=== PATIENT | male | born 1955 | race Caucasian/White ===

== ENCOUNTER 2017-04-21 23:55 | Inpatient (IN) ==
[2017-04-22] MEDS ORDERED: Furosemide 40 MG/4 ML VIAL IVP ONE (00:29)
--- NOTE | 2017-04-22 00:42 | Emergency Department Note ---
Disposition Clinical Impression: Anemia Qualifiers: Anemia type: unspecified type Qualified Code(s): D64.9 - Anemia, unspecified Disposition: Admitted As Inpatient Referrals: Unassigned,Provider [Non-Partnered Physician] - Forms: Work/School Release, ED Satisfaction Letter Time of Disposition: 01:37 SOB HPI - General Chief Complaint: ED General Medical Stated Complaint: "Low BP" Time Seen by Provider: 04/22/17 00:27 Source: patient Mode of arrival: ambulatory Limitations: no limitations Nursing Notes Reviewed: Yes Vital Signs Reviewed: Yes - History of Present Illness Patient reports increased weakness with dyspnea. States he had pneumonia about 2 months ago, and has been feeling "poorly" since that time. He typically has atrial fib and takes Xarelto for that. He is also on [place], Cardiazem. States his blood pressure has been low at home. Tonight his heart rate is in the 40's and in Sinus Bradycardia. Blood pressure is stable. He denies any dark tarry stools, but does have external hemorrhoids and reports he has had some bright red blood with stooling but felt this was from the hemorrhoids. No emesis of blood or coffee ground material. Pt Subjective Complaint: shortness of breath Onset (ago): week(s) (2) Context: recent illness Severity: moderate Consistency/Duration: gradually worsening Improves with: nothing Worsens with: exertion Known history of: recurrent pneumonia Associated symptoms: Reports: wheezing, other (bilateral lower extremity edema ) Treatment prior to arrival: none Cough present: No Sputum production: No - Related Data Home oxygen amount: none Home Medications Medication Instructions Recorded Confirmed Aspirin [Adult Low Dose Aspirin EC] 81 mg PO DAILY 02/02/16 07/30/16 Atorvastatin Calcium [Lipitor] 80 mg PO DAILY 02/02/16 07/30/16 Lisinopril [Zestril] 10 mg PO DAILY 02/02/16 07/30/16 Metoprolol [Lopressor] 50 mg PO BID 02/02/16 07/30/16 HYDROcodone/Acet 10/325 mg [[place] 1 tab PO Q6HR PRN 07/30/16 07/30/16 10-325 mg] Nitroglycerin [Nitrostat] 0.4 mg SL AD 07/30/16 07/30/16 Previous Rx's Medication Instructions Recorded Budesonide/Formoterol 80/4.5 1 puff IH BID #1 hfa.aer.ad 07/28/16 [Symbicort 80/4.5] Ipratropium/Albuterol Neb [Duoneb] 3 ml IH [id number] PRN #30 inhsol 07/28/16 Tiotropium [Spiriva] 18 mcg IH DAILY #30 capsule 07/28/16 predniSONE [PredniSONE] 10 mg PO DAILY 12 Days 07/28/16 Diltiazem CD (24hr) [Cardizem CD] 240 mg PO DAILY #30 cap.er.24h 08/02/16 GuaiFENesin ER [Mucinex] 600 mg PO BID tbbp.12hr 08/02/16 Rivaroxaban [Xarelto] 20 mg PO 1700 #30 tablet 08/02/16 levoFLOXacin [Levofloxacin] 750 mg PO DAILY #12 tablet 08/02/16 Levofloxacin [Levaquin] 750 mg PO DAILY #9 tablet 03/11/17 Allergies Allergy/AdvReac Type Severity Reaction Status Date / Time No Known Allergies Allergy Verified 04/22/17 00:07 Constitutional: Denies: fever, chills, weakness, weight change Eyes: Denies: eye pain, eye discharge, vision change ENT ED: Denies: ear pain, throat pain, dental pain, hearing loss, epistaxis, congestion, dysphagia Cardiovascular: Reports: dyspnea on exertion Respiratory: Reports: dyspnea Gastrointestinal: Denies: abdominal pain, nausea, vomiting, diarrhea, constipation, hematemesis, melena, hematochezia Genitourinary: Denies: urgency, dysuria, frequency, hematuria Musculoskeletal: Denies: back pain, neck pain, arthralgia, myalgia Integumentary: Denies: rash, abrasion, lesions Past Medical History - Past Medical History Attestation: Yes The following information was validated with the patient. Source: patient, nursing notes reviewed Medical history: Reports: asthma, atrial fibrillation, cardiomyopathy, CHF, COPD , coronary artery disease, hyperlipidemia, hypertension Surgical history: Reports: coronary bypass (CABG), herniorrhaphy, other Psychiatric history: Reports: anxiety - Social History Smoking Status: Former smoker Smokeless Tobacco Status: No Alcohol use: Reports: none Drug use: Reports: marijuana Physical Exam - General Limitations: no limitations General appearance: alert - Head Head exam: atraumatic, normocephalic, normal inspection - Eye Eye exam: Present: normal appearance, PERRL, EOMI - ENT ENT exam: normal exam, normal oropharynx, mucous membranes moist - Neck Neck exam: Present: normal inspection, full ROM, trachea midline - Chest Chest inspection: Present: normal inspection, symmetric chest wall rise - Respiratory Respiratory exam: Present: normal lung sounds bilaterally - Cardiovascular Cardiovascular exam: Present: normal rhythm, bradycardia - Abdominal Exam Abdominal exam: Present: soft, Non-Tender. Absent: tenderness, distention, guarding, rebound, rigidity - Extremities Exam Extremities exam: Present: normal inspection, full ROM. Absent: tenderness, pedal edema - Back Exam Back exam: Present: normal inspection, full ROM. Absent: tenderness - Neurological Exam Neurological exam: Present: alert, oriented X3, CN II-XII intact, normal gait, reflexes normal - Psychiatric Psychiatric exam: Present: normal affect, normal mood - Skin Skin exam: Present: warm, dry, intact, normal color Course Vital Signs Temperature 98.1 F 04/22/17 00:07 Pulse Rate 43 04/22/17 00:07 Respiratory Rate 24 04/22/17 00:07 Blood Pressure 112/62 04/22/17 00:07 O2 Sat by Pulse Oximetry 93 04/22/17 00:07 Temperature 98.1 F 04/22/17 00:07 Pulse Rate 44 04/22/17 01:23 Respiratory Rate 18 04/22/17 01:23 Blood Pressure 122/77 04/22/17 01:23 O2 Sat by Pulse Oximetry 100 04/22/17 01:23 Oxygen Delivery Oxygen Delivery Nasal Cannula Shortness of Breath/Dyspnea - [facility] Narrative Medical decision making narrative: anemia - Lab Data Lab results reviewed: Yes I reviewed the patient's lab results. Result diagrams: 04/22/17 00:51 04/22/17 00:51 Lab Results 04/22/17 04/22/17 04/22/17 Range/Units 00:51 00:51 00:51 WBC 10.4 (4.3-11.1) K/mcL RBC 2.82 L (4.19-5.50) M/mcL Hgb 6.7 L (12.9-16.9) g/dL Hct 22.9 L (37.5-50.1) % MCV 81.2 L (83.0-100.0) fL MCH 23.8 L (28.0-33.3) pg MCHC 29.3 L (31.6-35.5) g/dL RDW 16.0 H (11.5-14.5) % Plt Count 268 (140-400) K/mcL MPV 9.6 (9.4-12.4) fL Immature Gran % 0.5 (0-4) % Seg Neutrophils % 70.4 % Lymphocytes % 16.4 % Monocytes % 11.2 % Eosinophils % 1.4 % Basophils % 0.1 % Neutrophils # 7.3 (1.6-8.9) K/mcL Lymphocytes # 1.7 (0.6-4.6) K/mcL Monocytes # 1.2 (0.0-1.3) K/mcL Eosinophils # 0.2 (0.0-0.6) K/mcL Basophils # 0.0 (0.0-0.2) K/mcL Sodium 139 (136-145) mEq/L Potassium 4.7 H (3.5-4.5) mEq/L Chloride 106 (98-109) mEq/L Carbon Dioxide 24 (19-29) mEq/L BUN 27 H (8-26) mg/dL Creatinine 0.96 (0.72-1.25) mg/dL Est GFR ( Amer) > 60 (> 60) Est GFR (Non-Af Amer) > 60 (> 60) BUN/Creatinine Ratio 28 H (6-26) Glucose 102 H (70-99) mg/dL Calculated Osmolality 293 (280-300) Lactic Acid 0.8 (0.5-2.2) mmol/L Calcium 8.6 (8.6-10.8) mg/dL Troponin I (0-0.03) ng/mL B-Natriuretic Peptide (0-100) pg/mL 04/22/17 04/22/17 Range/Units 00:51 00:51 WBC (4.3-11.1) K/mcL RBC (4.19-5.50) M/mcL Hgb (12.9-16.9) g/dL Hct (37.5-50.1) % MCV (83.0-100.0) fL MCH (28.0-33.3) pg MCHC (31.6-35.5) g/dL RDW (11.5-14.5) % Plt Count (140-400) K/mcL MPV (9.4-12.4) fL Immature Gran % (0-4) % Seg Neutrophils % % Lymphocytes % % Monocytes % % Eosinophils % % Basophils % % Neutrophils # (1.6-8.9) K/mcL Lymphocytes # (0.6-4.6) K/mcL Monocytes # (0.0-1.3) K/mcL Eosinophils # (0.0-0.6) K/mcL Basophils # (0.0-0.2) K/mcL Sodium (136-145) mEq/L Potassium (3.5-4.5) mEq/L Chloride (98-109) mEq/L Carbon Dioxide (19-29) mEq/L BUN (8-26) mg/dL Creatinine (0.72-1.25) mg/dL Est GFR ( Amer) (> 60) Est GFR (Non-Af Amer) (> 60) BUN/Creatinine Ratio (6-26) Glucose (70-99) mg/dL Calculated Osmolality (280-300) Lactic Acid (0.5-2.2) mmol/L Calcium (8.6-10.8) mg/dL Troponin I 0.03 (0-0.03) ng/mL B-Natriuretic Peptide 583 H (0-100) pg/mL - Radiology Data Radiology results reviewed: Yes I reviewed the patient's radiology results.
[2017-04-22 00:57] LABS: Hematocrit 22.9 % (37.5-50.1); Immature Granulocytes % 0.5 % (0-4); Lymphocytes % 16.4 %; Mean Corpuscular HGB Conc 29.3 g/dL (31.6-35.5); Mean Corpuscular Hemoglobin 23.8 pg (28.0-33.3); Mean Corpuscular Volume 81.2 fL (83.0-100.0); Mean Platelet Volume 9.6 fL (9.4-12.4); Monocytes % 11.2 %; Platelet Count 268 K/mcL (140-400); Red Blood Count 2.82 M/mcL (4.19-5.50); Segmented Neutrophils % 70.4 %
[2017-04-22 00:58] LABS: Basophils % 0.1 %; Eosinophils # 0.2 K/mcL (0.0-0.6); Eosinophils % 1.4 %; Hemoglobin 6.7 g/dL (12.9-16.9); Lymphocytes # 1.7 K/mcL (0.6-4.6); Monocytes # 1.2 K/mcL (0.0-1.3); Neutrophils # 7.3 K/mcL (1.6-8.9)
[2017-04-22 01:10] LABS: BUN/Creatinine Ratio 28 (6-26); Blood Urea Nitrogen 27 mg/dL (8-26); Calcium 8.6 mg/dL (8.6-10.8); Carbon Dioxide 24 mEq/L (19-29); Chloride 106 mEq/L (98-109); Glucose 102 mg/dL (70-99); Osmolality,Calculated 293 (280-300); Potassium 4.7 mEq/L (3.5-4.5); Sodium 139 mEq/L (136-145); eGFR For African Americans > 60 (> 60); eGFR For Non-African Americans > 60 (> 60)
[2017-04-22] MEDS ORDERED: Ondansetron 4 MG/2 ML VIAL IVP PRN (01:46)
[2017-04-22] MEDS ORDERED: Naloxone 0.4 MG/ML INJ IVP PRN (01:46)
[2017-04-22] MEDS ORDERED: Acetaminophen 325 MG TABLET PO PRN (01:46)
--- NOTE | 2017-04-22 01:52 | Internal Med History&Physical ---
Date of Encounter: 04/22/17 Time of Encounter: 02:00 Assessment and Plan (1) Anemia Current visit: Yes Status: Acute Patient presents with hemoglobin of 6.7 which is down from 12 over 3 months ago. He presents with shortness of breath, lightheadedness and swelling in his legs. Patient has been on anticoagulation for the past year. He has never had a colonoscopy. He will be admitted to the hospital to inpatient status. Expected to be in the hospital for at least 2 midnights. High risk due to need for blood transfusion and close monitoring as the patient is at risk of hemorrhagic shock from further blood loss. Expected discharge disposition is to home. Hold anticoagulation. Transfuse 3 units. Qualifiers: Anemia type: iron deficiency Iron deficiency anemia type: chronic blood loss Qualified Code(s): D50.0 - Iron deficiency anemia secondary to blood loss (chronic) (2) Atrial fibrillation Current visit: Yes Status: Chronic Status post transesophageal echocardiogram and cardioversion. Patient has bradycardia on his EKG. Continue Cardizem. Hold beta rickie. Hold anticoagulation as the patient has anemia which is likely due to GI blood loss. Qualifiers: Atrial fibrillation type: paroxysmal Qualified Code(s): I48.0 - Paroxysmal atrial fibrillation (3) CAD (coronary artery disease) Current visit: Yes Status: Chronic Status post CABG in 2013. Hold aspirin as the patient presents with anemia that is likely due to GI blood loss. Resume statin. Hold beta rickie as the patient has bradycardia. Resume Cardizem. Qualifiers: Coronary Disease-Associated Artery/Lesion type: [place] artery [place] vs. transplanted heart: [place] heart Associated angina: without angina Qualified Code(s): I25.10 - Atherosclerotic heart disease of [place] coronary artery without angina pectoris (4) Hypertension Current visit: Yes Status: Chronic Patient has borderline low blood pressure. Hold antihypertensive medications for now. Qualifiers: Hypertension type: essential hypertension Qualified Code(s): I10 - Essential (primary) hypertension (5) GI bleed Current visit: Yes Status: Suspected Suspected GI bleed as the cause of his anemia. Hold anticoagulation. Patient never had colonoscopy. If the patient has any GI bleed during the hospital, will consider GI consult for colonoscopy inpatient. Otherwise, the patient's hemoglobin remained stable after transfusion, he can be deferred to GI as an outpatient for colonoscopy. Qualifiers: GI bleed type/associated pathology: unspecified gastrointestinal hemorrhage type Qualified Code(s): K92.2 - Gastrointestinal hemorrhage, unspecified (6) Screening for colon cancer Current visit: Yes Status: Acute Needs inpatient versus outpatient referral to GI for colonoscopy depending on his progress. Patient is agreeable to colonoscopy by GI. Internal Medicine - H&P: HPI Chief complaint: Shortness of breath Admitted From: Emergency Dept Plans for Post Hospital Care: Home History of present illness: Mr. Johnson is a 62 year old male with a history of coronary artery disease status post CABG and atrial fibrillation status post cardioversion currently on anticoagulation presents to the emergency department due to shortness of breath over the past 1 month. Patient states that his shortness of breath has been going on for one month and has been gradually getting worse to the point now where he short of breath even at rest. One month ago, he called his primary care physician and has been seen by his physician multiple times. He was given antibiotics for presumed COPD exacerbation and he states that he had minimal improvement in his shortness of breath. Shortness of breath is associated with cough productive of green colored sputum and wheezing. He also reports lightheadedness that gets worse with activity and relieves with rest. He denies any chest pain, palpitations, nausea, vomiting, abdominal pain, diarrhea acculturation. He denies any history of blood in the stools or lack colored stools. He reports swelling in his legs over the past week which is worse today. All these symptoms prompted him to present to the emergency department today. In the emergency room, his hemoglobin was found to be 6.7 down from 12 about 3 months ago. He states that he has been on anticoagulation for over one year for a clot in his arm. He states that his CABG surgery was in 2013. He also reports that he has been having low blood pressure of 90 systolic all day today. He called his gas compressor operator who recommended that he hold his lisinopril and go to the emergency department if it does not make him feel better. He denies any recent weight changes. He denies any recent changes in his appetite. He states that he has never had a colonoscopy done. Past Med Surg Social Fam HX - Past Medical History Attestation: Yes The following information was validated with the patient. Source: patient Medical history: asthma, atrial fibrillation, cardiomyopathy, CHF, COPD, coronary artery disease, hyperlipidemia, hypertension Psychiatric history: anxiety - Past Surgical History Surgical History: coronary bypass (CABG), herniorrhaphy, other - Social History Smoking Status: Former smoker Smokeless Tobacco Status: No Alcohol use: none Drug use: marijuana Current living situation: Home, With Family Activity Level: Independent ambulation Recent Out of Country Travel Within the Last 8 Weeks: No Exposure or Possible Exposure to Illness During Travel: No - Family History Mother Living Status: Hx Family Neurologic Disorders: Yes (Alzheimer's) Father Living Status: Hx Family GI Disorders: Yes (Liver disease, alcoholism) Internal Medicine - H&P: Meds Aspirin [Adult Low Dose Aspirin EC] 81 mg PO DAILY 02/02/16 [History] Atorvastatin Calcium [Lipitor] 80 mg PO DAILY 02/02/16 [History] Lisinopril [Zestril] 10 mg PO DAILY 02/02/16 [History] Metoprolol [Lopressor] 50 mg PO BID 02/02/16 [History] Budesonide/Formoterol 80/4.5 [Symbicort 80/4.5] 1 puff IH BID #1 hfa.aer.ad [Rx] Ipratropium/Albuterol Neb [Duoneb] 3 ml IH [id number] PRN #30 inhsol 07/28/16 [Rx] Tiotropium [Spiriva] 18 mcg IH DAILY #30 capsule 07/28/16 [Rx] predniSONE [PredniSONE] 10 mg PO DAILY 12 Days 07/28/16 [Rx] HYDROcodone/Acet 10/325 mg [[place] 10-325 mg] 1 tab PO Q6HR PRN 07/30/16 [History ] Nitroglycerin [Nitrostat] 0.4 mg SL AD 07/30/16 [History] Diltiazem CD (24hr) [Cardizem CD] 240 mg PO DAILY #30 cap.er.24h 08/02/16 [Rx] GuaiFENesin ER [Mucinex] 600 mg PO BID tbbp.12hr 08/02/16 [Rx] Rivaroxaban [Xarelto] 20 mg PO 1700 #30 tablet 08/02/16 [Rx] levoFLOXacin [Levofloxacin] 750 mg PO DAILY #12 tablet 08/02/16 [Rx] Levofloxacin [Levaquin] 750 mg PO DAILY #9 tablet 03/11/17 [Rx] Allergies No Known Allergies Allergy (Verified 04/22/17 00:07) All Systems PM: A 10-system review of systems was performed and is negative for pertinent findings except as documented above in the HPI. Review of systems: 10 systems reviewed and negative except as mentioned in the HPI - Constitutional Vitals: Temp Pulse Resp BP Pulse Ox 98.1 F 44 18 122/77 100 04/22/17 00:07 04/22/17 01:23 04/22/17 01:23 04/22/17 01:23 04/22/17 01:23 Exam: Gen.: Lying in bed. Mild distress. Eyes: Pupils equal, round and reactive to light. Extraocular muscles intact. ENT: Moist mucous membranes. No oropharyngeal erythema or discharge. Chest: Clear to auscultation bilaterally. No adventitious sounds present. CVS: First and second heart sounds present. No murmurs, rubs or gallops. Bradycardia present. Abdomen: Soft, nontender, nondistended. Bowel sounds present. No hepatosplenomegaly. Skin: No decubitus ulcers appreciated. MATHEMATICS TEACHER: No focal neuro deficits present. Psychiatric: Alert, awake and oriented to time, place and person. Lymphatic system: No lymphadenopathy appreciated Internal Med - H&P Results - Labs CBC & Chem 7: 04/22/17 02:05 04/22/17 00:51 Labs: Short CBC 04/22/17 Range/Units 00:51 WBC 10.4 (4.3-11.1) K/mcL Hgb 6.7 L (12.9-16.9) g/dL Hct 22.9 L (37.5-50.1) % Plt Count 268 (140-400) K/mcL Neutrophils # 7.3 (1.6-8.9) K/mcL BMP 04/22/17 00:51 Sodium 139 Potassium 4.7 H Chloride 106 Carbon Dioxide 24 BUN 27 H Creatinine 0.96 Glucose 102 H Calcium 8.6 Cardiac Enzymes 04/22/17 Range/Units 00:51 Troponin I 0.03 (0-0.03) ng/mL - EKG Data -: EKG Interpreted by Myself EKG shows normal: sinus rhythm Rate: bradycardia - EKG Data Prior EKG available for review: yes When compared to previous EKG: there are significant changes (Prior showed A.Fib ) - Diagnostic Studies Chest x-ray Status: image reviewed by me (s/p CABG; Hyperinflation)
[2017-04-22 02:06] LABS: Immature Reticulocyte % 14.4 % (11.0-38.0); Retculocyte # 0.05 M/mcL (0.05-0.10); Reticulocyte % 1.6 % (1.6-2.8)
[2017-04-22 02:15] LABS: % Iron Saturation 7 % (20-55); Iron 22 mcg/dL (65-175); Lactate Dehydrogenase 214 Units/L (159-327); Transferrin 212 mg/dL (174-364)
[2017-04-22 02:17] LABS: Basophils % 0.1 %; Eosinophils # 0.2 K/mcL (0.0-0.6); Eosinophils % 1.5 %; Immature Granulocytes % 0.4 % (0-4); Lymphocytes # 1.7 K/mcL (0.6-4.6); Mean Corpuscular HGB Conc 29.2 g/dL (31.6-35.5); Mean Corpuscular Hemoglobin 23.6 pg (28.0-33.3); Mean Corpuscular Volume 80.8 fL (83.0-100.0); Mean Platelet Volume 9.8 fL (9.4-12.4); Monocytes # 1.1 K/mcL (0.0-1.3); Monocytes % 10.5 %; Neutrophils # 7.5 K/mcL (1.6-8.9); Platelet Count 296 K/mcL (140-400); Red Blood Count 2.97 M/mcL (4.19-5.50); Red Cell Distribution Width 16.1 % (11.5-14.5); Segmented Neutrophils % 71.5 %
[2017-04-22 02:29] LABS: Alanine Aminotransferase 19 Units/L (0-55); Albumin 3.1 g/dL (3.5-5.0); Albumin/Globulin Ratio 0.9 (1.1-2.2); Alkaline Phosphatase 79 Units/L (38-126); Aspartate Amino Transferase 26 Units/L (5-34); BUN/Creatinine Ratio 25 (6-26); Bilirubin,Total 0.3 mg/dL (0.2-1.2); Blood Urea Nitrogen 27 mg/dL (8-26); Calcium 8.9 mg/dL (8.6-10.8); Carbon Dioxide 27 mEq/L (19-29); Chloride 104 mEq/L (98-109); Globulin 3.4 g/dL (2.4-3.5); Glucose 109 mg/dL (70-99); Osmolality,Calculated 292 (280-300); Potassium 4.3 mEq/L (3.5-4.5); Sodium 138 mEq/L (136-145); Total Protein 6.5 g/dL (6.0-8.3); eGFR For African Americans > 60 (> 60); eGFR For Non-African Americans > 60 (> 60)
[2017-04-22 02:35] LABS: Ferritin 25 ng/ml (22-275)
[2017-04-22] MEDS ORDERED: 0.9 % Sodium Chloride 250 ML ONE ×3 (03:48→13:30)
[2017-04-22] MEDS: Diltiazem CD (24hr) 240 MG CAPSULE PO SCH (09:01)
[2017-04-22] MEDS ORDERED: Sennosides/Docusate Sodium TABLET PO PRN (09:14)
[2017-04-22] MEDS: Budesonide/Formoterol 80/4.5 MDI IH SCH ×2 (11:01→21:50)
[2017-04-22] MEDS ORDERED: Furosemide 20 MG/2 ML VIAL IVP ONE (15:38)
[2017-04-22] MEDS: *HR* HYDROcodone/Acet 10/325 mg TABLET PO PRN ×2 (15:52→21:59)
[2017-04-22 17:13] LABS: Hematocrit 30.6 % (37.5-50.1)
[2017-04-22 17:15] LABS: Hemoglobin 9.5 g/dL (12.9-16.9)
[2017-04-23] MEDS: *HR* HYDROcodone/Acet 10/325 mg TABLET PO PRN ×2 (04:14→10:06)
[2017-04-23] MEDS: Budesonide/Formoterol 80/4.5 MDI IH SCH (07:45)
[2017-04-23] MEDS: Diltiazem CD (24hr) 240 MG CAPSULE PO SCH (07:52)
[2017-04-23 08:39] LABS: Basophils % 0.3 %; Eosinophils # 0.2 K/mcL (0.0-0.6); Hematocrit 35.2 % (37.5-50.1); Hemoglobin 10.9 g/dL (12.9-16.9); Immature Granulocytes % 0.6 % (0-4); Lymphocytes # 1.8 K/mcL (0.6-4.6); Lymphocytes % 15.8 %; Mean Corpuscular Hemoglobin 25.2 pg (28.0-33.3); Mean Corpuscular Volume 81.3 fL (83.0-100.0); Mean Platelet Volume 9.9 fL (9.4-12.4); Monocytes # 0.9 K/mcL (0.0-1.3); Monocytes % 7.7 %; Neutrophils # 8.3 K/mcL (1.6-8.9); Platelet Count 287 K/mcL (140-400); Red Blood Count 4.33 M/mcL (4.19-5.50); Segmented Neutrophils % 73.6 %
[2017-04-23 08:49] LABS: BUN/Creatinine Ratio 16 (6-26); Calcium 9.1 mg/dL (8.6-10.8); Carbon Dioxide 26 mEq/L (19-29); Chloride 105 mEq/L (98-109); Glucose 97 mg/dL (70-99); Osmolality,Calculated 290 (280-300); Potassium 4.2 mEq/L (3.5-4.5); Sodium 140 mEq/L (136-145); eGFR For African Americans > 60 (> 60); eGFR For Non-African Americans > 60 (> 60)
[2017-04-23 08:50] LABS: Blood Urea Nitrogen 13 mg/dL (8-26)
[2017-04-23] MEDS ORDERED: Tiotropium 18 MCG inhalation IH SCH (09:00)
--- NOTE | 2017-04-23 09:53 | Electrocardiograph Report ---
[address] [place] [address] Test Date: 2017-04-22 Pat Name: Jaylen Johnson Department: 104 Room: 3A43 Gender: M Public Health Informatician: [facility] : 1955 Requested By: Mansoor Lara Order Number: [id number] Reading MD: Juve Hassan MD Measurements Intervals [place] Rate: 42 P: 83 VT: 190 QRS: 82 QRSD: 92 T: 73 QT: 474 QTc: 417 Interpretive Statements SINUS BRADYCARDIA Electronically Signed On 04-23-2017 9:51:38 EDT by Juve Hassan MD
[2017-04-23 10:55] VITALS: BP 140/81
--- NOTE | 2017-04-23 11:30 | Discharge Summary ---
Date of Encounter: 04/23/17 Time of Encounter: 11:28 - Discharge Diagnosis (1) Hypertension Priority: Secondary Status: Chronic Qualifiers: Hypertension type: essential hypertension Qualified Code(s): I10 - Essential (primary) hypertension (2) Dyslipidemia Priority: Secondary Status: Chronic (3) CAD (coronary artery disease) Priority: Secondary Status: Chronic Qualifiers: Coronary Disease-Associated Artery/Lesion type: [place] artery [place] vs. transplanted heart: [place] heart Associated angina: without angina Qualified Code(s): I25.10 - Atherosclerotic heart disease of [place] coronary artery without angina pectoris (4) History of coronary artery bypass graft Priority: Secondary Status: Chronic (5) Atrial fibrillation Priority: Secondary Status: Chronic Qualifiers: Atrial fibrillation type: paroxysmal Qualified Code(s): I48.0 - Paroxysmal atrial fibrillation (6) Anemia Priority: Primary Status: Acute Qualifiers: Anemia type: iron deficiency Iron deficiency anemia type: chronic blood loss Qualified Code(s): D50.0 - Iron deficiency anemia secondary to blood loss (chronic) (7) GI bleed Priority: Primary Status: Suspected Qualifiers: GI bleed type/associated pathology: unspecified gastrointestinal hemorrhage type Qualified Code(s): K92.2 - Gastrointestinal hemorrhage, unspecified - Discharge Medications Prescriptions: Hydrocortisone [Anusol-Hc] 30 gm RC DAILY #2 cream..g. Home Medications: Aspirin [Adult Low Dose Aspirin EC] 81 mg PO DAILY 02/02/16 [History] Atorvastatin Calcium [Lipitor] 80 mg PO DAILY 02/02/16 [History] Lisinopril [Zestril] 10 mg PO DAILY 02/02/16 [History] Budesonide/Formoterol 80/4.5 [Symbicort 80/4.5] 1 puff IH BID #1 hfa.aer.ad [Rx] Tiotropium [Spiriva] 18 mcg IH DAILY #30 capsule 07/28/16 [Rx] HYDROcodone/Acet 10/325 mg [[place] 10-325 mg] 1 tab PO Q6HR PRN 07/30/16 [History ] Nitroglycerin [Nitrostat] 0.4 mg SL AD PRN 07/30/16 [History] Diltiazem CD (24hr) [Cardizem CD] 240 mg PO DAILY #30 cap.er.24h 08/02/16 [Rx] Amiodarone [Cordarone] 200 mg PO DAILY 04/22/17 [History] Clotrimazole [Mycelex Davin] 10 mg MM TID 04/22/17 [History] Levalbuterol Neb [Xopenex Neb] 0.63 mg IH TID 04/22/17 [History] diazePAM [Valium] 5 mg PO TID PRN 04/22/17 [History] Hydrocortisone [Anusol-Hc] 30 gm RC DAILY #2 cream..g. 04/23/17 [Rx] Allergies/Adverse Reactions: Allergies No Known Allergies Allergy (Verified 04/22/17 00:07) Date of admission: 04/22/17 02:10 Primary care physician: Eleazar Kee CNP Discharging clinician: Darcy Darnell date of discharge: 04/23/17 - Patient Status Disposition: Home, Self-Care Condition: Fair Functional capacity at discharge: independent ambulation Overall status at discharge: patient is back to baseline - Discharge Instructions Instructions: Atrial Fibrillation (DC), Anemia (GEN) Follow Up With: Josep Alcala DO [Partnered Physician] - 04/24/17 4:30 pm Eleazar Kee CNP [Primary Care Provider] - 04/30/17 11:00 am - Diet and Activity Activity: resume usual activities as tolerated Diet: advance to your usual diet Interval History: Mr. Johnson is a 62 year old male with a history of coronary artery disease status post CABG and atrial fibrillation status post cardioversion currently on anticoagulation presents to the emergency department due to shortness of breath over the past 1 month. In the emergency room, his hemoglobin was found to be 6.7 down from 12 about 3 months ago. He states that he has been on anticoagulation for over one year for a clot in his arm. He states that his CABG surgery was in 2013. He also reports that he has been having low blood pressure of 90 systolic all day today. He called his pictures editor who recommended that he hold his lisinopril and go to the emergency department if it does not make him feel better. he reports BRB SC and says that he suffers from chronic hemorrhoids and has been having bleeding SC for a few months now. He states that he has never had a colonoscopy done. HE denies any abdominal pain , n/v his xarelto was held adn he was trasfused with 3 units of PRBC his repeat h/h is 10.5 today and he is asymptomatic, he was noted to have sinus bradycardia at high 40s -50s on presentation. his metoprolol has been held and his cardizem was only restarted for the concern of bradycardia. he will be given an appt. to see surgery as OP for colonoscopy and was also advised to follow up with his pictures editor at [facility] to restart his xarelto and metoprolol patient agrees with the plan and is being dc in stable condition. Hospital course: Mr. Johnson is a 62 year old male Time spent discussing smoking cessation with patient: more than 10 minutes - Time Spent with Patient Total time spent providing and/or coordinating discharge services: Greater than 30 minutes - Constitutional Vitals: Temp Pulse Resp BP Pulse Ox 98.3 F 61 16 140/81 92 04/23/17 10:54 04/23/17 10:54 04/23/17 10:54 04/23/17 10:54 04/23/17 10:54 General appearance: Present: A&O X 3 Exam: Gen.: Lying in bed. Mild distress. Eyes: Pupils equal, round and reactive to light. Extraocular muscles intact. ENT: Moist mucous membranes. No oropharyngeal erythema or discharge. Chest: Clear to auscultation bilaterally. No adventitious sounds present. CVS: First and second heart sounds present. No murmurs, rubs or gallops. Bradycardia present. Abdomen: Soft, nontender, nondistended. Bowel sounds present. No hepatosplenomegaly. Skin: No decubitus ulcers appreciated. CERTIFIED NURSE PRACTITIONER: No focal neuro deficits present. Psychiatric: Alert, awake and oriented to time, place and person. Lymphatic system: No lymphadenopathy appreciated
== END 2017-04-23 13:15 | disposition home or self-care (01) | DRG 812 ==
LOC: EMEROO 23:55 → 3ANU 04-22 02:10
PROVIDERS: ADMIT Internal Medicine Sleep Medicine; ATTEND Internal Medicine Endocrinology, Diabetes & Metabolism

== ENCOUNTER 2017-10-04 18:10 | Inpatient (IN) ==
[2017-10-04] MEDS ORDERED: Aspirin 81 MG TAB.CHEW PO ONE (18:22)
[2017-10-04] MEDS ORDERED: methylPREDNISolone 125 MG/2 ML VIAL IVP ONE (18:23)
[2017-10-04] MEDS ORDERED: Ipratropium/Albuterol Neb 3 ML IH ONE (18:23)
--- NOTE | 2017-10-04 18:25 | Emergency Department Note ---
START Narrative - START START: START NOTE: Patient was seen and evaluated upon his arrival to the medical treatment area. He complains of dyspnea and chest heaviness. History of intermittently oxygen dependent COPD. Also has a history of previous CABG. Patient overall chest and on exam with slight increased work of breathing. Family at bedside. Labs, portable chest x-ray, EKG were ordered. He will be given neb therapy and Solu-Medrol. Further care to be undertaken by the oncoming physician Dr. Lara
[2017-10-04 18:42] LABS: Basophils # 0.1 K/mcL (0.0-0.2); Basophils % 0.5 %; Eosinophils # 0.1 K/mcL (0.0-0.6); Eosinophils % 1.2 %; Hematocrit 29.7 % (37.5-50.1); Hemoglobin 9.4 g/dL (12.9-16.9); Immature Granulocytes % 0.3 % (0-4); Lymphocytes # 1.4 K/mcL (0.6-4.6); Lymphocytes % 14.1 %; Mean Corpuscular HGB Conc 31.6 g/dL (31.6-35.5); Mean Corpuscular Hemoglobin 27.9 pg (28.0-33.3); Mean Corpuscular Volume 88.1 fL (83.0-100.0); Mean Platelet Volume 9.9 fL (9.4-12.4); Monocytes # 0.8 K/mcL (0.0-1.3); Monocytes % 8.2 %; Neutrophils # 7.6 K/mcL (1.6-8.9); Platelet Count 268 K/mcL (140-400); Red Blood Count 3.37 M/mcL (4.19-5.50); Red Cell Distribution Width 14.7 % (11.5-14.5); Segmented Neutrophils % 75.7 %
[2017-10-04 18:46] LABS: INR 1.4; Prothrombin Time 15.3 Seconds (9.4-12.1)
[2017-10-04 18:56] LABS: Alanine Aminotransferase 18 Units/L (0-55); Albumin 3.2 g/dL (3.5-5.0); Albumin/Globulin Ratio 0.8 (1.1-2.2); Alkaline Phosphatase 100 Units/L (38-126); Aspartate Amino Transferase 19 Units/L (5-34); BUN/Creatinine Ratio 15 (6-26); Bilirubin,Direct 0.2 mg/dL (0.0-0.5); Bilirubin,Indirect 0.2 mg/dL (0.0-1.2); Bilirubin,Total 0.4 mg/dL (0.2-1.2); Blood Urea Nitrogen 18 mg/dL (8-26); Calcium 9.2 mg/dL (8.6-10.8); Carbon Dioxide 25 mEq/L (19-29); Chloride 106 mEq/L (98-109); Globulin 4.2 g/dL (2.4-3.5); Glucose 153 mg/dL (70-99); Osmolality,Calculated 295 (280-300); Potassium 4.4 mEq/L (3.5-4.5); Sodium 140 mEq/L (136-145); Total Protein 7.4 g/dL (6.0-8.3); eGFR For African Americans > 60 (> 60); eGFR For Non-African Americans > 60 (> 60)
[2017-10-04] MEDS ORDERED: *HR* FentaNYL (PF) 100 MCG/2 ML VIAL IVP ONE (19:26)
[2017-10-04] MEDS ORDERED: *HR* Midazolam HCl 2 MG/2 ML VIAL IVP ONE (19:27)
[2017-10-04] MEDS ORDERED: 0.9 % Sodium Chloride 1,000 ML ONE (19:36)
--- NOTE | 2017-10-04 20:20 | Emergency Department Note ---
Disposition Clinical Impression: Spontaneous pneumothorax Chest pain Qualifiers: Chest pain type: unspecified Qualified Code(s): R07.9 - Chest pain, unspecified Dyspnea Qualifiers: Dyspnea type: unspecified Qualified Code(s): R06.00 - Dyspnea, unspecified Disposition: Admitted As Inpatient Condition: Good Time of Disposition: 20:36 General Adult HPI - General Chief complaint: ED Chest Pain Stated complaint: ZONIA/CP Time Seen by Provider: 10/04/17 18:19 Source: patient, family Limitations: no limitations Nursing Notes Reviewed: Yes Vital Signs Reviewed: Yes - History of Present Illness HPI Narrative: 62-year-old male history of CAD s/p CABG, COPD, hypertension, atrial fibrillation presents to the ED for sudden shortness of breath and chest pain. Reports worsening shortness of breath over the past few days but this morning 3 AM he had sudden shortness of breath with chest pain especially with deep inspiration. Denies any recent trauma or injury. This was when he woke up from sleep. He was recently admitted for pneumonia. He has been noncompliant with his inhalers area denies any diaphoresis, nausea or vomiting. He takes Eliquis for prior DVT and his atrial fibrillation Pain Scale: 4 - Related Data Home Medications Medication Instructions Recorded Confirmed Aspirin [Adult Low Dose Aspirin EC] 81 mg PO DAILY 02/02/16 10/04/17 Atorvastatin Calcium [Lipitor] 80 mg PO DAILY 02/02/16 10/04/17 Lisinopril [Zestril] 10 mg PO BID 02/02/16 04/22/17 HYDROcodone/Acet 10/325 mg [[place] 1 tab PO Q6HR PRN 07/30/16 10/04/17 10-325 mg] Nitroglycerin [Nitrostat] 0.4 mg SL AD PRN 07/30/16 10/04/17 Amiodarone [Cordarone] 200 mg PO DAILY 04/22/17 10/04/17 Levalbuterol Neb [Xopenex Neb] 0.63 mg IH TID 04/22/17 10/04/17 Previous Rx's Medication Instructions Recorded Budesonide/Formoterol 80/4.5 1 puff IH BID #1 hfa.aer.ad 07/28/16 [Symbicort 80/4.5] Tiotropium [Spiriva] 18 mcg IH DAILY #30 capsule 07/28/16 Allergies Allergy/AdvReac Type Severity Reaction Status Date / Time No Known Allergies Allergy Verified 10/04/17 18:15 All systems ED: reviewed and negative except as stated. Review of Systems: As Per HPI Constitutional: Denies: fever, chills ENT ED: Denies: congestion Cardiovascular: Reports: chest pain, dyspnea on exertion Respiratory: Reports: cough, dyspnea Gastrointestinal: Denies: abdominal pain, nausea, vomiting Genitourinary: Denies: urgency, dysuria Musculoskeletal: Denies: back pain, neck pain Integumentary: Denies: rash, abrasion Neurological: Denies: headache, weakness, numbness Psychiatric: Reports: anxiety. Denies: depression Endocrine: Denies: fatigue Hematological/Lymphatic: Reports: easy bleeding. Denies: easy bruising Past Medical History - Past Medical History Attestation: Yes The following information was validated with the patient. Source: patient Medical history: Reports: asthma, atrial fibrillation, cardiomyopathy, CHF, COPD , coronary artery disease, hyperlipidemia, hypertension Surgical history: Reports: coronary bypass (CABG), herniorrhaphy, other Psychiatric history: Reports: anxiety - Social History Smoking Status: Former smoker Smokeless Tobacco Status: No Alcohol use: Reports: none Drug use: Reports: marijuana Physical Exam - General Limitations: no limitations General appearance: alert, in no apparent distress - Head Head exam: atraumatic, normocephalic, normal inspection - Eye Eye exam: Present: normal appearance, PERRL, EOMI - ENT ENT exam: normal exam, normal oropharynx, mucous membranes moist - Neck Neck exam: Present: normal inspection, full ROM, trachea midline - Chest Chest inspection: Present: normal inspection. Absent: tenderness - Expanded Chest Exam Trauma: Absent: crepitus, ecchymosis, wound - Respiratory Respiratory exam: Present: respiratory distress, wheezes (left), other ( diminished breath sounds RIGHT) - Expanded Respiratory Exam Location: decreased breath sounds: Right - Cardiovascular Cardiovascular exam: Present: regular rate, normal rhythm, normal heart sounds - Abdominal Exam Abdominal exam: Present: soft, Non-Tender, normal bowel sounds. Absent: tenderness, distention, guarding, rebound, rigidity - Extremities Exam Extremities exam: Present: normal inspection, full ROM, normal capillary refill , pedal edema (+1). Absent: tenderness, calf tenderness - Back Exam Back exam: Present: normal inspection, full ROM. Absent: tenderness - Neurological Exam Neurological exam: Present: alert, oriented X3 - Skin Skin exam: Present: warm, dry, intact, normal color Course Course Narrative: 62-year-old male history of COPD and CAD presents with difficulty breathing and chest heaviness. Started at 3 AM this morning. Recently admitted for pneumonia. He had some diminished breath sounds and treated with Solu-Medrol and DuoNeb treatments. Some mild improvement. EKG was reviewed and did not show any acute ischemic findings. Patient received full dose aspirin. Mild elevation and troponin. Reviewed his chest x-ray and showed a right side pneumothorax of moderate size which can explain the troponin elevation. He has some mild chronic anemia. Explained the risks and benefits of the pneumothorax and chest to placement. Informed consent was obtained. Under supervision by Dr. Lara and myself, Dr. Carias placed a right chest tube 28 [place] with immediate release of air and improvement of oxygen saturation. No complications , he was under cardiac monitoring the entire time and received 100 mg fentanyl and 2 mg versed while on 4 L nasal cannula. A timeout was performed. Post procedural chest x-ray reveals chest tube an adequate position. Patient will require admission for chest tube management. Impression is pneumothorax and dyspnea. - Reevaluation(s) Reevaluation #1: Please see separate procedure note by Dr. Carias for chest tube thoracostomy placement. - Consultations Consultation #1: Spoke with on-call hospitalist al Renee to admit for dyspnea, pneumothorax, chest pain. No further orders at this time Time: 21:01 Vital Signs Temperature 98.4 F 10/04/17 18:15 Pulse Rate 70 10/04/17 18:15 Respiratory Rate 17 10/04/17 18:15 Blood Pressure 131/77 10/04/17 18:15 O2 Sat by Pulse Oximetry 94 10/04/17 18:15 Temperature 97.8 F 10/05/17 03:53 Pulse Rate 66 10/05/17 03:53 Respiratory Rate 16 10/05/17 04:18 Blood Pressure 125/72 10/05/17 03:53 O2 Sat by Pulse Oximetry 92 10/05/17 04:18 Oxygen Delivery Oxygen Delivery Nasal Cannula Medical Decision Making - Medical Records Medical records reviewed: Yes I reviewed the patient's medical records. - Lab Data Lab results reviewed: Yes I reviewed the patient's lab results. Result diagrams: 10/05/17 04:22 10/05/17 04:22 Lab Results 10/04/17 10/04/17 10/04/17 Range/Units 18:32 18:32 18:32 WBC 10.1 (4.3-11.1) K/mcL RBC 3.37 L (4.19-5.50) M/mcL Hgb 9.4 L (12.9-16.9) g/dL Hct 29.7 L (37.5-50.1) % MCV 88.1 (83.0-100.0) fL MCH 27.9 L (28.0-33.3) pg MCHC 31.6 (31.6-35.5) g/dL RDW 14.7 H (11.5-14.5) % Plt Count 268 (140-400) K/mcL MPV 9.9 (9.4-12.4) fL Immature Gran % 0.3 (0-4) % Seg Neutrophils % 75.7 % Lymphocytes % 14.1 % Monocytes % 8.2 % Eosinophils % 1.2 % Basophils % 0.5 % Neutrophils # 7.6 (1.6-8.9) K/mcL Lymphocytes # 1.4 (0.6-4.6) K/mcL Monocytes # 0.8 (0.0-1.3) K/mcL Eosinophils # 0.1 (0.0-0.6) K/mcL Basophils # 0.1 (0.0-0.2) K/mcL PT 15.3 H (9.4-12.1) Seconds INR 1.4 Sodium (136-145) mEq/L Potassium (3.5-4.5) mEq/L Chloride (98-109) mEq/L Carbon Dioxide (19-29) mEq/L BUN (8-26) mg/dL Creatinine (0.72-1.25) mg/dL Est GFR ( Amer) (> 60) Est GFR (Non-Af Amer) (> 60) BUN/Creatinine Ratio (6-26) Glucose (70-99) mg/dL Calculated Osmolality (280-300) Calcium (8.6-10.8) mg/dL Total Bilirubin (0.2-1.2) mg/dL Direct Bilirubin (0.0-0.5) mg/dL Indirect Bilirubin (0.0-1.2) mg/dL AST (5-34) Units/L ALT (0-55) Units/L Alkaline Phosphatase (38-126) Units/L Troponin I (0-0.03) ng/mL B-Natriuretic Peptide 154 H (0-100) pg/mL Serum Total Protein (6.0-8.3) g/dL Albumin (3.5-5.0) g/dL Globulin (2.4-3.5) g/dL Albumin/Globulin Ratio (1.1-2.2) 10/04/17 10/04/17 Range/Units 18:32 18:32 WBC (4.3-11.1) K/mcL RBC (4.19-5.50) M/mcL Hgb (12.9-16.9) g/dL Hct (37.5-50.1) % MCV (83.0-100.0) fL MCH (28.0-33.3) pg MCHC (31.6-35.5) g/dL RDW (11.5-14.5) % Plt Count (140-400) K/mcL MPV (9.4-12.4) fL Immature Gran % (0-4) % Seg Neutrophils % % Lymphocytes % % Monocytes % % Eosinophils % % Basophils % % Neutrophils # (1.6-8.9) K/mcL Lymphocytes # (0.6-4.6) K/mcL Monocytes # (0.0-1.3) K/mcL Eosinophils # (0.0-0.6) K/mcL Basophils # (0.0-0.2) K/mcL PT (9.4-12.1) Seconds INR Sodium 140 (136-145) mEq/L Potassium 4.4 (3.5-4.5) mEq/L Chloride 106 (98-109) mEq/L Carbon Dioxide 25 (19-29) mEq/L BUN 18 (8-26) mg/dL Creatinine 1.19 (0.72-1.25) mg/dL Est GFR ( Amer) > 60 (> 60) Est GFR (Non-Af Amer) > 60 (> 60) BUN/Creatinine Ratio 15 (6-26) Glucose 153 H (70-99) mg/dL Calculated Osmolality 295 (280-300) Calcium 9.2 (8.6-10.8) mg/dL Total Bilirubin 0.4 (0.2-1.2) mg/dL Direct Bilirubin 0.2 (0.0-0.5) mg/dL Indirect Bilirubin 0.2 (0.0-1.2) mg/dL AST 19 (5-34) Units/L ALT 18 (0-55) Units/L Alkaline Phosphatase 100 (38-126) Units/L Troponin I 0.04 H* (0-0.03) ng/mL B-Natriuretic Peptide (0-100) pg/mL Serum Total Protein 7.4 (6.0-8.3) g/dL Albumin 3.2 L (3.5-5.0) g/dL Globulin 4.2 H (2.4-3.5) g/dL Albumin/Globulin Ratio 0.8 L (1.1-2.2) - Radiology Data Radiology results reviewed: Yes I reviewed the patient's radiology results. Chest X-Ray 10/04/17 20:13 IMPRESSION: Right-sided chest tube placement, with interval near complete evacuation of the right-sided pneumothorax. D/ / Pradip Bejarano MD / Pradip Bejarano MD Interpreting Provider: Pradip Bejarano MD - EKG Data EKG #1 EKG attestation: Yes I reviewed and interpreted this EKG. EKG results narrative: EKG performed 1822 sinus rhythm 67 bpm, normal axis, no ST elevation or depression, no T wave inversion, good R wave progression, intervals are within normal limits. Compared to old EKG performed 04/22/2017 showed sinus bradycardia 42 bpm, otherwise similar findings. No acute ischemic changes. Critical Care Time Critical Care Time: Yes Total Critical Care Time: 35 Attestation: Critical care performed: Time is exclusive of separately billable procedures. Time includes: direct patient care, patient reassessment, coordination of patient care, interpretation of data (laboratory data, radiology data, and respiratory data), review of patient's medical records, medical consultation and documentation of patient care. Procedures included in critical care time: Procedures excluded from critical care time: Right tube thoracostomy. Attestation Statement - Attestation Attestation: I, Mansoor Lara MD, personally evaluated this patient and discussed their management with the resident physician. I reviewed the resident's note and agree with the documented findings, medical decision making, and plan of care. 62-year-old male with history of COPD who is on home oxygen presents to the emergency department complaining of some increased shortness of breath over about the past week however about 3 AM today he awoke with significantly increased shortness of breath associated with some pleuritic chest pain. Some cough and some sputum production. No fever. Patient received DuoNeb treatments and Solu-Medrol on arrival. He continued to have the pleuritic chest pain and shortness of breath after treatments. Oxygen saturations in the low 90s. On examination patient is a well-developed well-nourished male in no acute distress. He is alert and oriented 3. There is no cyanosis or diaphoresis. Breath sounds are decreased on the right. There are some scattered expiratory wheezes bilaterally, worse on the left. Heart regular rate and rhythm. Abdomen soft and nontender with normal bowel sounds. Labs reviewed. Stable anemia. Troponin 0.04. EKG showed a normal sinus rhythm with no acute ischemic changes. Chest x-ray revealed a moderate sized right pneumothorax. Written consent was obtained and a chest tube was placed on the right without difficulty. Chest tube was placed by the resident, Dr. Carias, assisted by Dr. López under my direct supervision throughout the procedure. Patient tolerated the procedure well and post procedure x-ray shows reinflation of the collapsed lung. The hospitalist, Dr. Ansari, was consulted and accepted admission of the patient.
--- NOTE | 2017-10-04 20:58 | Emergency Department Note ---
Disposition Clinical Impression: Spontaneous pneumothorax Chest pain Qualifiers: Chest pain type: unspecified Qualified Code(s): R07.9 - Chest pain, unspecified Dyspnea Qualifiers: Dyspnea type: unspecified Qualified Code(s): R06.00 - Dyspnea, unspecified Disposition: Admitted As Inpatient Condition: Good Referrals: Eleazar Kee CNP [Primary Care Provider] - General Adult HPI - General Chief complaint: ED Chest Pain Stated complaint: ZONIA/CP Time Seen by Provider: 10/04/17 18:19 Source: patient, family Limitations: no limitations - History of Present Illness Pain Scale: 4 - Related Data Home Medications Medication Instructions Recorded Confirmed Aspirin [Adult Low Dose Aspirin EC] 81 mg PO DAILY 02/02/16 10/04/17 Atorvastatin Calcium [Lipitor] 80 mg PO DAILY 02/02/16 10/04/17 Lisinopril [Zestril] 10 mg PO BID 02/02/16 04/22/17 HYDROcodone/Acet 10/325 mg [[place] 1 tab PO Q6HR PRN 07/30/16 10/04/17 10-325 mg] Nitroglycerin [Nitrostat] 0.4 mg SL AD PRN 07/30/16 10/04/17 Amiodarone [Cordarone] 200 mg PO DAILY 04/22/17 10/04/17 Levalbuterol Neb [Xopenex Neb] 0.63 mg IH TID 04/22/17 10/04/17 Previous Rx's Medication Instructions Recorded Budesonide/Formoterol 80/4.5 1 puff IH BID #1 hfa.aer.ad 07/28/16 [Symbicort 80/4.5] Tiotropium [Spiriva] 18 mcg IH DAILY #30 capsule 07/28/16 Allergies Allergy/AdvReac Type Severity Reaction Status Date / Time No Known Allergies Allergy Verified 10/04/17 18:15 Constitutional: Denies: fever, chills ENT ED: Denies: congestion Cardiovascular: Reports: chest pain, dyspnea on exertion Respiratory: Reports: cough, dyspnea Gastrointestinal: Denies: abdominal pain, nausea, vomiting Genitourinary: Denies: urgency, dysuria Musculoskeletal: Denies: back pain, neck pain Integumentary: Denies: rash, abrasion Neurological: Denies: headache, weakness, numbness Psychiatric: Reports: anxiety. Denies: depression Endocrine: Denies: fatigue Hematological/Lymphatic: Reports: easy bleeding. Denies: easy bruising Past Medical History - Past Medical History Medical history: Reports: asthma, atrial fibrillation, cardiomyopathy, CHF, COPD , coronary artery disease, hyperlipidemia, hypertension Surgical history: Reports: coronary bypass (CABG), herniorrhaphy, other Psychiatric history: Reports: anxiety - Social History Smoking Status: Former smoker Smokeless Tobacco Status: No Alcohol use: Reports: none Drug use: Reports: marijuana Physical Exam - General Limitations: no limitations General appearance: alert, in no apparent distress Course Vital Signs Temperature 98.4 F 10/04/17 18:15 Pulse Rate 70 10/04/17 18:15 Respiratory Rate 17 10/04/17 18:15 Blood Pressure 131/77 10/04/17 18:15 O2 Sat by Pulse Oximetry 94 10/04/17 18:15 Temperature 98.4 F 10/04/17 18:15 Pulse Rate 66 10/04/17 20:05 Respiratory Rate 18 10/04/17 20:05 Blood Pressure 118/84 10/04/17 20:05 O2 Sat by Pulse Oximetry 96 10/04/17 20:05 Oxygen Delivery Oxygen Delivery Nasal Cannula Procedures - Chest Tube Chest Tube 1 Chest Tube Location: right Size of Tube (cm): 28 Chest Tube Prep: betadine prep Local Anesthetic: lidocaine 2%, with epi Incision Made With: #10 blade Post Procedure: sutured to skin, sterile dressing applied Tube Drainage: none Post Procedure CXR?: Yes Patient Tolerated Procedure: Yes Medical Decision Making - [facility] Narrative Medical decision making narrative: Chest X-Ray 10/04/17 20:13 IMPRESSION: Right-sided chest tube placement, with interval near complete evacuation of the right-sided pneumothorax. D/ / Pradip Bejarano MD / Pradip Bejarano MD Interpreting Provider: Pradip Bejarano MD - Lab Data Result diagrams: 10/04/17 18:32 10/04/17 18:32 Lab Results 10/04/17 10/04/17 10/04/17 Range/Units 18:32 18:32 18:32 WBC 10.1 (4.3-11.1) K/mcL RBC 3.37 L (4.19-5.50) M/mcL Hgb 9.4 L (12.9-16.9) g/dL Hct 29.7 L (37.5-50.1) % MCV 88.1 (83.0-100.0) fL MCH 27.9 L (28.0-33.3) pg MCHC 31.6 (31.6-35.5) g/dL RDW 14.7 H (11.5-14.5) % Plt Count 268 (140-400) K/mcL MPV 9.9 (9.4-12.4) fL Immature Gran % 0.3 (0-4) % Seg Neutrophils % 75.7 % Lymphocytes % 14.1 % Monocytes % 8.2 % Eosinophils % 1.2 % Basophils % 0.5 % Neutrophils # 7.6 (1.6-8.9) K/mcL Lymphocytes # 1.4 (0.6-4.6) K/mcL Monocytes # 0.8 (0.0-1.3) K/mcL Eosinophils # 0.1 (0.0-0.6) K/mcL Basophils # 0.1 (0.0-0.2) K/mcL PT 15.3 H (9.4-12.1) Seconds INR 1.4 Sodium (136-145) mEq/L Potassium (3.5-4.5) mEq/L Chloride (98-109) mEq/L Carbon Dioxide (19-29) mEq/L BUN (8-26) mg/dL Creatinine (0.72-1.25) mg/dL Est GFR ( Amer) (> 60) Est GFR (Non-Af Amer) (> 60) BUN/Creatinine Ratio (6-26) Glucose (70-99) mg/dL Calculated Osmolality (280-300) Calcium (8.6-10.8) mg/dL Total Bilirubin (0.2-1.2) mg/dL Direct Bilirubin (0.0-0.5) mg/dL Indirect Bilirubin (0.0-1.2) mg/dL AST (5-34) Units/L ALT (0-55) Units/L Alkaline Phosphatase (38-126) Units/L Troponin I (0-0.03) ng/mL B-Natriuretic Peptide 154 H (0-100) pg/mL Serum Total Protein (6.0-8.3) g/dL Albumin (3.5-5.0) g/dL Globulin (2.4-3.5) g/dL Albumin/Globulin Ratio (1.1-2.2) 10/04/17 10/04/17 Range/Units 18:32 18:32 WBC (4.3-11.1) K/mcL RBC (4.19-5.50) M/mcL Hgb (12.9-16.9) g/dL Hct (37.5-50.1) % MCV (83.0-100.0) fL MCH (28.0-33.3) pg MCHC (31.6-35.5) g/dL RDW (11.5-14.5) % Plt Count (140-400) K/mcL MPV (9.4-12.4) fL Immature Gran % (0-4) % Seg Neutrophils % % Lymphocytes % % Monocytes % % Eosinophils % % Basophils % % Neutrophils # (1.6-8.9) K/mcL Lymphocytes # (0.6-4.6) K/mcL Monocytes # (0.0-1.3) K/mcL Eosinophils # (0.0-0.6) K/mcL Basophils # (0.0-0.2) K/mcL PT (9.4-12.1) Seconds INR Sodium 140 (136-145) mEq/L Potassium 4.4 (3.5-4.5) mEq/L Chloride 106 (98-109) mEq/L Carbon Dioxide 25 (19-29) mEq/L BUN 18 (8-26) mg/dL Creatinine 1.19 (0.72-1.25) mg/dL Est GFR ( Amer) > 60 (> 60) Est GFR (Non-Af Amer) > 60 (> 60) BUN/Creatinine Ratio 15 (6-26) Glucose 153 H (70-99) mg/dL Calculated Osmolality 295 (280-300) Calcium 9.2 (8.6-10.8) mg/dL Total Bilirubin 0.4 (0.2-1.2) mg/dL Direct Bilirubin 0.2 (0.0-0.5) mg/dL Indirect Bilirubin 0.2 (0.0-1.2) mg/dL AST 19 (5-34) Units/L ALT 18 (0-55) Units/L Alkaline Phosphatase 100 (38-126) Units/L Troponin I 0.04 H* (0-0.03) ng/mL B-Natriuretic Peptide (0-100) pg/mL Serum Total Protein 7.4 (6.0-8.3) g/dL Albumin 3.2 L (3.5-5.0) g/dL Globulin 4.2 H (2.4-3.5) g/dL Albumin/Globulin Ratio 0.8 L (1.1-2.2)
[2017-10-04] MEDS ORDERED: *HR* HYDROmorphone (PF) 1 MG/ML SYRINGE IVP ONE (20:59)
[2017-10-04] MEDS ORDERED: Nitroglycerin 0.4 MG TAB.SUBL SL PRN (22:17)
[2017-10-04] MEDS ORDERED: Acetaminophen 325 MG TABLET PO PRN (22:19)
[2017-10-04] MEDS ORDERED: Naloxone 0.4 MG/ML INJ IVP PRN (22:19)
[2017-10-04] MEDS ORDERED: Ondansetron 4 MG/2 ML VIAL IVP PRN (22:19)
[2017-10-04] MEDS ORDERED: 0.9 % Sodium Chloride 1,000 ML IVC SCH ×2 (22:30→23:24)
--- NOTE | 2017-10-04 22:39 | Internal Med History&Physical ---
Date of Encounter: 10/04/17 Time of Encounter: 22:25 Assessment and Plan (1) Spontaneous pneumothorax Current visit: Yes Status: Acute Spontaneous right-sided pneumothorax - s/p right-sided chest tube placement in ED Chest x-ray - initial moderate to large right-sided pneumothorax, repeat x-ray shows near complete evacuation of right-sided pneumothorax EKG - sinus rhythm with no acute ST-T changes Troponin - 0.02, cycle troponin BNP - 154 Continue chest tube, O2 via NC, DuoNeb breathing treatment, empiric IV Rocephin Pulmonology consult for pneumothorax and chest tube Cardiac telemetry, pulse ox, labs in a.m., monitor closely (2) Atrial fibrillation Current visit: Yes Status: Chronic Chronic atrial fibrillation, rate controlled - patient had DCCV on 07/31/2016 Continue home dose of Amiodarone - patient is unsure if Amiodarone has been discontinued Patient states he is on Eliquis for anticoagulation - restart when chest tube is removed Qualifiers: Atrial fibrillation type: chronic Qualified Code(s): I48.2 - Chronic atrial fibrillation (3) COPD (chronic obstructive pulmonary disease) Current visit: Yes Status: Chronic COPD, stable - not in exacerbation Continue DuoNeb breathing treatment, Symbicort, O2 via NC, Spiriva Cardiac telemetry, pulse ox Qualifiers: COPD type: unspecified COPD Qualified Code(s): J44.9 - Chronic obstructive pulmonary disease, unspecified (4) Hypertension Current visit: No Status: Chronic Essential hypertension, controlled, monitor Continue home dose of Lisinopril Qualifiers: Hypertension type: essential hypertension Qualified Code(s): I10 - Essential (primary) hypertension (5) CAD (coronary artery disease) Current visit: No Status: Chronic Coronary artery disease status post CABG, stable Continue Aspirin, Lipitor Troponin - 0.02, cycle troponin EKG - sinus rhythm with no acute ST-T changes Echocardiogram (07/30/2016) - LVEF 50-55%, normal size and function, mild LVH, indeterminant diastolic function, normal RV size and function, severely dilated LA Qualifiers: Coronary Disease-Associated Artery/Lesion type: [place] artery [place] vs. transplanted heart: [place] heart Associated angina: without angina Qualified Code(s): I25.10 - Atherosclerotic heart disease of [place] coronary artery without angina pectoris (6) DVT prophylaxis Current visit: Yes Status: Acute Heparin subcutaneous Restart home dose of Eliquis after chest tube has been removed Internal Medicine - H&P: HPI Chief complaint: Shortness of breath, chest pain Admitted From: Emergency Dept Plans for Post Hospital Care: Home History of present illness: Mr. Johnson is a 62 year old male with PMH of CAD s/p CABG, hypertension, CHF, COPD oxygen dependent, HLD, Atrial fibrillation, ?DVT and anxiety. Patient presents to the ED with complaints of shortness of breath and chest pain. Examined in the room. Patient is awake and alert. Not in any distress. Able to provide all history. No family members at bedside. Patient states he developed shortness of breath and chest pain about 2-3 days ago. Symptoms have been gradually worsening. He states that it around 3 AM this morning, he developed sudden onset right-sided chest pain, which was worse with deep inspiration. Denies any recent injury. Patient also complains of productive cough with green colored sputum. Patient states he has not used his because her breathing treatment for shortness of breath. Pain and shortness of breath worse with exertion. No alleviating factors. Rates the pain 5/10. Describes it as dull. Not radiating. No other associated symptoms. No complaints. Denies palpitations, headache with dizziness. Denies abdominal pain or vomiting or diarrhea or fever. Initial workup in the ED revealed moderate to large right-sided pneumothorax. Patient states he has never had this problem in the past. Right-sided chest tube was placed in the ED. Repeat chest x-ray shows near complete evacuation of right-sided pneumothorax. Patient now states he feels better. He has been explained about his condition and plan of care in detail. He understood and agreed. No unanswered questions. CODE STATUS full code. Past Med Surg Social Fam HX - Past Medical History Medical history: asthma, atrial fibrillation, cardiomyopathy, CHF, COPD, coronary artery disease, hyperlipidemia, hypertension Psychiatric history: anxiety - Past Surgical History Surgical History: coronary bypass (CABG), herniorrhaphy, other - Social History Smoking Status: Former smoker Smokeless Tobacco Status: No Alcohol use: none Drug use: marijuana - Family History Mother Living Status: Hx Family Neurologic Disorders: Yes (Alzheimer's) Father Living Status: Hx Family GI Disorders: Yes (Liver disease, alcoholism) Internal Medicine - H&P: Meds Aspirin [Adult Low Dose Aspirin EC] 81 mg PO DAILY 03/23/16 [History] Atorvastatin Calcium [Lipitor] 80 mg PO DAILY 02/02/16 [History] Lisinopril [Zestril] 10 mg PO BID 02/02/16 [History] Budesonide/Formoterol 80/4.5 [Symbicort 80/4.5] 1 puff IH BID #1 [id number] [Rx] Tiotropium [Spiriva] 18 mcg IH DAILY #30 capsule 07/28/16 [Rx] HYDROcodone/Acet 10/325 mg [[place] 10-325 mg] 1 tab PO Q6HR PRN 07/30/16 [History ] Nitroglycerin [Nitrostat] 0.4 mg SL AD PRN 07/30/16 [History] Amiodarone [Cordarone] 200 mg PO DAILY 04/22/17 [History] Levalbuterol Neb [Xopenex Neb] 0.63 mg IH TID 04/22/17 [History] 3 Allergy/AdvReac Type Severity Reaction Status Date / Time No Known Allergies Allergy Verified 10/04/17 18:15 All Systems PM: A 10-system review of systems was performed and is negative for pertinent findings except as documented above in the HPI. - Constitutional Constitutional: fatigue, no fever(s), no weakness - EENT Eyes: no blurry vision - Cardiovascular Cardiovascular ROS IM: chest pain, dyspnea, dyspnea on exertion, no diaphoresis , no edema, no lightheadedness, no orthopnea, no palpitations, no syncope - Respiratory Respiratory: cough, dyspnea, dyspnea on exertion, wheezing, chest congestion, no hemoptysis - Gastrointestinal Gastrointestinal: no abdominal pain, no bloating, no diarrhea, no hematochezia, no nausea, no vomiting - Genitourinary Genitourinary ROS male: no dysuria - Musculoskeletal Musculoskeletal ROS IM: no back pain - Neurological Neurological ROS: no abnormal gait, no confusion, no dizziness, no numbness, no tingling - Constitutional Vitals: Temp Pulse Resp BP Pulse Ox 98.4 F 81 18 138/74 96 10/04/17 21:57 10/04/17 21:57 10/04/17 21:57 10/04/17 21:57 10/04/17 20:05 General appearance: Present: cooperative, A&O X 3, pleasant, no acute distress, answers questions appropriately - Head Head exam: Present: atraumatic - Eye Eye exam: Present: EOMI - ENT ENT exam: Present: mucous membranes dry - Respiratory Respiratory exam: Present: rhonchi (Mild bilateral). Absent: chest wall tenderness, rales, respiratory distress, tachypnea Additional comments: Good air entry bilaterally. Right-sided chest tube in place. - Cardiovascular Cardiovascular exam: Present: irregular rhythm, +S1, +S2 - GI/Abdominal GI/Abdominal exam: Present: soft. Absent: distended, firm, guarding, tenderness - Extremities Exam Extremities exam: Present: pedal edema (Bilateral lower leg 1+ edema), radial pulses palpable and symmetrical. Absent: calf tenderness, cyanotic - Neurological Exam Neurological exam: Present: alert, oriented X3, no focal deficits. Absent: facial droop, speech deficit Internal Med - H&P Results - Labs CBC & Chem 7: 10/04/17 18:32 10/04/17 18:32
[2017-10-04] MEDS: *HR* Morphine 2 MG/ML SYRINGE IVP PRN (22:56)
[2017-10-04] MEDS: Ipratropium/Albuterol Neb 3 ML IH SCH (22:57)
[2017-10-05] MEDS: cefTRIAXone 1,000 MG in Water for inj. (sterile) 10 ML IVP SCH (01:06)
[2017-10-05 02:01] LABS: Bilirubin,Urine Negative (Negative); Blood,Urine Trace (Negative); Clarity,Urine Clear (Clear); Color,Urine Yellow (Yellow); Glucose,Urine (UA) Normal (Normal); Ketones,Urine Negative (Negative); Leukocyte Esterase,Urine Negative (Negative); Nitrite,Urine Negative (Negative); Protein,Urine Negative (Neg-Trace); Specific Gravity,Urine 1.024 (1.010-1.025); Urobilinogen,Urine Normal (Normal)
[2017-10-05 02:03] LABS: Bacteria,Urine None Seen per hpf (None-Few); Hyaline Casts,Urine None Seen per lpf (None-Few); RBC,Urine 0-3 per hpf (0-3); Squamous Epithelial Cell,Urine Few per lpf (None-Few); WBC,Urine 0-3 per hpf (0-3)
[2017-10-05] MEDS: *HR* Morphine 2 MG/ML SYRINGE IVP PRN ×5 (03:18→21:25)
[2017-10-05] MEDS: Ipratropium/Albuterol Neb 3 ML IH SCH ×4 (04:18→21:43)
[2017-10-05 04:45] LABS: Basophils % 0.1 %; Hematocrit 29.5 % (37.5-50.1); Hemoglobin 9.2 g/dL (12.9-16.9); Immature Granulocytes % 0.5 % (0-4); Lymphocytes # 0.5 K/mcL (0.6-4.6); Lymphocytes % 3.6 %; Mean Corpuscular HGB Conc 31.2 g/dL (31.6-35.5); Mean Corpuscular Hemoglobin 27.8 pg (28.0-33.3); Mean Corpuscular Volume 89.1 fL (83.0-100.0); Mean Platelet Volume 10.7 fL (9.4-12.4); Monocytes # 0.1 K/mcL (0.0-1.3); Monocytes % 0.5 %; Neutrophils # 12.1 K/mcL (1.6-8.9); Platelet Count 277 K/mcL (140-400); Red Blood Count 3.31 M/mcL (4.19-5.50); Red Cell Distribution Width 14.8 % (11.5-14.5); Segmented Neutrophils % 95.3 %
[2017-10-05 04:55] LABS: BUN/Creatinine Ratio 20 (6-26); Blood Urea Nitrogen 18 mg/dL (8-26); Calcium 9.2 mg/dL (8.6-10.8); Carbon Dioxide 23 mEq/L (19-29); Chloride 107 mEq/L (98-109); Glucose 205 mg/dL (70-99); Magnesium 2.2 mg/dL (1.6-2.6); Osmolality,Calculated 294 (280-300); Potassium 4.4 mEq/L (3.5-4.5); Sodium 138 mEq/L (136-145); eGFR For African Americans > 60 (> 60); eGFR For Non-African Americans > 60 (> 60)
[2017-10-05] MEDS: *HR* Heparin 5,000 UNIT/ML VIAL SQ SCH ×2 (05:56→17:47)
[2017-10-05] MEDS ORDERED: *HR* HYDROcodone/Acet 5/325 mg TABLET PO ONE (06:58)
[2017-10-05] MEDS ORDERED: Tiotropium 18 MCG inhalation IH SCH (09:00)
--- NOTE | 2017-10-05 10:11 | Internal Med Progress Note ---
<RachealJustin rivera - Last Filed: 10/05/17 10:09> Date of Encounter: 10/05/17 Time of Encounter: 10:09 - Assessment and plan (1) Spontaneous pneumothorax Current Visit: Yes Status: Acute Assessment and plan: Spontaneous large-moderate sized right-sided pneumothorax - s/p chest tube placement in ED with near complete resolution of pneumothorax Continue chest tube, O2 via NC, DuoNeb breathing treatment, empiric IV Rocephin Pulmonology consult for pneumothorax and chest tube (2) Atrial fibrillation Current Visit: Yes Status: Chronic Assessment and plan: Chronic atrial fibrillation, rate controlled - patient had direct current cardioversion (DCCV) on 07/31/2016 Rate has been well controlled during this hospitalization. Continue home dose of Amiodarone Hold Eliquis - restart when chest tube is removed Qualifiers: Atrial fibrillation type: chronic Qualified Code(s): I48.2 - Chronic atrial fibrillation (3) COPD (chronic obstructive pulmonary disease) Current Visit: Yes Status: Chronic Assessment and plan: COPD, stable - not in exacerbation Continue DuoNeb breathing treatment, Symbicort, O2 via NC, Spiriva Qualifiers: COPD type: unspecified COPD Qualified Code(s): J44.9 - Chronic obstructive pulmonary disease, unspecified (4) Hypertension Current Visit: No Status: Chronic Assessment and plan: Controlled. Continue home dose of lisinopril Qualifiers: Hypertension type: essential hypertension Qualified Code(s): I10 - Essential (primary) hypertension (5) CAD (coronary artery disease) Current Visit: No Status: Chronic Assessment and plan: Coronary artery disease status post CABG, stable Continue Aspirin, Lipitor Initial Troponin 0.04. Repeat = 0.02 2. BNP = 154 EKG - sinus rhythm with no acute ST-T changes Echocardiogram (07/30/2016) - LVEF 50-55%, normal size and function, mild LVH, indeterminant diastolic function, normal RV size and function, severely dilated LA Qualifiers: Coronary Disease-Associated Artery/Lesion type: [place] artery [place] vs. transplanted heart: [place] heart Associated angina: without angina Qualified Code(s): I25.10 - Atherosclerotic heart disease of [place] coronary artery without angina pectoris (6) DVT prophylaxis Current Visit: Yes Status: Acute Assessment and plan: Heparin subcutaneous Restart home dose of Eliquis after chest tube has been removed - Subjective Interval history: Mr. Johnson presented to emergency department 10/04/17 complaining of chest pain and shortness of breath. CXR revealed moderate-large right-sided pneumothorax, chest tube was placed and repeat CXR showed near resolution of pneumothorax - Constitutional Vitals: Temp Pulse Resp BP Pulse Ox 98.2 F 76 17 127/82 93 10/05/17 08:38 10/05/17 08:38 10/05/17 08:38 10/05/17 08:38 10/05/17 08:38 General appearance: Present: cooperative, A&O X 3, pleasant, no acute distress, answers questions appropriately Internal Medicine: Result - Labs CBC & Chem 7: 10/05/17 04:22 10/05/17 04:22 Labs: Short CBC 10/05/17 Range/Units 04:22 WBC 12.7 H (4.3-11.1) K/mcL Hgb 9.2 L (12.9-16.9) g/dL Hct 29.5 L (37.5-50.1) % Plt Count 277 (140-400) K/mcL Neutrophils # 12.1 H (1.6-8.9) K/mcL BMP 10/05/17 04:22 Sodium 138 Potassium 4.4 Chloride 107 Carbon Dioxide 23 BUN 18 Creatinine 0.91 Glucose 205 H Calcium 9.2 Cardiac Enzymes 10/04/17 10/05/17 Range/Units 22:53 04:22 Troponin I 0.02 0.02 (0-0.03) ng/mL Urine 10/05/17 Range/Units 01:52 Urine Color Yellow (Yellow) Urine Clarity Clear (Clear) Urine pH 6.0 (5.0-8.0) pH Units Ur Specific [place] 1.024 (1.010-1.025) Urine Protein Negative (Neg-Trace) mg/dL Urine Glucose (UA) Normal (Normal) mg/dL - ABG Interpretation ABG results: PT/INR, D-dimer PT 15.3 Seconds (9.4-12.1) H 10/04/17 18:32 Consult Discharge Plan - Plan Referrals: Eleazar Kee, TEST HOLE DRILLER [Primary Care Provider] - <Lui Robles - Last Filed: 10/05/17 12:58> Date of Encounter: 10/05/17 - Constitutional Vitals: Temp Pulse Resp BP Pulse Ox 97.5 F L 81 15 120/66 94 10/05/17 12:45 10/05/17 12:45 10/05/17 12:45 10/05/17 12:45 10/05/17 12:45 - Head Head exam: Present: atraumatic, normocephalic - Eye Eye exam: Present: PERRL, conjuntiva pink, sclera anicteric Pupils: Present: PERRL - Neck Neck exam general surgery: Present: supple, trachea midline. Absent: lymphadenopathy - Respiratory Additional comments: Chest tube and right chest wall. Diminished breath sounds on the right. - Cardiovascular Cardiovascular exam: Present: RRR, +S1, +S2. Absent: diastolic murmur, gallop, rubs, systolic murmur Additional comments: Trace edema bilateral lower extremities - GI/Abdominal GI/Abdominal exam: Present: normal bowel sounds, soft, no peritoneal signs. Absent: distended, tenderness - Extremities Exam Extremities exam: Present: warm, radial pulses palpable and symmetrical. Absent : calf tenderness, cyanotic, pedal edema - Neurological Exam Neurological exam: Present: CN II-XII intact, oriented X3, no focal deficits. Absent: pronater drift, facial droop, speech deficit - Skin Skin exam: Present: dry, intact Internal Medicine: Result - Labs CBC & Chem 7: 10/05/17 04:22 10/05/17 04:22 Labs: Short CBC 10/05/17 Range/Units 04:22 WBC 12.7 H (4.3-11.1) K/mcL Hgb 9.2 L (12.9-16.9) g/dL Hct 29.5 L (37.5-50.1) % Plt Count 277 (140-400) K/mcL Neutrophils # 12.1 H (1.6-8.9) K/mcL BMP 10/05/17 04:22 Sodium 138 Potassium 4.4 Chloride 107 Carbon Dioxide 23 BUN 18 Creatinine 0.91 Glucose 205 H Calcium 9.2 Cardiac Enzymes 10/04/17 10/05/17 10/05/17 Range/Units 22:53 04:22 10:31 Troponin I 0.02 0.02 0.01 (0-0.03) ng/mL Urine 10/05/17 Range/Units 01:52 Urine Color Yellow (Yellow) Urine Clarity Clear (Clear) Urine pH 6.0 (5.0-8.0) pH Units Ur Specific [place] 1.024 (1.010-1.025) Urine Protein Negative (Neg-Trace) mg/dL Urine Glucose (UA) Normal (Normal) mg/dL - ABG Interpretation ABG results: PT/INR, D-dimer PT 15.3 Seconds (9.4-12.1) H 10/04/17 18:32 - Attending Attestation I apparently interviewed and examined this patient. I agree with the findings, assessment, and plan of Dr. Springer, leadership intern physician. Patient is improving. Chest x-ray looks favorable with resolving pneumothorax. Eliquis remains on hold. Patient has significant amount of pain and I did increase his [place], as well as added a scheduled bowel regimen twice daily. Physical therapy is consulted to assist with ambulation. IV fluids are hep-locked.
[2017-10-05] MEDS: *HR* HYDROcodone/Acet 5/325 mg TABLET PO PRN ×3 (10:24→18:57)
[2017-10-05] MEDS: Aspirin Enteric Coated 81 MG Tablet PO SCH (10:25)
[2017-10-05] MEDS: Budesonide/Formoterol 80/4.5 MDI IH SCH ×2 (10:47→21:43)
[2017-10-05] MEDS: *HR* Amiodarone 200 MG TABLET PO SCH (12:06)
[2017-10-05] MEDS: Sennosides/Docusate Sodium TABLET PO SCH ×2 (12:06→21:17)
--- NOTE | 2017-10-05 14:13 | Electrocardiograph Report ---
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
--- NOTE | 2017-10-05 16:19 | Pulmonology Consult Note ---
Date of Encounter: 10/05/17 Time of Encounter: 16:00 Assessment and Plan (1) Spontaneous pneumothorax Current Visit: Yes Status: Acute Patient presented with spontaneous pneumothorax and most likely secondary to his underlying COPD/emphysema. I will order CT chest without contrast for better visualization of his lung parenchyma and extent of his emphysema/COPD. I doubt if he has COPD exacerbation and his chest tube still shows evidence of air leak and not radiating to have him on water seal. I will consider cardiothoracic consultation based on the progress of his airleak as well as CT chest finding. Encourage incentive spirometry. Thank you for consultation. (2) COPD (chronic obstructive pulmonary disease) Current Visit: Yes Status: Chronic Patient is on appropriate inhalers Patient will need outpatient follow-up. Qualifiers: COPD type: unspecified COPD Qualified Code(s): J44.9 - Chronic obstructive pulmonary disease, unspecified (3) Former smoker, stopped smoking many years ago Current Visit: Yes Status: Resolved History of Present Illness Consult date: 10/05/17 Requesting physician: Jack Boykin Reason for consult: COPD, pneumothorax Chief complaint: Shortness of breath and chest pain History of present illness: This is a pleasant 62-year-old male with multiple medical problems mainly coronary artery disease status post CABG and also COPD oxygen dependent. Patient is a former smoker. Patient is not sure whether this is the first time he has pneumothorax. Patient stated this is first time he has chest tube. Patient presented to emergency room and was found to have pneumothorax and chest tube was placed. Pulmonary was consulted for management. Patient think he might be coughing more than his baseline and his symptoms was worsening shortness of breath and chest pain. He has a chest tube which is still leaking. He denies any fever or chills. He denies any palpitation. Patient denies any hemoptysis. He denies any other symptoms at this time. Past Med Surg Social Fam HX - Past Medical History Medical history: asthma, atrial fibrillation, cardiomyopathy, CHF, COPD, coronary artery disease, hyperlipidemia, hypertension Psychiatric history: anxiety - Past Surgical History Surgical History: coronary bypass (CABG), herniorrhaphy, other - Social History Smoking Status: Former smoker Smokeless Tobacco Status: No Alcohol use: none Drug use: marijuana - Family History Mother Living Status: Hx Family Neurologic Disorders: Yes (Alzheimer's) Father Living Status: Hx Family GI Disorders: Yes (Liver disease, alcoholism) Medications and Allergies Aspirin [Adult Low Dose Aspirin EC] 81 mg PO DAILY 02/02/16 [History] Atorvastatin Calcium [Lipitor] 80 mg PO DAILY 02/02/16 [History] HYDROcodone/Acet 10/325 mg [[place] 10-325 mg] 1 tab PO Q6HR PRN 07/30/16 [History ] Nitroglycerin [Nitrostat] 0.4 mg SL AD PRN 07/30/16 [History] Amiodarone [Cordarone] 200 mg PO DAILY 04/22/17 [History] Amlodipine Besylate [Amlodipine Besylate] 10 mg PO DAILY 10/05/17 [History] Apixaban [Eliquis] 5 mg PO BID 10/05/17 [History] Budesonide/Formoterol 80/4.5 [Symbicort 80/4.5] 2 puff IH BID 10/05/17 [History ] Calcium Polycarbophil [Fibercon] 625 mg PO BID PRN 10/05/17 [History] Ipratropium/Albuterol Neb [Duoneb] 3 ml IH QID 10/05/17 [History] Levalbuterol HCl [Xopenex] 0.63 mg IH Q8H 10/05/17 [History] Lisinopril [Zestril] 10 mg PO BID 10/05/17 [History] Metoprolol [Lopressor] 12.5 mg PO BID 10/05/17 [History] Tiotropium [Spiriva] 18 mcg IH DAILY 10/05/17 [History] 3 Allergy/AdvReac Type Severity Reaction Status Date / Time No Known Allergies Allergy Verified 10/05/17 09:26 All Systems: A 10-system review of systems was performed and is negative for pertinent findings except as documented above in the HPI. Physical Examination Vital Signs: Vital Signs, Last 4 Hours Temp Pulse Resp BP Pulse Ox 10/05/17 15:37 98.5 F 75 20 126/64 94 10/05/17 15:21 15 94 10/05/17 12:45 97.5 F L 81 15 120/66 94 General appearance: no acute distress, appears uncomfortable (When he moves he has discomfort in the right side) Eyes: nonicteric ENT: oropharynx moist Mallampati (class): 2 Neck: supple, no lymphadenopathy Effort: normal Inspection: hyperextended Auscultation: right: diminished breath sounds (Chest tube in place), bilateral: rhonchi Percussion: bilateral: not dull Cardiovascular: regular rate and rhythm Gastrointestinal: normoactive bowel sounds, non-distended Extremities: no cyanosis, no edema normal mental status, non-focal exam mood appropriate Results - Laboratory Findings CBC and BMP: 10/05/17 04:22 10/05/17 04:22 PT/INR, D-dimer PT 15.3 Seconds (9.4-12.1) H 10/04/17 18:32 Abnormal lab findings: Abnormal lab results WBC 12.7 K/mcL (4.3-11.1) H 10/05/17 04:22 RBC 3.31 M/mcL (4.19-5.50) L 10/05/17 04:22 Hgb 9.2 g/dL (12.9-16.9) L 10/05/17 04:22 Hct 29.5 % (37.5-50.1) L 10/05/17 04:22 MCH 27.8 pg (28.0-33.3) L 10/05/17 04:22 MCHC 31.2 g/dL (31.6-35.5) L 10/05/17 04:22 RDW 14.8 % (11.5-14.5) H 10/05/17 04:22 Neutrophils # 12.1 K/mcL (1.6-8.9) H 10/05/17 04:22 Lymphocytes # 0.5 K/mcL (0.6-4.6) L 10/05/17 04:22 PT 15.3 Seconds (9.4-12.1) H 10/04/17 18:32 Glucose 205 mg/dL (70-99) H 10/05/17 04:22 B-Natriuretic Peptide 154 pg/mL (0-100) H 10/04/17 18:32 Albumin 3.2 g/dL (3.5-5.0) L 10/04/17 18:32 Globulin 4.2 g/dL (2.4-3.5) H 10/04/17 18:32 Albumin/Globulin Ratio 0.8 (1.1-2.2) L 10/04/17 18:32 Urine Blood Trace (Negative) H 10/05/17 01:52 - Diagnostic Findings Chest x-ray: report reviewed, image reviewed - Clinical Findings Intake & Output: Intake & Output 10/05/17 10/05/17 10/05/17 07:59 15:59 23:59 Intake Total 720 / 720 Output Total 885 / 885 360 / 360 Balance -875 / -875 360 / 360 Weight 79.6 kg Consult Discharge Plan - Plan Referrals: Eleazar Kee, CHEESE TESTER [Primary Care Provider] -
[2017-10-06] MEDS: *HR* HYDROcodone/Acet 5/325 mg TABLET PO PRN ×3 (00:41→08:41)
[2017-10-06] MEDS: cefTRIAXone 1,000 MG in Water for inj. (sterile) 10 ML IVP SCH ×2 (00:41→23:15)
[2017-10-06] MEDS: *HR* Morphine 2 MG/ML SYRINGE IVP PRN ×8 (01:37→22:12)
[2017-10-06 04:16] LABS: Basophils % 0.1 %; Hematocrit 27.9 % (37.5-50.1); Hemoglobin 8.8 g/dL (12.9-16.9); Immature Granulocytes % 0.5 % (0-4); Lymphocytes # 1.3 K/mcL (0.6-4.6); Lymphocytes % 6.8 %; Mean Corpuscular HGB Conc 31.5 g/dL (31.6-35.5); Mean Corpuscular Hemoglobin 27.3 pg (28.0-33.3); Mean Corpuscular Volume 86.6 fL (83.0-100.0); Mean Platelet Volume 10.5 fL (9.4-12.4); Monocytes # 1.5 K/mcL (0.0-1.3); Neutrophils # 16.3 K/mcL (1.6-8.9); Platelet Count 286 K/mcL (140-400); Red Blood Count 3.22 M/mcL (4.19-5.50); Red Cell Distribution Width 14.6 % (11.5-14.5); Segmented Neutrophils % 84.6 %
[2017-10-06] MEDS: Ipratropium/Albuterol Neb 3 ML IH SCH ×4 (04:21→22:31)
[2017-10-06 04:34] LABS: BUN/Creatinine Ratio 26 (6-26); Blood Urea Nitrogen 22 mg/dL (8-26); Calcium 8.8 mg/dL (8.6-10.8); Carbon Dioxide 26 mEq/L (19-29); Chloride 107 mEq/L (98-109); Glucose 137 mg/dL (70-99); Osmolality,Calculated 293 (280-300); Potassium 4.4 mEq/L (3.5-4.5); Sodium 139 mEq/L (136-145); eGFR For African Americans > 60 (> 60); eGFR For Non-African Americans > 60 (> 60)
[2017-10-06] MEDS: *HR* Heparin 5,000 UNIT/ML VIAL SQ SCH ×2 (06:28→18:05)
[2017-10-06] MEDS: Sennosides/Docusate Sodium TABLET PO SCH ×2 (08:16→19:52)
[2017-10-06] MEDS: *HR* Amiodarone 200 MG TABLET PO SCH (08:16)
[2017-10-06] MEDS: Aspirin Enteric Coated 81 MG Tablet PO SCH (08:17)
[2017-10-06] MEDS: Ketorolac 30 MG/ML VIAL IVP SCH ×3 (09:19→23:16)
--- NOTE | 2017-10-06 09:59 | Pulmonology Progress Note ---
Date of Encounter: 10/06/17 Time of Encounter: 08:50 Assessment and Plan (1) Spontaneous pneumothorax Current Visit: Yes Status: Acute I have reviewed CT chest results with the patient and also I shared actual images pictures were clear with the permission from the patient and their significance of this emphysema and I feel patient would be at risk of recurrent pneumothorax for that reason consulted cardiothoracic surgery Dr. Cobos. Continue chest tube since there is still airleak. Continue incentive spirometry. Empiric antibiotic is reasonable We will continue follow-up. (2) COPD (chronic obstructive pulmonary disease) Current Visit: Yes Status: Chronic Qualifiers: COPD type: unspecified COPD Qualified Code(s): J44.9 - Chronic obstructive pulmonary disease, unspecified (3) Former smoker, stopped smoking many years ago Current Visit: Yes Status: Resolved Subjective Principal diagnosis: Spontaneous pneumothorax Interval history: Patient denies any significant changes and he had CT chest done and his last chest x-ray still shows evidence of pneumothorax Objective PUL Vital signs: Last Vital Signs Temp 98.3 F 10/06/17 07:23 Pulse 60 10/06/17 09:20 Resp 17 10/06/17 07:23 BP 125/77 10/06/17 07:23 Pulse Ox 95 10/06/17 09:20 General appearance: appears uncomfortable Eyes: nonicteric ENT: oropharynx moist Neck: supple Effort: mildly labored Auscultation: right: other (Pleural rub. Chest tube with subcutaneous emphysema right side), bilateral: rhonchi Percussion: bilateral: not dull Cardiovascular: regular rate and rhythm Gastrointestinal: normoactive bowel sounds, non-distended Extremities: no cyanosis normal mental status, non-focal exam depressed Results - Laboratory Findings CBC and BMP: 10/06/17 03:45 10/06/17 03:45 PT/INR, D-dimer PT 15.3 Seconds (9.4-12.1) H 10/04/17 18:32 Abnormal lab findings: Abnormal lab results WBC 19.3 K/mcL (4.3-11.1) H D 10/06/17 03:45 RBC 3.22 M/mcL (4.19-5.50) L 10/06/17 03:45 Hgb 8.8 g/dL (12.9-16.9) L 10/06/17 03:45 Hct 27.9 % (37.5-50.1) L 10/06/17 03:45 MCH 27.3 pg (28.0-33.3) L 10/06/17 03:45 MCHC 31.5 g/dL (31.6-35.5) L 10/06/17 03:45 RDW 14.6 % (11.5-14.5) H 10/06/17 03:45 Neutrophils # 16.3 K/mcL (1.6-8.9) H 10/06/17 03:45 Monocytes # 1.5 K/mcL (0.0-1.3) H 10/06/17 03:45 PT 15.3 Seconds (9.4-12.1) H 10/04/17 18:32 Glucose 137 mg/dL (70-99) H 10/06/17 03:45 B-Natriuretic Peptide 154 pg/mL (0-100) H 10/04/17 18:32 Albumin 3.2 g/dL (3.5-5.0) L 10/04/17 18:32 Globulin 4.2 g/dL (2.4-3.5) H 10/04/17 18:32 Albumin/Globulin Ratio 0.8 (1.1-2.2) L 10/04/17 18:32 Urine Blood Trace (Negative) H 10/05/17 01:52 - Diagnostic Findings Chest x-ray: report reviewed, image reviewed CT scan - chest: report reviewed, image reviewed - Clinical Findings Intake & Output: Intake & Output 10/05/17 10/06/17 10/06/17 23:59 07:59 15:59 Intake Total 240 / 240 220 / 220 Output Total 200 / 200 616 / 616 0 / 0 Balance 40 / 40 -606 / -606 220 / 220 Weight 80.2 kg Consult Discharge Plan - Plan Referrals: Eleazar Kee, BILLING SUPERVISOR [Primary Care Provider] -
[2017-10-06] MEDS: Budesonide/Formoterol 80/4.5 MDI IH SCH ×2 (10:13→22:31)
--- NOTE | 2017-10-06 11:00 | Internal Med Progress Note ---
<RachealJustin rivera - Last Filed: 10/06/17 10:57> Date of Encounter: 10/06/17 Time of Encounter: 08:00 - Assessment and plan (1) Spontaneous pneumothorax Current Visit: Yes Status: Acute Assessment and plan: Spontaneous large-moderate sized right-sided pneumothorax - s/p chest tube placement in ED with near complete resolution of pneumothorax. Appreciate input from pulmonology. Recommend evaluation by cardiothoracic surgery due to emphysema and increased risk of recurrent pneumothorax. Also incentive spirometry Continue chest tube, O2 via NC, DuoNeb breathing treatment, empiric IV Rocephin (2) Atrial fibrillation Current Visit: Yes Status: Chronic Assessment and plan: Chronic atrial fibrillation, rate controlled - patient had direct current cardioversion (DCCV) on 07/31/2016 Rate has been well controlled during this hospitalization. Continue home dose of Amiodarone Hold Eliquis - restart when chest tube is removed Qualifiers: Atrial fibrillation type: chronic Qualified Code(s): I48.2 - Chronic atrial fibrillation (3) COPD (chronic obstructive pulmonary disease) Current Visit: Yes Status: Chronic Assessment and plan: COPD, stable - not in exacerbation Continue DuoNeb breathing treatment, Symbicort, O2 via NC, Spiriva Qualifiers: COPD type: unspecified COPD Qualified Code(s): J44.9 - Chronic obstructive pulmonary disease, unspecified (4) Hypertension Current Visit: No Status: Chronic Assessment and plan: Controlled. Continue home dose of lisinopril Qualifiers: Hypertension type: essential hypertension Qualified Code(s): I10 - Essential (primary) hypertension (5) CAD (coronary artery disease) Current Visit: No Status: Chronic Assessment and plan: Coronary artery disease status post CABG, stable Continue Aspirin, Lipitor Initial Troponin 0.04. Repeat = 0.02 2. BNP = 154 EKG - sinus rhythm with no acute ST-T changes Echocardiogram (07/30/2016) - LVEF 50-55%, normal size and function, mild LVH, indeterminant diastolic function, normal RV size and function, severely dilated LA Qualifiers: Coronary Disease-Associated Artery/Lesion type: [place] artery [place] vs. transplanted heart: [place] heart Associated angina: without angina Qualified Code(s): I25.10 - Atherosclerotic heart disease of [place] coronary artery without angina pectoris (6) DVT prophylaxis Current Visit: Yes Status: Acute Assessment and plan: Heparin subcutaneous Restart home dose of Eliquis after chest tube has been removed - Subjective Interval history: Mr. Johnson presented to emergency department 10/04/17 complaining of chest pain and shortness of breath. CXR revealed moderate-large right-sided pneumothorax, chest tube was placed and repeat CXR showed near resolution of pneumothorax Patient seen and examined at bedside this morning. His breathing continues to be stable. He is complaining of back pain which is chronic in nature - Constitutional Vitals: Temp Pulse Resp BP Pulse Ox 98.3 F 60 17 125/77 95 10/06/17 07:23 10/06/17 09:20 10/06/17 07:23 10/06/17 07:23 10/06/17 09:20 General appearance: Present: cooperative, A&O X 3, pleasant, no acute distress, answers questions appropriately - Respiratory Respiratory exam: Present: rhonchi (Bilateral). Absent: accessory muscle use, respiratory distress - Cardiovascular Cardiovascular exam: Present: RRR. Absent: diastolic murmur, gallop, rubs, systolic murmur - GI/Abdominal GI/Abdominal exam: Present: normal bowel sounds, soft. Absent: distended, tenderness - Extremities Exam Extremities exam: Present: warm, radial pulses palpable and symmetrical. Absent : pedal edema - Neurological Exam Neurological exam: Present: alert, oriented X3 Internal Medicine: Result - Labs CBC & Chem 7: 10/06/17 03:45 10/06/17 03:45 Labs: Short CBC 10/06/17 Range/Units 03:45 WBC 19.3 H D (4.3-11.1) K/mcL Hgb 8.8 L (12.9-16.9) g/dL Hct 27.9 L (37.5-50.1) % Plt Count 286 (140-400) K/mcL Neutrophils # 16.3 H (1.6-8.9) K/mcL BMP 10/06/17 03:45 Sodium 139 Potassium 4.4 Chloride 107 Carbon Dioxide 26 BUN 22 Creatinine 0.85 Glucose 137 H Calcium 8.8 Cardiac Enzymes 10/05/17 Range/Units 10:31 Troponin I 0.01 (0-0.03) ng/mL - ABG Interpretation ABG results: PT/INR, D-dimer PT 15.3 Seconds (9.4-12.1) H 10/04/17 18:32 - Impressions Impressions Chest CT 10/05/17 16:06 IMPRESSION: 1. Small right anterior pneumothorax in spite of the presence of a right chest tube. 2. Extensive subcutaneous emphysema on the right. 3. Severe emphysema. 4. Consolidative changes in the right base and mild atelectatic changes in the left base. D/ / 10/05/2017 16:43:46 Silvia Almanza MD / nate Interpreting Provider: Silvia Almanza MD Chest X-Ray 10/06/17 04:00 IMPRESSION: Small right apical pneumothorax. Small right-sided effusion. COPD. D/ / 10/06/2017 07:53:25 Stanley Gomez MD / Elisha Watts Interpreting Provider: Stanley Gomez MD Consult Discharge Plan - Plan Referrals: Eleazar Kee, CORPORATE TUTOR [Primary Care Provider] - <Lui Robles - Last Filed: 10/06/17 16:21> Date of Encounter: 10/06/17 - Constitutional Vitals: Temp Pulse Resp BP Pulse Ox 98.4 F 56 17 123/73 94 10/06/17 15:27 10/06/17 15:31 10/06/17 15:27 10/06/17 15:27 10/06/17 15:27 Internal Medicine: Result - Labs CBC & Chem 7: 10/06/17 03:45 10/06/17 03:45 Labs: Short CBC 10/06/17 Range/Units 03:45 WBC 19.3 H D (4.3-11.1) K/mcL Hgb 8.8 L (12.9-16.9) g/dL Hct 27.9 L (37.5-50.1) % Plt Count 286 (140-400) K/mcL Neutrophils # 16.3 H (1.6-8.9) K/mcL BMP 10/06/17 03:45 Sodium 139 Potassium 4.4 Chloride 107 Carbon Dioxide 26 BUN 22 Creatinine 0.85 Glucose 137 H Calcium 8.8 - ABG Interpretation ABG results: PT/INR, D-dimer PT 15.3 Seconds (9.4-12.1) H 10/04/17 18:32 - Impressions Impressions Chest CT 10/05/17 16:06 IMPRESSION: 1. Small right anterior pneumothorax in spite of the presence of a right chest tube. 2. Extensive subcutaneous emphysema on the right. 3. Severe emphysema. 4. Consolidative changes in the right base and mild atelectatic changes in the left base. D/ / 10/05/2017 16:43:46 Silvia Almanza MD / [facility] Interpreting Provider: Silvia Almanza MD Chest X-Ray 10/06/17 04:00 IMPRESSION: Small right apical pneumothorax. Small right-sided effusion. COPD. D/ / 10/06/2017 07:53:25 Stanley Gomez MD / Elisha Watts Interpreting Provider: Stanley Gomez MD - Attending Attestation Performed an independent interview and examination of this patient. I discussed the case with Dr. Springer, medicine resident and agree with his findings, assessment and plan. My input is reflected in his note. Urinary Medicine input is also appreciated, with cardiothoracic surgery consultation. We did intensify his pain control measures, which seem to be improving. Also added incentive spirometry. Concern for developing pulmonary infection. Monitor closely.
[2017-10-06] MEDS: *HR* HYDROcodone/Acet 10/325 mg TABLET PO PRN (15:26)
[2017-10-07] MEDS: *HR* Morphine 2 MG/ML SYRINGE IVP PRN ×7 (04:39→21:59)
[2017-10-07] MEDS: Ipratropium/Albuterol Neb 3 ML IH SCH ×4 (04:52→22:38)
[2017-10-07] MEDS: Ketorolac 30 MG/ML VIAL IVP SCH ×4 (06:04→23:56)
[2017-10-07] MEDS: *HR* Heparin 5,000 UNIT/ML VIAL SQ SCH ×2 (06:04→17:46)
[2017-10-07 06:24] LABS: BUN/Creatinine Ratio 22 (6-26); Blood Urea Nitrogen 19 mg/dL (8-26); Calcium 8.8 mg/dL (8.6-10.8); Carbon Dioxide 27 mEq/L (19-29); Chloride 105 mEq/L (98-109); Glucose 92 mg/dL (70-99); Osmolality,Calculated 288 (280-300); Potassium 4.3 mEq/L (3.5-4.5); Sodium 138 mEq/L (136-145); eGFR For African Americans > 60 (> 60); eGFR For Non-African Americans > 60 (> 60)
[2017-10-07 06:25] LABS: Basophils # 0.1 K/mcL (0.0-0.2); Basophils % 0.5 %; Eosinophils # 0.4 K/mcL (0.0-0.6); Eosinophils % 2.7 %; Hematocrit 29.7 % (37.5-50.1); Hemoglobin 9.2 g/dL (12.9-16.9); Immature Granulocytes % 0.3 % (0-4); Lymphocytes # 2.1 K/mcL (0.6-4.6); Lymphocytes % 13.7 %; Mean Corpuscular Hemoglobin 27.3 pg (28.0-33.3); Mean Corpuscular Volume 88.1 fL (83.0-100.0); Mean Platelet Volume 10.5 fL (9.4-12.4); Monocytes # 1.4 K/mcL (0.0-1.3); Monocytes % 9.1 %; Neutrophils # 11.1 K/mcL (1.6-8.9); Platelet Count 312 K/mcL (140-400); Red Blood Count 3.37 M/mcL (4.19-5.50); Red Cell Distribution Width 14.9 % (11.5-14.5); Segmented Neutrophils % 73.7 %
--- NOTE | 2017-10-07 06:27 | Internal Med Progress Note ---
<RachealJustin Denton - Last Filed: 10/07/17 08:26> Date of Encounter: 10/07/17 Time of Encounter: 06:24 - Assessment and plan (1) Spontaneous pneumothorax Current Visit: Yes Status: Acute Assessment and plan: Spontaneous large-moderate sized right-sided pneumothorax - s/p chest tube placement in ED with near complete resolution of pneumothorax, repeat CXR 10/06 showed small right apical pneumothorax and small right-sided effusion. Appreciate input from pulmonology. Recommend evaluation by cardiothoracic surgery due to emphysema and increased risk of recurrent pneumothorax. Also incentive spirometry Continue chest tube, O2 via NC, DuoNeb breathing treatment, empiric IV Rocephin (2) Atrial fibrillation Current Visit: Yes Status: Chronic Assessment and plan: Chronic atrial fibrillation, rate controlled - patient had direct current cardioversion (DCCV) on 07/31/2016 Rate has been well controlled during this hospitalization. Continue home dose of Amiodarone Hold Eliquis - restart when chest tube is removed Qualifiers: Atrial fibrillation type: chronic Qualified Code(s): I48.2 - Chronic atrial fibrillation (3) COPD (chronic obstructive pulmonary disease) Current Visit: Yes Status: Chronic Assessment and plan: COPD, stable - not in exacerbation Continue DuoNeb breathing treatment, Symbicort, O2 via NC, Spiriva Qualifiers: COPD type: unspecified COPD Qualified Code(s): J44.9 - Chronic obstructive pulmonary disease, unspecified (4) Hypertension Current Visit: No Status: Chronic Assessment and plan: Controlled. Continue home dose of lisinopril Qualifiers: Hypertension type: essential hypertension Qualified Code(s): I10 - Essential (primary) hypertension (5) CAD (coronary artery disease) Current Visit: No Status: Chronic Assessment and plan: Coronary artery disease status post CABG, stable Continue Aspirin, Lipitor Initial Troponin 0.04. Repeat = 0.02 2. BNP = 154 EKG - sinus rhythm with no acute ST-T changes Echocardiogram (07/30/2016) - LVEF 50-55%, normal size and function, mild LVH, indeterminant diastolic function, normal RV size and function, severely dilated LA Qualifiers: Coronary Disease-Associated Artery/Lesion type: [place] artery [place] vs. transplanted heart: [place] heart Associated angina: without angina Qualified Code(s): I25.10 - Atherosclerotic heart disease of [place] coronary artery without angina pectoris (6) DVT prophylaxis Current Visit: Yes Status: Acute Assessment and plan: Heparin subcutaneous Restart home dose of Eliquis after chest tube has been removed - Subjective Interval history: Mr. Johnson presented to emergency department 10/04/17 complaining of chest pain and shortness of breath. CXR revealed moderate-large right-sided pneumothorax, chest tube was placed and repeat CXR showed near resolution of pneumothorax Patient seen and examined at bedside this morning. His breathing continues to be stable. He is complaining of back pain which is chronic in nature - Constitutional Vitals: Temp Pulse Resp BP Pulse Ox 97.8 F 59 18 124/78 93 10/07/17 03:14 10/07/17 03:27 10/07/17 04:53 10/07/17 03:14 10/07/17 04:53 General appearance: Present: cooperative, A&O X 3, pleasant, no acute distress, answers questions appropriately Internal Medicine: Result - Labs CBC & Chem 7: 10/07/17 05:48 10/07/17 05:48 - ABG Interpretation ABG results: PT/INR, D-dimer PT 15.3 Seconds (9.4-12.1) H 10/04/17 18:32 - Impressions Impressions Chest X-Ray 10/06/17 04:00 IMPRESSION: Small right apical pneumothorax. Small right-sided effusion. COPD. D/ / 10/06/2017 07:53:25 Stanley Gomez MD / Elisha Watts Interpreting Provider: Stanley Gomez MD Consult Discharge Plan - Plan Referrals: Eleazar Kee, STENCIL SPRAYER [Primary Care Provider] - <Lui Robles - Last Filed: 10/07/17 12:12> Date of Encounter: 10/07/17 - Constitutional Vitals: Temp Pulse Resp BP Pulse Ox 98.0 F 71 18 120/82 95 10/07/17 11:00 10/07/17 11:00 10/07/17 11:24 10/07/17 11:00 10/07/17 11:24 - Head Head exam: Present: atraumatic, normocephalic - Eye Eye exam: Present: PERRL, conjuntiva pink, sclera anicteric Pupils: Present: PERRL - Neck Neck exam general surgery: Present: supple, trachea midline. Absent: lymphadenopathy - Respiratory Additional comments: Tetanus breath sounds on the right - Cardiovascular Cardiovascular exam: Present: RRR, +S1, +S2. Absent: diastolic murmur, gallop, rubs, systolic murmur - GI/Abdominal GI/Abdominal exam: Present: normal bowel sounds, soft, no peritoneal signs. Absent: distended, tenderness - Extremities Exam Extremities exam: Present: warm, radial pulses palpable and symmetrical. Absent : calf tenderness, cyanotic, pedal edema - Neurological Exam Neurological exam: Present: CN II-XII intact, oriented X3, no focal deficits. Absent: pronater drift, facial droop, speech deficit Internal Medicine: Result - Labs CBC & Chem 7: 10/07/17 05:48 10/07/17 05:48 Labs: Short CBC 10/07/17 Range/Units 05:48 WBC 15.0 H (4.3-11.1) K/mcL Hgb 9.2 L (12.9-16.9) g/dL Hct 29.7 L (37.5-50.1) % Plt Count 312 (140-400) K/mcL Neutrophils # 11.1 H (1.6-8.9) K/mcL BMP 10/07/17 05:48 Sodium 138 Potassium 4.3 Chloride 105 Carbon Dioxide 27 BUN 19 Creatinine 0.87 Glucose 92 Calcium 8.8 - ABG Interpretation ABG results: PT/INR, D-dimer PT 15.3 Seconds (9.4-12.1) H 10/04/17 18:32 - Impressions Impressions Chest X-Ray 10/06/17 04:00 IMPRESSION: Small right apical pneumothorax. Small right-sided effusion. COPD. D/ / 10/06/2017 07:53:25 Stanley Gomez MD / Elisha Watts Interpreting Provider: Stanley Gomez MD Chest X-Ray 10/07/17 08:03 IMPRESSION: No definite residual pneumothorax. D/ / Vasyl Lara MD / Vasyl Lara MD Interpreting Provider: Vasyl Lara MD - Attending Attestation I performed an independent physical examination and interview of this patient. I discussed the case with Dr. Springer, as well as Dr. Duff in pulmonary medicine. Patient continues to improve. Hopefully chest tube to be removed soon. We are encouraging ambulation. Incentive spirometry. Monitor closely for signs of infection. Ultimately he will need consideration for lung reduction surgery per discussion with pulmonary medicine. Control has improved. Continue aggressive bowel management program as well.
[2017-10-07] MEDS: *HR* Amiodarone 200 MG TABLET PO SCH (08:48)
[2017-10-07] MEDS: Sennosides/Docusate Sodium TABLET PO SCH ×2 (08:48→21:53)
[2017-10-07] MEDS: *HR* HYDROcodone/Acet 10/325 mg TABLET PO PRN ×4 (08:48→21:59)
[2017-10-07] MEDS: Aspirin Enteric Coated 81 MG Tablet PO SCH (08:48)
--- NOTE | 2017-10-07 08:51 | Cardiothoracic Consult Note ---
Date of Encounter: 10/07/17 Time of Encounter: 08:47 Assessment and Plan (1) Acute and chronic respiratory failure with hypoxia Current Visit: No Status: Chronic The assessment and plan as outlined above was discussed with the patient and/or family members who expressed understanding and agreement. All questions were answered. This is the patient's first episode of right spontaneous pneumothorax. He had a questionable episode when seen in [place] in May, but this was never treated. It is possible that the caregiver was seeing a large bleb. CT scan on this admission reveals severe emphysema with large bullae and blebs. At this point, I do not see an air leak. This appears to be the patient's first episode. It is possible that we can remove the chest tube or place a Heimlich valve. The patient himself is not in favor of surgery and feels quite run down. However, it may become necessary if he has repeated episodes. He would need outpatient palmar a function test prior to any planned surgery. His blebs are mainly in the right upper lobe and bleb resection May 8 his breathing as it would be similar to lung volume reduction. However, he is palmar a function appears to be poor and his risk would not be insignificant. At this point, the patient does not favor surgery. - History of Present Illness Consult date: 10/07/17 History of present illness: Mr. Johnson is a 62 year old male History of present illness. The patient is a 62-year-old gentleman who underwent open heart surgery in August 2014. He used to smoke 2 packs of cigarettes per day for 40 years but quit in 2013. He presented with a right spontaneous pneumothorax that was treated with a chest tube in the emergency room on October 04. He does have severe emphysema and uses 3-1/2 L of oxygen at night and when necessary during the day. 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 Past medical history is positive for atrial fibrillation, COPD, coronary artery disease and hypertension. He has been treated for recurrent pneumonia. He has no known allergies. Social history. He lives with his . Quit smoking in 2013. Family history is positive for Alzheimer's. 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 Review of systems is notable for no angina and no recent chest pain or myocardial infarction. He does have what sounded like claudication in both legs, this is improved since he quit smoking. Past Med Surg Social Fam HX - Past Medical History Medical history: asthma, atrial fibrillation, cardiomyopathy, CHF, COPD, coronary artery disease, hyperlipidemia, hypertension Psychiatric history: anxiety - Past Surgical History Surgical History: coronary bypass (CABG), herniorrhaphy, other - Social History Smoking Status: Former smoker Smokeless Tobacco Status: No Alcohol use: none Drug use: marijuana - Family History Mother Living Status: Hx Family Neurologic Disorders: Yes (Alzheimer's) Father Living Status: Hx Family GI Disorders: Yes (Liver disease, alcoholism) Medications and Allergies Aspirin [Adult Low Dose Aspirin EC] 81 mg PO DAILY 02/02/16 [History] Atorvastatin Calcium [Lipitor] 80 mg PO DAILY 02/02/16 [History] HYDROcodone/Acet 10/325 mg [[place] 10-325 mg] 1 tab PO Q6HR PRN 07/30/16 [History ] Nitroglycerin [Nitrostat] 0.4 mg SL AD PRN 07/30/16 [History] Amiodarone [Cordarone] 200 mg PO DAILY 04/22/17 [History] Amlodipine Besylate [Amlodipine Besylate] 10 mg PO DAILY 10/05/17 [History] Apixaban [Eliquis] 5 mg PO BID 10/05/17 [History] Budesonide/Formoterol 80/4.5 [Symbicort 80/4.5] 2 puff IH BID 10/05/17 [History ] Calcium Polycarbophil [Fibercon] 625 mg PO BID PRN 10/05/17 [History] Ipratropium/Albuterol Neb [Duoneb] 3 ml IH QID 10/05/17 [History] Levalbuterol HCl [Xopenex] 0.63 mg IH Q8H 10/05/17 [History] Lisinopril [Zestril] 10 mg PO BID 10/05/17 [History] Metoprolol [Lopressor] 12.5 mg PO BID 10/05/17 [History] Tiotropium [Spiriva] 18 mcg IH DAILY 10/05/17 [History] 3 Allergy/AdvReac Type Severity Reaction Status Date / Time No Known Allergies Allergy Verified 10/05/17 09:26 All Systems Review: A 10-system review of systems was performed and is negative for pertinent findings except as documented above in the HPI. Physical Examination Vital Signs, Last 4 Hours Temp Pulse Resp BP Pulse Ox 10/07/17 08:17 98.0 F 66 18 138/97 96 10/07/17 04:53 18 93 Pupils are equal, round and reactive to light and accommodation. No oral lesions. Neck is supple. Trachea in the midline. No thyromegaly or carotid bruits. Lungs are clear to percussion and auscultation. There is subcutaneous emphysema over the right chest wall. Heart is in an irregular rate and rhythm. No murmurs, gallops or rubs. Abdomen is benign. No tenderness, rebound or guarding. The patient has a well-healed sternotomy scar and the sternum is stable. Extremities without edema. Cranial nerves, motor and sensory intact. Chest x-ray done yesterday reveals a small right apical pneumothorax. The chest tube has minimal drainage and I do not see an air leak this morning. Results 10/07/17 05:48 10/07/17 05:48 Lab Results, Last 24 hours 10/07/17 10/07/17 05:48 05:48 WBC 15.0 H Hgb 9.2 L Hct 29.7 L Plt Count 312 Sodium 138 Potassium 4.3 Chloride 105 Carbon Dioxide 27 BUN 19 Creatinine 0.87 Glucose 92 Calcium 8.8 Consult Discharge Plan - Plan Referrals: Eleazar Kee CNP [Primary Care Provider] -
--- NOTE | 2017-10-07 09:18 | Pulmonology Progress Note ---
Date of Encounter: 10/07/17 Time of Encounter: 08:45 Assessment and Plan (1) Spontaneous pneumothorax Current Visit: Yes Status: Acute I have reviewed CT chest results with the patient and also I shared actual images pictures were clear with the permission from the patient and their significance of this emphysema and I feel patient would be at risk of recurrent pneumothorax for that reason consulted cardiothoracic surgery Dr. Cobos. Continue chest tube since there is still airleak. Continue incentive spirometry. Empiric antibiotic is reasonable We will continue follow-up. 10/07 patient was seen with Dr. Cobos and please refer to his note for the recommendations. I have suggested if chest tube is removed. He will need pulmonary function tests as outpatient and he could be a good candidate for lung volume reduction surgery since his emphysema predominantly upper lobe and that way he will be at lower risk of recurrent spontaneous pneumothorax in the future which could be serious and that happen. I answered all patient's questions. (2) COPD (chronic obstructive pulmonary disease) Current Visit: Yes Status: Chronic Continue bronchodilators. And empiric antibiotics. Qualifiers: COPD type: unspecified COPD Qualified Code(s): J44.9 - Chronic obstructive pulmonary disease, unspecified (3) Former smoker, stopped smoking many years ago Current Visit: Yes Status: Resolved Subjective Principal diagnosis: Spontaneous pneumothorax Interval history: Clinically there is no significant changes and there is no air leak. Objective PUL Vital signs: Last Vital Signs Temp 98.0 F 10/07/17 08:17 Pulse 66 10/07/17 08:17 Resp 18 10/07/17 08:17 BP 138/97 10/07/17 08:17 Pulse Ox 96 10/07/17 08:17 General appearance: no acute distress Eyes: nonicteric ENT: oropharynx moist Neck: supple Effort: normal Auscultation: right: rhonchi, other (Chest tube in the right side with subcutaneous emphysema), bilateral: diminished breath sounds Percussion: bilateral: not dull Cardiovascular: regular rate and rhythm Gastrointestinal: normoactive bowel sounds, non-distended Extremities: no cyanosis normal mental status, non-focal exam mood appropriate Results - Laboratory Findings CBC and BMP: 10/07/17 05:48 10/07/17 05:48 PT/INR, D-dimer PT 15.3 Seconds (9.4-12.1) H 10/04/17 18:32 Abnormal lab findings: Abnormal lab results WBC 15.0 K/mcL (4.3-11.1) H 10/07/17 05:48 RBC 3.37 M/mcL (4.19-5.50) L 10/07/17 05:48 Hgb 9.2 g/dL (12.9-16.9) L 10/07/17 05:48 Hct 29.7 % (37.5-50.1) L 10/07/17 05:48 MCH 27.3 pg (28.0-33.3) L 10/07/17 05:48 MCHC 31.0 g/dL (31.6-35.5) L 10/07/17 05:48 RDW 14.9 % (11.5-14.5) H 10/07/17 05:48 Neutrophils # 11.1 K/mcL (1.6-8.9) H 10/07/17 05:48 Monocytes # 1.4 K/mcL (0.0-1.3) H 10/07/17 05:48 PT 15.3 Seconds (9.4-12.1) H 10/04/17 18:32 B-Natriuretic Peptide 154 pg/mL (0-100) H 10/04/17 18:32 Albumin 3.2 g/dL (3.5-5.0) L 10/04/17 18:32 Globulin 4.2 g/dL (2.4-3.5) H 10/04/17 18:32 Albumin/Globulin Ratio 0.8 (1.1-2.2) L 10/04/17 18:32 Urine Blood Trace (Negative) H 10/05/17 01:52 - Clinical Findings Intake & Output: Intake & Output 10/06/17 10/07/17 10/07/17 23:59 07:59 15:59 Intake Total 490 / 490 Output Total 650 / 650 Balance 475 / 475 -650 / -650 Weight 78.2 kg Consult Discharge Plan - Plan Referrals: Eleazar Kee, WHITEWASHER [Primary Care Provider] -
[2017-10-07] MEDS: MOM Conc 10 ML UD.LIQ PO PRN (10:09)
[2017-10-07] MEDS: Budesonide/Formoterol 80/4.5 MDI IH SCH ×2 (11:24→22:38)
[2017-10-07] MEDS: Bisacodyl 10 MG RECTAL SUPPOSITORY RC SCH (16:10)
[2017-10-07] MEDS: cefTRIAXone 1,000 MG in Water for inj. (sterile) 10 ML IVP SCH (23:57)
[2017-10-08] MEDS: *HR* Morphine 2 MG/ML SYRINGE IVP PRN ×5 (00:50→20:28)
[2017-10-08 04:12] LABS: Basophils # 0.1 K/mcL (0.0-0.2); Basophils % 0.6 %; Eosinophils # 0.7 K/mcL (0.0-0.6); Eosinophils % 6.6 %; Hematocrit 28.5 % (37.5-50.1); Hemoglobin 8.8 g/dL (12.9-16.9); Immature Granulocytes % 0.2 % (0-4); Lymphocytes # 2.2 K/mcL (0.6-4.6); Lymphocytes % 22.3 %; Mean Corpuscular HGB Conc 30.9 g/dL (31.6-35.5); Mean Corpuscular Hemoglobin 27.3 pg (28.0-33.3); Mean Corpuscular Volume 88.5 fL (83.0-100.0); Mean Platelet Volume 10.5 fL (9.4-12.4); Monocytes # 1.1 K/mcL (0.0-1.3); Monocytes % 10.9 %; Platelet Count 271 K/mcL (140-400); Red Blood Count 3.22 M/mcL (4.19-5.50); Red Cell Distribution Width 14.7 % (11.5-14.5); Segmented Neutrophils % 59.4 %
[2017-10-08] MEDS: Ipratropium/Albuterol Neb 3 ML IH SCH ×4 (04:13→22:12)
[2017-10-08 04:22] LABS: BUN/Creatinine Ratio 25 (6-26); Calcium 8.6 mg/dL (8.6-10.8); Carbon Dioxide 26 mEq/L (19-29); Chloride 105 mEq/L (98-109); Glucose 83 mg/dL (70-99); Osmolality,Calculated 291 (280-300); Potassium 4.4 mEq/L (3.5-4.5); Sodium 138 mEq/L (136-145); eGFR For African Americans > 60 (> 60); eGFR For Non-African Americans > 60 (> 60)
[2017-10-08 04:32] LABS: Blood Urea Nitrogen 30 mg/dL (8-26)
[2017-10-08] MEDS: Ketorolac 30 MG/ML VIAL IVP SCH ×2 (06:25→11:21)
[2017-10-08] MEDS: *HR* Heparin 5,000 UNIT/ML VIAL SQ SCH ×2 (06:26→17:26)
[2017-10-08] MEDS: *HR* HYDROcodone/Acet 10/325 mg TABLET PO PRN ×3 (07:58→17:26)
[2017-10-08] MEDS: Sennosides/Docusate Sodium TABLET PO SCH ×2 (07:58→20:38)
[2017-10-08] MEDS: Aspirin Enteric Coated 81 MG Tablet PO SCH (07:58)
[2017-10-08] MEDS: *HR* Amiodarone 200 MG TABLET PO SCH (07:58)
[2017-10-08] MEDS: Bisacodyl 10 MG RECTAL SUPPOSITORY RC SCH (07:58)
--- NOTE | 2017-10-08 08:04 | Cardiothoracic Progress Note ---
Date of Encounter: 10/08/17 Time of Encounter: 07:45 - Assessment and plan (1) Spontaneous pneumothorax Current Visit: Yes Status: Acute The right spontaneous pneumothorax is resolving. Currently, the chest tubes on suction and there is no air leak. The chest tube were placed to waterseal. If the chest x-ray shows the same or improved right pneumothorax tomorrow, the chest tube will be removed. The will have outpatient PFTs and then will meet with Dr. Cobos in the office to discuss possible right thoracotomy and lung volume reduction surgery. The assessment and plan as outlined above was discussed with the patient and/or family members who expressed understanding and agreement. All questions were answered. - Subjective Interval history: The patient remained hemodynamically stable overnight. He has no respiratory complaints. Vital Signs, Last 4 Hours Resp Pulse Ox 10/08/17 04:15 16 93 Oxgyen Flow Rate Oxygen Flow Rate (LPM) 4 Weight 10/06/17 10/07/17 10/08/17 23:59 23:59 23:59 Weight 80.2 kg 78.2 kg - Physical Examination General: Conversant, No Apparent Distress Neck: No JVD, Normal carotid pulses Cardiac: Reg Rate and Rhythm, Normal S1 and S2, No Murmur Incision: No signs of infection, Dry/intact dressing Chest tubes: Minimal drainage, Other (No air leak.) Lungs: Normal Breath Sounds, No Wheeze, Rales, Rhonchi Neuro: Alert and responsive, No focal deficits noted Vascular: Normal capillary refill Skin: Other (Small amount of right chest wall crepitus) Musculoskeletal: No Chest Wall Tenderness Extremities: No Clubbing, No Cyanosis, No Edema - Labs 10/08/17 03:33 10/08/17 03:33 Lab Results, Last 24 hours 10/08/17 10/08/17 03:33 03:33 WBC 10.0 Hgb 8.8 L Hct 28.5 L Plt Count 271 Sodium 138 Potassium 4.4 Chloride 105 Carbon Dioxide 26 BUN 30 H D Creatinine 1.22 Glucose 83 Calcium 8.6 - Imaging Chest Xray: image reviewed (Small right apical pneumothorax, unchanged.) Consult Discharge Plan - Plan Referrals: Eleazar Kee, FIELD TECHNICAL SUPPORT CONSULTANT [Primary Care Provider] -
--- NOTE | 2017-10-08 08:52 | Internal Med Progress Note ---
<RachealJustin rivera Denton - Last Filed: 10/08/17 08:49> Date of Encounter: 10/08/17 Time of Encounter: 08:50 - Assessment and plan (1) Spontaneous pneumothorax Current Visit: Yes Status: Acute Assessment and plan: Spontaneous large-moderate sized right-sided pneumothorax - s/p chest tube placement in ED with near complete resolution of pneumothorax, repeat CXRs show stable chest tube and persistent small right apical pneumothorax Appreciate input from pulmonology. Recommend incentive spirometryevaluation and evaluation by cardiothoracic surgery due to emphysema and increased risk of recurrent pneumothorax CT surgery following, plan is if CXR tomorrow stable, will remove chest tube and follow up as outpatient Continue chest tube, O2 via NC, DuoNeb, Symbicort, empiric IV Rocephin (2) Atrial fibrillation Current Visit: Yes Status: Chronic Assessment and plan: Chronic atrial fibrillation, rate controlled - patient had direct current cardioversion (DCCV) on 07/31/2016 Rate has been well controlled during this hospitalization. Continue home dose of Amiodarone Hold Eliquis - restart when chest tube is removed Qualifiers: Atrial fibrillation type: chronic Qualified Code(s): I48.2 - Chronic atrial fibrillation (3) COPD (chronic obstructive pulmonary disease) Current Visit: Yes Status: Chronic Assessment and plan: Stable - not in exacerbation Continue DuoNeb breathing treatment, Symbicort, O2 via NC Qualifiers: COPD type: unspecified COPD Qualified Code(s): J44.9 - Chronic obstructive pulmonary disease, unspecified (4) Hypertension Current Visit: No Status: Chronic Assessment and plan: Controlled. Continue home dose of lisinopril Qualifiers: Hypertension type: essential hypertension Qualified Code(s): I10 - Essential (primary) hypertension (5) CAD (coronary artery disease) Current Visit: No Status: Chronic Assessment and plan: Coronary artery disease status post CABG, stable Continue Aspirin, Lipitor Initial Troponin 0.04. Repeat = 0.02 2. BNP = 154 EKG - sinus rhythm with no acute ST-T changes Echocardiogram (07/30/2016) - LVEF 50-55%, normal size and function, mild LVH, indeterminant diastolic function, normal RV size and function, severely dilated LA Qualifiers: Coronary Disease-Associated Artery/Lesion type: [place] artery [place] vs. transplanted heart: [place] heart Associated angina: without angina Qualified Code(s): I25.10 - Atherosclerotic heart disease of [place] coronary artery without angina pectoris (6) DVT prophylaxis Current Visit: Yes Status: Acute Assessment and plan: Heparin subcutaneous - Subjective Interval history: Mr. Johnson presented to emergency department 10/04/17 complaining of chest pain and shortness of breath. CXR revealed moderate-large right-sided pneumothorax Patient seen and examined at bedside this morning. His breathing continues to be stable. He is complaining of back pain which is chronic in nature - Constitutional Vitals: Temp Pulse Resp BP Pulse Ox 98.3 F 63 17 124/80 94 10/08/17 07:56 10/08/17 08:14 10/08/17 07:56 10/08/17 07:56 10/08/17 08:14 General appearance: Present: cooperative, A&O X 3, pleasant, no acute distress, answers questions appropriately - Respiratory Respiratory exam: Present: CTAB. Absent: accessory muscle use, rales, rhonchi, wheezes - Cardiovascular Cardiovascular exam: Present: RRR, +S1, +S2. Absent: diastolic murmur, gallop, rubs, systolic murmur - GI/Abdominal GI/Abdominal exam: Present: normal bowel sounds, soft, no peritoneal signs. Absent: distended, tenderness - Extremities Exam Extremities exam: Present: warm. Absent: cyanotic, pedal edema - Neurological Exam Neurological exam: Present: alert, oriented X3, no focal deficits - Skin Skin exam: Present: dry, intact Internal Medicine: Result - Labs CBC & Chem 7: 10/08/17 03:33 10/08/17 03:33 Labs: Short CBC 10/08/17 Range/Units 03:33 WBC 10.0 (4.3-11.1) K/mcL Hgb 8.8 L (12.9-16.9) g/dL Hct 28.5 L (37.5-50.1) % Plt Count 271 (140-400) K/mcL Neutrophils # 6.0 (1.6-8.9) K/mcL BMP 10/08/17 03:33 Sodium 138 Potassium 4.4 Chloride 105 Carbon Dioxide 26 BUN 30 H D Creatinine 1.22 Glucose 83 Calcium 8.6 - ABG Interpretation ABG results: PT/INR, D-dimer PT 15.3 Seconds (9.4-12.1) H 10/04/17 18:32 - Impressions Impressions Chest X-Ray 10/07/17 08:03 IMPRESSION: No definite residual pneumothorax. D/ / Vasyl Lara MD / Vasyl Lara MD Interpreting Provider: Vasyl Lara MD Chest X-Ray 10/08/17 00:01 IMPRESSION: 1. Stable right chest tube. Small right apical pneumothorax. D/ / Alban Lucero MD / Alban Lucero MD Interpreting Provider: Alban Lucero MD Consult Discharge Plan - Plan Referrals: Eleazar Kee CLIENT PORTFOLIO MANAGER [Primary Care Provider] - (SENT WEB REQUEST ON 10-08-17 @ [id number]) <Thomas Echevarria H - Last Filed: 10/08/17 11:58> Date of Encounter: 10/08/17 - Constitutional Vitals: Temp Pulse Resp BP Pulse Ox 98.0 F 60 18 130/73 91 10/08/17 11:31 10/08/17 11:31 10/08/17 11:31 10/08/17 11:31 10/08/17 11:31 Internal Medicine: Result - Labs CBC & Chem 7: 10/08/17 03:33 10/08/17 03:33 Labs: Short CBC 10/08/17 Range/Units 03:33 WBC 10.0 (4.3-11.1) K/mcL Hgb 8.8 L (12.9-16.9) g/dL Hct 28.5 L (37.5-50.1) % Plt Count 271 (140-400) K/mcL Neutrophils # 6.0 (1.6-8.9) K/mcL BMP 10/08/17 03:33 Sodium 138 Potassium 4.4 Chloride 105 Carbon Dioxide 26 BUN 30 H D Creatinine 1.22 Glucose 83 Calcium 8.6 - ABG Interpretation ABG results: PT/INR, D-dimer PT 15.3 Seconds (9.4-12.1) H 10/04/17 18:32 - Impressions Impressions Chest X-Ray 10/08/17 00:01 IMPRESSION: 1. Stable right chest tube. Small right apical pneumothorax. D/ / Alban Lucero MD / Alban Lucero MD Interpreting Provider: Alban Lucero MD - Attending Attestation Discontinue ceftriaxone, no signs of infection Cardiothoracic surgery to consider removing chest tube in the morning if stable May follow up as an outpatient. Chronic back pain secondary to a disc protrusion, patient has refused surgery in the past, rejected the possibility to be started on either Lyrica or gabapentin for chronic pain. Constipation likely related to narcotics/opioids, start lactulose I examined this patient and my medical decision-making was reviewed with the Resident Physician. I agree with the documented findings, disposition and treatment plan as described except to the extent set forth below.
--- NOTE | 2017-10-08 09:36 | Electrocardiograph Report ---
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
[2017-10-08] MEDS: Budesonide/Formoterol 80/4.5 MDI IH SCH ×2 (11:04→22:12)
--- NOTE | 2017-10-08 11:55 | Pulmonology Progress Note ---
Date of Encounter: 10/08/17 Time of Encounter: 11:30 Assessment and Plan (1) Spontaneous pneumothorax Current Visit: Yes Status: Acute Patient has severe emphysematous bullous disease , this is his first pneumothorax evaluated by cardiothoracic surgeon wanted to evaluate his Pulmonary function test at baseline as an outpatient and then proceed with thoracotomy patient has not made up his mind yet counseled he would benefit from bullectomy which reduces the future risk of spontaneous pneumothorax before surgery his baseline pulmonary function has to be evaluated . Patient doesnt have air leak according Dr. Blackwell recommendation , if the small apical PTX is the same or better , the chest tube will be removed tomorrow . (2) COPD (chronic obstructive pulmonary disease) Current Visit: Yes Status: Chronic To continue with current regimen of bronchodilators to continue antibiotics for now , will need to followed up as an outpatient . To continue the current bronchodilator regimen when he goes home will optimize when we see him outpatient . Qualifiers: COPD type: emphysema Qualified Code(s): J43.2 - Centrilobular emphysema Subjective Principal diagnosis: Spontaneous pneumothorax Interval history: Patient says he is feeling lot better , there is not air leak in the chest tube drainage no other acute issues overnight Objective PUL Vital signs: Last Vital Signs Temp 98.0 F 10/08/17 11:31 Pulse 60 10/08/17 11:31 Resp 18 10/08/17 11:31 BP 130/73 10/08/17 11:31 Pulse Ox 91 10/08/17 11:31 Auscultation: right: diminished breath sounds, bilateral: clear Results - Laboratory Findings CBC and BMP: 10/08/17 03:33 10/08/17 03:33 PT/INR, D-dimer PT 15.3 Seconds (9.4-12.1) H 10/04/17 18:32 Abnormal lab findings: Abnormal lab results RBC 3.22 M/mcL (4.19-5.50) L 10/08/17 03:33 Hgb 8.8 g/dL (12.9-16.9) L 10/08/17 03:33 Hct 28.5 % (37.5-50.1) L 10/08/17 03:33 MCH 27.3 pg (28.0-33.3) L 10/08/17 03:33 MCHC 30.9 g/dL (31.6-35.5) L 10/08/17 03:33 RDW 14.7 % (11.5-14.5) H 10/08/17 03:33 Eosinophils # 0.7 K/mcL (0.0-0.6) H 10/08/17 03:33 PT 15.3 Seconds (9.4-12.1) H 10/04/17 18:32 BUN 30 mg/dL (8-26) H D 10/08/17 03:33 B-Natriuretic Peptide 154 pg/mL (0-100) H 10/04/17 18:32 Albumin 3.2 g/dL (3.5-5.0) L 10/04/17 18:32 Globulin 4.2 g/dL (2.4-3.5) H 10/04/17 18:32 Albumin/Globulin Ratio 0.8 (1.1-2.2) L 10/04/17 18:32 Urine Blood Trace (Negative) H 10/05/17 01:52 - Clinical Findings Intake & Output: Intake & Output 10/07/17 10/08/17 10/08/17 23:59 07:59 15:59 Intake Total 240 / 240 120 / 120 Output Total 210 / 210 Balance 230 / 230 - / Consult Discharge Plan - Plan Referrals: Eleazar Kee, [facility] [Primary Care Provider] - 10/15/17 11:00 am ()
[2017-10-08] MEDS: Lactulose Oral Soln 20 GM/30 ML UDC PO SCH (12:46)
[2017-10-08] MEDS: Ketorolac 30 MG/ML VIAL IVP PRN (18:55)
[2017-10-08] MEDS ORDERED: Lactulose Oral Soln 20 GM/30 ML UDC PO ONE (19:32)
[2017-10-09] MEDS: *HR* HYDROcodone/Acet 10/325 mg TABLET PO PRN ×4 (01:52→19:14)
[2017-10-09] MEDS: Ipratropium/Albuterol Neb 3 ML IH SCH ×4 (03:56→22:00)
[2017-10-09] MEDS: Ketorolac 30 MG/ML VIAL IVP PRN (03:56)
[2017-10-09] MEDS: *HR* Heparin 5,000 UNIT/ML VIAL SQ SCH ×2 (06:18→18:16)
[2017-10-09] MEDS: Lactulose Oral Soln 20 GM/30 ML UDC PO SCH (07:44)
[2017-10-09] MEDS: Aspirin Enteric Coated 81 MG Tablet PO SCH (07:44)
[2017-10-09] MEDS: Sennosides/Docusate Sodium TABLET PO SCH ×2 (07:44→21:57)
[2017-10-09] MEDS: *HR* Amiodarone 200 MG TABLET PO SCH (07:44)
[2017-10-09 08:32] LABS: Basophils % 0.4 %; Eosinophils # 0.6 K/mcL (0.0-0.6); Eosinophils % 4.9 %; Hematocrit 31.9 % (37.5-50.1); Hemoglobin 9.9 g/dL (12.9-16.9); Immature Granulocytes % 0.3 % (0-4); Lymphocytes # 1.7 K/mcL (0.6-4.6); Lymphocytes % 15.2 %; Mean Corpuscular Volume 87.2 fL (83.0-100.0); Mean Platelet Volume 10.4 fL (9.4-12.4); Neutrophils # 7.8 K/mcL (1.6-8.9); Platelet Count 303 K/mcL (140-400); Red Blood Count 3.66 M/mcL (4.19-5.50); Red Cell Distribution Width 14.7 % (11.5-14.5); Segmented Neutrophils % 70.2 %
[2017-10-09 08:50] LABS: BUN/Creatinine Ratio 24 (6-26); Blood Urea Nitrogen 23 mg/dL (8-26); Calcium 9.1 mg/dL (8.6-10.8); Carbon Dioxide 27 mEq/L (19-29); Chloride 105 mEq/L (98-109); Glucose 89 mg/dL (70-99); Osmolality,Calculated 293 (280-300); Potassium 4.6 mEq/L (3.5-4.5); Sodium 140 mEq/L (136-145); eGFR For African Americans > 60 (> 60); eGFR For Non-African Americans > 60 (> 60)
--- NOTE | 2017-10-09 10:11 | Cardiothoracic Progress Note ---
Date of Encounter: 10/09/17 Time of Encounter: 10:09 - Assessment and plan (1) Spontaneous pneumothorax Current Visit: Yes Status: Acute The right spontaneous pneumothorax is resolving. Currently, the chest has no air leak on water seal. The chest tube is removed the patient should be monitored in the hospital today and a chest x-ray repeated in the morning. The patient has no respiratory complaints and the chest x-ray is stable, he may be discharged home. He will have outpatient PFTs and then will meet with Dr. Cobos in the office to discuss possible right thoracotomy and lung volume reduction surgery. The assessment and plan as outlined above was discussed with the patient and/or family members who expressed understanding and agreement. All questions were answered. - Subjective Interval history: The patient remained hemodynamically stable overnight. He has no respiratory complaints. Vital Signs, Last 4 Hours Temp Pulse Resp BP Pulse Ox 10/09/17 09:50 93 10/09/17 07:44 97.6 F 67 16 135/82 97 10/09/17 07:40 76 [place] Flow Rate Oxygen Flow Rate (LPM) 2 Clinical Data, last 8 Hours Output, Chest Tube Drainage 0 Amount [Right Lateral Chest #1 ] Output, Chest Tube Drainage 0 Amount [Right Lateral Chest #1 ] Output, Urine Amount 0 Output, Urine Amount 500 Weight 10/07/17 10/08/17 10/09/17 23:59 23:59 23:59 Weight 78.2 kg 90.1 kg - Physical Examination General: Conversant, No Apparent Distress Neck: No JVD, Normal carotid pulses Cardiac: Reg Rate and Rhythm, Normal S1 and S2, No Murmur Incision: No signs of infection, Dry/intact dressing Chest tubes: Minimal drainage, Other (No air leak.) Lungs: Normal Breath Sounds, No Wheeze, Rales, Rhonchi Neuro: Alert and responsive, No focal deficits noted Vascular: Normal capillary refill Extremities: No Clubbing, No Cyanosis, No Edema - Labs 10/09/17 07:57 10/09/17 07:57 Lab Results, Last 24 hours 10/09/17 10/09/17 07:57 07:57 WBC 11.1 Hgb 9.9 L Hct 31.9 L Plt Count 303 Sodium 140 Potassium 4.6 H Chloride 105 Carbon Dioxide 27 BUN 23 Creatinine 0.94 Glucose 89 Calcium 9.1 - Imaging Chest Xray: image reviewed (No pneumothorax. Increased right chest wall subcutaneous emphysema.) Consult Discharge Plan - Plan Referrals: Eleazar Kee CNP [Primary Care Provider] - 10/15/17 11:00 am ()
[2017-10-09] MEDS: Budesonide/Formoterol 80/4.5 MDI IH SCH ×2 (10:23→22:00)
--- NOTE | 2017-10-09 11:29 | Internal Med Progress Note ---
<Patrice Monte - Last Filed: 10/09/17 11:40> Date of Encounter: 10/09/17 Time of Encounter: 11:24 - Assessment and plan (1) Spontaneous pneumothorax Current Visit: Yes Status: Acute Assessment and plan: Mr. Johnson 62-year-old male admitted on 10/04/2017 after presenting with acute onset shortness of breath found to have a pneumothorax receiving chest tube in the right chest in the emergency department. Since then he has been evaluated by cardiothoracic surgery and pulmonology. Patient has severe emphysematous bullous disease resulting his first pneumothorax. He has been evaluated by cardiothoracic surgeon Dr. Cobos has been recommended for pulmonary function testing to have a baseline in the outpatient setting post discharge and prior to any thoracotomy/bullectomy procedure. Patient's chest tube was removed 10/09/2017, no air leak or water seal problems prior to removal. Per cardiothoracic surgery recommended monitoring overnight with chest x-ray in the morning, PFTs in the outpatient setting prior to follow-up with cardiothoracic surgery for possible right thoracotomy and lung volume reduction surgery. Plan: - Monitor symptoms overnight status post chest tube removal - Repeat chest x-ray in the morning - Schedule outpatient PFT - Schedule follow-up with pulmonology in 2 weeks - Follow up with cardiothoracic surgery post PFT (2) COPD (chronic obstructive pulmonary disease) Current Visit: Yes Status: Chronic Assessment and plan: Stable - not in exacerbation Continue DuoNeb breathing treatment, Symbicort, O2 via NC Qualifiers: COPD type: emphysema Qualified Code(s): J43.9 - Emphysema, unspecified (3) Hypertension Current Visit: No Status: Chronic Assessment and plan: Controlled. Continue home dose of lisinopril Qualifiers: Hypertension type: essential hypertension Qualified Code(s): I10 - Essential (primary) hypertension (4) CAD (coronary artery disease) Current Visit: No Status: Chronic Assessment and plan: Coronary artery disease status post CABG, stable Continue Aspirin, Lipitor Initial Troponin 0.04. Repeat = 0.02 2. BNP = 154 EKG - sinus rhythm with no acute ST-T changes Echocardiogram (07/30/2016) - LVEF 50-55%, normal size and function, mild LVH, indeterminant diastolic function, normal RV size and function, severely dilated LA Qualifiers: Coronary Disease-Associated Artery/Lesion type: [place] artery [place] vs. transplanted heart: [place] heart Associated angina: without angina Qualified Code(s): I25.10 - Atherosclerotic heart disease of [place] coronary artery without angina pectoris (5) Atrial fibrillation Current Visit: Yes Status: Chronic Assessment and plan: Chronic atrial fibrillation, rate controlled Rate has been well controlled during this hospitalization. Continue home dose of Amiodarone Hold Eliquis - restart tomorrow if patient remains stable. Qualifiers: Atrial fibrillation type: chronic Qualified Code(s): I48.2 - Chronic atrial fibrillation (6) DVT prophylaxis Current Visit: Yes Status: Acute Assessment and plan: Heparin subcutaneous - Subjective Interval history: 62-year-old male seen and evaluated the patient bedside this morning. He is sitting up in the chair in no acute distress, denies any pain discomforts shortness of breath chest pain or chest pressure. He states overall he is feeling quite well he has no concerns at this time. He has been slightly constipated and is tried some oral medications for his constipation without success. He is having flatulence and tolerating oral intake. I discussed the plan for PFT outpatient follow-up with pulmonology and cardiothoracic's for which she demonstrates understanding and agreement. - Constitutional Vitals: Temp Pulse Resp BP Pulse Ox 97.7 F 68 16 128/75 92 10/09/17 11:00 10/09/17 11:00 10/09/17 11:00 10/09/17 11:00 10/09/17 11:00 General appearance: Present: cooperative, A&O X 3, pleasant, no acute distress, answers questions appropriately Exam: General: Patient alert, awake, oriented 3, interactive, in no acute distress HEENT: Normocephalic, atraumatic, pupils equal reactive to light, nasal cavity patent and open septum median position, oral mucosa moist, uvula midline, neck supple trachea midline no palpable lymphadenopathy, no thyromegaly. Chest: Symmetric bilateral correlating with respiratory effort, effort nonlabored. Cardiac: Irregularly irregular heart rate and rhythm, Radial pulses 2+ bilateral , posterior tibial and dorsal pedal pulses 2+ bilateral. Respiratory: Diffusely diminished breath sounds on inspiratory and expiratory with end expiratory crackles Abdomen: Slightly distended, nontender, positive bowel sounds, no palpable masses appreciated on examination Extremities: Symmetric bilateral, bilateral lower extremities without erythema or edema patient moving all 4 extremities spontaneously. Neurologic: No focal deficits appreciated on examination. Face symmetric, muscle strength symmetric bilateral upper and lower extremities. Internal Medicine: Result - Labs CBC & Chem 7: 10/09/17 07:57 10/09/17 07:57 Labs: Short CBC 10/09/17 Range/Units 07:57 WBC 11.1 (4.3-11.1) K/mcL Hgb 9.9 L (12.9-16.9) g/dL Hct 31.9 L (37.5-50.1) % Plt Count 303 (140-400) K/mcL Neutrophils # 7.8 (1.6-8.9) K/mcL BMP 10/09/17 07:57 Sodium 140 Potassium 4.6 H Chloride 105 Carbon Dioxide 27 BUN 23 Creatinine 0.94 Glucose 89 Calcium 9.1 - ABG Interpretation ABG results: PT/INR, D-dimer PT 15.3 Seconds (9.4-12.1) H 10/04/17 18:32 - Impressions Impressions Chest X-Ray 10/09/17 06:00 IMPRESSION: 1. The right hemithorax chest tube has been slightly pulled back with the side port partially at the level of the chest wall with increased subcutaneous emphysema. 2. Redemonstration of COPD and stable right lung base consolidation. No definite pneumothorax though on review of the prior CT thorax 10/05/2017 the pleural air was located anteriorly. D/ / 10/09/2017 08:35:53 Goran Campbell MD / [facility] Interpreting Provider: Goran Campbell MD Consult Discharge Plan - Plan Referrals: Eleazar eKe CNP [Primary Care Provider] - 10/15/17 11:00 am () Mansoor oCbos MD [Partnered Physician] - 11/01/17 1:15 pm Gabo Li MD [Partnered Physician] - 10/25/17 9:00 am <Thomas Echevarria H - Last Filed: 10/09/17 15:20> Date of Encounter: 10/09/17 - Constitutional Vitals: Temp Pulse Resp BP Pulse Ox 97.7 F 68 16 128/75 93 10/09/17 11:00 10/09/17 11:36 10/09/17 11:00 10/09/17 11:00 10/09/17 13:00 Internal Medicine: Result - Labs CBC & Chem 7: 10/09/17 07:57 10/09/17 07:57 Labs: Short CBC 10/09/17 Range/Units 07:57 WBC 11.1 (4.3-11.1) K/mcL Hgb 9.9 L (12.9-16.9) g/dL Hct 31.9 L (37.5-50.1) % Plt Count 303 (140-400) K/mcL Neutrophils # 7.8 (1.6-8.9) K/mcL BMP 10/09/17 07:57 Sodium 140 Potassium 4.6 H Chloride 105 Carbon Dioxide 27 BUN 23 Creatinine 0.94 Glucose 89 Calcium 9.1 - ABG Interpretation ABG results: PT/INR, D-dimer PT 15.3 Seconds (9.4-12.1) H 10/04/17 18:32 - Impressions Impressions Chest X-Ray 10/09/17 06:00 IMPRESSION: 1. The right hemithorax chest tube has been slightly pulled back with the side port partially at the level of the chest wall with increased subcutaneous emphysema. 2. Redemonstration of COPD and stable right lung base consolidation. No definite pneumothorax though on review of the prior CT thorax 10/05/2017 the pleural air was located anteriorly. D/ / 10/09/2017 08:35:53 Goran Campbell MD / [facility] Interpreting Provider: Goran Campbell MD - Attending Attestation CXR in am, may discharge in the morning if stable I examined this patient and my medical decision-making was reviewed with the Resident Physician. I agree with the documented findings, disposition and treatment plan as described except to the extent set forth below.
[2017-10-09] MEDS: *HR* Morphine 2 MG/ML SYRINGE IVP PRN (11:34)
[2017-10-09] MEDS ORDERED: Lactulose Oral Soln 20 GM/30 ML UDC PO ONE (14:18)
--- NOTE | 2017-10-09 15:23 | Pulmonology Progress Note ---
Date of Encounter: 10/09/17 Time of Encounter: 09:00 Assessment and Plan (1) COPD (chronic obstructive pulmonary disease) Current Visit: Yes Status: Chronic To continue with current regimen of bronchodilators to continue antibiotics for now , will need to followed up as an outpatient . To continue the current bronchodilator regimen when he goes home will optimize when we see him outpatient . Will see him in outpatient pulmonology in 4-6 weeks . Qualifiers: COPD type: emphysema Qualified Code(s): J43.2 - Centrilobular emphysema (2) Spontaneous pneumothorax Current Visit: Yes Status: Acute Patient has severe emphysematous bullous disease , this is his first pneumothorax evaluated by cardiothoracic surgeon wanted to evaluate his Pulmonary function test at baseline as an outpatient and then proceed with thoracotomy patient has not made up his mind yet counseled he would benefit from bullectomy which reduces the future risk of spontaneous pneumothorax before surgery his baseline pulmonary function has to be evaluated . Patient doesnt have air leak chest tube was removed today morning patient has some airleak around the tract Will repeat imaging tomorrow stable will be likely discharged did order outpatient PFT will see him as an outpatient in 4-6 weeks Subjective Principal diagnosis: Spontaneous pneumothorax Interval history: Patient says he is feeling lot better , there is not much air leak, Chest tube is removed feeling lot better. Objective PUL Vital signs: Last Vital Signs Temp 97.7 F 10/09/17 11:00 Pulse 68 10/09/17 11:36 Resp 16 10/09/17 11:00 BP 128/75 10/09/17 11:00 Pulse Ox 93 10/09/17 13:00 Auscultation: bilateral: clear, diminished breath sounds Results - Laboratory Findings CBC and BMP: 10/09/17 07:57 10/09/17 07:57 PT/INR, D-dimer PT 15.3 Seconds (9.4-12.1) H 10/04/17 18:32 Abnormal lab findings: Abnormal lab results RBC 3.66 M/mcL (4.19-5.50) L 10/09/17 07:57 Hgb 9.9 g/dL (12.9-16.9) L 10/09/17 07:57 Hct 31.9 % (37.5-50.1) L 10/09/17 07:57 MCH 27.0 pg (28.0-33.3) L 10/09/17 07:57 MCHC 31.0 g/dL (31.6-35.5) L 10/09/17 07:57 RDW 14.7 % (11.5-14.5) H 10/09/17 07:57 PT 15.3 Seconds (9.4-12.1) H 10/04/17 18:32 Potassium 4.6 mEq/L (3.5-4.5) H 10/09/17 07:57 B-Natriuretic Peptide 154 pg/mL (0-100) H 10/04/17 18:32 Albumin 3.2 g/dL (3.5-5.0) L 10/04/17 18:32 Globulin 4.2 g/dL (2.4-3.5) H 10/04/17 18:32 Albumin/Globulin Ratio 0.8 (1.1-2.2) L 10/04/17 18:32 Urine Blood Trace (Negative) H 10/05/17 01:52 - Clinical Findings Intake & Output: Intake & Output 10/08/17 10/09/17 10/09/17 23:59 07:59 15:59 Intake Total 100 / 100 320 / 320 Output Total 450 / 450 500 / 500 250 / 250 Balance -450 / -450 -400 / -400 70 / 70 Weight 90.1 kg 90.1 kg Consult Discharge Plan - Plan Referrals: Eleazar Kee CNP [Primary Care Provider] - 10/15/17 11:00 am () Mansoor Cobos MD [Partnered Physician] - 11/01/17 1:15 pm Gabo Li MD [Partnered Physician] - 10/25/17 9:00 am
[2017-10-10] MEDS: *HR* HYDROcodone/Acet 10/325 mg TABLET PO PRN ×3 (00:24→21:52)
[2017-10-10] MEDS: Ipratropium/Albuterol Neb 3 ML IH SCH ×4 (03:34→21:23)
[2017-10-10] MEDS: *HR* Heparin 5,000 UNIT/ML VIAL SQ SCH ×2 (05:21→18:05)
[2017-10-10] MEDS: Ketorolac 30 MG/ML VIAL IVP PRN ×2 (05:21→12:00)
[2017-10-10 05:32] LABS: Basophils # 0.1 K/mcL (0.0-0.2); Basophils % 0.4 %; Eosinophils # 0.5 K/mcL (0.0-0.6); Eosinophils % 4.4 %; Hematocrit 30.2 % (37.5-50.1); Hemoglobin 9.4 g/dL (12.9-16.9); Immature Granulocytes % 0.3 % (0-4); Lymphocytes # 1.9 K/mcL (0.6-4.6); Lymphocytes % 15.5 %; Mean Corpuscular HGB Conc 31.1 g/dL (31.6-35.5); Mean Corpuscular Hemoglobin 27.5 pg (28.0-33.3); Mean Corpuscular Volume 88.3 fL (83.0-100.0); Mean Platelet Volume 9.9 fL (9.4-12.4); Monocytes # 1.1 K/mcL (0.0-1.3); Monocytes % 8.8 %; Neutrophils # 8.5 K/mcL (1.6-8.9); Platelet Count 272 K/mcL (140-400); Red Blood Count 3.42 M/mcL (4.19-5.50); Red Cell Distribution Width 14.8 % (11.5-14.5); Segmented Neutrophils % 70.6 %
[2017-10-10 05:50] LABS: Alanine Aminotransferase 28 Units/L (0-55); Albumin 2.9 g/dL (3.5-5.0); Albumin/Globulin Ratio 0.7 (1.1-2.2); Alkaline Phosphatase 97 Units/L (38-126); Aspartate Amino Transferase 26 Units/L (5-34); BUN/Creatinine Ratio 20 (6-26); Blood Urea Nitrogen 17 mg/dL (8-26); Carbon Dioxide 26 mEq/L (19-29); Chloride 107 mEq/L (98-109); Globulin 3.9 g/dL (2.4-3.5); Glucose 89 mg/dL (70-99); Osmolality,Calculated 287 (280-300); Potassium 4.6 mEq/L (3.5-4.5); Sodium 138 mEq/L (136-145); Total Protein 6.8 g/dL (6.0-8.3); eGFR For African Americans > 60 (> 60); eGFR For Non-African Americans > 60 (> 60)
[2017-10-10 05:54] LABS: Bilirubin,Total < 0.2 mg/dL (0.2-1.2)
[2017-10-10] MEDS: Lactulose Oral Soln 20 GM/30 ML UDC PO SCH (07:30)
[2017-10-10] MEDS: Aspirin Enteric Coated 81 MG Tablet PO SCH (07:30)
[2017-10-10] MEDS: *HR* Amiodarone 200 MG TABLET PO SCH (07:31)
[2017-10-10] MEDS: Sennosides/Docusate Sodium TABLET PO SCH ×2 (07:31→21:51)
--- NOTE | 2017-10-10 09:22 | Internal Med Progress Note ---
<Patrice Monte - Last Filed: 10/10/17 09:19> Date of Encounter: 10/10/17 Time of Encounter: 09:20 - Assessment and plan (1) Spontaneous pneumothorax Current Visit: Yes Status: Acute Assessment and plan: Mr. Johnson 62-year-old male admitted on 10/04/2017 after presenting with acute onset shortness of breath found to have a pneumothorax receiving chest tube in the right chest in the emergency department. Since then he has been evaluated by cardiothoracic surgery and pulmonology. Patient has severe emphysematous bullous disease resulting his first pneumothorax. He has been evaluated by cardiothoracic surgeon Dr. Cobos has been recommended for pulmonary function testing to have a baseline in the outpatient setting post discharge and prior to any thoracotomy/bullectomy procedure. Patient's chest tube was removed 10/09/2017, no air leak or water seal problems prior to removal. Chest x-ray from [id number] 2016 demonstrates recurrence of right sided pneumothorax, evaluate by cardiothoracic surgery recommended for IR to perform pigtail catheter. PFTs in the outpatient setting prior to follow-up with cardiothoracic surgery for possible right thoracotomy and lung volume reduction surgery. Plan: - Interventional radiology consult and for pigtail catheter and right chest - Schedule outpatient PFT - Schedule follow-up with pulmonology in 2 weeks - Follow up with cardiothoracic surgery post PFT (2) COPD (chronic obstructive pulmonary disease) Current Visit: Yes Status: Chronic Assessment and plan: Stable - not in exacerbation Continue DuoNeb breathing treatment, Symbicort, O2 via NC Qualifiers: COPD type: emphysema Qualified Code(s): J43.2 - Centrilobular emphysema (3) Hypertension Current Visit: No Status: Chronic Assessment and plan: Controlled. Continue home dose of lisinopril Qualifiers: Hypertension type: essential hypertension Qualified Code(s): I10 - Essential (primary) hypertension (4) CAD (coronary artery disease) Current Visit: No Status: Chronic Assessment and plan: Coronary artery disease status post CABG, stable Continue Aspirin, Lipitor Initial Troponin 0.04. Repeat = 0.02 2. BNP = 154 EKG - sinus rhythm with no acute ST-T changes Echocardiogram (07/30/2016) - LVEF 50-55%, normal size and function, mild LVH, indeterminant diastolic function, normal RV size and function, severely dilated LA Qualifiers: Coronary Disease-Associated Artery/Lesion type: [place] artery [place] vs. transplanted heart: [place] heart Associated angina: without angina Qualified Code(s): I25.10 - Atherosclerotic heart disease of [place] coronary artery without angina pectoris (5) Atrial fibrillation Current Visit: Yes Status: Chronic Assessment and plan: Chronic atrial fibrillation, rate controlled Rate has been well controlled during this hospitalization. Continue home dose of Amiodarone Hold Eliquis, patient receiving chest tube today. Qualifiers: Atrial fibrillation type: chronic Qualified Code(s): I48.2 - Chronic atrial fibrillation (6) DVT prophylaxis Current Visit: Yes Status: Acute Assessment and plan: Heparin subcutaneous - Subjective Interval history: 62-year-old male seen and evaluated the patient bedside this morning. He is laying in bed comfortably, denies any chest pain, chest pressure discomforts. He denies any acute events or concerns overnight. After discussion regarding the recurrence of right-sided pneumothorax he visibly is unhappy but understands that he requires a chest tube again for resolution. He has no further questions or concerns. - Constitutional Vitals: Temp Pulse Resp BP Pulse Ox 98.4 F 79 17 134/86 96 10/10/17 04:13 10/10/17 04:13 10/10/17 04:13 10/10/17 04:13 10/10/17 04:13 General appearance: Present: cooperative, A&O X 3, pleasant, no acute distress, answers questions appropriately Exam: General: Patient alert, awake, oriented 3, interactive, in no acute distress HEENT: Normocephalic, atraumatic, pupils equal reactive to light, nasal cavity patent and open septum median position, oral mucosa moist, uvula midline, neck supple trachea midline no palpable lymphadenopathy, no thyromegaly. Chest: Symmetric bilateral correlating with respiratory effort, effort nonlabored. Chest tube site bandaged with three-way cover. Cardiac: Irregularly irregular heart rate and rhythm. no bruits appreciated bilateral carotids, Radial pulses 2+ bilateral, posterior tibial and dorsal pedal pulses 2+ bilateral. Respiratory: Diminished breath sounds in right apical and inferior lobe. Lung clear to auscultation on the left side. Abdomen: Soft, nontender, positive bowel sounds, no palpable masses appreciated on examination Extremities: Symmetric bilateral, bilateral lower extremities without erythema or edema Neurologic: No focal deficits appreciated on examination. Face symmetric, muscle strength symmetric bilateral upper and lower extremities. Internal Medicine: Result - Labs CBC & Chem 7: 10/10/17 05:09 10/10/17 05:09 Labs: Short CBC 10/10/17 Range/Units 05:09 WBC 12.0 H (4.3-11.1) K/mcL Hgb 9.4 L (12.9-16.9) g/dL Hct 30.2 L (37.5-50.1) % Plt Count 272 (140-400) K/mcL Neutrophils # 8.5 (1.6-8.9) K/mcL BMP 10/10/17 05:09 Sodium 138 Potassium 4.6 H Chloride 107 Carbon Dioxide 26 BUN 17 Creatinine 0.84 Glucose 89 Calcium 9.0 Liver Function 10/10/17 Range/Units 05:09 Total Bilirubin < 0.2 L (0.2-1.2) mg/dL AST 26 (5-34) Units/L ALT 28 (0-55) Units/L Alkaline Phosphatase 97 (38-126) Units/L Albumin 2.9 L (3.5-5.0) g/dL - ABG Interpretation ABG results: PT/INR, D-dimer PT 15.3 Seconds (9.4-12.1) H 10/04/17 18:32 - Impressions Impressions Chest X-Ray 10/09/17 06:00 IMPRESSION: 1. The right hemithorax chest tube has been slightly pulled back with the side port partially at the level of the chest wall with increased subcutaneous emphysema. 2. Redemonstration of COPD and stable right lung base consolidation. No definite pneumothorax though on review of the prior CT thorax 10/05/2017 the pleural air was located anteriorly. D/ / 10/09/2017 08:35:53 Goran Campbell MD / tkyer Interpreting Provider: Goran Campbell MD Chest X-Ray 10/10/17 06:00 IMPRESSION: Enlarging right-sided pneumothorax. D/ / Cordell Jeffrey MD / Cordell Jeffrey MD Interpreting Provider: Cordell Jeffrey MD Consult Discharge Plan - Plan Referrals: Eleazar Kee CNP [Primary Care Provider] - 10/15/17 11:00 am () Mansoor Cobos MD [Partnered Physician] - 11/01/17 1:15 pm Gabo Li MD [Partnered Physician] - 10/25/17 9:00 am <Thomas Echevarria H - Last Filed: 10/10/17 14:00> Date of Encounter: 10/10/17 - Constitutional Vitals: Temp Pulse Resp BP Pulse Ox 98.2 F 77 18 134/77 95 10/10/17 10:56 10/10/17 13:40 10/10/17 11:37 10/10/17 13:40 10/10/17 13:40 Internal Medicine: Result - Labs CBC & Chem 7: 10/10/17 05:09 10/10/17 05:09 Labs: Short CBC 10/10/17 Range/Units 05:09 WBC 12.0 H (4.3-11.1) K/mcL Hgb 9.4 L (12.9-16.9) g/dL Hct 30.2 L (37.5-50.1) % Plt Count 272 (140-400) K/mcL Neutrophils # 8.5 (1.6-8.9) K/mcL BMP 10/10/17 05:09 Sodium 138 Potassium 4.6 H Chloride 107 Carbon Dioxide 26 BUN 17 Creatinine 0.84 Glucose 89 Calcium 9.0 Liver Function 10/10/17 Range/Units 05:09 Total Bilirubin < 0.2 L (0.2-1.2) mg/dL AST 26 (5-34) Units/L ALT 28 (0-55) Units/L Alkaline Phosphatase 97 (38-126) Units/L Albumin 2.9 L (3.5-5.0) g/dL - ABG Interpretation ABG results: PT/INR, D-dimer PT 15.3 Seconds (9.4-12.1) H 10/04/17 18:32 - Impressions Impressions Chest X-Ray 10/09/17 06:00 IMPRESSION: 1. The right hemithorax chest tube has been slightly pulled back with the side port partially at the level of the chest wall with increased subcutaneous emphysema. 2. Redemonstration of COPD and stable right lung base consolidation. No definite pneumothorax though on review of the prior CT thorax 10/05/2017 the pleural air was located anteriorly. D/ / 10/09/2017 08:35:53 Goran Campbell MD / nate Interpreting Provider: Goran Campbell MD Chest X-Ray 10/10/17 06:00 IMPRESSION: Enlarging right-sided pneumothorax. D/ / Cordell Jeffrey MD / Cordell Jeffrey MD Interpreting Provider: Cordell Jeffrey MD - Attending Attestation recurrent right pneumothorax I examined this patient and my medical decision-making was reviewed with the Resident Physician. I agree with the documented findings, disposition and treatment plan as described except to the extent set forth below.
--- NOTE | 2017-10-10 09:23 | Cardiothoracic Progress Note ---
Date of Encounter: 10/10/17 Time of Encounter: 09:21 - Assessment and plan (1) Spontaneous pneumothorax Current Visit: Yes Status: Acute The right spontaneous pneumothorax has recurred. The patient will be scheduled for chest tube placement in interventional radiology. The assessment and plan as outlined above was discussed with the patient and/or family members who expressed understanding and agreement. All questions were answered. - Subjective Interval history: The patient remained hemodynamically stable overnight. He has no respiratory complaints. Oxgyen Flow Rate Oxygen Flow Rate (LPM) 3 Clinical Data, last 8 Hours Output, Urine Amount 225 Weight 10/08/17 10/09/17 10/10/17 23:59 23:59 23:59 Weight 90.1 kg 86.183 kg - Physical Examination General: Conversant, No Apparent Distress Neck: No JVD, Normal carotid pulses Cardiac: Reg Rate and Rhythm, Normal S1 and S2, No Murmur Lungs: Normal Breath Sounds (Left lung cedillo), Decreased breath sounds (Right lung cedillo) Neuro: Alert and responsive, No focal deficits noted Vascular: Normal capillary refill Musculoskeletal: No Chest Wall Tenderness Extremities: No Clubbing, No Cyanosis, No Edema - Labs 10/10/17 05:09 10/10/17 05:09 Lab Results, Last 24 hours 10/10/17 10/10/17 05:09 05:09 WBC 12.0 H Hgb 9.4 L Hct 30.2 L Plt Count 272 Sodium 138 Potassium 4.6 H Chloride 107 Carbon Dioxide 26 BUN 17 Creatinine 0.84 Glucose 89 Calcium 9.0 Total Bilirubin < 0.2 L AST 26 ALT 28 Alkaline Phosphatase 97 - Imaging Chest Xray: image reviewed (Right apical and basilar pneumothorax.) Consult Discharge Plan - Plan Referrals: Eleazar Kee CNP [Primary Care Provider] - 10/15/17 11:00 am () Mansoor Cobos MD [Partnered Physician] - 11/01/17 1:15 pm Gabo Li MD [Partnered Physician] - 10/25/17 9:00 am
--- NOTE | 2017-10-10 10:04 | Pulmonology Progress Note ---
<Natalie Duque - Last Filed: 10/10/17 10:09> Date of Encounter: 10/10/17 Time of Encounter: 10:01 Assessment and Plan (1) Spontaneous pneumothorax Current Visit: Yes Status: Acute Patient has severe emphysematous bullous disease , this is his first pneumothorax evaluated by cardiothoracic surgeon wanted to evaluate his Pulmonary function test at baseline as an outpatient and then proceed with thoracotomy. Patient has not made up his mind yet, he was counseled that he would benefit from bullectomy which reduces the future risk of spontaneous pneumothorax before surgery his baseline pulmonary function has to be evaluated . Patient had chest tube removed yesterday withs krysta oro nd has had recurrance of right lower pneumothorax. Cardiothoracic surgery is following and plans to re-insert chest tube with INterventional radiology guidance. Further management of chest tube per cardiothoracic surgery. Have ordered outpatient PFT will see him as an outpatient in 4-6 weeks after discharge (2) COPD (chronic obstructive pulmonary disease) Current Visit: Yes Status: Chronic To continue with current regimen of bronchodilators, will need to followed up as an outpatient . To continue the current bronchodilator regimen when he goes home, will plan to optimize when we see him outpatient . Will see him in outpatient pulmonology in 4-6 weeks . Qualifiers: COPD type: unspecified COPD Qualified Code(s): J44.9 - Chronic obstructive pulmonary disease, unspecified Subjective Principal diagnosis: Spontaneous pneumothorax Interval history: Patient had chesttube removed, subsequent chest xray showed recurrence of right sided lower pneumothorax which was enlarging and stable small apical right upper lobe pneumothorax. He has been seen by Cardiothoracic surgery and there is plans to christian a right sided chest tube with suction today with Interventional Radiology. Patient seen and examined this morning He states that he usually sleeps on his right side and is currently unable to do so. he does not think his breathing feels any different. He and are concerned about possibility of another reoccurance once he is stable and this chest tube could be removed. There are no other acute concerns. Objective PUL Vital signs: Last Vital Signs Temp 98.4 F 10/10/17 04:13 Pulse 79 10/10/17 04:13 Resp 17 10/10/17 04:13 BP 134/86 10/10/17 04:13 Pulse Ox 96 10/10/17 04:13 General appearance: no acute distress, alert Eyes: nonicteric ENT: oropharynx moist Neck: supple Effort: normal Auscultation: bilateral: clear Cardiovascular: regular rate and rhythm Gastrointestinal: normoactive bowel sounds, non-distended Integumentary: normal Extremities: no cyanosis Results - Laboratory Findings CBC and BMP: 10/10/17 05:09 10/10/17 05:09 PT/INR, D-dimer PT 15.3 Seconds (9.4-12.1) H 10/04/17 18:32 Abnormal lab findings: Abnormal lab results WBC 12.0 K/mcL (4.3-11.1) H 10/10/17 05:09 RBC 3.42 M/mcL (4.19-5.50) L 10/10/17 05:09 Hgb 9.4 g/dL (12.9-16.9) L 10/10/17 05:09 Hct 30.2 % (37.5-50.1) L 10/10/17 05:09 MCH 27.5 pg (28.0-33.3) L 10/10/17 05:09 MCHC 31.1 g/dL (31.6-35.5) L 10/10/17 05:09 RDW 14.8 % (11.5-14.5) H 10/10/17 05:09 PT 15.3 Seconds (9.4-12.1) H 10/04/17 18:32 Potassium 4.6 mEq/L (3.5-4.5) H 10/10/17 05:09 Total Bilirubin < 0.2 mg/dL (0.2-1.2) L 10/10/17 05:09 B-Natriuretic Peptide 154 pg/mL (0-100) H 10/04/17 18:32 Albumin 2.9 g/dL (3.5-5.0) L 10/10/17 05:09 Globulin 3.9 g/dL (2.4-3.5) H 10/10/17 05:09 Albumin/Globulin Ratio 0.7 (1.1-2.2) L 10/10/17 05:09 Urine Blood Trace (Negative) H 10/05/17 01:52 - Clinical Findings Intake & Output: Intake & Output 10/09/17 10/10/17 10/10/17 23:59 07:59 15:59 Intake Total 340 / 340 240 / 240 Output Total 525 / 525 225 / 225 Balance -185 / -185 Weight 86.183 kg Consult Discharge Plan - Plan Referrals: Eleazar Kee CNP [Primary Care Provider] - 10/15/17 11:00 am () Mansoor Cobos MD [Partnered Physician] - 11/01/17 1:15 pm Gabo Li MD [Partnered Physician] - 10/25/17 9:00 am <Gabo Li - Last Filed: 10/10/17 19:33> Date of Encounter: 10/10/17 Assessment and Plan (1) COPD (chronic obstructive pulmonary disease) Current Visit: Yes Status: Chronic Qualifiers: COPD type: emphysema Qualified Code(s): J43.2 - Centrilobular emphysema (2) Spontaneous pneumothorax Current Visit: Yes Status: Acute Objective PUL Vital signs: Last Vital Signs Temp 98.1 F 10/10/17 15:45 Pulse 59 10/10/17 15:45 Resp 18 10/10/17 15:45 BP 129/79 10/10/17 15:45 Pulse Ox 97 10/10/17 15:45 Results - Laboratory Findings CBC and BMP: 10/10/17 05:09 10/10/17 05:09 PT/INR, D-dimer PT 15.3 Seconds (9.4-12.1) H 10/04/17 18:32 Abnormal lab findings: Abnormal lab results WBC 12.0 K/mcL (4.3-11.1) H 10/10/17 05:09 RBC 3.42 M/mcL (4.19-5.50) L 10/10/17 05:09 Hgb 9.4 g/dL (12.9-16.9) L 10/10/17 05:09 Hct 30.2 % (37.5-50.1) L 10/10/17 05:09 MCH 27.5 pg (28.0-33.3) L 10/10/17 05:09 MCHC 31.1 g/dL (31.6-35.5) L 10/10/17 05:09 RDW 14.8 % (11.5-14.5) H 10/10/17 05:09 PT 15.3 Seconds (9.4-12.1) H 10/04/17 18:32 Potassium 4.6 mEq/L (3.5-4.5) H 10/10/17 05:09 Total Bilirubin < 0.2 mg/dL (0.2-1.2) L 10/10/17 05:09 B-Natriuretic Peptide 154 pg/mL (0-100) H 10/04/17 18:32 Albumin 2.9 g/dL (3.5-5.0) L 10/10/17 05:09 Globulin 3.9 g/dL (2.4-3.5) H 10/10/17 05:09 Albumin/Globulin Ratio 0.7 (1.1-2.2) L 10/10/17 05:09 Urine Blood Trace (Negative) H 10/05/17 01:52 - Clinical Findings Intake & Output: Intake & Output 10/10/17 10/10/17 10/10/17 07:59 15:59 23:59 Intake Total 240 / 240 237 / 237 Output Total 225 / 225 600 / 600 Balance -363 / -363 Weight 86.183 kg - Attending Attestation I saw the patient with the resident agree with History and Physical exam findings. Labs and Radiology were reviewed Spontaneous Pneumothorax : After the chest tube was removed recurrence of Right sided pneumothorax with right lower lobe collpase , decided to put IR guided chest tube , procedure went well patient had a 10 fr tube connected to suction , bullectomy planned as an outpatient PFT ordered in 4 weeks after discharge will follow him as outpatient. COPD : Will continue the current regimen of bronchodilators .
[2017-10-10] MEDS: Budesonide/Formoterol 80/4.5 MDI IH SCH ×2 (11:35→21:23)
--- NOTE | 2017-10-10 12:43 | IR Procedure Note ---
Date of procedure: 10/10/17 Consent Obtained: Written consent Timeout: Correct patient and procedure verified, Correct site verified, Time out performed, Skin prep completed Indications: rt pneumothorax Procedure Performed: rt chest tube Site/Technique: rt, 10F tube Results/Findings: adequate placement Estimated blood loss (cc): 0 Complications: None; Tolerated procedure well Post Procedure Treatment Plan: pleuravac suction
[2017-10-10] MEDS: *HR* Morphine 2 MG/ML SYRINGE IVP PRN ×2 (14:07→18:05)
[2017-10-11] MEDS: *HR* Morphine 2 MG/ML SYRINGE IVP PRN ×4 (00:17→17:34)
[2017-10-11] MEDS: Ipratropium/Albuterol Neb 3 ML IH SCH ×4 (04:03→22:11)
[2017-10-11] MEDS: Ketorolac 30 MG/ML VIAL IVP PRN (04:06)
[2017-10-11] MEDS: *HR* Heparin 5,000 UNIT/ML VIAL SQ SCH (05:05)
[2017-10-11 05:13] LABS: Basophils % 0.3 %; Eosinophils # 0.6 K/mcL (0.0-0.6); Hematocrit 30.4 % (37.5-50.1); Hemoglobin 9.4 g/dL (12.9-16.9); Immature Granulocytes % 0.4 % (0-4); Lymphocytes # 2.1 K/mcL (0.6-4.6); Lymphocytes % 16.3 %; Mean Corpuscular HGB Conc 30.9 g/dL (31.6-35.5); Mean Corpuscular Hemoglobin 27.2 pg (28.0-33.3); Mean Corpuscular Volume 88.1 fL (83.0-100.0); Mean Platelet Volume 10.3 fL (9.4-12.4); Monocytes # 1.2 K/mcL (0.0-1.3); Monocytes % 9.5 %; Neutrophils # 8.9 K/mcL (1.6-8.9); Platelet Count 303 K/mcL (140-400); Red Blood Count 3.45 M/mcL (4.19-5.50); Red Cell Distribution Width 14.8 % (11.5-14.5); Segmented Neutrophils % 68.5 %
[2017-10-11 05:23] LABS: Alanine Aminotransferase 35 Units/L (0-55); Albumin 3.2 g/dL (3.5-5.0); Albumin/Globulin Ratio 0.8 (1.1-2.2); Alkaline Phosphatase 100 Units/L (38-126); Aspartate Amino Transferase 27 Units/L (5-34); BUN/Creatinine Ratio 23 (6-26); Bilirubin,Total 0.3 mg/dL (0.2-1.2); Blood Urea Nitrogen 21 mg/dL (8-26); Calcium 9.4 mg/dL (8.6-10.8); Carbon Dioxide 26 mEq/L (19-29); Chloride 107 mEq/L (98-109); Glucose 98 mg/dL (70-99); Osmolality,Calculated 291 (280-300); Potassium 4.8 mEq/L (3.5-4.5); Sodium 139 mEq/L (136-145); Total Protein 7.2 g/dL (6.0-8.3); eGFR For African Americans > 60 (> 60); eGFR For Non-African Americans > 60 (> 60)
[2017-10-11] MEDS: *HR* Amiodarone 200 MG TABLET PO SCH (08:08)
[2017-10-11] MEDS: Sennosides/Docusate Sodium TABLET PO SCH ×2 (08:08→21:36)
[2017-10-11] MEDS: Aspirin Enteric Coated 81 MG Tablet PO SCH (08:09)
[2017-10-11] MEDS: Lactulose Oral Soln 20 GM/30 ML UDC PO SCH (08:09)
[2017-10-11] MEDS: MOM Conc 10 ML UD.LIQ PO PRN (08:11)
--- NOTE | 2017-10-11 08:48 | Cardiothoracic Progress Note ---
Date of Encounter: 10/11/17 Time of Encounter: 08:47 - Assessment and plan (1) Spontaneous pneumothorax Current Visit: Yes Status: Acute The right spontaneous pneumothorax has decreased in size on suction. The chest tube should remain on chest tube suction until the pneumothorax completely resolves. He may ambulate in the hallways off suction. The assessment and plan as outlined above was discussed with the patient and/or family members who expressed understanding and agreement. All questions were answered. - Subjective Interval history: The patient remained hemodynamically stable overnight. He has no respiratory complaints. Vital Signs, Last 4 Hours Temp Pulse Resp BP Pulse Ox 10/11/17 08:25 61 10/11/17 07:12 97.5 F L 57 18 146/89 95 10/11/17 04:55 98.0 F 57 16 146/81 94 Oxgyen Flow Rate Oxygen Flow Rate (LPM) 4 Weight 10/09/17 10/10/17 10/11/17 23:59 23:59 23:59 Weight 90.1 kg 86.183 kg - Physical Examination General: Conversant, No Apparent Distress Neck: No JVD, Normal carotid pulses Cardiac: Reg Rate and Rhythm, Normal S1 and S2, No Murmur Chest tubes: Minimal drainage, Air leak Lungs: Decreased breath sounds Neuro: Alert and responsive, No focal deficits noted Vascular: Normal capillary refill Extremities: No Clubbing, No Cyanosis, No Edema - Labs 10/11/17 04:38 10/11/17 04:38 Lab Results, Last 24 hours 10/11/17 10/11/17 04:38 04:38 WBC 12.9 H Hgb 9.4 L Hct 30.4 L Plt Count 303 Sodium 139 Potassium 4.8 H Chloride 107 Carbon Dioxide 26 BUN 21 Creatinine 0.91 Glucose 98 Calcium 9.4 Total Bilirubin 0.3 AST 27 ALT 35 Alkaline Phosphatase 100 - Imaging Chest Xray: image reviewed (Small right apical and right basilar pneumothorax, slightly decreased in size.) Consult Discharge Plan - Plan Referrals: Eleazar Kee CNP [Primary Care Provider] - 10/15/17 11:00 am () Mansoor Cobos MD [Partnered Physician] - 11/01/17 1:15 pm Gabo Li MD [Partnered Physician] - 10/25/17 9:00 am
[2017-10-11] MEDS: Budesonide/Formoterol 80/4.5 MDI IH SCH ×2 (10:37→22:11)
--- NOTE | 2017-10-11 11:39 | Pulmonology Progress Note ---
Date of Encounter: 10/11/17 Time of Encounter: 11:30 Assessment and Plan (1) COPD (chronic obstructive pulmonary disease) Current Visit: Yes Status: Chronic To continue with current regimen of bronchodilators to continue antibiotics for now , will need to followed up as an outpatient . To continue the current bronchodilator regimen when he goes home will optimize when we see him outpatient . Will see him in outpatient pulmonology in 4-6 weeks . Qualifiers: COPD type: emphysema Qualified Code(s): J43.2 - Centrilobular emphysema (2) Spontaneous pneumothorax Current Visit: Yes Status: Acute Patient has severe emphysematous bullous disease , this is his first pneumothorax evaluated by cardiothoracic surgeon wanted to evaluate his Pulmonary function test at baseline as an outpatient and then proceed with thoracotomy patient has not made up his mind yet counseled he would benefit from bullectomy which reduces the future risk of spontaneous pneumothorax before surgery his baseline pulmonary function has to be evaluated . After removing chest tube there was recurrence of pneumothorax , chest tube was reinserted still has airleak . is following regarding chest tube management will follow peripherally call with questions Subjective Principal diagnosis: Spontaneous pneumothorax Interval history: Patient doesnt have any complaints . Objective PUL Vital signs: Last Vital Signs Temp 98.2 F 10/11/17 10:37 Pulse 71 10/11/17 10:37 Resp 17 10/11/17 10:37 BP 133/62 10/11/17 10:37 Pulse Ox 94 10/11/17 10:37 Auscultation: right: diminished breath sounds Results - Laboratory Findings CBC and BMP: 10/11/17 04:38 10/11/17 04:38 PT/INR, D-dimer PT 15.3 Seconds (9.4-12.1) H 10/04/17 18:32 Abnormal lab findings: Abnormal lab results WBC 12.9 K/mcL (4.3-11.1) H 10/11/17 04:38 RBC 3.45 M/mcL (4.19-5.50) L 10/11/17 04:38 Hgb 9.4 g/dL (12.9-16.9) L 10/11/17 04:38 Hct 30.4 % (37.5-50.1) L 10/11/17 04:38 MCH 27.2 pg (28.0-33.3) L 10/11/17 04:38 MCHC 30.9 g/dL (31.6-35.5) L 10/11/17 04:38 RDW 14.8 % (11.5-14.5) H 10/11/17 04:38 PT 15.3 Seconds (9.4-12.1) H 10/04/17 18:32 Potassium 4.8 mEq/L (3.5-4.5) H 10/11/17 04:38 B-Natriuretic Peptide 154 pg/mL (0-100) H 10/04/17 18:32 Albumin 3.2 g/dL (3.5-5.0) L 10/11/17 04:38 Globulin 4.0 g/dL (2.4-3.5) H 10/11/17 04:38 Albumin/Globulin Ratio 0.8 (1.1-2.2) L 10/11/17 04:38 Urine Blood Trace (Negative) H 10/05/17 01:52 - Clinical Findings Intake & Output: Intake & Output 10/10/17 10/11/17 10/11/17 23:59 07:59 15:59 Intake Total 360 / 360 Output Total 300 / 300 0 / 0 Balance -300 / -300 360 / 360 Consult Discharge Plan - Plan Referrals: Eleazar Kee CNP [Primary Care Provider] - 10/15/17 11:00 am () Mansoor Cobos MD [Partnered Physician] - 11/01/17 1:15 pm Gabo Li MD [Partnered Physician] - 10/25/17 9:00 am
[2017-10-11] MEDS: *HR* HYDROcodone/Acet 10/325 mg TABLET PO PRN ×3 (12:02→23:39)
--- NOTE | 2017-10-11 13:04 | Internal Med Progress Note ---
Date of Encounter: 10/11/17 Time of Encounter: 13:02 - Assessment and plan (1) Spontaneous pneumothorax Current Visit: Yes Status: Acute Assessment and plan: Current Visit: Yes Status: Acute Assessment and plan: Mr. Johnson 62-year-old male admitted on 10/04/2017 after presenting with acute onset shortness of breath found to have a pneumothorax receiving chest tube in the right chest in the emergency department. Patient has severe emphysematous bullous disease resulting his first pneumothorax. He has been evaluated by cardiothoracic surgeon Dr. Cobos has been recommended for pulmonary function testing to have a baseline in the outpatient setting post discharge and prior to any thoracotomy/bullectomy procedure. Patient's first chest tube was removed 10/09/2017, no air leak or water seal problems prior to removal. Chest x-ray from 10 10 2017 demonstrated recurrence of right sided pneumothorax, evaluated by cardiothoracic surgery recommended for IR to perform pigtail catheter. PFTs in the outpatient setting prior to follow-up with cardiothoracic surgery for possible right thoracotomy and lung volume reduction surgery. Pain control with morphine - Interventional radiology placed a pigtail catheter/right chest tube on - Schedule outpatient PFT per pulmonary - Schedule follow-up with pulmonology in 2 weeks - Follow up with cardiothoracic surgery post PFT (2) COPD (chronic obstructive pulmonary disease) Current Visit: Yes Status: Chronic Assessment and plan: Stable - not in exacerbation Continue DuoNeb breathing treatment, Symbicort, O2 via [place] Qualifiers: COPD type: emphysema Qualified Code(s): J43.2 - Centrilobular emphysema (3) Hypertension Current Visit: No Status: Chronic Assessment and plan: Controlled. Continue home dose of lisinopril Qualifiers: Hypertension type: essential hypertension Qualified Code(s): I10 - Essential (primary) hypertension (4) CAD (coronary artery disease) Current Visit: No Status: Chronic Assessment and plan: Coronary artery disease status post CABG, stable Continue Aspirin, Lipitor Initial Troponin 0.04. Repeat = 0.02 2. BNP = 154 EKG - sinus rhythm with no acute ST-T changes Echocardiogram (07/30/2016) - LVEF 50-55%, normal size and function, mild LVH, indeterminant diastolic function, normal RV size and function, severely dilated [place] Qualifiers: Coronary Disease-Associated Artery/Lesion type: [place] artery [place] vs. transplanted heart: [place] heart Associated angina: without angina Qualified Code(s): I25.10 - Atherosclerotic heart disease of [place] coronary artery without angina pectoris (5) Atrial fibrillation Current Visit: Yes Status: Chronic Assessment and plan: Chronic atrial fibrillation, rate controlled Rate has been well controlled during this hospitalization. Continue home dose of Amiodarone Hold Eliquis for now Qualifiers: Atrial fibrillation type: chronic Qualified Code(s): I48.2 - Chronic atrial fibrillation - Subjective Interval history: Complains of some pain over the right side of his thorax where the chest tube is 7 out of 10 in intensity, denies any abdominal pain, no dysuria, no fevers or chills - Constitutional Vitals: Temp Pulse Resp BP Pulse Ox 98.2 F 76 16 133/62 94 10/11/17 10:37 10/11/17 12:04 10/11/17 10:37 10/11/17 10:37 10/11/17 10:37 General appearance: Present: cooperative, A&O X 3, pleasant, no acute distress, answers questions appropriately - Head Head exam: Present: atraumatic, normocephalic - Eye Eye exam: Present: PERRL, conjuntiva pink, sclera anicteric Pupils: Present: PERRL - Neck Neck exam general surgery: Present: supple, trachea midline. Absent: lymphadenopathy - Respiratory Respiratory exam: Present: decreased breath sounds, CTAB. Absent: accessory muscle use, rales, rhonchi, wheezes Additional comments: Right upper chest tube in place - Cardiovascular Cardiovascular exam: Present: RRR, +S1, +S2. Absent: diastolic murmur, gallop, rubs, systolic murmur - GI/Abdominal GI/Abdominal exam: Present: normal bowel sounds, soft, no peritoneal signs. Absent: distended, tenderness - Extremities Exam Extremities exam: Present: warm, radial pulses palpable and symmetrical. Absent : calf tenderness, cyanotic, pedal edema - Neurological Exam Neurological exam: Present: CN II-XII intact, oriented X3, no focal deficits. Absent: pronater drift, facial droop, speech deficit - Skin Skin exam: Present: dry, intact Internal Medicine: Result - Labs CBC & Chem 7: 10/11/17 04:38 10/11/17 04:38 Labs: Short CBC 10/11/17 Range/Units 04:38 WBC 12.9 H (4.3-11.1) K/mcL Hgb 9.4 L (12.9-16.9) g/dL Hct 30.4 L (37.5-50.1) % Plt Count 303 (140-400) K/mcL Neutrophils # 8.9 (1.6-8.9) K/mcL BMP 10/11/17 04:38 Sodium 139 Potassium 4.8 H Chloride 107 Carbon Dioxide 26 BUN 21 Creatinine 0.91 Glucose 98 Calcium 9.4 Liver Function 10/11/17 Range/Units 04:38 Total Bilirubin 0.3 (0.2-1.2) mg/dL AST 27 (5-34) Units/L ALT 35 (0-55) Units/L Alkaline Phosphatase 100 (38-126) Units/L Albumin 3.2 L (3.5-5.0) g/dL - ABG Interpretation ABG results: PT/INR, D-dimer PT 15.3 Seconds (9.4-12.1) H 10/04/17 18:32 - Impressions Impressions Needle Aspiration CT 10/10/17 00:00 IMPRESSION: Successful CT guided placement of a chest tube D/ / 10/10/2017 15:26:56 Silvia Almanza MD / spencer Interpreting Provider: Silvia Almanza MD Chest X-Ray 10/11/17 07:13 IMPRESSION: Modest decrease in right pneumothorax as described. D/ / Shukri Arita MD / Shukri Arita MD Interpreting Provider: Shukri Arita MD Consult Discharge Plan - Plan Referrals: Eleazar Kee CNP [Primary Care Provider] - 10/15/17 11:00 am () Mansoor Cobos MD [Partnered Physician] - 11/01/17 1:15 pm Gabo Li MD [Partnered Physician] - 10/25/17 9:00 am
[2017-10-12] MEDS: Ipratropium/Albuterol Neb 3 ML IH SCH ×4 (04:01→22:05)
[2017-10-12] MEDS: *HR* Morphine 2 MG/ML SYRINGE IVP PRN ×6 (05:01→21:12)
[2017-10-12] MEDS: *HR* HYDROcodone/Acet 10/325 mg TABLET PO PRN ×3 (07:37→19:05)
[2017-10-12] MEDS: *HR* Amiodarone 200 MG TABLET PO SCH (07:38)
[2017-10-12] MEDS: Lactulose Oral Soln 20 GM/30 ML UDC PO SCH (07:38)
[2017-10-12] MEDS: Sennosides/Docusate Sodium TABLET PO SCH ×2 (07:38→21:12)
[2017-10-12] MEDS: Aspirin Enteric Coated 81 MG Tablet PO SCH (07:38)
[2017-10-12 08:54] LABS: BUN/Creatinine Ratio 20 (6-26); Blood Urea Nitrogen 20 mg/dL (8-26); Calcium 9.9 mg/dL (8.6-10.8); Carbon Dioxide 27 mEq/L (19-29); Chloride 104 mEq/L (98-109); Glucose 96 mg/dL (70-99); Osmolality,Calculated 288 (280-300); Potassium 4.6 mEq/L (3.5-4.5); Sodium 138 mEq/L (136-145); eGFR For African Americans > 60 (> 60); eGFR For Non-African Americans > 60 (> 60)
--- NOTE | 2017-10-12 09:58 | Cardiothoracic Progress Note ---
Date of Encounter: 10/12/17 Time of Encounter: 09:53 - Assessment and plan (1) Spontaneous pneumothorax Current Visit: Yes Status: Acute The right spontaneous pneumothorax has increased in size on suction. The patient will require a second chest tube to be placed in the base of the right hemithorax. This will be performed in interventional radiology. Both chest tubes should remain on chest tube suction until the pneumothorax completely resolves. He may ambulate in the hallways off suction. The assessment and plan as outlined above was discussed with the patient and/or family members who expressed understanding and agreement. All questions were answered. - Subjective Interval history: The patient remained hemodynamically stable overnight. He has no respiratory complaints. Vital Signs, Last 4 Hours Temp Pulse Resp BP Pulse Ox 10/12/17 07:30 63 95 10/12/17 06:58 98.3 F 68 18 135/82 96 Oxgyen Flow Rate Oxygen Flow Rate (LPM) 3 Clinical Data, last 8 Hours Output, Urine Amount 0 Output, Urine Amount 500 Output, Urine Amount 550 Weight 10/10/17 10/11/17 10/12/17 23:59 23:59 23:59 Weight 86.183 kg 89 kg - Physical Examination General: Conversant, No Apparent Distress Neck: No JVD, Normal carotid pulses Cardiac: Reg Rate and Rhythm, Normal S1 and S2, No Murmur Incision: No signs of infection, Dry/intact dressing Chest tubes: Minimal drainage, Air leak Lungs: Normal Breath Sounds (Left lung cedillo.), Decreased breath sounds (Right lung [place].) Neuro: Alert and responsive, No focal deficits noted Vascular: Normal capillary refill Extremities: No Clubbing, No Cyanosis, No Edema - Labs 10/11/17 04:38 10/12/17 08:34 Lab Results, Last 24 hours 10/12/17 08:34 Sodium 138 Potassium 4.6 H Chloride 104 Carbon Dioxide 27 BUN 20 Creatinine 0.98 Glucose 96 Calcium 9.9 - Imaging Chest Xray: image reviewed (Increased right basilar pneumothorax.) Consult Discharge Plan - Plan Referrals: Eleazar Kee CNP [Primary Care Provider] - 10/26/17 11:00 am () Mansoor Cobos MD [Partnered Physician] - 11/01/17 1:15 pm Gabo Li MD [Partnered Physician] - 10/25/17 9:00 am
[2017-10-12] MEDS: Budesonide/Formoterol 80/4.5 MDI IH SCH ×2 (11:40→22:05)
[2017-10-12] MEDS ORDERED: *HR* FentaNYL (PF) 100 MCG/2 ML VIAL IVP ONE (13:24)
[2017-10-12] MEDS ORDERED: 0.9 % Sodium Chloride 500 ML ONE (13:35)
--- NOTE | 2017-10-12 14:02 | IR Procedure Note ---
Date of procedure: 10/12/17 Consent Obtained: Written consent Timeout: Correct patient and procedure verified, Correct site verified, Time out performed, Skin prep completed Local anesthetic: Lidocaine 1% Indications: Right PTX Procedure Performed: Right chest tube placement Results/Findings: 14F right chest tube placement Complications: None; Tolerated procedure well (Monitor on floor)
--- NOTE | 2017-10-12 15:15 | Internal Med Progress Note ---
Date of Encounter: 10/12/17 Time of Encounter: 15:13 - Assessment and plan (1) Spontaneous pneumothorax Current Visit: Yes Status: Acute Assessment and plan: Current Visit: Yes Status: Acute Assessment and plan: Mr. Johnson 62-year-old male admitted on 10/04/2017 after presenting with acute onset shortness of breath found to have a pneumothorax receiving chest tube in the right chest in the emergency department. Patient has severe emphysematous bullous disease resulting his first pneumothorax. He has been evaluated by cardiothoracic surgeon Dr. Cobos has been recommended for pulmonary function testing to have a baseline in the outpatient setting post discharge and prior to any thoracotomy/bullectomy procedure. Patient's first chest tube was removed 10/09/2017, no air leak or water seal problems prior to removal. Chest x-ray from 10 10 2017 demonstrated recurrence of right sided pneumothorax, evaluated by cardiothoracic surgery recommended for IR to perform pigtail catheter. PFTs in the outpatient setting prior to follow-up with cardiothoracic surgery for possible right thoracotomy and lung volume reduction surgery. Pain control with morphine Chest x-ray from 10/12/2017 was morning showed progression of the lateral right lung base pneumothorax - Interventional radiology placed a pigtail catheter/right chest tube on , second chest tube placed on 10/12/2017 - Schedule outpatient PFT per pulmonary - Schedule follow-up with pulmonology in 2 weeks after discharge - Follow up with cardiothoracic surgery post PFT (2) COPD (chronic obstructive pulmonary disease) Current Visit: Yes Status: Chronic Assessment and plan: Stable - not in exacerbation Continue DuoNeb breathing treatment, Symbicort, O2 via [place] Qualifiers: COPD type: emphysema Qualified Code(s): J43.2 - Centrilobular emphysema (3) Hypertension Current Visit: No Status: Chronic Assessment and plan: Controlled. Continue home dose of lisinopril Qualifiers: Hypertension type: essential hypertension Qualified Code(s): I10 - Essential (primary) hypertension (4) CAD (coronary artery disease) Current Visit: No Status: Chronic Assessment and plan: Coronary artery disease status post CABG, stable Continue Aspirin, Lipitor Initial Troponin 0.04. Repeat = 0.02 2. BNP = 154 EKG - sinus rhythm with no acute ST-T changes Echocardiogram (07/30/2016) - LVEF 50-55%, normal size and function, mild LVH, indeterminant diastolic function, normal RV size and function, severely dilated [place] Qualifiers: Coronary Disease-Associated Artery/Lesion type: [place] artery [place] vs. transplanted heart: [place] heart Associated angina: without angina Qualified Code(s): I25.10 - Atherosclerotic heart disease of [place] coronary artery without angina pectoris (5) Atrial fibrillation Current Visit: Yes Status: Chronic Assessment and plan: Chronic atrial fibrillation, rate controlled Rate has been well controlled during this hospitalization. Continue home dose of Amiodarone Hold Eliquis for now Qualifiers: Atrial fibrillation type: chronic Qualified Code(s): I48.2 - Chronic atrial fibrillation - Subjective Interval history: Complains of some pain over both of the areas where the chest tubes are placed 7 out of 10 in intensity, denies any abdominal pain, no dysuria, no fevers or chills - Constitutional Vitals: Temp Pulse Resp BP Pulse Ox 98.3 F 69 18 129/72 94 10/12/17 11:24 10/12/17 13:55 10/12/17 13:55 10/12/17 13:55 10/12/17 13:55 General appearance: Present: cooperative, A&O X 3, pleasant, no acute distress, answers questions appropriately Exam: - Head Head exam: Present: atraumatic, normocephalic - Eye Eye exam: Present: PERRL, conjuntiva pink, sclera anicteric Pupils: Present: PERRL - Neck Neck exam general surgery: Present: supple, trachea midline. Absent: lymphadenopathy - Respiratory Respiratory exam: Present: decreased breath sounds, CTAB. Absent: accessory muscle use, rales, rhonchi, wheezes Additional comments: Right upper and right lower thoracic/lateral area chest tubes in place - Cardiovascular Cardiovascular exam: Present: RRR, +S1, +S2. Absent: diastolic murmur, gallop, rubs, systolic murmur - GI/Abdominal GI/Abdominal exam: Present: normal bowel sounds, soft, no peritoneal signs. Absent: distended, tenderness - Extremities Exam Extremities exam: Present: warm, radial pulses palpable and symmetrical. Absent : calf tenderness, cyanotic, pedal edema - Neurological Exam Neurological exam: Present: CN II-XII intact, oriented X3, no focal deficits. Absent: pronater drift, facial droop, speech deficit - Skin Skin exam: Present: dry, intact Internal Medicine: Result - Labs CBC & Chem 7: 10/11/17 04:38 10/12/17 08:34 Labs: BMP 10/12/17 08:34 Sodium 138 Potassium 4.6 H Chloride 104 Carbon Dioxide 27 BUN 20 Creatinine 0.98 Glucose 96 Calcium 9.9 - ABG Interpretation ABG results: PT/INR, D-dimer PT 15.3 Seconds (9.4-12.1) H 10/04/17 18:32 - Impressions Impressions Needle Aspiration CT 10/12/17 00:00 IMPRESSION: 1. CT guided right chest tube placement as discussed above. D/ / Alberto Graham MD / Alberto Graham MD Interpreting Provider: Alberto Graham MD Chest X-Ray 10/12/17 06:00 IMPRESSION: Stable right-sided chest tube. Pneumothorax mildly improved at the right lung apex and progressed at the lateral right lung base. Right lower lobe atelectasis. D/ / Philip Kellogg MD / Philip Kellogg MD Interpreting Provider: Philip Kellogg MD Consult Discharge Plan - Plan Referrals: Eleazar Kee CNP [Primary Care Provider] - 10/26/17 11:00 am () Mansoor Cobos MD [Partnered Physician] - 11/01/17 1:15 pm Gabo Li MD [Partnered Physician] - 10/25/17 9:00 am
[2017-10-13] MEDS: *HR* Morphine 2 MG/ML SYRINGE IVP PRN ×5 (01:23→20:40)
[2017-10-13] MEDS: *HR* HYDROcodone/Acet 10/325 mg TABLET PO PRN ×5 (01:23→20:40)
[2017-10-13] MEDS: Ipratropium/Albuterol Neb 3 ML IH SCH ×4 (03:49→21:53)
[2017-10-13] MEDS: *HR* Amiodarone 200 MG TABLET PO SCH (07:52)
[2017-10-13] MEDS: Sennosides/Docusate Sodium TABLET PO SCH ×2 (07:52→20:40)
[2017-10-13] MEDS: Aspirin Enteric Coated 81 MG Tablet PO SCH (07:52)
[2017-10-13] MEDS: Lactulose Oral Soln 20 GM/30 ML UDC PO SCH (07:52)
[2017-10-13] MEDS: Budesonide/Formoterol 80/4.5 MDI IH SCH ×2 (09:52→21:53)
--- NOTE | 2017-10-13 10:24 | Cardiothoracic Progress Note ---
Date of Encounter: 10/13/17 Time of Encounter: 10:22 - Assessment and plan (1) Spontaneous pneumothorax Current Visit: Yes Status: Acute The right spontaneous pneumothorax has increased in size on suction. The neck and chest tube was placed yesterday and the patient states that his breathing more comfortably. The new chest tube (chest tube #2) has a persistent air leak on suction. Both chest tubes should remain on chest tube suction until the pneumothorax completely resolves and the leaks stop. He may ambulate in the hallways off suction. The assessment and plan as outlined above was discussed with the patient and/or family members who expressed understanding and agreement. All questions were answered. - Subjective Interval history: The patient remained hemodynamically stable overnight. He states that he is breathing more comfortably after the second chest tube was placed yesterday. Vital Signs, Last 4 Hours Temp Pulse Resp BP Pulse Ox 10/13/17 09:53 18 92 10/13/17 07:58 54 10/13/17 06:53 98.5 F 58 20 141/89 92 Oxgyen Flow Rate Oxygen Flow Rate (LPM) 3 Clinical Data, last 8 Hours Output, Chest Tube Drainage 0 Amount [Right Lower Lateral Chest #2] Output, Chest Tube Drainage 6 Amount [Right Lower Lateral Chest #2] Output, Chest Tube Drainage 0 Amount [Right Upper Anterior Chest #1] Output, Chest Tube Drainage 0 Amount [Right Upper Anterior Chest #1] Output, Urine Amount 200 Output, Urine Amount 200 Output, Urine Amount 825 Weight 10/11/17 10/12/17 10/13/17 23:59 23:59 23:59 Weight 89 kg 89.4 kg - Physical Examination General: Conversant, No Apparent Distress Neck: No JVD, Normal carotid pulses Cardiac: Reg Rate and Rhythm, Normal S1 and S2, No Murmur Incision: No signs of infection, Dry/intact dressing Chest tubes: Minimal drainage, Air leak Lungs: Normal Breath Sounds, No Wheeze, Rales, Rhonchi Neuro: Alert and responsive, No focal deficits noted Vascular: Normal capillary refill Extremities: No Clubbing, No Cyanosis, No Edema - Labs 10/11/17 04:38 10/12/17 08:34 - VTE Documentation of Mechanical Device: Intermittent pneumatic compression device Consult Discharge Plan - Plan Referrals: Eleazar Kee CNP [Primary Care Provider] - 10/26/17 11:00 am () Mansoor Cobos MD [Partnered Physician] - 11/01/17 1:15 pm Gabo Li MD [Partnered Physician] - 10/25/17 9:00 am
--- NOTE | 2017-10-13 14:23 | Internal Med Progress Note ---
Date of Encounter: 10/13/17 Time of Encounter: 14:21 - Assessment and plan (1) Spontaneous pneumothorax Current Visit: Yes Status: Acute Assessment and plan: Current Visit: Yes Status: Acute Assessment and plan: Mr. Johnson 62-year-old male admitted on 10/04/2017 after presenting with acute onset shortness of breath found to have a pneumothorax receiving chest tube in the right chest in the emergency department. Patient has severe emphysematous bullous disease resulting his first pneumothorax. He has been evaluated by cardiothoracic surgeon Dr. Cobos has been recommended for pulmonary function testing to have a baseline in the outpatient setting post discharge and prior to any thoracotomy/bullectomy procedure. Patient's first chest tube was removed 10/09/2017, no air leak or water seal problems prior to removal. Chest x-ray from 10 10 2017 demonstrated recurrence of right sided pneumothorax, evaluated by cardiothoracic surgery recommended for IR to perform pigtail catheter. PFTs in the outpatient setting prior to follow-up with cardiothoracic surgery for possible right thoracotomy and lung volume reduction surgery. Pain control with morphine Chest x-ray from 10/12/2017 was morning showed progression of the lateral right lung base pneumothorax - Interventional radiology placed a pigtail catheter/right chest tube on , second chest tube placed on 10/12/2017 - Schedule outpatient PFT per pulmonary - Schedule follow-up with pulmonology in 2 weeks after discharge - Follow up with cardiothoracic surgery post PFT Check chest x-ray in the morning (2) COPD (chronic obstructive pulmonary disease) Current Visit: Yes Status: Chronic Assessment and plan: Stable - not in exacerbation Continue DuoNeb breathing treatment, Symbicort, O2 via [place] Qualifiers: COPD type: emphysema Qualified Code(s): J43.2 - Centrilobular emphysema (3) Hypertension Current Visit: No Status: Chronic Assessment and plan: Controlled. Continue home dose of lisinopril Qualifiers: Hypertension type: essential hypertension Qualified Code(s): I10 - Essential (primary) hypertension (4) CAD (coronary artery disease) Current Visit: No Status: Chronic Assessment and plan: Coronary artery disease status post CABG, stable Continue Aspirin, Lipitor Initial Troponin 0.04. Repeat = 0.02 2. BNP = 154 EKG - sinus rhythm with no acute ST-T changes Echocardiogram (07/30/2016) - LVEF 50-55%, normal size and function, mild LVH, indeterminant diastolic function, normal RV size and function, severely dilated [place] Qualifiers: Coronary Disease-Associated Artery/Lesion type: [place] artery [place] vs. transplanted heart: [place] heart Associated angina: without angina Qualified Code(s): I25.10 - Atherosclerotic heart disease of [place] coronary artery without angina pectoris (5) Atrial fibrillation Current Visit: Yes Status: Chronic Assessment and plan: Chronic atrial fibrillation, rate controlled Rate has been well controlled during this hospitalization. Continue home dose of Amiodarone Hold Eliquis for now Qualifiers: Atrial fibrillation type: chronic Qualified Code(s): I48.2 - Chronic atrial fibrillation - Subjective Interval history: NO new complaints except for some pain over both of the areas where the chest tubes are placed 7 out of 10 in intensity, denies any abdominal pain, no dysuria , no fevers or chills - Constitutional Vitals: Temp Pulse Resp BP Pulse Ox 98.4 F 60 15 126/78 93 10/13/17 13:34 10/13/17 13:34 10/13/17 13:34 10/13/17 13:34 10/13/17 13:34 General appearance: Present: cooperative, A&O X 3, pleasant, no acute distress, answers questions appropriately Exam: - Head Head exam: Present: atraumatic, normocephalic - Eye Eye exam: Present: PERRL, conjuntiva pink, sclera anicteric Pupils: Present: PERRL - Neck Neck exam general surgery: Present: supple, trachea midline. Absent: lymphadenopathy - Respiratory Respiratory exam: Present: decreased breath sounds, CTAB. Absent: accessory muscle use, rales, rhonchi, wheezes Additional comments: Right upper and right lower thoracic/lateral area chest tubes in place - Cardiovascular Cardiovascular exam: Present: RRR, +S1, +S2. Absent: diastolic murmur, gallop, rubs, systolic murmur - GI/Abdominal GI/Abdominal exam: Present: normal bowel sounds, soft, no peritoneal signs. Absent: distended, tenderness - Extremities Exam Extremities exam: Present: warm, radial pulses palpable and symmetrical. Absent : calf tenderness, cyanotic, pedal edema - Neurological Exam Neurological exam: Present: CN II-XII intact, oriented X3, no focal deficits. Absent: pronater drift, facial droop, speech deficit - Skin Skin exam: Present: dry, intact Internal Medicine: Result - Labs CBC & Chem 7: 10/11/17 04:38 10/12/17 08:34 - ABG Interpretation ABG results: PT/INR, D-dimer PT 15.3 Seconds (9.4-12.1) H 10/04/17 18:32 - Impressions Impressions Needle Aspiration CT 10/12/17 00:00 IMPRESSION: 1. CT guided right chest tube placement as discussed above. D/ / Alberto Graham MD / Alberto Graham MD Interpreting Provider: Alberto Graham MD - VTE Documentation of Mechanical Device: Intermittent pneumatic compression device Consult Discharge Plan - Plan Referrals: Eleazar Kee CNP [Primary Care Provider] - 10/26/17 11:00 am () Mansoor Cobos MD [Partnered Physician] - 11/01/17 1:15 pm Gabo Li MD [Partnered Physician] - 10/25/17 9:00 am
[2017-10-14] MEDS: *HR* Morphine 2 MG/ML SYRINGE IVP PRN ×5 (02:19→19:34)
[2017-10-14] MEDS: *HR* HYDROcodone/Acet 10/325 mg TABLET PO PRN ×4 (02:20→19:35)
[2017-10-14] MEDS: Ipratropium/Albuterol Neb 3 ML IH SCH ×4 (03:55→22:19)
[2017-10-14] MEDS: Aspirin Enteric Coated 81 MG Tablet PO SCH (07:23)
[2017-10-14] MEDS: *HR* Amiodarone 200 MG TABLET PO SCH (07:23)
[2017-10-14] MEDS: Lactulose Oral Soln 20 GM/30 ML UDC PO SCH (07:23)
[2017-10-14] MEDS: Sennosides/Docusate Sodium TABLET PO SCH ×2 (07:23→19:35)
--- NOTE | 2017-10-14 10:26 | Internal Med Progress Note ---
Date of Encounter: 10/14/17 Time of Encounter: 10:25 - Assessment and plan (1) Spontaneous pneumothorax Current Visit: Yes Status: Acute Assessment and plan: Current Visit: Yes Status: Acute Assessment and plan: Mr. Johnson 62-year-old male admitted on 10/04/2017 after presenting with acute onset shortness of breath found to have a pneumothorax receiving chest tube in the right chest in the emergency department. Patient has severe emphysematous bullous disease resulting his first pneumothorax. He has been evaluated by cardiothoracic surgeon Dr. Cobos has been recommended for pulmonary function testing to have a baseline in the outpatient setting post discharge and prior to any thoracotomy/bullectomy procedure. Patient's first chest tube was removed 10/09/2017, no air leak or water seal problems prior to removal. Chest x-ray from 10 10 2017 demonstrated recurrence of right sided pneumothorax, evaluated by cardiothoracic surgery recommended for IR to perform pigtail catheter. PFTs in the outpatient setting prior to follow-up with cardiothoracic surgery for possible right thoracotomy and lung volume reduction surgery. Pain control with morphine Chest x-ray from 10/12/2017 was morning showed progression of the lateral right lung base pneumothorax - Interventional radiology placed a pigtail catheter/right chest tube on , second chest tube placed on 10/12/2017 - Schedule outpatient PFT per pulmonary - Schedule follow-up with pulmonology in 2 weeks after discharge - Follow up with cardiothoracic surgery post PFT chest x-ray showed resolution of pneumothorax Cardiothoracic surgery recommendations appreciated (2) COPD (chronic obstructive pulmonary disease) Current Visit: Yes Status: Chronic Assessment and plan: Stable - not in exacerbation Continue DuoNeb breathing treatment, Symbicort, O2 via [place] Qualifiers: COPD type: emphysema Qualified Code(s): J43.2 - Centrilobular emphysema (3) Hypertension Current Visit: No Status: Chronic Assessment and plan: Controlled. Continue home dose of lisinopril Qualifiers: Hypertension type: essential hypertension Qualified Code(s): I10 - Essential (primary) hypertension (4) CAD (coronary artery disease) Current Visit: No Status: Chronic Assessment and plan: Coronary artery disease status post CABG, stable Continue Aspirin, Lipitor Initial Troponin 0.04. Repeat = 0.02 2. BNP = 154 EKG - sinus rhythm with no acute ST-T changes Echocardiogram (07/30/2016) - LVEF 50-55%, normal size and function, mild LVH, indeterminant diastolic function, normal RV size and function, severely dilated LA Qualifiers: Coronary Disease-Associated Artery/Lesion type: [place] artery [place] vs. transplanted heart: [place] heart Associated angina: without angina Qualified Code(s): I25.10 - Atherosclerotic heart disease of [place] coronary artery without angina pectoris (5) Atrial fibrillation Current Visit: Yes Status: Chronic Assessment and plan: Chronic atrial fibrillation, rate controlled Rate has been well controlled during this hospitalization. Continue home dose of Amiodarone Hold Eliquis for now Qualifiers: Atrial fibrillation type: chronic Qualified Code(s): I48.2 - Chronic atrial fibrillation - Subjective Interval history: Feeling better. NO new complaints except for some pain over both of the areas where the chest tubes are placed 7 out of 10 in intensity, denies any abdominal pain, no dysuria, no fevers or chills - Constitutional Vitals: Temp Pulse Resp BP Pulse Ox 98.5 F 90 18 110/74 95 10/14/17 07:31 10/14/17 07:33 10/14/17 07:31 10/14/17 07:31 10/14/17 07:31 General appearance: Present: cooperative, A&O X 3, pleasant, no acute distress, answers questions appropriately Exam: - Head Head exam: Present: atraumatic, normocephalic - Eye Eye exam: Present: PERRL, conjuntiva pink, sclera anicteric Pupils: Present: PERRL - Neck Neck exam general surgery: Present: supple, trachea midline. Absent: lymphadenopathy - Respiratory Respiratory exam: Present: decreased breath sounds, CTAB. Absent: accessory muscle use, rales, rhonchi, wheezes Additional comments: Right upper and right lower thoracic/lateral area chest tubes in place - Cardiovascular Cardiovascular exam: Present: RRR, +S1, +S2. Absent: diastolic murmur, gallop, rubs, systolic murmur - GI/Abdominal GI/Abdominal exam: Present: normal bowel sounds, soft, no peritoneal signs. Absent: distended, tenderness - Extremities Exam Extremities exam: Present: warm, radial pulses palpable and symmetrical. Absent : calf tenderness, cyanotic, pedal edema - Neurological Exam Neurological exam: Present: CN II-XII intact, oriented X3, no focal deficits. Absent: pronater drift, facial droop, speech deficit - Skin Skin exam: Present: dry, intact Internal Medicine: Result - Labs CBC & Chem 7: 10/11/17 04:38 10/12/17 08:34 - ABG Interpretation ABG results: PT/INR, D-dimer PT 15.3 Seconds (9.4-12.1) H 10/04/17 18:32 - Impressions Impressions Chest X-Ray 10/14/17 06:00 IMPRESSION: Near complete evacuation of the right-sided pneumothorax. D/ / Cordell Jeffrey MD / Cordell Jeffrey MD Interpreting Provider: Cordell Jeffrey MD - VTE Documentation of Mechanical Device: Intermittent pneumatic compression device Consult Discharge Plan - Plan Referrals: Eleazar Kee CNP [Primary Care Provider] - 10/26/17 11:00 am () Mansoor Cobos MD [Partnered Physician] - 11/01/17 1:15 pm Gabo Li MD [Partnered Physician] - 10/25/17 9:00 am
[2017-10-14] MEDS: Budesonide/Formoterol 80/4.5 MDI IH SCH ×2 (10:48→22:19)
[2017-10-15] MEDS: *HR* Morphine 2 MG/ML SYRINGE IVP PRN ×5 (03:22→21:00)
[2017-10-15] MEDS: Ipratropium/Albuterol Neb 3 ML IH SCH ×4 (04:22→22:26)
[2017-10-15] MEDS: *HR* HYDROcodone/Acet 10/325 mg TABLET PO PRN ×4 (04:55→20:59)
[2017-10-15] MEDS: Lactulose Oral Soln 20 GM/30 ML UDC PO SCH (07:41)
[2017-10-15] MEDS: *HR* Amiodarone 200 MG TABLET PO SCH (07:41)
[2017-10-15] MEDS: Sennosides/Docusate Sodium TABLET PO SCH ×2 (07:41→21:01)
[2017-10-15] MEDS: Aspirin Enteric Coated 81 MG Tablet PO SCH (07:41)
--- NOTE | 2017-10-15 09:35 | Cardiothoracic Progress Note ---
Date of Encounter: 10/15/17 Time of Encounter: 09:33 - Assessment and plan (1) Spontaneous pneumothorax Current Visit: Yes Status: Acute The right spontaneous pneumothorax has increased in size on suction. The neck and chest tube was placed yesterday and the patient states that his breathing more comfortably. Chest tube #2 (right base) has a persistent air leak on suction. Both chest tubes should remain on chest tube suction until the pneumothorax completely resolves and the leaks stop. He may ambulate in the hallways off suction. The assessment and plan as outlined above was discussed with the patient and/or family members who expressed understanding and agreement. All questions were answered. - Subjective Interval history: The patient remained hemodynamically stable overnight. He is breathing comfortably. He has no complaints. Vital Signs, Last 4 Hours Temp Pulse Resp BP Pulse Ox 10/15/17 07:55 60 10/15/17 07:25 98.4 F 60 18 148/91 95 Oxgyen Flow Rate Oxygen Flow Rate (LPM) 3 Clinical Data, last 8 Hours Output, Chest Tube Drainage 45 Amount [Right Lower Lateral Chest #2] Output, Chest Tube Drainage 10 Amount [Right Lower Lateral Chest #2] Output, Chest Tube Drainage 0 Amount [Right Lower Lateral Chest #2] Output, Chest Tube Drainage 0 Amount [Right Upper Anterior Chest #1] Output, Chest Tube Drainage 0 Amount [Right Upper Anterior Chest #1] Output, Chest Tube Drainage 0 Amount [Right Upper Anterior Chest #1] Output, Urine Amount 350 Weight 10/13/17 10/14/17 10/15/17 23:59 23:59 23:59 Weight 89.4 kg 89.85 kg 90.3 kg - Physical Examination General: Conversant, No Apparent Distress Neck: No JVD, Normal carotid pulses Cardiac: Reg Rate and Rhythm, Normal S1 and S2, No Murmur Incision: No signs of infection, Dry/intact dressing Chest tubes: Minimal drainage, Air leak (Chest tube #2 (right base)) Lungs: Normal Breath Sounds, No Wheeze, Rales, Rhonchi Neuro: Alert and responsive, No focal deficits noted Vascular: Normal capillary refill Musculoskeletal: No Chest Wall Tenderness Extremities: No Clubbing, No Cyanosis, No Edema - Labs 10/11/17 04:38 10/12/17 08:34 - VTE Documentation of Mechanical Device: Intermittent pneumatic compression device Consult Discharge Plan - Plan Referrals: Eleazar Kee CNP [Primary Care Provider] - 10/26/17 11:00 am () Mansoor Cobos MD [Partnered Physician] - 11/01/17 1:15 pm Gabo Li MD [Partnered Physician] - 10/25/17 9:00 am
--- NOTE | 2017-10-15 10:25 | Internal Med Progress Note ---
<Natalie Duque - Last Filed: 10/15/17 10:34> Date of Encounter: 10/15/17 Time of Encounter: 10:23 - Assessment and plan (1) Spontaneous pneumothorax Current Visit: Yes Status: Acute Assessment and plan: Initially presented on 10/04/2017 with acute onset of shortness of breath and have a right spontaneous pneumothorax. He had a chest tube inserted which upon removal had a air leak and has subsequently had a chest tube reinserted by interventional radiology.. He is currently being followed by pulmonology and cardiology. PFTs in the outpatient setting prior to follow-up with cardiothoracic surgery for possible right thoracotomy and lung volume reduction surgery. Plan: - Continue chest tubes as per cardiothoracic surgery. Patient has persisted air leak in the right lower chest tube. Continue supplemental oxygen is needed. - Schedule outpatient PFT - Schedule follow-up with pulmonology in 2 weeks - Follow up with cardiothoracic surgery post PFT (2) COPD (chronic obstructive pulmonary disease) Current Visit: Yes Status: Chronic Assessment and plan: Stable - not in exacerbation Continue DuoNeb breathing treatment, Symbicort, O2 via [place] Qualifiers: COPD type: unspecified COPD Qualified Code(s): J44.9 - Chronic obstructive pulmonary disease, unspecified (3) Atrial fibrillation Current Visit: Yes Status: Chronic Assessment and plan: Chronic atrial fibrillation, rate controlled Rate has been well controlled during this hospitalization. Continue home dose of Amiodarone continue eliquis. Qualifiers: Atrial fibrillation type: chronic Qualified Code(s): I48.2 - Chronic atrial fibrillation (4) CAD (coronary artery disease) Current Visit: No Status: Chronic Assessment and plan: Coronary artery disease status post CABG, stable Continue Aspirin, Lipitor Initial Troponin 0.04. Repeat = 0.02 2. BNP = 154 EKG - sinus rhythm with no acute ST-T changes Echocardiogram (07/30/2016) - LVEF 50-55%, normal size and function, mild LVH, indeterminant diastolic function, normal RV size and function, severely dilated LA Qualifiers: Coronary Disease-Associated Artery/Lesion type: [place] artery [place] vs. transplanted heart: [place] heart Associated angina: without angina Qualified Code(s): I25.10 - Atherosclerotic heart disease of [place] coronary artery without angina pectoris (5) Hypertension Current Visit: No Status: Chronic Assessment and plan: Controlled. Continue home dose of lisinopril Qualifiers: Hypertension type: essential hypertension Qualified Code(s): I10 - Essential (primary) hypertension - Subjective Interval history: Patient seen and examined this morning. Patient admitted for spontaneous right pneumothorax, he had a chest tube inserted, upon removal of 1st chest tube he had a persistent air leak causing recurrence of his right pneumothorax. He subsequently had to chest tubes inserted by interventional radiology which remain in place on Ezio suction. He is being followed both by cardiothoracic surgery as well as pulmonology. This morning patient states he feels like his breathing has improved since insertion of the 2 small chest tubes. He reports that he feels more comfortable laying down at night. He is able to ambulate in the hallway with no difficulty with the chest tubes in place. His main concern today is some constipation he states he has not had a bowel movement in approximately 3 days. He is tolerating diet with no nausea or vomiting. - Constitutional Vitals: Temp Pulse Resp BP Pulse Ox 98.4 F 60 18 148/91 95 10/15/17 07:25 10/15/17 07:55 10/15/17 07:25 10/15/17 07:25 10/15/17 07:25 General appearance: Present: cooperative, A&O X 3, pleasant, no acute distress, answers questions appropriately - Head Head exam: Present: atraumatic, normocephalic Additional comments: Nasal cannula in place - ENT ENT exam: Present: mucous membranes moist - Neck Neck exam general surgery: Present: supple, trachea midline - Respiratory Respiratory exam: Present: rales (Right base), wheezes (And expiratory, right side) Additional comments: Good air movement bilaterally; chest tubes in place right lateral chest with no signs of erythema or edema. - Cardiovascular Cardiovascular exam: Present: RRR, +S1, +S2 - GI/Abdominal GI/Abdominal exam: Present: hypoactive bowel sounds, soft. Absent: distended, guarding, rebound, rigid, tenderness Internal Medicine: Result - Labs CBC & Chem 7: 10/11/17 04:38 10/12/17 08:34 - ABG Interpretation ABG results: PT/INR, D-dimer PT 15.3 Seconds (9.4-12.1) H 10/04/17 18:32 - VTE Documentation of Mechanical Device: Intermittent pneumatic compression device Consult Discharge Plan - Plan Referrals: Vidhya,Eleazar L, FISHING LURE ASSEMBLER [Primary Care Provider] - 10/26/17 11:00 am () Mansoor Cobos MD [Partnered Physician] - 11/01/17 1:15 pm Gabo Li MD [Partnered Physician] - 10/25/17 9:00 am <Wood Moreira - Last Filed: 10/15/17 17:14> Date of Encounter: 10/15/17 - Constitutional Vitals: Temp Pulse Resp BP Pulse Ox 98.4 F 58 16 140/83 97 10/15/17 15:40 10/15/17 15:40 10/15/17 16:17 10/15/17 15:40 10/15/17 16:17 Internal Medicine: Result - Labs CBC & Chem 7: 10/11/17 04:38 10/12/17 08:34 - ABG Interpretation ABG results: PT/INR, D-dimer PT 15.3 Seconds (9.4-12.1) H 10/04/17 18:32 - Attending Attestation I examined this patient and my medical decision-making was reviewed with the Resident Physician. I agree with the documented findings, disposition and treatment plan as described except to the extent set forth below.
[2017-10-15] MEDS: Budesonide/Formoterol 80/4.5 MDI IH SCH ×2 (10:47→22:26)
[2017-10-16] MEDS: *HR* HYDROcodone/Acet 10/325 mg TABLET PO PRN ×4 (00:27→19:29)
[2017-10-16] MEDS: MOM Conc 10 ML UD.LIQ PO PRN (00:27)
[2017-10-16] MEDS: Ipratropium/Albuterol Neb 3 ML IH SCH ×4 (04:42→21:55)
[2017-10-16] MEDS: Sennosides/Docusate Sodium TABLET PO SCH ×2 (07:27→22:09)
[2017-10-16] MEDS: *HR* Amiodarone 200 MG TABLET PO SCH (07:27)
[2017-10-16] MEDS: Aspirin Enteric Coated 81 MG Tablet PO SCH (07:27)
[2017-10-16] MEDS: *HR* Morphine 2 MG/ML SYRINGE IVP PRN ×2 (07:27→15:45)
[2017-10-16] MEDS: Lactulose Oral Soln 20 GM/30 ML UDC PO SCH (07:27)
--- NOTE | 2017-10-16 07:32 | Cardiothoracic Progress Note ---
Date of Encounter: 10/16/17 Time of Encounter: 07:30 - Assessment and plan (1) Spontaneous pneumothorax Current Visit: Yes Status: Acute The right spontaneous pneumothorax has increased in size on suction. The second chest tube was placed yesterday and the patient states that his breathing more comfortably. Chest tube #2 (right base) has a persistent air leak on suction. Both chest tubes should remain on chest tube suction until the pneumothorax completely resolves and the leaks stop. He may ambulate in the hallways off suction. The assessment and plan as outlined above was discussed with the patient and/or family members who expressed understanding and agreement. All questions were answered. - Subjective Interval history: The patient remained hemodynamically stable overnight. He is breathing comfortably. He has no complaints. Vital Signs, Last 4 Hours Temp Pulse Resp BP Pulse Ox 10/16/17 04:43 16 145/89 94 10/16/17 03:35 97.9 F 61 20 145/89 96 Oxgyen Flow Rate Oxygen Flow Rate (LPM) 3.5 Clinical Data, last 8 Hours Output, Chest Tube Drainage 0 Amount [Right Lower Lateral Chest #2] Output, Chest Tube Drainage 0 Amount [Right Lower Lateral Chest #2] Output, Chest Tube Drainage 0 Amount [Right Upper Anterior Chest #1] Output, Chest Tube Drainage 0 Amount [Right Upper Anterior Chest #1] Output, Urine Amount 400 Weight 10/14/17 10/15/17 10/16/17 23:59 23:59 23:59 Weight 89.85 kg 90.3 kg 77.196 kg - Physical Examination General: Conversant, No Apparent Distress Neck: No JVD, Normal carotid pulses Cardiac: Reg Rate and Rhythm, Normal S1 and S2, No Murmur Chest tubes: Minimal drainage, Air leak Lungs: Normal Breath Sounds, No Wheeze, Rales, Rhonchi Neuro: Alert and responsive, No focal deficits noted Vascular: Normal capillary refill Musculoskeletal: No Chest Wall Tenderness Extremities: No Clubbing, No Cyanosis, No Edema - Labs 10/11/17 04:38 10/12/17 08:34 - Imaging Chest Xray: image reviewed (No pneumothorax. Minimal atelectasis/infiltrates.) - VTE Documentation of Mechanical Device: Intermittent pneumatic compression device Consult Discharge Plan - Plan Referrals: Eleazar Kee, GUIDE CHANGER [Primary Care Provider] - 10/26/17 11:00 am () Mansoor Cobos MD [Partnered Physician] - 11/01/17 1:15 pm Gabo Li MD [Partnered Physician] - 10/25/17 9:00 am
[2017-10-16] MEDS: Budesonide/Formoterol 80/4.5 MDI IH SCH ×2 (07:54→21:56)
--- NOTE | 2017-10-16 11:10 | Internal Med Progress Note ---
<Natalie Duque - Last Filed: 10/16/17 11:14> Date of Encounter: 10/16/17 Time of Encounter: 11:08 - Assessment and plan (1) Spontaneous pneumothorax Current Visit: Yes Status: Acute Assessment and plan: Initially presented on 10/04/2017 with acute onset of shortness of breath and have a right spontaneous pneumothorax. He had a chest tube inserted which upon removal had a air leak and has subsequently had a chest tube reinserted by interventional radiology.. He is currently being followed by pulmonology and cardiology. PFTs in the outpatient setting prior to follow-up with cardiothoracic surgery for possible right thoracotomy and lung volume reduction surgery. Chest x-ray this morning with evidence of decreasing size of right pneumothorax. Continues to be followed by cardiothoracic surgery. Plan: - Continue chest tubes as per cardiothoracic surgery. Patient has persisted air leak in the right lower chest tube. Continue supplemental oxygen is needed. - Schedule outpatient PFT - Schedule follow-up with pulmonology in 2 weeks - Follow up with cardiothoracic surgery post PFT (2) COPD (chronic obstructive pulmonary disease) Current Visit: Yes Status: Chronic Assessment and plan: Stable - not in exacerbation Continue DuoNeb breathing treatment, Symbicort, O2 via [place] Qualifiers: COPD type: unspecified COPD Qualified Code(s): J44.9 - Chronic obstructive pulmonary disease, unspecified (3) Atrial fibrillation Current Visit: Yes Status: Chronic Assessment and plan: Chronic atrial fibrillation, rate controlled Rate has been well controlled during this hospitalization. Continue home dose of Amiodarone continue eliquis. Qualifiers: Atrial fibrillation type: chronic Qualified Code(s): I48.2 - Chronic atrial fibrillation (4) CAD (coronary artery disease) Current Visit: No Status: Chronic Assessment and plan: Coronary artery disease status post CABG, stable Continue Aspirin, Lipitor Initial Troponin 0.04. Repeat = 0.02 2. BNP = 154 EKG - sinus rhythm with no acute ST-T changes Echocardiogram (07/30/2016) - LVEF 50-55%, normal size and function, mild LVH, indeterminant diastolic function, normal RV size and function, severely dilated LA Qualifiers: Coronary Disease-Associated Artery/Lesion type: [place] artery [place] vs. transplanted heart: [place] heart Associated angina: without angina Qualified Code(s): I25.10 - Atherosclerotic heart disease of [place] coronary artery without angina pectoris (5) Hypertension Current Visit: No Status: Chronic Assessment and plan: Controlled. Continue home dose of lisinopril Qualifiers: Hypertension type: essential hypertension Qualified Code(s): I10 - Essential (primary) hypertension - Subjective Interval history: Patient seen and examined this morning. Patient admitted for spontaneous right pneumothorax, he had a chest tube inserted, upon removal of 1st chest tube he had a persistent air leak causing recurrence of his right pneumothorax. He subsequently had to chest tubes inserted by interventional radiology which remain in place on Ezio suction. He is being followed both by cardiothoracic surgery as well as pulmonology. This morning patient states he feels like his breathing has improved since insertion of the 2 small chest tubes. He reports that he feels more comfortable laying down at night. He is able to ambulate in the hallway with no difficulty with the chest tubes in place. He reports he had some prune juice yesterday and although he has not yet had a bowel movement this morning he is doubtful hope is that usually helps him. His stomach does not feel distended or painful. He is able to tolerate his diet without any nausea or vomiting. He states that his work informed him that he will have to be placed on disability and is requesting help with that. He has no other acute concerns or complaints at this time. - Constitutional Vitals: Temp Pulse Resp BP Pulse Ox 98.1 F 57 20 154/92 94 10/16/17 07:15 10/16/17 07:48 10/16/17 10:13 10/16/17 07:15 10/16/17 10:13 General appearance: Present: cooperative, A&O X 3, pleasant, no acute distress, answers questions appropriately - Head Head exam: Present: atraumatic, normocephalic Additional comments: Nasal cannula in place - Neck Neck exam general surgery: Present: supple, trachea midline - Respiratory Respiratory exam: Present: rales (Right lower lobe), wheezes (Right side). Absent: rhonchi Additional comments: Good air movement bilaterally - Cardiovascular Cardiovascular exam: Present: RRR, +S1, +S2. Absent: diastolic murmur, systolic murmur - GI/Abdominal GI/Abdominal exam: Present: hypoactive bowel sounds, soft. Absent: distended, firm, guarding, rigid, tenderness - Extremities Exam Extremities exam: Present: normal capillary refill. Absent: pedal edema - Back Exam Additional comments: [address] right lateral thoracic cage, no erythema are induration felt - Skin Skin exam: Present: dry, intact, warm Internal Medicine: Result - Labs CBC & Chem 7: 10/11/17 04:38 10/12/17 08:34 - ABG Interpretation ABG results: PT/INR, D-dimer PT 15.3 Seconds (9.4-12.1) H 10/04/17 18:32 - Impressions Impressions Chest X-Ray 10/16/17 06:00 IMPRESSION: Stable position of two right hemithorax pigtail pleural catheters. Minimal residual right pneumothorax. D/ / 10/16/2017 08:18:04 Goran Campbell MD / earnold Interpreting Provider: Goran Campbell MD - VTE Documentation of Mechanical Device: Venous foot pump, device Consult Discharge Plan - Plan Referrals: Eleazar Kee CNP [Primary Care Provider] - 10/26/17 11:00 am () Mansoor Cobos MD [Partnered Physician] - 11/01/17 1:15 pm Gabo Li MD [Partnered Physician] - 10/25/17 9:00 am <Efrain Craig - Last Filed: 10/16/17 18:04> Date of Encounter: 10/16/17 - Assessment and plan (1) Acute and chronic respiratory failure with hypoxia Current Visit: Yes Status: Chronic Assessment and plan: Supplemental oxygen. (2) Spontaneous pneumothorax Current Visit: Yes Status: Acute (3) COPD (chronic obstructive pulmonary disease) Current Visit: Yes Status: Chronic Qualifiers: COPD type: emphysema Emphysema type: centrilobular Qualified Code(s): J43.2 - Centrilobular emphysema (4) Atrial fibrillation Current Visit: Yes Status: Chronic Qualifiers: Atrial fibrillation type: chronic Qualified Code(s): I48.2 - Chronic atrial fibrillation (5) Chronic systolic CHF (congestive heart failure) Current Visit: No Status: Chronic (6) Hypertension Current Visit: No Status: Chronic Qualifiers: Hypertension type: essential hypertension Qualified Code(s): I10 - Essential (primary) hypertension - Constitutional Vitals: Temp Pulse Resp BP Pulse Ox 97.8 F 67 16 134/77 96 10/16/17 15:31 10/16/17 15:31 10/16/17 15:38 10/16/17 15:31 10/16/17 15:51 Internal Medicine: Result - Labs CBC & Chem 7: 10/11/17 04:38 10/12/17 08:34 - ABG Interpretation ABG results: PT/INR, D-dimer PT 15.3 Seconds (9.4-12.1) H 10/04/17 18:32 - Impressions Impressions Chest X-Ray 10/16/17 06:00 IMPRESSION: Stable position of two right hemithorax pigtail pleural catheters. Minimal residual right pneumothorax. D/ / 10/16/2017 08:18:04 Goran Campbell MD / earnold Interpreting Provider: Goran Campbell MD - Attending Attestation I examined this patient and my medical decision-making was reviewed with the Resident Physician on 10/16/17. I agree with the documented findings, disposition and treatment plan as described except to the extent set forth below. Mr Johnson is currently admitted for spontaneous pneumothorax. He has [address] He remains moderate to high risk due to potential for worsening respiratory status. Mr Johnson feels OK. Pain is tolerable. No fever or chills. Has been able to get up and walk around some. No GI issues or new problems overnight. Exam Alert. Comfortable Mucus membranes dry Heart reg Lungs with crackles R base. Abd soft No edema I/P 1. PTX - chest tubes in place. Further plan per CTS 2. A fib 3. COPD Further diagnoses and plan as above.
[2017-10-16] MEDS ORDERED: Lactulose Oral Soln 20 GM/30 ML UDC PO ONE (11:29)
[2017-10-17] MEDS: *HR* HYDROcodone/Acet 10/325 mg TABLET PO PRN ×2 (01:55→07:42)
[2017-10-17] MEDS: *HR* Morphine 2 MG/ML SYRINGE IVP PRN ×4 (01:59→20:41)
[2017-10-17] MEDS: Ipratropium/Albuterol Neb 3 ML IH SCH ×4 (04:12→22:00)
[2017-10-17 07:05] LABS: Hematocrit 31.3 % (37.5-50.1); Hemoglobin 9.7 g/dL (12.9-16.9); Mean Corpuscular Hemoglobin 27.4 pg (28.0-33.3); Mean Corpuscular Volume 88.4 fL (83.0-100.0); Mean Platelet Volume 10.3 fL (9.4-12.4); Platelet Count 289 K/mcL (140-400); Red Blood Count 3.54 M/mcL (4.19-5.50); Red Cell Distribution Width 14.9 % (11.5-14.5)
[2017-10-17 07:18] LABS: BUN/Creatinine Ratio 21 (6-26); Blood Urea Nitrogen 18 mg/dL (8-26); Calcium 9.2 mg/dL (8.6-10.8); Carbon Dioxide 27 mEq/L (19-29); Chloride 104 mEq/L (98-109); Glucose 99 mg/dL (70-99); Magnesium 1.9 mg/dL (1.6-2.6); Osmolality,Calculated 294 (280-300); Phosphorous 3.9 mg/dL (2.3-4.7); Potassium 4.8 mEq/L (3.5-4.5); Sodium 141 mEq/L (136-145); eGFR For African Americans > 60 (> 60); eGFR For Non-African Americans > 60 (> 60)
--- NOTE | 2017-10-17 07:36 | Cardiothoracic Progress Note ---
Date of Encounter: 10/17/17 Time of Encounter: 07:33 - Assessment and plan (1) Spontaneous pneumothorax Current Visit: Yes Status: Acute The patient has remained hemodynamically stable and is breathing comfortably on 3 L supplemental oxygen. Chest tube #1 has minimal drainage and no air leak while chest tube #2 continues to have a small air leak. The chest x-ray shows no change in the small right hydropneumothorax. The chest tubes will be placed to water suction today and a chest x-ray repeated in the morning. If there is no change in the size of the right hydropneumothorax, chest tube #1 could be removed and a Heimlich valve placed on chest tube #2. The patient could then be discharged home and return to the office when the air leak in chest tube #2 stops. The assessment and plan as outlined above was discussed with the patient and/or family members who expressed understanding and agreement. All questions were answered. - Subjective Interval history: The patient remained hemodynamically stable overnight. He is breathing comfortably. He has no complaints. Vital Signs, Last 4 Hours Temp Pulse Resp BP Pulse Ox 10/17/17 05:05 98.0 F 54 18 129/70 92 10/17/17 04:13 14 98 Oxgyen Flow Rate Oxygen Flow Rate (LPM) 3 Clinical Data, last 8 Hours Output, Urine Amount 200 Output, Urine Amount 225 Output, Urine Amount 400 Weight 10/15/17 10/16/17 10/17/17 23:59 23:59 23:59 Weight 90.3 kg 77.196 kg 77.5 kg - Physical Examination General: Conversant, No Apparent Distress Neck: No JVD, Normal carotid pulses Cardiac: Reg Rate and Rhythm, Normal S1 and S2, No Murmur Incision: No signs of infection, Dry/intact dressing Chest tubes: Minimal drainage, Air leak (Chest tube #2.) Lungs: Normal Breath Sounds, No Wheeze, Rales, Rhonchi Neuro: Alert and responsive, No focal deficits noted Vascular: Normal capillary refill Extremities: No Clubbing, No Cyanosis, No Edema - Labs 10/17/17 06:38 10/17/17 06:38 Lab Results, Last 24 hours 10/17/17 10/17/17 06:38 06:38 WBC 11.4 H Hgb 9.7 L Hct 31.3 L Plt Count 289 Sodium 141 Potassium 4.8 H Chloride 104 Carbon Dioxide 27 BUN 18 Creatinine 0.85 Glucose 99 Calcium 9.2 Magnesium 1.9 - Imaging Chest Xray: image reviewed (No change in small right hydropneumothorax.) - VTE Documentation of Mechanical Device: Venous foot pump, device Consult Discharge Plan - Plan Referrals: Eleazar eKe CNP [Primary Care Provider] - 10/26/17 11:00 am () Mansoor Cobos MD [Partnered Physician] - 11/01/17 1:15 pm Gabo Li MD [Partnered Physician] - 10/25/17 9:00 am
[2017-10-17] MEDS: Sennosides/Docusate Sodium TABLET PO SCH ×2 (07:42→20:41)
[2017-10-17] MEDS: *HR* Amiodarone 200 MG TABLET PO SCH (07:42)
[2017-10-17] MEDS: Aspirin Enteric Coated 81 MG Tablet PO SCH (07:42)
[2017-10-17] MEDS: Lactulose Oral Soln 20 GM/30 ML UDC PO SCH (07:50)
--- NOTE | 2017-10-17 09:05 | Internal Med Progress Note ---
<Patrice Monte - Last Filed: 10/17/17 09:03> Date of Encounter: 10/17/17 Time of Encounter: 09:03 - Assessment and plan (1) Spontaneous pneumothorax Current Visit: Yes Status: Acute Assessment and plan: Initially presented on 10/04/2017 with acute onset of shortness of breath and have a right spontaneous pneumothorax. He had a chest tube inserted which upon removal had a air leak and has subsequently had a chest tube reinserted by interventional radiology. He is currently being followed by pulmonology and cardiology. PFTs in the outpatient setting prior to follow-up with cardiothoracic surgery for possible right thoracotomy and lung volume reduction surgery. Chest x-ray this morning with evidence of decreasing size of right pneumothorax. Continues to be followed by cardiothoracic surgery. 10/17: Patient stable this morning, both chest x-rays on suction without complication. Review of cardiothoracic node demonstrates patient may have right upper chest tube discontinued tomorrow if stable and possible discharge with right lower chest tube on water suction. Plan for repeat chest x-ray tomorrow morning. Plan: - Continue chest tubes as per cardiothoracic surgery. Patient has persisted air leak in the right lower chest tube. Continue supplemental oxygen is needed. - Schedule outpatient PFT - Schedule follow-up with pulmonology in 2 weeks - Follow up with cardiothoracic surgery post PFT (2) COPD (chronic obstructive pulmonary disease) Current Visit: Yes Status: Chronic Assessment and plan: Stable - not in exacerbation Continue DuoNeb breathing treatment, Symbicort, O2 via [place] Qualifiers: COPD type: emphysema Emphysema type: centrilobular Qualified Code(s): J43.2 - Centrilobular emphysema (3) Hypertension Current Visit: No Status: Chronic Assessment and plan: Controlled. Continue home dose of lisinopril Qualifiers: Hypertension type: essential hypertension Qualified Code(s): I10 - Essential (primary) hypertension (4) CAD (coronary artery disease) Current Visit: No Status: Chronic Assessment and plan: Coronary artery disease status post CABG, stable Continue Aspirin, Lipitor Initial Troponin 0.04. Repeat = 0.02 2. BNP = 154 EKG - sinus rhythm with no acute ST-T changes Echocardiogram (07/30/2016) - LVEF 50-55%, normal size and function, mild LVH, indeterminant diastolic function, normal RV size and function, severely dilated LA Qualifiers: Coronary Disease-Associated Artery/Lesion type: [place] artery [place] vs. transplanted heart: [place] heart Associated angina: without angina Qualified Code(s): I25.10 - Atherosclerotic heart disease of [place] coronary artery without angina pectoris (5) Atrial fibrillation Current Visit: Yes Status: Chronic Assessment and plan: Chronic atrial fibrillation, rate controlled Rate has been well controlled during this hospitalization. Continue home dose of Amiodarone continue eliquis. Qualifiers: Atrial fibrillation type: chronic Qualified Code(s): I48.2 - Chronic atrial fibrillation (6) DVT prophylaxis Current Visit: Yes Status: Acute Assessment and plan: Heparin subcutaneous - Subjective Interval history: 62-year-old male seen and evaluated the patient bedside this morning. Patient is laying in bed comfortably without complaints. He denies any pains discomforts faculty with eating or any other concerns at this time. He spoke with cardiothoracic surgery this morning and understands the plan going forward. - Constitutional Vitals: Temp Pulse Resp BP Pulse Ox 98.0 F 54 20 138/81 94 10/17/17 07:40 10/17/17 07:40 10/17/17 07:40 10/17/17 07:40 10/17/17 07:40 General appearance: Present: cooperative, A&O X 3, pleasant, no acute distress, answers questions appropriately - Head Head exam: Present: atraumatic, normocephalic - Eye Eye exam: Present: PERRL, conjuntiva pink, sclera anicteric Pupils: Present: PERRL - Neck Neck exam general surgery: Present: supple, trachea midline. Absent: lymphadenopathy - Respiratory Respiratory exam: Present: CTAB. Absent: accessory muscle use, rales, rhonchi, wheezes Additional comments: 2 chest tubes right chest in place on suction. - Cardiovascular Cardiovascular exam: Present: RRR, +S1, +S2. Absent: diastolic murmur, gallop, rubs, systolic murmur - GI/Abdominal GI/Abdominal exam: Present: normal bowel sounds, soft, no peritoneal signs. Absent: distended, tenderness - Extremities Exam Extremities exam: Present: warm, radial pulses palpable and symmetrical. Absent : calf tenderness, cyanotic, pedal edema - Neurological Exam Neurological exam: Present: CN II-XII intact, oriented X3, no focal deficits. Absent: pronater drift, facial droop, speech deficit - Skin Skin exam: Present: dry, intact Internal Medicine: Result - Labs CBC & Chem 7: 10/17/17 06:38 10/17/17 06:38 Labs: Short CBC 10/17/17 Range/Units 06:38 WBC 11.4 H (4.3-11.1) K/mcL Hgb 9.7 L (12.9-16.9) g/dL Hct 31.3 L (37.5-50.1) % Plt Count 289 (140-400) K/mcL BMP 10/17/17 06:38 Sodium 141 Potassium 4.8 H Chloride 104 Carbon Dioxide 27 BUN 18 Creatinine 0.85 Glucose 99 Calcium 9.2 - ABG Interpretation ABG results: PT/INR, D-dimer PT 15.3 Seconds (9.4-12.1) H 10/04/17 18:32 - Impressions Impressions Chest X-Ray 10/16/17 06:00 IMPRESSION: Stable position of two right hemithorax pigtail pleural catheters. Minimal residual right pneumothorax. D/ / 10/16/2017 08:18:04 Goran Campbell MD / [facility] Interpreting Provider: Goran Campbell MD Chest X-Ray 10/17/17 06:00 IMPRESSION: Persistent small right-sided hydropneumothorax with two right-sided chest tubes in place. D/ / 10/17/2017 08:13:55 Russel Asher MD / [facility] Interpreting Provider: Russel Asher MD - VTE Documentation of Mechanical Device: Venous foot pump, device Consult Discharge Plan - Plan Referrals: Eleazar Kee CNP [Primary Care Provider] - 10/26/17 11:00 am () Mansoor Cobos MD [Partnered Physician] - 11/01/17 1:15 pm Gaob Li MD [Partnered Physician] - 10/25/17 9:00 am <Efrain Craig - Last Filed: 10/17/17 18:02> Date of Encounter: 10/17/17 - Assessment and plan (1) Acute and chronic respiratory failure with hypoxia Current Visit: Yes Status: Chronic (2) Spontaneous pneumothorax Current Visit: Yes Status: Acute (3) COPD (chronic obstructive pulmonary disease) Current Visit: Yes Status: Chronic Qualifiers: COPD type: emphysema Emphysema type: centrilobular Qualified Code(s): J43.2 - Centrilobular emphysema (4) Atrial fibrillation Current Visit: Yes Status: Chronic Qualifiers: Atrial fibrillation type: chronic Qualified Code(s): I48.2 - Chronic atrial fibrillation (5) Chronic systolic CHF (congestive heart failure) Current Visit: No Status: Chronic (6) Hypertension Current Visit: No Status: Chronic Qualifiers: Hypertension type: essential hypertension Qualified Code(s): I10 - Essential (primary) hypertension - Constitutional Vitals: Temp Pulse Resp BP Pulse Ox 98.2 F 70 18 149/83 96 10/17/17 16:26 10/17/17 16:26 10/17/17 16:26 10/17/17 16:26 10/17/17 16:26 Internal Medicine: Result - Labs CBC & Chem 7: 10/17/17 06:38 10/17/17 06:38 Labs: Short CBC 10/17/17 Range/Units 06:38 WBC 11.4 H (4.3-11.1) K/mcL Hgb 9.7 L (12.9-16.9) g/dL Hct 31.3 L (37.5-50.1) % Plt Count 289 (140-400) K/mcL BMP 10/17/17 06:38 Sodium 141 Potassium 4.8 H Chloride 104 Carbon Dioxide 27 BUN 18 Creatinine 0.85 Glucose 99 Calcium 9.2 - ABG Interpretation ABG results: PT/INR, D-dimer PT 15.3 Seconds (9.4-12.1) H 10/04/17 18:32 - Impressions Impressions Chest X-Ray 10/17/17 06:00 IMPRESSION: Persistent small right-sided hydropneumothorax with two right-sided chest tubes in place. D/ 10/17/2017 08:13:55 Russel Asher MD / [facility] Interpreting Provider: Russel Asher MD - Attending Attestation I examined this patient and my medical decision-making was reviewed with the Resident Physician on 10/17/17. I agree with the documented findings, disposition and treatment plan as described except to the extent set forth below. Mr Johnson is currently admitted for PTX. He remains moderate to high risk due to potential for worsening respiratory status. Mr Johnson feels OK. He has been up walking around. No fever or chills. Pain is tolerable. No GI issues. Exam Alert. Comfortable Mucus membranes dry Heart irreg Rales on R I/P 1. PTX 2. COPD Further diagnoses and plan as above.
[2017-10-17] MEDS: Budesonide/Formoterol 80/4.5 MDI IH SCH ×2 (10:59→22:00)
[2017-10-18] MEDS: *HR* Morphine 2 MG/ML SYRINGE IVP PRN ×5 (02:38→21:48)
[2017-10-18] MEDS: Ipratropium/Albuterol Neb 3 ML IH SCH ×4 (03:37→22:26)
[2017-10-18] MEDS: *HR* HYDROcodone/Acet 10/325 mg TABLET PO PRN ×5 (03:52→21:48)
--- NOTE | 2017-10-18 07:35 | Cardiothoracic Progress Note ---
Date of Encounter: 10/18/17 Time of Encounter: 07:32 - Assessment and plan (1) Spontaneous pneumothorax Current Visit: Yes Status: Acute The patient has remained hemodynamically stable and is breathing comfortably on 3 L supplemental oxygen. Chest tube #1 has minimal drainage and no air leak while chest tube #2 continues to have a small air leak. The chest x-ray shows an increased size of the right pneumothorax on waterseal. Unfortunately it does not appear that the air leak will resolve with chest tube management and that the pneumothorax will persist without suction. This may necessitate a right thoracotomy and bleb resection with mechanical pleurodesis for a prolonged air leak. I will discuss the case with Dr. Mansoor Cobos and possibly schedule the patient for the procedure in the morning. The assessment and plan as outlined above was discussed with the patient and/or family members who expressed understanding and agreement. All questions were answered. - Subjective Interval history: The patient remained hemodynamically stable overnight. He is breathing comfortably. He has no complaints. Vital Signs, Last 4 Hours Temp Pulse Resp BP Pulse Ox 10/18/17 07:06 98.1 F 62 16 151/84 91 10/18/17 03:41 98.7 F 75 18 149/90 93 10/18/17 03:37 16 93 Oxgyen Flow Rate Oxygen Flow Rate (LPM) 2 Clinical Data, last 8 Hours Output, Urine Amount 425 Weight 10/16/17 10/17/17 10/18/17 23:59 23:59 23:59 Weight 77.196 kg 77.5 kg - Physical Examination General: Conversant, No Apparent Distress Neck: No JVD, Normal carotid pulses Cardiac: Reg Rate and Rhythm, Normal S1 and S2, No Murmur Incision: No signs of infection, Dry/intact dressing Chest tubes: Minimal drainage, Air leak Lungs: Normal Breath Sounds, No Wheeze, Rales, Rhonchi Neuro: Alert and responsive, No focal deficits noted Vascular: Normal capillary refill Musculoskeletal: No Chest Wall Tenderness Extremities: No Clubbing, No Cyanosis, No Edema - Labs 10/17/17 06:38 10/17/17 06:38 Lab Results, Last 24 hours 10/17/17 06:38 WBC 11.4 H Hgb 9.7 L Hct 31.3 L Plt Count 289 - Imaging Chest Xray: report reviewed (Increased size of right pneumothorax on waterseal.) - VTE Documentation of Mechanical Device: Intermittent pneumatic compression device Consult Discharge Plan - Plan Referrals: Eleazar Kee CNP [Primary Care Provider] - 10/26/17 11:00 am () Mansoor Cobos MD [Partnered Physician] - 11/01/17 1:15 pm Gabo Li MD [Partnered Physician] - 10/25/17 9:00 am
[2017-10-18] MEDS: Aspirin Enteric Coated 81 MG Tablet PO SCH (07:54)
[2017-10-18] MEDS: Lactulose Oral Soln 20 GM/30 ML UDC PO SCH (07:54)
[2017-10-18] MEDS: *HR* Amiodarone 200 MG TABLET PO SCH (07:54)
[2017-10-18] MEDS: Sennosides/Docusate Sodium TABLET PO SCH ×2 (07:54→21:49)
[2017-10-18] MEDS: Budesonide/Formoterol 80/4.5 MDI IH SCH ×2 (09:41→22:26)
--- NOTE | 2017-10-18 09:57 | Internal Med Progress Note ---
<Natalie Duque - Last Filed: 10/18/17 09:55> Date of Encounter: 10/18/17 Time of Encounter: 09:55 - Assessment and plan (1) Spontaneous pneumothorax Current Visit: Yes Status: Acute Assessment and plan: Initially presented on 10/04/2017 with acute onset of shortness of breath and have a right spontaneous pneumothorax. He had a chest tube inserted which upon removal had a air leak and has subsequently had a chest tube reinserted by interventional radiology. He is currently being followed by pulmonology and cardiology. PFTs in the outpatient setting prior to follow-up with cardiothoracic surgery for possible right thoracotomy and lung volume reduction surgery. Chest x-ray this morning with evidence of increasing right pneumothorax. 10/17: Patient stable this morning, both chest x-rays on suction without complication. Review of cardiothoracic node demonstrates patient may have right upper chest tube discontinued tomorrow if stable and possible discharge with right lower chest tube on water suction. Plan for repeat chest x-ray tomorrow morning. 10/18: patient remains stable. Chest tubes on water seal since yesterday. Chest x-ray with increasing right lower pneumothorax. Review of cardiothoracic surgery note with indication of possible right thoracotomy tomorrow versus sending patient home with Heimlich valve since he remains with a persistent air leak in the right lower lobe. Will follow for Dr. Cobos's recommendations. Plan: - Continue chest tubes as per cardiothoracic surgery. Patient has persisted air leak in the right lower chest tube. Continue supplemental oxygen is needed. - Schedule outpatient PFT - Schedule follow-up with pulmonology in 2 weeks - Follow up with cardiothoracic surgery post PFT (2) COPD (chronic obstructive pulmonary disease) Current Visit: Yes Status: Chronic Assessment and plan: Stable - not in exacerbation Continue DuoNeb breathing treatment, Symbicort, O2 via [place] Qualifiers: COPD type: unspecified COPD Qualified Code(s): J44.9 - Chronic obstructive pulmonary disease, unspecified (3) Atrial fibrillation Current Visit: Yes Status: Chronic Assessment and plan: Chronic atrial fibrillation, rate controlled Rate has been well controlled during this hospitalization. Continue home dose of Amiodarone continue eliquis. Qualifiers: Atrial fibrillation type: chronic Qualified Code(s): I48.2 - Chronic atrial fibrillation (4) CAD (coronary artery disease) Current Visit: No Status: Chronic Assessment and plan: Coronary artery disease status post CABG, stable Continue Aspirin, Lipitor Initial Troponin 0.04. Repeat = 0.02 2. BNP = 154 EKG - sinus rhythm with no acute ST-T changes Echocardiogram (07/30/2016) - LVEF 50-55%, normal size and function, mild LVH, indeterminant diastolic function, normal RV size and function, severely dilated LA Qualifiers: Coronary Disease-Associated Artery/Lesion type: [place] artery [place] vs. transplanted heart: [place] heart Associated angina: without angina Qualified Code(s): I25.10 - Atherosclerotic heart disease of [place] coronary artery without angina pectoris (5) Hypertension Current Visit: No Status: Chronic Assessment and plan: Controlled. Continue home dose of lisinopril Qualifiers: Hypertension type: essential hypertension Qualified Code(s): I10 - Essential (primary) hypertension - Subjective Interval history: Patient seen and examined this morning. Patient admitted for spontaneous right pneumothorax, he had a chest tube inserted, upon removal of 1st chest tube he had a persistent air leak causing recurrence of his right pneumothorax. He subsequently had to chest tubes inserted by interventional radiology which remain in place on Ezio suction. He is being followed both by cardiothoracic surgery as well as pulmonology. This morning patient states he feels like his breathing has improved since insertion of the 2 small chest tubes. He reports that he feels more comfortable laying down at night. He is able to ambulate in the hallway with no difficulty with the chest tubes in place. He states he spoke with Dr. Blackwell this morning and there is mention of possible surgery with right thoracotomy tomorrow with Dr. Cobos. He remains having a persistent air leak in his right lower chest tube. He has no complaints at this time - Constitutional Vitals: Temp Pulse Resp BP Pulse Ox 98.1 F 60 16 151/84 91 10/18/17 07:06 10/18/17 07:45 10/18/17 07:06 10/18/17 07:06 10/18/17 07:06 General appearance: Present: cooperative, A&O X 3, pleasant, no acute distress, answers questions appropriately - Head Head exam: Present: atraumatic, normocephalic Additional comments: Nasal cannula in place - ENT ENT exam: Present: mucous membranes moist - Neck Neck exam general surgery: Present: supple, trachea midline - Respiratory Respiratory exam: Present: decreased breath sounds (Right lower lobe). Absent: rales, rhonchi, stridor, wheezes Additional comments: Good air movement bilaterally - Cardiovascular Cardiovascular exam: Present: RRR, +S1, +S2. Absent: gallop, rubs - GI/Abdominal GI/Abdominal exam: Present: normal bowel sounds, soft. Absent: distended, firm , guarding, rebound, rigid, tenderness - Extremities Exam Extremities exam: Present: normal capillary refill. Absent: pedal edema - Skin Skin exam: Present: dry, warm Internal Medicine: Result - Labs CBC & Chem 7: 10/17/17 06:38 10/17/17 06:38 - ABG Interpretation ABG results: PT/INR, D-dimer PT 15.3 Seconds (9.4-12.1) H 10/04/17 18:32 - Impressions Impressions Chest X-Ray 10/18/17 06:00 IMPRESSION: 1. Increase in size of right basilar pneumothorax, now measuring 2.3 cm. Stable apical component measuring 6 mm. No evidence of mediastinal shift. 2. Right chest tubes remain present. The findings were sent to the Radiology Results Communication Center at 6:55 am on 10/18/2017to be communicated to a licensed caregiver. D/ / Re Lorenzo MD / Re Lorenzo MD Interpreting Provider: Re Lorenzo MD - VTE Documentation of Mechanical Device: Intermittent pneumatic compression device Consult Discharge Plan - Plan Referrals: Eleazar Kee CNP [Primary Care Provider] - 10/26/17 11:00 am () Mansoor Cobos MD [Partnered Physician] - 11/01/17 1:15 pm Gabo Li MD [Partnered Physician] - 10/25/17 9:00 am <Efrain Craig - Last Filed: 10/18/17 17:42> Date of Encounter: 10/18/17 - Assessment and plan (1) Acute and chronic respiratory failure with hypoxia Current Visit: Yes Status: Chronic (2) Spontaneous pneumothorax Current Visit: Yes Status: Acute (3) COPD (chronic obstructive pulmonary disease) Current Visit: Yes Status: Chronic Qualifiers: COPD type: emphysema Emphysema type: centrilobular Qualified Code(s): J43.2 - Centrilobular emphysema (4) Atrial fibrillation Current Visit: Yes Status: Chronic Qualifiers: Atrial fibrillation type: chronic Qualified Code(s): I48.2 - Chronic atrial fibrillation (5) Chronic systolic CHF (congestive heart failure) Current Visit: No Status: Chronic (6) Hypertension Current Visit: No Status: Chronic Qualifiers: Hypertension type: essential hypertension Qualified Code(s): I10 - Essential (primary) hypertension - Constitutional Vitals: Temp Pulse Resp BP Pulse Ox 97.6 F 63 17 119/95 100 10/18/17 15:56 10/18/17 15:56 10/18/17 15:56 10/18/17 15:56 10/18/17 15:56 Internal Medicine: Result - Labs CBC & Chem 7: 10/17/17 06:38 10/17/17 06:38 - ABG Interpretation ABG results: PT/INR, D-dimer PT 15.3 Seconds (9.4-12.1) H 10/04/17 18:32 - Impressions Impressions Chest X-Ray 10/18/17 06:00 IMPRESSION: 1. Increase in size of right basilar pneumothorax, now measuring 2.3 cm. Stable apical component measuring 6 mm. No evidence of mediastinal shift. 2. Right chest tubes remain present. The findings were sent to the Radiology Results Communication Center at 6:55 am on 10/18/2017to be communicated to a licensed caregiver. D/ / Re Lorenzo MD / Re Lorenzo MD Interpreting Provider: Re Lorenzo MD - Attending Attestation I examined this patient and my medical decision-making was reviewed with the Resident Physician on 10/18/17. I agree with the documented findings, disposition and treatment plan as described except to the extent set forth below. Mr Johnson is currently admitted for acute R spontaneous PTX and COPD. He remains moderate to high risk due to potential for worsening respiratory status. Mr Alex is depressed today. He had increase in PTX while on water seal. He will need to have thoracotomy and will be done tomorrow. Pain is controlled at this time. No fever or chills. Up and walking without difficulty. Exam Alert. Comfortable Mucus membranes dry Heart reg No wheeze. Some rales noted. Abd soft I/P 1. PTX - thoracotomy tomorrow 2. COPD Further diagnoses and plan as above.
--- NOTE | 2017-10-18 10:44 | Anesthesia Evaluation PreOp ---
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 History: Denies Any Significant HX Other Medical History: Denies Any Significant HX Anesthesia History: No Prior Anesthetic Complications, Past Anesthesia (CABG, hernia) Alcohol Use: none Drug use: marijuana Medications and Allergies Aspirin [Adult Low Dose Aspirin EC] 81 mg PO DAILY 02/02/16 [History] Atorvastatin Calcium [Lipitor] 80 mg PO DAILY 02/02/16 [History] HYDROcodone/Acet 10/325 mg [Hominy 10-325 mg] 1 tab PO Q6HR PRN 07/30/16 [History ] Nitroglycerin [Nitrostat] 0.4 mg SL AD PRN 07/30/16 [History] Amiodarone [Cordarone] 200 mg PO DAILY 04/22/17 [History] Amlodipine Besylate [Amlodipine Besylate] 10 mg PO DAILY 10/05/17 [History] Apixaban [Eliquis] 5 mg PO BID 10/05/17 [History] Budesonide/Formoterol 80/4.5 [Symbicort 80/4.5] 2 puff IH BID 10/05/17 [History ] Calcium Polycarbophil [Fibercon] 625 mg PO BID PRN 10/05/17 [History] Ipratropium/Albuterol Neb [Duoneb] 3 ml IH QID 10/05/17 [History] Levalbuterol HCl [Xopenex] 0.63 mg IH Q8H 10/05/17 [History] Lisinopril [Zestril] 10 mg PO BID 10/05/17 [History] Metoprolol [Lopressor] 12.5 mg PO BID 10/05/17 [History] Tiotropium [Spiriva] 18 mcg IH DAILY 10/05/17 [History] 3 Allergy/AdvReac Type Severity Reaction Status Date / Time No Known Allergies Allergy Verified 10/05/17 09:26 - Meds/Allergy Pre-op Review Medications Reviewed: Yes Allergies Reviewed: Yes Beta Blockers on Current Med List: Yes Anesthesia Results - Labs 10/17/17 06:38 10/17/17 06:38 - Imaging EKG: report reviewed (Sinus rhythm with a PAC Nonspecific ST-T changes) Additional studies: CT Chest: IMPRESSION: 1. Small right anterior pneumothorax in spite of the presence of a right chest tube. 2. Extensive subcutaneous emphysema on the right. 3. Severe emphysema. 4. Consolidative changes in the right base and mild atelectatic changes in the left base. Echo 2016: Impressions: LVEF 50-55%. Normal LV chamber size and function. Mild concentric left ventricular hypertrophy. Atypical septal motion consistent with post-operative status. Indeterminate diastolic function. Normal right ventricular structure and function. Severely dilated left atrium. Mild-moderate mitral regurgitation. No evidence of pulmonary hypertension. Anesthesia Exam Selected Entries 10/19/17 02:56 Temperature 98.3 F Pulse Rate 62 Respiratory Rate 18 Blood Pressure 137/83 O2 Sat by Pulse Oximetry 97 Oxygen Delivery Method Nasal Cannula Weight: 78kg NPO (# of Hours): 8 - HEENT Pupil (Motor): EOMI Mallampati: II Teeth: Edentulous Oral Opening: Greater than 3 - AFTER SCHOOL PROGRAM COORDINATOR LOC: Oriented AFTER SCHOOL PROGRAM COORDINATOR Motor: Normal RUE, Normal LUE, Normal RLE, Normal LLE, Normal Face AFTER SCHOOL PROGRAM COORDINATOR Sensory: Normal: RUE, LUE, RLE, LLE, Face - Cardiac Rhythm: Regular Murmur: None - Pulmonary Breath Sounds: bilateral Clear Respiratory Effort: Asymmetrical (decreased on right) Anesthesia Assess/Plan ASA Score: 3 Modified Stanley Scale for Level of Consciousness: Cooperative, oriented, and tranquil Anesthetic Plan: General Monitoring Plan: Standard Monitors, A-Line Recovery Plan: ICU (Discussed GA, a-line and epidural. Agrees to proceed.)
[2017-10-18] MEDS: Chlorhexidine Rinse 15 ML MOUTHWASH MM SCH ×2 (11:56→21:50)
[2017-10-19] MEDS: *HR* HYDROcodone/Acet 10/325 mg TABLET PO PRN ×3 (03:12→22:13)
[2017-10-19] MEDS: *HR* Morphine 2 MG/ML SYRINGE IVP PRN ×6 (03:13→22:35)
[2017-10-19] MEDS: Ipratropium/Albuterol Neb 3 ML IH SCH ×4 (03:25→21:38)
[2017-10-19] MEDS ORDERED: *HR* Phenylephrine 10 MG/ML VIAL ONE (06:23)
[2017-10-19] MEDS ORDERED: *HR* Rocuronium Bromide 50 MG/5 ML VIAL ONE ×2 (06:23→09:09)
[2017-10-19] MEDS ORDERED: *HR* Propofol 200 MG/20 ML VIAL IVP ONE (06:24)
[2017-10-19] MEDS ORDERED: *HR* Midazolam HCl 5 MG/5 ML VIAL IVP ONE (06:25)
[2017-10-19] MEDS ORDERED: *HR* FentaNYL (PF) 250 MCG/5 ML VIAL ONE (06:25)
[2017-10-19] MEDS ORDERED: CeFAZolin Syringe 2,000MG/20 ML SYR IVPB ONE ×2 (07:00)
[2017-10-19] MEDS ORDERED: CeFAZolin Syr 2,000MG/20 ML 2,000 MG/20 ML SYRINGE IVPB ONE (07:00)
[2017-10-19] MEDS ORDERED: Heparin 1,000 UNITS/500 mL NS 500 ML ONE (07:51)
[2017-10-19] MEDS ORDERED: Morphine Sulfate/PF 10mg/10mL 10 MG, Bupivacaine-MPF 0.25% 125 ML in 0.9 % Sodium Chlor... EP SCH (09:00)
[2017-10-19] MEDS ORDERED: Dexamethasone 4 MG/ML VIAL ONE (09:13)
[2017-10-19] MEDS ORDERED: Ondansetron 4 MG/2 ML VIAL ONE (09:13)
[2017-10-19] MEDS ORDERED: TALC IX ONE (09:15)
[2017-10-19] MEDS ORDERED: SODIUM CHLORIDE IX ONE (09:15)
--- NOTE | 2017-10-19 09:19 | Anesthesia Procedures ---
Date of Encounter: 10/19/17 Time of Encounter: 08:00 Procedures: Anesthesia - Arterial Line Consent obtained: written consent Time out performed: Yes Sedation: Versed (mg): 3 Supplemental Oxygen via Nasal Cannula (L/min): 2 Size (Gauge): 20 Length (inches): 1 3/4 Technique Used: sterile prep, guide wire technique, direct puncture technique Post-Procedure: line taped into place, dry sterile dressing placed Patient tolerated procedure: well, no complications Complications: none Site: Radial L - Epidural/Spinal Patient ID/Chart reviewed: Yes Patient examined: Yes Consent Obtained: Yes Supplemental Oxygen: Nasal Cannula Supplemental Oxygen Rate (L/min): 2 Site Prep: Aseptic Technique, Sterile prep and drape, Povidone-Iodine 1% Patient position: upright Amount of Local Anesthetic used: 3 Touhy Needle Gauge: 18 Test Dose Result: Negative Interspace Used: T5-T6 Loss of Resistance (SHAY): Yes Blood: No CSF: No Paresthesia: No Procedure: Touhy needle placed easily using right paramedian approach. Good SHAY, Catheter inserted easily without paresthesia. Catheter in approx 5cm. No blood or CSF. Negative test dose. In OR, patient given 9cc 0.25% Marcaine + 50mcg Fentanyl. Will start infusion in ICU.
[2017-10-19] MEDS: Budesonide/Formoterol 80/4.5 MDI IH SCH ×2 (10:08→20:08)
[2017-10-19] MEDS ORDERED: Naloxone 0.4 MG/ML INJ IVP PRN (10:54)
[2017-10-19] MEDS ORDERED: *HR* OxyCODONE/APAP 5/325 TABLET PO PRN (10:54)
[2017-10-19] MEDS ORDERED: D5% in Water 1,000 ML IVC PRN (11:06)
[2017-10-19] MEDS ORDERED: Dextrose Gel 15 GM PO PRN ×2 (11:06)
[2017-10-19] MEDS ORDERED: *HR* Dextrose 50 % in Water (Syg) 50 ML SYRINGE IVP PRN (11:06)
--- NOTE | 2017-10-19 11:15 | Operative Note ---
Date of procedure: 10/19/17 Procedure in Detail: Preoperative diagnosis. Right spontaneous pneumothorax. Postoperative diagnosis. Same. Procedures. Right posterolateral thoracotomy with multiple stapling of apical blebs. Mechanical pleurodesis and chemical pleurodesis. Surgeon. Dr. Mansoor Cobos. Asst. Stanley Delong. The patient is a 62-year-old gentleman who underwent open heart surgery approximately 3 years ago. He used to smoke, but quit at the time of his open heart surgery. He does have significant emphysema and uses 3-1/2 L of oxygen at night and when necessary during the day. He presented with a right spontaneous pneumothorax. He has been treated with numerous chest tubes. However, we could never get the air leak to stop and his lung continued to collapse when the chest tubes were taken off suction. He was brought to the OR where he underwent a general anesthetic. He had placement of an epidural catheter in a double lumen endotracheal tube. He also had a left radial A-line. A standard right posterolateral thoracotomy was performed. Serratus anterior and latissimus dorsi muscles were divided with the Bovie electrocoagulation. The fifth intercostal space was selected and intercostal musculature was bovied off the top of the sixth rib. The lung was deflated and the pleura was entered. A rib meter maintenance person was inserted. The patient had dense scar tissue at the apex which was taken down sharply with the Metzenbaum scissors and Bovie electrocoagulation. He was also taken down bluntly. The patient had numerous apical blebs in the right upper lobe. The right middle and right lower lobes were relatively free of bleb formation. We removed numerous areas of blebs using the stapling devices. Some of these blebs were quite large. We used a total of 4 loads on the TA 60 stapling device and 5 loads on the TA-30 stapling device. At this point, no significant blebs remained. A mechanical pleurodesis was performed. Multiple Ray-Tiana 4 x 4 sponges and the Bovie scratchpad were used to rough up the pleura and create bleeding. The lung was reinflated and there were no significant air leaks. We did instill talc prior to closing. 2 chest tubes were left. A 36 straight chest tube to the apex. A 32 angle chest tube to the base. Intercostal sews were made out of #1 Vicryl in [id number] fashion. Serratus anterior and latissimus dorsi muscles were sewn with #1 Vicryl. Subcutaneous tissues with a 2-0 Vicryl. Skin was closed with a 3-0 Vicryl subcuticular stitch. The patient tolerated the procedure well and was returned to intensive care unit in satisfactory and stable condition.
--- NOTE | 2017-10-19 11:25 | Event Note ---
<Natalie Duque - Last Filed: 10/19/17 11:23> Date of Encounter: 10/19/17 Time of Encounter: 11:23 Patient is s/p right thoracotomy with cardiothoracic surgery. Will defer management to cardiothoracic surgery. Will sign off, if needed may reconsult medicine service as needed. <Efrain Craig - Last Filed: 10/19/17 14:40> Date of Encounter: 10/19/17 Pt to be managed by CTS service. Currently in ICU post thoracotomy. Will be available if needed. Please call.
[2017-10-19] MEDS: Albuterol 2.5 MG/3 ML NEBULIZER IH SCH ×3 (11:51→20:08)
[2017-10-19 12:25] LABS: Hemoglobin 8.9 g/dL (12.9-16.9); Red Cell Distribution Width 14.9 % (11.5-14.5)
[2017-10-19 12:26] LABS: Hematocrit 28.1 % (37.5-50.1); Mean Corpuscular HGB Conc 31.7 g/dL (31.6-35.5); Mean Corpuscular Hemoglobin 27.7 pg (28.0-33.3); Mean Corpuscular Volume 87.5 fL (83.0-100.0); Mean Platelet Volume 10.1 fL (9.4-12.4); Platelet Count 309 K/mcL (140-400); Red Blood Count 3.21 M/mcL (4.19-5.50)
[2017-10-19 12:28] LABS: ABG Base Excess 2 mEq/L (-2 to 3); ABG HCO3 28 mEq/L (21-27); ABG Oxygen Saturation 93 % (95-98); ABG PCO2 51 mmHg (35-45); ABG PH 7.35 pH Units (7.32-7.45); ABG PO2 71 mmHg (85-104); ABG TCO2 29 mEq/L (20-26)
[2017-10-19 12:59] LABS: Eosinophils # 0.5 K/mcL (0.0-0.6); Lymphocytes # 2.1 K/mcL (0.6-4.6); Monocytes # 1.1 K/mcL (0.0-1.3); Neutrophils # 22.8 K/mcL (1.6-8.9)
[2017-10-19] MEDS: *HR* Amiodarone 200 MG TABLET PO SCH (15:50)
[2017-10-19] MEDS: Aspirin Enteric Coated 81 MG Tablet PO SCH (15:50)
[2017-10-19] MEDS: Insulin LISPRO 300 UNITS/3 ML VIAL SQ SCH ×2 (15:52→16:51)
[2017-10-19] MEDS: Chlorhexidine Rinse 15 ML MOUTHWASH MM SCH ×2 (15:52→20:37)
[2017-10-19] MEDS: CeFAZolin Premix DUPLEX 2,000 MG/50 ML BAG IVPB SCH (15:55)
[2017-10-19] MEDS: 0.9 % Sodium Chloride 1,000 ML IVC SCH ×2 (16:00→20:40)
[2017-10-19] MEDS: Lactulose Oral Soln 20 GM/30 ML UDC PO SCH (16:01)
[2017-10-19] MEDS: Sennosides/Docusate Sodium TABLET PO SCH ×2 (16:01→20:36)
[2017-10-19] MEDS: Ketorolac 15 MG/ML VIAL IM SCH (18:06)
[2017-10-19] MEDS ORDERED: Insulin LISPRO 300 UNITS/3 ML VIAL SQ SCH (21:00)
[2017-10-20] MEDS: Albuterol 2.5 MG/3 ML NEBULIZER IH SCH ×7 (00:03→23:22)
[2017-10-20] MEDS: CeFAZolin Premix DUPLEX 2,000 MG/50 ML BAG IVPB SCH (00:33)
[2017-10-20] MEDS: Ketorolac 15 MG/ML VIAL IM SCH ×2 (00:33→05:58)
[2017-10-20] MEDS: 0.9 % Sodium Chloride 1,000 ML IVC SCH (00:46)
[2017-10-20] MEDS: *HR* Morphine 2 MG/ML SYRINGE IVP PRN ×7 (01:06→21:11)
[2017-10-20 03:22] LABS: ABG Base Excess 0 mEq/L (-2 to 3); ABG HCO3 27 mEq/L (21-27); ABG Oxygen Saturation 90 % (95-98); ABG PCO2 49 mmHg (35-45); ABG PH 7.34 pH Units (7.32-7.45); ABG PO2 62 mmHg (85-104); ABG TCO2 28 mEq/L (20-26)
[2017-10-20 03:34] LABS: Basophils % 0.1 %; Hematocrit 21.2 % (37.5-50.1); Immature Granulocytes % 0.8 % (0-4); Lymphocytes # 0.5 K/mcL (0.6-4.6); Lymphocytes % 2.6 %; Mean Corpuscular HGB Conc 31.6 g/dL (31.6-35.5); Mean Corpuscular Hemoglobin 27.9 pg (28.0-33.3); Mean Corpuscular Volume 88.3 fL (83.0-100.0); Monocytes # 1.1 K/mcL (0.0-1.3); Monocytes % 5.2 %; Neutrophils # 18.6 K/mcL (1.6-8.9); Platelet Count 221 K/mcL (140-400); Red Cell Distribution Width 14.9 % (11.5-14.5); Segmented Neutrophils % 91.3 %
[2017-10-20 03:36] LABS: Hemoglobin 6.7 g/dL (12.9-16.9)
[2017-10-20 03:43] LABS: INR 1.3
[2017-10-20 03:46] LABS: Activated Partial Thrombo Time 60.5 Seconds (26.0-36.0)
[2017-10-20 03:54] LABS: BUN/Creatinine Ratio 27 (6-26); Blood Urea Nitrogen 28 mg/dL (8-26); Carbon Dioxide 22 mEq/L (19-29); Chloride 109 mEq/L (98-109); Glucose 182 mg/dL (70-99); Osmolality,Calculated 300 (280-300); Potassium 4.2 mEq/L (3.5-4.5); Sodium 140 mEq/L (136-145); eGFR For African Americans > 60 (> 60); eGFR For Non-African Americans > 60 (> 60)
[2017-10-20 03:55] LABS: Calcium 7.5 mg/dL (8.6-10.8)
[2017-10-20] MEDS: Ipratropium/Albuterol Neb 3 ML IH SCH ×5 (04:16→22:20)
[2017-10-20] MEDS ORDERED: 0.9 % Sodium Chloride 500 ML ONE (07:37)
[2017-10-20] MEDS: Budesonide/Formoterol 80/4.5 MDI IH SCH ×3 (07:40→22:20)
[2017-10-20] MEDS: Lactulose Oral Soln 20 GM/30 ML UDC PO SCH (07:59)
[2017-10-20] MEDS: Aspirin Enteric Coated 81 MG Tablet PO SCH (07:59)
[2017-10-20] MEDS: Sennosides/Docusate Sodium TABLET PO SCH ×2 (07:59→21:12)
[2017-10-20] MEDS: Chlorhexidine Rinse 15 ML MOUTHWASH MM SCH ×2 (07:59→21:12)
[2017-10-20] MEDS: *HR* Amiodarone 200 MG TABLET PO SCH (07:59)
[2017-10-20] MEDS: Insulin LISPRO 300 UNITS/3 ML VIAL SQ SCH ×4 (08:00→21:24)
[2017-10-20] MEDS: *HR* HYDROcodone/Acet 10/325 mg TABLET PO PRN ×3 (08:47→23:40)
--- NOTE | 2017-10-20 08:57 | Cardiothoracic Progress Note ---
Date of Encounter: 10/20/17 Time of Encounter: 08:54 - Assessment and plan (1) Acute and chronic respiratory failure with hypoxia Current Visit: Yes Status: Chronic The patient does have the usual, expected acute postoperative blood loss anemia. He is receiving 2 units of packed red blood cells for hemoglobin of 6.7. He also had preop anemia of chronic disease. We will leave the Calderon catheter as long as the chest tubes an epidural catheter in. We will transfer the patient to the floor. - Subjective Interval history: The patient is extubated and sitting in a chair. He has no complaints. His pain is well controlled with IV narcotics, IV Toradol and the epidural catheter. Vital Signs, Last 4 Hours Temp Pulse Resp BP Pulse Ox 10/20/17 08:10 97.8 F 87 18 103/51 10/20/17 08:08 57 18 121/43 96 10/20/17 07:55 99.6 F 55 18 125/42 10/20/17 07:54 99.6 F 10/20/17 06:00 59 20 131/54 96 10/20/17 05:45 63 10/20/17 05:00 56 20 129/52 94 10/20/17 04:57 99.2 F Oxgyen Flow Rate Oxygen Flow Rate (LPM) 4 Clinical Data, last 8 Hours Output, Chest Tube Drainage 0 Amount [Right Lower Lateral Chest #2] Output, Chest Tube Drainage 0 Amount [Right Lower Lateral Chest #2] Output, Chest Tube Drainage 22 Amount [Right Lower Lateral Chest #2] Output, Chest Tube Drainage 10 Amount [Right Upper Anterior Chest #1] Output, Chest Tube Drainage 20 Amount [Right Upper Anterior Chest #1] Weight 10/18/17 10/19/17 10/20/17 23:59 23:59 23:59 Weight 77.5 kg 86 kg 77.111 kg Lungs are clear to percussion and auscultation. Heart is in a regular rate and rhythm. His incision is healing well without signs of infection. The chest tube has minimal drainage and a small air leak with expiration. - Labs 10/20/17 03:12 10/20/17 03:12 Lab Results, Last 24 hours 10/19/17 10/20/17 10/20/17 12:15 03:12 03:12 WBC 26.5 H D 20.4 H Hgb 8.9 L 6.7 L D Hct 28.1 L 21.2 L Plt Count 309 221 INR 1.3 APTT 60.5 H Sodium Potassium Chloride Carbon Dioxide BUN Creatinine Glucose Calcium 10/20/17 03:12 WBC Hgb Hct Plt Count INR APTT Sodium 140 Potassium 4.2 Chloride 109 Carbon Dioxide 22 BUN 28 H D Creatinine 1.03 Glucose 182 H Calcium 7.5 L D - VTE Documentation of Mechanical Device: Intermittent pneumatic compression device Consult Discharge Plan - Plan Referrals: Eleazar Kee CNP [Primary Care Provider] - 10/26/17 11:00 am () Mansoor Cobos MD [Partnered Physician] - 11/01/17 1:15 pm Gabo Li MD [Partnered Physician] - 10/25/17 9:00 am
[2017-10-20] MEDS ORDERED: Nitroglycerin 0.4 MG TAB.SUBL SL PRN (09:10)
[2017-10-20] MEDS ORDERED: D5% in Water 1,000 ML IVC PRN (09:10)
[2017-10-20] MEDS ORDERED: Acetaminophen 325 MG TABLET PO PRN (09:10)
[2017-10-20] MEDS ORDERED: Ondansetron 4 MG/2 ML VIAL IVP PRN (09:10)
[2017-10-20] MEDS ORDERED: Dextrose Gel 15 GM PO PRN ×2 (09:10)
[2017-10-20] MEDS ORDERED: *HR* Dextrose 50 % in Water (Syg) 50 ML SYRINGE IVP PRN (09:10)
[2017-10-20] MEDS ORDERED: MOM Conc 10 ML UD.LIQ PO PRN (09:10)
[2017-10-20] MEDS ORDERED: Naloxone 0.4 MG/ML INJ IVP PRN ×2 (09:10)
[2017-10-20] MEDS: Ketorolac 15 MG/ML VIAL IVP SCH ×3 (11:25→23:41)
[2017-10-20] MEDS ORDERED: Ketorolac 15 MG/ML VIAL IVP SCH (12:00)
--- NOTE | 2017-10-20 13:16 | Anesthesia Evaluation Post Op ---
Date of Encounter: 10/20/17 Time of Encounter: 13:13 - Vital Signs Vital Signs: Vital Signs/O2 Sat, Most Current Temp Pulse Resp BP Pulse Ox 98.3 F 60 18 114/68 93 10/20/17 12:53 10/20/17 12:53 10/20/17 12:53 10/20/17 12:53 10/20/17 11:31 - Lungs Lungs: Clear Ascult./Percussion - Airway Airway: Non-obstructed - Cardiovascular Regular Rate - Mental Status Mental Status: Alert & Oriented, Answers Appropriately - Pain Pain Scale used: Numeric (1 - 10) (tolerable) - Nausea Vomiting Nausea Vomiting: Not Present - Hydration Hydration: Tolerates oral liquids, Calderon catheter - Discharge PostOp Status: Transfer Patient to floor Attestation: I have assessed this patient and find they meet discharge criteria.
--- NOTE | 2017-10-20 13:19 | Anesthesia Progress Note ---
Date of Encounter: 10/20/17 Time of Encounter: 13:17 Anesthesia Note - Note Note: 10/20/17 13:17 Pt is POD #I s/p thoracotomy. Pt's pain is well controlled with epidural at 7ml/ hr Afebrile Vital signs are stable Epidural site clean dry and intact without erythema Continue epidural at current rates Will continue to follow
[2017-10-20] MEDS ORDERED: *HR* Heparin 5,000 UNIT/ML VIAL SQ SCH (18:00)
[2017-10-20] MEDS: *HR* Heparin 5,000 UNIT/ML VIAL SQ SCH (18:18)
[2017-10-21] MEDS: Morphine Sulfate/PF 10mg/10mL 10 MG, Bupivacaine-MPF 0.25% 125 ML in 0.9 % Sodium Chlor... EP SCH ×2 (00:05→00:08)
[2017-10-21 01:15] LABS: Basophils % 0.1 %; Hematocrit 26.6 % (37.5-50.1); Immature Granulocytes % 0.9 % (0-4); Lymphocytes # 1.1 K/mcL (0.6-4.6); Lymphocytes % 4.7 %; Mean Corpuscular Hemoglobin 27.7 pg (28.0-33.3); Mean Corpuscular Volume 86.6 fL (83.0-100.0); Mean Platelet Volume 10.3 fL (9.4-12.4); Monocytes % 8.6 %; Neutrophils # 19.7 K/mcL (1.6-8.9); Platelet Count 227 K/mcL (140-400); Red Blood Count 3.07 M/mcL (4.19-5.50); Red Cell Distribution Width 14.8 % (11.5-14.5); Segmented Neutrophils % 85.7 %
[2017-10-21 01:17] LABS: Hemoglobin 8.5 g/dL (12.9-16.9)
[2017-10-21 01:28] LABS: BUN/Creatinine Ratio 32 (6-26); Blood Urea Nitrogen 35 mg/dL (8-26); Carbon Dioxide 27 mEq/L (19-29); Chloride 106 mEq/L (98-109); Glucose 119 mg/dL (70-99); Osmolality,Calculated 293 (280-300); Potassium 4.8 mEq/L (3.5-4.5); Sodium 137 mEq/L (136-145); eGFR For African Americans > 60 (> 60); eGFR For Non-African Americans > 60 (> 60)
[2017-10-21 01:42] LABS: Calcium 8.8 mg/dL (8.6-10.8)
[2017-10-21] MEDS: Ipratropium/Albuterol Neb 3 ML IH SCH ×4 (04:37→22:02)
[2017-10-21] MEDS: Albuterol 2.5 MG/3 ML NEBULIZER IH SCH ×6 (04:38→22:46)
[2017-10-21] MEDS: Ketorolac 15 MG/ML VIAL IVP SCH ×3 (04:59→18:03)
[2017-10-21] MEDS: *HR* Heparin 5,000 UNIT/ML VIAL SQ SCH ×2 (04:59→18:03)
[2017-10-21] MEDS: *HR* HYDROcodone/Acet 10/325 mg TABLET PO PRN ×4 (05:00→20:34)
[2017-10-21] MEDS: Sennosides/Docusate Sodium TABLET PO SCH ×2 (07:57→20:08)
[2017-10-21] MEDS: Chlorhexidine Rinse 15 ML MOUTHWASH MM SCH ×2 (07:57→20:09)
[2017-10-21] MEDS: Lactulose Oral Soln 20 GM/30 ML UDC PO SCH (07:57)
[2017-10-21] MEDS: *HR* Amiodarone 200 MG TABLET PO SCH (07:57)
[2017-10-21] MEDS: Aspirin Enteric Coated 81 MG Tablet PO SCH (07:57)
[2017-10-21] MEDS: Insulin LISPRO 300 UNITS/3 ML VIAL SQ SCH ×3 (07:58→16:32)
--- NOTE | 2017-10-21 08:26 | Cardiothoracic Progress Note ---
Date of Encounter: 10/21/17 Time of Encounter: 08:24 - Assessment and plan (1) Acute and chronic respiratory failure with hypoxia Current Visit: Yes Status: Chronic The patient's pain is well controlled on his present regimen. We will leave his chest tubes to suction. He does have significant emphysema and maybe need to be discharged with a Heimlich valve. - Subjective Interval history: The patient is sitting in a chair. He is tolerating his diet. He has no complaints. He requests that we leave his Calderon catheter until the epidural catheter is out. Vital Signs, Last 4 Hours Temp Pulse Resp BP Pulse Ox 10/21/17 07:43 98.2 F 58 18 133/85 96 Oxgyen Flow Rate Oxygen Flow Rate (LPM) 3.5 Clinical Data, last 8 Hours Output, Chest Tube Drainage 5 Amount [Right Lower Lateral Chest #2] Output, Chest Tube Drainage 5 Amount [Right Lower Lateral Chest #2] Output, Chest Tube Drainage 10 Amount [Right Lateral Chest #1 ] Output, Chest Tube Drainage 10 Amount [Right Lateral Chest #1 ] Output, Urine Amount 200 Weight 10/19/17 10/20/17 10/21/17 23:59 23:59 23:59 Weight 86 kg 77.111 kg 76.6 kg Lungs are clear to percussion and auscultation. Heart is in a regular rate and rhythm. His incision is healing well without signs of infection. One of his chest tubes has a significant air leak with expiration and cough which appears to be somewhat increased. - Labs 10/21/17 01:01 10/21/17 01:01 Lab Results, Last 24 hours 10/21/17 10/21/17 01:01 01:01 WBC 23.0 H Hgb 8.5 L D Hct 26.6 L Plt Count 227 Sodium 137 Potassium 4.8 H Chloride 106 Carbon Dioxide 27 BUN 35 H Creatinine 1.08 Glucose 119 H Calcium 8.8 D - VTE Documentation of Mechanical Device: Intermittent pneumatic compression device Consult Discharge Plan - Plan Referrals: Eleazar Kee CNP [Primary Care Provider] - 10/26/17 11:00 am () Mansoor Cobos MD [Partnered Physician] - 11/01/17 1:15 pm Gabo Li MD [Partnered Physician] - 10/25/17 9:00 am
--- NOTE | 2017-10-21 08:42 | Anesthesia Progress Note ---
Date of Encounter: 10/21/17 Time of Encounter: 08:45 Anesthesia Note - Note Note: 10/21/17 08:41 Patient Comfortable, sitting up. Epidural site clean. VSS. Continue current rate.
[2017-10-21] MEDS: *HR* Morphine 2 MG/ML SYRINGE IVP PRN ×3 (09:36→20:09)
[2017-10-21] MEDS: Budesonide/Formoterol 80/4.5 MDI IH SCH ×2 (11:09→22:02)
[2017-10-22] MEDS: Insulin LISPRO 300 UNITS/3 ML VIAL SQ SCH ×5 (00:22→20:44)
[2017-10-22] MEDS: *HR* Morphine 2 MG/ML SYRINGE IVP PRN ×5 (00:29→13:10)
[2017-10-22] MEDS: Ketorolac 15 MG/ML VIAL IVP SCH ×5 (00:30→23:14)
[2017-10-22 00:34] LABS: Basophils # 0.1 K/mcL (0.0-0.2); Basophils % 0.3 %; Eosinophils # 0.5 K/mcL (0.0-0.6); Hematocrit 29.9 % (37.5-50.1); Hemoglobin 9.6 g/dL (12.9-16.9); Immature Granulocytes % 1.1 % (0-4); Lymphocytes # 2.1 K/mcL (0.6-4.6); Lymphocytes % 8.7 %; Mean Corpuscular HGB Conc 32.1 g/dL (31.6-35.5); Mean Corpuscular Hemoglobin 27.7 pg (28.0-33.3); Mean Corpuscular Volume 86.4 fL (83.0-100.0); Mean Platelet Volume 10.7 fL (9.4-12.4); Monocytes # 2.1 K/mcL (0.0-1.3); Monocytes % 8.7 %; Neutrophils # 18.6 K/mcL (1.6-8.9); Platelet Count 256 K/mcL (140-400); Red Blood Count 3.46 M/mcL (4.19-5.50); Red Cell Distribution Width 14.9 % (11.5-14.5); Segmented Neutrophils % 79.2 %
[2017-10-22 00:46] LABS: BUN/Creatinine Ratio 30 (6-26); Blood Urea Nitrogen 25 mg/dL (8-26); Calcium 8.9 mg/dL (8.6-10.8); Carbon Dioxide 25 mEq/L (19-29); Chloride 105 mEq/L (98-109); Glucose 94 mg/dL (70-99); Osmolality,Calculated 286 (280-300); Potassium 5.5 mEq/L (3.5-4.5); Sodium 136 mEq/L (136-145); eGFR For African Americans > 60 (> 60); eGFR For Non-African Americans > 60 (> 60)
[2017-10-22] MEDS: *HR* HYDROcodone/Acet 10/325 mg TABLET PO PRN ×4 (02:26→16:41)
[2017-10-22] MEDS: Ipratropium/Albuterol Neb 3 ML IH SCH ×4 (03:50→22:00)
[2017-10-22] MEDS: Albuterol 2.5 MG/3 ML NEBULIZER IH SCH ×5 (04:07→22:01)
[2017-10-22] MEDS: *HR* Heparin 5,000 UNIT/ML VIAL SQ SCH ×2 (06:49→18:29)
[2017-10-22] MEDS: Chlorhexidine Rinse 15 ML MOUTHWASH MM SCH ×2 (07:22→20:43)
[2017-10-22] MEDS: *HR* Amiodarone 200 MG TABLET PO SCH (07:23)
[2017-10-22] MEDS: Lactulose Oral Soln 20 GM/30 ML UDC PO SCH (07:23)
[2017-10-22] MEDS: Aspirin Enteric Coated 81 MG Tablet PO SCH (07:23)
[2017-10-22] MEDS: Sennosides/Docusate Sodium TABLET PO SCH ×2 (07:23→20:43)
--- NOTE | 2017-10-22 09:37 | Cardiothoracic Progress Note ---
Date of Encounter: 10/22/17 Time of Encounter: 09:35 - Assessment and plan (1) Spontaneous pneumothorax Current Visit: Yes Status: Acute The patient remains hemodynamically stable and is breathing comfortably. Chest tube #2 has a small intermittent air leak and the chest tube should remain on water suction for several days. The patient may ambulating the hallways off suction. The assessment and plan as outlined above was discussed with the patient and/or family members who expressed understanding and agreement. All questions were answered. - Subjective Procedure(s) Performed: POD#3 S/P Right thoracotomy with apical bleb resection Interval history: The patient remained hemodynamically stable overnight. He is sitting in a chair at the bedside and breathing comfortably. He has no complaints. Vital Signs, Last 4 Hours Temp Pulse Resp BP Pulse Ox 10/22/17 07:23 74 10/22/17 06:47 98.3 F 82 16 137/88 91 Oxgyen Flow Rate Oxygen Flow Rate (LPM) 3 Clinical Data, last 8 Hours Output, Chest Tube Drainage 0 Amount [Right Lower Lateral Chest #2] Output, Chest Tube Drainage 30 Amount [Right Lower Lateral Chest #2] Output, Chest Tube Drainage 0 Amount [Right Lateral Chest #1 ] Output, Chest Tube Drainage 110 Amount [Right Lateral Chest #1 ] Weight 10/20/17 10/21/17 10/22/17 23:59 23:59 23:59 Weight 77.111 kg 76.6 kg 78.2 kg - Physical Examination General: Conversant, No Apparent Distress HEENT: Atraumatic, Normocephaly, Trachea midline Neck: No JVD, Normal carotid pulses Cardiac: Reg Rate and Rhythm, Normal S1 and S2, No Murmur Incision: No signs of infection, Dry/intact dressing Chest tubes: Minimal drainage, Air leak (Chest tube #2) Lungs: Normal Breath Sounds, No Wheeze, Rales, Rhonchi Neuro: Alert and responsive, No focal deficits noted Vascular: Normal capillary refill Extremities: No Clubbing, No Cyanosis, No Edema - Labs 10/22/17 00:25 10/22/17 00:25 Lab Results, Last 24 hours 10/22/17 10/22/17 00:25 00:25 WBC 23.5 H Hgb 9.6 L Hct 29.9 L Plt Count 256 Sodium 136 Potassium 5.5 H Chloride 105 Carbon Dioxide 25 BUN 25 D Creatinine 0.84 Glucose 94 Calcium 8.9 - Imaging Chest Xray: image reviewed (No pneumothorax. Minimal atelectasis/infiltrates.) - VTE Documentation of Mechanical Device: Intermittent pneumatic compression device Consult Discharge Plan - Plan Referrals: Eleazar Kee CNP [Primary Care Provider] - 10/26/17 11:00 am () Mansoor Cobos MD [Partnered Physician] - 11/01/17 1:15 pm Gabo Li MD [Partnered Physician] - 10/25/17 9:00 am
[2017-10-22] MEDS: Budesonide/Formoterol 80/4.5 MDI IH SCH ×2 (10:31→22:00)
[2017-10-22] MEDS: Morphine Sulfate/PF 10mg/10mL 10 MG, Bupivacaine-MPF 0.25% 125 ML in 0.9 % Sodium Chlor... EP SCH ×2 (10:45→14:05)
--- NOTE | 2017-10-22 14:16 | Anesthesia Progress Note ---
Date of Encounter: 10/22/17 Time of Encounter: 14:00 Anesthesia Note - Note Note: 10/22/17 14:14 Epidural rounds. POD #3 thoracotomy. C/O pain with coughing. Complains morphine not effective with BTP. Will change to Dilaudid 1mg q2hrs. I increased epidural rate from 7 to 9cc/hr. Epidural site clear, no erythema, no tenderness. Patient moves in bed without evidence of significant pain. Patient is afebrile and vital signs are stable.
[2017-10-22] MEDS: *HR* HYDROmorphone 2 MG/ML SYRINGE IVP PRN ×4 (15:09→23:13)
[2017-10-23] MEDS: Albuterol 2.5 MG/3 ML NEBULIZER IH SCH ×7 (00:11→20:44)
[2017-10-23] MEDS: *HR* HYDROmorphone 2 MG/ML SYRINGE IVP PRN ×7 (01:52→23:52)
[2017-10-23] MEDS: *HR* OxyCODONE/APAP 5/325 TABLET PO PRN ×4 (01:53→23:52)
[2017-10-23] MEDS: Ipratropium/Albuterol Neb 3 ML IH SCH ×4 (03:42→22:09)
[2017-10-23] MEDS: *HR* HYDROcodone/Acet 10/325 mg TABLET PO PRN ×3 (04:04→16:09)
[2017-10-23] MEDS: *HR* Heparin 5,000 UNIT/ML VIAL SQ SCH ×2 (06:21→16:53)
[2017-10-23] MEDS: Ketorolac 15 MG/ML VIAL IVP SCH ×4 (06:21→23:52)
[2017-10-23] MEDS: Insulin LISPRO 300 UNITS/3 ML VIAL SQ SCH ×4 (07:33→21:09)
[2017-10-23] MEDS: Sennosides/Docusate Sodium TABLET PO SCH ×2 (07:40→21:07)
[2017-10-23] MEDS: *HR* Amiodarone 200 MG TABLET PO SCH (07:40)
[2017-10-23] MEDS: Lactulose Oral Soln 20 GM/30 ML UDC PO SCH (07:40)
[2017-10-23] MEDS: Chlorhexidine Rinse 15 ML MOUTHWASH MM SCH ×2 (07:40→21:08)
[2017-10-23] MEDS: Aspirin Enteric Coated 81 MG Tablet PO SCH (07:41)
--- NOTE | 2017-10-23 10:00 | Anesthesia Progress Note ---
Date of Encounter: 10/23/17 Time of Encounter: 09:15 Anesthesia Note - Note Note: 10/23/17 09:58 POD#4 thoracotomy. Pain control is better with increased rate on epidural and change to Dilaudid. Epidural site dry and intact. No erythema, drainage or tenderness at site. Afebrile. Will continue current therapy until chest tubes removed. 10/23/17 09:59
--- NOTE | 2017-10-23 10:00 | Cardiothoracic Progress Note ---
Date of Encounter: 10/23/17 Time of Encounter: 09:58 - Assessment and plan (1) Spontaneous pneumothorax Current Visit: Yes Status: Acute The patient remains hemodynamically stable and is breathing comfortably. Chest tube #2 has a small intermittent air leak and the chest tubes should remain on water suction until the air leak stops. The patient may ambulating the hallways off suction. The assessment and plan as outlined above was discussed with the patient and/or family members who expressed understanding and agreement. All questions were answered. - Subjective Procedure(s) Performed: POD#4 S/P Right thoracotomy with apical bleb resection Interval history: The patient remained hemodynamically stable overnight. He is breathing comfortably. He has no complaints. Vital Signs, Last 4 Hours Temp Pulse Resp BP Pulse Ox 10/23/17 07:51 58 10/23/17 07:27 98.5 F 57 18 109/61 93 Oxgyen Flow Rate Oxygen Flow Rate (LPM) 5 Clinical Data, last 8 Hours Output, Chest Tube Drainage 0 Amount [Right Lower Lateral Chest #2] Output, Chest Tube Drainage 0 Amount [Right Lower Lateral Chest #2] Output, Chest Tube Drainage 0 Amount [Right Lateral Chest #1 ] Output, Chest Tube Drainage 110 Amount [Right Lateral Chest #1 ] Weight 10/21/17 10/22/17 10/23/17 23:59 23:59 23:59 Weight 76.6 kg 78.2 kg - Physical Examination General: Conversant, No Apparent Distress Neck: No JVD, Normal carotid pulses Cardiac: Reg Rate and Rhythm, Normal S1 and S2, No Murmur Incision: No signs of infection, Dry/intact dressing Chest tubes: Minimal drainage, Air leak (Chest tube #2 him unchanged.) Lungs: Normal Breath Sounds, No Wheeze, Rales, Rhonchi Neuro: Alert and responsive, No focal deficits noted Vascular: Normal capillary refill Extremities: No Clubbing, No Cyanosis, No Edema - Labs 10/22/17 00:25 10/22/17 00:25 - Imaging Chest Xray: image reviewed (Small right apical pneumothorax.) - VTE Documentation of Mechanical Device: Intermittent pneumatic compression device Consult Discharge Plan - Plan Referrals: Eleazar Kee CNP [Primary Care Provider] - 10/26/17 11:00 am () Mansoor Cobos MD [Partnered Physician] - 11/01/17 1:15 pm Gabo Li MD [Partnered Physician] - 10/25/17 9:00 am
[2017-10-23] MEDS: Budesonide/Formoterol 80/4.5 MDI IH SCH ×2 (10:38→22:09)
[2017-10-23] MEDS: Morphine Sulfate/PF 10mg/10mL 10 MG, Bupivacaine-MPF 0.25% 125 ML in 0.9 % Sodium Chlor... EP SCH (17:56)
[2017-10-23] MEDS ORDERED: Albuterol 2.5 MG/3 ML NEBULIZER IH PRN (20:46)
[2017-10-24] MEDS: Ipratropium/Albuterol Neb 3 ML IH SCH (04:39)
[2017-10-24] MEDS ORDERED: *HR* HYDROmorphone (PF) 1 MG/ML SYRINGE ONE (05:31)
[2017-10-24] MEDS: *HR* Heparin 5,000 UNIT/ML VIAL SQ SCH (05:38)
[2017-10-24] MEDS: Ketorolac 15 MG/ML VIAL IVP SCH ×4 (05:39→23:13)
[2017-10-24] MEDS: *HR* HYDROmorphone 2 MG/ML SYRINGE IVP PRN ×5 (05:39→23:48)
[2017-10-24] MEDS ORDERED: methylPREDNISolone 125 MG/2 ML VIAL IVP ONE (05:53)
[2017-10-24] MEDS ORDERED: *HR* Heparin 5,000 UNIT/ML VIAL IVP ONE (05:54)
[2017-10-24] MEDS ORDERED: *HR* Heparin 5,000 UNIT/ML VIAL IVP PRN ×3 (05:54→09:37)
[2017-10-24] MEDS ORDERED: Heparin 25,000 UNIT/500 ML D5W 25,000 UNIT/500 ML BAG IVC SCH (06:00)
--- NOTE | 2017-10-24 06:04 | Event Note ---
Date of Encounter: 10/24/17 Time of Encounter: 06:02 Floor called for rapid desaturation over the last 1 hour. Rapidly desat from 5 L which he had been on overnight to 15 L and Bipap over the last hour. Duoneb attempted with no improvement. Exam with coarse rhonchi, crackle on right lung. Unknown whether this is his baseline this admission He has no IVF ordered BP high 180 SBP CXR stat with : XR/XR chest 1V portable IMPRESSION: 1. Persistent tiny right apical pneumothorax. 2. Improving right upper lobe airspace disease. A/P - Now needing BIPAP (low pressure) - 125mg IV solumedrol once - 40mg IV lasix once - unsure if this is PE since CXR read was unchanged. Empiric heparin gtt, check doppler US of b/l LE - d/w CT surgery - to eval soon - follow closely
[2017-10-24] MEDS ORDERED: Furosemide 40 MG/4 ML VIAL IVP ONE (06:08)
[2017-10-24 06:36] LABS: Activated Partial Thrombo Time 28.8 Seconds (26.0-36.0)
--- NOTE | 2017-10-24 07:08 | Cardiothoracic Progress Note ---
Date of Encounter: 10/24/17 Time of Encounter: 07:05 - Assessment and plan (1) Spontaneous pneumothorax Current Visit: Yes Status: Acute The patient had a dramatic deterioration in his respiratory status overnight. He is currently on BiPAP and saturating 90%. Chest tube #2 has a small intermittent air leak on suction. The patient may have had a pulmonary embolus resulting in his respiratory deterioration. On the patient is hemodynamically stable he will need a CTA to rule out pulmonary embolism. Venous duplex both lower extremities were performed this morning. I will discuss the patient's current condition with the scale assembly set up worker and possibly move the patient to the ICU for close observation of his respiratory status. The assessment and plan as outlined above was discussed with the patient and/or family members who expressed understanding and agreement. All questions were answered. - Subjective Procedure(s) Performed: POD#5 S/P Right thoracotomy with apical bleb resection Interval history: The patient had a dramatic deterioration in his respiratory status overnight. He is currently on BiPAP and saturating 90%. Vital Signs, Last 4 Hours Temp Pulse Resp BP Pulse Ox 10/24/17 05:31 31 80 10/24/17 05:19 98.9 F 89 18 178/94 87 10/24/17 04:39 18 178/94 79 Oxgyen Flow Rate Oxygen Flow Rate (LPM) 15 Weight 10/22/17 10/23/17 10/24/17 23:59 23:59 23:59 Weight 78.2 kg 78.9 kg - Physical Examination General: Conversant, No Apparent Distress Neck: No JVD, Normal carotid pulses Cardiac: Reg Rate and Rhythm, Normal S1 and S2, No Murmur Incision: No signs of infection, Dry/intact dressing Chest tubes: Minimal drainage, Air leak (Chest tube #2.) Lungs: Other (Rhonchi bilaterally) Neuro: Alert and responsive, No focal deficits noted Vascular: Normal capillary refill Extremities: No Clubbing, No Cyanosis, No Edema - Labs 10/22/17 00:25 10/22/17 00:25 Lab Results, Last 24 hours 10/24/17 06:10 APTT 28.8 D - Imaging Chest Xray: image reviewed (Small right apical pneumothorax. Improved right upper lobe aeration. No change in bibasilar airspace disease.) - VTE Documentation of Mechanical Device: Intermittent pneumatic compression device Consult Discharge Plan - Plan Referrals: Eleazar Kee CNP [Primary Care Provider] - 10/26/17 11:00 am () Mansoor Cobos MD [Partnered Physician] - 11/01/17 1:15 pm Gabo Li MD [Partnered Physician] - 10/25/17 9:00 am
[2017-10-24] MEDS: Lactulose Oral Soln 20 GM/30 ML UDC PO SCH (07:37)
[2017-10-24] MEDS: Aspirin Enteric Coated 81 MG Tablet PO SCH (07:37)
[2017-10-24] MEDS: Sennosides/Docusate Sodium TABLET PO SCH ×2 (07:37→20:50)
[2017-10-24] MEDS: Chlorhexidine Rinse 15 ML MOUTHWASH MM SCH ×2 (07:37→20:48)
[2017-10-24] MEDS: *HR* Amiodarone 200 MG TABLET PO SCH (07:37)
[2017-10-24] MEDS: Insulin LISPRO 300 UNITS/3 ML VIAL SQ SCH ×4 (07:49→20:51)
[2017-10-24 09:04] LABS: ABG Base Excess 5 mEq/L (-2 to 3); ABG HCO3 29 mEq/L (21-27); ABG Oxygen Saturation 92 % (95-98); ABG PCO2 42 mmHg (35-45); ABG PH 7.45 pH Units (7.32-7.45); ABG PO2 62 mmHg (85-104); ABG TCO2 30 mEq/L (20-26)
[2017-10-24] MEDS ORDERED: Pantoprazole 40 MG VIAL IVPB SCH (09:30)
[2017-10-24] MEDS ORDERED: Naloxone 0.4 MG/ML INJ IVP PRN ×2 (09:37)
[2017-10-24] MEDS ORDERED: Dextrose Gel 15 GM PO PRN ×2 (09:37)
[2017-10-24] MEDS ORDERED: Ondansetron 4 MG/2 ML VIAL IVP PRN (09:37)
[2017-10-24] MEDS ORDERED: *HR* Dextrose 50 % in Water (Syg) 50 ML SYRINGE IVP PRN (09:37)
[2017-10-24] MEDS ORDERED: Albuterol 2.5 MG/3 ML NEBULIZER IH PRN (09:37)
[2017-10-24] MEDS ORDERED: MOM Conc 10 ML UD.LIQ PO PRN (09:37)
[2017-10-24] MEDS ORDERED: Acetaminophen 325 MG TABLET PO PRN (09:37)
[2017-10-24] MEDS ORDERED: D5% in Water 1,000 ML IVC PRN (09:37)
[2017-10-24] MEDS ORDERED: Nitroglycerin 0.4 MG TAB.SUBL SL PRN (09:37)
[2017-10-24] MEDS ORDERED: *HR* HYDROcodone/Acet 10/325 mg TABLET PO PRN (09:37)
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
[2017-10-24 09:56] LABS: Basophils % 0.2 %; Eosinophils % 0.1 %; Hematocrit 29.7 % (37.5-50.1); Hemoglobin 9.3 g/dL (12.9-16.9); Immature Granulocytes % 0.5 % (0-4); Lymphocytes # 0.3 K/mcL (0.6-4.6); Lymphocytes % 1.5 %; Mean Corpuscular HGB Conc 31.3 g/dL (31.6-35.5); Mean Corpuscular Volume 86.1 fL (83.0-100.0); Mean Platelet Volume 9.9 fL (9.4-12.4); Monocytes # 0.8 K/mcL (0.0-1.3); Monocytes % 4.8 %; Platelet Count 305 K/mcL (140-400); Red Blood Count 3.45 M/mcL (4.19-5.50); Segmented Neutrophils % 92.9 %
[2017-10-24] MEDS: Tiotropium 18 MCG inhalation IH SCH ×2 (09:58→10:56)
[2017-10-24] MEDS ORDERED: Ipratropium/Albuterol Neb 3 ML IH SCH (10:00)
[2017-10-24] MEDS ORDERED: Budesonide/Formoterol 80/4.5 MDI IH SCH (10:00)
[2017-10-24 10:10] LABS: Alanine Aminotransferase 26 Units/L (0-55); Albumin 2.1 g/dL (3.5-5.0); Albumin/Globulin Ratio 0.5 (1.1-2.2); Alkaline Phosphatase 113 Units/L (38-126); Aspartate Amino Transferase 24 Units/L (5-34); BUN/Creatinine Ratio 27 (6-26); Bilirubin,Total 0.8 mg/dL (0.2-1.2); Blood Urea Nitrogen 22 mg/dL (8-26); Calcium 8.8 mg/dL (8.6-10.8); Carbon Dioxide 29 mEq/L (19-29); Chloride 101 mEq/L (98-109); Globulin 4.3 g/dL (2.4-3.5); Glucose 136 mg/dL (70-99); Magnesium 1.4 mg/dL (1.6-2.6); Osmolality,Calculated 293 (280-300); Phosphorous 4.3 mg/dL (2.3-4.7); Sodium 139 mEq/L (136-145); Total Protein 6.4 g/dL (6.0-8.3); eGFR For African Americans > 60 (> 60); eGFR For Non-African Americans > 60 (> 60)
[2017-10-24] MEDS: Budesonide/Formoterol 80/4.5 MDI IH SCH (10:56)
[2017-10-24] MEDS: Levalbuterol Neb 0.63 MG/3 ML IH SCH ×2 (10:57→16:20)
[2017-10-24] MEDS ORDERED: Vancomycin (wt based) 1,000 MG VIAL IVPB SCH (11:00)
[2017-10-24] MEDS: Cefepime HCl 2,000 MG in Water for inj. (sterile) 20 ML IVP SCH ×2 (11:52→20:49)
[2017-10-24] MEDS: Heparin 25,000 UNIT/500 ML D5W 25,000 UNIT/500 ML BAG IVC SCH ×2 (12:18→21:19)
[2017-10-24] MEDS: Morphine Sulfate/PF 10mg/10mL 10 MG, Bupivacaine-MPF 0.25% 125 ML in 0.9 % Sodium Chlor... EP SCH (12:19)
[2017-10-24] MEDS: Vancomycin 1,250 MG in D5% in Water 250 ML IVPB SCH ×2 (12:29→23:12)
[2017-10-24 12:46] LABS: INR 1.2
[2017-10-24] MEDS: *HR* Heparin 5,000 UNIT/ML VIAL IVP PRN (14:06)
[2017-10-24] MEDS ORDERED: Cefepime HCl 2,000 MG in Water for inj. (sterile) 20 ML IVP SCH (16:00)
[2017-10-24] MEDS: MethylPREDNISolone 40 MG/ML VIAL IVP SCH ×2 (17:12→23:13)
[2017-10-25] MEDS: Levalbuterol Neb 0.63 MG/3 ML IH SCH ×2 (00:13→07:47)
[2017-10-25] MEDS: Budesonide/Formoterol 80/4.5 MDI IH SCH ×3 (00:14→22:14)
[2017-10-25] MEDS: *HR* HYDROmorphone 2 MG/ML SYRINGE IVP PRN ×7 (02:00→23:22)
[2017-10-25 03:34] LABS: Basophils % 0.1 %; Hematocrit 27.7 % (37.5-50.1); Hemoglobin 8.9 g/dL (12.9-16.9); Immature Granulocytes % 0.6 % (0-4); Lymphocytes # 0.5 K/mcL (0.6-4.6); Lymphocytes % 2.4 %; Mean Corpuscular HGB Conc 32.1 g/dL (31.6-35.5); Mean Corpuscular Hemoglobin 27.3 pg (28.0-33.3); Mean Platelet Volume 10.4 fL (9.4-12.4); Monocytes % 4.7 %; Neutrophils # 18.8 K/mcL (1.6-8.9); Platelet Count 319 K/mcL (140-400); Red Blood Count 3.26 M/mcL (4.19-5.50); Segmented Neutrophils % 92.2 %
[2017-10-25 03:44] LABS: BUN/Creatinine Ratio 36 (6-26); Blood Urea Nitrogen 27 mg/dL (8-26); Calcium 8.6 mg/dL (8.6-10.8); Carbon Dioxide 29 mEq/L (19-29); Chloride 102 mEq/L (98-109); Glucose 175 mg/dL (70-99); Osmolality,Calculated 297 (280-300); Potassium 3.9 mEq/L (3.5-4.5); Sodium 139 mEq/L (136-145); eGFR For African Americans > 60 (> 60); eGFR For Non-African Americans > 60 (> 60)
[2017-10-25] MEDS: Cefepime HCl 2,000 MG in Water for inj. (sterile) 20 ML IVP SCH ×3 (04:38→20:30)
[2017-10-25] MEDS: Ketorolac 15 MG/ML VIAL IVP SCH ×2 (05:59→12:59)
[2017-10-25] MEDS: Tiotropium 18 MCG inhalation IH SCH (07:46)
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
[2017-10-25 07:51] LABS: Acinetobacter baumannii by PCR Not Detected (Not Detect); Candida albicans by PCR Not Detected (Not Detect); Candida glabrata by PCR Not Detected (Not Detect); Candida krusei by PCR Not Detected (Not Detect); Candida parapsilosis by PCR Not Detected (Not Detect); Candida tropicalis by PCR Not Detected (Not Detect); Enterococcus by PCR Not Detected (Not Detect); Escherichia coli by PCR Not Detected (Not Detect); Klebsiella oxytoca by PCR Not Detected (Not Detect); Klebsiella pneumoniae by PCR Not Detected (Not Detect); Pseudomonas aeruginosa by PCR Not Detected (Not Detect); Serratia marcescens by PCR Not Detected (Not Detect); Streptococcus agalactiae(B)PCR Not Detected (Not Detect); Streptococcus by PCR Not Detected (Not Detect); Streptococcus pneumoniae PCR Not Detected (Not Detect); Streptococcus pyogenes (A) PCR Not Detected (Not Detect); mecA Methicillin-Resist Gene ***DETECTED*** (Not Detect)
[2017-10-25 08:04] LABS: Staphylococcus aureus by PCR ***DETECTED*** (Not Detect)
[2017-10-25] MEDS: Chlorhexidine Rinse 15 ML MOUTHWASH MM SCH ×2 (08:10→20:30)
[2017-10-25] MEDS: MethylPREDNISolone 40 MG/ML VIAL IVP SCH ×2 (08:10→16:06)
[2017-10-25] MEDS: Sennosides/Docusate Sodium TABLET PO SCH ×2 (08:11→20:33)
[2017-10-25] MEDS: Morphine Sulfate/PF 10mg/10mL 10 MG, Bupivacaine-MPF 0.25% 125 ML in 0.9 % Sodium Chlor... EP SCH (08:11)
[2017-10-25] MEDS: *HR* OxyCODONE/APAP 5/325 TABLET PO PRN ×3 (08:11→22:26)
[2017-10-25] MEDS: Insulin LISPRO 300 UNITS/3 ML VIAL SQ SCH ×4 (08:15→20:34)
[2017-10-25] MEDS ORDERED: Aspirin Enteric Coated 81 MG Tablet PO SCH (09:00)
[2017-10-25] MEDS ORDERED: Lactulose Oral Soln 20 GM/30 ML UDC PO SCH (09:00)
[2017-10-25] MEDS ORDERED: Furosemide 40 MG/4 ML VIAL IVP SCH (09:00)
[2017-10-25] MEDS ORDERED: *HR* Amiodarone 200 MG TABLET PO SCH (09:00)
--- NOTE | 2017-10-25 09:52 | Cardiothoracic Progress Note ---
Date of Encounter: 10/25/17 Time of Encounter: 09:50 - Assessment and plan (1) Acute and chronic respiratory failure with hypoxia Current Visit: Yes Status: Chronic The patient developed bilateral pneumonia, worse in the left lower lobe. He is on appropriate antibiotics and is improving. We can discontinue his Calderon catheter. At some point in the future we can switch him to by mouth Eliquis from heparin. - Subjective Interval history: The patient has no complaints. He feels much better. His epidural catheter got pulled out yesterday. Vital Signs, Last 4 Hours Temp Pulse Resp BP Pulse Ox 10/25/17 09:00 74 18 137/76 94 10/25/17 08:00 64 20 121/66 99 10/25/17 07:48 20 94 10/25/17 07:30 62 10/25/17 07:25 98.1 F 10/25/17 07:00 63 20 153/90 96 10/25/17 06:00 61 16 146/80 92 Oxgyen Flow Rate Oxygen Flow Rate (LPM) 10 Clinical Data, last 8 Hours Output, Chest Tube Drainage 0 Amount [Right Lower Lateral Chest #2] Output, Chest Tube Drainage 0 Amount [Right Lower Lateral Chest #2] Weight 10/23/17 10/24/17 10/25/17 23:59 23:59 23:59 Weight 78.9 kg 80.2 kg Lungs are clear to percussion and auscultation. Heart is in a regular rate and rhythm. Chest tube drainage is minimal and I do not see an air leak. Chest x- ray done this morning is improved. - Labs 10/25/17 03:03 10/25/17 03:03 Lab Results, Last 24 hours 10/24/17 10/24/17 10/24/17 06:10 09:49 09:49 WBC 17.2 H Hgb 9.3 L Hct 29.7 L Plt Count 305 INR 1.2 APTT 28.8 D Sodium 139 Potassium 4.0 D Chloride 101 Carbon Dioxide 29 BUN 22 Creatinine 0.82 Glucose 136 H Calcium 8.8 Magnesium 1.4 L Total Bilirubin 0.8 AST 24 ALT 26 Alkaline Phosphatase 113 10/24/17 10/24/17 10/25/17 12:28 19:50 03:03 WBC 20.4 H Hgb 8.9 L Hct 27.7 L Plt Count 319 INR APTT 45.6 H D 30.2 Sodium Potassium Chloride Carbon Dioxide BUN Creatinine Glucose Calcium Magnesium Total Bilirubin AST ALT Alkaline Phosphatase 10/25/17 10/25/17 10/25/17 03:03 03:03 09:22 WBC Hgb Hct Plt Count INR APTT 35.4 45.2 H Sodium 139 Potassium 3.9 Chloride 102 Carbon Dioxide 29 BUN 27 H Creatinine 0.76 Glucose 175 H Calcium 8.6 Magnesium Total Bilirubin AST ALT Alkaline Phosphatase - VTE Documentation of Mechanical Device: Intermittent pneumatic compression device Consult Discharge Plan - Plan Referrals: Eleazar Kee CNP [Primary Care Provider] - () Mansoor Cobos MD [Partnered Physician] - Gabo Li MD [Partnered Physician] -
[2017-10-25] MEDS: *HR* Heparin 5,000 UNIT/ML VIAL IVP PRN (10:29)
[2017-10-25] MEDS: Vancomycin 1,250 MG in D5% in Water 250 ML IVPB SCH (10:44)
[2017-10-25] MEDS: Levalbuterol Neb 1.25 MG/3 ML IH SCH ×3 (11:08→22:14)
[2017-10-25] MEDS: Heparin 25,000 UNIT/500 ML D5W 25,000 UNIT/500 ML BAG IVC SCH (17:44)
[2017-10-26] MEDS: MethylPREDNISolone 40 MG/ML VIAL IVP SCH ×3 (00:03→23:24)
[2017-10-26] MEDS: Vancomycin 1,250 MG in D5% in Water 250 ML IVPB SCH (00:03)
[2017-10-26] MEDS: *HR* HYDROmorphone 2 MG/ML SYRINGE IVP PRN ×2 (02:38→05:39)
[2017-10-26] MEDS: Levalbuterol Neb 1.25 MG/3 ML IH SCH ×3 (04:07→22:00)
[2017-10-26] MEDS: *HR* OxyCODONE/APAP 5/325 TABLET PO PRN (05:30)
[2017-10-26] MEDS: Cefepime HCl 2,000 MG in Water for inj. (sterile) 20 ML IVP SCH (05:39)
[2017-10-26 06:13] LABS: Hematocrit 28.1 % (37.5-50.1); Hemoglobin 9.2 g/dL (12.9-16.9); Mean Corpuscular HGB Conc 32.7 g/dL (31.6-35.5); Mean Corpuscular Hemoglobin 27.8 pg (28.0-33.3); Mean Corpuscular Volume 84.9 fL (83.0-100.0); Platelet Count 323 K/mcL (140-400); Red Blood Count 3.31 M/mcL (4.19-5.50); Red Cell Distribution Width 15.1 % (11.5-14.5)
[2017-10-26 06:15] LABS: BUN/Creatinine Ratio 45 (6-26); Blood Urea Nitrogen 35 mg/dL (8-26); Calcium 8.7 mg/dL (8.6-10.8); Carbon Dioxide 26 mEq/L (19-29); Chloride 101 mEq/L (98-109); Glucose 219 mg/dL (70-99); Osmolality,Calculated 301 (280-300); Potassium 3.9 mEq/L (3.5-4.5); Sodium 138 mEq/L (136-145); eGFR For African Americans > 60 (> 60); eGFR For Non-African Americans > 60 (> 60)
--- NOTE | 2017-10-26 06:45 | Pulmonology Progress Note ---
<Pawel Worrell - Last Filed: 10/26/17 11:09> Date of Encounter: 10/26/17 Time of Encounter: 06:45 Assessment and Plan (1) HAP (hospital-acquired pneumonia) Current Visit: Yes Status: Acute CTA chest reveals no pulmonary embolus. Dense bilateral lower lobe consolidation left greater than right suggesting multifocal pneumonia. Indeterminate ground-glass density right upper lobe with retraction, and pleural thickening likely sequela of prior post infectious and/or inflammatory etiology CXR with no acute changes Discontinue Bipap to avoid positive pressure Continue bronchodilators Blood cultures preliminary positive for MRSA Sputum cultures pending to r/o MRSA PNA Discontinue Cefepime Continue empiric Vanc (Day 3) Patient has high risk of decompensation despite medical therapy (2) Bacteremia Current Visit: Yes Status: Acute Blood cultures preliminary positive for MRSA Repeat blood cultures pending Continue empiric Vanc (Day 3) Lactic acid 1.0 (3) Acute and chronic respiratory failure with hypoxia Current Visit: Yes Status: Chronic ABG 7.45/ 42/ 62/ 29/ 92% Discontinue Bipap to avoid positive pressure Continue bronchodilators and high flow supplemental oxygen Continue close observation of his respiratory status. (4) DVT (deep venous thrombosis) Current Visit: Yes Status: Acute Venous duplex both lower extremities revealed acute DVT present in bilateral Gastroc veins and left ATV in the deep veins of the calf. Continue heparin drip for now until more stable, will need intermission coordinator anticoagulation with either resuming home Eliquis or bridging to Coumadin Qualifiers: DVT location: lower extremity Affected thrombotic vein of extremity: other lower extremity vein Chronicity: acute Laterality: bilateral Qualified Code(s): I82.493 - Acute embolism and thrombosis of other specified deep vein of lower extremity, bilateral (5) Spontaneous pneumothorax Current Visit: Yes Status: Acute Chest tubes in place. Cardiothoracic surgery following Continue bronchodilators (6) COPD exacerbation Current Visit: No Status: Acute Discontinue Bipap to avoid positive pressure Wean Solumedrol and start Prednisone Continue antibiotics and bronchodilators (7) Ischemic cardiomyopathy Current Visit: No Status: Chronic Echo 07/30/17 revealed LVEF 50-55% Continue Lasix 40mg IV daily Cardiothoracic surgery following Subjective Principal diagnosis: Spontaneous pneumothorax Interval history: Patient seen and examined resting comfortably in bedside chair. He had no acute events overnight. Cardiothoracic surgery is following the patient for chest tubes. Patient encouraged to get out of bed. Continue Vancomycin for gram positive cocci blood cultures. Anticipate transfer out of ICU. Objective PUL Vital signs: Last Vital Signs Temp 99.1 F 10/26/17 00:00 Pulse 64 10/26/17 06:00 Resp 12 10/26/17 06:00 BP 146/75 10/26/17 06:00 Pulse Ox 95 10/26/17 06:00 General appearance: no acute distress, alert Eyes: nonicteric ENT: oropharynx moist Neck: supple Effort: normal Auscultation: right: diminished breath sounds (Serosanguinous drainage in chest tube chambers, no air leak seen) Percussion: bilateral: not dull Tactile fremitus: bilateral: normal Cardiovascular: regular rate and rhythm Gastrointestinal: normoactive bowel sounds, non-distended Integumentary: normal Extremities: no cyanosis, no edema, no clubbing Musculoskeletal: no deformities, ROM normal normal mental status, non-focal exam mood appropriate, affect normal Results - Laboratory Findings CBC and BMP: 10/26/17 05:51 10/26/17 05:51 ABG ABG pH 7.45 pH Units (7.32-7.45) 10/24/17 09:00 ABG pCO2 42 mmHg (35-45) 10/24/17 09:00 ABG pO2 62 mmHg (85-104) L 10/24/17 09:00 ABG O2 Saturation 92 % (95-98) L 10/24/17 09:00 PT/INR, D-dimer PT 13.0 Seconds (9.4-12.1) H 10/24/17 06:10 Abnormal lab findings: Abnormal lab results WBC 23.9 K/mcL (4.3-11.1) H 10/26/17 05:51 RBC 3.31 M/mcL (4.19-5.50) L 10/26/17 05:51 Hgb 9.2 g/dL (12.9-16.9) L 10/26/17 05:51 Hct 28.1 % (37.5-50.1) L 10/26/17 05:51 MCH 27.8 pg (28.0-33.3) L 10/26/17 05:51 RDW 15.1 % (11.5-14.5) H 10/26/17 05:51 Neutrophils # 18.8 K/mcL (1.6-8.9) H 10/25/17 03:03 Lymphocytes # 0.5 K/mcL (0.6-4.6) L 10/25/17 03:03 PT 13.0 Seconds (9.4-12.1) H 10/24/17 06:10 APTT 73.4 Seconds (26.0-36.0) H 10/26/17 05:51 ABG pO2 62 mmHg (85-104) L 10/24/17 09:00 ABG HCO3 29 mEq/L (21-27) H 10/24/17 09:00 ABG Total CO2 30 mEq/L (20-26) H 10/24/17 09:00 ABG O2 Saturation 92 % (95-98) L 10/24/17 09:00 ABG Base Excess 5 mEq/L (-2 to 3) H 10/24/17 09:00 BUN 35 mg/dL (8-26) H 10/26/17 05:51 BUN/Creatinine Ratio 45 (6-26) H 10/26/17 05:51 Glucose 219 mg/dL (70-99) H 10/26/17 05:51 POC Glucose 222 (58-89) H 10/25/17 19:04 Calculated Osmolality 301 (280-300) H 10/26/17 05:51 Magnesium 1.4 mg/dL (1.6-2.6) L 10/24/17 09:49 B-Natriuretic Peptide 154 pg/mL (0-100) H 10/04/17 18:32 Albumin 2.1 g/dL (3.5-5.0) L 10/24/17 09:49 Globulin 4.3 g/dL (2.4-3.5) H 10/24/17 09:49 Albumin/Globulin Ratio 0.5 (1.1-2.2) L 10/24/17 09:49 Urine Blood Trace (Negative) H 10/05/17 01:52 Staphylococcus sp PCR DETECTED (Not Detect) A 10/24/17 10:25 Staph aureus (PCR) DETECTED (Not Detect) A 10/24/17 10:25 mecA-Methicil Res Gene DETECTED (Not Detect) A 10/24/17 10:25 - Microbiology Findings Microbiology Findings: Microbiology, Last 48 Hours 10/24/17 10:25 Blood Culture - Preliminary Peripheral Venipuncture Gram Positive Cocci 10/25/17 10:50 Sputum Culture - Preliminary Sputum 10/24/17 10:25 Blood Culture - Preliminary Peripheral Venipuncture Gram Positive Cocci - Diagnostic Findings Chest x-ray: report reviewed, image reviewed - Clinical Findings Intake & Output: Intake & Output 10/25/17 10/25/17 10/26/17 15:59 23:59 07:59 Intake Total 123 / 123 450 / 450 490 / 490 Output Total 806 / 806 305 / 305 375 / 375 Balance -683 / -683 145 / 145 115 / 115 - VTE Documentation of Mechanical Device: Intermittent pneumatic compression device Consult Discharge Plan - Plan Referrals: Eleazar Kee CNP [Primary Care Provider] - () Mansoor Cobos MD [Partnered Physician] - Gabo Li MD [Partnered Physician] - <Jayson Zamudio - Last Filed: 10/26/17 11:21> Date of Encounter: 10/26/17 Assessment and Plan (1) Spontaneous pneumothorax Current Visit: Yes Status: Acute (2) COPD (chronic obstructive pulmonary disease) Current Visit: Yes Status: Chronic Qualifiers: COPD type: unspecified COPD Qualified Code(s): J44.9 - Chronic obstructive pulmonary disease, unspecified (3) Former smoker, stopped smoking many years ago Current Visit: Yes Status: Resolved Objective PUL Vital signs: Last Vital Signs Temp 98.1 F 10/26/17 08:17 Pulse 58 10/26/17 10:00 Resp 16 10/26/17 10:00 BP 115/72 10/26/17 10:00 Pulse Ox 96 10/26/17 10:00 Results - Laboratory Findings CBC and BMP: 10/26/17 05:51 10/26/17 05:51 ABG ABG pH 7.45 pH Units (7.32-7.45) 10/24/17 09:00 ABG pCO2 42 mmHg (35-45) 10/24/17 09:00 ABG pO2 62 mmHg (85-104) L 10/24/17 09:00 ABG O2 Saturation 92 % (95-98) L 10/24/17 09:00 PT/INR, D-dimer PT 13.0 Seconds (9.4-12.1) H 10/24/17 06:10 Abnormal lab findings: Abnormal lab results WBC 23.9 K/mcL (4.3-11.1) H 10/26/17 05:51 RBC 3.31 M/mcL (4.19-5.50) L 10/26/17 05:51 Hgb 9.2 g/dL (12.9-16.9) L 10/26/17 05:51 Hct 28.1 % (37.5-50.1) L 10/26/17 05:51 MCH 27.8 pg (28.0-33.3) L 10/26/17 05:51 RDW 15.1 % (11.5-14.5) H 10/26/17 05:51 Neutrophils # 21.8 K/mcL (1.6-8.9) H 10/26/17 05:51 Reactive Lymphocytes Present (Not Present) A 10/26/17 05:51 PT 13.0 Seconds (9.4-12.1) H 10/24/17 06:10 APTT 73.4 Seconds (26.0-36.0) H 10/26/17 05:51 ABG pO2 62 mmHg (85-104) L 10/24/17 09:00 ABG HCO3 29 mEq/L (21-27) H 10/24/17 09:00 ABG Total CO2 30 mEq/L (20-26) H 10/24/17 09:00 ABG O2 Saturation 92 % (95-98) L 10/24/17 09:00 ABG Base Excess 5 mEq/L (-2 to 3) H 10/24/17 09:00 BUN 35 mg/dL (8-26) H 10/26/17 05:51 BUN/Creatinine Ratio 45 (6-26) H 10/26/17 05:51 Glucose 219 mg/dL (70-99) H 10/26/17 05:51 POC Glucose 224 (58-89) H 10/26/17 11:09 Calculated Osmolality 301 (280-300) H 10/26/17 05:51 Magnesium 1.4 mg/dL (1.6-2.6) L 10/24/17 09:49 B-Natriuretic Peptide 154 pg/mL (0-100) H 10/04/17 18:32 Albumin 2.1 g/dL (3.5-5.0) L 10/24/17 09:49 Globulin 4.3 g/dL (2.4-3.5) H 10/24/17 09:49 Albumin/Globulin Ratio 0.5 (1.1-2.2) L 10/24/17 09:49 Urine Blood Trace (Negative) H 10/05/17 01:52 Staphylococcus sp PCR DETECTED (Not Detect) A 10/24/17 10:25 Staph aureus (PCR) DETECTED (Not Detect) A 10/24/17 10:25 mecA-Methicil Res Gene DETECTED (Not Detect) A 10/24/17 10:25 - Microbiology Findings Microbiology Findings: Microbiology, Last 48 Hours 10/24/17 10:25 Blood Culture - Preliminary Peripheral Venipuncture Gram Positive Cocci 10/25/17 10:50 Sputum Culture - Preliminary Sputum 10/24/17 10:25 Blood Culture - Preliminary Peripheral Venipuncture Gram Positive Cocci - Clinical Findings Intake & Output: Intake & Output 10/25/17 10/26/17 10/26/17 23:59 07:59 15:59 Intake Total 450 / 450 490 / 490 Output Total 305 / 305 375 / 375 750 / 750 Balance 145 / 145 115 / 115 -750 / -750 - Attending Attestation I examined this patient and my medical decision-making was reviewed with the Resident Physician. I agree with the documented findings, disposition and treatment plan as described except to the extent set forth below. Patient seen and examined. Labs, radiology, chart personally reviewed. Agree with resident's history and physical, assessment, plan with following comments: LEARNING OFFICER: Patient follows commands, Pulmonary: Acceptable oxygenation and ventilation. Patient is feeling much better and continued to lower his FiO2. Patient will be on vancomycin and anticoagulation. Discussed with Dr. Blackwell and patient can be transferred to [facility]. Cardiovascular: stable GI: Nutrition per dietary and GI prophylaxis per routine Heme: DVT prophylaxis per routine ID: Continue antibiotics and plan to de-escalation Renal; urine out put and renal funtion reviewed Endorcine: blood glucose is monitored Lines: all lines checked and no evidence of infections Skin: skin care to prevent pressure ulcers per nursing routine care
[2017-10-26 07:49] LABS: Lymphocytes # 1.7 K/mcL (0.6-4.6); Monocytes # 0.5 K/mcL (0.0-1.3); Neutrophils # 21.8 K/mcL (1.6-8.9)
[2017-10-26 07:50] LABS: Platelet Estimate Normal (Normal); Reactive Lymphocytes Present (Not Present)
--- NOTE | 2017-10-26 07:57 | Cardiothoracic Progress Note ---
Date of Encounter: 10/26/17 Time of Encounter: 07:47 - Assessment and plan (1) Spontaneous pneumothorax Current Visit: Yes Status: Acute The patient's respiratory status has improved dramatically over the last 2 days. He is breathing comfortably with supplement oxygen. Chest tube #2 has a small intermittent air leak on suction. The chest tubes remained on water suction. He will be transferred to a stepdown bed when a bed is available. The assessment and plan as outlined above was discussed with the patient and/or family members who expressed understanding and agreement. All questions were answered. - Subjective Procedure(s) Performed: POD#7 S/P Right thoracotomy with apical bleb resection Interval history: The patient's respiratory status has improved dramatically over the last 2 days. He is currently on supplemental oxygen via nasal cannula and saturating well. He feels that his overall health status has improved. Vital Signs, Last 4 Hours Pulse Resp BP Pulse Ox 10/26/17 06:00 64 12 146/75 95 10/26/17 05:00 70 12 150/83 93 10/26/17 04:07 18 91 10/26/17 04:00 50 13 121/69 90 Oxgyen Flow Rate Oxygen Flow Rate (LPM) 4 Clinical Data, last 8 Hours Output, Chest Tube Drainage 15 Amount [Right Lower Lateral Chest #2] Output, Chest Tube Drainage 0 Amount [Right Lower Lateral Chest #2] Output, Chest Tube Drainage 10 Amount [Right Lower Lateral Chest #2] Output, Chest Tube Drainage 0 Amount [Right Lateral Chest #1 ] Output, Chest Tube Drainage 0 Amount [Right Lateral Chest #1 ] Output, Chest Tube Drainage 0 Amount [Right Lateral Chest #1 ] Output, Urine Amount 350 Weight 10/24/17 10/25/17 10/26/17 23:59 23:59 23:59 Weight 78.9 kg 80.2 kg - Physical Examination General: Conversant, No Apparent Distress Neck: No JVD, Normal carotid pulses Cardiac: Reg Rate and Rhythm, Normal S1 and S2, No Murmur Incision: No signs of infection, Dry/intact dressing Chest tubes: Minimal drainage, Air leak (Chest tube #2) Lungs: Normal Breath Sounds, No Wheeze, Rales, Rhonchi Neuro: Alert and responsive, No focal deficits noted Vascular: Normal capillary refill Extremities: No Clubbing, No Cyanosis, No Edema - Labs 10/26/17 05:51 10/26/17 05:51 Lab Results, Last 24 hours 10/25/17 10/25/17 10/25/17 09:22 17:05 23:53 WBC Hgb Hct Plt Count APTT 45.2 H 58.3 H 54.2 H Sodium Potassium Chloride Carbon Dioxide BUN Creatinine Glucose Calcium 10/26/17 10/26/17 10/26/17 05:51 05:51 05:51 WBC 23.9 H Hgb 9.2 L Hct 28.1 L Plt Count 323 APTT 73.4 H Sodium 138 Potassium 3.9 Chloride 101 Carbon Dioxide 26 BUN 35 H Creatinine 0.78 Glucose 219 H Calcium 8.7 - Imaging Chest Xray: image reviewed (Small right apical pneumothorax. Improved aeration in both bases.) - VTE Documentation of Mechanical Device: Intermittent pneumatic compression device Consult Discharge Plan - Plan Referrals: Eleazar Kee CNP [Primary Care Provider] - () Mansoor Cobos MD [Partnered Physician] - Gabo Li MD [Partnered Physician] -
[2017-10-26] MEDS ORDERED: Acetaminophen 325 MG TABLET PO PRN ×2 (08:13→10:18)
[2017-10-26] MEDS ORDERED: *HR* HYDROmorphone (PF) 1 MG/ML SYRINGE IVP PRN (08:13)
[2017-10-26] MEDS ORDERED: MOM Conc 10 ML UD.LIQ PO PRN ×2 (08:13→10:18)
[2017-10-26] MEDS ORDERED: *HR* Dextrose 50 % in Water (Syg) 50 ML SYRINGE IVP PRN ×2 (08:13→10:18)
[2017-10-26] MEDS ORDERED: Naloxone 0.4 MG/ML INJ IVP PRN ×2 (08:13→10:18)
[2017-10-26] MEDS ORDERED: Ondansetron 4 MG/2 ML VIAL IVP PRN ×2 (08:13→10:18)
[2017-10-26] MEDS ORDERED: *HR* HYDROcodone/Acet 5/325 mg TABLET PO PRN (08:13)
[2017-10-26] MEDS ORDERED: Nitroglycerin 0.4 MG TAB.SUBL SL PRN ×2 (08:13→10:18)
[2017-10-26] MEDS ORDERED: Albuterol 2.5 MG/3 ML NEBULIZER IH PRN ×2 (08:13→10:18)
[2017-10-26] MEDS ORDERED: Heparin 25,000 UNIT/500 ML D5W 25,000 UNIT/500 ML BAG IVC SCH (08:13)
[2017-10-26] MEDS ORDERED: Dextrose Gel 15 GM PO PRN ×4 (08:13→10:18)
[2017-10-26] MEDS ORDERED: D5% in Water 1,000 ML IVC PRN ×2 (08:13→10:18)
[2017-10-26] MEDS ORDERED: Tiotropium 18 MCG inhalation IH SCH (09:00)
[2017-10-26] MEDS ORDERED: Aspirin Enteric Coated 81 MG Tablet PO SCH (09:00)
[2017-10-26] MEDS ORDERED: Chlorhexidine Rinse 15 ML MOUTHWASH MM SCH (09:00)
[2017-10-26] MEDS ORDERED: *HR* Amiodarone 200 MG TABLET PO SCH (09:00)
[2017-10-26] MEDS ORDERED: Furosemide 40 MG/4 ML VIAL IVP SCH (09:00)
[2017-10-26] MEDS ORDERED: Lactulose Oral Soln 20 GM/30 ML UDC PO SCH (09:00)
[2017-10-26] MEDS ORDERED: Sennosides/Docusate Sodium TABLET PO SCH (09:00)
[2017-10-26] MEDS ORDERED: Levalbuterol Neb 1.25 MG/3 ML IH SCH (10:00)
[2017-10-26] MEDS: Budesonide/Formoterol 80/4.5 MDI IH SCH ×3 (10:31→22:00)
[2017-10-26] MEDS ORDERED: Vancomycin 1,500 MG in D5% in Water 250 ML IVPB SCH ×2 (11:00)
[2017-10-26] MEDS: Insulin LISPRO 300 UNITS/3 ML VIAL SQ SCH ×3 (11:29→23:24)
[2017-10-26] MEDS ORDERED: Insulin LISPRO 300 UNITS/3 ML VIAL SQ SCH ×2 (11:30→21:00)
[2017-10-26] MEDS: Vancomycin 1,500 MG in D5% in Water 250 ML IVPB SCH (11:30)
[2017-10-26] MEDS: *HR* HYDROmorphone (PF) 1 MG/ML SYRINGE IVP PRN ×5 (12:36→23:23)
[2017-10-26] MEDS: *HR* HYDROcodone/Acet 5/325 mg TABLET PO PRN ×3 (12:36→23:23)
[2017-10-26] MEDS ORDERED: MethylPREDNISolone 40 MG/ML VIAL IVP SCH ×2 (16:00)
[2017-10-26] MEDS: Heparin 25,000 UNIT/500 ML D5W 25,000 UNIT/500 ML BAG IVC SCH (17:47)
[2017-10-26] MEDS: Chlorhexidine Rinse 15 ML MOUTHWASH MM SCH (20:08)
[2017-10-26] MEDS: Sennosides/Docusate Sodium TABLET PO SCH (20:09)
[2017-10-27] MEDS: Levalbuterol Neb 1.25 MG/3 ML IH SCH ×4 (04:45→21:44)
[2017-10-27] MEDS: *HR* HYDROmorphone (PF) 1 MG/ML SYRINGE IVP PRN ×6 (06:06→22:16)
[2017-10-27] MEDS: *HR* HYDROcodone/Acet 5/325 mg TABLET PO PRN ×4 (06:07→22:16)
[2017-10-27 06:43] LABS: Basophils % 0.1 %; Hematocrit 29.3 % (37.5-50.1); Hemoglobin 9.3 g/dL (12.9-16.9); Lymphocytes # 0.8 K/mcL (0.6-4.6); Lymphocytes % 3.9 %; Mean Corpuscular HGB Conc 31.7 g/dL (31.6-35.5); Mean Corpuscular Hemoglobin 26.7 pg (28.0-33.3); Mean Corpuscular Volume 84.2 fL (83.0-100.0); Mean Platelet Volume 10.7 fL (9.4-12.4); Monocytes # 1.1 K/mcL (0.0-1.3); Monocytes % 5.2 %; Neutrophils # 18.6 K/mcL (1.6-8.9); Nucleated Red Blood Cells 0.1 /100 WBC (0); Platelet Count 422 K/mcL (140-400); Red Blood Count 3.48 M/mcL (4.19-5.50); Red Cell Distribution Width 14.9 % (11.5-14.5); Segmented Neutrophils % 88.8 %
[2017-10-27 06:56] LABS: BUN/Creatinine Ratio 37 (6-26); Blood Urea Nitrogen 29 mg/dL (8-26); Carbon Dioxide 30 mEq/L (19-29); Chloride 99 mEq/L (98-109); Glucose 170 mg/dL (70-99); Osmolality,Calculated 296 (280-300); Potassium 3.9 mEq/L (3.5-4.5); Sodium 138 mEq/L (136-145); eGFR For African Americans > 60 (> 60); eGFR For Non-African Americans > 60 (> 60)
--- NOTE | 2017-10-27 07:12 | Cardiothoracic Progress Note ---
Date of Encounter: 10/27/17 Time of Encounter: 07:10 - Assessment and plan (1) Spontaneous pneumothorax Current Visit: Yes Status: Acute The patient's respiratory status has improved dramatically over the last 2 days. He is breathing comfortably with supplement oxygen. Chest tube #2 has a small intermittent air leak on suction. The chest tubes remained on water suction. The assessment and plan as outlined above was discussed with the patient and/or family members who expressed understanding and agreement. All questions were answered. - Subjective Procedure(s) Performed: POD#8 S/P Right thoracotomy with apical bleb resection Interval history: The patient's respiratory status has improved dramatically; however, he did have a short lived episode of shortness of breath this morning. It cleared after he used his incentive spirometry. He is currently on supplemental oxygen via nasal cannula and saturating well. He feels that his overall health status has improved. Vital Signs, Last 4 Hours Temp Pulse Resp BP Pulse Ox 10/27/17 04:46 18 91 10/27/17 04:06 97.9 F 50 18 127/82 93 Oxgyen Flow Rate Oxygen Flow Rate (LPM) 4 Clinical Data, last 8 Hours Output, Chest Tube Drainage 20 Amount [Right Lower Lateral Chest #2] Output, Chest Tube Drainage 20 Amount [Right Lower Lateral Chest #2] Output, Chest Tube Drainage 5 Amount [Right Lateral Chest #1 ] Output, Chest Tube Drainage 5 Amount [Right Lateral Chest #1 ] Output, Urine Amount 350 Weight 10/25/17 10/26/17 10/27/17 23:59 23:59 23:59 Weight 80.2 kg 80.1 kg - Physical Examination General: Conversant, No Apparent Distress Neck: No JVD, Normal carotid pulses Incision: No signs of infection, Dry/intact dressing Chest tubes: Minimal drainage, Air leak (Chest tube #2.) Lungs: Normal Breath Sounds, No Wheeze, Rales, Rhonchi Neuro: Alert and responsive, No focal deficits noted Vascular: Normal capillary refill Extremities: No Clubbing, No Cyanosis, No Edema - Labs 10/27/17 05:50 10/27/17 05:50 Lab Results, Last 24 hours 10/27/17 10/27/17 05:50 05:50 WBC 21.0 H Hgb 9.3 L Hct 29.3 L Plt Count 422 H Sodium 138 Potassium 3.9 Chloride 99 Carbon Dioxide 30 H BUN 29 H Creatinine 0.78 Glucose 170 H Calcium 9.0 - VTE Documentation of Mechanical Device: Intermittent pneumatic compression device Consult Discharge Plan - Plan Referrals: Eleazar Kee CNP [Primary Care Provider] - () Mansoor Cobos MD [Partnered Physician] - Gabo Li MD [Partnered Physician] -
[2017-10-27] MEDS: Chlorhexidine Rinse 15 ML MOUTHWASH MM SCH ×2 (07:57→21:09)
[2017-10-27] MEDS: Sennosides/Docusate Sodium TABLET PO SCH ×2 (07:58→21:08)
[2017-10-27] MEDS: Aspirin Enteric Coated 81 MG Tablet PO SCH (07:58)
[2017-10-27] MEDS: predniSONE 20 MG TABLET PO SCH (07:59)
[2017-10-27] MEDS: *HR* Amiodarone 200 MG TABLET PO SCH (07:59)
[2017-10-27] MEDS: Lactulose Oral Soln 20 GM/30 ML UDC PO SCH (08:00)
[2017-10-27] MEDS: Insulin LISPRO 300 UNITS/3 ML VIAL SQ SCH ×4 (08:00→21:10)
[2017-10-27] MEDS ORDERED: Furosemide 40 MG/4 ML VIAL IVP SCH (09:00)
[2017-10-27] MEDS: Heparin 25,000 UNIT/500 ML D5W 25,000 UNIT/500 ML BAG IVC SCH ×2 (09:59→23:25)
--- NOTE | 2017-10-27 10:34 | Internal Med Progress Note ---
Date of Encounter: 10/27/17 Time of Encounter: 10:34 - Assessment and plan (1) MRSA (methicillin resistant Staphylococcus aureus) infection Current Visit: Yes Status: Acute Assessment and plan: Bacteremia. Currently on IV abx. Will need to complete at least 2 week course. (2) Bacteremia Current Visit: Yes Status: Acute Assessment and plan: Due to MRSA. (3) Acute and chronic respiratory failure with hypoxia Current Visit: Yes Status: Chronic Assessment and plan: Supplemental oxygen as needed. (4) DVT (deep venous thrombosis) Current Visit: Yes Status: Acute Assessment and plan: Acute DVTs in bilateral gastroc veins and L ant tibial vein. On heparin drip at this time. Qualifiers: DVT location: lower extremity Affected thrombotic vein of extremity: other lower extremity vein Chronicity: acute Laterality: bilateral Qualified Code(s): I82.493 - Acute embolism and thrombosis of other specified deep vein of lower extremity, bilateral (5) Spontaneous pneumothorax Current Visit: Yes Status: Acute Assessment and plan: S/P thoracotomy. Plan per CT surgery. (6) COPD (chronic obstructive pulmonary disease) Current Visit: Yes Status: Chronic Assessment and plan: Stable - not in exacerbation Continue DuoNeb breathing treatment, Symbicort, O2 via [place] Mucomyst added today. Qualifiers: COPD type: emphysema Emphysema type: centrilobular Qualified Code(s): J43.2 - Centrilobular emphysema (7) Atrial fibrillation Current Visit: Yes Status: Chronic Assessment and plan: Currently on heparin drip. Qualifiers: Atrial fibrillation type: chronic Qualified Code(s): I48.2 - Chronic atrial fibrillation (8) Chronic systolic CHF (congestive heart failure) Current Visit: No Status: Chronic Assessment and plan: Supportive care. (9) Hypertension Current Visit: No Status: Chronic Assessment and plan: Controlled. Continue current meds. Qualifiers: Hypertension type: essential hypertension Qualified Code(s): I10 - Essential (primary) hypertension - Subjective Interval history: Mr Johnson is currently admitted for R PTX s/p thoracotomy complicated by bilateral DVTs and MRSA bacteremia. He remains moderate to high risk due to potential for worsening respiratory and clinical status. Mr Johnson was transferred from ICU yesterday. He is on IV abx for MRSA. No fever or chills at this time. No cough. Chest tubes still to suction. On heparin drip for DVTs. No abd pain. Appetite OK. Breathing doing OK. - Constitutional Vitals: Temp Pulse Resp BP Pulse Ox 98.1 F 61 18 147/83 92 10/27/17 07:07 10/27/17 07:50 10/27/17 07:07 10/27/17 07:07 10/27/17 07:50 General appearance: Present: cooperative, A&O X 3, pleasant, answers questions appropriately - Head Head exam: Present: atraumatic, normocephalic - Eye Eye exam: Present: conjuntiva pink - ENT ENT exam: Present: mucous membranes moist - Respiratory Respiratory exam: Present: decreased breath sounds. Absent: wheezes - Cardiovascular Cardiovascular exam: Present: RRR. Absent: tachycardia - GI/Abdominal GI/Abdominal exam: Present: soft. Absent: tenderness - Extremities Exam Extremities exam: Present: warm. Absent: tenderness - Neurological Exam Neurological exam: Present: alert, oriented X3, no focal deficits - Skin Skin exam: Present: dry, warm. Absent: rash Internal Medicine: Result - Labs CBC & Chem 7: 10/27/17 05:50 10/27/17 05:50 Labs: Short CBC 10/27/17 Range/Units 05:50 WBC 21.0 H (4.3-11.1) K/mcL Hgb 9.3 L (12.9-16.9) g/dL Hct 29.3 L (37.5-50.1) % Plt Count 422 H (140-400) K/mcL Neutrophils # 18.6 H (1.6-8.9) K/mcL BMP 10/27/17 05:50 Sodium 138 Potassium 3.9 Chloride 99 Carbon Dioxide 30 H BUN 29 H Creatinine 0.78 Glucose 170 H Calcium 9.0 - ABG Interpretation ABG results: ABG ABG pH 7.45 pH Units (7.32-7.45) 10/24/17 09:00 ABG pCO2 42 mmHg (35-45) 10/24/17 09:00 ABG pO2 62 mmHg (85-104) L 10/24/17 09:00 ABG O2 Saturation 92 % (95-98) L 10/24/17 09:00 PT/INR, D-dimer PT 13.0 Seconds (9.4-12.1) H 10/24/17 06:10 - VTE Documentation of Mechanical Device: Intermittent pneumatic compression device Consult Discharge Plan - Plan Referrals: Eleazar Kee CNP [Primary Care Provider] - () Mansoor Cobos MD [Partnered Physician] - Gabo Li MD [Partnered Physician] -
[2017-10-27] MEDS: Budesonide/Formoterol 80/4.5 MDI IH SCH ×2 (10:36→21:43)
[2017-10-27] MEDS: Tiotropium 18 MCG inhalation IH SCH (10:37)
[2017-10-27] MEDS: Vancomycin 1,500 MG in D5% in Water 250 ML IVPB SCH ×3 (11:35→22:17)
[2017-10-27] MEDS: MethylPREDNISolone 40 MG/ML VIAL IVP SCH (12:13)
[2017-10-27] MEDS: Acetylcysteine 10% 2 ML INHSOL IH SCH ×2 (16:48→21:44)
[2017-10-28] MEDS: *HR* HYDROcodone/Acet 5/325 mg TABLET PO PRN ×4 (02:22→20:39)
[2017-10-28] MEDS: *HR* HYDROmorphone (PF) 1 MG/ML SYRINGE IVP PRN ×6 (02:22→21:25)
[2017-10-28] MEDS: Levalbuterol Neb 1.25 MG/3 ML IH SCH ×4 (04:37→21:14)
[2017-10-28] MEDS: Acetylcysteine 10% 2 ML INHSOL IH SCH ×4 (04:37→21:16)
[2017-10-28 07:58] LABS: Basophils # 0.1 K/mcL (0.0-0.2); Basophils % 0.2 %; Eosinophils % 0.1 %; Hematocrit 29.4 % (37.5-50.1); Hemoglobin 9.2 g/dL (12.9-16.9); Immature Granulocytes % 2.5 % (0-4); Lymphocytes # 2.3 K/mcL (0.6-4.6); Lymphocytes % 11.5 %; Mean Corpuscular HGB Conc 31.3 g/dL (31.6-35.5); Mean Corpuscular Hemoglobin 27.3 pg (28.0-33.3); Mean Corpuscular Volume 87.2 fL (83.0-100.0); Mean Platelet Volume 11.1 fL (9.4-12.4); Monocytes # 2.1 K/mcL (0.0-1.3); Monocytes % 10.2 %; Neutrophils # 15.3 K/mcL (1.6-8.9); Nucleated Red Blood Cells 0.1 /100 WBC (0); Platelet Count 402 K/mcL (140-400); Red Blood Count 3.37 M/mcL (4.19-5.50); Segmented Neutrophils % 75.5 %
[2017-10-28 08:10] LABS: BUN/Creatinine Ratio 31 (6-26); Blood Urea Nitrogen 24 mg/dL (8-26); Calcium 8.8 mg/dL (8.6-10.8); Carbon Dioxide 34 mEq/L (19-29); Chloride 99 mEq/L (98-109); Glucose 110 mg/dL (70-99); Osmolality,Calculated 295 (280-300); Potassium 3.4 mEq/L (3.5-4.5); Sodium 140 mEq/L (136-145); eGFR For African Americans > 60 (> 60); eGFR For Non-African Americans > 60 (> 60)
--- NOTE | 2017-10-28 08:19 | Cardiothoracic Progress Note ---
Date of Encounter: 10/28/17 Time of Encounter: 08:17 - Assessment and plan (1) Spontaneous pneumothorax Current Visit: Yes Status: Acute The patient's respiratory status has improved dramatically over the last few days. He is breathing comfortably with supplement oxygen. Chest tube #2 has a small intermittent air leak on suction. The chest tubes remained on suction. The assessment and plan as outlined above was discussed with the patient and/or family members who expressed understanding and agreement. All questions were answered. - Subjective Procedure(s) Performed: POD#9 S/P Right thoracotomy with apical bleb resection Interval history: The patient's respiratory status continues to improve. He is sitting in a chair at the bedside breathing comfortably. Vital Signs, Last 4 Hours Temp Pulse Resp Pulse Ox 10/28/17 06:48 98.1 F 70 17 92 10/28/17 04:37 18 96 Oxgyen Flow Rate Oxygen Flow Rate (LPM) 3.5 Weight 10/26/17 10/27/17 10/28/17 23:59 23:59 23:59 Weight 80.1 kg - Physical Examination General: Conversant, No Apparent Distress Neck: No JVD, Normal carotid pulses Cardiac: Reg Rate and Rhythm, Normal S1 and S2, No Murmur Incision: No signs of infection, Dry/intact dressing Chest tubes: Minimal drainage, Air leak (Chest tube #2) Lungs: Normal Breath Sounds, No Wheeze, Rales, Rhonchi Neuro: Alert and responsive, No focal deficits noted Vascular: Normal capillary refill Extremities: No Clubbing, No Cyanosis, No Edema - Labs 10/28/17 07:04 10/28/17 07:04 Lab Results, Last 24 hours 10/27/17 10/28/17 10/28/17 13:33 07:04 07:04 WBC 20.2 H Hgb 9.2 L Hct 29.4 L Plt Count 402 H APTT 91.3 H Sodium 140 Potassium 3.4 L Chloride 99 Carbon Dioxide 34 H BUN 24 Creatinine 0.77 Glucose 110 H Calcium 8.8 10/28/17 07:04 WBC Hgb Hct Plt Count APTT 95.1 H Sodium Potassium Chloride Carbon Dioxide BUN Creatinine Glucose Calcium - Imaging Chest Xray: image reviewed (Small right apical pneumothorax.) - VTE Documentation of Mechanical Device: Intermittent pneumatic compression device Consult Discharge Plan - Plan Referrals: Eleazar Kee CNP [Primary Care Provider] - () Mansoor Cobos MD [Partnered Physician] - Gabo Li MD [Partnered Physician] -
[2017-10-28] MEDS ORDERED: Furosemide 20 MG TABLET PO PRN (08:37)
[2017-10-28] MEDS: Insulin LISPRO 300 UNITS/3 ML VIAL SQ SCH ×4 (08:40→20:40)
[2017-10-28] MEDS: *HR* Amiodarone 200 MG TABLET PO SCH (08:42)
[2017-10-28] MEDS: Aspirin Enteric Coated 81 MG Tablet PO SCH (08:43)
[2017-10-28] MEDS: predniSONE 20 MG TABLET PO SCH (08:43)
[2017-10-28] MEDS: Sennosides/Docusate Sodium TABLET PO SCH ×2 (08:44→20:39)
[2017-10-28] MEDS: Chlorhexidine Rinse 15 ML MOUTHWASH MM SCH ×2 (08:44→20:40)
[2017-10-28] MEDS: Lactulose Oral Soln 20 GM/30 ML UDC PO SCH (08:44)
[2017-10-28] MEDS: Budesonide/Formoterol 80/4.5 MDI IH SCH ×2 (09:35→21:15)
[2017-10-28] MEDS: Tiotropium 18 MCG inhalation IH SCH (09:45)
[2017-10-28] MEDS: *HR* Enoxaparin 80 MG/0.8 ML SYRINGE SQ SCH (12:02)
[2017-10-28] MEDS: Vancomycin 1,500 MG in D5% in Water 250 ML IVPB SCH (12:03)
--- NOTE | 2017-10-28 13:07 | Internal Med Progress Note ---
Date of Encounter: 10/28/17 Time of Encounter: 11:45 - Assessment and plan (1) MRSA (methicillin resistant Staphylococcus aureus) infection Current Visit: Yes Status: Acute Assessment and plan: MRSA bacteremia. On IV Vancomycin and slowly improving. Will compete at least 2 weeks of IV abx. (2) Bacteremia Current Visit: Yes Status: Acute Assessment and plan: Due to MRSA. (3) Acute and chronic respiratory failure with hypoxia Current Visit: Yes Status: Chronic Assessment and plan: Supplemental oxygen as needed. (4) DVT (deep venous thrombosis) Current Visit: Yes Status: Acute Assessment and plan: Acute DVTs in bilateral gastroc veins and L ant tibial vein. Transition from heparin drip to full dose Lovenox. Qualifiers: DVT location: lower extremity Affected thrombotic vein of extremity: other lower extremity vein Chronicity: acute Laterality: bilateral Qualified Code(s): I82.493 - Acute embolism and thrombosis of other specified deep vein of lower extremity, bilateral (5) Spontaneous pneumothorax Current Visit: Yes Status: Acute Assessment and plan: S/P thoracotomy. Plan per CT surgery. (6) COPD (chronic obstructive pulmonary disease) Current Visit: Yes Status: Chronic Assessment and plan: Stable - not in exacerbation Continue DuoNeb breathing treatment, Symbicort, O2 via NC Mucomyst added. Qualifiers: COPD type: emphysema Emphysema type: centrilobular Qualified Code(s): J43.2 - Centrilobular emphysema (7) Atrial fibrillation Current Visit: Yes Status: Chronic Assessment and plan: Changing heparin drip to Lovenox today. Qualifiers: Atrial fibrillation type: chronic Qualified Code(s): I48.2 - Chronic atrial fibrillation (8) Chronic systolic CHF (congestive heart failure) Current Visit: No Status: Chronic Assessment and plan: Supportive care. (9) Hypertension Current Visit: No Status: Chronic Assessment and plan: Controlled. Continue current meds. Qualifiers: Hypertension type: essential hypertension Qualified Code(s): I10 - Essential (primary) hypertension - Subjective Interval history: Mr Johnson is currently admitted for R PTX s/p thoracotomy complicated by bilateral DVTs and MRSA bacteremia. He remains moderate to high risk due to potential for worsening respiratory and clinical status. Mr Johnson is resting comforably in bed at this time. Feels breathing has been doing better. No fever or chills. WBC still elevated. No diarrhea or other new symptoms. - Constitutional Vitals: Temp Pulse Resp BP Pulse Ox 98.1 F 68 18 132/84 90 10/28/17 10:51 10/28/17 12:05 10/28/17 10:51 10/28/17 10:51 10/28/17 10:51 General appearance: Present: cooperative, A&O X 3, pleasant, answers questions appropriately - Head Head exam: Present: atraumatic, normocephalic - Eye Eye exam: Present: EOMI, conjuntiva pink - ENT ENT exam: Present: mucous membranes moist - Respiratory Respiratory exam: Present: decreased breath sounds. Absent: rhonchi, wheezes - Cardiovascular Cardiovascular exam: Present: RRR. Absent: tachycardia - GI/Abdominal GI/Abdominal exam: Present: soft. Absent: tenderness - Extremities Exam Extremities exam: Present: warm. Absent: tenderness - Neurological Exam Neurological exam: Present: alert, oriented X3, no focal deficits - Skin Skin exam: Present: warm. Absent: rash Internal Medicine: Result - Labs CBC & Chem 7: 10/28/17 07:04 10/28/17 07:04 Labs: Short CBC 10/28/17 Range/Units 07:04 WBC 20.2 H (4.3-11.1) K/mcL Hgb 9.2 L (12.9-16.9) g/dL Hct 29.4 L (37.5-50.1) % Plt Count 402 H (140-400) K/mcL Neutrophils # 15.3 H (1.6-8.9) K/mcL BMP 10/28/17 07:04 Sodium 140 Potassium 3.4 L Chloride 99 Carbon Dioxide 34 H BUN 24 Creatinine 0.77 Glucose 110 H Calcium 8.8 - ABG Interpretation ABG results: ABG ABG pH 7.45 pH Units (7.32-7.45) 10/24/17 09:00 ABG pCO2 42 mmHg (35-45) 10/24/17 09:00 ABG pO2 62 mmHg (85-104) L 10/24/17 09:00 ABG O2 Saturation 92 % (95-98) L 10/24/17 09:00 PT/INR, D-dimer PT 13.0 Seconds (9.4-12.1) H 10/24/17 06:10 - Impressions Impressions Chest X-Ray 10/27/17 07:12 IMPRESSION: Stable examination with 2 right-sided chest tubes and persistent small right apical pneumothorax. D/ / Conrad Bird MD / Conrad Bird MD Interpreting Provider: Conrad Bird MD Chest X-Ray 10/28/17 06:00 IMPRESSION: Mild bibasilar atelectasis which has increased since yesterday. Tiny right apical pneumothorax which overall appears unchanged. Moderate bullous changes. D/ / Jeff Cruz MD / Jeff Cruz MD Interpreting Provider: Jeff Cruz MD - VTE Documentation of Mechanical Device: Intermittent pneumatic compression device Consult Discharge Plan - Plan Referrals: Eleazar Kee CNP [Primary Care Provider] - () Mansoor Cobos MD [Partnered Physician] - Gabo Li MD [Partnered Physician] -
[2017-10-29] MEDS: *HR* Enoxaparin 80 MG/0.8 ML SYRINGE SQ SCH ×2 (00:29→11:36)
[2017-10-29] MEDS: *HR* HYDROmorphone (PF) 1 MG/ML SYRINGE IVP PRN ×7 (00:29→22:27)
[2017-10-29] MEDS: Vancomycin 1,500 MG in D5% in Water 250 ML IVPB SCH ×3 (00:30→22:27)
[2017-10-29] MEDS: *HR* HYDROcodone/Acet 5/325 mg TABLET PO PRN ×3 (02:39→15:13)
[2017-10-29] MEDS: Acetylcysteine 10% 2 ML INHSOL IH SCH ×4 (04:31→22:55)
[2017-10-29] MEDS: Levalbuterol Neb 1.25 MG/3 ML IH SCH ×4 (04:31→22:53)
[2017-10-29] MEDS: Sennosides/Docusate Sodium TABLET PO SCH ×2 (08:11→21:23)
[2017-10-29] MEDS: Aspirin Enteric Coated 81 MG Tablet PO SCH (08:11)
[2017-10-29] MEDS: Chlorhexidine Rinse 15 ML MOUTHWASH MM SCH ×2 (08:11→21:24)
[2017-10-29] MEDS: Insulin LISPRO 300 UNITS/3 ML VIAL SQ SCH ×4 (08:12→21:15)
[2017-10-29] MEDS: *HR* Amiodarone 200 MG TABLET PO SCH (08:12)
[2017-10-29] MEDS: predniSONE 20 MG TABLET PO SCH (08:12)
[2017-10-29] MEDS: Lactulose Oral Soln 20 GM/30 ML UDC PO SCH (08:12)
[2017-10-29] MEDS: Budesonide/Formoterol 80/4.5 MDI IH SCH ×2 (10:02→22:53)
[2017-10-29] MEDS: Tiotropium 18 MCG inhalation IH SCH (10:03)
--- NOTE | 2017-10-29 10:22 | Internal Med Progress Note ---
<Jess Shrestha - Last Filed: 10/29/17 17:05> Date of Encounter: 10/29/17 Time of Encounter: 09:45 - Assessment and plan (1) MRSA bacteremia Current Visit: Yes Status: Acute Assessment and plan: - Blood cultures from 10/24/17 (2/2) grew MRSA sensitive to vancomycin, daptomycin, doxycycline, gentamicin, linezolid, tetracycline and Bactrim. - Repeat blood cultures on 10/25/17 have no growth to date. - Will obtain echocardiogram to evaluate possible endocarditis. - Continue IV vancomycin (since 10/24/17). (2) Spontaneous pneumothorax Current Visit: Yes Status: Acute Assessment and plan: - Status post right thoracotomy with apical bleb resection on 10/19/17. - Cardiothoracic surgery takes off suction of the chest tube. Appreciate cardiothoracic surgery follow-up. (3) DVT (deep venous thrombosis) Current Visit: Yes Status: Acute Assessment and plan: - Bilateral lower extremity venous duplex on 10/24/17 found acute DVTs in bilateral gastroc veins and L ant tibial vein. - Currently on SQ Lovenox. Okay to switch to Eliquis per cardiothoracic surgery. Qualifiers: DVT location: lower extremity Affected thrombotic vein of extremity: other lower extremity vein Chronicity: acute Laterality: bilateral Qualified Code(s): I82.493 - Acute embolism and thrombosis of other specified deep vein of lower extremity, bilateral (4) Acute and chronic respiratory failure with hypoxia Current Visit: Yes Status: Chronic Assessment and plan: - Stable as patient maintains acceptable oxygenation on 3L NC (5) Atrial fibrillation Current Visit: Yes Status: Chronic Assessment and plan: - Rate-controlled. - Currently on SQ Lovenox. Okay to switch to Eliquis per cardiothoracic surgery. Qualifiers: Atrial fibrillation type: chronic Qualified Code(s): I48.2 - Chronic atrial fibrillation (6) Chronic systolic CHF (congestive heart failure) Current Visit: No Status: Chronic Assessment and plan: - Continue Lasix. - Strict I/O and daily weight. (7) COPD (chronic obstructive pulmonary disease) Current Visit: Yes Status: Chronic Assessment and plan: - Continue Symbicort, bronchodilators and supplemental oxygen. Qualifiers: COPD type: unspecified COPD Qualified Code(s): J44.9 - Chronic obstructive pulmonary disease, unspecified (8) Hypertension Current Visit: No Status: Chronic Assessment and plan: - BP within normal range. - Continue current antihypertensive regimen. Qualifiers: Hypertension type: essential hypertension Qualified Code(s): I10 - Essential (primary) hypertension - Subjective Interval history: Patient was seen and examined this morning. Patient reports breathing well but still has some pain around chest tube site which is aggravated by cough. Patient denies fever or chills. - Constitutional Vitals: Temp Pulse Resp BP Pulse Ox 98.2 F 63 16 143/88 95 10/29/17 07:24 10/29/17 08:15 10/29/17 10:03 10/29/17 07:24 10/29/17 10:03 General appearance: Present: cooperative, A&O X 3, pleasant, answers questions appropriately - Head Head exam: Present: atraumatic, normocephalic - Eye Eye exam: Present: EOMI, conjuntiva pink, sclera anicteric - Neck Neck exam general surgery: Present: supple, trachea midline. Absent: lymphadenopathy - Respiratory Respiratory exam: Present: decreased breath sounds. Absent: accessory muscle use, rales, rhonchi, wheezes - Cardiovascular Cardiovascular exam: Present: RRR - GI/Abdominal GI/Abdominal exam: Present: soft, no peritoneal signs. Absent: tenderness - Extremities Exam Extremities exam: Present: warm, radial pulses palpable and symmetrical. Absent : cyanotic, pedal edema - Neurological Exam Neurological exam: Present: alert, oriented X3. Absent: facial droop, speech deficit - Skin Skin exam: Present: dry, warm Internal Medicine: Result - Labs CBC & Chem 7: 10/28/17 07:04 10/28/17 07:04 - ABG Interpretation ABG results: ABG ABG pH 7.45 pH Units (7.32-7.45) 10/24/17 09:00 ABG pCO2 42 mmHg (35-45) 10/24/17 09:00 ABG pO2 62 mmHg (85-104) L 10/24/17 09:00 ABG O2 Saturation 92 % (95-98) L 10/24/17 09:00 PT/INR, D-dimer PT 13.0 Seconds (9.4-12.1) H 10/24/17 06:10 - Impressions Impressions Chest X-Ray 10/29/17 06:00 IMPRESSION: 1. Stable lines and tubes. 2. Slight interval worsening of a right apical pneumothorax. Otherwise, stable cardiopulmonary status. D/ / 10/29/2017 07:39:50 Dulce Carrizales MD / earnold Interpreting Provider: Dulce Carrizales MD - VTE Documentation of Mechanical Device: Intermittent pneumatic compression device Consult Discharge Plan - Plan Referrals: Kait Puri CNP [Advanced Practice Nurse] - 11/08/17 2:00 pm Mansoor Cobos MD [Partnered Physician] - 11/29/17 1:00 pm Gabo Li MD [Partnered Physician] - 11/09/17 10:45 am (THIS APPOINTMENT IS IN [place]. [facility]IND [facility] IN THE [employer] NUM[address]) <RafaEfrain A - Last Filed: 10/29/17 18:09> Date of Encounter: 10/29/17 - Assessment and plan (1) MRSA (methicillin resistant Staphylococcus aureus) infection Current Visit: Yes Status: Acute (2) Bacteremia Current Visit: Yes Status: Acute (3) Acute and chronic respiratory failure with hypoxia Current Visit: Yes Status: Chronic (4) DVT (deep venous thrombosis) Current Visit: Yes Status: Acute Qualifiers: DVT location: lower extremity Affected thrombotic vein of extremity: other lower extremity vein Chronicity: acute Laterality: bilateral Qualified Code(s): I82.493 - Acute embolism and thrombosis of other specified deep vein of lower extremity, bilateral (5) Spontaneous pneumothorax Current Visit: Yes Status: Acute (6) COPD (chronic obstructive pulmonary disease) Current Visit: Yes Status: Chronic Qualifiers: COPD type: emphysema Emphysema type: centrilobular Qualified Code(s): J43.2 - Centrilobular emphysema (7) Atrial fibrillation Current Visit: Yes Status: Chronic Qualifiers: Atrial fibrillation type: chronic Qualified Code(s): I48.2 - Chronic atrial fibrillation (8) Chronic systolic CHF (congestive heart failure) Current Visit: No Status: Chronic (9) Hypertension Current Visit: No Status: Chronic Qualifiers: Hypertension type: essential hypertension Qualified Code(s): I10 - Essential (primary) hypertension - Constitutional Vitals: Temp Pulse Resp BP Pulse Ox 98.0 F 67 16 155/87 94 10/29/17 15:44 10/29/17 15:44 10/29/17 16:08 10/29/17 15:44 10/29/17 16:08 Internal Medicine: Result - Labs CBC & Chem 7: 10/28/17 07:04 10/28/17 07:04 - ABG Interpretation ABG results: ABG ABG pH 7.45 pH Units (7.32-7.45) 10/24/17 09:00 ABG pCO2 42 mmHg (35-45) 10/24/17 09:00 ABG pO2 62 mmHg (85-104) L 10/24/17 09:00 ABG O2 Saturation 92 % (95-98) L 10/24/17 09:00 PT/INR, D-dimer PT 13.0 Seconds (9.4-12.1) H 10/24/17 06:10 - Impressions Impressions Chest X-Ray 10/29/17 06:00 IMPRESSION: 1. Stable lines and tubes. 2. Slight interval worsening of a right apical pneumothorax. Otherwise, stable cardiopulmonary status. D/ / 10/29/2017 07:39:50 Dulce Carrizales MD / [facility] Interpreting Provider: Dulce Carrizales MD - Attending Attestation I examined this patient and my medical decision-making was reviewed with the Resident Physician on 10/29/17. I agree with the documented findings, disposition and treatment plan as described except to the extent set forth below. Mr Johnson is currently admitted for PTX with chest tubes complicated by MRSA bacteremia and DVTs. He remains moderate to high risk due to potential for worsening clinical status. Mr Johnson feels OK at this time. No fever or chills. Having issues with pain control. Exam Alert. Comfortable Mucus membranes dry Heart reg No edema I/P 1. MRSA bacteremia - check echo. Repeat cx negative. If echo neg needs 2 weeks of Vanc IV 2. DVTs bilateral LE - change to Eliquis Possible d/c later this week. Further diagnoses and plan as above.
--- NOTE | 2017-10-29 14:07 | Anesthesia Progress Note ---
Date of Encounter: 10/29/17 Time of Encounter: 14:04 Anesthesia Note - Note Note: 10/29/17 14:04 I noticed there was no documentation that the epidural had been checked or removed. I came to see patient and he tells me that the epidural had been removed on Sunday-. No notation was made. Site appeared non-erythematous and was not tender to palpation. I am not able to determine if tip was intact. Dr. Croft was salon coordinator Sunday and am not certain if she pulled the epidural. We will watch patient. 10/29/17 14:07
--- NOTE | 2017-10-29 14:56 | Cardiothoracic Progress Note ---
Date of Encounter: 10/29/17 Time of Encounter: 14:54 - Assessment and plan (1) Acute and chronic respiratory failure with hypoxia Current Visit: Yes Status: Chronic The chest tubes were taken off suction. I will check a chest x-ray tomorrow morning. It is okay to switch him from IV heparin to by mouth anticoagulants from my standpoint. - Subjective Interval history: The patient continues to feel better. He does complain of moderate postoperative pain. Vital Signs, Last 4 Hours Temp Pulse Resp BP Pulse Ox 10/29/17 11:05 61 10/29/17 10:59 98.2 F 57 18 123/75 93 Oxgyen Flow Rate Oxygen Flow Rate (LPM) 3 Clinical Data, last 8 Hours Output, Chest Tube Drainage 80 Amount [Right Lower Lateral Chest #2] Output, Chest Tube Drainage 26 Amount [Right Lower Lateral Chest #2] Output, Chest Tube Drainage 0 Amount [Right Lateral Chest #1 ] Output, Chest Tube Drainage 46 Amount [Right Lateral Chest #1 ] Output, Urine Amount 200 Weight 10/27/17 10/28/17 10/29/17 23:59 23:59 23:59 Weight 80.1 kg 80.9 kg Lungs are clear to percussion and auscultation. Heart is in a regular rate and rhythm. All incisions are healing well without signs of infection. His chest tube does have a moderate air leak. - Labs 10/28/17 07:04 10/28/17 07:04 - VTE Documentation of Mechanical Device: Intermittent pneumatic compression device Consult Discharge Plan - Plan Referrals: Kait Puri CNP [Advanced Practice Nurse] - 11/08/17 2:00 pm Mansoor Cobos MD [Partnered Physician] - 11/29/17 1:00 pm Gabo Li MD [Partnered Physician] - 11/09/17 10:45 am (THIS APPOINTMENT IS IN [place]. BEHIND THE [facility] IN THE [employer] NUMBER [address])
[2017-10-29] MEDS: *HR* Morphine Sulfate SR (12 HR) 30 MG TABLET.ER PO SCH (17:22)
[2017-10-29] MEDS: Ketorolac 15 MG/ML VIAL IVP SCH ×2 (17:22→23:42)
[2017-10-29] MEDS: APIXABAN 5 MG TABLET PO SCH (21:23)
[2017-10-30] MEDS: *HR* HYDROmorphone (PF) 1 MG/ML SYRINGE IVP PRN (00:49)
[2017-10-30] MEDS: Levalbuterol Neb 1.25 MG/3 ML IH SCH ×4 (03:49→22:20)
[2017-10-30] MEDS: Acetylcysteine 10% 2 ML INHSOL IH SCH ×2 (03:51→10:51)
[2017-10-30] MEDS: *HR* Morphine Sulfate SR (12 HR) 30 MG TABLET.ER PO SCH ×2 (05:34→18:13)
[2017-10-30] MEDS: Ketorolac 15 MG/ML VIAL IVP SCH ×3 (05:34→20:11)
[2017-10-30 06:24] LABS: BUN/Creatinine Ratio 32 (6-26); Blood Urea Nitrogen 23 mg/dL (8-26); Calcium 8.3 mg/dL (8.6-10.8); Carbon Dioxide 30 mEq/L (19-29); Chloride 104 mEq/L (98-109); Glucose 99 mg/dL (70-99); Magnesium 1.7 mg/dL (1.6-2.6); Osmolality,Calculated 292 (280-300); Potassium 4.4 mEq/L (3.5-4.5); Sodium 139 mEq/L (136-145); eGFR For African Americans > 60 (> 60); eGFR For Non-African Americans > 60 (> 60)
[2017-10-30 06:43] LABS: Basophils # 0.1 K/mcL (0.0-0.2); Basophils % 0.2 %; Eosinophils # 0.5 K/mcL (0.0-0.6); Eosinophils % 2.6 %; Hematocrit 26.6 % (37.5-50.1); Hemoglobin 8.2 g/dL (12.9-16.9); Immature Granulocytes % 4.4 % (0-4); Lymphocytes # 2.2 K/mcL (0.6-4.6); Lymphocytes % 10.5 %; Mean Corpuscular HGB Conc 30.8 g/dL (31.6-35.5); Mean Corpuscular Hemoglobin 26.9 pg (28.0-33.3); Mean Corpuscular Volume 87.2 fL (83.0-100.0); Mean Platelet Volume 10.6 fL (9.4-12.4); Monocytes # 1.5 K/mcL (0.0-1.3); Monocytes % 7.1 %; Neutrophils # 15.7 K/mcL (1.6-8.9); Nucleated Red Blood Cells 0.1 /100 WBC (0); Platelet Count 384 K/mcL (140-400); Red Blood Count 3.05 M/mcL (4.19-5.50); Red Cell Distribution Width 15.5 % (11.5-14.5); Segmented Neutrophils % 75.2 %
--- NOTE | 2017-10-30 07:43 | Cardiothoracic Progress Note ---
Date of Encounter: 10/30/17 Time of Encounter: 07:42 - Assessment and plan (1) Acute and chronic respiratory failure with hypoxia Current Visit: Yes Status: Chronic I will check a chest x-ray tomorrow morning. If this looks good, I will remove the posterior chest tube and place a Heimlich valve on the anterior chest tube. - Subjective Interval history: The patient complains of continued postoperative pain. Vital Signs, Last 4 Hours Temp Pulse Resp BP Pulse Ox 10/30/17 06:15 58 18 92 10/30/17 05:15 98.1 F 66 18 154/85 92 10/30/17 03:49 16 94 Oxgyen Flow Rate Oxygen Flow Rate (LPM) 3 Clinical Data, last 8 Hours Output, Chest Tube Drainage 0 Amount [Right Lower Lateral Chest #2] Output, Chest Tube Drainage 35 Amount [Right Lateral Chest #1 ] Weight 10/28/17 10/29/17 10/30/17 23:59 23:59 23:59 Weight 80.9 kg 85.3 kg Lungs are clear to percussion and auscultation. Heart is in a regular rate and rhythm. His incision is healing well without signs of infection. Chest tube drainage is minimal. The anterior chest tube has a small air leak. Chest x-ray reveals a small right apical pneumothorax. - Labs 10/30/17 06:05 10/30/17 06:05 Lab Results, Last 24 hours 10/30/17 10/30/17 06:05 06:05 WBC 20.9 H Hgb 8.2 L Hct 26.6 L Plt Count 384 Sodium 139 Potassium 4.4 D Chloride 104 Carbon Dioxide 30 H BUN 23 Creatinine 0.71 L Glucose 99 Calcium 8.3 L Magnesium 1.7 - VTE Documentation of Mechanical Device: Intermittent pneumatic compression device Consult Discharge Plan - Plan Referrals: Kait Puri CNP [Advanced Practice Nurse] - 11/08/17 2:00 pm Mansoor Cobos MD [Partnered Physician] - 11/29/17 1:00 pm Gabo Li MD [Partnered Physician] - 11/09/17 10:45 am (THIS APPOINTMENT IS IN [place]. BEHIND THE [facility] IN THE 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
[2017-10-30] MEDS: Insulin LISPRO 300 UNITS/3 ML VIAL SQ SCH ×4 (08:00→21:20)
[2017-10-30] MEDS: Lactulose Oral Soln 20 GM/30 ML UDC PO SCH (08:05)
[2017-10-30] MEDS: *HR* HYDROcodone/Acet 5/325 mg TABLET PO PRN (08:06)
[2017-10-30] MEDS: Sennosides/Docusate Sodium TABLET PO SCH ×2 (08:06→20:28)
[2017-10-30] MEDS: Aspirin Enteric Coated 81 MG Tablet PO SCH (08:06)
[2017-10-30] MEDS: predniSONE 20 MG TABLET PO SCH (08:06)
[2017-10-30] MEDS: *HR* Amiodarone 200 MG TABLET PO SCH (08:06)
[2017-10-30] MEDS: APIXABAN 5 MG TABLET PO SCH ×2 (08:06→20:27)
[2017-10-30] MEDS: Chlorhexidine Rinse 15 ML MOUTHWASH MM SCH ×2 (08:06→20:27)
--- NOTE | 2017-10-30 09:49 | Internal Med Progress Note ---
<Jess Shrestha - Last Filed: 10/30/17 12:46> Date of Encounter: 10/30/17 Time of Encounter: 09:15 - Assessment and plan (1) MRSA bacteremia Current Visit: Yes Status: Acute Assessment and plan: - Blood cultures from 10/24/17 (2/2) grew MRSA sensitive to vancomycin, daptomycin, doxycycline, gentamicin, linezolid, tetracycline and Bactrim. - Repeat blood cultures on 10/25/17 have no growth to date. - TTE today found LVEF 60% and no visible vegetation. - Will obtain PRAVEENA for further investigation. NPO after midnight. - Continue IV vancomycin (since 10/24/17). (2) Spontaneous pneumothorax Current Visit: Yes Status: Acute Assessment and plan: - Status post right thoracotomy with apical bleb resection on 10/19/17. - No significant change on CXR this morning. Per cardiology, plan to remove the posterior chest tube and place a Heimlich valve on the anterior chest tube if CXR tomorrow looks good. - Management per cardiothoracic surgery. (3) DVT (deep venous thrombosis) Current Visit: Yes Status: Acute Assessment and plan: - Bilateral lower extremity venous duplex on 10/24/17 found acute DVTs in bilateral gastroc veins and L ant tibial vein. - Okay to be on Eliquis per cardiothoracic surgery. - Hgb dropped to 8.2 today (was 9.2 yesterday). Will recheck H&H this afternoon. Consider holding anticoagulation if it continues to drop and possible pRBC transfusion if Hgb < 7.0. Qualifiers: DVT location: lower extremity Affected thrombotic vein of extremity: other lower extremity vein Chronicity: acute Laterality: bilateral Qualified Code(s): I82.493 - Acute embolism and thrombosis of other specified deep vein of lower extremity, bilateral (4) Acute and chronic respiratory failure with hypoxia Current Visit: Yes Status: Chronic Assessment and plan: - Stable as patient maintains acceptable oxygenation on 3L NC (5) Atrial fibrillation Current Visit: Yes Status: Chronic Assessment and plan: - Rate-controlled. - On Eliquis for anticoagulation. Qualifiers: Atrial fibrillation type: chronic Qualified Code(s): I48.2 - Chronic atrial fibrillation (6) Chronic systolic CHF (congestive heart failure) Current Visit: No Status: Chronic Assessment and plan: - Continue Lasix. - Strict I/O and daily weight. - Net -9636 mL so far. (7) COPD (chronic obstructive pulmonary disease) Current Visit: Yes Status: Chronic Assessment and plan: - Continue Symbicort, bronchodilators and supplemental oxygen. Qualifiers: COPD type: unspecified COPD Qualified Code(s): J44.9 - Chronic obstructive pulmonary disease, unspecified (8) Hypertension Current Visit: No Status: Chronic Assessment and plan: - BP within normal range. - Continue current antihypertensive regimen. Qualifiers: Hypertension type: essential hypertension Qualified Code(s): I10 - Essential (primary) hypertension - Subjective Interval history: Patient was seen and examined this morning. Patient still has some pain around chest tube site which is aggravated by cough and deep breath but patient did notice better pain control with MS Contin as he can sleep better without much pain. Patient denies fever, chills and shortness of breath. Patient denies hemoptysis, hematemesis, hematochezia, melena, hematuria or other active bleeding. - Constitutional Vitals: Temp Pulse Resp BP Pulse Ox 98.2 F 60 20 153/96 95 10/30/17 08:17 10/30/17 08:17 10/30/17 08:17 10/30/17 08:17 10/30/17 08:17 General appearance: Present: cooperative, A&O X 3, pleasant, answers questions appropriately - Head Head exam: Present: atraumatic, normocephalic - Eye Eye exam: Present: EOMI, conjuntiva pink, sclera anicteric - ENT ENT exam: Present: mucous membranes dry - Neck Neck exam general surgery: Present: supple, trachea midline. Absent: lymphadenopathy - Respiratory Respiratory exam: Present: decreased breath sounds. Absent: accessory muscle use, wheezes - Cardiovascular Cardiovascular exam: Present: RRR, +S1, +S2 - GI/Abdominal GI/Abdominal exam: Present: hypoactive bowel sounds, soft, no peritoneal signs. Absent: tenderness - Extremities Exam Extremities exam: Present: warm, radial pulses palpable and symmetrical. Absent : cyanotic, pedal edema - Neurological Exam Neurological exam: Present: alert, oriented X3, no focal deficits. Absent: facial droop, speech deficit - Skin Skin exam: Present: dry, warm Internal Medicine: Result - Labs CBC & Chem 7: 10/30/17 06:05 10/30/17 06:05 Labs: Short CBC 10/30/17 Range/Units 06:05 WBC 20.9 H (4.3-11.1) K/mcL Hgb 8.2 L (12.9-16.9) g/dL Hct 26.6 L (37.5-50.1) % Plt Count 384 (140-400) K/mcL Neutrophils # 15.7 H (1.6-8.9) K/mcL BMP 10/30/17 06:05 Sodium 139 Potassium 4.4 D Chloride 104 Carbon Dioxide 30 H BUN 23 Creatinine 0.71 L Glucose 99 Calcium 8.3 L - ABG Interpretation ABG results: ABG ABG pH 7.45 pH Units (7.32-7.45) 10/24/17 09:00 ABG pCO2 42 mmHg (35-45) 10/24/17 09:00 ABG pO2 62 mmHg (85-104) L 10/24/17 09:00 ABG O2 Saturation 92 % (95-98) L 10/24/17 09:00 PT/INR, D-dimer PT 13.0 Seconds (9.4-12.1) H 10/24/17 06:10 - Impressions Impressions Chest X-Ray 10/29/17 06:00 IMPRESSION: 1. Stable lines and tubes. 2. Slight interval worsening of a right apical pneumothorax. Otherwise, stable cardiopulmonary status. D/ / 10/29/2017 07:39:50 Dulce Carrizales MD / [facility] Interpreting Provider: Dulce Carrizales MD Chest X-Ray 10/30/17 00:01 IMPRESSION: No significant change in the appearance of the chest. D/ / Austyn Valentin MD / Austyn Valentin MD Interpreting Provider: Austyn Valentin MD - VTE Documentation of Mechanical Device: Intermittent pneumatic compression device Consult Discharge Plan - Plan Referrals: Kait Puri EKG TECHNICIAN [Advanced Practice Nurse] - 11/08/17 2:00 pm Mansoor Cobos MD [Partnered Physician] - 11/29/17 1:00 pm Gabo Li MD [Partnered Physician] - 11/09/17 10:45 am (THIS APPOINTMENT IS IN [place]. BEHIND THE [facility] IN THE [email or web address] BUILDING NUMBER 1) <Richi Ansari - Last Filed: 10/30/17 17:39> Date of Encounter: 10/30/17 - Constitutional Vitals: Temp Pulse Resp BP Pulse Ox 98.1 F 66 20 139/74 97 10/30/17 16:31 10/30/17 16:31 10/30/17 16:31 10/30/17 16:31 10/30/17 16:31 Internal Medicine: Result - Labs CBC & Chem 7: 10/30/17 14:02 10/30/17 06:05 Labs: Short CBC 10/30/17 10/30/17 Range/Units 06:05 14:02 WBC 20.9 H (4.3-11.1) K/mcL Hgb 8.2 L 9.5 L (12.9-16.9) g/dL Hct 26.6 L 29.9 L (37.5-50.1) % Plt Count 384 (140-400) K/mcL Neutrophils # 15.7 H (1.6-8.9) K/mcL BMP 10/30/17 06:05 Sodium 139 Potassium 4.4 D Chloride 104 Carbon Dioxide 30 H BUN 23 Creatinine 0.71 L Glucose 99 Calcium 8.3 L - ABG Interpretation ABG results: ABG ABG pH 7.45 pH Units (7.32-7.45) 10/24/17 09:00 ABG pCO2 42 mmHg (35-45) 10/24/17 09:00 ABG pO2 62 mmHg (85-104) L 10/24/17 09:00 ABG O2 Saturation 92 % (95-98) L 10/24/17 09:00 PT/INR, D-dimer PT 13.0 Seconds (9.4-12.1) H 10/24/17 06:10 - Impressions Impressions Chest X-Ray 10/30/17 00:01 IMPRESSION: No significant change in the appearance of the chest. D/ / Austyn Valentin MD / Austyn Valentin MD Interpreting Provider: Austyn Valentin MD Echocardiogram 10/30/17 14:50 Impressions: LVEF 60%. Normal LV chamber size and function. Mild concentric left ventricular hypertrophy. Atypical septal motion consistent with post-operative status. Normal right ventricular structure and function. Severely dilated left atrium. Mild mitral regurgitation. Mild pulmonary hypertension. Left Ventricular Wall Motion: Rest Echo Findings All wall segments showed normal motion. Findings: Study Quality * Technically adequate exam. ECG Findings * Sinus bradycardia. Left Ventricle * LVEF 60%. * Normal LV chamber size and function. * Mild concentric left ventricular hypertrophy. * Atypical septal motion consistent with post-operative status. Right Ventricle * Normal right ventricular structure and function. Left Atrium * Severely dilated left atrium. Right Atrium * Moderately dilated right atrium. Aortic Valve * Trileaflet aortic valve with normal function. * No aortic regurgitation. * No aortic stenosis. Mitral Valve * Mildly thickened mitral valve leaflets. * Mild mitral regurgitation. * No mitral stenosis. Tricuspid Valve * Normal tricuspid valve structure and function. * Trace tricuspid regurgitation. * Mild pulmonary hypertension. Pulmonic Valve * Pulmonic valve not well visualized. Aorta * Normally sized aortic root. Pericardium * The pericardium appears normal. IVC * Normal IVC dimensions and inspiratory collapse. Pulmonary Artery * Normal visualized portions of the main pulmonary artery. - Attending Attestation I conducted a face to face diagnostic evaluation of this patient and my medical decision-making was reviewed with the Resident Physician, Dr Jess Shrestha. I agree with the documented findings, disposition and treatment plan as described except to the extent set forth below: She reports severe sharp right-sided chest pain, worse with cough and movement, better with IV Dilaudid. Plan: We will transition to extended release morphine oral, add oral [place], continue IV Toradol for severe pain and add IV morphine. For breakthrough pain. Stop IV Dilaudid. The patient is at high risk for morbidity mortality and complications due to treatment with IV controlled substances. Richi Ansari MD
[2017-10-30] MEDS: Budesonide/Formoterol 80/4.5 MDI IH SCH ×2 (10:46→22:20)
[2017-10-30] MEDS: Tiotropium 18 MCG inhalation IH SCH (10:47)
[2017-10-30] MEDS ORDERED: *HR* Morphine 2 MG/ML SYRINGE IVP PRN (11:44)
[2017-10-30] MEDS: Vancomycin 1,500 MG in D5% in Water 250 ML IVPB SCH (12:07)
[2017-10-30] MEDS ORDERED: Aminoglycoside Consult 1 EACH MC ONE (13:58)
[2017-10-30 14:22] LABS: Hematocrit 29.9 % (37.5-50.1); Hemoglobin 9.5 g/dL (12.9-16.9)
[2017-10-30] MEDS: *HR* HYDROcodone/Acet 10/325 mg TABLET PO PRN (18:13)
[2017-10-31] MEDS: *HR* HYDROcodone/Acet 10/325 mg TABLET PO PRN ×4 (00:09→23:31)
[2017-10-31] MEDS: Vancomycin 1,500 MG in D5% in Water 250 ML IVPB SCH ×2 (00:09→12:28)
[2017-10-31 01:05] LABS: Basophils # 0.1 K/mcL (0.0-0.2); Basophils % 0.3 %; Eosinophils # 0.5 K/mcL (0.0-0.6); Eosinophils % 2.3 %; Hematocrit 25.7 % (37.5-50.1); Immature Granulocytes % 4.4 % (0-4); Lymphocytes # 2.1 K/mcL (0.6-4.6); Lymphocytes % 9.9 %; Mean Corpuscular HGB Conc 31.1 g/dL (31.6-35.5); Mean Corpuscular Hemoglobin 27.2 pg (28.0-33.3); Mean Corpuscular Volume 87.4 fL (83.0-100.0); Mean Platelet Volume 10.1 fL (9.4-12.4); Monocytes # 1.6 K/mcL (0.0-1.3); Monocytes % 7.4 %; Neutrophils # 16.1 K/mcL (1.6-8.9); Platelet Count 382 K/mcL (140-400); Red Blood Count 2.94 M/mcL (4.19-5.50); Red Cell Distribution Width 15.7 % (11.5-14.5); Segmented Neutrophils % 75.7 %
[2017-10-31 01:23] LABS: BUN/Creatinine Ratio 27 (6-26); Blood Urea Nitrogen 23 mg/dL (8-23); Carbon Dioxide 30 mEq/L (23-29); Chloride 107 mEq/L (98-107); Glucose 150 mg/dL (70-105); Osmolality,Calculated 295 (280-300); Potassium 4.4 mEq/L (3.5-5.1); Sodium 139 mEq/L (136-145); eGFR For African Americans > 60 (> 60); eGFR For Non-African Americans > 60 (> 60)
[2017-10-31] MEDS: Levalbuterol Neb 1.25 MG/3 ML IH SCH ×4 (03:47→22:27)
[2017-10-31] MEDS: Ketorolac 15 MG/ML VIAL IVP SCH ×5 (05:50→23:28)
[2017-10-31] MEDS: *HR* Morphine Sulfate SR (12 HR) 30 MG TABLET.ER PO SCH (05:52)
[2017-10-31] MEDS: Insulin LISPRO 300 UNITS/3 ML VIAL SQ SCH ×4 (07:13→21:25)
[2017-10-31] MEDS ORDERED: 0.9 % Sodium Chloride 500 ML IVC ONE (07:54)
[2017-10-31] MEDS ORDERED: Tetracaine/Benzocaine/Butamben 200MG/SPRAY (100SPY/BOT) MM ONE (07:54)
[2017-10-31] MEDS ORDERED: Lidocaine Viscous Oral Soln 15 ML SOLUTION MM PRN (07:54)
[2017-10-31] MEDS: *HR* Midazolam HCl 5 MG/5 ML VIAL IVP PRN ×2 (09:05→09:10)
[2017-10-31] MEDS: *HR* FentaNYL (PF) 100 MCG/2 ML VIAL IVP PRN ×2 (09:05→09:10)
--- NOTE | 2017-10-31 10:32 | Internal Med Progress Note ---
<Jess Shrestha - Last Filed: 10/31/17 11:03> Date of Encounter: 10/31/17 Time of Encounter: 10:15 - Assessment and plan (1) MRSA bacteremia Current Visit: Yes Status: Acute Assessment and plan: - Blood cultures from 10/24/17 (2/2) grew MRSA sensitive to vancomycin, daptomycin, doxycycline, gentamicin, linezolid, tetracycline and Bactrim. - Repeat blood cultures on 10/25/17 have no growth to date. - TTE on found LVEF 60% and no visible vegetation. - PRAVEENA today found LVEF 60% and no evidenc eof vegetation. - Continue IV vancomycin (since 10/24/17). Patient will need total 4-week course of IV vancomycin (anticipated to finish on 11/14/17). Plan to have PICC placed today so patient can continue IV antibiotic therapy after discharge with home health. (2) Spontaneous pneumothorax Current Visit: Yes Status: Acute Assessment and plan: - Status post right thoracotomy with apical bleb resection on 10/19/17. - Continue narcotic as needed for pain control. - Cardiothoracic surgery removed the posterior chest tube and placed a Heimlich valve on the anterior chest tube today. Will recheck CXR and possible discharge home tomorrow. - Management per cardiothoracic surgery. (3) DVT (deep venous thrombosis) Current Visit: Yes Status: Acute Assessment and plan: - Bilateral lower extremity venous duplex on 10/24/17 found acute DVTs in bilateral gastroc veins and L ant tibial vein. - Okay to be on Eliquis per cardiothoracic surgery. - Hgb dropped to 8.0 today (was 9.5 yesterday). Will recheck H&H this afternoon. Consider holding anticoagulation if it continues to drop and possible pRBC transfusion if Hgb < 7.0. Qualifiers: DVT location: lower extremity Affected thrombotic vein of extremity: other lower extremity vein Chronicity: acute Laterality: bilateral Qualified Code(s): I82.493 - Acute embolism and thrombosis of other specified deep vein of lower extremity, bilateral (4) Acute and chronic respiratory failure with hypoxia Current Visit: Yes Status: Chronic Assessment and plan: - Stable as patient maintains acceptable oxygenation on 3L NC (5) Atrial fibrillation Current Visit: Yes Status: Chronic Assessment and plan: - Rate-controlled. - On Eliquis for anticoagulation. Qualifiers: Atrial fibrillation type: chronic Qualified Code(s): I48.2 - Chronic atrial fibrillation (6) Chronic systolic CHF (congestive heart failure) Current Visit: No Status: Chronic Assessment and plan: - Continue Lasix. - Strict I/O and daily weight. - Net -9505 mL so far. (7) COPD (chronic obstructive pulmonary disease) Current Visit: Yes Status: Chronic Assessment and plan: - Continue Symbicort, bronchodilators and supplemental oxygen. Qualifiers: COPD type: unspecified COPD Qualified Code(s): J44.9 - Chronic obstructive pulmonary disease, unspecified (8) Hypertension Current Visit: No Status: Chronic Assessment and plan: - BP within normal range most of time. - Continue current antihypertensive regimen. Qualifiers: Hypertension type: essential hypertension Qualified Code(s): I10 - Essential (primary) hypertension - Subjective Interval history: Patient was seen and examined this morning after coming back from PRAVEENA, which is negative for vegetation. Patient reports breathing okay but still has some pain from chest tubes. Patient states that MS Contin made him drowsy and he prefers [place] for the better control. Patient denies hemoptysis, hematemesis, hematochezia, melena, hematuria or other active bleeding. - Constitutional Vitals: Temp Pulse Resp BP Pulse Ox 97.8 F 53 18 172/92 95 10/31/17 08:24 10/31/17 08:24 10/31/17 08:24 10/31/17 08:24 10/31/17 08:24 General appearance: Present: cooperative, A&O X 3, pleasant, answers questions appropriately - Head Head exam: Present: atraumatic, normocephalic - Eye Eye exam: Present: EOMI, conjuntiva pink, sclera anicteric - Neck Neck exam general surgery: Present: supple, trachea midline. Absent: lymphadenopathy - Respiratory Respiratory exam: Present: CTAB. Absent: accessory muscle use, rales, rhonchi, wheezes - Cardiovascular Cardiovascular exam: Present: RRR, +S1, +S2. Absent: diastolic murmur, gallop, rubs, systolic murmur Additional comments: Chest tubes in place and the sites look intact, clean and dry. - GI/Abdominal GI/Abdominal exam: Present: normal bowel sounds, soft, no peritoneal signs. Absent: distended, tenderness - Extremities Exam Extremities exam: Present: warm. Absent: cyanotic, pedal edema - Neurological Exam Neurological exam: Present: oriented X3, no focal deficits. Absent: facial droop, speech deficit - Skin Skin exam: Present: dry, warm Internal Medicine: Result - Labs CBC & Chem 7: 10/31/17 00:54 10/31/17 00:54 Labs: Short CBC 10/30/17 10/31/17 Range/Units 14:02 00:54 WBC 21.2 H (4.3-11.1) K/mcL Hgb 9.5 L 8.0 L D (12.9-16.9) g/dL Hct 29.9 L 25.7 L (37.5-50.1) % Plt Count 382 (140-400) K/mcL Neutrophils # 16.1 H (1.6-8.9) K/mcL BMP 10/31/17 00:54 Sodium 139 Potassium 4.4 Chloride 107 Carbon Dioxide 30 H BUN 23 Creatinine 0.86 Glucose 150 H Calcium 8.0 L - ABG Interpretation ABG results: ABG ABG pH 7.45 pH Units (7.32-7.45) 10/24/17 09:00 ABG pCO2 42 mmHg (35-45) 10/24/17 09:00 ABG pO2 62 mmHg (85-104) L 10/24/17 09:00 ABG O2 Saturation 92 % (95-98) L 10/24/17 09:00 PT/INR, D-dimer PT 13.0 Seconds (9.4-12.1) H 10/24/17 06:10 - Impressions Impressions Chest X-Ray 10/31/17 00:01 IMPRESSION: Right chest tubes in unchanged position. There is a new, small right basilar pneumothorax. Worsening left basilar atelectasis. The findings were sent to the Radiology Results Communication Center at 7:24 am on 10/31/2017to be communicated to a licensed caregiver. D/ / 10/31/2017 08:21:03 Radha Levy MD / [facility]ario Interpreting Provider: Radha Levy MD - VTE Documentation of Mechanical Device: Intermittent pneumatic compression device Consult Discharge Plan - Plan Referrals: Kait Puri SHREDDING MACHINE TENDER [Advanced Practice Nurse] - 11/08/17 2:00 pm Mansoor Cobos MD [Partnered Physician] - 11/29/17 1:00 pm Gabo Li MD [Partnered Physician] - 11/09/17 10:45 am (THIS APPOINTMENT IS IN [place]. BEHIND THE [facility] IN THE [employer] BUILDING NUMBER 1) <Richi Ansari - Last Filed: 10/31/17 18:05> Date of Encounter: 10/31/17 - Constitutional Vitals: Temp Pulse Resp BP Pulse Ox 98 F 62 18 142/86 94 10/31/17 16:49 10/31/17 15:25 10/31/17 15:25 10/31/17 16:49 10/31/17 15:25 Internal Medicine: Result - Labs CBC & Chem 7: 10/31/17 13:25 10/31/17 00:54 Labs: Short CBC 10/31/17 10/31/17 Range/Units 00:54 13:25 WBC 21.2 H (4.3-11.1) K/mcL Hgb 8.0 L D 8.9 L (12.9-16.9) g/dL Hct 25.7 L 28.0 L (37.5-50.1) % Plt Count 382 (140-400) K/mcL Neutrophils # 16.1 H (1.6-8.9) K/mcL BMP 10/31/17 00:54 Sodium 139 Potassium 4.4 Chloride 107 Carbon Dioxide 30 H BUN 23 Creatinine 0.86 Glucose 150 H Calcium 8.0 L - ABG Interpretation ABG results: ABG ABG pH 7.45 pH Units (7.32-7.45) 10/24/17 09:00 ABG pCO2 42 mmHg (35-45) 10/24/17 09:00 ABG pO2 62 mmHg (85-104) L 10/24/17 09:00 ABG O2 Saturation 92 % (95-98) L 10/24/17 09:00 PT/INR, D-dimer PT 13.0 Seconds (9.4-12.1) H 10/24/17 06:10 - Impressions Impressions Chest X-Ray 10/31/17 00:01 IMPRESSION: Right chest tubes in unchanged position. There is a new, small right basilar pneumothorax. Worsening left basilar atelectasis. The findings were sent to the Radiology Results Communication Center at 7:24 am on 10/31/2017to be communicated to a licensed caregiver. D/ / 10/31/2017 08:21:03 Radha Levy MD / [facility] Interpreting Provider: Radha Levy MD Chest X-Ray 10/31/17 11:00 IMPRESSION: Right apical chest tubes remain in place without significant change in right-sided pneumothorax. Right basilar chest tube has been removed. D/ / Rafa Sterling MD / Rafa Sterling MD Interpreting Provider: Rafa Sterling MD - Attending Attestation I conducted a face to face diagnostic evaluation of this patient and my medical decision-making was reviewed with the Resident Physician, Dr Jess Shrestha. I agree with the documented findings, disposition and treatment plan as described except to the extent set forth below: Patient is in no acute distress. Heart is regular. Lung exam reveals right basilar crackles. Plan: Chest tube management per CT surgery. Continue IV vancomycin. He is at high risk for morbidity and complications due to IV vancomycin which requires blood level monitoring for toxicity. Richi Ansari MD
[2017-10-31] MEDS: Budesonide/Formoterol 80/4.5 MDI IH SCH ×2 (10:47→22:27)
[2017-10-31] MEDS: Tiotropium 18 MCG inhalation IH SCH (10:49)
--- NOTE | 2017-10-31 10:58 | Cardiothoracic Progress Note ---
Date of Encounter: 10/31/17 Time of Encounter: 10:56 - Assessment and plan (1) Acute and chronic respiratory failure with hypoxia Current Visit: Yes Status: Chronic I removed the posterior chest tube. A Heimlich valve was placed on the anterior tube. PRAVEENA was reported to be negative. Hopefully, the patient can be discharged in 1-2 days. I will see him back in the office in 2-3 weeks to remove the chest tube. - Subjective Interval history: The patient has no complaints. He does have continued postoperative pain that is improving. Vital Signs, Last 4 Hours Temp Pulse Resp BP Pulse Ox 10/31/17 08:24 97.8 F 53 18 172/92 95 10/31/17 07:31 98.2 F 60 18 153/89 97 Oxgyen Flow Rate Oxygen Flow Rate (LPM) 3 Clinical Data, last 8 Hours Output, Chest Tube Drainage 0 Amount [Right Lower Lateral Chest #2] Output, Chest Tube Drainage 30 Amount [Right Lateral Chest #1 ] Output, Urine Amount 0 Output, Urine Amount 400 Output, Urine Amount 250 Output, Urine Amount 125 Weight 10/29/17 10/30/17 10/31/17 23:59 23:59 23:59 Weight 80.9 kg 85.1 kg 84.822 kg Lungs are clear to percussion and auscultation. Heart is in a normal sinus rhythm. His incision is healing well without signs of infection. Chest x-ray reveals a small right pneumothorax. - Labs 10/31/17 00:54 10/31/17 00:54 Lab Results, Last 24 hours 10/30/17 10/31/17 10/31/17 14:02 00:54 00:54 WBC 21.2 H Hgb 9.5 L 8.0 L D Hct 29.9 L 25.7 L Plt Count 382 Sodium 139 Potassium 4.4 Chloride 107 Carbon Dioxide 30 H BUN 23 Creatinine 0.86 Glucose 150 H Calcium 8.0 L - VTE Documentation of Mechanical Device: Intermittent pneumatic compression device Consult Discharge Plan - Plan Referrals: Kait Puri CNP [Advanced Practice Nurse] - 11/08/17 2:00 pm Mansoor Cobos MD [Partnered Physician] - 11/29/17 1:00 pm Gabo Li MD [Partnered Physician] - 12/29/17 10:45 am (THIS APPOINTMENT IS IN [place]. BEHIND THE [facility] IN THE [facility] [employer] [facility]ING NUMBER [facility])
[2017-10-31] MEDS ORDERED: Lidocaine -MPF 1% 5 ML AMPUL INFILT ONE (11:48)
[2017-10-31] MEDS ORDERED: Lidocaine -MPF 1% 2 ML VIAL INFILT ONE (12:15)
[2017-10-31] MEDS: *HR* Amiodarone 200 MG TABLET PO SCH (13:48)
[2017-10-31] MEDS: Sennosides/Docusate Sodium TABLET PO SCH ×2 (13:48→21:23)
[2017-10-31] MEDS: Aspirin Enteric Coated 81 MG Tablet PO SCH (13:48)
[2017-10-31] MEDS: APIXABAN 5 MG TABLET PO SCH ×2 (13:49→21:23)
[2017-10-31] MEDS: predniSONE 20 MG TABLET PO SCH (13:49)
[2017-10-31] MEDS: Lactulose Oral Soln 20 GM/30 ML UDC PO SCH (13:49)
[2017-10-31 14:00] LABS: Hemoglobin 8.9 g/dL (12.9-16.9)
[2017-11-01] MEDS ORDERED: Vancomycin 1,250 MG in D5% in Water 250 ML IVPB SCH ×2 (01:00→11:00)
[2017-11-01] MEDS: Levalbuterol Neb 1.25 MG/3 ML IH SCH ×2 (03:51→10:58)
[2017-11-01] MEDS: *HR* HYDROcodone/Acet 10/325 mg TABLET PO PRN ×2 (04:02→09:29)
[2017-11-01] MEDS: Ketorolac 15 MG/ML VIAL IVP SCH ×2 (04:03→10:51)
[2017-11-01 04:24] LABS: Basophils % 0.1 %; Eosinophils # 0.5 K/mcL (0.0-0.6); Eosinophils % 2.4 %; Hematocrit 26.9 % (37.5-50.1); Hemoglobin 8.4 g/dL (12.9-16.9); Immature Granulocytes % 2.3 % (0-4); Lymphocytes # 1.6 K/mcL (0.6-4.6); Lymphocytes % 8.7 %; Mean Corpuscular HGB Conc 31.2 g/dL (31.6-35.5); Mean Corpuscular Hemoglobin 27.1 pg (28.0-33.3); Mean Corpuscular Volume 86.8 fL (83.0-100.0); Mean Platelet Volume 10.1 fL (9.4-12.4); Monocytes # 1.3 K/mcL (0.0-1.3); Monocytes % 6.8 %; Nucleated Red Blood Cells 0.1 /100 WBC (0); Platelet Count 441 K/mcL (140-400); Red Cell Distribution Width 15.9 % (11.5-14.5); Segmented Neutrophils % 79.7 %
[2017-11-01 04:43] LABS: BUN/Creatinine Ratio 22 (6-26); Blood Urea Nitrogen 16 mg/dL (8-23); Carbon Dioxide 30 mEq/L (23-29); Chloride 104 mEq/L (98-107); Glucose 127 mg/dL (70-105); Osmolality,Calculated 295 (280-300); Potassium 4.5 mEq/L (3.5-5.1); Sodium 141 mEq/L (136-145); eGFR For African Americans > 60 (> 60); eGFR For Non-African Americans > 60 (> 60)
[2017-11-01] MEDS: Insulin LISPRO 300 UNITS/3 ML VIAL SQ SCH ×2 (07:25→11:02)
[2017-11-01] MEDS: Lactulose Oral Soln 20 GM/30 ML UDC PO SCH (07:32)
[2017-11-01] MEDS: predniSONE 20 MG TABLET PO SCH (07:32)
[2017-11-01] MEDS: Sennosides/Docusate Sodium TABLET PO SCH (07:32)
[2017-11-01] MEDS: Aspirin Enteric Coated 81 MG Tablet PO SCH (07:32)
[2017-11-01] MEDS: APIXABAN 5 MG TABLET PO SCH (07:32)
[2017-11-01] MEDS: *HR* Amiodarone 200 MG TABLET PO SCH (07:32)
--- NOTE | 2017-11-01 09:40 | Cardiothoracic Progress Note ---
Date of Encounter: 11/01/17 Time of Encounter: 09:39 - Assessment and plan (1) Acute and chronic respiratory failure with hypoxia Current Visit: Yes Status: Chronic The patient is ready for discharge from my standpoint. I will see him in the office in 2-3 weeks to remove the Heimlich valve. - Subjective Interval history: The patient has no complaints and is anxious to go home. Vital Signs, Last 4 Hours Temp Pulse Resp BP Pulse Ox 11/01/17 07:39 65 11/01/17 07:11 98.1 F 54 16 159/92 98 Oxgyen Flow Rate Oxygen Flow Rate (LPM) 3 Weight 10/30/17 10/31/17 11/01/17 23:59 23:59 23:59 Weight 85.1 kg 84.822 kg 85 kg Lungs are clear to percussion and auscultation. Heart is in a regular rate and rhythm. The chest tube has minimal drainage with a small air leak. Chest x-ray reveals a possible increase in the basilar pneumothorax, although this may be secondary to technique. - Labs 11/01/17 04:00 11/01/17 04:00 Lab Results, Last 24 hours 10/31/17 11/01/17 11/01/17 13:25 04:00 04:00 WBC 18.8 H Hgb 8.9 L 8.4 L Hct 28.0 L 26.9 L Plt Count 441 H Sodium 141 Potassium 4.5 Chloride 104 Carbon Dioxide 30 H BUN 16 Creatinine 0.72 Glucose 127 H Calcium 8.0 L - VTE Documentation of Mechanical Device: Intermittent pneumatic compression device Consult Discharge Plan - Plan Referrals: Kait Puri CNP [Advanced Practice Nurse] - 11/08/17 2:00 pm Mansoor Cobos MD [Partnered Physician] - 11/29/17 1:00 pm Gabo Li MD [Partnered Physician] - 11/09/17 10:45 am (THIS APPOINTMENT IS IN [place]. BEHIND THE [facility] [place] IN THE [employer] BUILDING NUMBER 1)
--- NOTE | 2017-11-01 09:48 | Discharge Summary ---
<Jess Shrestha - Last Filed: 11/01/17 16:51> Date of Encounter: 11/01/17 Time of Encounter: 08:15 - Discharge Diagnosis (1) MRSA bacteremia Priority: Primary Status: Acute (2) Spontaneous pneumothorax Priority: Primary Status: Acute (3) DVT (deep venous thrombosis) Priority: Secondary Status: Acute Qualifiers: DVT location: lower extremity Affected thrombotic vein of extremity: other lower extremity vein Chronicity: acute Laterality: bilateral Qualified Code(s): I82.493 - Acute embolism and thrombosis of other specified deep vein of lower extremity, bilateral (4) Acute and chronic respiratory failure with hypoxia Priority: Secondary Status: Chronic (5) Atrial fibrillation Priority: Secondary Status: Chronic Qualifiers: Atrial fibrillation type: chronic Qualified Code(s): I48.2 - Chronic atrial fibrillation (6) Chronic systolic CHF (congestive heart failure) Priority: Secondary Status: Chronic (7) COPD (chronic obstructive pulmonary disease) Priority: Secondary Status: Chronic Qualifiers: COPD type: unspecified COPD Qualified Code(s): J44.9 - Chronic obstructive pulmonary disease, unspecified (8) Hypertension Priority: Secondary Status: Chronic Qualifiers: Hypertension type: essential hypertension Qualified Code(s): I10 - Essential (primary) hypertension - Discharge Medications Prescriptions: HYDROcodone/Acet 10/325 mg [Crewe 10-325 mg] 1 tab PO Q4HR 5 Days #30 tablet Apixaban [Eliquis] 10 mg PO BID #20 tablet Lactulose 20 gm PO DAILY PRN #30 udc PRN Reason: Constipation Vancomycin [Vancocin] 1.25 gm IV Q12H 21 Days #14 vial Home Medications: Aspirin [Adult Low Dose Aspirin EC] 81 mg PO DAILY 02/02/16 [History] Atorvastatin Calcium [Lipitor] 80 mg PO DAILY 02/02/16 [History] Nitroglycerin [Nitrostat] 0.4 mg SL AD PRN 07/30/16 [History] Amiodarone [Cordarone] 200 mg PO DAILY 04/22/17 [History] Amlodipine Besylate 10 mg PO DAILY 10/05/17 [History] Budesonide/Formoterol 80/4.5 [Symbicort 80/4.5] 2 puff IH BID 10/05/17 [History ] Calcium Polycarbophil [Fibercon] 625 mg PO BID PRN 10/05/17 [History] Ipratropium/Albuterol Neb [Duoneb] 3 ml IH QID 10/05/17 [History] Levalbuterol HCl [Xopenex] 0.63 mg IH Q8H 10/05/17 [History] Lisinopril [Zestril] 10 mg PO BID 10/05/17 [History] Metoprolol [Lopressor] 12.5 mg PO BID 10/05/17 [History] Tiotropium [Spiriva] 18 mcg IH DAILY 10/05/17 [History] Apixaban [Eliquis] 10 mg PO BID #20 tablet 11/01/17 [Rx] HYDROcodone/Acet 10/325 mg [Crewe 10-325 mg] 1 tab PO Q4HR 5 Days #30 tablet [Rx] Lactulose 20 gm PO DAILY PRN #30 udc 11/01/17 [Rx] Vancomycin [Vancocin] 1.25 gm IV Q12H 21 Days #14 vial 11/01/17 [Rx] Allergies/Adverse Reactions: 3 Allergy/AdvReac Type Severity Reaction Status Date / Time No Known Allergies Allergy Verified 10/05/17 09:26 Procedures/tests Complete & Pending: Procedures Performed prior 72 hours Category Date Time Status EV PRAVEENA transesophageal echo Routine Y 10/31/17 12:47 Completed EV echocardiogram Routine Y 10/30/17 14:50 Completed Date of admission: 10/04/17 21:24 Primary care physician: Eleazar Kee CNP Consults: 10/04/17 22:26 Consult to Pulmonology [CONS] Routine Consulting Provider: [facility]m [facility] Reason for Consult: Pneumothorax, chest tube management Call Completed: No 10/04/17 23:48 Consult for Pharmacy Education [CONS] Routine Reason for Consult: Med rec, Eliquis and Amiodarone dose Call Completed: No 10/06/17 09:53 Consult to Cardiothoracic Surgery [CONS] Routine Consulting Provider: Cardiothoracic Surgery [facility] Reason for Consult: Spontaneous pneumothorax Time Notified: 09:00 Call Completed: Yes 10/16/17 11:03 Consult to Supervisor [employer] [CONS] Routine Reason for SW Consult: discharge planing, need for disability application and services 10/24/17 10:08 Consult to Nurse Navigator [CONS] Routine Comment: 10/30/17 15:13 PICC Consult [Consult to Invasive Line Access Team] [CONS] Routine Reason for Consult: Will likely need IV vancomycin after discharge. 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 Med/Antibiotic 10/31/17 11:48 Consult to Invasive Line Access Team [CONS] Routine Reason for Consult: Picc Line Insertion Line Type: PICC Discharging clinician: Jess Shrestha Anticipated date of discharge: 11/01/17 - Patient Status Disposition: Home Health Service Condition: Good Functional capacity at discharge: independent ambulation Overall status at discharge: patient is progressing back to baseline - Ambulatory Orders Ambulatory Orders: SP PFT body box lung volumes Time Frame: 4 Weeks, Facility: [facility], Location: Cardiopulmonary Svc - Discharge Instructions Instructions: Hydrocodone/Acetaminophen (By mouth), Lactulose (By mouth), Vancomycin (Injection) Follow Up With: Kait Puri CNP [Advanced Practice Nurse] - 11/08/17 2:00 pm Mansoor Cobos MD [Partnered Physician] - 11/29/17 1:00 pm Gabo Li MD [Partnered Physician] - 11/09/17 10:45 am (THIS APPOINTMENT IS IN [place] [employer] [facility]) Additional Instructions: Please have 3 more weeks of IV vancomycin therapy to finish total 4-week course. The [facility] will monitor the serum vancomcyin trough level and renal function twice a week and adjust dose accordingly. Please follow up with pulmonlogist Dr. Angeles and your primary care provider within a week. Please follow up with cardiothoracic surgeon Dr. Cobos within 2-3 weeks. You can change the 4x4 gauze at distal end of chest tube/valve with new gauze as needed. Be cautious about the chest tube. If the chest tube is yanked out for whatever reason, please go to emergency room and need chest X-ray. - Diet and Activity Activity: increase activity as tolerated Diet: advance to your usual diet Hospital course: Mr. Johnson is a 62 year old male with PMH of COPD on home oxygen, HTN, CAD s/ p CABG in August 2014, A-fib on Eliquis 5 mg BID, CHF who presented to [facility] ED with worsening right-sided chest pain and shortness of breath. Initial CXR found moderate to large right-sided pneumothorax and patient had emergency right chest tube placed in ED. Patient was admitted on 10/04/17 for spontaneous pneumothorax and pulmonology and cardiothoracic were consulted. The right spontaneous pneumothorax resolved and chest tube (chest tube #1) was removed on 10/09/17. But right spontaneous pneumothorax recurred so second right chest tube was placed by interventional radiologist on 10/10/17. The size of right spontaneous pneumothorax initially decreased but then increased again and required a second chest tube (chest tube #2) to be placed in the base of the right hemithorax, which was done by interventional radiologist on 10/12/17. Chest tube #2 continued to have a small air leak with CXR showing increased size of the right pneumothorax on waterseal. Per cardiothoracic surgery, it did not appear that the air leak would resolve with chest tube management and that the pneumothorax will persist without suction. Therefore, right posterolateral thoracotomy with multiple stapling of apical blebs, mechanical pleurodesis and chemical pleurodesis were warranted and performed by cardiothoracic surgeon on 10/19/17. 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 Bilateral lower extremity venous duplex on 10/24/17 found acute DVTs in bilateral gastroc veins and L ant tibial vein so patient was started on heparin drip, which was later changed to Lovenox and eventually Eliquis (10 mg BID started since 10/30/172026 ). CTA chest on 10/24/17 found dense bilateral lower lobe consolidation left greater than right suggesting multifocal pneumonia but no evidence of PE. Patient was started on empiric IV vancomycin and cefepime which was later de- escalated to IV vancomycin only after blood cultures from 10/24/17 (2/2) grew MRSA sensitive to vancomycin, daptomycin, doxycycline, gentamicin, linezolid, tetracycline and Bactrim. Repeat blood cultures on 10/25/17 have no growth to date. TTE on 10/30/17 found LVEF 60% and no visible vegetation. PRAVEENA on 10/31/17 found LVEF 60% and no evidence of vegetation. Patient was transferred out of ICU on 10/26/17 and his respiratory status continues to improve since. Cardiothoracic surgeon removed the posterior chest tube and placed a Heimlich valve on the anterior tube on 10/31/17. On 11/01/17, patient continues to maintain good oxygen saturation on 3L NC and is able to ambulate without significant problem. After reviewing patient's CXR, patient can be discharged per cardiothoracic surgeon Dr. Cobos. Given patient improves clinically and remain hemodynamically stable, patient can be discharged home with home health and home infusion for IV vancomycin via the PICC line placed on 10/31/17. Patient will need 3 more weeks of IV vancomycin therapy to finish total 4-week course (anticipated to finish on 11/21/17). The [facility] will monitor the serum vancomcyin trough level and renal function twice a week and adjust dose accordingly. Patient will have follow-up with pulmonlogist Dr. Angeles & primary care provider within a week and with cardiothoracic surgeon Dr. Cobos within 2-3 weeks. Patient is instructed to change the 4x4 gauze at distal end of chest tube/valve with new gauze as needed. Patient need to be cautious about the chest tube and is instructed to go to ED if the chest tube is yanked out for whatever reason. - Time Spent with Patient Total time spent providing and/or coordinating discharge services: Greater than 30 minutes (46 minutes) - Constitutional Vitals: Temp Pulse Resp BP Pulse Ox 98.1 F 65 16 159/92 98 11/01/17 07:11 11/01/17 07:39 11/01/17 07:11 11/01/17 07:11 11/01/17 07:11 General appearance: Present: cooperative, A&O X 3, pleasant, answers questions appropriately - Head Head exam: Present: atraumatic, normocephalic - Eye Eye exam: Present: EOMI, conjuntiva pink, sclera anicteric - Neck Neck exam general surgery: Present: supple, trachea midline. Absent: lymphadenopathy - Respiratory Respiratory exam: Present: decreased breath sounds. Absent: accessory muscle use, rales, rhonchi, wheezes - Cardiovascular Cardiovascular exam: Present: RRR, +S1, +S2. Absent: diastolic murmur, gallop, rubs, systolic murmur - GI/Abdominal GI/Abdominal exam: Present: normal bowel sounds, soft, no peritoneal signs. Absent: distended, tenderness - Extremities Exam Extremities exam: Present: warm, radial pulses palpable and symmetrical. Absent : cyanotic, pedal edema - Neurological Exam Neurological exam: Present: oriented X3, no focal deficits. Absent: facial droop, speech deficit - Skin Skin exam: Present: dry, warm - VTE Documentation of Mechanical Device: Intermittent pneumatic compression device <Richi Ansari - Last Filed: 11/02/17 08:04> Date of Encounter: 11/01/17 Procedures/tests Complete & Pending: Procedures Performed prior 72 hours Category Date Time Status EV PRAVEENA transesophageal echo Routine Y 10/31/17 12:47 Completed EV echocardiogram Routine Y 10/30/17 14:50 Completed Date of admission: 10/04/17 21:24 Primary care physician: Eleazar Kee CNP Consults: 10/04/17 22:26 Consult to Pulmonology [CONS] Routine Consulting Provider: Pulm Crit Care [facility] Sleep [facility] Reason for Consult: Pneumothorax, chest tube management Call Completed: No 10/04/17 23:48 Consult for Pharmacy Education [CONS] Routine Reason for Consult: Med rec, Eliquis and Amiodarone dose Call Completed: No 10/06/17 09:53 Consult to Cardiothoracic Surgery [CONS] Routine Consulting Provider: Cardiothoracic Surgery [facility] Reason for Consult: Spontaneous pneumothorax Time Notified: 09:00 Call Completed: Yes 10/16/17 11:03 Consult to Supervisor [employer] [CONS] Routine Reason for SW Consult: discharge planing, need for disability application and services 10/24/17 10:08 Consult to Nurse Navigator [CONS] Routine Comment: 10/30/17 15:13 PICC Consult [Consult to Invasive Line Access Team] [CONS] Routine Reason for Consult: Will likely need IV vancomycin after discharge. Line Type: PICC PICC line indications: senior living Med/Antibiotic 10/31/17 11:48 Consult to Invasive Line Access Team [CONS] Routine Reason for Consult: Picc Line Insertion Line Type: PICC Hospital course: Mr. Johnson is a 62 year old male - Time Spent with Patient Total time spent providing and/or coordinating discharge services: - Constitutional Vitals: Temp Pulse Resp BP Pulse Ox 97.1 F L 64 16 160/91 97 11/01/17 10:53 11/01/17 10:53 11/01/17 10:58 11/01/17 10:53 11/01/17 10:58 - Attending Attestation I conducted a face to face diagnostic evaluation of this patient and my medical decision-making was reviewed with the Resident Physician, Dr Jess Shrestha. I agree with the documented findings, disposition and treatment plan as described except to the extent set forth below: Patient feels well today, reports no shortness of breath or chest pain. On exam he is in no acute distress. Heart is regular. Lung exam reveals bilateral breath sounds. Chest exam reveals a well healing right thoracotomy incision and one chest tube connected to Heimlich valve. Plan: Patient will be discharged home with home health. Richi Ansari MD
--- NOTE | 2017-11-01 10:24 | Physician Discharge Referral ---
Home Health/Hosp Referral Info Transfer to: Home Health Attending Provider: Richi Ansari MD Provider in Charge Post Discharge: PCP - Diagnosis (1) MRSA bacteremia Priority: Primary Status: Acute (2) Spontaneous pneumothorax Priority: Primary Status: Acute (3) DVT (deep venous thrombosis) Priority: Secondary Status: Acute (4) Acute and chronic respiratory failure with hypoxia Priority: Secondary Status: Chronic (5) Atrial fibrillation Priority: Secondary Status: Chronic (6) Chronic systolic CHF (congestive heart failure) Priority: Secondary Status: Chronic (7) COPD (chronic obstructive pulmonary disease) Priority: Secondary Status: Chronic (8) Hypertension Priority: Secondary Status: Chronic - Respiratory Orders Oxygen / L per min (3L) Smoking Cessation: Smoking cessation has been advised. For more information, call the [place] Quit Line at 8-214-LDZZ-NOW. - Dressing/Wound Care Type of Dressing/Treatments w/Frequency: Change the 4x4 gauze wrapped at end of chest tube/valve with rubber band with new gauze as needed. - Diet/Nutrition Diet/Nutrition Orders: Regular - Activity Activity Orders: Ambulate - Services Needed Following services are medically necessary services: Nursing, Home Health Aide, Home Infusion Other Treatments: 3 more weeks of IV vancomycin therapy to finish total 4-week course. The [facility] will monitor the serum vancomcyin trough level and renal function twice a week and adjust dose accordingly. - Transfer Medications Prescriptions: HYDROcodone/Acet 10/325 mg [Jackson 10-325 mg] 1 tab PO Q4HR 5 Days #30 tablet Apixaban [Eliquis] 10 mg PO BID #20 tablet Lactulose 20 gm PO DAILY PRN #30 udc PRN Reason: Constipation Vancomycin [Vancocin] 1.25 gm IV Q12H 21 Days #14 vial Home Medications: Aspirin [Adult Low Dose Aspirin EC] 81 mg PO DAILY 02/02/16 [History] Atorvastatin Calcium [Lipitor] 80 mg PO DAILY 02/02/16 [History] Nitroglycerin [Nitrostat] 0.4 mg SL AD PRN 07/30/16 [History] Amiodarone [Cordarone] 200 mg PO DAILY 04/22/17 [History] Amlodipine Besylate 10 mg PO DAILY 10/05/17 [History] Budesonide/Formoterol 80/4.5 [Symbicort 80/4.5] 2 puff IH BID 10/05/17 [History ] Calcium Polycarbophil [Fibercon] 625 mg PO BID PRN 10/05/17 [History] Ipratropium/Albuterol Neb [Duoneb] 3 ml IH QID 10/05/17 [History] Levalbuterol HCl [Xopenex] 0.63 mg IH Q8H 10/05/17 [History] Lisinopril [Zestril] 10 mg PO BID 10/05/17 [History] Metoprolol [Lopressor] 12.5 mg PO BID 10/05/17 [History] Tiotropium [Spiriva] 18 mcg IH DAILY 10/05/17 [History] Apixaban [Eliquis] 10 mg PO BID #20 tablet 11/01/17 [Rx] HYDROcodone/Acet 10/325 mg [[place] 10-325 mg] 1 tab PO Q4HR 5 Days #30 tablet [Rx] Lactulose 20 gm PO DAILY PRN #30 udc 11/01/17 [Rx] Vancomycin [Vancocin] 1.25 gm IV Q12H 21 Days #14 vial 11/01/17 [Rx] Allergies/Adverse Reactions: 3 Allergy/AdvReac Type Severity Reaction Status Date / Time No Known Allergies Allergy Verified 10/05/17 09:26 Certification: Further, I certify that my clinical findings support that this patient is homebound (i.e. absences from home require considerable and taxing effort and are for medical reasons or yarsanism services or infrequently or short duration when for other reasons) because: Homebound Reason: Patient requires assistance of a person or device to safely leave home Attestation: My signature below is to certify that this patient is under my care and that I, or nurse practitioner, or a physician's family practice physician assistant working with me, has a face-to -face encounter with this patient.
[2017-11-01] MEDS: Tiotropium 18 MCG inhalation IH SCH (10:57)
[2017-11-01] MEDS: Budesonide/Formoterol 80/4.5 MDI IH SCH (10:57)
[2017-11-01 11:00] VITALS: BP 160/91
[2017-11-01] MEDS ORDERED: *HR* Morphine 2 MG/ML SYRINGE IVP SCH (11:20)
== END 2017-11-01 13:59 | disposition home health service (06) | DRG 163 ==
LOC: EMEROO 18:10 → 2NNU 18:10 → SUATTDRO 21:24 → 2NNU 21:46 → ICNU 10-19 08:17 → 2NNU 10-20 11:15 → ICNU 10-24 09:35 → 2NNU 10-26 16:40
PROVIDERS: ADMIT Family Medicine; ATTEND Internal Medicine

== ENCOUNTER 2017-11-05 15:21 | Observation (INO) ==
[2017-11-05 16:03] LABS: Basophils % 0.2 %; Eosinophils # 0.8 K/mcL (0.0-0.6); Eosinophils % 4.2 %; Hematocrit 29.1 % (37.5-50.1); Hemoglobin 8.7 g/dL (12.9-16.9); Immature Granulocytes % 0.7 % (0-4); Lymphocytes # 1.2 K/mcL (0.6-4.6); Lymphocytes % 6.2 %; Mean Corpuscular HGB Conc 29.9 g/dL (31.6-35.5); Mean Corpuscular Hemoglobin 26.4 pg (28.0-33.3); Mean Corpuscular Volume 88.2 fL (83.0-100.0); Mean Platelet Volume 10.3 fL (9.4-12.4); Monocytes # 1.6 K/mcL (0.0-1.3); Monocytes % 8.2 %; Neutrophils # 15.3 K/mcL (1.6-8.9); Platelet Count 429 K/mcL (140-400); Red Cell Distribution Width 16.4 % (11.5-14.5); Segmented Neutrophils % 80.5 %
[2017-11-05 16:19] LABS: BUN/Creatinine Ratio 15 (6-26); Blood Urea Nitrogen 15 mg/dL (8-23); Calcium 8.5 mg/dL (8.6-10.3); Carbon Dioxide 29 mEq/L (23-29); Chloride 102 mEq/L (98-107); Glucose 141 mg/dL (70-105); Osmolality,Calculated 287 (280-300); Sodium 137 mEq/L (136-145); eGFR For African Americans > 60 (> 60); eGFR For Non-African Americans > 60 (> 60)
[2017-11-05 16:20] LABS: Bilirubin,Urine Negative (Negative); Blood,Urine Negative (Negative); Clarity,Urine Clear (Clear); Color,Urine Yellow (Yellow); Glucose,Urine (UA) Normal (Normal); Ketones,Urine Negative (Negative); Leukocyte Esterase,Urine Negative (Negative); Nitrite,Urine Negative (Negative); PH,Urine 5.5 pH Units (5.0-8.0); Protein,Urine Trace mg/dL (Neg-Trace); Specific Gravity,Urine > 1.030 (1.010-1.025); Urobilinogen,Urine Normal (Normal)
[2017-11-05 16:21] LABS: Bacteria,Urine None Seen per hpf (None-Few); Hyaline Casts,Urine None Seen per lpf (None-Few); Squamous Epithelial Cell,Urine Moderate per lpf (None-Few)
[2017-11-05 16:34] LABS: INR 1.5; Prothrombin Time 16.2 Seconds (9.4-12.1)
[2017-11-05] MEDS ORDERED: *HR* Morphine 2 MG/ML SYRINGE IVP ONE (16:34)
[2017-11-05] MEDS ORDERED: Ondansetron 4 MG/2 ML VIAL IVP ONE (16:34)
[2017-11-05 16:36] LABS: Activated Partial Thrombo Time 32.3 Seconds (26.0-36.0)
--- NOTE | 2017-11-05 17:22 | Emergency Department Note ---
Disposition Clinical Impression: Elevated troponin, Lower extremity edema, MRSA bacteremia DVT (deep venous thrombosis) Qualifiers: DVT location: lower extremity Affected thrombotic vein of extremity: unspecified vein of extremity Chronicity: chronic Laterality: left Qualified Code(s): I82.502 - Chronic embolism and thrombosis of unspecified deep veins of left lower extremity Disposition: Admitted As Inpatient Condition: Fair Time of Disposition: 19:11 General Adult HPI - General Chief complaint: ED Shortness of Breath/Dyspnea Stated complaint: Swelling in legs Time Seen by Provider: 11/05/17 15:30 Source: patient Mode of arrival: wheelchair Limitations: no limitations Nursing Notes Reviewed: Yes Vital Signs Reviewed: Yes - History of Present Illness HPI Narrative: Patient is a 62-year-old male with a past medical history of CABG in 2013, recent admission to the hospital for 4 or rupture of a bleb in his lung in which he underwent a thoracotomy that occurred over and during the patient's stay he also had MRSA bacteremia and was also diagnosed with bilateral DVTs. The patient is presenting today with a complaint of chest heaviness and worsening of his lower extremity edema. The patient was discharged from the hospital on 11/01/2017. Denies any nausea, vomiting, diaphoresis or exertional pain. Denies shortness of breath at this time. Pain Scale: 5 - Related Data Home Medications Medication Instructions Recorded Confirmed Aspirin [Adult Low Dose Aspirin EC] 81 mg PO DAILY 02/02/16 10/05/17 Atorvastatin Calcium [Lipitor] 80 mg PO DAILY 02/02/16 10/05/17 Nitroglycerin [Nitrostat] 0.4 mg SL AD PRN 07/30/16 10/05/17 Amiodarone [Cordarone] 200 mg PO DAILY 04/22/17 10/05/17 Amlodipine Besylate 10 mg PO DAILY 10/05/17 10/05/17 Budesonide/Formoterol 80/4.5 2 puff IH BID 10/05/17 10/05/17 [Symbicort 80/4.5] Calcium Polycarbophil [Fibercon] 625 mg PO BID PRN 10/05/17 10/05/17 Ipratropium/Albuterol Neb [Duoneb] 3 ml IH QID 10/05/17 10/05/17 Levalbuterol HCl [Xopenex] 0.63 mg IH Q8H 10/05/17 10/05/17 Lisinopril [Zestril] 10 mg PO BID 10/05/17 10/05/17 Metoprolol [Lopressor] 12.5 mg PO BID 10/05/17 10/05/17 Tiotropium [Spiriva] 18 mcg IH DAILY 10/05/17 10/05/17 Previous Rx's Medication Instructions Recorded Apixaban [Eliquis] 10 mg PO BID #20 tablet 11/01/17 HYDROcodone/Acet 10/325 mg [[place] 1 tab PO Q4HR 5 Days #30 tablet 11/01/17 10-325 mg] Lactulose 20 gm PO DAILY PRN #30 udc 11/01/17 Vancomycin [Vancocin] 1.25 gm IV Q12H 21 Days #14 vial 11/01/17 Allergies Allergy/AdvReac Type Severity Reaction Status Date / Time No Known Allergies Allergy Verified 10/05/17 09:26 All systems ED: reviewed and negative except as stated. Review of Systems: As Per HPI Constitutional: Denies: fever, chills Cardiovascular: Reports: chest pain, edema. Denies: palpitations, dyspnea on exertion, orthopnea, syncope Respiratory: Denies: cough, dyspnea Past Medical History - Past Medical History Attestation: Yes The following information was validated with the patient. Medical history: Reports: asthma, atrial fibrillation, cardiomyopathy, CHF, COPD , coronary artery disease, hyperlipidemia, hypertension Surgical history: Reports: coronary bypass (CABG), herniorrhaphy, other Psychiatric history: Reports: anxiety - Social History Smoking Status: Former smoker Smokeless Tobacco Status: No Alcohol use: Reports: none Drug use: Reports: none Physical Exam CONSTITUTIONAL: Alert and oriented X3, well-nourished, in no apparent distress HEAD: Normocephalic; atraumatic. EYES: PERRL, no scleral icterus. NOSE: The nose is normal in appearance without rhinorrhea RESP: Normal chest excursion with respiration; breath sounds clear and equal bilaterally; no wheezes, rhonchi, or rales CARD: Regular rhythm, without murmurs, rub or gallop CHEST: Patient has a Heimlich valve on the right side of his chest for draining. There is no surrounding erythema. He also has a CABG scar on the vertical aspect of his sternum. ABD: Non-distended; non-tender, soft,without rigidity, rebound or guarding SKIN: Normal for age and race; warm and dry; no apparent lesions EXT: Bilateral lower extremity edema 2+ and pitting. PICC line in the left arm. - General Limitations: no limitations General appearance: alert, appears intoxicated Course Course Narrative: Patient is a 62-year-old male recently discharged from the hospital after being treated for a COPD bleb which required a thoracotomy and he currently has a Heimlich valve placed on the right side. The patient's had MRSA bacteremia while in the hospital is currently being treated outpatient with vancomycin and he has a PICC line in his left arm. Today the patient is presenting with complaint of chest heaviness and increased swelling of his lower extremities. He is not currently on a diuretic, however his home health nurse yesterday called his primary care physician and he was given a twice a day 40 mg dose of Lasix. The patient also had a echo done when he was admitted recently in the hospital and showed an EF of 60%. The plan is to do a Doppler ultrasound of the bilateral lower extremities to evaluate the effectiveness of treatment of the DVT is also do a CT of the chest to look for any PE. We also do a cardiac workup of the patient. - Reevaluation(s) Reevaluation #1: The patient has a leukocytosis and a low hemoglobin however when compared to prior labs this is chronic for him also taken a consideration that the patient is currently being treated by vancomycin for his MRSA bacteremia. The patient' s troponin came back elevated at 0.04 however his most recent troponin was not elevated. Due the patient having chest pain with elevation of his troponin plan is to admit him to the hospital for serial troponins and further evaluation and treatment. Imaging revealed no pulmonary embolism and what appears to be improvement from prior imaging overall the patient's lung status. The DVT rule out venous Dopplers of the bilateral lower extremities showed resolution of the right lower extremity DVT with a remaining left lower extremity DVT. I discussed these findings with the hospitalist and he agrees except the patient. The patient was also started on IV Lasix for the bilateral lower extremity swelling Time: 23:55 Vital Signs Temperature 98.2 F 11/05/17 15:26 Pulse Rate 80 11/05/17 15:26 Respiratory Rate 18 11/05/17 15:26 Blood Pressure 111/64 11/05/17 15:26 O2 Sat by Pulse Oximetry 94 11/05/17 15:26 Temperature 98.8 F 11/05/17 23:19 Pulse Rate 76 11/05/17 23:19 Respiratory Rate 16 11/05/17 23:19 Blood Pressure 119/64 11/05/17 23:19 O2 Sat by Pulse Oximetry 96 11/05/17 23:19 Oxygen Delivery Oxygen Delivery Room Air Medical Decision Making - Medical Records Medical records reviewed: Yes I reviewed the patient's medical records. - Lab Data Lab results reviewed: Yes I reviewed the patient's lab results. Result diagrams: 11/05/17 15:45 11/05/17 15:45 Lab Results 11/05/17 11/05/17 11/05/17 Range/Units 15:45 15:45 15:45 WBC 19.0 H (4.3-11.1) K/mcL RBC 3.30 L (4.19-5.50) M/mcL Hgb 8.7 L (12.9-16.9) g/dL Hct 29.1 L (37.5-50.1) % MCV 88.2 (83.0-100.0) fL MCH 26.4 L (28.0-33.3) pg MCHC 29.9 L (31.6-35.5) g/dL RDW 16.4 H (11.5-14.5) % Plt Count 429 H (140-400) K/mcL MPV 10.3 (9.4-12.4) fL Immature Gran % 0.7 (0-4) % Seg Neutrophils % 80.5 % Lymphocytes % 6.2 % Monocytes % 8.2 % Eosinophils % 4.2 % Basophils % 0.2 % Neutrophils # 15.3 H (1.6-8.9) K/mcL Lymphocytes # 1.2 (0.6-4.6) K/mcL Monocytes # 1.6 H (0.0-1.3) K/mcL Eosinophils # 0.8 H (0.0-0.6) K/mcL Basophils # 0.0 (0.0-0.2) K/mcL PT (9.4-12.1) Seconds INR APTT (26.0-36.0) Seconds Sodium 137 (136-145) mEq/L Potassium 4.0 (3.5-5.1) mEq/L Chloride 102 (98-107) mEq/L Carbon Dioxide 29 (23-29) mEq/L BUN 15 (8-23) mg/dL Creatinine 0.99 (0.70-1.30) mg/dL Est GFR ( Amer) > 60 (> 60) Est GFR (Non-Af Amer) > 60 (> 60) BUN/Creatinine Ratio 15 (6-26) Glucose 141 H (70-105) mg/dL Calculated Osmolality 287 (280-300) Calcium 8.5 L (8.6-10.3) mg/dL Troponin I (< 0.04) ng/mL B-Natriuretic Peptide 70 (Less than 100) pg/mL Urine Color (Yellow) Urine Clarity (Clear) Urine pH (5.0-8.0) pH Units Ur Specific [place] (1.010-1.025) Urine Protein (Neg-Trace) mg/dL Urine Glucose (UA) (Normal) mg/dL Urine Ketones (Negative) mg/dL Urine Blood (Negative) Urine Nitrite (Negative) Urine Bilirubin (Negative) Urine Urobilinogen (Normal) mg/dL Ur Leukocyte Esterase (Negative) Urine Microscopic RBC (0-3) per hpf Urine Microscopic WBC (0-3) per hpf Ur Squamous Epith Cells (None-Few) per lpf Urine Bacteria (None-Few) per hpf Hyaline Casts (None-Few) per lpf Ur Culture Indicated? (NO) 11/05/17 11/05/17 11/05/17 Range/Units 15:45 15:45 16:10 WBC (4.3-11.1) K/mcL RBC (4.19-5.50) M/mcL Hgb (12.9-16.9) g/dL Hct (37.5-50.1) % MCV (83.0-100.0) fL MCH (28.0-33.3) pg MCHC (31.6-35.5) g/dL RDW (11.5-14.5) % Plt Count (140-400) K/mcL MPV (9.4-12.4) fL Immature Gran % (0-4) % Seg Neutrophils % % Lymphocytes % % Monocytes % % Eosinophils % % Basophils % % Neutrophils # (1.6-8.9) K/mcL Lymphocytes # (0.6-4.6) K/mcL Monocytes # (0.0-1.3) K/mcL Eosinophils # (0.0-0.6) K/mcL Basophils # (0.0-0.2) K/mcL PT 16.2 H (9.4-12.1) Seconds INR 1.5 APTT 32.3 (26.0-36.0) Seconds Sodium (136-145) mEq/L Potassium (3.5-5.1) mEq/L Chloride (98-107) mEq/L Carbon Dioxide (23-29) mEq/L BUN (8-23) mg/dL Creatinine (0.70-1.30) mg/dL Est GFR ( Amer) (> 60) Est GFR (Non-Af Amer) (> 60) BUN/Creatinine Ratio (6-26) Glucose (70-105) mg/dL Calculated Osmolality (280-300) Calcium (8.6-10.3) mg/dL Troponin I 0.04 H* (< 0.04) ng/mL B-Natriuretic Peptide (Less than 100) pg/mL Urine Color Yellow (Yellow) Urine Clarity Clear (Clear) Urine pH 5.5 (5.0-8.0) pH Units Ur Specific [place] > 1.030 H (1.010-1.025) Urine Protein Trace (Neg-Trace) mg/dL Urine Glucose (UA) Normal (Normal) mg/dL Urine Ketones Negative (Negative) mg/dL Urine Blood Negative (Negative) Urine Nitrite Negative (Negative) Urine Bilirubin Negative (Negative) Urine Urobilinogen Normal (Normal) mg/dL Ur Leukocyte Esterase Negative (Negative) Urine Microscopic RBC 5-15 H (0-3) per hpf Urine Microscopic WBC 3-5 H (0-3) per hpf Ur Squamous Epith Cells Moderate H (None-Few) per lpf Urine Bacteria None Seen (None-Few) per hpf Hyaline Casts None Seen (None-Few) per lpf Ur Culture Indicated? NO (NO) - Radiology Data Radiology results reviewed: Yes I reviewed the patient's radiology results. Chest X-Ray 11/05/17 15:43 IMPRESSION: Right-sided chest tube remains in place with small unchanged residual pneumothorax. Interval increase in right basilar pleural fluid. Improved right-sided airspace disease. D/ / Rafa Sterling MD / Rafa Sterling MD Interpreting Provider: Rafa Sterling MD Chest X-Ray 11/05/17 15:43 IMPRESSION: Right-sided chest tube remains in place with small unchanged residual pneumothorax. Interval increase in right basilar pleural fluid. Improved right-sided airspace disease. D/ / Rafa Sterling MD / Rafa Sterling MD Interpreting Provider: Rafa Sterling MD Chest CTA 11/05/17 15:56 IMPRESSION: 1. No evidence of pulmonary emboli. 2. Single right chest tube in place with a small/moderately sized hydropneumothorax at the right lower chest. 3. Improvement of previously noted bilateral lower lobe dense consolidation with mild residual atelectasis or consolidation at the lung bases. 4. Emphysema. 5. Improvement in previously noted ground-glass opacities in the right apex with persistent fibronodular areas that likely represent scarring. 6. Emphysema. 7. Status post median sternotomy and cardiomegaly. D/ / 11/05/2017 18:46:01 Alfred Mcqueen MD / Elisha Watts Interpreting Provider: Alferd Mcqueen MD - EKG Data EKG #1 EKG attestation: Yes I reviewed and interpreted this EKG. EKG results narrative: patient EKG interpreted by me at 15:S SINUS RHYTHM AT A RATE OF 79. Normal axis. AL is 166, QRS is 90, QT is 383 an is 418 these are within normal limits. The ekg shows non-specific t-wave abnormalities in leads III, no ST elevation or depression. No Q waves present. Attestation Statement - Attestation Attestation: I, Alex Morel, examined this patient and my medical decision-making was reviewed with the EDITOR IN CHIEF NEWSPAPER/PA/Advanced Practice Nurse/Resident Physician. I agree with the documented findings, disposition and treatment plan as described except to the extent set forth below. 62-year-old male presents to emergency Department with concerns of increased swelling of the bilateral lower extremities as well as increased chest pain. Patient has had a complicated recent hospital history as he had an acute pneumothorax secondary to bullous emphysema which then developed infection and required antibiotics. Patient became bacteremic and was discharged with vancomycin through a PICC line. Patient states he had chest pain while he was in the hospital however he now describes the chest pain as somewhat different and worse than it had been previously he is unable to describe fully with the pain is like. Patient was also concerned about bilateral lower extremity swelling greater than it had been in the hospital. Patient was diagnosed with bilateral lower extremity DVT. He has a history of newly diagnosed HIV fibrillation over the past few months and was taking eliquis. The Eliquis was stopped prior to his pleurodesis surgery and then restarted however he developed these DVTs within that time. He was then started back on the Eliquis which she has taken faithfully since that time. Repeat ultrasound of bilateral lower extremity shows improvement of the blood clots. Initial troponin was elevated to 0.04, he has a history of elevated troponins in the past however his last one prior to leaving hospital is 0.01. Troponin did not show evidence of acute STEMI. Patient will be admitted to the hospital for further care and evaluation. He was given Lasix for the swelling in his bilateral lower extremities. CT of the chest did not show evidence of acute PE. No critical care time other than documented on this patient.
[2017-11-05] MEDS ORDERED: *HR* HYDROmorphone (PF) 1 MG/ML SYRINGE IVP ONE (19:17)
[2017-11-05] MEDS ORDERED: Furosemide 40 MG in 0.9 % Sodium Chloride 50 ML IVPB ONE (19:17)
--- NOTE | 2017-11-05 20:53 | Internal Med History&Physical ---
<Shyam Ward - Last Filed: 11/05/17 20:39> Date of Encounter: 11/05/17 Time of Encounter: 20:39 Assessment and Plan (1) Chest heaviness Current visit: Yes Status: Acute Patient complaints of chest heaviness that started today. No significant EKG changes. Chest x-ray and CTA at the chest were negative. Mildly elevated components. Patient has a history of CAD s/p CABG In 2013. Need to rule out ACS. 1. Place on continuous heart monitoring. 2. Track series of troponins. 3. TTE in the morning to reevaluate the systolic function. (2) Hypertension Current visit: No Status: Chronic Continue home medications. Qualifiers: Hypertension type: essential hypertension Qualified Code(s): I10 - Essential (primary) hypertension (3) Elevated troponin Current visit: Yes Status: Acute Continue to track series of troponins. (4) Atrial fibrillation Current visit: No Status: Chronic Patient is currently in sinus rhythm. Heart rate is well-controlled. Continue to monitor the patient and continue eliquis. Qualifiers: Atrial fibrillation type: chronic Qualified Code(s): I48.2 - Chronic atrial fibrillation (5) COPD (chronic obstructive pulmonary disease) Current visit: No Status: Chronic Mery is currently stable with no signs of exacerbation. Continue to monitor the patient. Continue home medications. Qualifiers: COPD type: emphysema Emphysema type: centrilobular Qualified Code(s): J43.2 - Centrilobular emphysema (6) DVT (deep venous thrombosis) Current visit: Yes Status: Acute Repeat Doppler ultrasound showed no acute DVT. Currently have chronic DVT in the right lower extremities and negative DVT for the left lower extremity. Continue the patient on Eliquis. Qualifiers: DVT location: lower extremity Affected thrombotic vein of extremity: unspecified vein of extremity Chronicity: chronic Laterality: left Qualified Code(s): I82.502 - Chronic embolism and thrombosis of unspecified deep veins of left lower extremity (7) MRSA bacteremia Current visit: Yes Status: Acute Continue the patient on IV vancomycin for the four-week course of treatment. The last dose of IV vancomycin should be on November 21. (8) Lower extremity edema Current visit: Yes Status: Acute Etiology is undetermined. Previous echo showed EF of 60%. BNP is 70. CXR didn't showed any pulmonary congestion. Will check LFTs tomorrow morning. Encourage the patient to elevate his lower extremities and to continue to ambulate. Internal Medicine - H&P: HPI Chief complaint: Chest heaviness, SOB, and swelling of bilateral lower extremities Admitted From: Emergency Dept History of present illness: Mr. Johnson is a 62 year old male with the past medical history of CAD, CABG in 2013, AFib, bilateral DVT, and COPD who presents to the emergency department complaining chest heaviness, shortness of breath, and worsening of his lower extremities swelling. The patient states that he was recently discharged from the hospital on 11/01/2017 after being admitted for approximately a month for a rupture bleb in has lung. The patient states that since his discharge, he noticed that both of his legs appeared more swollen. He admits that he began having chest heaviness and more shortness of breath that started today. He is currently on 3 1/2 L of oxygen at home and denies any improvement with home oxygen. The patient admits tingling this in his bilateral lower extremities but denies any pain, fever, headache, vision changes, chest pain, abdominal pain , changes in his bowel movements, urination, and any numbness. Past Med Surg Social Fam HX - Past Medical History Medical history: asthma, atrial fibrillation, cardiomyopathy, CHF, COPD, coronary artery disease, hyperlipidemia, hypertension Psychiatric history: anxiety - Past Surgical History Surgical History: coronary bypass (CABG), herniorrhaphy, other - Social History Smoking Status: Former smoker Smokeless Tobacco Status: No Alcohol use: none Drug use: none - Family History Mother Living Status: Hx Family Neurologic Disorders: Yes (Alzheimer's) Father Living Status: Hx Family GI Disorders: Yes (Liver disease, alcoholism) Internal Medicine - H&P: Meds Aspirin [Adult Low Dose Aspirin EC] 81 mg PO DAILY 02/02/16 [History] Atorvastatin Calcium [Lipitor] 80 mg PO DAILY 02/02/16 [History] Nitroglycerin [Nitrostat] 0.4 mg SL AD PRN 07/30/16 [History] Amiodarone [Cordarone] 200 mg PO DAILY 04/22/17 [History] Amlodipine Besylate 10 mg PO DAILY 10/05/17 [History] Budesonide/Formoterol 80/4.5 [Symbicort 80/4.5] 2 puff IH BID 10/05/17 [History ] Calcium Polycarbophil [Fibercon] 625 mg PO BID PRN 10/05/17 [History] Ipratropium/Albuterol Neb [Duoneb] 3 ml IH QID 10/05/17 [History] Levalbuterol HCl [Xopenex] 0.63 mg IH Q8H 10/05/17 [History] Lisinopril [Zestril] 10 mg PO BID 10/05/17 [History] Metoprolol [Lopressor] 12.5 mg PO BID 10/05/17 [History] Tiotropium [Spiriva] 18 mcg IH DAILY 10/05/17 [History] Apixaban [Eliquis] 10 mg PO BID #20 tablet 11/01/17 [Rx] HYDROcodone/Acet 10/325 mg [[place] 10-325 mg] 1 tab PO Q4HR 5 Days #30 tablet [Rx] Lactulose 20 gm PO DAILY PRN #30 udc 11/01/17 [Rx] Vancomycin [Vancocin] 1.25 gm IV Q12H 21 Days #14 vial 11/01/17 [Rx] 3 Allergy/AdvReac Type Severity Reaction Status Date / Time No Known Allergies Allergy Verified 10/05/17 09:26 All Systems PM: A 10-system review of systems was performed and is negative for pertinent findings except as documented above in the HPI. - Constitutional Vitals: Temp Pulse Resp BP Pulse Ox 98.2 F 68 94 135/85 94 11/05/17 15:26 11/05/17 19:48 11/05/17 19:48 11/05/17 19:48 11/05/17 19:48 - Head Head exam: Present: atraumatic, normocephalic - Eye Eye exam: Present: PERRL, conjuntiva pink, sclera anicteric Pupils: Present: PERRL - Neck Neck exam general surgery: Present: supple, trachea midline. Absent: lymphadenopathy - Respiratory Respiratory exam: Present: CTAB, wheezes (few scattered wheezes in upper lung cedillo occasionally). Absent: accessory muscle use, rales, rhonchi Additional comments: Right sided chest tube in place. - Cardiovascular Cardiovascular exam: Present: RRR, +S1, +S2. Absent: diastolic murmur, gallop, rubs, systolic murmur - GI/Abdominal GI/Abdominal exam: Present: normal bowel sounds, soft, no peritoneal signs. Absent: distended, tenderness - Extremities Exam Extremities exam: Present: pedal edema (bilateral bild to moderate pedal edema with +1 pitting.), warm, radial pulses palpable and symmetrical. Absent: calf tenderness, cyanotic - Neurological Exam Neurological exam: Present: CN II-XII intact, oriented X3, no focal deficits. Absent: pronater drift, facial droop, speech deficit - Skin Skin exam: Present: dry, intact Internal Med - H&P Results - Labs CBC & Chem 7: 11/05/17 15:45 11/05/17 15:45 - EKG Data -: EKG Interpreted by Myself EKG shows normal: sinus rhythm Rate: normal <Holly Garzon - Last Filed: 11/05/17 23:15> Date of Encounter: 11/05/17 Internal Medicine - H&P: HPI History of present illness: Mr. Johnson is a 62 year old male All Systems PM: A 10-system review of systems was performed and is negative for pertinent findings except as documented above in the HPI. - Constitutional Vitals: Temp Pulse Resp BP Pulse Ox 98.9 F 77 16 130/75 95 11/05/17 21:01 11/05/17 21:01 11/05/17 21:01 11/05/17 21:01 11/05/17 21:01 Internal Med - H&P Results - Labs CBC & Chem 7: 11/05/17 15:45 11/05/17 15:45 - Attending Attestation I have seen and examined the patient independently. I have discussed that with resident physician Dr Ward regarding the management plan. Agree with that documentation. Patient was recently discharged from hospital for pneumothorax. Patient complains of mild chest discomfort and bilateral leg swelling. ER shows mild elevation of troponin. Patient has history of DVT on Eliquis. Repeat Doppler bilateral leg shows no acute DVT. Will continue some monitor patient in telemetry and check 3 sets of troponin. We will check liver function and repeat echo for leg swelling. Patient started to take amlodipine for about 6 months, which may account for leg swelling as well. We will hold amlodipine and closely monitor BP.
[2017-11-05] MEDS ORDERED: Naloxone 0.4 MG/ML INJ IVP PRN (21:11)
[2017-11-05] MEDS ORDERED: Acetaminophen 325 MG TABLET PO PRN (21:11)
[2017-11-05] MEDS ORDERED: Nitroglycerin 0.4 MG TAB.SUBL SL PRN (21:15)
[2017-11-05] MEDS ORDERED: Apixaban 5 MG TABLET PO STA (21:41)
[2017-11-05] MEDS ORDERED: Vancomycin 1,250 MG in D5% in Water 250 ML IVPB SCH (22:00)
[2017-11-05] MEDS: *HR* OxyCODONE/APAP 10/325 TABLET PO PRN (22:38)
[2017-11-05] MEDS ORDERED: *HR* Morphine 2 MG/ML SYRINGE IVP PRN (22:57)
[2017-11-05] MEDS: Vancomycin 1,250 MG in D5% in Water 250 ML IVPB SCH (23:47)
[2017-11-06] MEDS ORDERED: *HR* HYDROmorphone (PF) 1 MG/ML SYRINGE IVP PRN (03:20)
[2017-11-06 04:13] LABS: Basophils % 0.2 %; Eosinophils # 0.7 K/mcL (0.0-0.6); Eosinophils % 3.8 %; Hematocrit 28.5 % (37.5-50.1); Hemoglobin 8.6 g/dL (12.9-16.9); Immature Granulocytes % 0.5 % (0-4); Lymphocytes # 1.5 K/mcL (0.6-4.6); Lymphocytes % 8.5 %; Mean Corpuscular HGB Conc 30.2 g/dL (31.6-35.5); Mean Corpuscular Hemoglobin 26.7 pg (28.0-33.3); Mean Corpuscular Volume 88.5 fL (83.0-100.0); Mean Platelet Volume 10.4 fL (9.4-12.4); Monocytes # 1.8 K/mcL (0.0-1.3); Monocytes % 10.2 %; Neutrophils # 13.2 K/mcL (1.6-8.9); Platelet Count 454 K/mcL (140-400); Red Blood Count 3.22 M/mcL (4.19-5.50); Red Cell Distribution Width 16.3 % (11.5-14.5); Segmented Neutrophils % 76.8 %
[2017-11-06 04:30] LABS: Alanine Aminotransferase 27 Units/L (7-52); Albumin 2.9 g/dL (3.5-5.7); Albumin/Globulin Ratio 0.9 (1.1-2.2); Alkaline Phosphatase 73 Units/L (34-104); Aspartate Amino Transferase 16 Units/L (13-39); BUN/Creatinine Ratio 18 (6-26); Bilirubin,Total 0.3 mg/dL (0.3-1.0); Blood Urea Nitrogen 17 mg/dL (8-23); Calcium 8.7 mg/dL (8.6-10.3); Carbon Dioxide 34 mEq/L (23-29); Chloride 101 mEq/L (98-107); Globulin 3.3 g/dL (2.4-3.5); Glucose 88 mg/dL (70-105); Magnesium 1.9 mg/dL (1.6-2.6); Osmolality,Calculated 289 (280-300); Sodium 139 mEq/L (136-145); Total Protein 6.2 g/dL (6.4-8.9); eGFR For African Americans > 60 (> 60); eGFR For Non-African Americans > 60 (> 60)
[2017-11-06] MEDS: Budesonide/Formoterol 80/4.5 MDI IH SCH ×2 (07:48→20:30)
[2017-11-06] MEDS: Apixaban 5 MG TABLET PO SCH ×2 (08:21→22:16)
[2017-11-06] MEDS: Aspirin Enteric Coated 81 MG Tablet PO SCH (08:21)
[2017-11-06] MEDS: *HR* OxyCODONE/APAP 10/325 TABLET PO PRN (08:21)
--- NOTE | 2017-11-06 10:09 | Cardiology Consult Note ---
<Naeem Ramírez - Last Filed: 11/06/17 15:02> Date of Encounter: 11/06/17 Time of Encounter: 10:00 Assessment and Plan (1) Chest pain Current Visit: No Status: Acute Presented to the hospital with chest heaviness. No significant EKG changes; CTA and CXR were unremarkable. Troponin elevated on presentation at 0.04; has since increased to 0.07. Known history of CAD s/p CABG in 2013. Last echo on 10/31/17 demonstrated the following (performed due to bacteremia): -LVEF 60%. -Mild concentric LVH. -Abnormal (paradoxical) motion consistent with post-operative status. -Mild MR. Repeat ECHO unremarkable. Plan: -Continuous cardiac monitoring. -ASA 81 mg PO daily -Nitroglycerin 0.4 mg SL PRN -Continue to trend troponins. Qualifiers: Chest pain type: unspecified Qualified Code(s): R07.9 - Chest pain, unspecified (2) Hypertension Current Visit: No Status: Chronic Patient has a known history of hypertension. Currently well-controlled at 130/76. Plan: -Lisinopril 10 mg PO BID -Metoprolol 12.5 mg PO BID -Patient has been on amlodipine x 6 months, which has been held. Qualifiers: Hypertension type: essential hypertension Qualified Code(s): I10 - Essential (primary) hypertension (3) Atrial fibrillation Current Visit: No Status: Chronic Patient has a known history of atrial fibrillation. Plan: -Eliquis 5mg PO BID Qualifiers: Atrial fibrillation type: chronic Qualified Code(s): I48.2 - Chronic atrial fibrillation (4) Elevated troponin Current Visit: Yes Status: Acute Troponin was elevated on presentation at 0.04. Bone and levels were as follows: 0.04, 0.04, 0.07. Discussion w patient/family: The assessment and plan as outlined above was discussed with the patient and/or family members who expressed understanding and agreement. All questions were answered. Thank you for involving us in the care of your patient. Please call with any questions. History of Present Illness Consult date: 11/06/17 Chief complaint: Chest pain History of present illness: Mr. Johnson is a 62 year old male with a PMH of CAD, CABG in 2013, AFib, bilateral DVT, and COPD who presented to the ED on 11/05/17 with the chief complaint of chest heaviness, SOB, and worsening LE swelling. Was recently discharged from the hospital on 11/01/2017 after being admitted for approximately a month for a ruptured bleb in his lung. He underwent a thoracotomy. He also developed MRSA bacteremia and was diagnosed with bilateral DVTs. Heimlich valve was placed on his right side. Patient has been treated with vancomycin in the outpatient setting since his discharge (Last dose scheduled for November 21); has a PICC line in L arm. He states that since his discharge, he noticed that both legs appeared more swollen. He began having chest heaviness and SOB on date of arrival. He is on 3 1/2 L of O2 at home; no improvement in SOB with home O2. Has tingling this in his bilateral LEs; denies any pain, fever, headache, vision changes, abdominal pain, changes in his bowel movements, urination, and any numbness. Vital signs were within normal limits on presentation. Laboratory examination demonstrated WC of 19 and Hb of 8.6. Troponin was elevated at 0.04 on presentation; has since increased to 0.07. CXR demonstrated R-sided chest tube , small unchanged residual pneumothorax, interval increase in R basilar pleural fluid. CTA showed no PE. Repeat Doppler bilateral leg shows no acute DVT. Patient seen and examined at bedside this morning. Reports chest discomfort and SOB worse with deep inspiration and activity. Also complains of LE swelling , worse on the L. Has improved since admission. No pitting edema present. Currently on 3.5 L O2 via NC. No other complaints at this time. Past Med Surg Social Fam HX - Past Medical History Medical history: asthma, atrial fibrillation, cardiomyopathy, CHF, COPD, coronary artery disease, hyperlipidemia, hypertension Psychiatric history: anxiety - Past Surgical History Surgical History: coronary bypass (CABG), herniorrhaphy, other - Social History Smoking Status: Former smoker Smokeless Tobacco Status: No Alcohol use: none Drug use: none - Family History Mother Living Status: Cause of : natural Hx Family Cardiac Disorders: No Hx Family Respiratory Disorders: No Hx Family Cancer: No Hx Family GI Disorders: No Hx Family Genitourinary Disorders: No Hx Family Endocrine Disorder: No Hx Family Musculoskeletal Disorders: No Hx Family Neuromuscular Disorders: No Hx Family Neurologic Disorders: No Hx Family HEENT Disorders: No Hx Family Autoimmune Disorders: No Hx Family Reproductive Disorders: No Hx Family Psychosocial Disorders: No Hx Family Medical Disorders: No Father Living Status: Cause of : cirrhois of liver Hx Family Cardiac Disorders: No Hx Family Respiratory Disorders: No Hx Family Cancer: No Hx Family GI Disorders: No Hx Family Genitourinary Disorders: No Hx Family Endocrine Disorder: No Hx Family Musculoskeletal Disorders: No Hx Family Neuromuscular Disorders: No Hx Family Neurologic Disorders: No Hx Family HEENT Disorders: No Hx Family Autoimmune Disorders: No Hx Family Reproductive Disorders: No Hx Family Psychosocial Disorders: No Hx Family Medical Disorders: No Medications and Allergies Aspirin [Adult Low Dose Aspirin EC] 81 mg PO DAILY 02/02/16 [History] Atorvastatin Calcium [Lipitor] 80 mg PO DAILY 02/02/16 [History] Nitroglycerin [Nitrostat] 0.4 mg SL AD PRN 07/30/16 [History] Amiodarone [Cordarone] 200 mg PO DAILY 04/22/17 [History] Budesonide/Formoterol 80/4.5 [Symbicort 80/4.5] 2 puff IH BID 10/05/17 [History ] Calcium Polycarbophil [Fibercon] 625 mg PO BID PRN 10/05/17 [History] Ipratropium/Albuterol Neb [Duoneb] 3 ml IH QID 10/05/17 [History] Lisinopril [Zestril] 20 mg PO DAILY 10/05/17 [History] Metoprolol [Lopressor] 12.5 mg PO BID 10/05/17 [History] Apixaban [Eliquis] 10 mg PO BID #20 tablet 11/01/17 [Rx] HYDROcodone/Acet 10/325 mg [[place] 10-325 mg] 1 tab PO Q4HR 5 Days #30 tablet [Rx] Lactulose 20 gm PO DAILY PRN #30 udc 11/01/17 [Rx] Furosemide [Lasix] 40 mg PO BID 11/06/17 [History] 3 Allergy/AdvReac Type Severity Reaction Status Date / Time No Known Allergies Allergy Verified 11/06/17 11:37 All Systems Review: A 10-system review of systems was performed and is negative for pertinent findings except as documented above in the HPI. - Cardiovascular Cardiovascular: irregular heart rhythm, no chest pain at rest, no dyspnea at rest, no dyspnea on exertion, no radiating jaw, neck or arm pain - Neurological Neurological: no syncope Physical Examination Vital Signs, Last 4 Hours Temp Pulse Resp BP Pulse Ox 11/06/17 07:48 16 93 11/06/17 07:39 92 11/06/17 06:51 98.7 F 68 15 130/76 89 General: Conversant, No Apparent Distress HEENT: Atraumatic, Normocephaly, Mucus Membranes Moist Neck: No JVD, Normal carotid pulses Cardiac: Reg Rate and Rhythm, Normal S1 and S2, No Murmur Lungs: Normal Breath Sounds, No Wheeze, Rales, Rhonchi Neuro: Alert and responsive, No focal deficits noted Abdomen: Soft, Non-Tender Skin: No rashes noted on visualized skin Musculoskeletal: No Chest Wall Tenderness Extremities: No Clubbing, No Cyanosis, No Edema, Normal Pulses Results 11/06/17 02:57 11/06/17 02:57 Lab Results 11/05/17 11/06/17 11/06/17 22:43 02:57 02:57 WBC 17.2 H Hgb 8.6 L Hct 28.5 L Plt Count 454 H Sodium Potassium Chloride Carbon Dioxide BUN Creatinine Glucose Calcium Magnesium Total Bilirubin AST ALT Alkaline Phosphatase Troponin I 0.04 H* 0.07 H* 11/06/17 02:57 WBC Hgb Hct Plt Count Sodium 139 Potassium 4.0 Chloride 101 Carbon Dioxide 34 H BUN 17 Creatinine 0.97 Glucose 88 Calcium 8.7 Magnesium 1.9 Total Bilirubin 0.3 AST 16 ALT 27 Alkaline Phosphatase 73 Troponin I Consult Discharge Plan - Plan Referrals: Eleazar Kee, [employer] [Primary Care Provider] - <Leonard Mir - Last Filed: 11/07/17 09:22> Date of Encounter: 11/06/17 Time of Encounter: 14:00 - Attending Attestation I examined this patient and my medical decision-making was reviewed with the Resident Physician. I agree with the documented findings, disposition and treatment plan as described except to the extent set forth below. IMP: 1: Chest Pain: pt reports chest pain right sided, at sight of surgical incision , 9/10 at most severe, worse with cough and deep inspiration, is improved but not resolved with [place], feels he needs stronger pain medication. He reports chest pain is not associated with nausea, diaphoresis or shortness of breath. Chest pain is musculoskeletal. 2. CAD: severe three vessel CAD, post CABG 2013, previous hx silent ischemia, CAD evaluation undertaken for abnormal EKG, exercise tolerance before ruptured bleb/surgical intervention was excellent. 3. Elevated troponin: minimal elevation, trending down, no new EKG changes, echo shows normal wall motion, no new segmental abnormalites to suggest ischemic event, most consistent with demand ischemia 4. Chronic A fib, ventricular rate controlled, on Eliquis for primary stroke risk reduction and recent bilateral DVT 5. Lower ext edema: mild, improving, bilat lower ext dopplers negative for new DVT, may benefit from compression stockings 6. Pneumothorax: post ruptured bleb with surgical repair, has chest tube with Heimlich valve in place, very painful at surgical site, CTS managing. Assessment and Plan Discussion w patient/family: The assessment and plan as outlined above was discussed with the patient and/or family members who expressed understanding and agreement. All questions were answered. Thank you for involving us in the care of your patient. Please call with any questions. History of Present Illness History of present illness: Mr. Johnson is a 62 year old male All Systems Review: A 10-system review of systems was performed and is negative for pertinent findings except as documented above in the HPI. Physical Examination Vital Signs, Last 4 Hours Temp Pulse Resp BP Pulse Ox 11/06/17 11:38 98.8 F 61 17 102/51 94 Results 11/07/17 04:50 11/07/17 04:50 Lab Results 11/05/17 11/06/17 11/06/17 22:43 02:57 02:57 WBC 17.2 H Hgb 8.6 L Hct 28.5 L Plt Count 454 H Sodium Potassium Chloride Carbon Dioxide BUN Creatinine Glucose Calcium Magnesium Total Bilirubin AST ALT Alkaline Phosphatase Troponin I 0.04 H* 0.07 H* 11/06/17 02:57 WBC Hgb Hct Plt Count Sodium 139 Potassium 4.0 Chloride 101 Carbon Dioxide 34 H BUN 17 Creatinine 0.97 Glucose 88 Calcium 8.7 Magnesium 1.9 Total Bilirubin 0.3 AST 16 ALT 27 Alkaline Phosphatase 73 Troponin I
--- NOTE | 2017-11-06 10:21 | Internal Med Progress Note ---
Date of Encounter: 11/06/17 Time of Encounter: 08:15 - Assessment and plan (1) Chest heaviness Current Visit: Yes Status: Acute Assessment and plan: that started day of presentation. Troponin peaked at 0.07, EKG without acute ST changes. CXR with unchanged right pneumothorax, increasing right pleural fluid and overall improved right-sided airspace disease. Chest CTA negative for pulmonary embolism. History of CAD with CABG in 2013. Continue home Bryce [employer]LLER [employer]. Cardiology consulted (2) Spontaneous pneumothorax Current Visit: No Status: Acute Assessment and plan: Presented with shortness of breath on 10/04/17 admission; CXR showed spontaneous right-sided pneumothorax. He underwent multiple chest tube placement was pneumothorax recurrence/increase in size. Recently underwent a right thoracotomy with multiple stabling of apical blebs and mechanical pleurodesis/chemical pleurodesis on 10/29/2017 per CTS. He was discharged home on 11/01/2017 with right sided Heimlich valve. 11/05/17 chest CTA with improvement in bilateral lobe consolidation, small, moderate sized hydropneumothorax to her lower chest. Hemodynamically stable, adequately saturating on NC. CTS consulted. (3) MRSA bacteremia Current Visit: Yes Status: Acute Assessment and plan: 2/ blood cultures positive for MRSA 10/24/2017; sensitive to vancomycin. The blood cultures 10/25- no growth. 10/30 for 17 TTE with no evidence of vegetation, endocarditis. WBC 17 K, trending down. Continue IV vancomycin (4) DVT (deep venous thrombosis) Current Visit: Yes Status: Acute Assessment and plan: 10/24/2017 bilateral venous Dopplers with acute DVT to bilateral lower extremities. Continue home Bryce Qualifiers: DVT location: lower extremity Affected thrombotic vein of extremity: unspecified vein of extremity Chronicity: chronic Laterality: left Qualified Code(s): I82.502 - Chronic embolism and thrombosis of unspecified deep veins of left lower extremity (5) Atrial fibrillation Current Visit: No Status: Chronic Assessment and plan: per hx. Rate controlled. Cont home Bryce HODGE Qualifiers: Atrial fibrillation type: chronic Qualified Code(s): I48.2 - Chronic atrial fibrillation (6) CAD (coronary artery disease) Current Visit: No Status: Chronic Assessment and plan: hx CABG in 2013; with chest heaviness as noted above. Workup as noted above. Qualifiers: Coronary Disease-Associated Artery/Lesion type: [place] artery Teller vs. transplanted heart: [place] heart Associated angina: without angina Qualified Code(s): I25.10 - Atherosclerotic heart disease of [place] coronary artery without angina pectoris (7) COPD (chronic obstructive pulmonary disease) Current Visit: No Status: Chronic Assessment and plan: per hx. No evidence of COPD exacerbation. Continue home inhalers. Qualifiers: COPD type: unspecified COPD Qualified Code(s): J44.9 - Chronic obstructive pulmonary disease, unspecified (8) DVT prophylaxis Current Visit: No Status: Acute Assessment and plan: elquis - Time Spent With Patient 25 - 35 minutes - Subjective Interval history: Seen and examined at bedside. Patient is new to me, information obtained from chart review and patient report. Still with intermittent chest discomfort and shortness of breath that source with deep inspiration and activity. Patient states he is not sure if chest pressure coming from heart, he thinks possibly secondary to chest tube. He does report pain at chest tube insertion site; not controlled with Percocet and PRN Dilaudid. Patient requesting home milk so and when necessary IV morphine be resumed. Discussed his elevated troponin with him and his and both would like to discuss with cardiology and cardiothoracic surgery before deciding on stress test. - Constitutional Vitals: Temp Pulse Resp BP Pulse Ox 98.7 F 68 16 130/76 93 11/06/17 06:51 11/06/17 06:51 11/06/17 07:48 11/06/17 06:51 11/06/17 07:48 Internal Medicine: Result - Labs CBC & Chem 7: 11/06/17 02:57 11/06/17 02:57 Labs: Short CBC 11/06/17 Range/Units 02:57 WBC 17.2 H (4.3-11.1) K/mcL Hgb 8.6 L (12.9-16.9) g/dL Hct 28.5 L (37.5-50.1) % Plt Count 454 H (140-400) K/mcL Neutrophils # 13.2 H (1.6-8.9) K/mcL BMP 11/06/17 02:57 Sodium 139 Potassium 4.0 Chloride 101 Carbon Dioxide 34 H BUN 17 Creatinine 0.97 Glucose 88 Calcium 8.7 Cardiac Enzymes 11/05/17 11/06/17 Range/Units 22:43 02:57 Troponin I 0.04 H* 0.07 H* (< 0.04) ng/mL Liver Function 11/06/17 Range/Units 02:57 Total Bilirubin 0.3 (0.3-1.0) mg/dL AST 16 (13-39) Units/L ALT 27 (7-52) Units/L Alkaline Phosphatase 73 (34-104) Units/L Albumin 2.9 L (3.5-5.7) g/dL - ABG Interpretation ABG results: PT/INR, D-dimer PT 16.2 Seconds (9.4-12.1) H 11/05/17 15:45 Consult Discharge Plan - Plan Referrals: Eleazar Kee, CANDE [Primary Care Provider] -
[2017-11-06] MEDS: *HR* Morphine 2 MG/ML SYRINGE IVP PRN ×3 (11:19→19:30)
[2017-11-06] MEDS: Vancomycin 1,250 MG in D5% in Water 250 ML IVPB SCH ×2 (11:55→22:16)
[2017-11-06] MEDS: *HR* HYDROcodone/Acet 10/325 mg TABLET PO PRN ×3 (13:32→22:16)
--- NOTE | 2017-11-06 14:19 | Cardiothoracic Consult Note ---
Date of Encounter: 11/06/17 Time of Encounter: 14:16 Assessment and Plan (1) Acute and chronic respiratory failure with hypoxia Current Visit: No Status: Chronic The assessment and plan as outlined above was discussed with the patient and/or family members who expressed understanding and agreement. All questions were answered. The patient has a right chest tube with a Heimlich valve. Chest x-ray done yesterday reveals a small basilar pneumothorax on the right which is the same or improved since discharge. I will see the patient in the office on November 20 and remove the Heimlich valve and chest tube. His peripheral edema responded rapidly to IV Lasix. He is being seen by cardiology for a positive troponin. Pain control is an issue as he was on chronic narcotics for lower back pain. - History of Present Illness Consult date: 11/06/17 History of present illness: Mr. Johnson is a 62 year old male The patient is a 62-year-old gentleman who underwent open heart surgery in 2013. He does have a history of smoking and severe COPD. He used 3 L of oxygen by nasal prong prior to his recent admissions. He was admitted with a right spontaneous pneumothorax. He had insertion of a chest tube. However, the air leak would not stop despite waiting almost 2 weeks. I did take him to the operating room and performed a right thoracotomy with stapling of several large blebs. He also had pleurodesis, both mechanical and with talc. He had an air leak after the surgery and went home with a Heimlich valve. He continued to use 3 L of oxygen by nasal prong. He was admitted yesterday with ankle swelling. This is responded quickly to IV diuresis. He also has an elevated troponin of 0.07 and is being seen by cardiology. Chest x-ray done yesterday revealed a small basilar pneumothorax that is unchanged or improved since his discharge. Past Med Surg Social Fam HX - Past Medical History Medical history: asthma, atrial fibrillation, cardiomyopathy, CHF, COPD, coronary artery disease, hyperlipidemia, hypertension Psychiatric history: anxiety - Past Surgical History Surgical History: coronary bypass (CABG), herniorrhaphy, other - Social History Smoking Status: Former smoker Smokeless Tobacco Status: No Alcohol use: none Drug use: none - Family History Mother Living Status: Cause of : natural Hx Family Cardiac Disorders: No Hx Family Respiratory Disorders: No Hx Family Cancer: No Hx Family GI Disorders: No Hx Family Genitourinary Disorders: No Hx Family Endocrine Disorder: No Hx Family Musculoskeletal Disorders: No Hx Family Neuromuscular Disorders: No Hx Family Neurologic Disorders: No Hx Family HEENT Disorders: No Hx Family Autoimmune Disorders: No Hx Family Reproductive Disorders: No Hx Family Psychosocial Disorders: No Hx Family Medical Disorders: No Father Living Status: Cause of : cirrhois of liver Hx Family Cardiac Disorders: No Hx Family Respiratory Disorders: No Hx Family Cancer: No Hx Family GI Disorders: No Hx Family Genitourinary Disorders: No Hx Family Endocrine Disorder: No Hx Family Musculoskeletal Disorders: No Hx Family Neuromuscular Disorders: No Hx Family Neurologic Disorders: No Hx Family HEENT Disorders: No Hx Family Autoimmune Disorders: No Hx Family Reproductive Disorders: No Hx Family Psychosocial Disorders: No Hx Family Medical Disorders: No Medications and Allergies Aspirin [Adult Low Dose Aspirin EC] 81 mg PO DAILY 02/02/16 [History] Atorvastatin Calcium [Lipitor] 80 mg PO DAILY 02/02/16 [History] Nitroglycerin [Nitrostat] 0.4 mg SL AD PRN 07/30/16 [History] Amiodarone [Cordarone] 200 mg PO DAILY 04/22/17 [History] Budesonide/Formoterol 80/4.5 [Symbicort 80/4.5] 2 puff IH BID 10/05/17 [History ] Calcium Polycarbophil [Fibercon] 625 mg PO BID PRN 10/05/17 [History] Ipratropium/Albuterol Neb [Duoneb] 3 ml IH QID 10/05/17 [History] Lisinopril [Zestril] 20 mg PO DAILY 10/05/17 [History] Metoprolol [Lopressor] 12.5 mg PO BID 10/05/17 [History] Apixaban [Eliquis] 10 mg PO BID #20 tablet 11/01/17 [Rx] HYDROcodone/Acet 10/325 mg [[place] 10-325 mg] 1 tab PO Q4HR 5 Days #30 tablet [Rx] Lactulose 20 gm PO DAILY PRN #30 udc 11/01/17 [Rx] Furosemide [Lasix] 40 mg PO BID 11/06/17 [History] 3 Allergy/AdvReac Type Severity Reaction Status Date / Time No Known Allergies Allergy Verified 11/06/17 11:37 All Systems Review: A 10-system review of systems was performed and is negative for pertinent findings except as documented above in the HPI. Physical Examination Vital Signs, Last 4 Hours Temp Pulse Resp BP Pulse Ox 11/06/17 11:38 98.8 F 61 17 102/51 94 Lungs are clear to percussion and auscultation. Heart is in a irregular rate and rhythm. His Heimlich valve does not appear to have an air leak and has minimal drainage. Chest x-ray reveals a small basilar right pneumothorax. This may be a pneumothorax or may be a space problem. Results 11/06/17 02:57 11/06/17 02:57 Lab Results, Last 24 hours 11/05/17 11/06/17 11/06/17 22:43 02:57 02:57 WBC 17.2 H Hgb 8.6 L Hct 28.5 L Plt Count 454 H Sodium Potassium Chloride Carbon Dioxide BUN Creatinine Glucose Calcium Magnesium Total Bilirubin AST ALT Alkaline Phosphatase Troponin I 0.04 H* 0.07 H* 11/06/17 02:57 WBC Hgb Hct Plt Count Sodium 139 Potassium 4.0 Chloride 101 Carbon Dioxide 34 H BUN 17 Creatinine 0.97 Glucose 88 Calcium 8.7 Magnesium 1.9 Total Bilirubin 0.3 AST 16 ALT 27 Alkaline Phosphatase 73 Troponin I Consult Discharge Plan - Plan Referrals: Eleazar Kee CNP [Primary Care Provider] -
--- NOTE | 2017-11-06 16:50 | Electrocardiograph Report ---
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
[2017-11-06] MEDS ORDERED: Apixaban 5 MG TABLET PO ONE (21:36)
[2017-11-07] MEDS: *HR* Morphine 2 MG/ML SYRINGE IVP PRN ×2 (01:35→07:57)
[2017-11-07] MEDS: *HR* HYDROcodone/Acet 10/325 mg TABLET PO PRN ×3 (05:06→16:33)
[2017-11-07 05:08] LABS: Hematocrit 25.1 % (37.5-50.1); Hemoglobin 7.9 g/dL (12.9-16.9); Mean Corpuscular HGB Conc 31.5 g/dL (31.6-35.5); Mean Corpuscular Hemoglobin 27.6 pg (28.0-33.3); Mean Corpuscular Volume 87.8 fL (83.0-100.0); Mean Platelet Volume 9.8 fL (9.4-12.4); Platelet Count 383 K/mcL (140-400); Red Blood Count 2.86 M/mcL (4.19-5.50); Red Cell Distribution Width 16.4 % (11.5-14.5)
[2017-11-07 05:18] LABS: BUN/Creatinine Ratio 22 (6-26); Blood Urea Nitrogen 16 mg/dL (8-23); Calcium 8.5 mg/dL (8.6-10.3); Carbon Dioxide 31 mEq/L (23-29); Chloride 103 mEq/L (98-107); Glucose 83 mg/dL (70-105); Osmolality,Calculated 286 (280-300); Potassium 4.2 mEq/L (3.5-5.1); Sodium 138 mEq/L (136-145); eGFR For African Americans > 60 (> 60); eGFR For Non-African Americans > 60 (> 60)
--- NOTE | 2017-11-07 06:55 | Cardiothoracic Progress Note ---
Date of Encounter: 11/07/17 Time of Encounter: 06:53 - Assessment and plan (1) Acute and chronic respiratory failure with hypoxia Current Visit: No Status: Chronic The patient is okay for discharge from my standpoint. This can be done once his cardiac workup is complete. I will see the patient in the office on November 20 and remove the chest tube and Heimlich valve. I will sign off. Please call if needed. - Subjective Interval history: The patient is ambulating in the hallways and has no complaints. Vital Signs, Last 4 Hours Temp Pulse Resp BP Pulse Ox 11/07/17 03:48 98.9 F 63 17 135/66 94 Oxgyen Flow Rate Oxygen Flow Rate (LPM) 2 Weight 11/05/17 11/06/17 11/07/17 23:59 23:59 23:59 Weight 77.111 kg 77.973 kg Lungs are clear to percussion and auscultation. Heart is in a regular rate and rhythm. All incisions are healing well without signs of infection. The chest tube and Heimlich valve have minimal drainage and no discernible air leak. Chest x-ray reveals a small basilar pneumothorax which is stable to improved since his last discharge. - Labs 11/07/17 04:50 11/07/17 04:50 Lab Results, Last 24 hours 11/06/17 11/07/17 11/07/17 22:45 04:50 04:50 WBC 14.9 H Hgb 7.9 L Hct 25.1 L Plt Count 383 Sodium 138 Potassium 4.2 Chloride 103 Carbon Dioxide 31 H BUN 16 Creatinine 0.73 Glucose 83 Calcium 8.5 L Troponin I 0.04 H* 11/07/17 04:50 WBC Hgb Hct Plt Count Sodium Potassium Chloride Carbon Dioxide BUN Creatinine Glucose Calcium Troponin I 0.04 H* Consult Discharge Plan - Plan Referrals: Eleazar Kee, [employer] [Primary Care Provider] -
[2017-11-07] MEDS: Apixaban 5 MG TABLET PO SCH (07:57)
[2017-11-07] MEDS: Aspirin Enteric Coated 81 MG Tablet PO SCH (07:57)
[2017-11-07] MEDS: Budesonide/Formoterol 80/4.5 MDI IH SCH (08:15)
--- NOTE | 2017-11-07 10:06 | Pain Management Consultation ---
Date of Encounter: 11/08/17 Time of Encounter: 15:32 Assessment and Plan (1) Back pain Status: Chronic The patient left before being seen. Qualifiers: Back pain location: low back pain Chronicity: chronic Back pain laterality: bilateral Sciatica presence: unspecified whether sciatica present Qualified Code(s): M54.5 - Low back pain; G89.29 - Other chronic pain; G89.29 - Other chronic pain History of Present Illness Chief complaint: back pain HPI: Mr. Johnson is a 62 year old male. The patient left before being seen. Past Med Surg Social Fam HX - Past Medical History Medical history: asthma, atrial fibrillation, cardiomyopathy, CHF, COPD, coronary artery disease, hyperlipidemia, hypertension Psychiatric history: anxiety - Past Surgical History Surgical History: coronary bypass (CABG), herniorrhaphy, other - Social History Smoking Status: Former smoker Smokeless Tobacco Status: No Alcohol use: none Drug use: none - Family History Mother Living Status: Cause of : natural Hx Family Cardiac Disorders: No Hx Family Respiratory Disorders: No Hx Family Cancer: No Hx Family GI Disorders: No Hx Family Genitourinary Disorders: No Hx Family Endocrine Disorder: No Hx Family Musculoskeletal Disorders: No Hx Family Neuromuscular Disorders: No Hx Family Neurologic Disorders: No Hx Family HEENT Disorders: No Hx Family Autoimmune Disorders: No Hx Family Reproductive Disorders: No Hx Family Psychosocial Disorders: No Hx Family Medical Disorders: No Father Living Status: Cause of : cirrhois of liver Hx Family Cardiac Disorders: No Hx Family Respiratory Disorders: No Hx Family Cancer: No Hx Family GI Disorders: No Hx Family Genitourinary Disorders: No Hx Family Endocrine Disorder: No Hx Family Musculoskeletal Disorders: No Hx Family Neuromuscular Disorders: No Hx Family Neurologic Disorders: No Hx Family HEENT Disorders: No Hx Family Autoimmune Disorders: No Hx Family Reproductive Disorders: No Hx Family Psychosocial Disorders: No Hx Family Medical Disorders: No Medications and Allergies Aspirin [Adult Low Dose Aspirin EC] 81 mg PO DAILY 02/02/16 [History] Atorvastatin Calcium [Lipitor] 80 mg PO DAILY 02/02/16 [History] Nitroglycerin [Nitrostat] 0.4 mg SL AD PRN 07/30/16 [History] Amiodarone [Cordarone] 200 mg PO DAILY 04/22/17 [History] Budesonide/Formoterol 80/4.5 [Symbicort 80/4.5] 2 puff IH BID 10/05/17 [History ] Calcium Polycarbophil [Fibercon] 625 mg PO BID PRN 10/05/17 [History] Ipratropium/Albuterol Neb [Duoneb] 3 ml IH QID 10/05/17 [History] Lisinopril [Zestril] 20 mg PO DAILY 10/05/17 [History] Metoprolol [Lopressor] 12.5 mg PO BID 10/05/17 [History] Apixaban [Eliquis] 10 mg PO BID #20 tablet 11/01/17 [Rx] Lactulose 20 gm PO DAILY PRN #30 udc 11/01/17 [Rx] Furosemide [Lasix] 40 mg PO BID 11/06/17 [History] HYDROcodone/Acet 10/325 mg [[place] 10-325 mg] 2 tab PO Q4HR PRN 7 Days #84 tablet 11/07/17 [Rx] 3 Allergy/AdvReac Type Severity Reaction Status Date / Time No Known Allergies Allergy Verified 11/06/17 11:37 Physical Exam Initial Vital Signs Temp Pulse Resp BP Pulse Ox 98.2 F 80 18 111/64 94 11/05/17 15:26 11/05/17 15:26 11/05/17 15:26 11/05/17 15:26 11/05/17 15:26 Results - Labs 11/07/17 15:38 11/07/17 04:50 Abnormal lab results WBC 14.9 K/mcL (4.3-11.1) H 11/07/17 04:50 RBC 2.86 M/mcL (4.19-5.50) L 11/07/17 04:50 Hgb 7.9 g/dL (12.9-16.9) L 11/07/17 04:50 Hct 25.1 % (37.5-50.1) L 11/07/17 04:50 MCH 27.6 pg (28.0-33.3) L 11/07/17 04:50 MCHC 31.5 g/dL (31.6-35.5) L 11/07/17 04:50 RDW 16.4 % (11.5-14.5) H 11/07/17 04:50 Neutrophils # 13.2 K/mcL (1.6-8.9) H 11/06/17 02:57 Monocytes # 1.8 K/mcL (0.0-1.3) H 11/06/17 02:57 Eosinophils # 0.7 K/mcL (0.0-0.6) H 11/06/17 02:57 PT 16.2 Seconds (9.4-12.1) H 11/05/17 15:45 Carbon Dioxide 31 mEq/L (23-29) H 11/07/17 04:50 Calcium 8.5 mg/dL (8.6-10.3) L 11/07/17 04:50 Troponin I 0.04 ng/mL (< 0.04) H* 11/07/17 04:50 Serum Total Protein 6.2 g/dL (6.4-8.9) L 11/06/17 02:57 Albumin 2.9 g/dL (3.5-5.7) L 11/06/17 02:57 Albumin/Globulin Ratio 0.9 (1.1-2.2) L 11/06/17 02:57 Ur Specific [place] > 1.030 (1.010-1.025) H 11/05/17 16:10 Urine Microscopic RBC 5-15 per hpf (0-3) H 11/05/17 16:10 Urine Microscopic WBC 3-5 per hpf (0-3) H 11/05/17 16:10 Ur Squamous Epith Cells Moderate per lpf (None-Few) H 11/05/17 16:10 Diabetes panel 11/07/17 Range/Units 04:50 Sodium 138 (136-145) mEq/L Potassium 4.2 (3.5-5.1) mEq/L Chloride 103 (98-107) mEq/L Carbon Dioxide 31 H (23-29) mEq/L BUN 16 (8-23) mg/dL Creatinine 0.73 (0.70-1.30) mg/dL Glucose 83 (70-105) mg/dL Calcium 8.5 L (8.6-10.3) mg/dL Calcium panel 11/07/17 Range/Units 04:50 Calcium 8.5 L (8.6-10.3) mg/dL Pituitary panel 11/07/17 Range/Units 04:50 Sodium 138 (136-145) mEq/L Potassium 4.2 (3.5-5.1) mEq/L Chloride 103 (98-107) mEq/L Carbon Dioxide 31 H (23-29) mEq/L BUN 16 (8-23) mg/dL Creatinine 0.73 (0.70-1.30) mg/dL Glucose 83 (70-105) mg/dL Calcium 8.5 L (8.6-10.3) mg/dL Adrenal panel 11/07/17 Range/Units 04:50 Sodium 138 (136-145) mEq/L Potassium 4.2 (3.5-5.1) mEq/L Chloride 103 (98-107) mEq/L Carbon Dioxide 31 H (23-29) mEq/L BUN 16 (8-23) mg/dL Creatinine 0.73 (0.70-1.30) mg/dL Glucose 83 (70-105) mg/dL Calcium 8.5 L (8.6-10.3) mg/dL All other labs normal. Consult Discharge Plan - Plan Instructions: Hydrocodone/Acetaminophen (By mouth), Chest Tubes (DC), Anemia ( DC) Additional Instructions: Follow-up appointments: If there is not an appointment listed below, please call your physician and schedule a follow-up appointment. If you have congestive heart failure and your symptoms return, make an appointment with your physician. Medication List: Carry an up to date list of medications you are taking at all time. We have given you an updated medication list including any new medications that you have been prescribed. Please provide that list to your primary provider Symptoms: If your condition changes or you experience any of the following symptoms, notify your physician immediately: Unusual or worsening pain, fever, persistent nausea and vomiting, bleeding, increase in swelling (especially in your legs), sudden weight gain, extreme dizziness, chest pain, increased drainage or redness from a wound or incision. Go to the emergency department if you experience a problem with breathing. Weights: If you have a history of swelling or shortness of breath, weigh yourself daily and notify your physician if you have a weight gain of two or more pounds in one day or 5 or more pounds in a week. If you experience any of the warning signs for stroke: Sudden numbness or weakness of the face, arm or leg; especially on one side of the body, sudden confusion, trouble speaking or understanding, sudden trouble seeing in one or both eyes, sudden trouble walking, dizziness, loss of balance or coordination, sudden sever headache with no cause; Call 911 or go to the emergency room. Stroke is a medical emergency. Some risk factors for stroke: Age, cigarette smoking, diabetes, excessive alcohol consumption, family history , high blood pressure, overweight, physical inactivity, prior stroke, heart attack, diagnosis of carotid artery stenosis or other artery disease. If you smoke, STOP: Smoking or tobacco use significantly increases your risk of heart and lung disease. Your chance of disease greatly increases if you continue to smoke. For more information, call the [place] tobacco quit line for smoking cessation QUIT-NOW ( ) Referrals: Eleazar Kee CNP [Primary Care Provider] - Mansoor Cobos MD [Partnered Physician] - 11/20/17 1:00 pm Rudolph Mesa MD [Partnered Physician] - Prescriptions: HYDROcodone/Acet 10/325 mg [[place] 10-325 mg] 2 tab PO Q4HR PRN 7 Days #84 tablet PRN Reason: Pain
[2017-11-07] MEDS ORDERED: 0.9 % Sodium Chloride 250 ML ONE (10:30)
--- NOTE | 2017-11-07 10:42 | Cardiology Progress Note ---
<Naeem Ramírez - Last Filed: 11/07/17 12:59> Date of Encounter: 11/07/17 Time of Encounter: 10:45 Assessment and Plan (1) Chest pain Status: Acute Presented to the hospital with chest heaviness. No significant EKG changes; CTA and CXR were unremarkable. Troponin elevated on presentation at 0.04; has since increased to 0.07. Known history of CAD s/p CABG in 2013. Last echo on 10/31/17 demonstrated the following (performed due to bacteremia): -LVEF 60%. -Mild concentric LVH. -Abnormal (paradoxical) motion consistent with post-operative status. -Mild MR. Repeat ECHO unremarkable. Plan: -Continuous cardiac monitoring. -ASA 81 mg PO daily -Nitroglycerin 0.4 mg SL PRN Qualifiers: Chest pain type: unspecified Qualified Code(s): R07.9 - Chest pain, unspecified (2) Hypertension Status: Chronic Patient has a known history of hypertension. Currently well-controlled at 135/73. Plan: -Lisinopril 10 mg PO BID -Metoprolol 12.5 mg PO BID -Patient has been on amlodipine x 6 months, which has been held. Qualifiers: Hypertension type: essential hypertension Qualified Code(s): I10 - Essential (primary) hypertension (3) Atrial fibrillation Status: Chronic Patient has a known history of atrial fibrillation. Currently rate controlled at 64 beats per minute. Plan: -Eliquis 5mg PO BID Qualifiers: Atrial fibrillation type: chronic Qualified Code(s): I48.2 - Chronic atrial fibrillation (4) Elevated troponin Status: Acute Troponin was elevated on presentation at 0.04. Troponin levels have been as follows: 0.04, 0.04, 0.07, 0.04, 0.04 Discussion w patient/family: The assessment and plan as outlined above was discussed with the patient and/or family members who expressed understanding and agreement. All questions were answered. Thank you for involving us in the care of your patient. Please call with any questions. Subjective Interval history: Patient was seen and examined at bedside this morning. He states that he is feeling well today. Still feels some pain in his chest wall on the right where the tube was placed. Denies any new chest pain or shortness of breath. Reports that the swelling in his legs has gradually decreased. He is resting comfortably in bed and has no complaints at this time. Likely discharge soon. Objective Vital Signs, Last 4 Hours Temp Pulse Resp BP Pulse Ox 11/07/17 08:16 18 94 11/07/17 07:00 98.9 F 64 18 135/73 95 General: Conversant, No Apparent Distress HEENT: Atraumatic, Normocephaly, Mucus Membranes Moist Neck: No JVD, Normal carotid pulses Lungs: Normal Breath Sounds, No Wheeze, Rales, Rhonchi Skin: No rashes noted on visualized skin Extremities: No Clubbing, No Cyanosis, Normal Pulses Results 11/07/17 04:50 11/07/17 04:50 Lab Results 11/06/17 11/07/17 11/07/17 22:45 04:50 04:50 WBC 14.9 H Hgb 7.9 L Hct 25.1 L Plt Count 383 Sodium 138 Potassium 4.2 Chloride 103 Carbon Dioxide 31 H BUN 16 Creatinine 0.73 Glucose 83 Calcium 8.5 L Troponin I 0.04 H* 11/07/17 04:50 WBC Hgb Hct Plt Count Sodium Potassium Chloride Carbon Dioxide BUN Creatinine Glucose Calcium Troponin I 0.04 H* Consult Discharge Plan - Plan Instructions: Hydrocodone/Acetaminophen (By mouth), Chest Tubes (DC), Anemia ( DC) Additional Instructions: Follow-up appointments: If there is not an appointment listed below, please call your physician and schedule a follow-up appointment. If you have congestive heart failure and your symptoms return, make an appointment with your physician. Medication List: Carry an up to date list of medications you are taking at all time. We have given you an updated medication list including any new medications that you have been prescribed. Please provide that list to your primary provider Symptoms: If your condition changes or you experience any of the following symptoms, notify your physician immediately: Unusual or worsening pain, fever, persistent nausea and vomiting, bleeding, increase in swelling (especially in your legs), sudden weight gain, extreme dizziness, chest pain, increased drainage or redness from a wound or incision. Go to the emergency department if you experience a problem with breathing. Weights: If you have a history of swelling or shortness of breath, weigh yourself daily and notify your physician if you have a weight gain of two or more pounds in one day or 5 or more pounds in a week. If you experience any of the warning signs for stroke: Sudden numbness or weakness of the face, arm or leg; especially on one side of the body, sudden confusion, trouble speaking or understanding, sudden trouble seeing in one or both eyes, sudden trouble walking, dizziness, loss of balance or coordination, sudden sever headache with no cause; Call 911 or go to the emergency room. Stroke is a medical emergency. Some risk factors for stroke: Age, cigarette smoking, diabetes, excessive alcohol consumption, family history , high blood pressure, overweight, physical inactivity, prior stroke, heart attack, diagnosis of carotid artery stenosis or other artery disease. If you smoke, STOP: Smoking or tobacco use significantly increases your risk of heart and lung disease. Your chance of disease greatly increases if you continue to smoke. For more information, call the [place] tobacco quit line for smoking cessation -NOW ( ) Referrals: Eleazar Kee CNP [Primary Care Provider] - Mansoor Cobos MD [Partnered Physician] - 11/20/17 1:00 pm Rudolph Mesa MD [Partnered Physician] - Prescriptions: HYDROcodone/Acet 10/325 mg [[place] 10-325 mg] 2 tab PO Q4HR PRN 7 Days #84 tablet PRN Reason: Pain <Leonard Mir - Last Filed: 11/09/17 22:15> Date of Encounter: 11/09/17 Assessment and Plan Discussion w patient/family: The assessment and plan as outlined above was discussed with the patient and/or family members who expressed understanding and agreement. All questions were answered. Thank you for involving us in the care of your patient. Please call with any questions. Results 11/07/17 15:38 11/07/17 04:50 Lab Results 11/06/17 11/07/17 11/07/17 22:45 04:50 04:50 WBC 14.9 H Hgb 7.9 L Hct 25.1 L Plt Count 383 Sodium 138 Potassium 4.2 Chloride 103 Carbon Dioxide 31 H BUN 16 Creatinine 0.73 Glucose 83 Calcium 8.5 L Troponin I 0.04 H* 11/07/17 11/07/17 04:50 15:38 WBC Hgb 8.6 L Hct 27.5 L Plt Count Sodium Potassium Chloride Carbon Dioxide BUN Creatinine Glucose Calcium Troponin I 0.04 H* - Attending Attestation I examined this patient and my medical decision-making was reviewed with the Resident Physician. I agree with the documented findings, disposition and treatment plan as described except to the extent set forth below. IMP: 1. Chest pain: musculoskeletal pain at surgical site, continue medical management 2. Hypertension; controlled on current meds. 3. A fib with controlled ventricular response, continue current meds, on Eliquis for primary stroke risk reduction 4. Elevated troponin, adynamic, due to demand ischemia,
[2017-11-07] MEDS ORDERED: Vancomycin 1,500 MG in D5% in Water 250 ML IVPB SCH (12:00)
--- NOTE | 2017-11-07 13:10 | Event Note ---
Date of Encounter: 11/07/17 Time of Encounter: 13:00 - Cardiology Event Note Discussed with Dr. Mir, cardiology signing off, re-consult PRN, f/u arranged.
--- NOTE | 2017-11-07 15:10 | Internal Med Progress Note ---
Date of Encounter: 11/07/17 Time of Encounter: 08:30 - Assessment and plan (1) Chest heaviness Current Visit: Yes Status: Acute Assessment and plan: that started day of presentation. Troponin peaked at 0.07, EKG without acute ST changes. CXR with unchanged right pneumothorax, increasing right pleural fluid and overall improved right-sided airspace disease. Chest CTA negative for pulmonary embolism. History of CAD with CABG in 2013. Evaluated by Cardiology who did not feel further cardiac testing warranted at this time. Continue home Bryce HELLER BB. Follow-up with Cardiology outpatient (2) Spontaneous pneumothorax Current Visit: No Status: Acute Assessment and plan: Presented with shortness of breath on 10/04/17 admission; CXR showed spontaneous right-sided pneumothorax. He underwent multiple chest tube placement was pneumothorax recurrence/increase in size. Recently underwent a right thoracotomy with multiple stabling of apical blebs and mechanical pleurodesis/chemical pleurodesis on 10/29/2017 per CTS. He was discharged home on 11/01/2017 with right sided Heimlich valve. 11/05/17 chest CTA with improvement in bilateral lobe consolidation, small, moderate sized hydropneumothorax to her lower chest. Hemodynamically stable, adequately saturating on NC. Evaluated by Dr. Cobos (CTS) who noted no acute CTS intervention required. Has follow-up planned for 11/20/17 for chest tube and Heimlich valve removal. (3) MRSA bacteremia Current Visit: Yes Status: Acute Assessment and plan: 2/2 blood cultures positive for MRSA 10/24/2017; sensitive to vancomycin. Repeat blood cultures 10/25/17 no growth. 10/30/17 TTE with no evidence of vegetation, endocarditis. WBC 17 K, trending down. Continue IV vancomycin outpatient as previously scheduled. (4) DVT (deep venous thrombosis) Current Visit: Yes Status: Acute Assessment and plan: 10/24/2017 bilateral venous Dopplers with acute DVT to bilateral lower extremities. Continue home Bryce Qualifiers: DVT location: lower extremity Affected thrombotic vein of extremity: unspecified vein of extremity Chronicity: chronic Laterality: left Qualified Code(s): I82.502 - Chronic embolism and thrombosis of unspecified deep veins of left lower extremity (5) Atrial fibrillation Current Visit: No Status: Chronic Assessment and plan: per hx. Rate controlled. Cont home BB, Eliquis Qualifiers: Atrial fibrillation type: chronic Qualified Code(s): I48.2 - Chronic atrial fibrillation (6) CAD (coronary artery disease) Current Visit: No Status: Chronic Assessment and plan: hx CABG in 2013; with chest heaviness as noted above. Plan as noted under #1 Qualifiers: Coronary Disease-Associated Artery/Lesion type: [place] artery [place] vs. transplanted heart: [place] heart Associated angina: without angina Qualified Code(s): I25.10 - Atherosclerotic heart disease of [place] coronary artery without angina pectoris (7) COPD (chronic obstructive pulmonary disease) Current Visit: No Status: Chronic Assessment and plan: per hx. No evidence of COPD exacerbation. Continue home inhalers. Qualifiers: COPD type: unspecified COPD Qualified Code(s): J44.9 - Chronic obstructive pulmonary disease, unspecified (8) Anemia Current Visit: No Status: Acute Assessment and plan: Hgb baseline appears to be between 8-9. Hgb dropped to 7.9 on 11/07/17; no active bleeding. Suspect multifactorial with iron deficiency anemia and iatrogenic with multiple blood draws. Received 1 unit PRBC Qualifiers: Anemia type: iron deficiency Iron deficiency anemia type: chronic blood loss Qualified Code(s): D50.0 - Iron deficiency anemia secondary to blood loss (chronic) (9) Acute exacerbation of chronic low back pain Current Visit: Yes Status: Acute Assessment and plan: Has chronic low back pain and on [place] at home. Now with acute on chronic pain secondary to prolonged hospitalization with likely myopathy compounded with acute pain from multiple chest tubes. Initially required IV morphine to assist with pain control. Pain now controlled with increasing home [place]. We will provide Rx for located bridge to PCP appointment next week. - Time Spent With Patient less than 15 minutes - Subjective Interval history: Seen and examined at bedside. Patient says he feels significantly better and would like to discharge home if able. He is agreeable to blood transfusion with repeating H&H later this afternoon. Okay to discharge home if hemoglobin greater than 8. He is uncertain about going home and pain being controlled. He is still requiring IV morphine for pain control. He is agreeable to increase home pain medication 2 tablets every 4 hours as needed. Pain management consult as well. - Constitutional Vitals: Temp Pulse Resp BP Pulse Ox 98.4 F 60 16 119/70 93 11/07/17 11:20 11/07/17 11:20 11/07/17 11:20 11/07/17 11:20 11/07/17 11:20 General appearance: Present: A&O X 3 - Head Head exam: Present: atraumatic, normocephalic - Eye Eye exam: Present: PERRL, conjuntiva pink, sclera anicteric Pupils: Present: PERRL - Neck Neck exam general surgery: Present: supple, trachea midline. Absent: lymphadenopathy - Respiratory Respiratory exam: Present: CTAB. Absent: accessory muscle use, rales, rhonchi, wheezes Additional comments: right upper chest tube - Cardiovascular Cardiovascular exam: Present: RRR, +S1, +S2. Absent: diastolic murmur, gallop, rubs, systolic murmur - GI/Abdominal GI/Abdominal exam: Present: normal bowel sounds, soft, no peritoneal signs. Absent: distended, tenderness - Extremities Exam Extremities exam: Present: warm, radial pulses palpable and symmetrical. Absent : calf tenderness, cyanotic, pedal edema - Neurological Exam Neurological exam: Present: CN II-XII intact, oriented X3, no focal deficits. Absent: pronater drift, facial droop, speech deficit - Skin Skin exam: Present: dry, intact Internal Medicine: Result - Labs CBC & Chem 7: 11/07/17 04:50 11/07/17 04:50 Labs: Short CBC 11/07/17 Range/Units 04:50 WBC 14.9 H (4.3-11.1) K/mcL Hgb 7.9 L (12.9-16.9) g/dL Hct 25.1 L (37.5-50.1) % Plt Count 383 (140-400) K/mcL BMP 11/07/17 04:50 Sodium 138 Potassium 4.2 Chloride 103 Carbon Dioxide 31 H BUN 16 Creatinine 0.73 Glucose 83 Calcium 8.5 L Cardiac Enzymes 11/06/17 11/07/17 Range/Units 22:45 04:50 Troponin I 0.04 H* 0.04 H* (< 0.04) ng/mL - ABG Interpretation ABG results: PT/INR, D-dimer PT 16.2 Seconds (9.4-12.1) H 11/05/17 15:45 Consult Discharge Plan - Plan Additional Instructions: Follow-up appointments: If there is not an appointment listed below, please call your physician and schedule a follow-up appointment. If you have congestive heart failure and your symptoms return, make an appointment with your physician. Medication List: Carry an up to date list of medications you are taking at all time. We have given you an updated medication list including any new medications that you have been prescribed. Please provide that list to your primary provider Symptoms: If your condition changes or you experience any of the following symptoms, notify your physician immediately: Unusual or worsening pain, fever, persistent nausea and vomiting, bleeding, increase in swelling (especially in your legs), sudden weight gain, extreme dizziness, chest pain, increased drainage or redness from a wound or incision. Go to the emergency department if you experience a problem with breathing. Weights: If you have a history of swelling or shortness of breath, weigh yourself daily and notify your physician if you have a weight gain of two or more pounds in one day or 5 or more pounds in a week. If you experience any of the warning signs for stroke: Sudden numbness or weakness of the face, arm or leg; especially on one side of the body, sudden confusion, trouble speaking or understanding, sudden trouble seeing in one or both eyes, sudden trouble walking, dizziness, loss of balance or coordination, sudden sever headache with no cause; Call 911 or go to the emergency room. Stroke is a medical emergency. Some risk factors for stroke: Age, cigarette smoking, diabetes, excessive alcohol consumption, family history , high blood pressure, overweight, physical inactivity, prior stroke, heart attack, diagnosis of carotid artery stenosis or other artery disease. If you smoke, STOP: Smoking or tobacco use significantly increases your risk of heart and lung disease. Your chance of disease greatly increases if you continue to smoke. For more information, call the [place] tobacco quit line for smoking cessation QUIT-NOW ( ) Referrals: Eleazar Kee CNP [Primary Care Provider] - Mansoor Cobos MD [Partnered Physician] - 11/20/17 1:00 pm
--- NOTE | 2017-11-07 15:28 | Discharge Summary ---
Date of Encounter: 11/08/17 Time of Encounter: 15:26 - Discharge Diagnosis (1) Chest heaviness Priority: Primary Status: Resolved Comments: that started day of presentation. Troponin peaked at 0.07, EKG without acute ST changes. CXR with unchanged right pneumothorax, increasing right pleural fluid and overall improved right-sided airspace disease. Chest CTA negative for pulmonary embolism. History of CAD with CABG in 2013. Evaluated by Cardiology who did not feel further cardiac testing warranted at this time. Continue home Bryce [facility]. Follow-up with Cardiology outpatient (2) Spontaneous pneumothorax Priority: Primary Status: Acute Comments: Presented with shortness of breath on 10/04/17 admission; CXR showed spontaneous right-sided pneumothorax. He underwent multiple chest tube placement was pneumothorax recurrence/increase in size. Recently underwent a right thoracotomy with multiple stabling of apical blebs and mechanical pleurodesis/chemical pleurodesis on 10/29/2017 per CTS. He was discharged home on 11/01/2017 with right sided Heimlich valve. 11/05/17 chest CTA with improvement in bilateral lobe consolidation, small, moderate sized hydropneumothorax to her lower chest. Hemodynamically stable, adequately saturating on NC. Evaluated by Dr. Cobos (CTS) who noted no acute CTS intervention required. Has follow-up planned for 11/20/17 for chest tube and Heimlich valve removal. (3) MRSA bacteremia Priority: Primary Status: Acute Comments: 2/2 blood cultures positive for MRSA 10/24/2017; sensitive to vancomycin. Repeat blood cultures 10/25/17 no growth. 10/30/17 TTE with no evidence of vegetation, endocarditis. WBC 17 K, trending down. Continue IV vancomycin outpatient as previously scheduled. (4) DVT (deep venous thrombosis) Priority: Primary Status: Acute Comments: 10/24/2017 bilateral venous Dopplers with acute DVT to bilateral lower extremities. Continue home Bryce Qualifiers: DVT location: lower extremity Affected thrombotic vein of extremity: unspecified vein of extremity Chronicity: chronic Laterality: left Qualified Code(s): I82.502 - Chronic embolism and thrombosis of unspecified deep veins of left lower extremity (5) Atrial fibrillation Priority: Secondary Status: Chronic Comments: per hx. Rate controlled. Cont home Bryce HODGE Qualifiers: Atrial fibrillation type: chronic Qualified Code(s): I48.2 - Chronic atrial fibrillation (6) CAD (coronary artery disease) Priority: Primary Status: Chronic Comments: hx CABG in 2014; with chest heaviness as noted above. Plan as noted under #1 Qualifiers: Coronary Disease-Associated Artery/Lesion type: [place] artery [place] vs. transplanted heart: [place] heart Associated angina: without angina Qualified Code(s): I25.10 - Atherosclerotic heart disease of [place] coronary artery without angina pectoris (7) COPD (chronic obstructive pulmonary disease) Priority: Secondary Status: Chronic Comments: per hx. No evidence of COPD exacerbation. Continue home inhalers. Qualifiers: COPD type: unspecified COPD Qualified Code(s): J44.9 - Chronic obstructive pulmonary disease, unspecified (8) Anemia Priority: Primary Status: Acute Comments: Hgb baseline appears to be between 8-9. Hgb dropped to 7.9 on 11/07/17; no active bleeding. Suspect multifactorial with iron deficiency anemia and iatrogenic with multiple blood draws. Received 1 unit PRBC with improvement in Hgb to 8.6 Qualifiers: Anemia type: iron deficiency Iron deficiency anemia type: chronic blood loss Qualified Code(s): D50.0 - Iron deficiency anemia secondary to blood loss (chronic) (9) Acute exacerbation of chronic low back pain Priority: Primary Status: Acute Comments: Seen and examined at bedside. Patient says he feels significantly better and would like to discharge home if able. He is agreeable to blood transfusion with repeating H&H later this afternoon. Okay to discharge home if hemoglobin greater than 8. He is uncertain about going home and pain being controlled. Was requiring IV morphine for pain control. He is agreeable to increase home pain medication 2 tablets every 4 hours as needed. Pain management initially consulted however patient stated improvement in pain with increasing home pain medication regimen. Rx given for 1 week of his pain medication. Has follow-up with PCP on 11/15/17. - Discharge Medications Prescriptions: HYDROcodone/Acet 10/325 mg [[place] 10-325 mg] 2 tab PO Q4HR PRN 7 Days #84 tablet PRN Reason: Pain Home Medications: Aspirin [Adult Low Dose Aspirin EC] 81 mg PO DAILY 02/02/16 [History] Atorvastatin Calcium [Lipitor] 80 mg PO DAILY 02/02/16 [History] Nitroglycerin [Nitrostat] 0.4 mg SL AD PRN 09/18/16 [History] Amiodarone [Cordarone] 200 mg PO DAILY 04/22/17 [History] Budesonide/Formoterol 80/4.5 [Symbicort 80/4.5] 2 puff IH BID 10/05/17 [History ] Calcium Polycarbophil [Fibercon] 625 mg PO BID PRN 10/05/17 [History] Ipratropium/Albuterol Neb [Duoneb] 3 ml IH QID 10/05/17 [History] Lisinopril [Zestril] 20 mg PO DAILY 10/05/17 [History] Metoprolol [Lopressor] 12.5 mg PO BID 10/05/17 [History] Apixaban [Eliquis] 10 mg PO BID #20 tablet 11/01/17 [Rx] Lactulose 20 gm PO DAILY PRN #30 udc 11/01/17 [Rx] Furosemide [Lasix] 40 mg PO BID 11/06/17 [History] HYDROcodone/Acet 10/325 mg [[place] 10-325 mg] 2 tab PO Q4HR PRN 7 Days #84 tablet 11/07/17 [Rx] Allergies/Adverse Reactions: 3 Allergy/AdvReac Type Severity Reaction Status Date / Time No Known Allergies Allergy Verified 11/06/17 11:37 Procedures/tests Complete & Pending: Procedures Performed prior 72 hours Category Date Time Status EV limited echocardiogram Routine Y 11/06/17 21:20 Completed Date of admission: 11/05/17 19:46 Primary care physician: Eleazar Kee CNP Consults: 11/06/17 08:51 Consult to Cardiology [CONS] Routine Comment: Consulting Provider: Card[facility] [place] Reason for Consult: elevated trop, chest pressure Call Completed: Yes 11/06/17 09:58 Consult to Cardiothoracic Surgery [CONS] Routine Consulting Provider: Cardiothoracic Surgery [place] Reason for Consult: Chest pain/pressure Call Completed: Yes 11/07/17 10:24 Consult to Pain Management [CONS] Routine Consulting Provider: [facility] [place] Reason for Consult: Acute on chronic pain Call Completed: Yes - Patient Status Disposition: Home Health Service Condition: Good Functional capacity at discharge: independent ambulation Overall status at discharge: patient is back to baseline - Discharge Instructions Instructions: Hydrocodone/Acetaminophen (By mouth), Chest Tubes (DC), Anemia ( DC) Follow Up With: Eleazar Kee CNP [Primary Care Provider] - Mansoor Cobos MD [Partnered Physician] - 11/20/17 1:00 pm Rudolph Mesa MD [Partnered Physician] - Forms: ED Satisfaction Letter Additional Instructions: Follow-up appointments: If there is not an appointment listed below, please call your physician and schedule a follow-up appointment. If you have congestive heart failure and your symptoms return, make an appointment with your physician. Medication List: Carry an up to date list of medications you are taking at all time. We have given you an updated medication list including any new medications that you have been prescribed. Please provide that list to your primary provider Symptoms: If your condition changes or you experience any of the following symptoms, notify your physician immediately: Unusual or worsening pain, fever, persistent nausea and vomiting, bleeding, increase in swelling (especially in your legs), sudden weight gain, extreme dizziness, chest pain, increased drainage or redness from a wound or incision. Go to the emergency department if you experience a problem with breathing. Weights: If you have a history of swelling or shortness of breath, weigh yourself daily and notify your physician if you have a weight gain of two or more pounds in one day or 5 or more pounds in a week. If you experience any of the warning signs for stroke: Sudden numbness or weakness of the face, arm or leg; especially on one side of the body, sudden confusion, trouble speaking or understanding, sudden trouble seeing in one or both eyes, sudden trouble walking, dizziness, loss of balance or coordination, sudden sever headache with no cause; Call 911 or go to the emergency room. Stroke is a medical emergency. Some risk factors for stroke: Age, cigarette smoking, diabetes, excessive alcohol consumption, family history , high blood pressure, overweight, physical inactivity, prior stroke, heart attack, diagnosis of carotid artery stenosis or other artery disease. If you smoke, STOP: Smoking or tobacco use significantly increases your risk of heart and lung disease. Your chance of disease greatly increases if you continue to smoke. For more information, call the [place] tobacco quit line for smoking cessation QUIT-NOW ( ) - Diet and Activity Activity: increase activity as tolerated Diet: advance to your usual diet Interval History: C 10/08/17 progress note for interval history. Hospital course: See assessment and plan for hospital course - Time Spent with Patient Total time spent providing and/or coordinating discharge services: - Constitutional Vitals: Temp Pulse Resp BP Pulse Ox 98.4 F 60 16 119/70 93 11/07/17 11:20 11/07/17 11:20 11/07/17 11:20 11/07/17 11:20 11/07/17 11:20 General appearance: Present: A&O X 3 - Head Head exam: Present: atraumatic, normocephalic - Eye Eye exam: Present: PERRL, conjuntiva pink, sclera anicteric Pupils: Present: PERRL - Neck Neck exam general surgery: Present: supple, trachea midline. Absent: lymphadenopathy - Respiratory Respiratory exam: Present: CTAB. Absent: accessory muscle use, rales, rhonchi, wheezes Additional comments: Right upper chest tube - Cardiovascular Cardiovascular exam: Present: RRR, +S1, +S2. Absent: diastolic murmur, gallop, rubs, systolic murmur - GI/Abdominal GI/Abdominal exam: Present: normal bowel sounds, soft, no peritoneal signs. Absent: distended, tenderness - Extremities Exam Extremities exam: Present: warm, radial pulses palpable and symmetrical. Absent : calf tenderness, cyanotic, pedal edema - Neurological Exam Neurological exam: Present: CN II-XII intact, oriented X3, no focal deficits. Absent: pronater drift, facial droop, speech deficit - Skin Skin exam: Present: dry, intact
[2017-11-07 15:48] LABS: Hematocrit 27.5 % (37.5-50.1); Hemoglobin 8.6 g/dL (12.9-16.9)
[2017-11-07 15:49] VITALS: BP 135/72
[2017-11-07] MEDS ORDERED: Aminoglycoside Consult 1 EACH MC ONE (16:54)
== END 2017-11-07 16:55 | disposition home health service (06) ==
LOC: 3BNU 15:21 → EMEROO 15:21 → 3BNU 20:19
PROVIDERS: ADMIT Internal Medicine; ATTEND Registered Nurse

== ENCOUNTER 2017-11-10 19:36 | Inpatient (IN) ==
[2017-11-10] MEDS ORDERED: 0.9 % Sodium Chloride 1,000 ML ONE (19:51)
[2017-11-10] MEDS ORDERED: 0.9 % Sodium Chloride 500 ML ONE ×2 (19:58→20:28)
--- NOTE | 2017-11-10 19:58 | Emergency Department Note ---
Disposition Clinical Impression: Hemothorax on right Anemia Qualifiers: Anemia type: unspecified type Qualified Code(s): D64.9 - Anemia, unspecified Hypotension Qualifiers: Hypotension type: unspecified hypotension type Qualified Code(s): I95.9 - Hypotension, unspecified Disposition: Admitted As Inpatient Condition: Critical Referrals: Eleazar Kee CNP [Primary Care Provider] - Forms: ED Satisfaction Letter Time of Disposition: 20:14 General Adult HPI - General Chief complaint: ED Chest Pain Stated complaint: Chest Pain/ZONIA Time Seen by Provider: 11/10/17 19:40 Source: patient Mode of arrival: ambulatory Limitations: no limitations Nursing Notes Reviewed: Yes Vital Signs Reviewed: Yes - History of Present Illness HPI Narrative: 62-year-old male who is status post surgery for lung reduction and bleb removal for COPD who has a chest tube in. He noticed bleeding from his chest tube earlier was seen here had a hemoglobin of 8.7. He was sent home he comes back pale and diaphoretic with increasing bleeding from his lung. I did review his chest x-ray from earlier which was essentially clear on the right side but now he is completely jonny out. Immediate consultation with Dr. Blackwell he will be in to see the patient. He should has a history of bilateral blood clots and is on Eliquis Pt Subjective Complaint: Increasing shortness of breath bleeding from chest tube. Onset (ago): day(s) - Related Data Home Medications Medication Instructions Recorded Confirmed Aspirin [Adult Low Dose Aspirin EC] 81 mg PO DAILY 02/02/16 11/10/17 Atorvastatin Calcium [Lipitor] 80 mg PO DAILY 02/02/16 11/10/17 Nitroglycerin [Nitrostat] 0.4 mg SL AD PRN 07/30/16 11/10/17 Amiodarone [Cordarone] 200 mg PO DAILY 04/22/17 11/10/17 Budesonide/Formoterol 80/4.5 2 puff IH BID 10/05/17 11/10/17 [Symbicort 80/4.5] Calcium Polycarbophil [Fibercon] 625 mg PO BID PRN 10/05/17 11/10/17 Ipratropium/Albuterol Neb [Duoneb] 3 ml IH QID 10/05/17 11/10/17 Lisinopril [Zestril] 20 mg PO DAILY 10/05/17 11/10/17 Metoprolol [Lopressor] 12.5 mg PO BID 10/05/17 11/10/17 Furosemide [Lasix] 40 mg PO BID 11/06/17 11/10/17 Previous Rx's Medication Instructions Recorded Apixaban [Eliquis] 10 mg PO BID #20 tablet 11/01/17 Lactulose 20 gm PO DAILY PRN #30 udc 11/01/17 HYDROcodone/Acet 10/325 mg [[place] 2 tab PO Q4HR PRN 7 Days #84 tablet 11/07/17 10-325 mg] Allergies Allergy/AdvReac Type Severity Reaction Status Date / Time No Known Allergies Allergy Verified 11/06/17 11:37 Constitutional: Denies: fever, chills, weakness, weight change Eyes: Denies: eye pain, eye discharge, vision change ENT ED: Denies: ear pain, throat pain, dental pain, hearing loss, epistaxis, congestion, dysphagia Cardiovascular: Denies: chest pain, palpitations, dyspnea on exertion, edema, syncope Respiratory: Reports: dyspnea. Denies: cough, wheezes, hemoptysis, stridor Gastrointestinal: Denies: abdominal pain, nausea, vomiting, diarrhea, constipation, hematemesis, melena, hematochezia Genitourinary: Denies: urgency, dysuria, frequency, hematuria Musculoskeletal: Denies: back pain, neck pain, arthralgia, myalgia Integumentary: Denies: rash, abrasion, lesions Neurological: Denies: headache, weakness, numbness, paresthesias, confusion, abnormal gait, vertigo Psychiatric: Denies: anxiety, depression, suicidal thoughts, homicidal thoughts , auditory hallucinations, visual hallucinations Endocrine: Denies: fatigue Hematological/Lymphatic: Denies: easy bleeding, easy bruising Allergic/Immunologic: Denies: facial swelling, urticaria Past Medical History - Past Medical History Medical history: Reports: asthma, atrial fibrillation, cardiomyopathy, CHF, COPD , coronary artery disease, hyperlipidemia, hypertension Surgical history: Reports: coronary bypass (CABG), herniorrhaphy, other Psychiatric history: Reports: anxiety - Social History Smoking Status: Former smoker Smokeless Tobacco Status: No Alcohol use: Reports: none Drug use: Reports: none Physical Exam - General Limitations: no limitations General appearance: other - Head Head exam: atraumatic (L and diaphoretic), normocephalic, normal inspection - Eye Eye exam: Present: normal appearance, PERRL, EOMI - ENT ENT exam: normal exam, normal oropharynx, mucous membranes moist - Neck Neck exam: Present: normal inspection, full ROM, trachea midline - Chest Chest inspection: Present: normal inspection, symmetric chest wall rise - Respiratory Respiratory exam: Present: other (To manage breath sounds on the right side) - Cardiovascular Cardiovascular exam: Present: regular rate, normal rhythm, normal heart sounds - Abdominal Exam Abdominal exam: Present: soft, Non-Tender. Absent: tenderness, distention, guarding, rebound, rigidity - Extremities Exam Extremities exam: Present: normal inspection, full ROM. Absent: tenderness, pedal edema - Expanded Lower Extremity Exam Gait: observed and normal - Back Exam Back exam: Present: normal inspection, full ROM. Absent: tenderness - Neurological Exam Neurological exam: Present: alert, oriented X3 - Psychiatric Psychiatric exam: Present: normal affect, normal mood - Skin Skin exam: Present: warm, dry, intact, normal color Course - Reevaluation(s) Reevaluation #1: Patient typed and crossed for 2 units trauma blood ordered and on standby in the ER. Activated factor VII ordered from pharmacy. Patient does have a history DVT is on Elliquis. Due to the bleeding or going to reverse his Ellick was he will possibly need a [place] filter view his bleeding as life-threatening. Time: 20:13 Reevaluation #2: Hemoglobin is 7.5 down from 8.7, typed and crossed blood is not available to start trauma blood at this time. Time: 20:19 - Consultations Consultation #1: Stressed with Dr. Blackwell who is on his way in to see the patient. Time: 19:56 Consultation #2: Discussed with , admit. Time: 19:56 Vital Signs Temperature 99.3 F 11/10/17 19:45 Pulse Rate 79 11/10/17 19:45 Respiratory Rate 22 11/10/17 19:45 Blood Pressure 94/65 11/10/17 19:45 O2 Sat by Pulse Oximetry 100 11/10/17 19:45 Temperature 99.3 F 11/10/17 19:45 Pulse Rate 79 11/10/17 19:45 Respiratory Rate 22 11/10/17 19:45 Blood Pressure 94/65 11/10/17 19:45 O2 Sat by Pulse Oximetry 99 11/10/17 20:13 Oxygen Delivery Oxygen Delivery Nasal Cannula Medical Decision Making - Lab Data Result diagrams: 11/10/17 19:50 Lab Results 11/10/17 11/10/17 Range/Units 19:41 19:50 WBC 14.6 H (4.3-11.1) K/mcL RBC 2.74 L (4.19-5.50) M/mcL Hgb 7.5 L (12.9-16.9) g/dL Hct 24.7 L (37.5-50.1) % MCV 90.1 (83.0-100.0) fL MCH 27.4 L (28.0-33.3) pg MCHC 30.4 L (31.6-35.5) g/dL RDW 16.7 H (11.5-14.5) % Plt Count 295 (140-400) K/mcL MPV 9.9 (9.4-12.4) fL Immature Gran % 0.9 (0-4) % Seg Neutrophils % 85.8 % Lymphocytes % 5.9 % Monocytes % 6.8 % Eosinophils % 0.1 % Basophils % 0.5 % Neutrophils # 12.5 H (1.6-8.9) K/mcL Lymphocytes # 0.9 (0.6-4.6) K/mcL Monocytes # 1.0 (0.0-1.3) K/mcL Eosinophils # 0.0 (0.0-0.6) K/mcL Basophils # 0.1 (0.0-0.2) K/mcL Crossmatch See Detail - EKG Data EKG #1 EKG attestation: Yes I reviewed and interpreted this EKG. EKG shows normal: sinus rhythm Rate: normal Rhythm: NSR, PAC's Interpretation: no acute changes Critical Care Time Critical Care Time: Yes Total Critical Care Time: 30 Attestation: The high probability of a clinically significant, sudden or life threatening deterioration of the [hematologic] system(s) required my full and direct attention, intervention and personal management. The aggregate critical care time was [30] minutes. This time is in addition to time spent performing reported procedures but includes the following: [x] Data Review and interpretation [x] Patient assessment and monitoring of vital signs [x] Documentation [x] Medication orders and management
[2017-11-10] MEDS ORDERED: FEIBA (wt based) 1 EACH VIAL IV STA (20:05)
[2017-11-10 20:10] LABS: Basophils # 0.1 K/mcL (0.0-0.2); Basophils % 0.5 %; Eosinophils % 0.1 %; Hematocrit 24.7 % (37.5-50.1); Immature Granulocytes % 0.9 % (0-4); Lymphocytes # 0.9 K/mcL (0.6-4.6); Lymphocytes % 5.9 %; Mean Corpuscular HGB Conc 30.4 g/dL (31.6-35.5); Mean Corpuscular Hemoglobin 27.4 pg (28.0-33.3); Mean Corpuscular Volume 90.1 fL (83.0-100.0); Mean Platelet Volume 9.9 fL (9.4-12.4); Monocytes % 6.8 %; Neutrophils # 12.5 K/mcL (1.6-8.9); Platelet Count 295 K/mcL (140-400); Red Blood Count 2.74 M/mcL (4.19-5.50); Red Cell Distribution Width 16.7 % (11.5-14.5); Segmented Neutrophils % 85.8 %
[2017-11-10 20:13] LABS: Hemoglobin 7.5 g/dL (12.9-16.9)
[2017-11-10 20:19] LABS: INR 1.4; Prothrombin Time 15.6 Seconds (9.4-12.1)
[2017-11-10 20:22] LABS: Activated Partial Thrombo Time 30.7 Seconds (26.0-36.0)
[2017-11-10 20:32] LABS: BUN/Creatinine Ratio 20 (6-26); Blood Urea Nitrogen 12 mg/dL (8-23); Calcium 4.6 mg/dL (8.6-10.3); Carbon Dioxide 16 mEq/L (23-29); Chloride 124 mEq/L (98-107); Glucose 85 mg/dL (70-105); Osmolality,Calculated 297 (280-300); Potassium 2.5 mEq/L (3.5-5.1); Sodium 144 mEq/L (136-145); eGFR For African Americans > 60 (> 60); eGFR For Non-African Americans > 60 (> 60)
[2017-11-10] MEDS ORDERED: Ondansetron 4 MG/2 ML VIAL IVP ONE (20:32)
[2017-11-10] MEDS ORDERED: *HR* Morphine 2 MG/ML SYRINGE IVP ONE (20:44)
[2017-11-10] MEDS ORDERED: WATER FOR INJ IVPB ONE (20:45)
[2017-11-10] MEDS ORDERED: ANTI INHIBITOR COAGULANT COMP IVPB ONE (20:45)
[2017-11-10] MEDS ORDERED: *HR* FentaNYL (PF) 250 MCG/5 ML VIAL ONE (21:15)
[2017-11-10] MEDS ORDERED: *HR* Midazolam HCl 5 MG/5 ML VIAL IVP ONE (21:15)
[2017-11-10] MEDS ORDERED: *HR* Etomidate 20 MG/10 ML AMPUL IVP ONE (21:15)
[2017-11-10] MEDS ORDERED: *HR* Rocuronium Bromide 50 MG/5 ML VIAL ONE ×2 (21:15→22:50)
[2017-11-10] MEDS ORDERED: *HR* Phenylephrine 10 MG/ML VIAL ONE (21:15)
[2017-11-10] MEDS ORDERED: Heparin 1,000 UNITS/500 mL 500 ML ONE (21:24)
--- NOTE | 2017-11-10 21:30 | Anesthesia Evaluation PreOp ---
Date of Encounter: 11/10/17 Time of Encounter: 21:28 - Past History Planned Operation: right thoracotomy Cardiac History: CHF, HTN, Hyperlipidemia, Arrhythmia (a-fib), Cardiac Surgery ( CABG), Other (CAD, cardiomyopathy) Pulmonary History: Former smoker (quit 2013), Asthma, COPD, Other (spontaneous pneumos, s/p thoracotomy with bleb resection 10-18) Other Medical History: Other (MRSA bacteremia) Anesthesia History: No Prior Anesthetic Complications, Past Anesthesia (CABG, hernia, thoracotomy) Alcohol Use: none Drug use: none Medications and Allergies Aspirin [Adult Low Dose Aspirin EC] 81 mg PO DAILY 02/02/16 [History] Atorvastatin Calcium [Lipitor] 80 mg PO DAILY 02/02/16 [History] Nitroglycerin [Nitrostat] 0.4 mg SL AD PRN 07/30/16 [History] Amiodarone [Cordarone] 200 mg PO DAILY 04/22/17 [History] Budesonide/Formoterol 80/4.5 [Symbicort 80/4.5] 2 puff IH BID 10/05/17 [History ] Calcium Polycarbophil [Fibercon] 625 mg PO BID PRN 10/05/17 [History] Ipratropium/Albuterol Neb [Duoneb] 3 ml IH QID 10/05/17 [History] Lisinopril [Zestril] 20 mg PO DAILY 10/05/17 [History] Metoprolol [Lopressor] 12.5 mg PO BID 10/05/17 [History] Apixaban [Eliquis] 10 mg PO BID #20 tablet 11/01/17 [Rx] Lactulose 20 gm PO DAILY PRN #30 udc 11/01/17 [Rx] Furosemide [Lasix] 40 mg PO BID 11/06/17 [History] HYDROcodone/Acet 10/325 mg [[place] 10-325 mg] 2 tab PO Q4HR PRN 7 Days #84 tablet 11/07/17 [Rx] 3 Allergy/AdvReac Type Severity Reaction Status Date / Time No Known Allergies Allergy Verified 11/06/17 11:37 - Meds/Allergy Pre-op Review Medications Reviewed: Yes Allergies Reviewed: Yes Beta Blockers on Current Med List: Yes If Beta Blockers taken, Date/Time (Last Dose taken): metoprolol Anesthesia Results - Labs 11/10/17 19:50 11/10/17 19:50 - Imaging Additional studies: echo 11-07: Impressions: LVEF 60%. Atypical septal motion consistent with post-operative status. Normal right ventricular structure and function. Anesthesia Exam Selected Entries 11/10/17 20:13 11/10/17 20:23 11/10/17 21:16 Temperature 99.6 F Pulse Rate 80 Respiratory Rate 18 Blood Pressure 111/71 Blood Pressure Mean 84 O2 Sat by Pulse Oximetry 100 Oxygen Flow Rate (LPM) 5 Oxygen Delivery Method Nasal Cannula - HEENT Pupil (Motor): EOMI Mallampati: II Teeth: Edentulous Oral Opening: Greater than 3 - ELECTRONICS ENGINEERING TECHNICIAN LOC: Oriented ELECTRONICS ENGINEERING TECHNICIAN Motor: Normal RUE, Normal LUE, Normal RLE, Normal LLE, Normal Face ELECTRONICS ENGINEERING TECHNICIAN Sensory: Normal: RUE, LUE, RLE, LLE, Face - Cardiac Rhythm: Regular Murmur: None - Pulmonary Breath Sounds: bilateral Clear (decreased right upper) Anesthesia Assess/Plan ASA Score: 4, E Modified Stanley Scale for Level of Consciousness: Cooperative, oriented, and tranquil Anesthetic Plan: General Monitoring Plan: Standard Monitors, A-Line Recovery Plan: ICU (discussed GA, a-line and possible need for blood products. agrees to proceed)
--- NOTE | 2017-11-10 21:46 | Cardiothoracic H&P ---
Date of Encounter: 11/10/17 Time of Encounter: 21:39 Assessment and Plan (1) Hemothorax on right Current Visit: Yes Status: Acute The assessment and plan as outlined above was discussed with the patient and/or family members who expressed understanding and agreement. All questions were answered. History of Present Illness Chief complaint: Bleeding from right chest tube site. HPI: Mr. Johnson is a 62 year old man with multiple medical problems including CAD, chronic atrial fibrillation, hypertension, COPD, and recent MRSA pneumonia. The patient had been admitted to [facility] on October 04, 2017 for treatment of a right spontaneous pneumothorax. The patient had a prolonged air leak and during the workup was found to have stable right lung bulla. He underwent a right thoracotomy and bleb resection on October 19, 2017. His postoperative course was long and complicated by a prolonged postoperative air leak, postoperative respiratory insufficiency breath disease COPD exacerbation) , and MRSA pneumonia. He was discharged home with a Heimlich valve on November 01, 2017. He returned to the [facility] on November 05, 2017 with chest pain. He had minimally elevated troponin I levels and was treated medically. He had an intermittent air leak at that time and the plan was to have him return to the office once the air leak and stopped. Today the patient reports that it to the emergency department complaining of bleeding around the chest tube site. I was contacted by the emergency room physician and it was decided that the chest tube site would be packed to help stop the blood flow since the patient was on Elequis for chronic atrial fibrillation and bilateral DVTs. He was offered admission at that time; however, the family declined. He returned to the emergency department again this evening stating that he felt worse. Although there was no significant bleeding around the chest tube site, he did complain of some chest pressure. A chest x-ray showed a right apical fluid collection. Subsequent chest CT revealed Past Med Surg Social Fam HX - Past Medical History Medical history: asthma, atrial fibrillation, cardiomyopathy, CHF, COPD, coronary artery disease, hyperlipidemia, hypertension Psychiatric history: anxiety - Past Surgical History Surgical History: coronary bypass (CABG), herniorrhaphy, other (Right thoracotomy with multiple bleb resections) - Social History Smoking Status: Former smoker Smokeless Tobacco Status: No Alcohol use: none Drug use: none Occupational status: retired Current living situation: Home - Independent Activity Level: Mostly sedentary Recent Out of Country Travel Within the Last 8 Weeks: No Exposure or Possible Exposure to Illness During Travel: No - Family History Mother Living Status: Hx Family Cardiac Disorders: No Hx Family Respiratory Disorders: No Hx Family Cancer: No Hx Family GI Disorders: No Hx Family Endocrine Disorder: No Hx Family Neuromuscular Disorders: No Hx Family Neurologic Disorders: No Hx Family HEENT Disorders: No Hx Family Autoimmune Disorders: No Father Living Status: Hx Family Cardiac Disorders: No Hx Family Respiratory Disorders: No Hx Family Cancer: No Hx Family GI Disorders: No Hx Family Endocrine Disorder: No Hx Family Neuromuscular Disorders: No Hx Family Neurologic Disorders: No Hx Family HEENT Disorders: No Hx Family Autoimmune Disorders: No Medications and Allergies Aspirin [Adult Low Dose Aspirin EC] 81 mg PO DAILY 02/02/16 [History] Atorvastatin Calcium [Lipitor] 80 mg PO DAILY 02/02/16 [History] Nitroglycerin [Nitrostat] 0.4 mg SL AD PRN 07/30/16 [History] Amiodarone [Cordarone] 200 mg PO DAILY 04/22/17 [History] Budesonide/Formoterol 80/4.5 [Symbicort 80/4.5] 2 puff IH BID 10/05/17 [History ] Calcium Polycarbophil [Fibercon] 625 mg PO BID PRN 10/05/17 [History] Ipratropium/Albuterol Neb [Duoneb] 3 ml IH QID 10/05/17 [History] Lisinopril [Zestril] 20 mg PO DAILY 10/05/17 [History] Metoprolol [Lopressor] 12.5 mg PO BID 10/05/17 [History] Apixaban [Eliquis] 10 mg PO BID #20 tablet 11/01/17 [Rx] Lactulose 20 gm PO DAILY PRN #30 udc 11/01/17 [Rx] Furosemide [Lasix] 40 mg PO BID 11/06/17 [History] HYDROcodone/Acet 10/325 mg [[place] 10-325 mg] 2 tab PO Q4HR PRN 7 Days #84 tablet 11/07/17 [Rx] 3 Allergy/AdvReac Type Severity Reaction Status Date / Time No Known Allergies Allergy Verified 11/06/17 11:37 All Systems Review: A 10-system review of systems was performed and is negative for pertinent findings except as documented above in the HPI. Physical Examination Vital Signs, Last 4 Hours Temp Pulse Resp BP 11/10/17 21:16 99.6 F 80 18 111/71 General: Conversant, Other (No respiratory distress, though he appears ashen) HEENT: Atraumatic, Normocephaly, Trachea midline Neck: No JVD, Normal carotid pulses Cardiac: Normal S1 and S2, No Murmur, Other (Irregular rate and rhythm and sees atrial fibrillation).) Lungs: Decreased breath sounds Neuro: Alert and responsive, No focal deficits noted Vascular: Normal capillary refill Abdomen: Soft, Non-tender Skin: No rashes noted on visualized skin Extremities: No Clubbing, No Cyanosis, No Edema Results 11/10/17 19:50 11/10/17 19:50 - Imaging Chest Xray: image reviewed (Normal cardiac size. Large rounded opacity in the right apex)
[2017-11-10] MEDS ORDERED: Calcium Gluconate 2,000 MG in D5% in Water 100 ML IVPB ONE (21:47)
[2017-11-10] MEDS ORDERED: Acetaminophen 325 MG TABLET PO PRN (22:04)
[2017-11-10] MEDS ORDERED: *HR* Morphine 2 MG/ML SYRINGE IVP PRN (22:04)
[2017-11-10] MEDS ORDERED: Naloxone 0.4 MG/ML INJ IVP PRN (22:04)
[2017-11-10] MEDS ORDERED: Lactulose Oral Soln 20 GM/30 ML UDC PO PRN (22:08)
[2017-11-10] MEDS ORDERED: Nitroglycerin 0.4 MG TAB.SUBL SL PRN (22:08)
--- NOTE | 2017-11-10 22:18 | Internal Med History&Physical ---
Date of Encounter: 11/10/17 Time of Encounter: 21:00 Assessment and Plan (1) Hemothorax on right Current visit: Yes Status: Acute The patient appears to have developed right-sided hemothorax. High risk for complications. Will admit to ICU. Cardiovascular surgery consultation. Will follow recommendations. Patient is at high risk for sudden clinical decline. Monitor blood counts. Monitor pulse oximetry and telemetry. Monitor urine output. Transfuse PRBC. Reverse anticoagulation. (2) Acute and chronic respiratory failure with hypoxia Current visit: Yes Status: Acute Due to underlying right-sided hemothorax. Continue O2 supplementation. Follow cardiovascular surgery recommendations. Monitor pulse oximetry. (3) Anemia Current visit: Yes Status: Acute Due to acute blood loss anemia. From right-sided hemothorax. Monitor blood counts. Continue blood transfusion to keep hemoglobin greater than 8. Qualifiers: Anemia type: iron deficiency Iron deficiency anemia type: chronic blood loss Qualified Code(s): D50.0 - Iron deficiency anemia secondary to blood loss (chronic) (4) DVT (deep venous thrombosis) Current visit: Yes Status: Acute Patient has recently diagnosed bilateral lower extremity deep vein thrombosis involving the gastrocnemius veins. Currently having right-sided hemothorax and bleeding through his chest tube. We will stop anticoagulation. Patient may need IVC filter placement at this time to prevent PE. Qualifiers: DVT location: lower extremity Affected thrombotic vein of extremity: unspecified vein of extremity Chronicity: chronic Laterality: left Qualified Code(s): I82.502 - Chronic embolism and thrombosis of unspecified deep veins of left lower extremity (5) Atrial fibrillation Current visit: Yes Status: Chronic In sinus rhythm. Continue home medications. Hold Eliquis due to bleed and hemothorax Qualifiers: Atrial fibrillation type: chronic Qualified Code(s): I48.2 - Chronic atrial fibrillation (6) CAD (coronary artery disease) Current visit: Yes Status: Chronic Patient has mild elevation in troponin at 0.04 which is chronic for him. We will trend troponins. Monitor with telemetry. Continue home medications. Qualifiers: Coronary Disease-Associated Artery/Lesion type: [place] artery [place] vs. transplanted heart: saxman heart Associated angina: without angina Qualified Code(s): I25.10 - Atherosclerotic heart disease of [place] coronary artery without angina pectoris (7) COPD (chronic obstructive pulmonary disease) Current visit: Yes Status: Chronic Not in acute exacerbation. We will use bronchodilators as needed. O2 supplementation. Qualifiers: COPD type: unspecified COPD Qualified Code(s): J44.9 - Chronic obstructive pulmonary disease, unspecified (8) Hypotension Current visit: Yes Status: Acute Due to pneumothorax and bleeding through the chest tube. Improving. Will monitor blood pressure closely. Hold antihypertensives for now. Qualifiers: Hypotension type: other hypotension type Qualified Code(s): I95.89 - Other hypotension Internal Medicine - H&P: HPI Chief complaint: Bleeding from right-sided chest tube Admitted From: Emergency Dept Plans for Post Hospital Care: Transfer [facility] Facility History of present illness: Mr. Johnson is a 62 year old male patient with history of coronary artery disease, atrial fibrillation, bilateral deep vein thrombosis , COPD, hypertension, recent MRSA pneumonia and bacteremia presented to the ER earlier this morning with complaints of pain and the bleeding from his right-sided chest tube site. Patient had recently undergone placement of chest tube after he developed right-sided pneumothorax and also had a right lung bulla. He underwent right thoracotomy and bleb resection on October 19, 2017. He had been discharged from the hospital on 11/07/17 after being admitted for chest heaviness during which time cardiology was consulted. They did not recommend any further workup at that time. Patient was then discharged home. Patient is on Eliquis for his bilateral lower extremity DVT. He had been doing well overall to the symptoms again this morning. He initially came to the ER and was evaluated in the ER. Per consultation with cardiothoracic surgery, the chest tube site was packed to prevent further bleeding. He went home after that but came back to the ER with much more severe pain and bleeding involving the right side of the chest. He has chest tube with Heimlich valve. Cardiothoracic surgery has been consulted and they did recommend admission to ICU. Presently patient mainly complains of pain in his right chest. He was hypotensive on arrival but his blood pressure has now improved. He does have shortness of breath. No palpitations. Past Med Surg Social Fam HX - Past Medical History Attestation: Yes The following information was validated with the patient. Source: patient, old records reviewed, obtained from family Medical history: asthma, atrial fibrillation, cardiomyopathy, CHF, COPD, coronary artery disease, hyperlipidemia, hypertension Psychiatric history: anxiety - Past Surgical History Surgical History: coronary bypass (CABG), herniorrhaphy, other (Right thoracotomy with multiple bleb resections) - Social History Smoking Status: Former smoker Smokeless Tobacco Status: No Alcohol use: none Drug use: none - Family History Mother Living Status: Hx Family Cardiac Disorders: No Hx Family Respiratory Disorders: No Hx Family Cancer: No Hx Family GI Disorders: No Hx Family Endocrine Disorder: No Hx Family Neuromuscular Disorders: No Hx Family Neurologic Disorders: No Hx Family HEENT Disorders: No Hx Family Autoimmune Disorders: No Father Living Status: Hx Family Cardiac Disorders: No Hx Family Respiratory Disorders: No Hx Family Cancer: No Hx Family GI Disorders: No Hx Family Endocrine Disorder: No Hx Family Neuromuscular Disorders: No Hx Family Neurologic Disorders: No Hx Family HEENT Disorders: No Hx Family Autoimmune Disorders: No Internal Medicine - H&P: Meds Aspirin [Adult Low Dose Aspirin EC] 81 mg PO DAILY 02/02/16 [History] Atorvastatin Calcium [Lipitor] 80 mg PO DAILY 02/02/16 [History] Nitroglycerin [Nitrostat] 0.4 mg SL AD PRN 07/30/16 [History] Amiodarone [Cordarone] 200 mg PO DAILY 04/22/17 [History] Budesonide/Formoterol 80/4.5 [Symbicort 80/4.5] 2 puff IH BID 10/05/17 [History ] Calcium Polycarbophil [Fibercon] 625 mg PO BID PRN 10/05/17 [History] Ipratropium/Albuterol Neb [Duoneb] 3 ml IH QID 10/05/17 [History] Lisinopril [Zestril] 20 mg PO DAILY 10/05/17 [History] Metoprolol [Lopressor] 12.5 mg PO BID 10/05/17 [History] Apixaban [Eliquis] 10 mg PO BID #20 tablet 11/01/17 [Rx] Lactulose 20 gm PO DAILY PRN #30 udc 11/01/17 [Rx] Furosemide [Lasix] 40 mg PO BID 11/06/17 [History] HYDROcodone/Acet 10/325 mg [[place] 10-325 mg] 2 tab PO Q4HR PRN 7 Days #84 tablet 11/07/17 [Rx] 3 Allergy/AdvReac Type Severity Reaction Status Date / Time No Known Allergies Allergy Verified 11/06/17 11:37 All Systems PM: A 10-system review of systems was performed and is negative for pertinent findings except as documented above in the HPI. - Constitutional Constitutional: malaise - EENT Eyes: no change in vision, no discharge, no pain, no photophobia Ears: no ear discharge, no ear pain, no tinnitus Nose, mouth and throat: no dysphagia, no nasal discharge, no neck pain, no sore throat - Cardiovascular Cardiovascular ROS IM: chest pain, dyspnea, lightheadedness, no diaphoresis, no palpitations, no syncope - Respiratory Respiratory: dyspnea, no cough, no wheezing, no excessive phlegm production - Gastrointestinal Gastrointestinal: no abdominal pain, no diarrhea, no hematemesis, no hematochezia, no melena, no nausea, no vomiting - Musculoskeletal Musculoskeletal ROS IM: no numbness, no tingling - Integumentary Integumentary IM: no rash, no unusual bruising - Neurological Neurological ROS: no confusion, no convulsions, no focal weakness, no numbness, no tingling, no tremor(s) - Hematologic/Lymphatic Hematologic/Lymphatic: no easy bruising - Constitutional Vitals: Temp Pulse Resp BP Pulse Ox 99.6 F 80 18 111/71 100 11/10/17 21:16 11/10/17 21:16 11/10/17 21:16 11/10/17 21:16 11/10/17 20:23 General appearance: Present: cooperative, A&O X 2, severe distress, answers questions appropriately - Neck Neck exam general surgery: Present: supple, trachea midline. Absent: lymphadenopathy - Respiratory Respiratory exam: Present: CTAB. Absent: accessory muscle use, rales, rhonchi, wheezes - Cardiovascular Cardiovascular exam: Present: RRR, +S1, +S2. Absent: diastolic murmur, gallop, rubs, systolic murmur - GI/Abdominal GI/Abdominal exam: Present: normal bowel sounds, soft, no peritoneal signs. Absent: distended, tenderness - Extremities Exam Extremities exam: Present: warm, radial pulses palpable and symmetrical. Absent : calf tenderness, cyanotic, pedal edema - Neurological Exam Neurological exam: Present: alert, oriented X3, no focal deficits. Absent: facial droop, speech deficit - Skin Skin exam: Present: dry, intact Internal Med - H&P Results - Labs CBC & Chem 7: 11/10/17 19:50 11/10/17 19:50 - Impressions Chest x-ray shows a right-sided chest tube with large opacity in the right upper lobe
[2017-11-10] MEDS ORDERED: Vancomycin 1,000 MG in D5% in Water 250 ML IVPB ONE (22:42)
[2017-11-11] MEDS ORDERED: SUGAMMADEX SODIUM 500 MG/5 ML VIAL IV ONE (00:06)
[2017-11-11] MEDS ORDERED: *HR* Etomidate 20 MG/10 ML AMPUL IVP ONE (00:15)
--- NOTE | 2017-11-11 00:18 | Cardiothoracic Consult Note ---
Date of Encounter: 11/11/17 Time of Encounter: 20:53 Assessment and Plan (1) Hemothorax on right Current Visit: Yes Status: Acute The patient is a 62-year-old man who recently underwent a right thoracotomy and multiple bleb resections for a persistent air leak due to a right spontaneous pneumothorax. Today he presented to the emergency department with bleeding from the chest tube site. The initial chest x-ray did not reveal any evidence of bleeding within the chest. The chest tube site was dressed with packing and the patient was offered admission. He declined admission and stated that he would return if he had further difficulties. Early this evening the patient had right- sided chest pain and a repeat chest x-ray showed a large loculated fluid collection in the right apex. This was confirmed by chest CT and thought to be consistent with a hemothorax. He will be taken for urgent right thoracotomy and evacuation of hematoma. The assessment and plan as outlined above was discussed with the patient and/or family members who expressed understanding and agreement. All questions were answered. - History of Present Illness Consult date: 11/11/17 Requesting physician: Alfredo Beckett Consult reason: Right hemothorax Chief complaint: Right-sided chest pain History of present illness: Mr. Johnson is a 62 year old man with multiple medical problems including CAD, chronic atrial fibrillation, hypertension, COPD, and recent MRSA pneumonia. The patient had been admitted to [facility] on October 04, 2017 for treatment of a right spontaneous pneumothorax. The patient had a prolonged air leak and during the workup was found to have stable right lung bulla. He underwent a right thoracotomy and bleb resection on October 19, 2017. His postoperative course was long and complicated by a prolonged postoperative air leak, postoperative respiratory insufficiency breath disease COPD exacerbation) , and MRSA pneumonia. He was discharged home with a Heimlich valve on November 01, 2017. He returned to the [facility] on November 05, 2017 with chest pain. He had minimally elevated troponin I levels and was treated medically. He had an intermittent air leak at that time and the plan was to have him return to the office once the air leak and stopped. Today the patient reports that it to the emergency department complaining of bleeding around the chest tube site. I was contacted by the emergency room physician and it was decided that the chest tube site would be packed to help stop the blood flow since the patient was on Elequis for chronic atrial fibrillation and bilateral DVTs. He was offered admission at that time; however, the family declined. He returned to the emergency department again this evening stating that he felt worse. Although there was no significant bleeding around the chest tube site, he did complain of some chest pressure. A chest x-ray showed a right apical fluid collection. Subsequent chest CT revealed a right hydropneumothorax with significant increase in the volume of complex pleural fluid. The patient was recommended for urgent right thoracotomy and evacuation of hematoma. Past Med Surg Social Fam HX - Past Medical History Medical history: asthma, atrial fibrillation, cardiomyopathy, CHF, COPD, coronary artery disease, hyperlipidemia, hypertension Psychiatric history: anxiety - Past Surgical History Surgical History: coronary bypass (CABG), herniorrhaphy, other (Right thoracotomy with multiple bleb resections) - Social History Smoking Status: Former smoker Smokeless Tobacco Status: No Alcohol use: none Drug use: none Occupational status: retired Current living situation: Home - Independent, With Family Activity Level: Mostly sedentary Recent Out of Country Travel Within the Last 8 Weeks: No Exposure or Possible Exposure to Illness During Travel: No - Family History Mother Living Status: Hx Family Cardiac Disorders: No Hx Family Respiratory Disorders: No Hx Family Cancer: No Hx Family GI Disorders: No Hx Family Endocrine Disorder: No Hx Family Neuromuscular Disorders: No Hx Family Neurologic Disorders: No Hx Family HEENT Disorders: No Hx Family Autoimmune Disorders: No Father Living Status: Hx Family Cardiac Disorders: No Hx Family Respiratory Disorders: No Hx Family Cancer: No Hx Family GI Disorders: No Hx Family Endocrine Disorder: No Hx Family Neuromuscular Disorders: No Hx Family Neurologic Disorders: No Hx Family HEENT Disorders: No Hx Family Autoimmune Disorders: No Medications and Allergies Aspirin [Adult Low Dose Aspirin EC] 81 mg PO DAILY 02/02/16 [History] Atorvastatin Calcium [Lipitor] 80 mg PO DAILY 02/02/16 [History] Nitroglycerin [Nitrostat] 0.4 mg SL AD PRN 07/30/16 [History] Amiodarone [Cordarone] 200 mg PO DAILY 04/22/17 [History] Budesonide/Formoterol 80/4.5 [Symbicort 80/4.5] 2 puff IH BID 10/05/17 [History ] Calcium Polycarbophil [Fibercon] 625 mg PO BID PRN 10/05/17 [History] Ipratropium/Albuterol Neb [Duoneb] 3 ml IH QID 10/05/17 [History] Lisinopril [Zestril] 20 mg PO DAILY 10/05/17 [History] Metoprolol [Lopressor] 12.5 mg PO BID 10/05/17 [History] Apixaban [Eliquis] 10 mg PO BID #20 tablet 11/01/17 [Rx] Lactulose 20 gm PO DAILY PRN #30 udc 11/01/17 [Rx] Furosemide [Lasix] 40 mg PO BID 11/06/17 [History] HYDROcodone/Acet 10/325 mg [[place] 10-325 mg] 2 tab PO Q4HR PRN 7 Days #84 tablet 11/07/17 [Rx] 3 Allergy/AdvReac Type Severity Reaction Status Date / Time No Known Allergies Allergy Verified 11/06/17 11:37 All Systems Review: A 10-system review of systems was performed and is negative for pertinent findings except as documented above in the HPI. Physical Examination Vital Signs, Last 4 Hours Temp Pulse Resp BP 11/10/17 22:07 20 110/71 11/10/17 21:16 99.6 F 80 18 111/71 General: Conversant, Other (Slight respiratory distress with ashen appearance) HEENT: Atraumatic, Normocephaly, Trachea midline Neck: No JVD, Normal carotid pulses Cardiac: Normal S1 and S2, No Murmur, Other (Irregular rate and rhythm (atrial fibrillation)) Lungs: Decreased breath sounds Neuro: Alert and responsive, No focal deficits noted Vascular: Normal capillary refill Abdomen: Soft, Non-tender Extremities: No Clubbing, No Cyanosis, No Edema Results 11/10/17 19:50 11/10/17 19:50 - Imaging Chest Xray: image reviewed (Normal cardiac size. Right apical fluid collection consistent with hemothorax.) Consult Discharge Plan - Plan Referrals: Eleazar Kee CNP [Primary Care Provider] -
[2017-11-11] MEDS ORDERED: *HR* Vecuronium 10 MG VIAL IVP ONE (00:30)
[2017-11-11] MEDS ORDERED: *HR* Midazolam HCl 5 MG/5 ML VIAL IVP ONE ×2 (00:30→00:31)
[2017-11-11] MEDS ORDERED: *HR* Vecuronium 10 MG VIAL ONE (00:31)
[2017-11-11] MEDS ORDERED: *HR* OxyCODONE/APAP 5/325 TABLET PO PRN (00:35)
--- NOTE | 2017-11-11 00:35 | Operative Note ---
Date of procedure: 11/11/17 Pre-op diagnosis: Right hemothorax. Post-op diagnosis: same Procedure: 1. Right posterior lateral thoracotomy. 2. Evacuation of hematoma. Implants: None. Complications: None. Anesthesia: JASMIN Surgeon: Nga Blackwell Was there an assistant professor of physics present: No Estimated blood loss (cc): 250 Specimen: None. Condition: stable Disposition: ICU Procedure in Detail: INDICATIONS FOR OPERATION: The patient is a 62 year old man with multiple medical problems including CAD, chronic atrial fibrillation, hypertension, COPD, and recent MRSA pneumonia. The patient had been admitted to [facility] on October 04, 2017 for treatment of a right spontaneous pneumothorax. The patient had a prolonged air leak and during the workup was found to have stable right lung bulla. He underwent a right thoracotomy and bleb resection on October 19, 2017. His postoperative course was long and complicated by a prolonged postoperative air leak, postoperative respiratory insufficiency breath disease COPD exacerbation) , and MRSA pneumonia. He was discharged home with a Heimlich valve on November 01, 2017. He returned to the [facility] on November 05, 2017 with chest pain. He had minimally elevated troponin I levels and was treated medically. He had an intermittent air leak at that time and the plan was to have him return to the office once the air leak and stopped. Today the patient reports that it to the emergency department complaining of bleeding around the chest tube site. I was contacted by the emergency room physician and it was decided that the chest tube site would be packed to help stop the blood flow since the patient was on Eliquis for chronic atrial fibrillation and bilateral DVTs. He was offered admission at that time; however, the family declined. He returned to the emergency department again this evening stating that he felt worse. Although there was no significant bleeding around the chest tube site, he did complain of some chest pressure. A chest x-ray showed a right apical fluid collection. Subsequent chest CT revealed a right hydropneumothorax with significant increase in the volume of complex pleural fluid. The patient was recommended for urgent right thoracotomy and evacuation of hematoma. FINDINGS AT OPERATION: The patient had a large amount of loculated, organized hematoma along the diaphragm, right lateral chest wall, and right apex. In addition, a loculated serosanguineous fluid flexion was identified above the diaphragm and removed. DESCRIPTION OF OPERATION: After obtaining informed consent from the patient, he was taken to the operating room where satisfactory general endotracheal anesthetic was induced. A double-lumen endotracheal tube was inserted as were other appropriate monitoring lines. Patient was then turned in the left lateral decubitus position and his right lateral chest was prepped and draped in a sterile fashion. A previous thoracotomy incision was opened through the skin and subcutaneous tissue. Both the latissimus dorsi muscle group and serratus anterior muscle group were divided. The fifth intercostal space was identified and opened. Upon opening the right hemithorax, a loculated hemothorax was noted along the diaphragm, right lateral chest wall, and right apex. The hemothorax appeared to be organized and adherent to the parietal pleura. My sense was that the hemothorax had been present for longer than the 8-10 hours between his emergency room visits. The hemothorax was evacuated using rongeur pickups. No active bleeding was noted. In addition a loculated serosanguineous fluid collection was noted above the diaphragm. This was opened and the fluid removed. The chest was irrigated with 2 L of warm saline solution. Two 32 [place] chest tubes were placed, one anteriorly and one posteriorly. The ribs were reapproximated using #1 Vicryl sutures. The serratus anterior muscle group, latissimus dorsi muscle group and subcutaneous tissues were reapproximated using running Vicryl sutures. The skin edges were reapproximated using dylan. Sterile dressings were applied to the incision. The patient was transferred to the ICU in satisfactory postoperative condition. There were no intraoperative complications, and instrument, needle, and sponge count were correct at the end of operation.
[2017-11-11] MEDS ORDERED: Potassium Phosphate 44 MEQ in 0.9 % Sodium Chloride 250 ML IVPB PRN (00:40)
[2017-11-11] MEDS ORDERED: Dexmedetomidine HCl 400 MCG/100 ML MLS IVC ONE (00:42)
[2017-11-11] MEDS ORDERED: 0.9 % Sodium Chloride 1,000 ML IVC SCH (00:45)
[2017-11-11] MEDS ORDERED: Albumin Human 5% 25.0 GM/500 ML VIAL ONE ×2 (01:21→14:43)
[2017-11-11] MEDS ORDERED: Piperacillin/Tazobactam 3.375 GM in D5% in Water (Mini-Bag+) 100 ML IVPB SCH (01:24)
[2017-11-11] MEDS ORDERED: Lacri-Lube 3.5 GM TUBE BOTH EYES PRN (01:28)
--- NOTE | 2017-11-11 01:49 | Event Note ---
Date of Encounter: 11/11/17 Time of Encounter: 01:47 Patient taken to surgery and evacuation of hematoma in the right chest cavity. Remains intubated post surgery. Also developed swelling in oral cavity concerning for angioedema. Ventilator management orders placed. Will also give Solu-Medrol. Given leukocytosis and requiring intubation, will place patient on IV antibiotics. Has been hypotensive since coming to the ICU. Will monitor blood pressure closely. Check lactic acid level. Volume repletion. If remains hypotensive, consider pressors.
[2017-11-11] MEDS: Albuterol 2.5 MG/3 ML NEBULIZER IH SCH ×3 (01:52→07:49)
[2017-11-11 02:06] LABS: ABG Base Excess 3 mEq/L (-2 to 3); ABG HCO3 29 mEq/L (21-27); ABG Oxygen Saturation 93 % (95-98); ABG PCO2 50 mmHg (35-45); ABG PH 7.37 pH Units (7.32-7.45); ABG PO2 70 mmHg (85-104); ABG TCO2 31 mEq/L (20-26); Blood Gas Modality ASSIST CONTROL; Blood Gas PEEP 5 cm H2O; Blood Gas Respiration Rate 12; Blood Gas VT 450 cc
[2017-11-11] MEDS: Piperacillin/Tazobactam 3.375 GM/200 ML BAG IVPB SCH ×2 (02:16→10:27)
[2017-11-11] MEDS: Norepinephrine 4 MG in D5% in Water 250 ML IVC SCH (02:20)
[2017-11-11 02:22] LABS: Basophils % 0.2 %; Hematocrit 22.8 % (37.5-50.1); Hemoglobin 7.3 g/dL (12.9-16.9); Immature Granulocytes % 0.4 % (0-4); Lymphocytes # 0.7 K/mcL (0.6-4.6); Lymphocytes % 5.2 %; Mean Corpuscular Hemoglobin 28.3 pg (28.0-33.3); Mean Corpuscular Volume 88.4 fL (83.0-100.0); Mean Platelet Volume 9.1 fL (9.4-12.4); Monocytes # 1.2 K/mcL (0.0-1.3); Monocytes % 8.9 %; Neutrophils # 11.4 K/mcL (1.6-8.9); Platelet Count 213 K/mcL (140-400); Red Blood Count 2.58 M/mcL (4.19-5.50); Red Cell Distribution Width 15.5 % (11.5-14.5); Segmented Neutrophils % 85.3 %
[2017-11-11] MEDS: Dexmedetomidine HCl 400 MCG/100 ML MLS IVC SCH ×2 (02:22→23:52)
[2017-11-11 02:38] LABS: BUN/Creatinine Ratio 19 (6-26); Blood Urea Nitrogen 24 mg/dL (8-23); Calcium 7.9 mg/dL (8.6-10.3); Carbon Dioxide 27 mEq/L (23-29); Chloride 104 mEq/L (98-107); Glucose 170 mg/dL (70-105); Osmolality,Calculated 288 (280-300); Potassium 4.5 mEq/L (3.5-5.1); Sodium 135 mEq/L (136-145); eGFR For African Americans > 60 (> 60); eGFR For Non-African Americans 58 (> 60)
[2017-11-11] MEDS ORDERED: methylPREDNISolone 125 MG/2 ML VIAL IVP SCH (05:00)
[2017-11-11] MEDS ORDERED: Ipratropium/Albuterol Neb 3 ML IH SCH (05:00)
[2017-11-11] MEDS: Pantoprazole 40 MG VIAL IVP SCH (05:55)
[2017-11-11] MEDS: Lacri-Lube 3.5 GM TUBE BOTH EYES SCH ×6 (05:58→23:53)
[2017-11-11 05:59] LABS: ABG Base Excess 3 mEq/L (-2 to 3); ABG HCO3 28 mEq/L (21-27); ABG Oxygen Saturation 96 % (95-98); ABG PCO2 45 mmHg (35-45); ABG PO2 79 mmHg (85-104); ABG TCO2 29 mEq/L (20-26); Blood Gas Modality ASSIST CONTROL; Blood Gas PEEP 5 cm H2O; Blood Gas Respiration Rate 12; Blood Gas VT 450 cc
[2017-11-11] MEDS ORDERED: *HR* Heparin 5,000 UNIT/ML VIAL SQ SCH (06:00)
--- NOTE | 2017-11-11 07:04 | Pulmonology Consult Note ---
<[email or web address] page - Last Filed: 11/11/17 11:35> Date of Encounter: 11/11/17 Time of Encounter: 08:00 Assessment and Plan (1) Hemothorax on right Current Visit: Yes Status: Acute Patient had hemothorax which was successfully drained by cardio throacic surgery Plan: continue chest tube in place to suction continue management per cardio thoracic surgery (2) Angio-edema Current Visit: Yes Status: Acute Patient with Swellign of tongue, lips, and eyelids after thoracotomy in the PACU Patient reintubated for airway protection. Patient has received the following medications since admission: "albumin, normal saline, proventil, symbicort, precedex, fentanyl, heparin, solumedrol, zosyn, vancomycn, versed, zofran, rocuronium, morphine, lacrilube, and anti-inhibitorcoagulaent complex." Patient has been on lisinopril for almost a year with out issue. Patient also has a flat pink blanchable rash in his groin and petichiae on his shins Patient with no known allergies. Plan: continue to hold lisinopril Steroids changed to solumedrol 60mg IV Q8H zosyn stopped. continue to monitor Qualifiers: Encounter type: initial encounter Qualified Code(s): T78.3XXA - Angioneurotic edema, initial encounter (3) Acute and chronic respiratory failure with hypoxia Current Visit: Yes Status: Acute Secondary to hemothroax Pt c Hx of COPD Plan: Continue mechanical ventilation (4) Hypotension Current Visit: Yes Status: Acute Likely 2/2 to blood loss from hemothorax BPs have been stable overnight Plan: continue to hold hypertensive medications continue to monitor Qualifiers: Hypotension type: other hypotension type Qualified Code(s): I95.89 - Other hypotension (5) DVT (deep venous thrombosis) Current Visit: Yes Status: Acute Pt diagnosed with B/l DVTs 10/24/17 in b/l gastroc veins repeat dopplers showed L DVT had resolved and R persisted Patient had been on elequis but was held during a prior hospitalization prior to discovery of DVTs Patient unable to be fully anticoagulated 2/2 hemthorax. Per family no hx of prior IVC filter Plan: Vascular surgery consulted They consented to placing an IVC filter continue SCDs for now Qualifiers: DVT location: lower extremity Affected thrombotic vein of extremity: unspecified vein of extremity Chronicity: chronic Laterality: left Qualified Code(s): I82.502 - Chronic embolism and thrombosis of unspecified deep veins of left lower extremity (6) Atrial fibrillation Current Visit: Yes Status: Chronic Hx of a fib on elequis currently in sinus rhythm Plan: Continue to hold elequis continue rate control as needed Qualifiers: Atrial fibrillation type: chronic Qualified Code(s): I48.2 - Chronic atrial fibrillation (7) Anemia Current Visit: Yes Status: Acute Acute blood loss anemia 2/2 hemothorax hgb 7.3 today down from 7.5 repeat Hgb today was 7.9 patient was transfused 1 unit PRBC and second unit is infusing Patient was ordered 4 units PRBC and 2 units plasma Plan: continue to monitor h/h replete as needed Qualifiers: Anemia type: iron deficiency Iron deficiency anemia type: chronic blood loss Qualified Code(s): D50.0 - Iron deficiency anemia secondary to blood loss (chronic) (8) COPD (chronic obstructive pulmonary disease) Current Visit: Yes Status: Chronic Hx of COPD no acute exacerbation Plan: bronchodilators as needed on mechanical ventilation Qualifiers: COPD type: unspecified COPD Qualified Code(s): J44.9 - Chronic obstructive pulmonary disease, unspecified (9) CAD (coronary artery disease) Current Visit: Yes Status: Chronic Pt has chronically elevated troponin trop flat stable and adynamic Plan: continue tele monitoring restart home emds when able Qualifiers: Coronary Disease-Associated Artery/Lesion type: [place] artery [place] vs. transplanted heart: [place] heart Associated angina: without angina Qualified Code(s): I25.10 - Atherosclerotic heart disease of [place] coronary artery without angina pectoris History of Present Illness Consult date: 11/10/17 Requesting physician: Rosita Link Reason for consult: other (Intensive care management in patient with right sided hemothorax) Chief complaint: Hemothorax History of present illness: Mr. Johnson is a 62 year old male patient with history of coronary artery disease, atrial fibrillation, bilateral deep vein thrombosis , COPD, hypertension, recent MRSA pneumonia and bacteremia who reported to the ED c/o bleeding around his chest tube. Patient had a chest tube placed 2/2 pneumothorax. Patient had recent throacotomy and bleb resection earlier this month. course has been complicated since then by b/l DVTs, MRSA pneumonia and bacteremia. Patient was foudn to be hypotensive and to have a hemothorax. Cardio throacic surgery was consulted who performed a thoracotomy and evacuation of hematoma. Patient was noted to have facial and oral swelling in the PACU so was reintubated. patient on mechanical ventilation with precedand fentanyl. Patient has not required pressors. Patien also has a rash on his groin and shins. Past Med Surg Social Fam HX - Past Medical History Medical history: asthma, atrial fibrillation, cardiomyopathy, CHF, COPD, coronary artery disease, hyperlipidemia, hypertension Psychiatric history: anxiety - Past Surgical History Surgical History: coronary bypass (CABG), herniorrhaphy, other (Right thoracotomy with multiple bleb resections) - Social History Smoking Status: Former smoker Smokeless Tobacco Status: No Alcohol use: none Drug use: none - Family History Mother Living Status: Hx Family Cardiac Disorders: No Hx Family Respiratory Disorders: No Hx Family Cancer: No Hx Family GI Disorders: No Hx Family Endocrine Disorder: No Hx Family Neuromuscular Disorders: No Hx Family Neurologic Disorders: No Hx Family HEENT Disorders: No Hx Family Autoimmune Disorders: No Father Living Status: Hx Family Cardiac Disorders: No Hx Family Respiratory Disorders: No Hx Family Cancer: No Hx Family GI Disorders: No Hx Family Endocrine Disorder: No Hx Family Neuromuscular Disorders: No Hx Family Neurologic Disorders: No Hx Family HEENT Disorders: No Hx Family Autoimmune Disorders: No Medications and Allergies Aspirin [Adult Low Dose Aspirin EC] 81 mg PO DAILY 02/02/16 [History] Atorvastatin Calcium [Lipitor] 80 mg PO DAILY 02/02/16 [History] Nitroglycerin [Nitrostat] 0.4 mg SL AD PRN 07/30/16 [History] Amiodarone [Cordarone] 200 mg PO DAILY 04/22/17 [History] Budesonide/Formoterol 80/4.5 [Symbicort 80/4.5] 2 puff IH BID 10/05/17 [History ] Calcium Polycarbophil [Fibercon] 625 mg PO BID PRN 10/05/17 [History] Ipratropium/Albuterol Neb [Duoneb] 3 ml IH QID 10/05/17 [History] Lisinopril [Zestril] 20 mg PO DAILY 10/05/17 [History] Metoprolol [Lopressor] 12.5 mg PO BID 10/05/17 [History] Lactulose 20 gm PO DAILY PRN #30 udc 11/01/17 [Rx] Furosemide [Lasix] 40 mg PO BID 11/06/17 [History] HYDROcodone/Acet 10/325 mg [Conception 10-325 mg] 2 tab PO Q4HR PRN 7 Days #84 tablet 11/07/17 [Rx] Apixaban [Eliquis] 5 mg PO BID 11/11/17 [History] Morphine Immed Rel [Morphine Sulfate] 15 mg PO BID 11/11/17 [History] 3 Allergy/AdvReac Type Severity Reaction Status Date / Time No Known Allergies Allergy Verified 11/06/17 11:37 ROS unobtainable: due to endotracheal tube All Systems: A 10-system review of systems was performed and is negative for pertinent findings except as documented above in the HPI. Physical Examination Vital Signs: Vital Signs, Last 4 Hours Temp Pulse Resp BP Pulse Ox 11/11/17 06:00 69 19 148/61 96 11/11/17 05:24 18 130/52 97 11/11/17 05:00 72 19 130/54 97 11/11/17 04:17 73 11/11/17 04:16 68 20 127/52 97 11/11/17 04:00 100.2 F H 11/11/17 03:28 17 108/48 98 General appearance: no acute distress Eyes: nonicteric ENT: other (edematous face ) Neck: supple Auscultation: right: diminished breath sounds, rales (crackles RLL), bilateral: clear Cardiovascular: regular rate and rhythm Gastrointestinal: hypoactive bowel sounds, soft, non-tender, non-distended Integumentary: rash (petichiae shins, pink flat blanchable rash Groin) Extremities: no cyanosis Musculoskeletal: no deformities other (unable to assess due to intubation) Ventilator Settings Ventilator Settings: Ventilator Settings, Last 8 Hours Ventilator Mode A/C Ventilator Mode A/C Ventilator Mode A/C Ventilator Mode A/C Ventilator Mode A/C Ventilator Mode A/C Ventilator Mode A/C Ventilator Mode A/C Ventilator Mode A/C Ventilator Mode A/C Ventilator Mode A/C Ventilator Mode A/C Ventilator Tidal Volume 450 Setting Ventilator Tidal Volume 450 Setting Ventilator Tidal Volume 450 Setting Ventilator Tidal Volume 450 Setting Ventilator Tidal Volume 450 Setting Ventilator Tidal Volume 450 Setting Ventilator Tidal Volume 450 Setting Ventilator Tidal Volume 450 Setting Ventilator Tidal Volume 450 Setting Ventilator Tidal Volume 450 Setting Ventilator Tidal Volume 450 Setting Ventilator Tidal Volume 450 Setting Ventilator Respiratory Rate 12 Setting Ventilator Respiratory Rate 12 Setting Ventilator Respiratory Rate 12 Setting Ventilator Respiratory Rate 12 Setting Ventilator Respiratory Rate 12 Setting Ventilator Respiratory Rate 12 Setting Ventilator Respiratory Rate 12 Setting Ventilator Respiratory Rate 12 Setting Ventilator Respiratory Rate 12 Setting Ventilator Respiratory Rate 12 Setting Ventilator Respiratory Rate 12 Setting Ventilator Respiratory Rate 12 Setting Actual Respiratory Rate 19 Actual Respiratory Rate 19 Actual Respiratory Rate 19 Actual Respiratory Rate 19 Actual Respiratory Rate 17 Actual Respiratory Rate 17 Actual Respiratory Rate 18 Actual Respiratory Rate 22 Actual Respiratory Rate 21 Actual Respiratory Rate 28 Positive End Expiratory 5 Pressure Positive End Expiratory 5 Pressure Positive End Expiratory 5 Pressure Positive End Expiratory 5 Pressure Positive End Expiratory 5 Pressure Positive End Expiratory 5 Pressure Positive End Expiratory 5 Pressure Positive End Expiratory 5 Pressure Positive End Expiratory 5 Pressure Positive End Expiratory 5 Pressure Positive End Expiratory 5 Pressure Positive End Expiratory 5 Pressure Peak Inspiratory Airway 15 Pressure Peak Inspiratory Airway 17 Pressure Peak Inspiratory Airway 14 Pressure Peak Inspiratory Airway 14 Pressure Peak Inspiratory Airway 15 Pressure Peak Inspiratory Airway 14 Pressure Peak Inspiratory Airway 14 Pressure Results - Laboratory Findings CBC and BMP: 11/11/17 10:29 11/11/17 02:12 ABG ABG pH 7.40 pH Units (7.32-7.45) 11/11/17 05:55 ABG pCO2 45 mmHg (35-45) 11/11/17 05:55 ABG pO2 79 mmHg (85-104) L 11/11/17 05:55 ABG O2 Saturation 96 % (95-98) 11/11/17 05:55 PT/INR, D-dimer PT 15.6 Seconds (9.4-12.1) H 11/10/17 19:50 Abnormal lab findings: Abnormal lab results WBC 13.3 K/mcL (4.3-11.1) H 11/11/17 02:12 RBC 2.58 M/mcL (4.19-5.50) L 11/11/17 02:12 Hgb 7.3 g/dL (12.9-16.9) L 11/11/17 02:12 Hct 22.8 % (37.5-50.1) L 11/11/17 02:12 RDW 15.5 % (11.5-14.5) H 11/11/17 02:12 MPV 9.1 fL (9.4-12.4) L 11/11/17 02:12 Neutrophils # 11.4 K/mcL (1.6-8.9) H 11/11/17 02:12 PT 15.6 Seconds (9.4-12.1) H 11/10/17 19:50 ABG pO2 79 mmHg (85-104) L 11/11/17 05:55 ABG HCO3 28 mEq/L (21-27) H 11/11/17 05:55 ABG Total CO2 29 mEq/L (20-26) H 11/11/17 05:55 Sodium 135 mEq/L (136-145) L D 11/11/17 02:12 BUN 24 mg/dL (8-23) H 11/11/17 02:12 Est GFR (Non-Af Amer) 58 (> 60) L 11/11/17 02:12 Glucose 170 mg/dL (70-105) H 11/11/17 02:12 POC Glucose 113 (58-89) H 11/11/17 05:47 Calcium 7.9 mg/dL (8.6-10.3) L 11/11/17 02:12 Troponin I 0.05 ng/mL (< 0.04) H* 11/11/17 02:12 - Clinical Findings Intake & Output: Intake & Output 11/10/17 11/10/17 11/11/17 15:59 23:59 07:59 Intake Total 2050 / 2400 200 / 200 Output Total 690 / 690 Balance 2050 / 2400 -490 / -490 Weight 81 kg Consult Discharge Plan - Plan Referrals: Eleazar Kee, [employer] REPAIRER FABRICATOR [Primary Care Provider] - <Pavel Main - Last Filed: 11/11/17 13:46> Date of Encounter: 11/11/17 All Systems: A 10-system review of systems was performed and is negative for pertinent findings except as documented above in the HPI. Physical Examination Vital Signs: Vital Signs, Last 4 Hours Temp Pulse Resp BP Pulse Ox 11/11/17 12:00 75 98/46 96 11/11/17 11:43 99.9 F H 11/11/17 11:12 19 98 11/11/17 11:00 99.9 F H 72 19 97/45 97 11/11/17 10:00 74 22 130/59 97 Ventilator Settings Ventilator Settings: Ventilator Settings, Last 8 Hours Ventilator Mode A/C Ventilator Mode A/C Ventilator Mode A/C Ventilator Mode A/C Ventilator Mode A/C Ventilator Tidal Volume 450 Setting Ventilator Tidal Volume 450 Setting Ventilator Tidal Volume 450 Setting Ventilator Tidal Volume 450 Setting Ventilator Tidal Volume 450 Setting Ventilator Respiratory Rate 12 Setting Ventilator Respiratory Rate 12 Setting Ventilator Respiratory Rate 12 Setting Ventilator Respiratory Rate 12 Setting Ventilator Respiratory Rate 12 Setting Actual Respiratory Rate 20 Actual Respiratory Rate 20 Actual Respiratory Rate 19 Actual Respiratory Rate 22 Actual Respiratory Rate 21 Actual Respiratory Rate 19 Actual Respiratory Rate 28 Actual Respiratory Rate 19 Actual Respiratory Rate 19 Actual Respiratory Rate 19 Positive End Expiratory 5 Pressure Positive End Expiratory 5 Pressure Positive End Expiratory 5 Pressure Positive End Expiratory 5 Pressure Positive End Expiratory 5 Pressure Positive End Expiratory 5 Pressure Positive End Expiratory 5 Pressure Positive End Expiratory 5 Pressure Positive End Expiratory 5 Pressure Positive End Expiratory 5 Pressure Positive End Expiratory 5 Pressure Peak Inspiratory Airway 16 Pressure Peak Inspiratory Airway 14 Pressure Peak Inspiratory Airway 12 Pressure Peak Inspiratory Airway 15 Pressure Results - Laboratory Findings CBC and BMP: 11/11/17 10:29 11/11/17 02:12 ABG ABG pH 7.40 pH Units (7.32-7.45) 11/11/17 05:55 ABG pCO2 45 mmHg (35-45) 11/11/17 05:55 ABG pO2 79 mmHg (85-104) L 11/11/17 05:55 ABG O2 Saturation 96 % (95-98) 11/11/17 05:55 PT/INR, D-dimer PT 15.6 Seconds (9.4-12.1) H 11/10/17 19:50 Abnormal lab findings: Abnormal lab results WBC 13.5 K/mcL (4.3-11.1) H 11/11/17 10:29 RBC 2.82 M/mcL (4.19-5.50) L 11/11/17 10:29 Hgb 7.9 g/dL (12.9-16.9) L 11/11/17 10:29 Hct 24.4 % (37.5-50.1) L 11/11/17 10:29 RDW 15.9 % (11.5-14.5) H 11/11/17 10:29 Neutrophils # 11.4 K/mcL (1.6-8.9) H 11/11/17 02:12 PT 15.6 Seconds (9.4-12.1) H 11/10/17 19:50 ABG pO2 79 mmHg (85-104) L 11/11/17 05:55 ABG HCO3 28 mEq/L (21-27) H 11/11/17 05:55 ABG Total CO2 29 mEq/L (20-26) H 11/11/17 05:55 Sodium 135 mEq/L (136-145) L D 11/11/17 02:12 BUN 24 mg/dL (8-23) H 11/11/17 02:12 Est GFR (Non-Af Amer) 58 (> 60) L 11/11/17 02:12 Glucose 170 mg/dL (70-105) H 11/11/17 02:12 POC Glucose 195 (58-89) H 11/11/17 11:35 Lactic Acid < 0.2 mmol/L (0.5-2.2) L 11/11/17 08:51 Calcium 7.9 mg/dL (8.6-10.3) L 11/11/17 02:12 Troponin I 0.05 ng/mL (< 0.04) H* 11/11/17 02:12 - Clinical Findings Intake & Output: Intake & Output 11/10/17 11/11/17 11/11/17 23:59 07:59 15:59 Intake Total 2050 / 2400 200 / 200 Output Total 858 / 858 340 / 340 Balance 2050 / 2400 -658 / -658 -340 / -340 Weight 81 kg - Attending Attestation I examined this patient and my medical decision-making was reviewed with the Resident Physician. I agree with the documented findings, disposition and treatment plan as described except to the extent set forth below. We independently had biar-[id number]-[id number] contact with the patient Patient seen and examined at bedside Labs, radiology, chart personally reviewed. Management was reviewed during multidisciplinary critical care rounds. GIS INSTRUCTOR: He is on sedation while on vent but comfortable able to nod his head without focal deficit Pulm: Acute on chronic hypoxic hypercarbic respiratory failure with history of COPD with recent bleb resection/mechanical pleurodesis now with Duc hemothorax status post evacuation. acceptable gas exchange on vent today. Cardiothoracic monitoring pleural-based drains appreciate their evaluation and recommendations Allergy/Immunology: Noted tongue swelling and possible rash concern for possible allergic process from medication effect that happened inpatient his also had tongue swelling and eye swelling related to this patient does not have a known history of drug allergy however he did receive Zosyn over the last 24 hours which may be a culprit Cards: Blood pressure stable history of coronary artery disease and CHF we will continue to monitor this closely FEN-GI: Nothing by mouth for now PPI prophylaxis given percent Renal: Mild ELIANE urine output remains acceptable follow-up evening BMP ID: Concern for sepsis on broad-spectrum antimicrobials likely related to hemothorax with bacterial coinfection broad cultures have been obtained I have stopped the patient's Zosyn and started cefepime and Flagyl for gram-negative/ anaerobic coverage and will continue vancomycin Heme/Onc: Intrapleural hemorrhage related to chest tube placement while on anticoagulation for recent DVT. We are holding anticoagulation at present as risk of further hemorrhage remains exceptionally high we have consulted vascular surgery for placement of IVC filter. We will discuss with CT surgery about challenging with empiric heparin for anticoagulation in the next 24 hours Endo: Glucose Monitored Integ/MSK: Skin Care per routine ICU Nursing Protocol to prevent ulcers. Lines: All lines examined without evidence of infection : Dispo: Remain in ICU CODE: Fully updated at bedside
[2017-11-11] MEDS: Budesonide/Formoterol 80/4.5 MDI IH SCH ×2 (07:49→19:40)
[2017-11-11] MEDS ORDERED: Furosemide 40 MG TABLET PO SCH (08:00)
[2017-11-11] MEDS ORDERED: Acetaminophen 650 MG RECTAL SUPP RC PRN (08:42)
[2017-11-11] MEDS ORDERED: Vancomycin 1,250 MG in D5% in Water 250 ML IVPB SCH (09:00)
[2017-11-11] MEDS ORDERED: Lisinopril 20 MG TABLET PO SCH (09:00)
[2017-11-11] MEDS: Chlorhexidine Rinse 15 ML MOUTHWASH MM SCH ×2 (09:46→20:20)
[2017-11-11] MEDS: FentaNYL (PF) 1,000 MCG in 0.9 % Sodium Chloride 80 ML IVC SCH ×2 (09:46→23:51)
[2017-11-11] MEDS: *HR* Amiodarone 200 MG TABLET PO SCH (09:46)
[2017-11-11] MEDS: Vancomycin 1,250 MG in D5% in Water 250 ML IVPB SCH ×2 (10:27→22:10)
[2017-11-11 11:00] LABS: Hematocrit 24.4 % (37.5-50.1); Hemoglobin 7.9 g/dL (12.9-16.9); Mean Corpuscular HGB Conc 32.4 g/dL (31.6-35.5); Mean Corpuscular Volume 86.5 fL (83.0-100.0); Mean Platelet Volume 9.9 fL (9.4-12.4); Platelet Count 235 K/mcL (140-400); Red Blood Count 2.82 M/mcL (4.19-5.50); Red Cell Distribution Width 15.9 % (11.5-14.5)
[2017-11-11] MEDS: Ipratropium/Albuterol Neb 3 ML IH SCH ×4 (11:11→23:26)
--- NOTE | 2017-11-11 11:14 | Cardiothoracic Progress Note ---
Date of Encounter: 11/11/17 Time of Encounter: 11:11 - Assessment and plan (1) Hemothorax on right Current Visit: Yes Status: Acute The patient remained hemodynamically stable overnight. He remains intubated and sedated. There is no air leak and minimal serosanguineous chest tube output. The chest tube remained on suction. Vascular surgery will be consulted regarding possible IVC filter placement because of the history of bilateral gastrocnemius vein DVTs and the ability to completely anticoagulate the patient at this time. The assessment and plan as outlined above was discussed with the patient and/or family members who expressed understanding and agreement. All questions were answered. - Subjective Procedure(s) Performed: POD#1 S/P Right thoracotomy with evacuation of hematoma Interval history: The patient remained hemodynamically stable overnight. He remains intubated and sedated. His chest tube output is minimal. Vital Signs, Last 4 Hours Temp Pulse Resp BP Pulse Ox 11/11/17 10:00 74 22 130/59 97 11/11/17 09:33 18 97 11/11/17 09:00 74 22 130/59 97 11/11/17 08:20 94 11/11/17 08:00 81 28 137/62 94 11/11/17 07:50 20 94 11/11/17 07:43 101.1 F H Clinical Data, last 8 Hours Output, Chest Tube Drainage 40 Amount [right anterior] Output, Chest Tube Drainage 85 Amount [right anterior] Output, Chest Tube Drainage 28 Amount [Right Posterior Chest] Output, Chest Tube Drainage 130 Amount [Right Posterior Chest] Weight 11/09/17 11/10/17 11/11/17 23:59 23:59 23:59 Weight 81 kg - Physical Examination Neck: No JVD, Normal carotid pulses Cardiac: Normal S1 and S2, No Murmur, Other (Irregular rate and rhythm (atrial fibrillation).) Incision: No signs of infection, Dry/intact dressing Chest tubes: Minimal drainage, Other (No air leak) Lungs: Normal Breath Sounds, No Wheeze, Rales, Rhonchi Vascular: Normal capillary refill Extremities: No Clubbing, No Cyanosis, No Edema - Labs 11/11/17 10:29 11/11/17 02:12 Lab Results, Last 24 hours 11/11/17 11/11/17 11/11/17 02:12 02:12 02:12 WBC 13.3 H Hgb 7.3 L Hct 22.8 L Plt Count 213 Sodium 135 L D Potassium 4.5 D Chloride 104 Carbon Dioxide 27 BUN 24 H Creatinine 1.26 Glucose 170 H Calcium 7.9 L Troponin I 0.05 H* 11/11/17 10:29 WBC 13.5 H Hgb 7.9 L Hct 24.4 L Plt Count 235 Sodium Potassium Chloride Carbon Dioxide BUN Creatinine Glucose Calcium Troponin I - Imaging Chest Xray: image reviewed (No pneumothorax. Improved aeration of right lung cedillo after evacuation of hematoma) Consult Discharge Plan - Plan Referrals: Eleazar Kee, [employer] [Primary Care Provider] -
[2017-11-11] MEDS ORDERED: 0.9 % Sodium Chloride 1,000 ML ONE ×2 (13:17→13:20)
[2017-11-11] MEDS ORDERED: *HR* Heparin 10,000 UNIT/10 ML VIAL ONE (13:17)
--- NOTE | 2017-11-11 13:42 | Vascular/Endovasc Consult Note ---
Date of Encounter: 11/11/17 Time of Encounter: 13:00 Assessment and Plan (1) DVT (deep venous thrombosis) Current Visit: Yes Status: Chronic The patient has deep vein thrombosis and cannot be anticoagulated due to his recent hemothorax. He is currently sedated and intubated in the ICU. He also has COPD. He would not tolerate pulmonary embolus. Given these details, an inferior vena cava filter has been recommended. The risks, benefits and alternatives were discussed and all questions were answered. The patients is agreeable to the plan of care and wishes to proceed. Qualifiers: DVT location: lower extremity Affected thrombotic vein of extremity: unspecified vein of extremity Chronicity: chronic Laterality: left Qualified Code(s): I82.502 - Chronic embolism and thrombosis of unspecified deep veins of left lower extremity (2) Dyslipidemia Current Visit: No Status: Chronic (3) Atrial fibrillation Current Visit: Yes Status: Chronic Qualifiers: Atrial fibrillation type: chronic Qualified Code(s): I48.2 - Chronic atrial fibrillation (4) Anemia Current Visit: Yes Status: Acute Qualifiers: Anemia type: iron deficiency Iron deficiency anemia type: chronic blood loss Qualified Code(s): D50.0 - Iron deficiency anemia secondary to blood loss (chronic) (5) COPD (chronic obstructive pulmonary disease) Current Visit: Yes Status: Chronic Qualifiers: COPD type: unspecified COPD Qualified Code(s): J44.9 - Chronic obstructive pulmonary disease, unspecified - History of Present Illness Consult date: 11/11/17 Consult reason: Deep vein thrombosis, hemothorax Chief complaint: Deep vein thrombosis History of present illness: Mr. Johnson is a 62 year old male with a history of CAD, COPD, hypertension, MRSA pneumonia and atrial fibrillation. He developed a pneumothorax that occurred in September 2017. He initially was treated with chest tube placement. The patient then required a thoracotomy with multiple bleb resections. The patient was later noted to have leg swelling and underwent a venous duplex. He was found to have deep vein thrombosis. He was already anticoagulated for atrial fibrillation, so it was continued. The patient developed serousanguionous drainage at his chest tube bandage and was seen in the ER. He was evaluated and initially sent home. While at home, the patient became progressively tired and told his that he did not feel well. He was transferred to [facility] via EMS. The patient was found to have a fluid collection on CT. He underwent a thoractomy and was found to have a hemothorax. He was then transferred to the ICU intubated. Vascular surgery was consulted for further evaluation and possible inferior vena cava filter placement. Past Med Surg Social Fam HX - Past Medical History Medical history: asthma, atrial fibrillation, cardiomyopathy, CHF, COPD, coronary artery disease, hyperlipidemia, hypertension Psychiatric history: anxiety - Past Surgical History Surgical History: coronary bypass (CABG), herniorrhaphy, other (Right thoracotomy with multiple bleb resections) - Social History Smoking Status: Former smoker Smokeless Tobacco Status: No Alcohol use: none Drug use: none - Family History Mother Living Status: Hx Family Cardiac Disorders: No Hx Family Respiratory Disorders: No Hx Family Cancer: No Hx Family GI Disorders: No Hx Family Endocrine Disorder: No Hx Family Neuromuscular Disorders: No Hx Family Neurologic Disorders: No Hx Family HEENT Disorders: No Hx Family Autoimmune Disorders: No Father Living Status: Hx Family Cardiac Disorders: No Hx Family Respiratory Disorders: No Hx Family Cancer: No Hx Family GI Disorders: No Hx Family Endocrine Disorder: No Hx Family Neuromuscular Disorders: No Hx Family Neurologic Disorders: No Hx Family HEENT Disorders: No Hx Family Autoimmune Disorders: No Medications and Allergies Aspirin [Adult Low Dose Aspirin EC] 81 mg PO DAILY 02/02/16 [History] Atorvastatin Calcium [Lipitor] 80 mg PO DAILY 02/02/16 [History] Nitroglycerin [Nitrostat] 0.4 mg SL AD PRN 07/30/16 [History] Amiodarone [Cordarone] 200 mg PO DAILY 04/22/17 [History] Budesonide/Formoterol 80/4.5 [Symbicort 80/4.5] 2 puff IH BID 10/05/17 [History ] Calcium Polycarbophil [Fibercon] 625 mg PO BID PRN 10/05/17 [History] Ipratropium/Albuterol Neb [Duoneb] 3 ml IH QID 10/05/17 [History] Lisinopril [Zestril] 20 mg PO DAILY 10/05/17 [History] Metoprolol [Lopressor] 12.5 mg PO BID 10/05/17 [History] Lactulose 20 gm PO DAILY PRN #30 udc 11/01/17 [Rx] Furosemide [Lasix] 40 mg PO BID 11/06/17 [History] HYDROcodone/Acet 10/325 mg [Mcgregor 10-325 mg] 2 tab PO Q4HR PRN 7 Days #84 tablet 11/07/17 [Rx] Apixaban [Eliquis] 5 mg PO BID 11/11/17 [History] Morphine Immed Rel [Morphine Sulfate] 15 mg PO BID 11/11/17 [History] 3 Allergy/AdvReac Type Severity Reaction Status Date / Time No Known Allergies Allergy Verified 11/06/17 11:37 ROS unobtainable: due to endotracheal tube All Systems Review: A 10-system review of systems was performed and is negative for pertinent findings except as documented above in the HPI. Exam Vital Signs, Last 4 Hours Temp Pulse Resp BP Pulse Ox 11/11/17 12:00 75 98/46 96 11/11/17 11:43 99.9 F H 11/11/17 11:12 19 98 11/11/17 11:00 99.9 F H 72 19 97/45 97 11/11/17 10:00 74 22 130/59 97 General: Present: Other (Sedated and intubated) HEENT: Present: Atraumatic, Trachea midline Neck: Absent: JVD Cardiac: Present: Irregular Rhythm Lungs: Present: Normal Breath Sounds Neuro: Present: Other (sedated and intubated) Abdomen: Present: Soft Vascular: Present: Normal capillary refill, Edema (trace). Absent: Cyanosis Skin: Present: No rashes noted on visualized skin Consult Discharge Plan - Plan Referrals: Eleazar Kee CNP [Primary Care Provider] -
--- NOTE | 2017-11-11 14:22 | Invasive Diagnostic Lab Proc ---
Name: Jaylen Johnson Date of Study: 11/11/2017 Date: 1955 Ht: 173.0 in Medical Record#: [id number] Age: 62 Wt: 81 lb Gender: Male BSA: 1.95 Order #: [id number] BMI: 27.06 Physicians Performing MD: Lui Waterman MD Referring MD: Aleja Kee CNP Referring MD: Yi Blackwell MD Staff Name Position Time In Sites, Claudia RT (R) Monitor Dulce Kohli RN Web Feeder Sites, Claudia RT (R) Scrub Indications DVT, Bilateral Procedures Performed IVC FILTER PLACEMENT Pre-Procedure Checklist Informed consent is complete signed and on chart. H&P is on chart. ID band is on and ID verified with patient. Patient NPO for procedure The procedure was described for the patient and questions were answered. Blood Pressure: 108/67 ECG is on chart. Rhythm: NSR Plan of Care Patient will tolerate the procedure without complications. Adequate level of comfort will be maintained. Hemodynamics will remain stable Patient will recover from procedure without complications. Respiratory function will be maintained. Cardiac rhythm will remain stable. Patient temperature will be maintained. Patient and/or family have verbalized understanding of the procedure. Patient Education Intravenous Access Time IV Size Location DC'd Fluid/Drip Rate Units RN 13:18 PICC Line Lt upper arm 0.9NaCl 13:54 20g 1 1/4" Patent On Arrival Lt Antecubital Fentanyl 50 mcg/hr Dulce Kohli RN 13:54 Lt Antecubital Precedex 0.4 mcg/kg/h Dulce Kohli RN Allergies No Known Allergies Vital Signs Time BP Systolic BP Diastolic HR O2 Sats ASA 01:49 PM 108 67 70 98 01:46 PM 108 67 70 98 01:51 PM 104 60 68 95 01:56 PM 108 60 68 97 02:01 PM 102 58 70 96 02:06 PM 107 60 68 96 02:11 PM 99 60 75 97 Procedure Medications Time Medication Dose Units Method Route 01:47 PM Oxygen 50 % 01:48 PM fentanyl 50 mcg/hr Intravenous 01:48 PM Precedex 0.4 mcg/kg/h Intravenous 01:55 PM Lidocaine 2% 15 ml Subcutaneous Aleksandra Score Preprocedure Postprocedure Activity 0- Unable to move extremities or lift head Activity 0- Unable to move extremities or lift head Circulation 2- SBP +/= 20 points of pre-anesthetic level Circulation 2- SBP +/= 20 points of pre-anesthetic level Consciousness 1- Responds to verbal stimuli drowsy Consciousness 1- Responds to verbal stimuli drowsy O2 Saturation 1- Needs O2 inhalation to maintain O2 saturation of 90% O2 Saturation 1- Needs O2 inhalation to maintain O2 saturation of 90% Respiratory 0- Apneic requires ventilator or assisted respiration Respiratory 0- Apneic requires ventilator or assisted respiration Total Score 4 Total Score 4 Contrast: Isovue 250- 150ml Contrast Amount: 8 ml Fluoro Dose: 73 mGy Procedure Log Time Note Entered By 01:47 PM Pt arrived to [employer] 1 at 13:36 csmith 01:47 PM Howard Márquez RN Position: Monitor Time in: :47 csmith :47 PM Dulce Kohli RN Position: Web Feeder Time in: 13:47 csmith :47 PM Cami, Claudia RT (R) Position: Scrub Time in: 13:47 csmith :47 PM Hair removed from procedure site in procedure lab using clippers. Bilateral groin prepped with Chloraprep by Dulce Kohli RN, safety strap applied then patient was draped. Skin intact. csmith :47 PM Procedure start 13:47 csmith 01:48 PM 13:47 Oxygen at 50 % per mechanical ventilator by csmith 01:48 PM 13:48 fentanyl 50 mcg/hr Intravenous Given by Previously infusing Jerome Pump csmith 01:48 PM 13:48 Precedex 0.4 mcg/kg/h Intravenous Given by Previously infusing Jerome Pump csmith :49 PM Time: 13:49 Is patient comfortable and pain free?: Yes csmith 01:49 PM Time: 13:49LOC: 1 = Reflexes present/moves spontaneously csmith 01:49 PM Patient Charges- Cook Celect IVC Filter ,Tray Pack and Pulse Oximetry. csmith 01:55 PM Physician arrived 13:55 csmith 01:55 PM Time out perfomed csmith 01:55 PM No ASA required d/t no IV sedation needed (pt on gtts infusing from ICU) csmith 01:56 PM Ultrasound, Sonosite, utilized to obtain vascular access csmith 01:58 PM Access obtain and IVC Filter sheath inserted Rt Femoral vein. csmith 01:58 PM Inferiorvenacavagram performed. csmith 02:01 PM IVC Filter inserted into the inferior vena cava csmith 02:03 PM IVC Filter deployed into the inferior vena cava csmith 02:03 PM Procedure completed at 14:03 csmith 02:04 PM Sign Out completed: Radiation Dose 73 mGy Fluoro Time: 0.9 minutes. Isovue 250- 150ml contrast 8 ml given by Lui Waterman MD. Complications: None. Confirmed administered medications:Yes csmith 02:04 PM 13:55 15 ml Lidocaine 2% to right groin Subcutaneous Given By Lui Waterman MD csmith 02:05 PM Isovue 250- 150ml,1 bottle(s) used. csmith 02:05 PM Venous sheath pulled using manual compression and for 12 minutes by Claudia Almanza (Jyotsna) csmith 02:06 PM Estimated Blood Loss: minimal csmith 02:06 PM Post Blood Pressure: 102/58 csmith 02:06 PM Post EKG: NSR csmith 02:06 PM Information taught: IVC filter csmith 02:06 PM Education needs: Responsibilities of Patient in Care csmith 02:07 PM Learning barriers: Sedated csmith 02:07 PM Education methods: Verbal csmith 02:07 PM Education evaluation: Unable to do return demonstration csmith 02:06 PM HR=68 bpm, PPIJ=605/60 mmhg, SpO2=96.0 %, Resp=16 B/min 02:11 PM HR=75 bpm, NIBP=99/60 mmhg, SpO2=97.0 %, Resp=16 B/min 01:19 PM PVIStat 01:46 PM Case Start 01:46 PM Vitals capture started with the following parameters, Patient=Adult, Interval=5 min, Initial Vkohjzxb=570 mmHg, Deflation Rate=5 mmHg, Cuff placed on Left Arm 01:46 PM HR=70 bpm, QJST=126/67 mmhg, SpO2=98.0 %, Resp=23 B/min 01:51 PM HR=68 bpm, XCTD=141/60 mmhg, SpO2=95.0 %, Resp=14 B/min 01:56 PM HR=68 bpm, DPEW=234/60 mmhg, SpO2=97.0 %, Resp=16 B/min 02:01 PM HR=70 bpm, JXAA=221/58 mmhg, SpO2=96.0 %, Resp=16 B/min 02:14 PM Report given to Pk LEIJA. Pt will be taken to ICU, Room # 4 csmith 02:16 PM Patient out of room 14:16 csmith Post Procedure Information Blood Pressure: 102/58 mmHg Rhythm: NSR Post procedure instructions given Updated by Howard Márquez RN on 11/11/2017 2:16:55 PM electronically signed on 11/11/2017 2:17:19 PM with status of Final
--- NOTE | 2017-11-11 15:06 | Procedure Note ---
Date of procedure: 11/11/17 Pre-op diagnosis: Deep vein thrombosis, hemothorax, anemia Post-op diagnosis: same Procedure: Inferior vena cavagram, Celect Inferior Vena Cava Filter Placement via right common femoral vein. Direct pressure held for hemaostasis. Anesthesia: local Surgeon: Lui Waterman Was there an railways assistant present: No Estimated blood loss (cc): 1 Specimen: None Condition: stable (no complications) Disposition: ICU
[2017-11-11] MEDS: MetroNIDAZOLE 500 MG/100 ML 500 MG/100 ML BAG IVPB SCH ×2 (16:14→23:53)
[2017-11-11] MEDS: methylPREDNISolone 125 MG/2 ML VIAL IVP SCH ×2 (16:14→23:53)
[2017-11-11] MEDS: Cefepime HCl 2,000 MG in Water for inj. (sterile) 20 ML 10 ML IVPB SCH (18:09)
[2017-11-12] MEDS: Ipratropium/Albuterol Neb 3 ML IH SCH ×5 (03:22→20:19)
[2017-11-12 03:25] LABS: Basophils % 0.1 %; Hematocrit 20.6 % (37.5-50.1); Hemoglobin 6.5 g/dL (12.9-16.9); Immature Granulocytes % 0.6 % (0-4); Lymphocytes # 0.5 K/mcL (0.6-4.6); Lymphocytes % 4.3 %; Mean Corpuscular HGB Conc 31.6 g/dL (31.6-35.5); Mean Corpuscular Hemoglobin 27.5 pg (28.0-33.3); Mean Corpuscular Volume 87.3 fL (83.0-100.0); Mean Platelet Volume 9.9 fL (9.4-12.4); Monocytes # 0.4 K/mcL (0.0-1.3); Neutrophils # 11.6 K/mcL (1.6-8.9); Platelet Count 200 K/mcL (140-400); Red Blood Count 2.36 M/mcL (4.19-5.50); Red Cell Distribution Width 16.3 % (11.5-14.5)
[2017-11-12 03:28] LABS: VBG Ionized Calcium 1.24 mmol/L (1.15-1.35); VBG PH 7.36 pH Units (7.32-7.42)
[2017-11-12 03:37] LABS: BUN/Creatinine Ratio 30 (6-26); Blood Urea Nitrogen 27 mg/dL (8-23); Calcium 8.6 mg/dL (8.6-10.3); Carbon Dioxide 26 mEq/L (23-29); Chloride 104 mEq/L (98-107); Glucose 187 mg/dL (70-105); Magnesium 1.8 mg/dL (1.6-2.6); Osmolality,Calculated 294 (280-300); Phosphorous 3.5 mg/dL (2.7-4.5); Potassium 4.3 mEq/L (3.5-5.1); Sodium 137 mEq/L (136-145); eGFR For African Americans > 60 (> 60); eGFR For Non-African Americans > 60 (> 60)
[2017-11-12] MEDS: Lacri-Lube 3.5 GM TUBE BOTH EYES SCH ×2 (04:13→21:00)
[2017-11-12] MEDS: FentaNYL (PF) 1,000 MCG in 0.9 % Sodium Chloride 80 ML IVC SCH (04:13)
[2017-11-12 04:15] LABS: ABG Base Excess 1 mEq/L (-2 to 3); ABG HCO3 26 mEq/L (21-27); ABG Oxygen Saturation 99 % (95-98); ABG PCO2 42 mmHg (35-45); ABG PO2 122 mmHg (85-104); ABG TCO2 27 mEq/L (20-26); Blood Gas Modality ASSIST CONTROL; Blood Gas PEEP 5 cm H2O; Blood Gas Respiration Rate 12; Blood Gas VT 450 cc
[2017-11-12] MEDS: Cefepime HCl 2,000 MG in Water for inj. (sterile) 20 ML 10 ML IVPB SCH ×2 (04:28→18:22)
[2017-11-12] MEDS: Pantoprazole 40 MG VIAL IVP SCH (04:28)
[2017-11-12] MEDS ORDERED: 0.9 % Sodium Chloride 250 ML ONE ×2 (06:02→08:34)
[2017-11-12] MEDS: Dexmedetomidine HCl 400 MCG/100 ML MLS IVC SCH (06:40)
--- NOTE | 2017-11-12 06:54 | Pulmonology Progress Note ---
Date of Encounter: 11/12/17 Time of Encounter: 06:54 Assessment and Plan (1) Acute and chronic respiratory failure with hypoxia Current Visit: Yes Status: Acute This is multifactorial including recent hemothorax status post evacuation and chest tube placement underlying CHF and COPD. Stable gas exchange and then today. Blood for spontaneous breathing trial/CPAP trial with plan for extubation to positive airway pressure. This will be done after assessment of cuff leak because of recent upper airway swelling. (2) Sepsis Current Visit: Yes Status: Acute Concern for infection with recent hemothorax being covered broadly for history of MRSA and possible pleural space infection (with pleural drain in place) planned to de-escalate in next 24-48 hours culture and clinical course white count is trending down Qualifiers: Qualified Code(s): A41.9 - Sepsis, unspecified organism (3) Chronic systolic CHF (congestive heart failure) Current Visit: No Status: Chronic (4) Spontaneous pneumothorax Current Visit: No Status: Acute History of recent mechanical pleurodesis and bleb resection for spontaneous pneumothorax with severe underlying bullous lung disease. CT surgery is managing his chest tube is in place without air leak today (5) COPD (chronic obstructive pulmonary disease) Current Visit: Yes Status: Chronic Continue bronchodilators do not think he is having an exacerbation of airways disease Qualifiers: COPD type: unspecified COPD Qualified Code(s): J44.9 - Chronic obstructive pulmonary disease, unspecified (6) DVT (deep venous thrombosis) Current Visit: Yes Status: Chronic Patient had recent DVT with acute hemorrhage/hemothorax he was on a NOAC which was held and he was given product for reversal prior to operation. The risk of ongoing bleeding outweighs risk of DVT treatment/prevention and an IVC filter was placed yesterday we will continue to evaluate daily for resumption of anticoagulation Qualifiers: DVT location: lower extremity Affected thrombotic vein of extremity: unspecified vein of extremity Chronicity: chronic Laterality: left Qualified Code(s): I82.502 - Chronic embolism and thrombosis of unspecified deep veins of left lower extremity (7) Hemothorax on right Current Visit: Yes Status: Acute Status post evacuation by CTS. slightly drop in H&H overnight plan to transfuse blood products today and trend H&H every 6 hours patient has remained hemodynamically stable coags are within normal limits (8) Angio-edema Current Visit: Yes Status: Acute His possible patient had angioedema versus allergic reaction to medication fortunately he has received several medications at the same time and it is unclear which one caused upper airway swelling. I have held the beta-lactam Zosyn for this reason it is also possible is related to use of lisinopril this clearly cannot be definitively confirmed but this medication has been held as well. Clinically patient is doing much better have stopped his systemic steroids Qualifiers: Encounter type: initial encounter Qualified Code(s): T78.3XXA - Angioneurotic edema, initial encounter Subjective Principal diagnosis: Hemothorax Interval history: Hemodynamically stable overnight. Urine output has increased. He did have evidence of drop of H&H which was relatively mild he is receiving 2 units of PRBCs for hemoglobin less than 7. He is comfortably sedated on the vent as he is in no distress. Objective PUL Vital signs: Last Vital Signs Temp 97.9 F 11/12/17 03:24 Pulse 56 11/12/17 06:00 Resp 19 11/12/17 06:00 BP 124/52 11/12/17 06:00 Pulse Ox 97 11/12/17 06:00 General appearance: no acute distress Eyes: nonicteric ENT: other (Swelling of eyes and lips has normalized over the last 24 hours) Auscultation: right: diminished breath sounds, bilateral: rales Cardiovascular: regular rate and rhythm Gastrointestinal: normoactive bowel sounds Integumentary: other (No further evidence of rash/patchy erythema) Extremities: edema non-focal exam, pupils equal and round mood appropriate Ventilator Settings Ventilator Settings: Ventilator Settings, Last 8 Hours Ventilator Mode A/C Ventilator Mode A/C Ventilator Mode A/C Ventilator Mode A/C Ventilator Mode A/C Ventilator Mode A/C Ventilator Mode A/C Ventilator Mode A/C Ventilator Mode A/C Ventilator Mode A/C Ventilator Mode A/C Ventilator Mode A/C Ventilator Mode A/C Ventilator Tidal Volume 450 Setting Ventilator Tidal Volume 450 Setting Ventilator Tidal Volume 450 Setting Ventilator Tidal Volume 450 Setting Ventilator Tidal Volume 450 Setting Ventilator Tidal Volume 450 Setting Ventilator Tidal Volume 450 Setting Ventilator Tidal Volume 450 Setting Ventilator Tidal Volume 450 Setting Ventilator Tidal Volume 450 Setting Ventilator Tidal Volume 450 Setting Ventilator Tidal Volume 450 Setting Ventilator Tidal Volume 450 Setting Ventilator Respiratory Rate 12 Setting Ventilator Respiratory Rate 12 Setting Ventilator Respiratory Rate 12 Setting Ventilator Respiratory Rate 12 Setting Ventilator Respiratory Rate 12 Setting Ventilator Respiratory Rate 12 Setting Ventilator Respiratory Rate 12 Setting Ventilator Respiratory Rate 12 Setting Ventilator Respiratory Rate 12 Setting Ventilator Respiratory Rate 12 Setting Ventilator Respiratory Rate 12 Setting Ventilator Respiratory Rate 12 Setting Ventilator Respiratory Rate 12 Setting Actual Respiratory Rate 19 Actual Respiratory Rate 19 Actual Respiratory Rate 19 Actual Respiratory Rate 23 Actual Respiratory Rate 19 Actual Respiratory Rate 19 Actual Respiratory Rate 19 Actual Respiratory Rate 23 Actual Respiratory Rate 23 Actual Respiratory Rate 19 Actual Respiratory Rate 23 Positive End Expiratory 5 Pressure Positive End Expiratory 5 Pressure Positive End Expiratory 5 Pressure Positive End Expiratory 5 Pressure Positive End Expiratory 5 Pressure Positive End Expiratory 5 Pressure Positive End Expiratory 5 Pressure Positive End Expiratory 5 Pressure Positive End Expiratory 5 Pressure Positive End Expiratory 5 Pressure Positive End Expiratory 5 Pressure Positive End Expiratory 5 Pressure Positive End Expiratory 5 Pressure Peak Inspiratory Airway 20 Pressure Peak Inspiratory Airway 20 Pressure Peak Inspiratory Airway 20 Pressure Peak Inspiratory Airway 16 Pressure Peak Inspiratory Airway 17 Pressure Peak Inspiratory Airway 22 Pressure Peak Inspiratory Airway 22 Pressure Peak Inspiratory Airway 22 Pressure Peak Inspiratory Airway 16 Pressure Peak Inspiratory Airway 22 Pressure Peak Inspiratory Airway 17 Pressure Peak Inspiratory Airway 23 Pressure Results - Laboratory Findings CBC and BMP: 11/12/17 10:16 11/12/17 03:03 ABG ABG pH 7.40 pH Units (7.32-7.45) 11/12/17 04:11 ABG pCO2 42 mmHg (35-45) 11/12/17 04:11 ABG pO2 122 mmHg (85-104) H 11/12/17 04:11 ABG O2 Saturation 99 % (95-98) H 11/12/17 04:11 PT/INR, D-dimer PT 15.6 Seconds (9.4-12.1) H 11/10/17 19:50 Abnormal lab findings: Abnormal lab results WBC 12.6 K/mcL (4.3-11.1) H 11/12/17 03:03 RBC 2.36 M/mcL (4.19-5.50) L 11/12/17 03:03 Hgb 6.5 g/dL (12.9-16.9) L 11/12/17 03:03 Hct 20.6 % (37.5-50.1) L 11/12/17 03:03 MCH 27.5 pg (28.0-33.3) L 11/12/17 03:03 RDW 16.3 % (11.5-14.5) H 11/12/17 03:03 Neutrophils # 11.6 K/mcL (1.6-8.9) H 11/12/17 03:03 Lymphocytes # 0.5 K/mcL (0.6-4.6) L 11/12/17 03:03 PT 15.6 Seconds (9.4-12.1) H 11/10/17 19:50 ABG pO2 122 mmHg (85-104) H 11/12/17 04:11 ABG Total CO2 27 mEq/L (20-26) H 11/12/17 04:11 ABG O2 Saturation 99 % (95-98) H 11/12/17 04:11 BUN 27 mg/dL (8-23) H 11/12/17 03:03 BUN/Creatinine Ratio 30 (6-26) H 11/12/17 03:03 Glucose 187 mg/dL (70-105) H 11/12/17 03:03 POC Glucose 217 (58-89) H 11/12/17 05:38 Lactic Acid < 0.2 mmol/L (0.5-2.2) L 11/11/17 08:51 Troponin I 0.05 ng/mL (< 0.04) H* 11/11/17 02:12 - Microbiology Findings Microbiology Findings: Microbiology, Last 48 Hours 11/11/17 08:51 Blood Culture - Preliminary Central Venous Catheter No growth. - Diagnostic Findings Chest x-ray: report reviewed, image reviewed - Clinical Findings Intake & Output: Intake & Output 11/11/17 11/11/17 11/12/17 15:59 23:59 07:59 Intake Total 1560 / 1560 630 / 630 Output Total 508 / 508 565 / 565 250 / 250 Balance -508 / -508 995 / 995 380 / 380 Weight 81.6 kg Consult Discharge Plan - Plan Referrals: Eleazar Kee, PATIENT CARE PROVIDER [Primary Care Provider] -
[2017-11-12] MEDS: Budesonide/Formoterol 80/4.5 MDI IH SCH ×2 (07:28→20:19)
[2017-11-12] MEDS: Chlorhexidine Rinse 15 ML MOUTHWASH MM SCH ×2 (08:35→21:01)
[2017-11-12] MEDS: methylPREDNISolone 125 MG/2 ML VIAL IVP SCH (08:36)
[2017-11-12] MEDS: MetroNIDAZOLE 500 MG/100 ML 500 MG/100 ML BAG IVPB SCH ×2 (08:36→16:06)
[2017-11-12] MEDS ORDERED: Aminoglycoside Consult 1 EACH MC ONE (08:47)
--- NOTE | 2017-11-12 08:48 | Cardiothoracic Progress Note ---
Date of Encounter: 11/12/17 Time of Encounter: 08:46 - Assessment and plan (1) Hemothorax on right Current Visit: Yes Status: Acute The patient remained hemodynamically stable overnight. He remains intubated and sedated. There is no air leak and minimal serosanguineous chest tube output. The chest tube remained on suction. An attempt to extubate the patient will be made later today. The assessment and plan as outlined above was discussed with the patient and/or family members who expressed understanding and agreement. All questions were answered. - Subjective Procedure(s) Performed: POD#2 S/P Right thoracotomy with evacuation of hematoma Interval history: The patient remained hemodynamically stable overnight. He remains intubated, but is awake and appropriate. His chest tube output is minimal. Vital Signs, Last 4 Hours Temp Pulse Resp BP Pulse Ox 11/12/17 07:27 19 124/52 97 11/12/17 07:00 97.6 F 11/12/17 06:00 56 19 124/52 97 11/12/17 05:37 19 119/48 97 11/12/17 05:00 57 16 121/50 97 Clinical Data, last 8 Hours Output, Chest Tube Drainage 0 Amount [right anterior] Output, Chest Tube Drainage 0 Amount [right anterior] Output, Chest Tube Drainage 170 Amount [Right Posterior Chest] Output, Chest Tube Drainage 50 Amount [Right Posterior Chest] Weight 11/10/17 11/11/17 11/12/17 23:59 23:59 23:59 Weight 81 kg 81.6 kg - Physical Examination General: No Apparent Distress HEENT: Atraumatic, Normocephaly, Trachea midline Neck: No JVD, Normal carotid pulses Cardiac: Normal S1 and S2, No Murmur, Other (Irregular rate and rhythm (atrial fibrillation)) Incision: No signs of infection, Dry/intact dressing Chest tubes: Minimal drainage, Other (No airleak) Lungs: Normal Breath Sounds, No Wheeze, Rales, Rhonchi Neuro: Alert and responsive, No focal deficits noted Vascular: Normal capillary refill Extremities: No Clubbing, No Cyanosis, No Edema - Labs 11/12/17 03:03 11/12/17 03:03 Lab Results, Last 24 hours 11/11/17 11/12/17 11/12/17 10:29 03:03 03:03 WBC 13.5 H 12.6 H Hgb 7.9 L 6.5 L Hct 24.4 L 20.6 L Plt Count 235 200 Sodium 137 Potassium 4.3 Chloride 104 Carbon Dioxide 26 BUN 27 H Creatinine 0.91 Glucose 187 H Calcium 8.6 Magnesium 1.8 - Imaging Chest Xray: image reviewed (No pneumothorax. Right lower lobe infiltrates.) Consult Discharge Plan - Plan Referrals: Eleazar Kee CNP [Primary Care Provider] -
[2017-11-12 09:45] LABS: Vancomycin,Trough 15.9 mcg/mL (10-20)
[2017-11-12 09:56] LABS: Magnesium 2.1 mg/dL (1.6-2.6)
[2017-11-12 10:44] LABS: Hematocrit 23.3 % (37.5-50.1); Hemoglobin 7.4 g/dL (12.9-16.9)
[2017-11-12 10:51] LABS: INR 1.2; Prothrombin Time 12.7 Seconds (9.4-12.1)
[2017-11-12] MEDS ORDERED: Furosemide 40 MG/4 ML VIAL IVP ONE (11:47)
[2017-11-12] MEDS: *HR* Amiodarone 200 MG TABLET PO SCH (11:55)
[2017-11-12] MEDS: Vancomycin 1,250 MG in D5% in Water 250 ML IVPB SCH ×2 (11:57→22:52)
[2017-11-12] MEDS: *HR* HYDROcodone/Acet 10/325 mg TABLET PO PRN ×3 (12:18→20:41)
[2017-11-12] MEDS ORDERED: *HR* Metoprolol 5 MG/5 ML VIAL IVP ONE (12:27)
[2017-11-12 16:01] LABS: Hematocrit 25.7 % (37.5-50.1); Hemoglobin 8.6 g/dL (12.9-16.9)
[2017-11-12] MEDS: hydrALAZINE 25 MG TABLET PO SCH ×2 (16:05→22:51)
[2017-11-12] MEDS: Norepinephrine 4 MG in D5% in Water 250 ML IVC SCH (20:58)
[2017-11-13] MEDS: Ipratropium/Albuterol Neb 3 ML IH SCH ×7 (00:34→23:39)
[2017-11-13] MEDS: MetroNIDAZOLE 500 MG/100 ML 500 MG/100 ML BAG IVPB SCH ×2 (00:37→08:38)
[2017-11-13] MEDS: Lacri-Lube 3.5 GM TUBE BOTH EYES SCH ×2 (00:38→03:40)
[2017-11-13] MEDS: *HR* HYDROcodone/Acet 10/325 mg TABLET PO PRN ×5 (00:38→20:34)
[2017-11-13] MEDS: Norepinephrine 4 MG in D5% in Water 250 ML IVC SCH (03:39)
[2017-11-13 04:25] LABS: Basophils % 0.1 %; Hematocrit 25.5 % (37.5-50.1); Hemoglobin 8.3 g/dL (12.9-16.9); Immature Granulocytes % 0.9 % (0-4); Lymphocytes # 0.4 K/mcL (0.6-4.6); Lymphocytes % 2.3 %; Mean Corpuscular HGB Conc 32.5 g/dL (31.6-35.5); Mean Corpuscular Volume 86.1 fL (83.0-100.0); Mean Platelet Volume 10.2 fL (9.4-12.4); Monocytes # 0.9 K/mcL (0.0-1.3); Monocytes % 4.7 %; Neutrophils # 17.1 K/mcL (1.6-8.9); Platelet Count 181 K/mcL (140-400); Red Blood Count 2.96 M/mcL (4.19-5.50); Red Cell Distribution Width 17.1 % (11.5-14.5)
[2017-11-13] MEDS: Cefepime HCl 2,000 MG in Water for inj. (sterile) 20 ML 10 ML IVPB SCH ×2 (04:32→18:10)
[2017-11-13] MEDS: Pantoprazole 40 MG VIAL IVP SCH (04:32)
[2017-11-13 04:48] LABS: Chloride 106 mEq/L (98-107); Potassium 4.1 mEq/L (3.5-5.1); Sodium 136 mEq/L (136-145)
[2017-11-13 05:05] LABS: BUN/Creatinine Ratio 40 (6-26); Blood Urea Nitrogen 36 mg/dL (8-23); Calcium 8.3 mg/dL (8.6-10.3); Carbon Dioxide 20 mEq/L (23-29); Glucose 145 mg/dL (70-105); Osmolality,Calculated 293 (280-300); Phosphorous 3.1 mg/dL (2.7-4.5); eGFR For African Americans > 60 (> 60); eGFR For Non-African Americans > 60 (> 60)
[2017-11-13] MEDS: *HR* Amiodarone 200 MG TABLET PO SCH (08:39)
[2017-11-13] MEDS: *HR* Morphine 2 MG/ML SYRINGE IVP PRN ×5 (08:40→20:43)
--- NOTE | 2017-11-13 09:41 | Cardiothoracic Progress Note ---
Date of Encounter: 11/13/17 Time of Encounter: 09:39 - Assessment and plan (1) Hemothorax on right Current Visit: Yes Status: Acute The patient remained hemodynamically stable overnight. He was extubated yesterday and is breathing comfortably with supplemental oxygen. There is no air leak and minimal serosanguineous chest tube output. The chest tube remains on suction. The patient will be monitored in the ICU today. The assessment and plan as outlined above was discussed with the patient and/or family members who expressed understanding and agreement. All questions were answered. - Subjective Procedure(s) Performed: POD#3 S/P Right thoracotomy with evacuation of hematoma Interval history: The patient remained hemodynamically stable overnight. He was extubated yesterday and is breathing comfortably with supplemental oxygen. His chest tube output is minimal. Vital Signs, Last 4 Hours Temp Pulse Resp BP Pulse Ox 11/13/17 09:10 92 16 150/83 92 11/13/17 08:30 98.3 F 91 18 151/95 92 11/13/17 07:44 98.3 F 11/13/17 07:00 86 18 137/90 92 11/13/17 06:11 75 18 139/71 94 Oxgyen Flow Rate Oxygen Flow Rate (LPM) 4 Clinical Data, last 8 Hours Output, Chest Tube Drainage 0 Amount [right anterior] Output, Chest Tube Drainage 0 Amount [right anterior] Output, Chest Tube Drainage 0 Amount [Right Posterior Chest] Output, Chest Tube Drainage 0 Amount [Right Posterior Chest] Output, Chest Tube Drainage 40 Amount [Right Posterior Chest] Weight 11/11/17 11/12/17 11/13/17 23:59 23:59 23:59 Weight 81 kg 81.6 kg 80.5 kg - Physical Examination General: Conversant, No Apparent Distress Neck: No JVD, Normal carotid pulses Cardiac: Normal S1 and S2, No Murmur, Other (Irregular rate and rhythm (atrial fibrillation)) Incision: No signs of infection, Dry/intact dressing Chest tubes: Minimal drainage, Other (No air leak) Lungs: Normal Breath Sounds, No Wheeze, Rales, Rhonchi Neuro: Alert and responsive, No focal deficits noted Vascular: Normal capillary refill Extremities: No Clubbing, No Cyanosis, No Edema - Labs 11/13/17 03:51 11/13/17 03:51 Lab Results, Last 24 hours 11/12/17 11/12/17 11/12/17 08:56 10:16 10:16 WBC Hgb 7.4 L Hct 23.3 L Plt Count INR 1.2 Sodium Potassium Chloride Carbon Dioxide BUN Creatinine Glucose Calcium Magnesium 2.1 11/12/17 11/12/17 11/13/17 10:16 15:42 03:51 WBC 18.6 H Hgb 8.6 L 8.3 L Hct 25.7 L 25.5 L Plt Count 181 INR Sodium Potassium Chloride Carbon Dioxide BUN Creatinine Glucose Calcium Magnesium 2.1 11/13/17 03:51 WBC Hgb Hct Plt Count INR Sodium 136 Potassium 4.1 Chloride 106 Carbon Dioxide 20 L BUN 36 H Creatinine 0.89 Glucose 145 H Calcium 8.3 L Magnesium 2.0 - Imaging Chest Xray: image reviewed (Normal cardiac size. Small right basilar/lateral pneumothorax. Improved aeration in the right lower lobe.) Consult Discharge Plan - Plan Referrals: Eleazar Kee, RECREATION CENTER DIRECTOR [Primary Care Provider] -
[2017-11-13 09:47] LABS: VBG HCO3 25 mEq/L (21-27); VBG PCO2 37 mmHg (41-51); VBG PH 7.45 pH Units (7.32-7.42); VBG PO2 184 mmHg (25-50)
--- NOTE | 2017-11-13 09:47 | Pulmonology Progress Note ---
<Usman Desir - Last Filed: 11/13/17 13:31> Date of Encounter: 11/13/17 Time of Encounter: 09:46 Assessment and Plan (1) Hemothorax on right Current Visit: Yes Status: Acute Patient had hemothorax which was successfully drained by cardio throacic surgery Plan: continue chest tube in place to suction continue management per cardio thoracic surgery (2) Angio-edema Current Visit: Yes Status: Acute Resolved Patient with Swellign of tongue, lips, and eyelids after thoracotomy in the PACU Patient reintubated for airway protection. Patient has received the following medications since admission: "albumin, normal saline, proventil, symbicort, precedex, fentanyl, heparin, solumedrol, zosyn, vancomycn, versed, zofran, rocuronium, morphine, lacrilube, and anti-inhibitorcoagulaent complex." Patient has been on lisinopril for almost a year with out issue. Patient also has a flat pink blanchable rash in his groin and petichiae on his shins Patient with no known allergies. zosyn stopped. Plan: continue to hold lisinopril continue to monitor Qualifiers: Encounter type: initial encounter Qualified Code(s): T78.3XXA - Angioneurotic edema, initial encounter (3) Acute and chronic respiratory failure with hypoxia Current Visit: Yes Status: Acute Resolved likely 2/2 to angiodema and underlying CHF and COPD Patient off mechanical ventilation Patient on 4L NC (4) DVT (deep venous thrombosis) Current Visit: Yes Status: Chronic Pt diagnosed with B/l DVTs 10/24/17 in b/l gastroc veins repeat dopplers showed L DVT had resolved and R persisted Patient had been on elequis but was held during a prior hospitalization prior to discovery of DVTs Patient unable to be fully anticoagulated 2/2 hemthorax. Pt had IVC filter placed over the weekend Plan: pt with IVC filter continue SCDs Qualifiers: DVT location: lower extremity Affected thrombotic vein of extremity: unspecified vein of extremity Chronicity: chronic Laterality: left Qualified Code(s): I82.502 - Chronic embolism and thrombosis of unspecified deep veins of left lower extremity (5) Atrial fibrillation Current Visit: Yes Status: Chronic Hx of a fib on elequis currently in a fib Plan: Continue to hold elequis increased lopressor to 25BID from 12.5BID continue rate control as needed Qualifiers: Atrial fibrillation type: chronic Qualified Code(s): I48.2 - Chronic atrial fibrillation (6) Anemia Current Visit: Yes Status: Acute Acute blood loss anemia 2/2 hemothorax hgb 8.9 today from 8.6 patient was transfused 4 units PRBC transfused Plan: continue to monitor h/h replete as needed Qualifiers: Anemia type: iron deficiency Iron deficiency anemia type: chronic blood loss Qualified Code(s): D50.0 - Iron deficiency anemia secondary to blood loss (chronic) (7) COPD (chronic obstructive pulmonary disease) Current Visit: Yes Status: Chronic Hx of COPD not currently in acute exacerbation Plan: continue albuterol and symbicort Qualifiers: COPD type: unspecified COPD Qualified Code(s): J44.9 - Chronic obstructive pulmonary disease, unspecified (8) CAD (coronary artery disease) Current Visit: Yes Status: Chronic Pt has chronically elevated troponin trop flat stable and adynamic Plan: continue tele monitoring continue home meds Qualifiers: Coronary Disease-Associated Artery/Lesion type: [place] artery [place] vs. transplanted heart: [place] heart Associated angina: without angina Qualified Code(s): I25.10 - Atherosclerotic heart disease of [place] coronary artery without angina pectoris (9) Chronic systolic CHF (congestive heart failure) Current Visit: No Status: Chronic Hx of Systollic CHF Plan: continue home lasix (10) Spontaneous pneumothorax Current Visit: No Status: Acute History of recent mechanical pleurodesis and bleb resection for spontaneous pneumothorax with severe underlying bullous lung disease. CT surgery is managing his chest tube is in place without air leak today Subjective Principal diagnosis: Hemothorax Interval history: Patient extubated successfully yesterday. Patient doing much better today. Swelling of face and lips resolved. Objective PUL Vital signs: Last Vital Signs Temp 98.3 F 11/13/17 08:30 Pulse 92 11/13/17 09:10 Resp 16 11/13/17 09:10 BP 150/83 11/13/17 09:10 Pulse Ox 92 11/13/17 09:10 General appearance: no acute distress Eyes: nonicteric ENT: oropharynx moist Neck: supple Effort: normal Auscultation: right: diminished breath sounds, bilateral: clear Cardiovascular: irregular rhythm Gastrointestinal: normoactive bowel sounds, soft, non-tender, non-distended Integumentary: rash (imrpoved) Extremities: no cyanosis Musculoskeletal: no deformities normal mental status, non-focal exam Results - Laboratory Findings CBC and BMP: 11/13/17 09:24 11/13/17 03:51 ABG ABG pH 7.40 pH Units (7.32-7.45) 11/12/17 04:11 ABG pCO2 42 mmHg (35-45) 11/12/17 04:11 ABG pO2 122 mmHg (85-104) H 11/12/17 04:11 ABG O2 Saturation 99 % (95-98) H 11/12/17 04:11 PT/INR, D-dimer PT 12.7 Seconds (9.4-12.1) H 11/12/17 10:16 Abnormal lab findings: Abnormal lab results WBC 18.6 K/mcL (4.3-11.1) H 11/13/17 03:51 RBC 2.96 M/mcL (4.19-5.50) L 11/13/17 03:51 Hgb 8.3 g/dL (12.9-16.9) L 11/13/17 03:51 Hct 25.5 % (37.5-50.1) L 11/13/17 03:51 RDW 17.1 % (11.5-14.5) H 11/13/17 03:51 Neutrophils # 17.1 K/mcL (1.6-8.9) H 11/13/17 03:51 Lymphocytes # 0.4 K/mcL (0.6-4.6) L 11/13/17 03:51 PT 12.7 Seconds (9.4-12.1) H 11/12/17 10:16 ABG pO2 122 mmHg (85-104) H 11/12/17 04:11 ABG Total CO2 27 mEq/L (20-26) H 11/12/17 04:11 ABG O2 Saturation 99 % (95-98) H 11/12/17 04:11 Carbon Dioxide 20 mEq/L (23-29) L 11/13/17 03:51 BUN 36 mg/dL (8-23) H 11/13/17 03:51 BUN/Creatinine Ratio 40 (6-26) H 11/13/17 03:51 Glucose 145 mg/dL (70-105) H 11/13/17 03:51 POC Glucose 217 (58-89) H 11/12/17 05:38 Lactic Acid < 0.2 mmol/L (0.5-2.2) L 11/11/17 08:51 Calcium 8.3 mg/dL (8.6-10.3) L 11/13/17 03:51 Troponin I 0.05 ng/mL (< 0.04) H* 11/11/17 02:12 - Microbiology Findings Microbiology Findings: Microbiology, Last 48 Hours 11/11/17 10:29 Blood Culture - Preliminary Peripheral Venipuncture No growth. 11/11/17 08:51 Blood Culture - Preliminary Central Venous Catheter No growth. - Clinical Findings Intake & Output: Intake & Output 11/12/17 11/13/17 11/13/17 23:59 07:59 15:59 Intake Total 110 / 110 890 / 890 Output Total 1940 / 1940 715 / 715 0 / 0 Balance -1830 / -1830 175 / 175 0 / 0 Weight 80.5 kg Consult Discharge Plan - Plan Referrals: Eleazar Kee, ANIMAL SHELTER WORKER [Primary Care Provider] - <Jayson Zamudio - Last Filed: 11/13/17 16:36> Date of Encounter: 11/13/17 Objective PUL Vital signs: Last Vital Signs Temp 97.8 F 11/13/17 16:00 Pulse 68 11/13/17 16:00 Resp 18 11/13/17 16:00 BP 142/80 11/13/17 16:00 Pulse Ox 96 11/13/17 16:00 Results - Laboratory Findings CBC and BMP: 11/13/17 09:24 11/13/17 03:51 ABG ABG pH 7.40 pH Units (7.32-7.45) 11/12/17 04:11 ABG pCO2 42 mmHg (35-45) 11/12/17 04:11 ABG pO2 122 mmHg (85-104) H 11/12/17 04:11 ABG O2 Saturation 99 % (95-98) H 11/12/17 04:11 PT/INR, D-dimer PT 12.7 Seconds (9.4-12.1) H 11/12/17 10:16 Abnormal lab findings: Abnormal lab results WBC 18.6 K/mcL (4.3-11.1) H 11/13/17 03:51 RBC 2.96 M/mcL (4.19-5.50) L 11/13/17 03:51 Hgb 8.9 g/dL (12.9-16.9) L 11/13/17 09:24 Hct 27.5 % (37.5-50.1) L 11/13/17 09:24 RDW 17.1 % (11.5-14.5) H 11/13/17 03:51 Neutrophils # 17.1 K/mcL (1.6-8.9) H 11/13/17 03:51 Lymphocytes # 0.4 K/mcL (0.6-4.6) L 11/13/17 03:51 PT 12.7 Seconds (9.4-12.1) H 11/12/17 10:16 ABG pO2 122 mmHg (85-104) H 11/12/17 04:11 ABG Total CO2 27 mEq/L (20-26) H 11/12/17 04:11 ABG O2 Saturation 99 % (95-98) H 11/12/17 04:11 VBG pH 7.45 pH Units (7.32-7.42) H 11/13/17 09:42 VBG pCO2 37 mmHg (41-51) L 11/13/17 09:42 VBG pO2 184 mmHg (25-50) H 11/13/17 09:42 Carbon Dioxide 20 mEq/L (23-29) L 11/13/17 03:51 BUN 36 mg/dL (8-23) H 11/13/17 03:51 BUN/Creatinine Ratio 40 (6-26) H 11/13/17 03:51 Glucose 145 mg/dL (70-105) H 11/13/17 03:51 POC Glucose 217 (58-89) H 11/12/17 05:38 Lactic Acid < 0.2 mmol/L (0.5-2.2) L 11/11/17 08:51 Calcium 8.3 mg/dL (8.6-10.3) L 11/13/17 03:51 Troponin I 0.05 ng/mL (< 0.04) H* 11/11/17 02:12 - Microbiology Findings Microbiology Findings: Microbiology, Last 48 Hours 11/11/17 10:29 Blood Culture - Preliminary Peripheral Venipuncture No growth. 11/11/17 08:51 Blood Culture - Preliminary Central Venous Catheter No growth. - Clinical Findings Intake & Output: Intake & Output 11/13/17 11/13/17 11/13/17 07:59 15:59 23:59 Intake Total 890 / 890 Output Total 715 / 715 380 / 380 190 / 190 Balance 175 / 175 -380 / -380 -190 / -190 Weight 80.5 kg - Attending Attestation I examined this patient and my medical decision-making was reviewed with the Resident Physician. I agree with the documented findings, disposition and treatment plan as described except to the extent set forth below. Patient seen and examined. Labs, radiology, chart personally reviewed. Agree with resident's history and physical, assessment, plan with following comments: GLOBAL MARKETING COORDINATOR: Patient follows commands, Pulmonary: Acceptable oxygenation and ventilation. Chest tube is being managed by cardiothoracic. Since follow-up cultures has been negative I believe patient has received enough oral vancomycin. Continue incentive spirometry and patient will need physical therapy and out of bed. Cardiovascular: stable GI: Nutrition per dietary and GI prophylaxis per routine Heme: DVT prophylaxis per routine ID: Continue antibiotics and plan to de-escalation Renal; urine out put and renal funtion reviewed Endorcine: blood glucose is monitored Lines: all lines checked and no evidence of infections Skin: skin care to prevent pressure ulcers per nursing routine care Patient remain in ICU and to be transferred her to the floor when cardiothoracic agrees.
[2017-11-13 09:52] LABS: Hematocrit 27.5 % (37.5-50.1); Hemoglobin 8.9 g/dL (12.9-16.9)
[2017-11-13] MEDS ORDERED: Temazepam 15 MG CAPSULE PO PRN (10:46)
[2017-11-13] MEDS: Budesonide/Formoterol 80/4.5 MDI IH SCH ×2 (11:36→19:34)
--- NOTE | 2017-11-13 16:01 | Electrocardiograph Report ---
[address] [address] Test Date: 2017-11-10 Pat Name: Jaylen Johnson Department: 104 Room: [facility] Gender: M Financial Services Education Consultant: ALESSIO : [id number] Requested By: Alfredo Beckett Order Number: [id number] Reading MD: Alex Martinez Measurements Intervals [place] Rate: 87 P: 63 AR: 136 QRS: 64 QRSD: 86 T: 46 QT: 378 QTc: 422 Interpretive Statements SINUS RHYTHM WITH FREQUENT SUPRAVENTRICULAR PREMATURE COMPLEXES Electronically Signed On 11-13-2017 15:59:59 EST by Alex Martinez
[2017-11-14] MEDS: *HR* Morphine 2 MG/ML SYRINGE IVP PRN ×8 (00:37→23:35)
[2017-11-14] MEDS: *HR* HYDROcodone/Acet 10/325 mg TABLET PO PRN ×3 (00:44→11:12)
[2017-11-14] MEDS: Ipratropium/Albuterol Neb 3 ML IH SCH ×7 (03:47→23:30)
[2017-11-14 04:34] LABS: Basophils % 0.1 %; Hematocrit 27.4 % (37.5-50.1); Hemoglobin 8.9 g/dL (12.9-16.9); Immature Granulocytes % 0.9 % (0-4); Lymphocytes % 7.4 %; Mean Corpuscular HGB Conc 32.5 g/dL (31.6-35.5); Mean Corpuscular Hemoglobin 28.2 pg (28.0-33.3); Mean Corpuscular Volume 86.7 fL (83.0-100.0); Mean Platelet Volume 9.8 fL (9.4-12.4); Monocytes # 0.8 K/mcL (0.0-1.3); Monocytes % 6.5 %; Nucleated Red Blood Cells 0.2 /100 WBC (0); Platelet Count 209 K/mcL (140-400); Red Blood Count 3.16 M/mcL (4.19-5.50); Segmented Neutrophils % 85.1 %
[2017-11-14 04:50] LABS: BUN/Creatinine Ratio 36 (6-26); Blood Urea Nitrogen 28 mg/dL (8-23); Calcium 8.6 mg/dL (8.6-10.3); Carbon Dioxide 30 mEq/L (23-29); Chloride 105 mEq/L (98-107); Glucose 113 mg/dL (70-105); Magnesium 1.7 mg/dL (1.6-2.6); Osmolality,Calculated 292 (280-300); Phosphorous 2.3 mg/dL (2.7-4.5); Sodium 138 mEq/L (136-145); eGFR For African Americans > 60 (> 60); eGFR For Non-African Americans > 60 (> 60)
[2017-11-14] MEDS: Cefepime HCl 2,000 MG in Water for inj. (sterile) 20 ML 10 ML IVPB SCH ×2 (05:41→17:50)
[2017-11-14] MEDS: Pantoprazole 40 MG VIAL IVP SCH (05:42)
[2017-11-14 07:54] LABS: VBG HCO3 31 mEq/L (21-27); VBG PCO2 54 mmHg (41-51); VBG PH 7.37 pH Units (7.32-7.42); VBG PO2 53 mmHg (25-50)
[2017-11-14] MEDS: *HR* Amiodarone 200 MG TABLET PO SCH (07:59)
--- NOTE | 2017-11-14 08:25 | Cardiothoracic Progress Note ---
Date of Encounter: 11/14/17 Time of Encounter: 08:22 - Assessment and plan (1) Hemothorax on right Current Visit: Yes Status: Acute The patient remained hemodynamically stable overnight. He remains extubated and is breathing comfortably with supplemental oxygen. There is no air leak and minimal serosanguineous chest tube output. The chest tube remains on suction. The patient will be transferred to the stepdown unit when a bed is available. The assessment and plan as outlined above was discussed with the patient and/or family members who expressed understanding and agreement. All questions were answered. - Subjective Procedure(s) Performed: POD#4 S/P Right thoracotomy with evacuation of hematoma Interval history: The patient remained hemodynamically stable overnight. He was extubated yesterday and is breathing comfortably with supplemental oxygen. His chest tube output is minimal. Vital Signs, Last 4 Hours Temp Pulse Resp BP Pulse Ox 11/14/17 07:39 97.4 F L 11/14/17 06:00 71 14 132/80 92 11/14/17 05:00 61 16 123/74 96 Oxgyen Flow Rate Oxygen Flow Rate (LPM) 6 Clinical Data, last 8 Hours Output, Chest Tube Drainage 0 Amount [right anterior] Output, Chest Tube Drainage 10 Amount [right anterior] Output, Chest Tube Drainage 10 Amount [right anterior] Output, Chest Tube Drainage 0 Amount [Right Posterior Chest] Output, Chest Tube Drainage 10 Amount [Right Posterior Chest] Output, Chest Tube Drainage 10 Amount [Right Posterior Chest] Weight 11/12/17 11/13/17 11/14/17 23:59 23:59 23:59 Weight 81.6 kg 80.5 kg - Physical Examination General: Conversant, No Apparent Distress Neck: No JVD, Normal carotid pulses Cardiac: Normal S1 and S2, No Murmur, Other (Irregular rate and rhythm (atrial fibrillation)) Incision: No signs of infection, Dry/intact dressing Chest tubes: Minimal drainage, Other (No air leak) Lungs: Normal Breath Sounds, No Wheeze, Rales, Rhonchi Neuro: Alert and responsive, No focal deficits noted Vascular: Normal capillary refill Extremities: No Clubbing, No Cyanosis, No Edema - Labs 11/14/17 04:22 11/14/17 04:22 Lab Results, Last 24 hours 11/13/17 11/14/17 11/14/17 09:24 04:22 04:22 WBC 12.9 H Hgb 8.9 L 8.9 L Hct 27.5 L 27.4 L Plt Count 209 Sodium 138 Potassium 4.0 Chloride 105 Carbon Dioxide 30 H BUN 28 H Creatinine 0.77 Glucose 113 H Calcium 8.6 Magnesium 1.7 - Imaging Chest Xray: image reviewed (No pneumothorax. Increased right basilar groundglass opacities.) Consult Discharge Plan - Plan Referrals: Eleazar Kee, ELECTROENCEPHALOGRAPHIC TECHNICIAN [Primary Care Provider] -
--- NOTE | 2017-11-14 09:12 | Pulmonology Progress Note ---
<[email or web address] - Last Filed: 11/14/17 10:59> Date of Encounter: 11/14/17 Time of Encounter: 09:12 Assessment and Plan (1) Hemothorax on right Current Visit: Yes Status: Acute Patient had hemothorax which was successfully drained by cardio throacic surgery pneumothorax resolved Plan: continue chest tube in place continue management per cardio thoracic surgery patient stable for transfer to (2) Angio-edema Current Visit: Yes Status: Acute Resolved Patient with Swelling of tongue, lips, and eyelids after thoracotomy in the PACU Patient reintubated for airway protection. Patient has received the following medications since admission: "albumin, normal saline, proventil, symbicort, precedex, fentanyl, heparin, solumedrol, zosyn, vancomycn, versed, zofran, rocuronium, morphine, lacrilube, and anti-inhibitorcoagulaent complex." Patient has been on lisinopril for almost a year with out issue. Patient also has a flat pink blanchable rash in his groin and petichiae on his shins Patient with no known allergies. zosyn stopped. Plan: continue to hold lisinopril continue to monitor Qualifiers: Encounter type: initial encounter Qualified Code(s): T78.3XXA - Angioneurotic edema, initial encounter (3) Acute and chronic respiratory failure with hypoxia Current Visit: Yes Status: Acute Resolved likely 2/2 to angiodema and underlying CHF and COPD Patient off mechanical ventilation Patient on 6L NC (4) DVT (deep venous thrombosis) Current Visit: Yes Status: Chronic Pt diagnosed with B/l DVTs 10/24/17 in b/l gastroc veins repeat dopplers showed L DVT had resolved and R persisted Patient had been on elequis but was held during a prior hospitalization prior to discovery of DVTs Patient unable to be fully anticoagulated 2/2 hemthorax. Pt had IVC filter placed over the weekend Plan: pt with IVC filter continue SCDs Qualifiers: DVT location: lower extremity Affected thrombotic vein of extremity: unspecified vein of extremity Chronicity: chronic Laterality: left Qualified Code(s): I82.502 - Chronic embolism and thrombosis of unspecified deep veins of left lower extremity (5) Atrial fibrillation Current Visit: Yes Status: Chronic Hx of a fib on elequis currently in a fib Plan: Continue to hold elequis increased lopressor to 25BID from 12.5BID continue rate control as needed Qualifiers: Atrial fibrillation type: chronic Qualified Code(s): I48.2 - Chronic atrial fibrillation (6) Anemia Current Visit: Yes Status: Acute Acute blood loss anemia 2/2 hemothorax hgb 8.9 today stable from yesterday patient was transfused 4 units PRBC during admission Plan: continue to monitor h/h replete as needed Qualifiers: Anemia type: iron deficiency Iron deficiency anemia type: chronic blood loss Qualified Code(s): D50.0 - Iron deficiency anemia secondary to blood loss (chronic) (7) COPD (chronic obstructive pulmonary disease) Current Visit: Yes Status: Chronic Hx of COPD not currently in acute exacerbation Plan: continue albuterol and symbicort Qualifiers: COPD type: unspecified COPD Qualified Code(s): J44.9 - Chronic obstructive pulmonary disease, unspecified (8) CAD (coronary artery disease) Current Visit: Yes Status: Chronic Pt has chronically elevated troponin trop flat stable and adynamic Plan: continue tele monitoring continue home meds Qualifiers: Coronary Disease-Associated Artery/Lesion type: [place] artery Habematolel vs. transplanted heart: [place] heart Associated angina: without angina Qualified Code(s): I25.10 - Atherosclerotic heart disease of [place] coronary artery without angina pectoris (9) Chronic systolic CHF (congestive heart failure) Current Visit: No Status: Chronic Hx of Systollic CHF Plan: restarted home lasix at only dialy instead of BID. (10) Spontaneous pneumothorax Current Visit: No Status: Acute Resolved History of recent mechanical pleurodesis and bleb resection for spontaneous pneumothorax with severe underlying bullous lung disease. CT surgery is managing his chest tube is in place without air leak today Subjective Principal diagnosis: Hemothorax Interval history: Patient continues to do well off extubation. Swelling of face and lips resolved. Rash resolved. Patient with cough and pain with cough secondary to rib fracture. Patient stable for transfer out of the ICU. Objective PUL Vital signs: Last Vital Signs Temp 97.4 F L 11/14/17 07:39 Pulse 71 11/14/17 06:00 Resp 14 11/14/17 06:00 BP 132/80 11/14/17 06:00 Pulse Ox 92 11/14/17 08:00 General appearance: no acute distress Eyes: nonicteric ENT: oropharynx moist Neck: supple Effort: normal Auscultation: right: diminished breath sounds, bilateral: clear Cardiovascular: regular rate and rhythm Gastrointestinal: normoactive bowel sounds Integumentary: normal Extremities: no cyanosis, edema Musculoskeletal: no deformities normal mental status, non-focal exam mood appropriate, affect normal Results - Laboratory Findings CBC and BMP: 11/14/17 04:22 11/14/17 04:22 ABG ABG pH 7.40 pH Units (7.32-7.45) 11/12/17 04:11 ABG pCO2 42 mmHg (35-45) 11/12/17 04:11 ABG pO2 122 mmHg (85-104) H 11/12/17 04:11 ABG O2 Saturation 99 % (95-98) H 11/12/17 04:11 PT/INR, D-dimer PT 12.7 Seconds (9.4-12.1) H 11/12/17 10:16 Abnormal lab findings: Abnormal lab results WBC 12.9 K/mcL (4.3-11.1) H 11/14/17 04:22 RBC 3.16 M/mcL (4.19-5.50) L 11/14/17 04:22 Hgb 8.9 g/dL (12.9-16.9) L 11/14/17 04:22 Hct 27.4 % (37.5-50.1) L 11/14/17 04:22 RDW 17.0 % (11.5-14.5) H 11/14/17 04:22 Neutrophils # 11.0 K/mcL (1.6-8.9) H 11/14/17 04:22 Nucleated RBCs/100 WBC 0.2 /100 WBC (0) H 11/14/17 04:22 PT 12.7 Seconds (9.4-12.1) H 11/12/17 10:16 ABG pO2 122 mmHg (85-104) H 11/12/17 04:11 ABG Total CO2 27 mEq/L (20-26) H 11/12/17 04:11 ABG O2 Saturation 99 % (95-98) H 11/12/17 04:11 VBG pCO2 54 mmHg (41-51) H 11/14/17 07:43 VBG pO2 53 mmHg (25-50) H 11/14/17 07:43 VBG HCO3 31 mEq/L (21-27) H 11/14/17 07:43 Carbon Dioxide 30 mEq/L (23-29) H 11/14/17 04:22 BUN 28 mg/dL (8-23) H 11/14/17 04:22 BUN/Creatinine Ratio 36 (6-26) H 11/14/17 04:22 Glucose 113 mg/dL (70-105) H 11/14/17 04:22 POC Glucose 217 (58-89) H 11/12/17 05:38 Lactic Acid < 0.2 mmol/L (0.5-2.2) L 11/11/17 08:51 Phosphorus 2.3 mg/dL (2.7-4.5) L 11/14/17 04:22 Troponin I 0.05 ng/mL (< 0.04) H* 11/11/17 02:12 - Microbiology Findings Microbiology Findings: Microbiology, Last 48 Hours 11/11/17 10:29 Blood Culture - Preliminary Peripheral Venipuncture No growth. 11/11/17 08:51 Blood Culture - Preliminary Central Venous Catheter No growth. - Clinical Findings Intake & Output: Intake & Output 11/13/17 11/14/17 11/14/17 23:59 07:59 15:59 Intake Total 50 / 50 Output Total 435 / 435 1130 / 1130 0 / 0 Balance -425 / -425 -1080 / -1080 0 / 0 Consult Discharge Plan - Plan Referrals: Eleazar Kee, [employer] [Primary Care Provider] - <Jayson Zamudio - Last Filed: 11/14/17 15:44> Date of Encounter: 11/14/17 Objective PUL Vital signs: Last Vital Signs Temp 98.0 F 11/14/17 15:16 Pulse 95 11/14/17 13:00 Resp 16 11/14/17 13:00 BP 135/79 11/14/17 13:00 Pulse Ox 90 11/14/17 13:00 Results - Laboratory Findings CBC and BMP: 11/14/17 04:22 11/14/17 04:22 ABG ABG pH 7.40 pH Units (7.32-7.45) 11/12/17 04:11 ABG pCO2 42 mmHg (35-45) 11/12/17 04:11 ABG pO2 122 mmHg (85-104) H 11/12/17 04:11 ABG O2 Saturation 99 % (95-98) H 11/12/17 04:11 PT/INR, D-dimer PT 12.7 Seconds (9.4-12.1) H 11/12/17 10:16 Abnormal lab findings: Abnormal lab results WBC 12.9 K/mcL (4.3-11.1) H 11/14/17 04:22 RBC 3.16 M/mcL (4.19-5.50) L 11/14/17 04:22 Hgb 8.9 g/dL (12.9-16.9) L 11/14/17 04:22 Hct 27.4 % (37.5-50.1) L 11/14/17 04:22 RDW 17.0 % (11.5-14.5) H 11/14/17 04:22 Neutrophils # 11.0 K/mcL (1.6-8.9) H 11/14/17 04:22 Nucleated RBCs/100 WBC 0.2 /100 WBC (0) H 11/14/17 04:22 PT 12.7 Seconds (9.4-12.1) H 11/12/17 10:16 ABG pO2 122 mmHg (85-104) H 11/12/17 04:11 ABG Total CO2 27 mEq/L (20-26) H 11/12/17 04:11 ABG O2 Saturation 99 % (95-98) H 11/12/17 04:11 VBG pCO2 54 mmHg (41-51) H 11/14/17 07:43 VBG pO2 53 mmHg (25-50) H 11/14/17 07:43 VBG HCO3 31 mEq/L (21-27) H 11/14/17 07:43 Carbon Dioxide 30 mEq/L (23-29) H 11/14/17 04:22 BUN 28 mg/dL (8-23) H 11/14/17 04:22 BUN/Creatinine Ratio 36 (6-26) H 11/14/17 04:22 Glucose 113 mg/dL (70-105) H 11/14/17 04:22 POC Glucose 217 (58-89) H 11/12/17 05:38 Lactic Acid < 0.2 mmol/L (0.5-2.2) L 11/11/17 08:51 Phosphorus 2.3 mg/dL (2.7-4.5) L 11/14/17 04:22 Troponin I 0.05 ng/mL (< 0.04) H* 11/11/17 02:12 - Microbiology Findings Microbiology Findings: Microbiology, Last 48 Hours 11/11/17 10:29 Blood Culture - Preliminary Peripheral Venipuncture No growth. - Clinical Findings Intake & Output: Intake & Output 11/13/17 11/14/17 11/14/17 23:59 07:59 15:59 Intake Total 50 / 50 Output Total 435 / 435 1130 / 1130 620 / 620 Balance -425 / -425 -1080 / -1080 -620 / -620 - Attending Attestation I examined this patient and my medical decision-making was reviewed with the Resident Physician. I agree with the documented findings, disposition and treatment plan as described except to the extent set forth below. Patient seen and examined. Labs, radiology, chart personally reviewed. Agree with resident's history and physical, assessment, plan with following comments: [employer]IATE: Patient follows commands, Pulmonary: Acceptable oxygenation and ventilation. Discussed with Dr. Blackwell and patient was stepped down to 2 N. wean off oxygen to keep SPO2 around 90%. Cardiovascular: stable GI: Nutrition per dietary and GI prophylaxis per routine Heme: DVT prophylaxis per routine. Patient with IVC filter and I suspect he will need anticoagulation once his is stable from surgical standpoint. ID: Continue antibiotics and plan to de-escalation Renal; urine out put and renal funtion reviewed Endorcine: blood glucose is monitored Lines: all lines checked and no evidence of infections Skin: skin care to prevent pressure ulcers per nursing routine care
[2017-11-14] MEDS ORDERED: *HR* Alteplase (Cathflo) 2 MG VIAL IVP ONE ×2 (10:43→11:20)
[2017-11-14] MEDS: Budesonide/Formoterol 80/4.5 MDI IH SCH ×2 (10:45→20:06)
[2017-11-14] MEDS ORDERED: Furosemide 40 MG TABLET PO SCH (11:00)
[2017-11-14] MEDS ORDERED: Acetaminophen 325 MG TABLET PO PRN (11:20)
[2017-11-14] MEDS ORDERED: Lactulose Oral Soln 20 GM/30 ML UDC PO PRN (11:20)
[2017-11-14] MEDS ORDERED: Nitroglycerin 0.4 MG TAB.SUBL SL PRN (11:20)
[2017-11-14] MEDS ORDERED: Naloxone 0.4 MG/ML INJ IVP PRN (11:20)
[2017-11-14] MEDS: *HR* OxyCODONE/APAP 5/325 TABLET PO PRN ×2 (14:41→21:02)
[2017-11-14] MEDS: Temazepam 15 MG CAPSULE PO PRN (23:34)
[2017-11-15] MEDS: *HR* OxyCODONE/APAP 5/325 TABLET PO PRN ×2 (02:19→13:19)
[2017-11-15] MEDS: *HR* Morphine 2 MG/ML SYRINGE IVP PRN ×7 (02:23→23:10)
[2017-11-15] MEDS: Ipratropium/Albuterol Neb 3 ML IH SCH ×6 (03:18→20:32)
[2017-11-15] MEDS: *HR* HYDROcodone/Acet 10/325 mg TABLET PO PRN ×2 (05:29→09:28)
[2017-11-15] MEDS: Cefepime HCl 2,000 MG in Water for inj. (sterile) 20 ML 10 ML IVPB SCH ×2 (05:30→16:52)
[2017-11-15 06:34] LABS: Basophils % 0.1 %; Eosinophils % 0.5 %; Hematocrit 28.7 % (37.5-50.1); Hemoglobin 9.1 g/dL (12.9-16.9); Immature Granulocytes % 0.2 % (0-4); Lymphocytes # 1.1 K/mcL (0.6-4.6); Lymphocytes % 13.6 %; Mean Corpuscular HGB Conc 31.7 g/dL (31.6-35.5); Mean Corpuscular Hemoglobin 27.7 pg (28.0-33.3); Mean Corpuscular Volume 87.2 fL (83.0-100.0); Mean Platelet Volume 9.9 fL (9.4-12.4); Monocytes # 0.7 K/mcL (0.0-1.3); Monocytes % 8.1 %; Neutrophils # 6.3 K/mcL (1.6-8.9); Nucleated Red Blood Cells 0.2 /100 WBC (0); Platelet Count 197 K/mcL (140-400); Red Blood Count 3.29 M/mcL (4.19-5.50); Red Cell Distribution Width 16.7 % (11.5-14.5); Segmented Neutrophils % 77.5 %
[2017-11-15 06:37] LABS: BUN/Creatinine Ratio 26 (6-26); Blood Urea Nitrogen 16 mg/dL (8-23); Calcium 8.7 mg/dL (8.6-10.3); Carbon Dioxide 30 mEq/L (23-29); Chloride 102 mEq/L (98-107); Glucose 89 mg/dL (70-105); Osmolality,Calculated 283 (280-300); Potassium 3.8 mEq/L (3.5-5.1); Sodium 136 mEq/L (136-145); eGFR For African Americans > 60 (> 60); eGFR For Non-African Americans > 60 (> 60)
[2017-11-15] MEDS: Furosemide 40 MG TABLET PO SCH (07:30)
[2017-11-15] MEDS: *HR* Amiodarone 200 MG TABLET PO SCH (07:30)
[2017-11-15] MEDS: Budesonide/Formoterol 80/4.5 MDI IH SCH ×2 (07:30→20:32)
--- NOTE | 2017-11-15 08:10 | Cardiothoracic Progress Note ---
Date of Encounter: 11/15/17 Time of Encounter: 08:07 - Assessment and plan (1) Hemothorax on right Current Visit: Yes Status: Acute The patient remained hemodynamically stable overnight; however, he believes that his breathing has worsened overnight. I will ask the head of history to reevaluate the patient and assist in his breathing management. The assessment and plan as outlined above was discussed with the patient and/or family members who expressed understanding and agreement. All questions were answered. - Subjective Procedure(s) Performed: POD#5 S/P Right thoracotomy with evacuation of hematoma Interval history: The patient remained hemodynamically stable overnight. He believes his breathing has worsened overnight. His chest tube output is minimal. Vital Signs, Last 4 Hours Temp Pulse Resp BP Pulse Ox 11/15/17 07:35 82 11/15/17 07:34 18 92 11/15/17 07:06 99.3 F 87 15 141/84 93 11/15/17 06:00 94 11/15/17 05:21 98.8 F 73 16 160/98 93 Oxgyen Flow Rate Oxygen Flow Rate (LPM) 6 Clinical Data, last 8 Hours Output, Chest Tube Drainage 0 Amount [right anterior] Output, Chest Tube Drainage 20 Amount [right anterior] Output, Chest Tube Drainage 0 Amount [Right Posterior Chest] Output, Chest Tube Drainage 40 Amount [Right Posterior Chest] Output, Urine Amount 400 Weight 11/13/17 11/14/17 11/15/17 23:59 23:59 23:59 Weight 80.5 kg 81.3 kg 80.6 kg - Physical Examination General: Conversant, No Apparent Distress Neck: No JVD, Normal carotid pulses Cardiac: Normal S1 and S2, No Murmur, Other (Irregular rate and rhythm (atrial fibrillation)) Incision: No signs of infection, Dry/intact dressing Chest tubes: Minimal drainage, Other (No air leak) Lungs: Normal Breath Sounds (Left lung cedillo), Decreased breath sounds (Right base) Neuro: Alert and responsive, No focal deficits noted Vascular: Normal capillary refill Extremities: No Clubbing, No Cyanosis, Other (Edema in both feet from the ankles to the toes) - Labs 11/15/17 06:00 11/15/17 06:00 Lab Results, Last 24 hours 11/15/17 11/15/17 06:00 06:00 WBC 8.1 Hgb 9.1 L Hct 28.7 L Plt Count 197 Sodium 136 Potassium 3.8 Chloride 102 Carbon Dioxide 30 H BUN 16 Creatinine 0.61 L Glucose 89 Calcium 8.7 - Imaging Chest Xray: image reviewed (No pneumothorax. Persistent groundglass opacities in right base.) - VTE Documentation of Mechanical Device: Intermittent pneumatic compression device Consult Discharge Plan - Plan Referrals: Eleazar Kee, CAN[facility] [Primary Care Provider] -
--- NOTE | 2017-11-15 08:56 | Internal Med Progress Note ---
<Jess Shrestha - Last Filed: 11/15/17 13:51> Date of Encounter: 11/15/17 Time of Encounter: 08:30 - Assessment and plan (1) Acute and chronic respiratory failure with hypoxia Current Visit: Yes Status: Acute Assessment and plan: - Initial ABG on 11/11/17 with pH 7.37, pCO2 50, pO2 70 and HCO3 29. - Likely multifactorial including right hemothorax and angioedema in the setting of COPD and history of right spontaneous pneumothorax. - Improves as patient maintains acceptable oxygenation on 6L [place]. - Continue chest tube draining and hemothorax management per cardiothoracic surgery. - Continue Symbicort, scheduled bronchodilators and supplemental oxygen for COPD. - Patient is encouraged to use incentive spirometry. - Will start Flonase for nasal congestion which per patient may contribute to his shortness of breath. - Patient can use non-invasive ventilation as needed. - Continue to monitor closely. (2) Hemothorax on right Current Visit: Yes Status: Acute Assessment and plan: - CT chest on 11/10/17 found right hydropneumothorax with chest tube remaining in place and significant increase in volume of complex pleural fluid in the right chest, evidence of hemothorax. - Status post right posterior lateral thoracotomy with evacuation of hematoma on 11/11/17. POD#5 - Intraoperative findings of a large amount of loculated, organized hematoma along the diaphragm, right lateral chest wall, and right apex. A loculated serosanguineous fluid flexion was also identified above the diaphragm and removed. - 240 mL of chest tube drainage for whole day yesterday. - Hold anticoagulation. - Management per cardiothoracic surgery. (3) Angio-edema Current Visit: Yes Status: Acute Assessment and plan: - Swelling of tongue, lips, and eyelids noted after thoracotomy on 11/11/17 in the PACU. Patient was reintubated for airway protection at that time. Flat pink blanchable rash in his groin and petichiae on his shins were also noted. - The cause is unclear. Patient received the following medications between admission and occurrence of Angioedema : Albumin, normal saline, Proventil, Symbicort, Precedex, Fentanyl, heparin, Solu-Medrol, Zosyn, Vancomycn, Versed, Zofran, rocuronium, morphine, Lacrilube, and anti-inhibitorcoagulaent complex. - Patient has been on lisinopril for almost a year with no known issue. No known allergies. - Zosyn and lisinopril have been discontinued since. - Resolved as patient's swelling and respiratory status improved. Patient was extubated on 11/12/17. Qualifiers: Encounter type: initial encounter Qualified Code(s): T78.3XXA - Angioneurotic edema, initial encounter (4) COPD (chronic obstructive pulmonary disease) Current Visit: Yes Status: Chronic Assessment and plan: - Continue Symbicort, scheduled bronchodilators and supplemental oxygen. Qualifiers: COPD type: unspecified COPD Qualified Code(s): J44.9 - Chronic obstructive pulmonary disease, unspecified (5) Atrial fibrillation Current Visit: Yes Status: Chronic Assessment and plan: - Currently rate-controlled. Continue metoprolol. - Was on Eliquis at home but all anticoagulations have been held since admission due his hemothorax. - Patient had IVC filter placed on 11/11/17. - Continue telemetry monitoring. Qualifiers: Atrial fibrillation type: chronic Qualified Code(s): I48.2 - Chronic atrial fibrillation (6) DVT (deep venous thrombosis) Current Visit: Yes Status: Chronic Assessment and plan: - Bilateral lower extremity venous duplex on 10/24/17 found acute DVTs in bilateral gastroc veins and L ant tibial vein. - Patient was on Eliquis prior to admission. Anticoagulation had been held since given his hemothorax. - Status post IVC filer placement on 11/11/17. - Continue Qualifiers: DVT location: lower extremity Affected thrombotic vein of extremity: unspecified vein of extremity Chronicity: chronic Laterality: left Qualified Code(s): I82.502 - Chronic embolism and thrombosis of unspecified deep veins of left lower extremity (7) Anemia Current Visit: Yes Status: Acute Assessment and plan: - Hgb 7.5 on admission and then dropped as low as 6.5 on 11/12/17. - Related to blood loss from hemothorax and associated surgical intervention. - Status post 4 units of pRBC transfusion since admission. - Improves as Hgb 9.1 today. - Continue to monitor. Qualifiers: Anemia type: iron deficiency Iron deficiency anemia type: chronic blood loss Qualified Code(s): D50.0 - Iron deficiency anemia secondary to blood loss (chronic) (8) CAD (coronary artery disease) Current Visit: Yes Status: Chronic Assessment and plan: - Status post CABG in August 2014. - Continue metoprolol, Lipitor and prn nitroglycerin. Qualifiers: Coronary Disease-Associated Artery/Lesion type: [place] artery [place] vs. transplanted heart: [place] heart Associated angina: without angina Qualified Code(s): I25.10 - Atherosclerotic heart disease of [place] coronary artery without angina pectoris (9) Spontaneous pneumothorax Current Visit: No Status: Acute Assessment and plan: - Status post right thoracotomy with apical bleb resection on 10/19/17. - Chest tubes in place. - Management per cardiothoracic surgery. (10) MRSA bacteremia Current Visit: No Status: Resolved Assessment and plan: - Blood cultures from 10/24/17 (2/2) grew MRSA sensitive to vancomycin, daptomycin, doxycycline, gentamicin, linezolid, tetracycline and Bactrim. - Repeat blood cultures on 10/25/17 had no growth. - TTE on 10/30/17 found LVEF 60% and no visible vegetation. - PRAVEENA on 10/31/17LVEF 60% and no evidence of vegetation. - Patient was previously discharged home on 11/01/17 with 3 more weeks of IV vancomycin therapy to finish total 4-week course (anticipated to finish on ). - Patient's last IV vancomycin was on 11/12/17. - Blood cultures from 11/11/17: No growth to date. - Case was discussed with attending Dr. Craig. Given patient's negative blood cultures and angioedema likely from medications including antibiotic, will not resume IV vancomycin at this time. - Subjective Interval history: Patient was seen and examined this morning. Patient reports having increased labor of breathing last night. Patient also complains of nasal congestion and feels it may also partially contribute to his shortness of breath. Patient still has 5/10 right-side chest pain which can be aggravated to 9/10 with cough. Patient denies fever or chills. Patient states he has been compliant with prescribed IV antibiotic use prior to admission. - Constitutional Vitals: Temp Pulse Resp BP Pulse Ox 99.3 F 82 18 141/84 92 11/15/17 07:06 11/15/17 07:35 11/15/17 07:34 11/15/17 07:06 11/15/17 07:34 General appearance: Present: cooperative, A&O X 2, severe distress, answers questions appropriately - Head Head exam: Present: normal inspection - Eye Eye exam: Present: EOMI, conjuntiva pink, sclera anicteric - Neck Neck exam general surgery: Present: normal inspection, supple, trachea midline - Respiratory Respiratory exam: Present: decreased breath sounds (Right lower lung). Absent: accessory muscle use - Cardiovascular Cardiovascular exam: Present: RRR, +S1, +S2 - GI/Abdominal GI/Abdominal exam: Present: normal bowel sounds, soft. Absent: tenderness - Extremities Exam Extremities exam: Present: pedal edema (Moderate BLE edema), warm. Absent: cyanotic - Neurological Exam Neurological exam: Present: alert. Absent: facial droop, speech deficit - Skin Skin exam: Present: dry, warm Internal Medicine: Result - Labs CBC & Chem 7: 11/15/17 06:00 11/15/17 06:00 Labs: Short CBC 11/15/17 Range/Units 06:00 WBC 8.1 (4.3-11.1) K/mcL Hgb 9.1 L (12.9-16.9) g/dL Hct 28.7 L (37.5-50.1) % Plt Count 197 (140-400) K/mcL Neutrophils # 6.3 (1.6-8.9) K/mcL BMP 11/15/17 06:00 Sodium 136 Potassium 3.8 Chloride 102 Carbon Dioxide 30 H BUN 16 Creatinine 0.61 L Glucose 89 Calcium 8.7 - ABG Interpretation ABG results: ABG ABG pH 7.40 pH Units (7.32-7.45) 11/12/17 04:11 ABG pCO2 42 mmHg (35-45) 11/12/17 04:11 ABG pO2 122 mmHg (85-104) H 11/12/17 04:11 ABG O2 Saturation 99 % (95-98) H 11/12/17 04:11 PT/INR, D-dimer PT 12.7 Seconds (9.4-12.1) H 11/12/17 10:16 - Impressions Impressions Chest X-Ray 11/15/17 08:03 IMPRESSION: 1. Small right pleural effusion, decreased in size from prior study. Decrease in right basilar opacity compatible improving atelectasis and/or pneumonia. 2. Hyperinflation compatible with COPD. 3. Trace right apical pneumothorax, unchanged. Right chest tubes remain present. D/ / Re Lorenzo MD / Re Lorenzo MD Interpreting Provider: Re Lorenzo MD - VTE Documentation of Mechanical Device: Intermittent pneumatic compression device Consult Discharge Plan - Plan Referrals: Nga Blackwell MD [Partnered Physician] - 12/13/17 1:00 pm Eleazar Kee CNP [Primary Care Provider] - 12/06/17 9:30 am <Efrain Craig - Last Filed: 11/15/17 18:19> Date of Encounter: 11/15/17 - Assessment and plan (1) Acute and chronic respiratory failure with hypoxia Current Visit: Yes Status: Acute (2) Anemia Current Visit: Yes Status: Chronic Qualifiers: Anemia type: iron deficiency Iron deficiency anemia type: chronic blood loss Qualified Code(s): D50.0 - Iron deficiency anemia secondary to blood loss (chronic) (3) Sepsis Current Visit: Yes Status: Resolved Qualifiers: Sepsis type: sepsis due to unspecified organism Qualified Code(s): A41.9 - Sepsis, unspecified organism (4) Hemothorax on right Current Visit: Yes Status: Acute (5) Atrial fibrillation Current Visit: Yes Status: Chronic Qualifiers: Atrial fibrillation type: chronic Qualified Code(s): I48.2 - Chronic atrial fibrillation (6) COPD (chronic obstructive pulmonary disease) Current Visit: Yes Status: Chronic Qualifiers: COPD type: unspecified COPD Qualified Code(s): J44.9 - Chronic obstructive pulmonary disease, unspecified (7) CAD (coronary artery disease) Current Visit: Yes Status: Chronic Qualifiers: Coronary Disease-Associated Artery/Lesion type: [place] artery [place] vs. transplanted heart: [place] heart Associated angina: without angina Qualified Code(s): I25.10 - Atherosclerotic heart disease of [place] coronary artery without angina pectoris (8) MRSA (methicillin resistant Staphylococcus aureus) infection Current Visit: No Status: Resolved - Constitutional Vitals: Temp Pulse Resp BP Pulse Ox 98.5 F 81 18 139/89 95 11/15/17 15:00 11/15/17 15:00 11/15/17 16:08 11/15/17 15:00 11/15/17 16:08 Internal Medicine: Result - Labs CBC & Chem 7: 11/15/17 06:00 11/15/17 06:00 Labs: Short CBC 11/15/17 Range/Units 06:00 WBC 8.1 (4.3-11.1) K/mcL Hgb 9.1 L (12.9-16.9) g/dL Hct 28.7 L (37.5-50.1) % Plt Count 197 (140-400) K/mcL Neutrophils # 6.3 (1.6-8.9) K/mcL BMP 11/15/17 06:00 Sodium 136 Potassium 3.8 Chloride 102 Carbon Dioxide 30 H BUN 16 Creatinine 0.61 L Glucose 89 Calcium 8.7 - ABG Interpretation ABG results: ABG ABG pH 7.40 pH Units (7.32-7.45) 11/12/17 04:11 ABG pCO2 42 mmHg (35-45) 11/12/17 04:11 ABG pO2 122 mmHg (85-104) H 11/12/17 04:11 ABG O2 Saturation 99 % (95-98) H 11/12/17 04:11 PT/INR, D-dimer PT 12.7 Seconds (9.4-12.1) H 11/12/17 10:16 - Impressions Impressions Chest X-Ray 11/15/17 08:03 IMPRESSION: 1. Small right pleural effusion, decreased in size from prior study. Decrease in right basilar opacity compatible improving atelectasis and/or pneumonia. 2. Hyperinflation compatible with COPD. 3. Trace right apical pneumothorax, unchanged. Right chest tubes remain present. D/ / Re Lorenzo MD / Re Lorenzo MD Interpreting Provider: Re Lorenzo MD - Attending Attestation I examined this patient and my medical decision-making was reviewed with the Resident Physician on 11/15/17. I agree with the documented findings, disposition and treatment plan as described except to the extent set forth below. Mr Johnson is currently admitted for R hemothorax. He remains moderate to high risk due to potential for worsening clinical status. Mr Johnson is tired. No fever or chills. Pain in R chest. No GI issues. Appetite fair. Exam Alert. Comfortable at this time Mucus membranes dry Heart not tachy Diminished lung sounds Abd soft I/P 1. Hemothorax - per CTS 2. MRSA bacteremia - off abx at this time. Blood cx negative 3. DVT s/p IVC filter Further diagnoses and plan as above.
[2017-11-15] MEDS: predniSONE 20 MG TABLET PO SCH (09:28)
[2017-11-15] MEDS: Fluticasone Propionate Nasal 50 MCG/SPRAY BOTTLE NS SCH (09:33)
--- NOTE | 2017-11-15 18:04 | Pulmonology Progress Note ---
Date of Encounter: 11/15/17 Time of Encounter: 09:00 Assessment and Plan (1) COPD (chronic obstructive pulmonary disease) Current Visit: Yes Status: Chronic Patient was having more shortness of breath last night and he thinks it might be related to his sinus congestion and a trial of Flonase and also may need to change nasal cannula to the mask for oxygen delivery to keep his SPO2 around 90% . Also due to his underlying severe COPD we will treat him with 5 days of prednisone and continue bronchodilators. Encouraged him to continue incentive spirometry. If his symptoms worsened then he will need to use noninvasive ventilation. It is also important to remember that patient is not on anticoagulation but he had IVC filter and if he started to have significant hypoxemia then we need to consider CT angiogram to make sure he has no pulmonary embolism. I will continue follow-up. Qualifiers: COPD type: unspecified COPD Qualified Code(s): J44.9 - Chronic obstructive pulmonary disease, unspecified (2) Spontaneous pneumothorax Current Visit: No Status: Acute Subjective Principal diagnosis: Hemothorax Interval history: Patient last night had more shortness of breath but he is feeling better now Objective PUL Vital signs: Last Vital Signs Temp 98.5 F 11/15/17 15:00 Pulse 81 11/15/17 15:00 Resp 18 11/15/17 16:08 BP 139/89 11/15/17 15:00 Pulse Ox 95 11/15/17 16:08 General appearance: no acute distress Eyes: nonicteric ENT: oropharynx moist Neck: supple Effort: mildly labored Auscultation: right: other (Chest tube), bilateral: diminished breath sounds Percussion: bilateral: not dull Cardiovascular: regular rate and rhythm Gastrointestinal: normoactive bowel sounds Extremities: no cyanosis normal mental status, non-focal exam mood appropriate Results - Laboratory Findings CBC and BMP: 11/15/17 06:00 11/15/17 06:00 ABG ABG pH 7.40 pH Units (7.32-7.45) 11/12/17 04:11 ABG pCO2 42 mmHg (35-45) 11/12/17 04:11 ABG pO2 122 mmHg (85-104) H 11/12/17 04:11 ABG O2 Saturation 99 % (95-98) H 11/12/17 04:11 PT/INR, D-dimer PT 12.7 Seconds (9.4-12.1) H 11/12/17 10:16 Abnormal lab findings: Abnormal lab results RBC 3.29 M/mcL (4.19-5.50) L 11/15/17 06:00 Hgb 9.1 g/dL (12.9-16.9) L 11/15/17 06:00 Hct 28.7 % (37.5-50.1) L 11/15/17 06:00 MCH 27.7 pg (28.0-33.3) L 11/15/17 06:00 RDW 16.7 % (11.5-14.5) H 11/15/17 06:00 Nucleated RBCs/100 WBC 0.2 /100 WBC (0) H 11/15/17 06:00 PT 12.7 Seconds (9.4-12.1) H 11/12/17 10:16 ABG pO2 122 mmHg (85-104) H 11/12/17 04:11 ABG Total CO2 27 mEq/L (20-26) H 11/12/17 04:11 ABG O2 Saturation 99 % (95-98) H 11/12/17 04:11 VBG pCO2 54 mmHg (41-51) H 11/14/17 07:43 VBG pO2 53 mmHg (25-50) H 11/14/17 07:43 VBG HCO3 31 mEq/L (21-27) H 11/14/17 07:43 Carbon Dioxide 30 mEq/L (23-29) H 11/15/17 06:00 Creatinine 0.61 mg/dL (0.70-1.30) L 11/15/17 06:00 POC Glucose 116 (58-89) H 11/14/17 19:37 Lactic Acid < 0.2 mmol/L (0.5-2.2) L 11/11/17 08:51 Phosphorus 2.3 mg/dL (2.7-4.5) L 11/14/17 04:22 Troponin I 0.05 ng/mL (< 0.04) H* 11/11/17 02:12 - Clinical Findings Intake & Output: Intake & Output 11/15/17 11/15/17 11/15/17 07:59 15:59 23:59 Intake Total 600 / 600 Output Total 460 / 460 1460 / 1460 Balance -450 / -450 -860 / -860 Weight 80.6 kg - VTE Documentation of Mechanical Device: Intermittent pneumatic compression device Consult Discharge Plan - Plan Referrals: Nga Blackwell MD [Partnered Physician] - 12/13/17 1:00 pm Eleazar Kee CNP [Primary Care Provider] - 12/06/17 9:30 am
[2017-11-15] MEDS: Temazepam 15 MG CAPSULE PO PRN (23:11)
[2017-11-16] MEDS: Ipratropium/Albuterol Neb 3 ML IH SCH ×7 (00:46→23:41)
[2017-11-16] MEDS: *HR* Morphine 2 MG/ML SYRINGE IVP PRN ×7 (04:13→22:28)
[2017-11-16] MEDS: *HR* HYDROcodone/Acet 10/325 mg TABLET PO PRN ×3 (04:14→19:34)
[2017-11-16 04:40] LABS: Hematocrit 36.6 % (37.5-50.1); Mean Corpuscular HGB Conc 30.9 g/dL (31.6-35.5); Mean Corpuscular Hemoglobin 26.8 pg (28.0-33.3); Mean Corpuscular Volume 86.7 fL (83.0-100.0); Mean Platelet Volume 9.8 fL (9.4-12.4); Platelet Count 156 K/mcL (140-400); Red Blood Count 4.22 M/mcL (4.19-5.50); Red Cell Distribution Width 16.5 % (11.5-14.5)
[2017-11-16 04:49] LABS: Hemoglobin 11.3 g/dL (12.9-16.9)
[2017-11-16 04:55] LABS: BUN/Creatinine Ratio 27 (6-26); Blood Urea Nitrogen 17 mg/dL (8-23); Calcium 8.3 mg/dL (8.6-10.3); Carbon Dioxide 32 mEq/L (23-29); Chloride 101 mEq/L (98-107); Glucose 80 mg/dL (70-105); Osmolality,Calculated 287 (280-300); Potassium 3.9 mEq/L (3.5-5.1); Sodium 138 mEq/L (136-145); eGFR For African Americans > 60 (> 60); eGFR For Non-African Americans > 60 (> 60)
[2017-11-16] MEDS: Cefepime HCl 2,000 MG in Water for inj. (sterile) 20 ML 10 ML IVPB SCH (06:22)
[2017-11-16] MEDS: predniSONE 20 MG TABLET PO SCH (07:57)
[2017-11-16] MEDS: *HR* Amiodarone 200 MG TABLET PO SCH (07:57)
[2017-11-16] MEDS: Furosemide 40 MG TABLET PO SCH (07:57)
[2017-11-16] MEDS: Fluticasone Propionate Nasal 50 MCG/SPRAY BOTTLE NS SCH (07:57)
[2017-11-16] MEDS: Budesonide/Formoterol 80/4.5 MDI IH SCH ×2 (08:04→19:48)
--- NOTE | 2017-11-16 09:03 | Cardiothoracic Progress Note ---
Date of Encounter: 11/16/17 Time of Encounter: 09:01 - Assessment and plan (1) Hemothorax on right Current Visit: Yes Status: Acute The patient remained hemodynamically stable overnight; however, he believes that his breathing has improved overnight. The patient will increase his activity today. The chest tubes should remain on suction. The assessment and plan as outlined above was discussed with the patient and/or family members who expressed understanding and agreement. All questions were answered. - Subjective Procedure(s) Performed: POD#6 S/P Right thoracotomy with evacuation of hematoma Interval history: The patient remained hemodynamically stable overnight. He believes his breathing has improved overnight. His chest tube output is minimal. Vital Signs, Last 4 Hours Temp Pulse Resp BP Pulse Ox 11/16/17 08:07 75 11/16/17 08:04 18 95 11/16/17 07:54 98.1 F 83 20 148/89 94 Oxgyen Flow Rate Oxygen Flow Rate (LPM) 5 Clinical Data, last 8 Hours Output, Chest Tube Drainage 0 Amount [right anterior] Output, Chest Tube Drainage 0 Amount [right anterior] Output, Chest Tube Drainage 0 Amount [Right Posterior Chest] Output, Chest Tube Drainage 0 Amount [Right Posterior Chest] Output, Urine Amount 150 Weight 11/14/17 11/15/17 11/16/17 23:59 23:59 23:59 Weight 81.3 kg 80.6 kg 79.9 kg - Physical Examination General: Conversant Neck: No JVD, Normal carotid pulses Cardiac: Reg Rate and Rhythm, Normal S1 and S2, No Murmur Incision: No signs of infection, Dry/intact dressing Chest tubes: Minimal drainage, Other (No air leak) Lungs: Normal Breath Sounds, No Wheeze, Rales, Rhonchi Neuro: Alert and responsive, No focal deficits noted Vascular: Normal capillary refill Extremities: No Clubbing, No Cyanosis, No Edema - Labs 11/16/17 04:20 11/16/17 04:20 Lab Results, Last 24 hours 11/16/17 11/16/17 04:20 04:20 WBC 4.9 Hgb 11.3 L D Hct 36.6 L Plt Count 156 Sodium 138 Potassium 3.9 Chloride 101 Carbon Dioxide 32 H BUN 17 Creatinine 0.64 L Glucose 80 Calcium 8.3 L - VTE Documentation of Mechanical Device: Intermittent pneumatic compression device Consult Discharge Plan - Plan Referrals: Nga Blackwell MD [Partnered Physician] - 12/13/17 1:00 pm Eleazar Kee CNP [Primary Care Provider] - 12/06/17 9:30 am
--- NOTE | 2017-11-16 10:34 | Internal Med Progress Note ---
<Jess Shrestha - Last Filed: 11/16/17 10:58> Date of Encounter: 11/16/17 Time of Encounter: 10:00 - Assessment and plan (1) Acute and chronic respiratory failure with hypoxia Current Visit: Yes Status: Acute Assessment and plan: - Initial ABG on 11/11/17 with pH 7.37, pCO2 50, pO2 70 and HCO3 29. - Likely multifactorial including right hemothorax and angioedema in the setting of COPD and history of right spontaneous pneumothorax. - Improves as patient maintains good oxygenation on 5L [place]. - Continue chest tube draining and hemothorax management per cardiothoracic surgery. - Continue prednisone, Symbicort, scheduled bronchodilators and supplemental oxygen for COPD. - Patient is encouraged to use incentive spirometry. - Continue Flonase for nasal congestion which per patient may contribute to his shortness of breath. - Patient can use non-invasive ventilation as needed. - Continue to monitor closely. (2) Hemothorax on right Current Visit: Yes Status: Acute Assessment and plan: - CT chest on 11/10/17 found right hydropneumothorax with chest tube remaining in place and significant increase in volume of complex pleural fluid in the right chest, evidence of hemothorax. - Status post right posterior lateral thoracotomy with evacuation of hematoma on 11/11/17. POD#6 - Intraoperative findings of a large amount of loculated, organized hematoma along the diaphragm, right lateral chest wall, and right apex. A loculated serosanguineous fluid flexion was also identified above the diaphragm and removed. - 70 mL of chest tube drainage for whole day yesterday. - Hold anticoagulation. - Management per cardiothoracic surgery. (3) Angio-edema Current Visit: Yes Status: Acute Assessment and plan: - Swelling of tongue, lips, and eyelids noted after thoracotomy on 11/11/17 in the PACU. Patient was reintubated for airway protection at that time. Flat pink blanchable rash in his groin and petichiae on his shins were also noted. - The cause is unclear. Patient received the following medications between admission and occurrence of Angioedema : Albumin, normal saline, Proventil, Symbicort, Precedex, Fentanyl, heparin, Solu-Medrol, Zosyn, Vancomycn, Versed, Zofran, rocuronium, morphine, Lacrilube, and anti-inhibitorcoagulaent complex. - Patient has been on lisinopril for almost a year with no known issue. No known allergies. - Zosyn and lisinopril have been discontinued since. - Resolved as patient's swelling and respiratory status improved. Patient was extubated on 11/12/17. - Will avoid antibiotic and lisnopril at this time unless it's clinically indicated. Qualifiers: Encounter type: initial encounter Qualified Code(s): T78.3XXA - Angioneurotic edema, initial encounter (4) COPD (chronic obstructive pulmonary disease) Current Visit: Yes Status: Chronic Assessment and plan: - Continue prednisone, Symbicort, scheduled bronchodilators and supplemental oxygen. Qualifiers: COPD type: COPD with acute exacerbation Qualified Code(s): J44.1 - Chronic obstructive pulmonary disease with (acute) exacerbation (5) Atrial fibrillation Current Visit: Yes Status: Chronic Assessment and plan: - Currently rate-controlled. Continue metoprolol. - Was on Eliquis at home but all anticoagulations have been held since admission due his hemothorax. - Patient had IVC filter placed on 11/11/17. - Continue telemetry monitoring. Qualifiers: Atrial fibrillation type: chronic Qualified Code(s): I48.2 - Chronic atrial fibrillation (6) DVT (deep venous thrombosis) Current Visit: Yes Status: Chronic Assessment and plan: - Bilateral lower extremity venous duplex on 10/24/17 found acute DVTs in bilateral gastroc veins and L ant tibial vein. - Patient was on Eliquis prior to admission. Anticoagulation had been held since given his hemothorax. - Status post IVC filer placement on 11/11/17. - Continue to monitor. 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 - Related to blood loss from hemothorax and associated surgical intervention. - Status post 4 units of pRBC transfusion since admission. - Significantly improves as Hgb 11.3 today. - Continue to monitor. Qualifiers: Anemia type: iron deficiency Iron deficiency anemia type: chronic blood loss Qualified Code(s): D50.0 - Iron deficiency anemia secondary to blood loss (chronic) (8) CAD (coronary artery disease) Current Visit: Yes Status: Chronic Assessment and plan: - Status post CABG in August 2014. - Continue metoprolol, Lipitor and prn nitroglycerin. Qualifiers: Coronary Disease-Associated Artery/Lesion type: [place] artery [place] vs. transplanted heart: [place] heart Associated angina: without angina Qualified Code(s): I25.10 - Atherosclerotic heart disease of [place] coronary artery without angina pectoris (9) Spontaneous pneumothorax Current Visit: No Status: Acute Assessment and plan: - Status post right thoracotomy with apical bleb resection on 10/19/17. - Chest tubes in place. - Management per cardiothoracic surgery. (10) MRSA bacteremia Current Visit: No Status: Resolved Assessment and plan: - Blood cultures from 10/24/17 (2/2) grew MRSA sensitive to vancomycin, daptomycin, doxycycline, gentamicin, linezolid, tetracycline and Bactrim. - Repeat blood cultures on 10/25/17 had no growth. - TTE on 10/30/17 found LVEF 60% and no visible vegetation. - PRAVEENA on 10/31/17LVEF 60% and no evidence of vegetation. - Patient was previously discharged home on 11/01/17 with 3 more weeks of IV vancomycin therapy to finish total 4-week course (anticipated to finish on ). - Patient's last IV vancomycin was on 11/12/17. - Blood cultures from 11/11/17: No growth to date. - Case was discussed with attending Dr. Craig. Given patient's negative blood cultures and angioedema likely from medications including antibiotic, will not resume IV vancomycin at this time. - Subjective Interval history: Patient was seen and examined this morning. Patient reports having significant improvement on his breathing and nasal congestion. Patient still has some pain from chest tubes which he graded at 6/10. Patient denies fever, chills, abdominal pain, nausea, vomiting, diarrhea. - Constitutional Vitals: Temp Pulse Resp BP Pulse Ox 98.1 F 75 18 148/89 95 11/16/17 07:54 11/16/17 08:07 11/16/17 08:04 11/16/17 07:54 11/16/17 08:04 General appearance: Present: cooperative, A&O X 2, severe distress, answers questions appropriately - Head Head exam: Present: normal inspection - Eye Eye exam: Present: EOMI, conjuntiva pink, sclera anicteric - Neck Neck exam general surgery: Present: normal inspection, supple, trachea midline - Respiratory Respiratory exam: Present: decreased breath sounds (right lung base.). Absent: accessory muscle use, rales, rhonchi, wheezes - Cardiovascular Cardiovascular exam: Present: RRR, +S1, +S2 - GI/Abdominal GI/Abdominal exam: Present: normal bowel sounds, soft, no peritoneal signs. Absent: tenderness - Extremities Exam Extremities exam: Present: pedal edema (Mild BLE edema, improved compared to yesterday.), warm. Absent: cyanotic - Neurological Exam Neurological exam: Present: alert, oriented X3, no focal deficits. Absent: facial droop, speech deficit - Skin Skin exam: Present: dry, warm Internal Medicine: Result - Labs CBC & Chem 7: 11/16/17 04:20 11/16/17 04:20 Labs: Short CBC 11/16/17 Range/Units 04:20 WBC 4.9 (4.3-11.1) K/mcL Hgb 11.3 L D (12.9-16.9) g/dL Hct 36.6 L (37.5-50.1) % Plt Count 156 (140-400) K/mcL BMP 11/16/17 04:20 Sodium 138 Potassium 3.9 Chloride 101 Carbon Dioxide 32 H BUN 17 Creatinine 0.64 L Glucose 80 Calcium 8.3 L - ABG Interpretation ABG results: ABG ABG pH 7.40 pH Units (7.32-7.45) 11/12/17 04:11 ABG pCO2 42 mmHg (35-45) 11/12/17 04:11 ABG pO2 122 mmHg (85-104) H 11/12/17 04:11 ABG O2 Saturation 99 % (95-98) H 11/12/17 04:11 PT/INR, D-dimer PT 12.7 Seconds (9.4-12.1) H 11/12/17 10:16 - VTE Documentation of Mechanical Device: Intermittent pneumatic compression device Consult Discharge Plan - Plan Referrals: Nga Blackwell MD [Partnered Physician] - 12/13/17 1:00 pm Eleazar Kee CNP [Primary Care Provider] - 12/06/17 9:30 am <Efrain Craig - Last Filed: 11/16/17 18:12> Date of Encounter: 11/16/17 - Assessment and plan (1) Acute and chronic respiratory failure with hypoxia Current Visit: Yes Status: Acute (2) Anemia Current Visit: Yes Status: Chronic Qualifiers: Anemia type: iron deficiency Iron deficiency anemia type: chronic blood loss Qualified Code(s): D50.0 - Iron deficiency anemia secondary to blood loss (chronic) (3) Sepsis Current Visit: Yes Status: Resolved Qualifiers: Sepsis type: sepsis due to unspecified organism Qualified Code(s): A41.9 - Sepsis, unspecified organism (4) Atrial fibrillation Current Visit: Yes Status: Chronic Qualifiers: Atrial fibrillation type: chronic Qualified Code(s): I48.2 - Chronic atrial fibrillation (5) COPD (chronic obstructive pulmonary disease) Current Visit: Yes Status: Chronic Qualifiers: COPD type: COPD with acute exacerbation Qualified Code(s): J44.1 - Chronic obstructive pulmonary disease with (acute) exacerbation (6) CAD (coronary artery disease) Current Visit: Yes Status: Chronic Qualifiers: Coronary Disease-Associated Artery/Lesion type: [place] artery [place] vs. transplanted heart: [place] heart Associated angina: without angina Qualified Code(s): I25.10 - Atherosclerotic heart disease of [place] coronary artery without angina pectoris (7) Hemothorax on right Current Visit: Yes Status: Acute - Constitutional Vitals: Temp Pulse Resp BP Pulse Ox 97.9 F 88 18 125/82 93 11/16/17 15:22 11/16/17 15:22 11/16/17 16:13 11/16/17 15:22 11/16/17 16:13 Internal Medicine: Result - Labs CBC & Chem 7: 11/16/17 04:20 11/16/17 04:20 Labs: Short CBC 11/16/17 Range/Units 04:20 WBC 4.9 (4.3-11.1) K/mcL Hgb 11.3 L D (12.9-16.9) g/dL Hct 36.6 L (37.5-50.1) % Plt Count 156 (140-400) K/mcL BMP 11/16/17 04:20 Sodium 138 Potassium 3.9 Chloride 101 Carbon Dioxide 32 H BUN 17 Creatinine 0.64 L Glucose 80 Calcium 8.3 L - ABG Interpretation ABG results: ABG ABG pH 7.40 pH Units (7.32-7.45) 11/12/17 04:11 ABG pCO2 42 mmHg (35-45) 11/12/17 04:11 ABG pO2 122 mmHg (85-104) H 11/12/17 04:11 ABG O2 Saturation 99 % (95-98) H 11/12/17 04:11 PT/INR, D-dimer PT 12.7 Seconds (9.4-12.1) H 11/12/17 10:16 - Attending Attestation I examined this patient and my medical decision-making was reviewed with the Resident Physician on 11/16/17. I agree with the documented findings, disposition and treatment plan as described except to the extent set forth below. Mr Johnson is currently admitted for R hemothorax s/p thoracotomy. He remains moderate to high risk due to potential for worsening clinical status. Mr Johnson is feeling OK. Prednisone has helped breathing. Walking around some. No fever or chills. Exam Alert. Comfortable Mucus membranes dry Heart irreg Lungs - rales on R. Abd soft. I/P 1. COPD exac 2. Hemothorax Further diagnoses and plan as above
--- NOTE | 2017-11-16 17:37 | Pulmonology Progress Note ---
Date of Encounter: 11/16/17 Time of Encounter: 10:45 Assessment and Plan (1) COPD (chronic obstructive pulmonary disease) Current Visit: Yes Status: Chronic Patient was having more shortness of breath last night and he thinks it might be related to his sinus congestion and a trial of Flonase and also may need to change nasal cannula to the mask for oxygen delivery to keep his SPO2 around 90% . Also due to his underlying severe COPD we will treat him with 5 days of prednisone and continue bronchodilators. Encouraged him to continue incentive spirometry. If his symptoms worsened then he will need to use noninvasive ventilation. It is also important to remember that patient is not on anticoagulation but he had IVC filter and if he started to have significant hypoxemia then we need to consider CT angiogram to make sure he has no pulmonary embolism. I will continue follow-up. 11/16 patient has responded to the treatment and to feel systemic steroid has helped him to continue for the short course. If his condition worsen after that course perhaps he would need to be on a longer term off using systemic steroid. Discussed with patient and also his at the bedside. We will follow-up when necessary and discussed with primary team is called for any questions. Qualifiers: COPD type: COPD with acute exacerbation Qualified Code(s): J44.1 - Chronic obstructive pulmonary disease with (acute) exacerbation (2) Spontaneous pneumothorax Current Visit: No Status: Acute Subjective Principal diagnosis: Hemothorax Interval history: Patient is feeling much better with systemic steroid. Objective PUL Vital signs: Last Vital Signs Temp 97.9 F 11/16/17 15:22 Pulse 88 11/16/17 15:22 Resp 18 11/16/17 16:13 BP 125/82 11/16/17 15:22 Pulse Ox 93 11/16/17 16:13 General appearance: no acute distress Eyes: nonicteric Neck: supple Effort: normal Auscultation: bilateral: diminished breath sounds, rhonchi Percussion: bilateral: not dull Cardiovascular: regular rate and rhythm Gastrointestinal: normoactive bowel sounds Extremities: no cyanosis, edema normal mental status, non-focal exam mood appropriate Results - Laboratory Findings CBC and BMP: 11/16/17 04:20 11/16/17 04:20 ABG ABG pH 7.40 pH Units (7.32-7.45) 11/12/17 04:11 ABG pCO2 42 mmHg (35-45) 11/12/17 04:11 ABG pO2 122 mmHg (85-104) H 11/12/17 04:11 ABG O2 Saturation 99 % (95-98) H 11/12/17 04:11 PT/INR, D-dimer PT 12.7 Seconds (9.4-12.1) H 11/12/17 10:16 Abnormal lab findings: Abnormal lab results Hgb 11.3 g/dL (12.9-16.9) L D 11/16/17 04:20 Hct 36.6 % (37.5-50.1) L 11/16/17 04:20 MCH 26.8 pg (28.0-33.3) L 11/16/17 04:20 MCHC 30.9 g/dL (31.6-35.5) L 11/16/17 04:20 RDW 16.5 % (11.5-14.5) H 11/16/17 04:20 Nucleated RBCs/100 WBC 0.2 /100 WBC (0) H 11/15/17 06:00 PT 12.7 Seconds (9.4-12.1) H 11/12/17 10:16 ABG pO2 122 mmHg (85-104) H 11/12/17 04:11 ABG Total CO2 27 mEq/L (20-26) H 11/12/17 04:11 ABG O2 Saturation 99 % (95-98) H 11/12/17 04:11 VBG pCO2 54 mmHg (41-51) H 11/14/17 07:43 VBG pO2 53 mmHg (25-50) H 11/14/17 07:43 VBG HCO3 31 mEq/L (21-27) H 11/14/17 07:43 Carbon Dioxide 32 mEq/L (23-29) H 11/16/17 04:20 Creatinine 0.64 mg/dL (0.70-1.30) L 11/16/17 04:20 BUN/Creatinine Ratio 27 (6-26) H 11/16/17 04:20 POC Glucose 116 (58-89) H 11/14/17 19:37 Lactic Acid < 0.2 mmol/L (0.5-2.2) L 11/11/17 08:51 Calcium 8.3 mg/dL (8.6-10.3) L 11/16/17 04:20 Phosphorus 2.3 mg/dL (2.7-4.5) L 11/14/17 04:22 Troponin I 0.05 ng/mL (< 0.04) H* 11/11/17 02:12 Nasal Screen MRSA (PCR) Positive (Negative) A 11/16/17 09:50 - Microbiology Findings Microbiology Findings: Microbiology, Last 48 Hours 11/11/17 10:29 Blood Culture - Final Peripheral Venipuncture No growth. 11/11/17 08:51 Blood Culture - Final Central Venous Catheter No growth. - Clinical Findings Intake & Output: Intake & Output 11/16/17 11/16/17 11/16/17 07:59 15:59 23:59 Intake Total 240 / 240 660 / 660 Output Total 150 / 150 330 / 330 Balance 90 / 90 330 / 330 Weight 79.9 kg - VTE Documentation of Mechanical Device: Intermittent pneumatic compression device Consult Discharge Plan - Plan Referrals: Nga Blackwell MD [Partnered Physician] - 12/13/17 1:00 pm Eleazar Kee CNP [Primary Care Provider] - 12/06/17 9:30 am
[2017-11-16] MEDS: Nystatin Cream 15 GM TUBE TP SCH (19:36)
[2017-11-16] MEDS: *HR* OxyCODONE/APAP 5/325 TABLET PO PRN (22:28)
[2017-11-16] MEDS: Temazepam 15 MG CAPSULE PO PRN (22:28)
[2017-11-17] MEDS: Ipratropium/Albuterol Neb 3 ML IH SCH ×6 (03:38→19:50)
[2017-11-17] MEDS: *HR* HYDROcodone/Acet 10/325 mg TABLET PO PRN ×3 (05:00→13:47)
[2017-11-17 05:25] LABS: Hematocrit 30.1 % (37.5-50.1); Mean Corpuscular HGB Conc 31.6 g/dL (31.6-35.5); Mean Corpuscular Hemoglobin 27.6 pg (28.0-33.3); Mean Corpuscular Volume 87.5 fL (83.0-100.0); Mean Platelet Volume 9.8 fL (9.4-12.4); Platelet Count 223 K/mcL (140-400); Red Blood Count 3.44 M/mcL (4.19-5.50); Red Cell Distribution Width 16.6 % (11.5-14.5)
[2017-11-17 05:32] LABS: Hemoglobin 9.5 g/dL (12.9-16.9)
--- NOTE | 2017-11-17 07:50 | Cardiothoracic Progress Note ---
Date of Encounter: 11/17/17 Time of Encounter: 07:48 - Assessment and plan (1) Hemothorax on right Current Visit: Yes Status: Acute The patient remained hemodynamically stable overnight and he believes that his breathing has improved. The patient will increase his activity today. The chest tubes should remain on suction. The assessment and plan as outlined above was discussed with the patient and/or family members who expressed understanding and agreement. All questions were answered. - Subjective Procedure(s) Performed: POD#7 S/P Right thoracotomy with evacuation of hematoma Interval history: The patient remained hemodynamically stable overnight. He believes his breathing continues to improve. His chest tube output is minimal without air leak. Vital Signs, Last 4 Hours Temp Pulse Resp BP Pulse Ox 11/17/17 07:28 98.5 F 69 15 142/97 95 11/17/17 05:05 67 Oxgyen Flow Rate Oxygen Flow Rate (LPM) 4 Clinical Data, last 8 Hours Output, Chest Tube Drainage 0 Amount [right anterior] Output, Chest Tube Drainage 0 Amount [right anterior] Output, Chest Tube Drainage 0 Amount [Right Posterior Chest] Output, Chest Tube Drainage 0 Amount [Right Posterior Chest] Weight 11/15/17 11/16/17 11/17/17 23:59 23:59 23:59 Weight 80.6 kg 79.9 kg - Physical Examination General: Conversant, No Apparent Distress Neck: No JVD, Normal carotid pulses Cardiac: Reg Rate and Rhythm, Normal S1 and S2, No Murmur Incision: No signs of infection, Dry/intact dressing Chest tubes: Minimal drainage, Other (No air leak) Lungs: Normal Breath Sounds, No Wheeze, Rales, Rhonchi Neuro: Alert and responsive, No focal deficits noted Vascular: Normal capillary refill Extremities: No Clubbing, No Cyanosis, No Edema - Labs 11/17/17 05:10 11/16/17 04:20 Lab Results, Last 24 hours 11/17/17 05:10 WBC 9.2 D Hgb 9.5 L D Hct 30.1 L Plt Count 223 - Imaging Chest Xray: image reviewed (Possible small right basilar pneumothorax, improved. ) - VTE Documentation of Mechanical Device: Intermittent pneumatic compression device Consult Discharge Plan - Plan Referrals: Nga Blackwell MD [Partnered Physician] - 12/13/17 1:00 pm Eleazar Kee CNP [Primary Care Provider] - 12/06/17 9:30 am
[2017-11-17] MEDS: Budesonide/Formoterol 80/4.5 MDI IH SCH ×3 (07:52→19:51)
[2017-11-17] MEDS: predniSONE 20 MG TABLET PO SCH (08:11)
[2017-11-17] MEDS: *HR* Amiodarone 200 MG TABLET PO SCH (08:12)
[2017-11-17] MEDS: Fluticasone Propionate Nasal 50 MCG/SPRAY BOTTLE NS SCH (08:12)
[2017-11-17] MEDS: Furosemide 40 MG TABLET PO SCH (08:12)
[2017-11-17] MEDS: *HR* Morphine 2 MG/ML SYRINGE IVP PRN ×4 (08:13→18:22)
[2017-11-17] MEDS ORDERED: Lactulose Oral Soln 20 GM/30 ML UDC PO PRN (09:03)
[2017-11-17 10:48] LABS: BUN/Creatinine Ratio 28 (6-26); Blood Urea Nitrogen 22 mg/dL (8-23); Calcium 8.6 mg/dL (8.6-10.3); Carbon Dioxide 31 mEq/L (23-29); Chloride 103 mEq/L (98-107); Glucose 122 mg/dL (70-105); Osmolality,Calculated 293 (280-300); Potassium 4.2 mEq/L (3.5-5.1); Sodium 139 mEq/L (136-145); eGFR For African Americans > 60 (> 60); eGFR For Non-African Americans > 60 (> 60)
--- NOTE | 2017-11-17 13:18 | Internal Med Progress Note ---
Date of Encounter: 11/17/17 Time of Encounter: 10:00 - Assessment and plan (1) Acute and chronic respiratory failure with hypoxia Current Visit: Yes Status: Acute Assessment and plan: - Has had improvement with addition of prednisone Continue oxygen supplementation Wean as able Increase activity Anticipate chest tubes will be at water seal tomorrow. (2) Anemia Current Visit: Yes Status: Chronic Assessment and plan: Hemoglobin has remained 8-9s. Following Qualifiers: Anemia type: iron deficiency Iron deficiency anemia type: chronic blood loss Qualified Code(s): D50.0 - Iron deficiency anemia secondary to blood loss (chronic) (3) Atrial fibrillation Current Visit: Yes Status: Chronic Qualifiers: Atrial fibrillation type: chronic Qualified Code(s): I48.2 - Chronic atrial fibrillation (4) COPD (chronic obstructive pulmonary disease) Current Visit: Yes Status: Chronic Assessment and plan: - Continue prednisone, Symbicort, scheduled bronchodilators and supplemental oxygen. Qualifiers: COPD type: COPD with acute exacerbation Qualified Code(s): J44.1 - Chronic obstructive pulmonary disease with (acute) exacerbation (5) CAD (coronary artery disease) Current Visit: Yes Status: Chronic Assessment and plan: - Status post CABG in August 2014. - Continue metoprolol, Lipitor and prn nitroglycerin. Qualifiers: Coronary Disease-Associated Artery/Lesion type: [place] artery [place] vs. transplanted heart: [place] heart Associated angina: without angina Qualified Code(s): I25.10 - Atherosclerotic heart disease of [place] coronary artery without angina pectoris (6) Hemothorax on right Current Visit: Yes Status: Acute Assessment and plan: - CT chest on 11/10/17 found right hydropneumothorax with chest tube remaining in place and significant increase in volume of complex pleural fluid in the right chest, evidence of hemothorax. - Status post right posterior lateral thoracotomy with evacuation of hematoma on 11/11/17. POD#6 - Intraoperative findings of a large amount of loculated, organized hematoma along the diaphragm, right lateral chest wall, and right apex. A loculated serosanguineous fluid flexion was also identified above the diaphragm and removed. - 70 mL of chest tube drainage for whole day yesterday. - Hold anticoagulation. - Management per cardiothoracic surgery. Anticipate water seal tomorrow. - Subjective Interval history: Mr Johnson is currently admitted for hemothorax s/p thoracotomy. He remains moderate to high risk due to potential for worsening clinical status. Mr Johnson is having some difficulty with constipation. Pain is controlled. No fever or chills. Breathing is better after prednisone. - Constitutional Vitals: Temp Pulse Resp BP Pulse Ox 98.3 F 67 17 135/105 96 11/17/17 11:16 11/17/17 12:10 11/17/17 11:16 11/17/17 11:16 11/17/17 11:16 General appearance: Present: cooperative, A&O X 3, answers questions appropriately - Head Head exam: Present: normocephalic - Eye Eye exam: Present: EOMI, conjuntiva pink - ENT ENT exam: Present: mucous membranes dry - Respiratory Respiratory exam: Present: decreased breath sounds Additional comments: Few scattered rhonchi bilaterally. - Cardiovascular Cardiovascular exam: Present: irregular rhythm. Absent: tachycardia - GI/Abdominal GI/Abdominal exam: Present: soft. Absent: tenderness - Extremities Exam Extremities exam: Present: warm. Absent: tenderness - Neurological Exam Neurological exam: Present: alert, oriented X3, no focal deficits - Skin Skin exam: Present: warm. Absent: rash Internal Medicine: Result - Labs CBC & Chem 7: 11/17/17 05:10 11/17/17 05:10 Labs: Short CBC 11/17/17 Range/Units 05:10 WBC 9.2 D (4.3-11.1) K/mcL Hgb 9.5 L D (12.9-16.9) g/dL Hct 30.1 L (37.5-50.1) % Plt Count 223 (140-400) K/mcL [facility] 11/17/17 05:10 Sodium 139 Potassium 4.2 Chloride 103 Carbon Dioxide 31 H BUN 22 Creatinine 0.80 Glucose 122 H Calcium 8.6 - ABG Interpretation ABG results: ABG ABG pH 7.40 pH Units (7.32-7.45) 11/12/17 04:11 ABG pCO2 42 mmHg (35-45) 11/12/17 04:11 ABG pO2 122 mmHg (85-104) H 11/12/17 04:11 ABG O2 Saturation 99 % (95-98) H 11/12/17 04:11 PT/INR, D-dimer PT 12.7 Seconds (9.4-12.1) H 11/12/17 10:16 - Impressions Impressions Chest X-Ray 11/17/17 06:00 IMPRESSION: 1. No significant change from prior exam. Stable small right apical pneumothorax with two right chest tubes. D/ / 11/17/2017 08:17:10 Juan Lraa MD / [facility] Interpreting Provider: Juan Lara MD - VTE Documentation of Mechanical Device: Intermittent pneumatic compression device Consult Discharge Plan - Plan Referrals: Nga Blackwell MD [Partnered Physician] - 12/13/17 1:00 pm Eleazar Kee CNP [Primary Care Provider] - 12/06/17 9:30 am
[2017-11-17] MEDS: Nystatin Cream 15 GM TUBE TP SCH ×2 (13:47→22:20)
[2017-11-17] MEDS ORDERED: 0.9 % Sodium Chloride 1,000 ML ONE ×2 (21:47→21:57)
[2017-11-17 21:56] LABS: Basophils % 0.1 %; Eosinophils % 0.1 %; Immature Platelets 3.1 % (1.1-6.1); Lymphocytes # 1.3 K/mcL (0.6-4.6); Lymphocytes % 9.5 %; Mean Corpuscular HGB Conc 31.4 g/dL (31.6-35.5); Mean Corpuscular Hemoglobin 28.3 pg (28.0-33.3); Mean Corpuscular Volume 90.2 fL (83.0-100.0); Mean Platelet Volume 9.9 fL (9.4-12.4); Monocytes # 1.6 K/mcL (0.0-1.3); Monocytes % 11.5 %; Platelet Count 286 K/mcL (140-400); Red Blood Count 2.44 M/mcL (4.19-5.50); Red Cell Distribution Width 16.5 % (11.5-14.5); Segmented Neutrophils % 77.8 %
[2017-11-17 21:59] LABS: Hemoglobin 6.9 g/dL (12.9-16.9)
[2017-11-17] MEDS ORDERED: 0.9 % Sodium Chloride 1,000 ML IVC SCH (22:00)
[2017-11-17 22:02] LABS: INR 1.2; Prothrombin Time 12.6 Seconds (9.4-12.1)
[2017-11-17 22:04] LABS: Activated Partial Thrombo Time 24.9 Seconds (26.0-36.0)
[2017-11-17 22:22] LABS: BUN/Creatinine Ratio 29 (6-26); Blood Urea Nitrogen 29 mg/dL (8-23); Carbon Dioxide 31 mEq/L (23-29); Chloride 102 mEq/L (98-107); Glucose 127 mg/dL (70-105); Magnesium 1.7 mg/dL (1.6-2.6); Osmolality,Calculated 291 (280-300); Phosphorous 3.2 mg/dL (2.7-4.5); Potassium 4.2 mEq/L (3.5-5.1); Sodium 137 mEq/L (136-145); eGFR For African Americans > 60 (> 60); eGFR For Non-African Americans > 60 (> 60)
[2017-11-17] MEDS ORDERED: Heparin 1,000 UNITS/500 mL 500 ML ONE (22:35)
[2017-11-17] MEDS ORDERED: *HR* Rocuronium Bromide 50 MG/5 ML VIAL ONE (22:41)
[2017-11-17] MEDS ORDERED: *HR* Phenylephrine 10 MG/ML VIAL ONE (22:41)
[2017-11-17] MEDS ORDERED: *HR* Etomidate 20 MG/10 ML AMPUL IVP ONE (22:41)
[2017-11-17] MEDS ORDERED: *HR* Midazolam HCl 5 MG/5 ML VIAL IVP ONE ×3 (22:43→23:59)
[2017-11-17] MEDS ORDERED: *HR* FentaNYL (PF) 250 MCG/5 ML VIAL ONE ×2 (22:43→23:59)
--- NOTE | 2017-11-17 22:54 | Anesthesia Evaluation PreOp ---
Date of Encounter: 11/17/17 Time of Encounter: 22:51 - Past History Planned Operation: right thoracotomy Cardiac History: CHF, HTN, Hyperlipidemia, Arrhythmia (a-fib), Cardiac Surgery, Other (cardiomyopathy) Pulmonary History: Former smoker, COPD WORKPLACE RELATIONS ADVISER History: Denies Any Significant HX Other Medical History: Denies Any Significant HX Anesthesia History: No Prior Anesthetic Complications, Past Anesthesia Alcohol Use: none Drug use: none Medications and Allergies Aspirin [Adult Low Dose Aspirin EC] 81 mg PO DAILY 02/02/16 [History] Atorvastatin Calcium [Lipitor] 80 mg PO DAILY 02/02/16 [History] Nitroglycerin [Nitrostat] 0.4 mg SL AD PRN 07/30/16 [History] Amiodarone [Cordarone] 200 mg PO DAILY 04/22/17 [History] Budesonide/Formoterol 80/4.5 [Symbicort 80/4.5] 2 puff IH BID 10/05/17 [History ] Calcium Polycarbophil [Fibercon] 625 mg PO BID PRN 10/05/17 [History] Ipratropium/Albuterol Neb [Duoneb] 3 ml IH QID 10/05/17 [History] Lisinopril [Zestril] 20 mg PO DAILY 10/05/17 [History] Metoprolol [Lopressor] 12.5 mg PO BID 10/05/17 [History] Lactulose 20 gm PO DAILY PRN #30 udc 11/01/17 [Rx] Furosemide [Lasix] 40 mg PO BID 11/06/17 [History] HYDROcodone/Acet 10/325 mg [Milton 10-325 mg] 2 tab PO Q4HR PRN 7 Days #84 tablet 11/07/17 [Rx] Apixaban [Eliquis] 5 mg PO BID 11/11/17 [History] Morphine Immed Rel [Morphine Sulfate] 15 mg PO BID 11/11/17 [History] 3 Allergy/AdvReac Type Severity Reaction Status Date / Time No Known Allergies Allergy Verified 11/06/17 11:37 - Meds/Allergy Pre-op Review Medications Reviewed: Yes Allergies Reviewed: Yes Beta Blockers on Current Med List: Yes If Beta Blockers taken, Date/Time (Last Dose taken): held tonight for BP Anesthesia Results - Labs 11/17/17 21:47 11/17/17 21:47 - Imaging Additional studies: CT chest: IMPRESSION: 1. No evidence of arterial extravasation or arterial bleeding. No evidence of acute pulmonary embolism or pseudo aneurysm of the pulmonary artery. 2. New, likely hemorrhagic right pleural effusion. This likely accounts for bleeding in the chest tubes however, no evidence of active arterial bleeding. Anesthesia Exam Selected Entries 11/17/17 22:32 Temperature 97.9 F Pulse Rate 78 Respiratory Rate 22 Blood Pressure 107/71 Blood Pressure Mean 83 O2 Sat by Pulse Oximetry 94 NPO (# of Hours): 8 - HEENT Pupil (Motor): EOMI Mallampati: II Teeth: Edentulous Oral Opening: Greater than 3 - WORKPLACE RELATIONS ADVISER LOC: Oriented WORKPLACE RELATIONS ADVISER Motor: Normal RUE, Normal LUE, Normal RLE, Normal LLE, Normal Face WORKPLACE RELATIONS ADVISER Sensory: Normal: RUE, LUE, RLE, LLE, Face - Cardiac Rhythm: Regular Murmur: None - Pulmonary Breath Sounds: bilateral Clear Respiratory Effort: Symmetrical Anesthesia Assess/Plan ASA Score: 4, E Modified Isom Scale for Level of Consciousness: Cooperative, oriented, and tranquil Anesthetic Plan: General Monitoring Plan: Standard Monitors, A-Line Recovery Plan: ICU (agrees to GA and a-line)
[2017-11-17] MEDS ORDERED: Vancomycin 1,000 MG VIAL ONE (22:58)
[2017-11-17] MEDS ORDERED: Norepinephrine 4 MG in D5% in Water 250 ML IVC SCH (23:30)
[2017-11-17] MEDS ORDERED: Vancomycin 1,000 MG in D5% in Water 250 ML IVPB ONE (23:40)
--- NOTE | 2017-11-17 23:53 | Anesthesia Procedures ---
Date of Encounter: 11/17/17 Time of Encounter: 23:05 Procedures: Anesthesia - Arterial Line Consent obtained: written consent Time out performed: Yes Sedation: Versed (mg): 3 Sedation: Fentanyl (mcg): 2 Supplemental Oxygen via Nasal Cannula (L/min): 2 Size (Gauge): 20 Length (inches): 1 3/4 Technique Used: sterile prep, guide wire technique, direct puncture technique Post-Procedure: line taped into place, dry sterile dressing placed Patient tolerated procedure: well, no complications Complications: none Site: Radial L (easy one attempt) - Peripheral Line Forearm L Consent obtained: consent not possible/implied Time out performed: No Skin cleansed in sterile fashion: Yes Size: 18 IV secured and dressing applied: Yes Patient tolerated procedure: well Additional comments: patient came fromICU with 18g iv in right upper arm. pushed meds (versed, fentanyl and etomidate). Patient without response to meds so assume infiltrated. Nedw iv placed and patient responds to meds.
[2017-11-18] MEDS: Ipratropium/Albuterol Neb 3 ML IH SCH ×7 (00:01→23:41)
[2017-11-18] MEDS ORDERED: *HR* Rocuronium Bromide 50 MG/5 ML VIAL ONE (00:23)
--- NOTE | 2017-11-18 01:00 | Operative Note ---
Date of procedure: 11/18/17 Pre-op diagnosis: Right hemothorax Post-op diagnosis: same Procedure: 1. Right posterior lateral thoracotomy. 2. Evacuation of right hemothorax. 3. Ligation of bleeding intercostal artery. Implants: None. Complications: None. Anesthesia: DOMA Surgeon: Nga Blackwell Was there an expanded duty dental assistant present: No Estimated blood loss (cc): 750 Specimen: None. Condition: stable Disposition: ICU Procedure in Detail: INDICATIONS FOR OPERATION: The patient is a 62 year old man with multiple medical problems including CAD, chronic atrial fibrillation, hypertension, COPD, and recent MRSA pneumonia. The patient had been admitted to [facility] on October 04, 2017 for treatment of a right spontaneous pneumothorax. The patient had a prolonged air leak and during the workup was found to have stable right lung bulla. He underwent a right thoracotomy and bleb resection on October 19, 2017. His postoperative course was long and complicated by a prolonged postoperative air leak, postoperative respiratory insufficiency breath disease COPD exacerbation) , and MRSA pneumonia. He was discharged home with a Heimlich valve on November 01, 2017. He returned to the [facility] on November 05, 2017 with chest pain. He had minimally elevated troponin I levels and was treated medically. He had an intermittent air leak at that time and the plan was to have him return to the office once the air leak and stopped. Today the patient reports that it to the emergency department complaining of bleeding around the chest tube site. I was contacted by the emergency room physician and it was decided that the chest tube site would be packed to help stop the blood flow since the patient was on Eliquis for chronic atrial fibrillation and bilateral DVTs. He was offered admission at that time; however, the family declined. He returned to the emergency department again this evening stating that he felt worse. Although there was no significant bleeding around the chest tube site, he did complain of some chest pressure. A chest x-ray showed a right apical fluid collection. Subsequent chest CT revealed a right hydropneumothorax with significant increase in the volume of complex pleural fluid. The patient underwent an urgent right thoracotomy and evacuation of hematoma on October. At that operation he had a large amount of clot within the right hemithorax; however, no acute bleed was noted. The patient remained intubated for 2 days, but has been extubated and improving clinically. This evening after having a bowel movement, the patient had immediate drainage of 800 mL of from the chest tubes. A chest CTA was performed which revealed obvious source of bleeding. The patient was taken to the operating room for exploration. FINDINGS AT OPERATION: The patient had a large amount of clot within the right hemithorax. Examination of the right apex revealed a bleeding intercostal artery located posteriorly. No other bleeding sources were noted. DESCRIPTION OF OPERATION: After obtaining informed consent from the patient, he was taken to the operative room where satisfactory general tracheal anesthetic was induced. A double-lumen endotracheal tube was inserted as were other appropriate monitoring lines. The patient was turned in the left lateral decubitus position and his right lateral chest was prepped and draped in a sterile fashion. The dylan were removed and the thoracotomy incision was reopened. No fluid collections were noted in the subcutaneous tissue or muscle layers. The fifth intercostal space was re-opened and a large amount of clot was encountered. The clot was removed and a general exploration revealed bleeding from the apex. Once more clot was removed and the area exposed, an intercostal artery was noted to be bleeding briskly. Attempts were made to place a suture ligature in this region; however, it was inaccessible due to the distance between the thoracotomy incision and the bleeding vessel. Hemoclips were then used to obtain hemostasis of the intercostal artery. A general exploration was performed and no additional bleeding sites were noted. The chest was irrigated with 3 L of saline solution. The original chest tubes were cleared and kept in place. The ribs were reapproximated using #1 Vicryl suture and the serratus anterior muscle group, latissimus dorsi muscle group, and subcutaneous tissue were reapproximated using running Vicryl sutures. The skin edges were reapproximated using dylan. Sterile dressings were applied. The patient was transferred to the ICU in satisfactory postoperative condition. There were no intraoperative complications, and instrument, needle, and sponge count were correct at end of operation.
[2017-11-18] MEDS ORDERED: 0.9 % Sodium Chloride 1,000 ML IVC SCH ×2 (01:17→07:40)
[2017-11-18] MEDS ORDERED: FentaNYL (PF) 1,000 MCG in 0.9 % Sodium Chloride 80 ML IVC SCH ×3 (01:45→07:40)
[2017-11-18 02:01] LABS: Basophils % 0.2 %; Eosinophils # 0.1 K/mcL (0.0-0.6); Eosinophils % 0.3 %; Hematocrit 28.9 % (37.5-50.1); Immature Granulocytes % 3.2 % (0-4); Lymphocytes # 1.6 K/mcL (0.6-4.6); Lymphocytes % 8.2 %; Mean Corpuscular HGB Conc 31.8 g/dL (31.6-35.5); Mean Corpuscular Hemoglobin 27.8 pg (28.0-33.3); Mean Corpuscular Volume 87.3 fL (83.0-100.0); Mean Platelet Volume 9.4 fL (9.4-12.4); Monocytes # 2.1 K/mcL (0.0-1.3); Monocytes % 11.1 %; Neutrophils # 14.7 K/mcL (1.6-8.9); Platelet Count 224 K/mcL (140-400); Red Blood Count 3.31 M/mcL (4.19-5.50); Red Cell Distribution Width 16.7 % (11.5-14.5)
[2017-11-18 02:15] LABS: Hemoglobin 9.2 g/dL (12.9-16.9)
[2017-11-18] MEDS: *HR* Morphine 2 MG/ML SYRINGE IVP PRN (02:20)
[2017-11-18 02:53] LABS: ABG Base Excess 5 mEq/L (-2 to 3); ABG HCO3 31 mEq/L (21-27); ABG Oxygen Saturation 93 % (95-98); ABG PCO2 57 mmHg (35-45); ABG PH 7.35 pH Units (7.32-7.45); ABG PO2 72 mmHg (85-104); ABG TCO2 33 mEq/L (20-26); Blood Gas Modality VC; Blood Gas PEEP 5 cm H2O; Blood Gas Respiration Rate 12; Blood Gas VT 600 cc
[2017-11-18 03:01] LABS: BUN/Creatinine Ratio 27 (6-26); Blood Urea Nitrogen 31 mg/dL (8-23); Calcium 7.9 mg/dL (8.6-10.3); Carbon Dioxide 29 mEq/L (23-29); Chloride 104 mEq/L (98-107); Glucose 162 mg/dL (70-105); Osmolality,Calculated 294 (280-300); Potassium 4.4 mEq/L (3.5-5.1); Sodium 137 mEq/L (136-145); eGFR For African Americans > 60 (> 60); eGFR For Non-African Americans > 60 (> 60)
[2017-11-18 05:39] LABS: Hematocrit 27.5 % (37.5-50.1); Hemoglobin 8.9 g/dL (12.9-16.9); Mean Corpuscular HGB Conc 32.4 g/dL (31.6-35.5); Mean Corpuscular Hemoglobin 27.8 pg (28.0-33.3); Mean Corpuscular Volume 85.9 fL (83.0-100.0); Mean Platelet Volume 9.8 fL (9.4-12.4); Platelet Count 200 K/mcL (140-400); Red Cell Distribution Width 16.9 % (11.5-14.5)
[2017-11-18 06:00] LABS: Alanine Aminotransferase 16 Units/L (7-52); Albumin 2.5 g/dL (3.5-5.7); Albumin/Globulin Ratio 1.2 (1.1-2.2); Alkaline Phosphatase 53 Units/L (34-104); Aspartate Amino Transferase 13 Units/L (13-39); BUN/Creatinine Ratio 26 (6-26); Bilirubin,Total 0.4 mg/dL (0.3-1.0); Blood Urea Nitrogen 32 mg/dL (8-23); Calcium 7.8 mg/dL (8.6-10.3); Carbon Dioxide 29 mEq/L (23-29); Chloride 104 mEq/L (98-107); Globulin 2.1 g/dL (2.4-3.5); Glucose 135 mg/dL (70-105); Magnesium 1.6 mg/dL (1.6-2.6); Osmolality,Calculated 293 (280-300); Potassium 4.5 mEq/L (3.5-5.1); Sodium 137 mEq/L (136-145); Total Protein 4.6 g/dL (6.4-8.9); eGFR For African Americans > 60 (> 60); eGFR For Non-African Americans 60 (> 60)
[2017-11-18] MEDS ORDERED: Acetaminophen 325 MG TABLET PO PRN (07:40)
[2017-11-18] MEDS ORDERED: Temazepam 15 MG CAPSULE PO PRN (07:40)
[2017-11-18] MEDS ORDERED: Naloxone 0.4 MG/ML INJ IVP PRN (07:40)
[2017-11-18] MEDS ORDERED: Nitroglycerin 0.4 MG TAB.SUBL SL PRN (07:40)
[2017-11-18] MEDS ORDERED: Norepinephrine 4 MG in D5% in Water 250 ML IVC SCH (07:40)
[2017-11-18] MEDS ORDERED: Lactulose Oral Soln 20 GM/30 ML UDC PO PRN (07:40)
[2017-11-18] MEDS ORDERED: *HR* OxyCODONE/APAP 5/325 TABLET PO PRN (07:40)
[2017-11-18] MEDS: Furosemide 40 MG TABLET PO SCH (09:10)
[2017-11-18] MEDS: predniSONE 20 MG TABLET PO SCH (09:10)
[2017-11-18] MEDS: *HR* Amiodarone 200 MG TABLET PO SCH (09:10)
[2017-11-18] MEDS: Nystatin Cream 15 GM TUBE TP SCH ×2 (09:39→20:32)
--- NOTE | 2017-11-18 09:53 | Cardiothoracic Progress Note ---
Date of Encounter: 11/18/17 Time of Encounter: 09:50 - Assessment and plan (1) Hemothorax on right Current Visit: Yes Status: Acute The patient remained hemodynamically stable overnight. There has been no further bleeding from the intercostal vessels. He remains intubated and sedated. He is on Levothroid drip to increase vascular tone maintain adequate blood pressure. This will be weaned as tolerated. The chest tubes should remain on suction. The assessment and plan as outlined above was discussed with the patient and/or family members who expressed understanding and agreement. All questions were answered. - Subjective Procedure(s) Performed: POD#8 S/P Right thoracotomy with evacuation of hematoma POD#1 S/P Second right thoracotomy with evacuation of hematoma Interval history: The patient remained hemodynamically stable overnight. He is currently intubated and sedated. He is on Levothroid drip to increase vascular tone and maintain an adequate blood pressure. His chest tube output is minimal without air leak. Vital Signs, Last 4 Hours Temp Pulse Resp BP Pulse Ox 11/18/17 08:00 99.2 F 86 16 104/53 95 11/18/17 07:57 16 103/56 95 11/18/17 07:00 87 16 94/53 95 11/18/17 06:06 16 103/56 95 11/18/17 06:00 87 15 106/56 96 Oxgyen Flow Rate Oxygen Flow Rate (LPM) 6 Clinical Data, last 8 Hours Output, Chest Tube Drainage 19 Amount [RC2] Output, Chest Tube Drainage 14 Amount [RC2] Output, Chest Tube Drainage 0 Amount [RC1] Output, Chest Tube Drainage 31 Amount [RC1] Weight 11/16/17 11/17/17 11/18/17 23:59 23:59 23:59 Weight 79.9 kg 83.9 kg - Physical Examination General: No Apparent Distress, Other (Intubated and sedated.) Neck: No JVD, Normal carotid pulses Cardiac: Normal S1 and S2, No Murmur, Other (Irregular rate and rhythm (atrial fibrillation)) Incision: No signs of infection, Dry/intact dressing Chest tubes: Minimal drainage, Air leak (Small, intermittent air leak), Other Lungs: Normal Breath Sounds, No Wheeze, Rales, Rhonchi Vascular: Normal capillary refill Extremities: No Clubbing, No Cyanosis, No Edema - Labs 11/18/17 05:28 11/18/17 05:28 Lab Results, Last 24 hours 11/17/17 11/17/17 11/17/17 05:10 21:47 21:47 WBC 14.1 H D Hgb 6.9 L D Hct 22.0 L Plt Count 286 INR 1.2 APTT 24.9 L Sodium 139 Potassium 4.2 Chloride 103 Carbon Dioxide 31 H BUN 22 Creatinine 0.80 Glucose 122 H Calcium 8.6 Magnesium Total Bilirubin AST ALT Alkaline Phosphatase 11/17/17 11/18/17 11/18/17 21:47 01:53 02:35 WBC 19.0 H Hgb 9.2 L D Hct 28.9 L Plt Count 224 INR APTT Sodium 137 137 Potassium 4.2 4.4 Chloride 102 104 Carbon Dioxide 31 H 29 BUN 29 H 31 H Creatinine 1.01 1.16 Glucose 127 H 162 H Calcium 8.0 L 7.9 L Magnesium 1.7 Total Bilirubin AST ALT Alkaline Phosphatase 11/18/17 11/18/17 05:28 05:28 WBC 18.0 H Hgb 8.9 L Hct 27.5 L Plt Count 200 INR APTT Sodium 137 Potassium 4.5 Chloride 104 Carbon Dioxide 29 BUN 32 H Creatinine 1.23 Glucose 135 H Calcium 7.8 L Magnesium 1.6 Total Bilirubin 0.4 AST 13 ALT 16 Alkaline Phosphatase 53 - Imaging Chest Xray: image reviewed (Right apical pneumothorax) - VTE Documentation of Mechanical Device: Intermittent pneumatic compression device Consult Discharge Plan - Plan Referrals: Nga Blackwell MD [Partnered Physician] - 12/13/17 1:00 pm Eleazar Kee CNP [Primary Care Provider] - 12/06/17 9:30 am
--- NOTE | 2017-11-18 11:39 | Pulmonology Progress Note ---
Date of Encounter: 11/18/17 Time of Encounter: 07:00 Assessment and Plan (1) Shock, postoperative Current Visit: Yes Status: Acute This is most likely multifactorial status post surgery and also blood loss and he is on low dose of Levophed. Transfuse albumin and hopefully that will help him to get off the Levophed. Qualifiers: Encounter type: initial encounter Postoperative shock type: unspecified shock type Qualified Code(s): T81.10XA - Postprocedural shock unspecified, initial encounter (2) Acute and chronic respiratory failure with hypoxia Current Visit: Yes Status: Acute There is no plan for spontaneous breathing trial and this was discussed with Dr. Blackwell. Concerned he recently had surgery and bleeding. (3) Hemothorax on right Current Visit: Yes Status: Resolved (4) COPD (chronic obstructive pulmonary disease) Current Visit: Yes Status: Chronic Patient was having more shortness of breath last night and he thinks it might be related to his sinus congestion and a trial of Flonase and also may need to change nasal cannula to the mask for oxygen delivery to keep his SPO2 around 90% . Also due to his underlying severe COPD we will treat him with 5 days of prednisone and continue bronchodilators. Encouraged him to continue incentive spirometry. If his symptoms worsened then he will need to use noninvasive ventilation. It is also important to remember that patient is not on anticoagulation but he had IVC filter and if he started to have significant hypoxemia then we need to consider CT angiogram to make sure he has no pulmonary embolism. I will continue follow-up. / patient has responded to the treatment and to feel systemic steroid has helped him to continue for the short course. If his condition worsen after that course perhaps he would need to be on a longer term off using systemic steroid. Discussed with patient and also his at the bedside. We will follow-up when necessary and discussed with primary team is called for any questions. Qualifiers: COPD type: COPD with acute exacerbation Qualified Code(s): J44.1 - Chronic obstructive pulmonary disease with (acute) exacerbation (5) Spontaneous pneumothorax Current Visit: No Status: Acute Subjective Principal diagnosis: Hemothorax Interval history: Patient status post thoracotomy and currently is on a ventilator and low dose Levophed. Objective PUL Vital signs: Last Vital Signs Temp 99.2 F 11/18/17 08:00 Pulse 95 11/18/17 11:00 Resp 20 11/18/17 11:00 BP 129/65 11/18/17 11:00 Pulse Ox 94 11/18/17 11:00 General appearance: no acute distress Eyes: nonicteric Neck: supple Auscultation: bilateral: diminished breath sounds (Chest tube) Percussion: bilateral: not dull Cardiovascular: regular rate and rhythm Gastrointestinal: normoactive bowel sounds Extremities: no cyanosis unable to assess due to mental status Ventilator Settings Ventilator Settings: Ventilator Settings, Last 8 Hours Ventilator Mode VC+ Ventilator Mode VC+ Ventilator Mode VC+ Ventilator Mode VC+ Ventilator Mode VC+ Ventilator Mode VC+ Ventilator Mode VC+ Ventilator Mode VC+ Ventilator Mode VC+ Ventilator Mode VC+ Ventilator Mode VC+ Ventilator Tidal Volume 600 Setting Ventilator Tidal Volume 600 Setting Ventilator Tidal Volume 600 Setting Ventilator Tidal Volume 600 Setting Ventilator Tidal Volume 600 Setting Ventilator Tidal Volume 600 Setting Ventilator Tidal Volume 600 Setting Ventilator Tidal Volume 600 Setting Ventilator Tidal Volume 600 Setting Ventilator Tidal Volume 660 Setting Ventilator Tidal Volume 600 Setting Ventilator Respiratory Rate 12 Setting Ventilator Respiratory Rate 12 Setting Ventilator Respiratory Rate 12 Setting Ventilator Respiratory Rate 12 Setting Ventilator Respiratory Rate 12 Setting Ventilator Respiratory Rate 12 Setting Ventilator Respiratory Rate 12 Setting Ventilator Respiratory Rate 12 Setting Ventilator Respiratory Rate 12 Setting Ventilator Respiratory Rate 12 Setting Ventilator Respiratory Rate 12 Setting Actual Respiratory Rate 20 Actual Respiratory Rate 20 Actual Respiratory Rate 18 Actual Respiratory Rate 16 Actual Respiratory Rate 17 Actual Respiratory Rate 16 Actual Respiratory Rate 17 Actual Respiratory Rate 17 Actual Respiratory Rate 17 Actual Respiratory Rate 16 Actual Respiratory Rate 18 Positive End Expiratory 5 Pressure Positive End Expiratory 5 Pressure Positive End Expiratory 5 Pressure Positive End Expiratory 5 Pressure Positive End Expiratory 5 Pressure Positive End Expiratory 5 Pressure Positive End Expiratory 5 Pressure Positive End Expiratory 5 Pressure Positive End Expiratory 5 Pressure Positive End Expiratory 5 Pressure Positive End Expiratory 5 Pressure Peak Inspiratory Airway 16 Pressure Peak Inspiratory Airway 14 Pressure Peak Inspiratory Airway 13 Pressure Peak Inspiratory Airway 13 Pressure Peak Inspiratory Airway 13 Pressure Peak Inspiratory Airway 13 Pressure Peak Inspiratory Airway 13 Pressure Peak Inspiratory Airway 12 Pressure Peak Inspiratory Airway 15 Pressure Peak Inspiratory Airway 13 Pressure Peak Inspiratory Airway 17 Pressure Results - Laboratory Findings CBC and BMP: 11/18/17 05:28 11/18/17 05:28 ABG ABG pH 7.35 pH Units (7.32-7.45) 11/18/17 02:49 ABG pCO2 57 mmHg (35-45) H 11/18/17 02:49 ABG pO2 72 mmHg (85-104) L 11/18/17 02:49 ABG O2 Saturation 93 % (95-98) L 11/18/17 02:49 PT/INR, D-dimer PT 12.6 Seconds (9.4-12.1) H 11/17/17 21:47 Abnormal lab findings: Abnormal lab results WBC 18.0 K/mcL (4.3-11.1) H 11/18/17 05:28 RBC 3.20 M/mcL (4.19-5.50) L 11/18/17 05:28 Hgb 8.9 g/dL (12.9-16.9) L 11/18/17 05:28 Hct 27.5 % (37.5-50.1) L 11/18/17 05:28 MCH 27.8 pg (28.0-33.3) L 11/18/17 05:28 RDW 16.9 % (11.5-14.5) H 11/18/17 05:28 Neutrophils # 14.7 K/mcL (1.6-8.9) H 11/18/17 01:53 Monocytes # 2.1 K/mcL (0.0-1.3) H 11/18/17 01:53 Nucleated RBCs/100 WBC 0.2 /100 WBC (0) H 11/15/17 06:00 PT 12.6 Seconds (9.4-12.1) H 11/17/17 21:47 APTT 24.9 Seconds (26.0-36.0) L 11/17/17 21:47 ABG pCO2 57 mmHg (35-45) H 11/18/17 02:49 ABG pO2 72 mmHg (85-104) L 11/18/17 02:49 ABG HCO3 31 mEq/L (21-27) H 11/18/17 02:49 ABG Total CO2 33 mEq/L (20-26) H 11/18/17 02:49 ABG O2 Saturation 93 % (95-98) L 11/18/17 02:49 ABG Base Excess 5 mEq/L (-2 to 3) H 11/18/17 02:49 VBG pCO2 54 mmHg (41-51) H 11/14/17 07:43 VBG pO2 53 mmHg (25-50) H 11/14/17 07:43 VBG HCO3 31 mEq/L (21-27) H 11/14/17 07:43 BUN 32 mg/dL (8-23) H 11/18/17 05:28 Glucose 135 mg/dL (70-105) H 11/18/17 05:28 POC Glucose 151 (58-89) H 11/18/17 00:56 Lactic Acid < 0.2 mmol/L (0.5-2.2) L 11/11/17 08:51 Calcium 7.8 mg/dL (8.6-10.3) L 11/18/17 05:28 Troponin I 0.05 ng/mL (< 0.04) H* 11/11/17 02:12 Serum Total Protein 4.6 g/dL (6.4-8.9) L 11/18/17 05:28 Albumin 2.5 g/dL (3.5-5.7) L 11/18/17 05:28 Globulin 2.1 g/dL (2.4-3.5) L 11/18/17 05:28 Nasal Screen MRSA (PCR) Positive (Negative) A 11/16/17 09:50 - Microbiology Findings Microbiology Findings: Microbiology, Last 48 Hours 11/11/17 10:29 Blood Culture - Final Peripheral Venipuncture No growth. - Diagnostic Findings Chest x-ray: report reviewed, image reviewed - Clinical Findings Intake & Output: Intake & Output 11/17/17 11/18/17 11/18/17 23:59 07:59 15:59 Intake Total 707 / 707 297.8 / 297.8 100 / 100 Output Total 1139 / 1139 125 / 125 Balance 707 / 707 -841.2 / -841.2 -25 / -25 Weight 83.9 kg - VTE Documentation of Mechanical Device: Intermittent pneumatic compression device Consult Discharge Plan - Plan Referrals: Nga Blackwell MD [Partnered Physician] - 12/13/17 1:00 pm Eleazar Kee CNP [Primary Care Provider] - 12/06/17 9:30 am
[2017-11-18] MEDS: Budesonide/Formoterol 80/4.5 MDI IH SCH ×2 (12:10→19:58)
[2017-11-18] MEDS: Fluticasone Propionate Nasal 50 MCG/SPRAY BOTTLE NS SCH (13:35)
[2017-11-19 03:48] LABS: Basophils % 0.1 %; Hematocrit 22.9 % (37.5-50.1); Hemoglobin 7.5 g/dL (12.9-16.9); Immature Granulocytes % 1.4 % (0-4); Lymphocytes # 1.4 K/mcL (0.6-4.6); Lymphocytes % 9.8 %; Mean Corpuscular HGB Conc 32.8 g/dL (31.6-35.5); Mean Corpuscular Hemoglobin 28.4 pg (28.0-33.3); Mean Corpuscular Volume 86.7 fL (83.0-100.0); Mean Platelet Volume 9.7 fL (9.4-12.4); Monocytes # 1.5 K/mcL (0.0-1.3); Monocytes % 10.6 %; Nucleated Red Blood Cells 0.1 /100 WBC (0); Platelet Count 182 K/mcL (140-400); Red Blood Count 2.64 M/mcL (4.19-5.50); Red Cell Distribution Width 17.2 % (11.5-14.5); Segmented Neutrophils % 78.1 %
[2017-11-19 04:07] LABS: BUN/Creatinine Ratio 34 (6-26); Blood Urea Nitrogen 29 mg/dL (8-23); Calcium 8.2 mg/dL (8.6-10.3); Carbon Dioxide 30 mEq/L (23-29); Chloride 105 mEq/L (98-107); Glucose 130 mg/dL (70-105); Osmolality,Calculated 296 (280-300); Potassium 4.5 mEq/L (3.5-5.1); Sodium 139 mEq/L (136-145); eGFR For African Americans > 60 (> 60); eGFR For Non-African Americans > 60 (> 60)
[2017-11-19] MEDS: Ipratropium/Albuterol Neb 3 ML IH SCH ×6 (04:22→23:53)
--- NOTE | 2017-11-19 07:32 | Cardiothoracic Progress Note ---
Date of Encounter: 11/19/17 Time of Encounter: 07:30 - Assessment and plan (1) Hemothorax on right Current Visit: Yes Status: Resolved The patient remained hemodynamically stable overnight. There has been no further bleeding from the intercostal vessels. The chest tubes should remain on suction. The patient will be extubated this morning if possible. The assessment and plan as outlined above was discussed with the patient and/or family members who expressed understanding and agreement. All questions were answered. - Subjective Procedure(s) Performed: POD#9 S/P Right thoracotomy with evacuation of hematoma POD#2 S/P Second right thoracotomy with evacuation of hematoma Interval history: The patient remained hemodynamically stable overnight. He is currently intubated and sedated. His chest tube output is minimal without air leak. Vital Signs, Last 4 Hours Temp Pulse Resp BP Pulse Ox 11/19/17 06:25 17 137/63 95 11/19/17 06:00 81 18 131/67 94 11/19/17 05:00 86 22 131/63 95 11/19/17 04:47 98.2 F 11/19/17 04:22 20 119/60 95 11/19/17 04:11 82 11/19/17 04:00 82 19 121/62 94 Oxgyen Flow Rate Oxygen Flow Rate (LPM) 6 Clinical Data, last 8 Hours Output, Chest Tube Drainage 42 Amount [RC2] Output, Chest Tube Drainage 26 Amount [RC2] Output, Chest Tube Drainage 9 Amount [RC1] Weight 11/17/17 11/18/17 11/19/17 23:59 23:59 23:59 Weight 83.9 kg 84.3 kg - Physical Examination General: No Apparent Distress, Other (Intubated and sedated) Neck: No JVD, Normal carotid pulses Cardiac: Normal S1 and S2, No Murmur, Other (Iregular rate and rhythm (atrial fibrillation)) Incision: No signs of infection, Dry/intact dressing Chest tubes: Minimal drainage, Other (No air leak) Lungs: Normal Breath Sounds, No Wheeze, Rales, Rhonchi Neuro: Alert and responsive, No focal deficits noted Vascular: Normal capillary refill Extremities: No Clubbing, No Cyanosis, No Edema - Labs 11/19/17 03:40 11/19/17 03:40 Lab Results, Last 24 hours 11/19/17 11/19/17 03:40 03:40 WBC 14.1 H Hgb 7.5 L Hct 22.9 L Plt Count 182 Sodium 139 Potassium 4.5 Chloride 105 Carbon Dioxide 30 H BUN 29 H Creatinine 0.86 Glucose 130 H Calcium 8.2 L - Imaging Chest Xray: image reviewed (Right apical pneumothorax.) - VTE Documentation of Mechanical Device: Intermittent pneumatic compression device Consult Discharge Plan - Plan Referrals: Nga Blackwell MD [Partnered Physician] - 12/13/17 1:00 pm Eleazar Kee CNP [Primary Care Provider] - 12/06/17 9:30 am
[2017-11-19] MEDS: predniSONE 20 MG TABLET PO SCH (07:42)
[2017-11-19] MEDS: *HR* Amiodarone 200 MG TABLET PO SCH (07:42)
[2017-11-19] MEDS: Furosemide 40 MG TABLET PO SCH (07:43)
[2017-11-19] MEDS: Nystatin Cream 15 GM TUBE TP SCH ×2 (07:44→21:21)
[2017-11-19] MEDS: Budesonide/Formoterol 80/4.5 MDI IH SCH ×2 (08:35→19:54)
[2017-11-19] MEDS ORDERED: 0.9 % Sodium Chloride 250 ML ONE (09:26)
[2017-11-19] MEDS: Fluticasone Propionate Nasal 50 MCG/SPRAY BOTTLE NS SCH (09:33)
[2017-11-19] MEDS: *HR* Morphine 2 MG/ML SYRINGE IVP PRN ×4 (11:35→20:58)
--- NOTE | 2017-11-19 11:57 | Anesthesia Evaluation Post Op ---
Date of Encounter: 11/19/17 Time of Encounter: 11:56 - Vital Signs Vital Signs: Selected Entries 11/19/17 11:00 Pulse Rate 89 Respiratory Rate 18 Blood Pressure 124/87 O2 Sat by Pulse Oximetry 93 Oxygen Flow Rate (LPM) 8 Oxygen Delivery Method High Flow Nasal Cannula - Lungs Lungs: Clear Ascult./Percussion - Airway Airway: Non-obstructed - Cardiovascular Regular Rate - Mental Status Mental Status: Alert & Oriented, Answers Appropriately - Pain Pain Scale: 3 Pain Scale used: Numeric (1 - 10) - Nausea Vomiting Nausea Vomiting: Not Present - Hydration Hydration: Tolerates oral liquids, Calderon catheter (no anesthesia issues)
[2017-11-19] MEDS: *HR* HYDROcodone/Acet 10/325 mg TABLET PO PRN ×3 (14:23→23:42)
--- NOTE | 2017-11-19 17:54 | Pulmonology Progress Note ---
Date of Encounter: 11/19/17 Time of Encounter: 07:30 Assessment and Plan (1) Acute and chronic respiratory failure with hypoxia Current Visit: Yes Status: Acute Patient has acute on chronic respiratory failure with hypoxia multifactorial , Right sided hemothorax which is resolving , COPD exacerbation , chronic diastolic heart failure to wean FIO2 to keep around SPO2 around 92% Spent 32 minutes of critical care time in medical decision making in support of vital organ function (2) COPD exacerbation Current Visit: No Status: Acute (3) Hemothorax Current Visit: Yes Status: Acute S/p thoractomy and chest tube drainage managment according to . (4) Atrial fibrillation Current Visit: Yes Status: Chronic To continue amiodarone and lopressor Qualifiers: Atrial fibrillation type: chronic Qualified Code(s): I48.2 - Chronic atrial fibrillation Subjective Principal diagnosis: Hemothorax Interval history: Patient is waking up appropriately following commands , Pulmonary status stable. Bleeding getting stable. Objective PUL Vital signs: Last Vital Signs Temp 97.5 F L 11/19/17 16:00 Pulse 82 11/19/17 17:00 Resp 24 11/19/17 17:00 BP 122/77 11/19/17 17:00 Pulse Ox 99 11/19/17 17:00 Auscultation: bilateral: diminished breath sounds Cardiovascular: irregular rhythm unable to assess due to mental status other (cannot be assesed due to sedation) Ventilator Settings Ventilator Settings: Ventilator Settings, Last 8 Hours Ventilator Mode VC+ Ventilator Tidal Volume 530 Setting Actual Respiratory Rate 21 Positive End Expiratory 5 Pressure Peak Inspiratory Airway 11 Pressure Results - Laboratory Findings CBC and BMP: 11/19/17 03:40 11/19/17 03:40 ABG ABG pH 7.35 pH Units (7.32-7.45) 11/18/17 02:49 ABG pCO2 57 mmHg (35-45) H 11/18/17 02:49 ABG pO2 72 mmHg (85-104) L 11/18/17 02:49 ABG O2 Saturation 93 % (95-98) L 11/18/17 02:49 PT/INR, D-dimer PT 12.6 Seconds (9.4-12.1) H 11/17/17 21:47 Abnormal lab findings: Abnormal lab results WBC 14.1 K/mcL (4.3-11.1) H 11/19/17 03:40 RBC 2.64 M/mcL (4.19-5.50) L 11/19/17 03:40 Hgb 7.5 g/dL (12.9-16.9) L 11/19/17 03:40 Hct 22.9 % (37.5-50.1) L 11/19/17 03:40 RDW 17.2 % (11.5-14.5) H 11/19/17 03:40 Neutrophils # 11.0 K/mcL (1.6-8.9) H 11/19/17 03:40 Monocytes # 1.5 K/mcL (0.0-1.3) H 11/19/17 03:40 Nucleated RBCs/100 WBC 0.1 /100 WBC (0) H 11/19/17 03:40 PT 12.6 Seconds (9.4-12.1) H 11/17/17 21:47 APTT 24.9 Seconds (26.0-36.0) L 11/17/17 21:47 ABG pCO2 57 mmHg (35-45) H 11/18/17 02:49 ABG pO2 72 mmHg (85-104) L 11/18/17 02:49 ABG HCO3 31 mEq/L (21-27) H 11/18/17 02:49 ABG Total CO2 33 mEq/L (20-26) H 11/18/17 02:49 ABG O2 Saturation 93 % (95-98) L 11/18/17 02:49 ABG Base Excess 5 mEq/L (-2 to 3) H 11/18/17 02:49 VBG pCO2 54 mmHg (41-51) H 11/14/17 07:43 VBG pO2 53 mmHg (25-50) H 11/14/17 07:43 VBG HCO3 31 mEq/L (21-27) H 11/14/17 07:43 Carbon Dioxide 30 mEq/L (23-29) H 11/19/17 03:40 BUN 29 mg/dL (8-23) H 11/19/17 03:40 BUN/Creatinine Ratio 34 (6-26) H 11/19/17 03:40 Glucose 130 mg/dL (70-105) H 11/19/17 03:40 POC Glucose 150 (58-89) H 11/18/17 23:48 Lactic Acid < 0.2 mmol/L (0.5-2.2) L 11/11/17 08:51 Calcium 8.2 mg/dL (8.6-10.3) L 11/19/17 03:40 Troponin I 0.05 ng/mL (< 0.04) H* 11/11/17 02:12 Serum Total Protein 4.6 g/dL (6.4-8.9) L 11/18/17 05:28 Albumin 2.5 g/dL (3.5-5.7) L 11/18/17 05:28 Globulin 2.1 g/dL (2.4-3.5) L 11/18/17 05:28 Nasal Screen MRSA (PCR) Positive (Negative) A 11/16/17 09:50 - Clinical Findings Intake & Output: Intake & Output 11/19/17 11/19/17 11/19/17 07:59 15:59 23:59 Intake Total 144 / 144 493 / 493 Output Total 807 / 807 187 / 187 230 / 230 Balance -663 / -663 306 / 306 -230 / -230 Weight 84.3 kg - VTE Documentation of Mechanical Device: Intermittent pneumatic compression device Consult Discharge Plan - Plan Referrals: Nga Blackwell MD [Partnered Physician] - 12/13/17 1:00 pm Eleazar Kee CNP [Primary Care Provider] - 12/06/17 9:30 am
[2017-11-20] MEDS: *HR* Morphine 2 MG/ML SYRINGE IVP PRN ×3 (03:17→22:53)
[2017-11-20 03:36] LABS: Basophils % 0.1 %; Hematocrit 24.7 % (37.5-50.1); Immature Granulocytes % 1.8 % (0-4); Immature Platelets 3.7 % (1.1-6.1); Lymphocytes # 0.9 K/mcL (0.6-4.6); Lymphocytes % 6.5 %; Mean Corpuscular HGB Conc 32.4 g/dL (31.6-35.5); Mean Corpuscular Hemoglobin 28.5 pg (28.0-33.3); Mean Corpuscular Volume 87.9 fL (83.0-100.0); Mean Platelet Volume 10.2 fL (9.4-12.4); Monocytes # 1.5 K/mcL (0.0-1.3); Monocytes % 10.6 %; Neutrophils # 11.5 K/mcL (1.6-8.9); Nucleated Red Blood Cells 0.1 /100 WBC (0); Platelet Count 195 K/mcL (140-400); Red Blood Count 2.81 M/mcL (4.19-5.50); Red Cell Distribution Width 16.4 % (11.5-14.5)
[2017-11-20 03:48] LABS: BUN/Creatinine Ratio 37 (6-26); Blood Urea Nitrogen 28 mg/dL (8-23); Calcium 8.4 mg/dL (8.6-10.3); Carbon Dioxide 30 mEq/L (23-29); Chloride 104 mEq/L (98-107); Glucose 156 mg/dL (70-105); Osmolality,Calculated 293 (280-300); Potassium 4.2 mEq/L (3.5-5.1); Sodium 137 mEq/L (136-145); eGFR For African Americans > 60 (> 60); eGFR For Non-African Americans > 60 (> 60)
[2017-11-20] MEDS: *HR* HYDROcodone/Acet 10/325 mg TABLET PO PRN ×2 (04:47→20:33)
[2017-11-20] MEDS: Ipratropium/Albuterol Neb 3 ML IH SCH ×5 (05:04→20:00)
--- NOTE | 2017-11-20 06:57 | Pulmonology Progress Note ---
<Usman Desir - Last Filed: 11/20/17 13:42> Date of Encounter: 11/20/17 Time of Encounter: 06:57 Assessment and Plan (1) Acute and chronic respiratory failure with hypoxia Current Visit: Yes Status: Acute Resolved likely 2/2 to angiodema and underlying CHF and COPD Patient off mechanical ventilation Patient on 5L NC (2) Hemothorax on right Current Visit: Yes Status: Resolved Patient had hemothorax which was successfully drained by cardio throacic surgery pneumothorax resolved Hemothroax redeveloped and was yet again successfully drained. Plan: continue chest tube in place continue management per cardio thoracic surgery patient stable for transfer to (3) DVT (deep venous thrombosis) Current Visit: Yes Status: Chronic Pt diagnosed with B/l DVTs 10/24/17 in b/l gastroc veins repeat dopplers showed L DVT had resolved and R persisted Patient had been on elequis but was held during a prior hospitalization prior to discovery of DVTs Patient unable to be fully anticoagulated 2/2 hemthorax. Pt had IVC filter placed Patient developed swelling of LUE. Found to have multiple DVTs in LUE. Plan: pt with IVC filter continue SCDs Vascular surgery has been consultued Appreciate any recommendations. Qualifiers: DVT location: lower extremity Affected thrombotic vein of extremity: unspecified vein of extremity Chronicity: chronic Laterality: left Qualified Code(s): I82.502 - Chronic embolism and thrombosis of unspecified deep veins of left lower extremity (4) Atrial fibrillation Current Visit: Yes Status: Chronic Hx of a fib on elequis currently in a fib rate control with lopressor and amlodipine. Plan: Continue to hold elequis continue amlodipine, and lopressor Qualifiers: Atrial fibrillation type: chronic Qualified Code(s): I48.2 - Chronic atrial fibrillation (5) Anemia Current Visit: Yes Status: Chronic Acute blood loss anemia 2/2 hemothorax hgb 8.0 today up from yesterday Patient transfused 4 units PRBC Plan: continue to monitor h/h replete as needed Qualifiers: Anemia type: other cause Other causes of anemia: acute posthemorrhagic Qualified Code(s): D62 - Acute posthemorrhagic anemia (6) COPD (chronic obstructive pulmonary disease) Current Visit: Yes Status: Chronic Hx of COPD not currently in acute exacerbation Plan: continue albuterol and symbicort Qualifiers: COPD type: COPD with acute exacerbation Qualified Code(s): J44.1 - Chronic obstructive pulmonary disease with (acute) exacerbation (7) CAD (coronary artery disease) Current Visit: Yes Status: Chronic Pt has chronically elevated troponin trop flat stable and adynamic Plan: continue tele monitoring continue home meds Qualifiers: Coronary Disease-Associated Artery/Lesion type: marshall artery [place] vs. transplanted heart: marshall heart Associated angina: without angina Qualified Code(s): I25.10 - Atherosclerotic heart disease of marshall coronary artery without angina pectoris (8) Chronic systolic CHF (congestive heart failure) Current Visit: No Status: Chronic Hx of Systollic CHF restarted home lasix at only dialy instead of BID. Plan: continue Lasix Subjective Principal diagnosis: Hemothorax Interval history: Patient Extubated successfully yesterday. Pating sating well on Nasal Canula. Patient has had swelling in his LUE for the past few days. Preliminary doppler shows multiple DVTs. Vacular consulted. Objective PUL Vital signs: Last Vital Signs Temp 97.5 F L 11/20/17 03:38 Pulse 70 11/20/17 06:00 Resp 16 11/20/17 06:00 BP 165/92 11/20/17 06:00 Pulse Ox 98 11/20/17 06:00 General appearance: no acute distress Eyes: nonicteric ENT: oropharynx moist Neck: supple Effort: normal Auscultation: right: diminished breath sounds, bilateral: clear Cardiovascular: irregular rhythm Gastrointestinal: normoactive bowel sounds, soft, non-tender, non-distended Integumentary: normal Extremities: no cyanosis, other (LUE swollen) normal mental status, non-focal exam mood appropriate, affect normal Results - Laboratory Findings CBC and BMP: 11/20/17 03:30 11/20/17 03:30 ABG ABG pH 7.35 pH Units (7.32-7.45) 11/18/17 02:49 ABG pCO2 57 mmHg (35-45) H 11/18/17 02:49 ABG pO2 72 mmHg (85-104) L 11/18/17 02:49 ABG O2 Saturation 93 % (95-98) L 11/18/17 02:49 PT/INR, D-dimer PT 12.6 Seconds (9.4-12.1) H 11/17/17 21:47 Abnormal lab findings: Abnormal lab results WBC 14.2 K/mcL (4.3-11.1) H 11/20/17 03:30 RBC 2.81 M/mcL (4.19-5.50) L 11/20/17 03:30 Hgb 8.0 g/dL (12.9-16.9) L 11/20/17 03:30 Hct 24.7 % (37.5-50.1) L 11/20/17 03:30 RDW 16.4 % (11.5-14.5) H 11/20/17 03:30 Neutrophils # 11.5 K/mcL (1.6-8.9) H 11/20/17 03:30 Monocytes # 1.5 K/mcL (0.0-1.3) H 11/20/17 03:30 Nucleated RBCs/100 WBC 0.1 /100 WBC (0) H 11/20/17 03:30 PT 12.6 Seconds (9.4-12.1) H 11/17/17 21:47 APTT 24.9 Seconds (26.0-36.0) L 11/17/17 21:47 ABG pCO2 57 mmHg (35-45) H 11/18/17 02:49 ABG pO2 72 mmHg (85-104) L 11/18/17 02:49 ABG HCO3 31 mEq/L (21-27) H 11/18/17 02:49 ABG Total CO2 33 mEq/L (20-26) H 11/18/17 02:49 ABG O2 Saturation 93 % (95-98) L 11/18/17 02:49 ABG Base Excess 5 mEq/L (-2 to 3) H 11/18/17 02:49 VBG pCO2 54 mmHg (41-51) H 11/14/17 07:43 VBG pO2 53 mmHg (25-50) H 11/14/17 07:43 VBG HCO3 31 mEq/L (21-27) H 11/14/17 07:43 Carbon Dioxide 30 mEq/L (23-29) H 11/20/17 03:30 BUN 28 mg/dL (8-23) H 11/20/17 03:30 BUN/Creatinine Ratio 37 (6-26) H 11/20/17 03:30 Glucose 156 mg/dL (70-105) H 11/20/17 03:30 POC Glucose 150 (58-89) H 11/18/17 23:48 Lactic Acid < 0.2 mmol/L (0.5-2.2) L 11/11/17 08:51 Calcium 8.4 mg/dL (8.6-10.3) L 11/20/17 03:30 Troponin I 0.05 ng/mL (< 0.04) H* 11/11/17 02:12 Serum Total Protein 4.6 g/dL (6.4-8.9) L 11/18/17 05:28 Albumin 2.5 g/dL (3.5-5.7) L 11/18/17 05:28 Globulin 2.1 g/dL (2.4-3.5) L 11/18/17 05:28 Nasal Screen MRSA (PCR) Positive (Negative) A 11/16/17 09:50 - Clinical Findings Intake & Output: Intake & Output 11/19/17 11/19/17 11/20/17 15:59 23:59 07:59 Intake Total 655.5 / 655.5 Output Total 187 / 187 727 / 727 215 / 215 Balance 468.5 / 468.5 -727 / -727 -215 / -215 Weight 82.4 kg - VTE Documentation of Mechanical Device: Intermittent pneumatic compression device Consult Discharge Plan - Plan Referrals: Nga Blackwell MD [Partnered Physician] - 12/13/17 1:00 pm Eleazar Kee CNP [Primary Care Provider] - 12/06/17 9:30 am <Gabo Li - Last Filed: 11/20/17 20:44> Date of Encounter: 11/20/17 Assessment and Plan (1) Acute and chronic respiratory failure with hypoxia Current Visit: Yes Status: Acute (2) COPD exacerbation Current Visit: No Status: Acute (3) Hemothorax Current Visit: Yes Status: Acute (4) Atrial fibrillation Current Visit: Yes Status: Chronic Qualifiers: Atrial fibrillation type: chronic Qualified Code(s): I48.2 - Chronic atrial fibrillation Objective PUL Vital signs: Last Vital Signs Temp 99.3 F 11/20/17 16:04 Pulse 75 11/20/17 15:59 Resp 18 11/20/17 16:33 BP 113/84 11/20/17 16:04 Pulse Ox 95 11/20/17 16:33 Results - Laboratory Findings CBC and BMP: 11/20/17 03:30 11/20/17 03:30 ABG ABG pH 7.35 pH Units (7.32-7.45) 11/18/17 02:49 ABG pCO2 57 mmHg (35-45) H 11/18/17 02:49 ABG pO2 72 mmHg (85-104) L 11/18/17 02:49 ABG O2 Saturation 93 % (95-98) L 11/18/17 02:49 PT/INR, D-dimer PT 12.6 Seconds (9.4-12.1) H 11/17/17 21:47 Abnormal lab findings: Abnormal lab results WBC 14.2 K/mcL (4.3-11.1) H 11/20/17 03:30 RBC 2.81 M/mcL (4.19-5.50) L 11/20/17 03:30 Hgb 8.0 g/dL (12.9-16.9) L 11/20/17 03:30 Hct 24.7 % (37.5-50.1) L 11/20/17 03:30 RDW 16.4 % (11.5-14.5) H 11/20/17 03:30 Neutrophils # 11.5 K/mcL (1.6-8.9) H 11/20/17 03:30 Monocytes # 1.5 K/mcL (0.0-1.3) H 11/20/17 03:30 Nucleated RBCs/100 WBC 0.1 /100 WBC (0) H 11/20/17 03:30 PT 12.6 Seconds (9.4-12.1) H 11/17/17 21:47 APTT 24.9 Seconds (26.0-36.0) L 11/17/17 21:47 ABG pCO2 57 mmHg (35-45) H 11/18/17 02:49 ABG pO2 72 mmHg (85-104) L 11/18/17 02:49 ABG HCO3 31 mEq/L (21-27) H 11/18/17 02:49 ABG Total CO2 33 mEq/L (20-26) H 11/18/17 02:49 ABG O2 Saturation 93 % (95-98) L 11/18/17 02:49 ABG Base Excess 5 mEq/L (-2 to 3) H 11/18/17 02:49 VBG pCO2 54 mmHg (41-51) H 11/14/17 07:43 VBG pO2 53 mmHg (25-50) H 11/14/17 07:43 VBG HCO3 31 mEq/L (21-27) H 11/14/17 07:43 Carbon Dioxide 30 mEq/L (23-29) H 11/20/17 03:30 BUN 28 mg/dL (8-23) H 11/20/17 03:30 BUN/Creatinine Ratio 37 (6-26) H 11/20/17 03:30 Glucose 156 mg/dL (70-105) H 11/20/17 03:30 POC Glucose 150 (58-89) H 11/18/17 23:48 Lactic Acid < 0.2 mmol/L (0.5-2.2) L 11/11/17 08:51 Calcium 8.4 mg/dL (8.6-10.3) L 11/20/17 03:30 Troponin I 0.05 ng/mL (< 0.04) H* 11/11/17 02:12 Serum Total Protein 4.6 g/dL (6.4-8.9) L 11/18/17 05:28 Albumin 2.5 g/dL (3.5-5.7) L 11/18/17 05:28 Globulin 2.1 g/dL (2.4-3.5) L 11/18/17 05:28 Nasal Screen MRSA (PCR) Positive (Negative) A 11/16/17 09:50 - Clinical Findings Intake & Output: Intake & Output 11/20/17 11/20/17 11/20/17 07:59 15:59 23:59 Intake Total 600 / 600 Output Total 365 / 365 205 / 205 Balance -365 / -365 395 / 395 Weight 82.4 kg - Attending Attestation I saw the patient with the resident agree with History and Physical exam findings. Labs and Radiology were reviewed NET TRAINER: Patient is conscious oriented x3 following commands NECK : No JVD appreciated Pulmonary : Patient acute on chronic hypoxic respiratory failure secondary to resolving hemothorax , COPD exacerbation and fluid overload Cardiac : To continue diuresis , patient had Left subclavian vein thrombosis consulted vascular service for any other intervention , patient is a high bleeding risk if he is put on anticoagulation Nutrition/GI: Patient is on regular diet Renal : Labs reviewed Heme onc : Hb is stable ID : No acute issues Musculo skeletal / skin issues : No acute issues Disposition : Will shift to Step down Code status: Full Code Family/POA:
[2017-11-20] MEDS: Budesonide/Formoterol 80/4.5 MDI IH SCH ×2 (08:14→20:15)
[2017-11-20] MEDS: *HR* Amiodarone 200 MG TABLET PO SCH (08:19)
[2017-11-20] MEDS: predniSONE 20 MG TABLET PO SCH (08:19)
[2017-11-20] MEDS: Furosemide 40 MG TABLET PO SCH (08:19)
[2017-11-20] MEDS: Nystatin Cream 15 GM TUBE TP SCH ×2 (08:22→22:54)
[2017-11-20] MEDS: Fluticasone Propionate Nasal 50 MCG/SPRAY BOTTLE NS SCH (08:23)
--- NOTE | 2017-11-20 09:20 | Cardiothoracic Progress Note ---
Date of Encounter: 11/20/17 Time of Encounter: : - Assessment and plan (1) Dyspnea Current Visit: No Status: Acute The assessment and plan as outlined above was discussed with the patient and/or family members who expressed understanding and agreement. All questions were answered. I would take the PICC line out of the left arm. He is okay for a peripheral IV from my standpoint. His Calderon catheter will be discontinued. Qualifiers: Dyspnea type: unspecified Qualified Code(s): R06.00 - Dyspnea, unspecified - Subjective Interval history: The patient complains of a swollen left arm. This is the arm with the PICC line. Vital Signs, Last 4 Hours Temp Pulse Resp BP Pulse Ox 11/20/17 08:14 16 96 11/20/17 07:51 98.2 F 11/20/17 06:00 70 16 165/92 98 Oxgyen Flow Rate Oxygen Flow Rate (LPM) 7 Clinical Data, last 8 Hours Output, Chest Tube Drainage 10 Amount [RC2] Output, Chest Tube Drainage 10 Amount [RC2] Output, Chest Tube Drainage 10 Amount [RC1] Output, Chest Tube Drainage 10 Amount [RC1] Weight 11/18/17 11/19/17 11/20/17 23:59 23:59 23:59 Weight 83.9 kg 84.3 kg 82.4 kg Lungs are clear to percussion and auscultation. Heart is in a regular rate and rhythm. Chest tube drainage is minimal and there is no air leak. The left arm is swollen, but has a good pulse. - Labs 11/20/17 03:30 11/20/17 03:30 Lab Results, Last 24 hours 11/20/17 11/20/17 03:30 03:30 WBC 14.2 H Hgb 8.0 L Hct 24.7 L Plt Count 195 Sodium 137 Potassium 4.2 Chloride 104 Carbon Dioxide 30 H BUN 28 H Creatinine 0.76 Glucose 156 H Calcium 8.4 L - VTE Documentation of Mechanical Device: Intermittent pneumatic compression device Consult Discharge Plan - Plan Referrals: Nga Blackwell MD [Partnered Physician] - 12/13/17 1:00 pm Eleazar Kee CNP [Primary Care Provider] - 12/06/17 9:30 am
[2017-11-20] MEDS ORDERED: Naloxone 0.4 MG/ML INJ IVP PRN ×3 (10:48→20:09)
[2017-11-20] MEDS ORDERED: Acetaminophen 325 MG TABLET PO PRN ×3 (10:48→20:09)
[2017-11-20] MEDS ORDERED: *HR* HYDROcodone/Acet 10/325 mg TABLET PO PRN ×2 (10:48→11:15)
[2017-11-20] MEDS ORDERED: *HR* Morphine 2 MG/ML SYRINGE IVP PRN ×4 (10:48→11:15)
[2017-11-20] MEDS ORDERED: Nitroglycerin 0.4 MG TAB.SUBL SL PRN ×3 (10:48→20:09)
[2017-11-20] MEDS ORDERED: Temazepam 15 MG CAPSULE PO PRN ×2 (10:48→11:15)
[2017-11-20] MEDS ORDERED: Lactulose Oral Soln 20 GM/30 ML UDC PO PRN ×2 (10:48→11:15)
[2017-11-20] MEDS ORDERED: *HR* OxyCODONE/APAP 5/325 TABLET PO PRN ×3 (10:48→20:09)
[2017-11-20] MEDS ORDERED: Sennosides/Docusate Sodium TABLET PO SCH ×2 (11:00→21:00)
[2017-11-20] MEDS ORDERED: Ipratropium/Albuterol Neb 3 ML IH SCH (12:00)
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
[2017-11-20] MEDS: Sennosides/Docusate Sodium TABLET PO SCH (20:34)
[2017-11-20] MEDS ORDERED: Nystatin Cream 15 GM TUBE TP SCH ×2 (21:00)
[2017-11-20] MEDS ORDERED: Budesonide/Formoterol 80/4.5 MDI IH SCH ×2 (22:00)
[2017-11-20] MEDS: Temazepam 15 MG CAPSULE PO PRN (22:54)
[2017-11-21] MEDS: Ipratropium/Albuterol Neb 3 ML IH SCH ×6 (00:03→20:53)
[2017-11-21] MEDS: *HR* Morphine 2 MG/ML SYRINGE IVP PRN ×6 (04:35→21:23)
[2017-11-21] MEDS: *HR* HYDROcodone/Acet 10/325 mg TABLET PO PRN ×3 (05:10→16:57)
[2017-11-21 05:31] LABS: Basophils % 0.1 %; Eosinophils % 0.1 %; Hematocrit 25.5 % (37.5-50.1); Immature Granulocytes % 1.3 % (0-4); Lymphocytes # 1.8 K/mcL (0.6-4.6); Mean Corpuscular HGB Conc 31.4 g/dL (31.6-35.5); Mean Corpuscular Volume 89.2 fL (83.0-100.0); Mean Platelet Volume 9.8 fL (9.4-12.4); Monocytes # 1.9 K/mcL (0.0-1.3); Monocytes % 10.5 %; Neutrophils # 14.2 K/mcL (1.6-8.9); Nucleated Red Blood Cells 0.1 /100 WBC (0); Platelet Count 207 K/mcL (140-400); Red Blood Count 2.86 M/mcL (4.19-5.50); Red Cell Distribution Width 16.4 % (11.5-14.5)
[2017-11-21 05:58] LABS: BUN/Creatinine Ratio 34 (6-26); Blood Urea Nitrogen 26 mg/dL (8-23); Calcium 8.4 mg/dL (8.6-10.3); Carbon Dioxide 34 mEq/L (23-29); Chloride 104 mEq/L (98-107); Glucose 88 mg/dL (70-105); Osmolality,Calculated 292 (280-300); Potassium 4.2 mEq/L (3.5-5.1); Sodium 139 mEq/L (136-145); eGFR For African Americans > 60 (> 60); eGFR For Non-African Americans > 60 (> 60)
[2017-11-21] MEDS: Fluticasone Propionate Nasal 50 MCG/SPRAY BOTTLE NS SCH (07:50)
[2017-11-21] MEDS: Nystatin Cream 15 GM TUBE TP SCH ×2 (07:51→21:08)
[2017-11-21] MEDS: Sennosides/Docusate Sodium TABLET PO SCH ×2 (07:51→21:07)
[2017-11-21] MEDS: *HR* Amiodarone 200 MG TABLET PO SCH (07:51)
--- NOTE | 2017-11-21 08:22 | Vascular/Endovas Progress Note ---
Date of Encounter: 11/21/17 Time of Encounter: 08:20 - Assessment and plan (1) Deep venous thrombosis of left upper extremity Current Visit: Yes Status: Acute Patient has left upper extremity DVT most likely due to PICC line. I recommended that the patient be started on a intravenous heparin drip without bolus. The potential risks and benefits as well as complications and alternatives of this therapy were reviewed with the patient. He was made aware of potential for recurrent hemothorax. He was also made aware of the potential for pulmonary embolism from untreated DVT. The patient understands these issues and wishes to proceed with anticoagulation therapy. I will make the recommendations and communicate this to the primary service. In addition his left upper extremity needs to be elevated to increase venous return. Patient has left upper extremity DVT. Patient needs IV heparin started this morning. Qualifiers: Affected thrombotic vein of extremity: axillary Chronicity: acute Qualified Code(s): I82.A12 - Acute embolism and thrombosis of left axillary vein (2) Hemothorax Current Visit: Yes Status: Acute Patient's hemothorax is treated with right thoracotomies and draining right chest tubes 2. (3) Atrial fibrillation Current Visit: Yes Status: Chronic Patient is under medical treatment for atrial fibrillation. He will eventually need to be restarted on his oral anticoagulants. Qualifiers: Atrial fibrillation type: chronic Qualified Code(s): I48.2 - Chronic atrial fibrillation - Subjective Interval history: Patient has no new complaints overnight. Patient had an uneventful evening. Vital Signs, Last 4 Hours Temp Pulse Resp BP Pulse Ox 11/21/17 07:25 98.9 F 66 18 151/78 91 11/21/17 04:48 97.9 F 66 18 153/85 96 11/21/17 04:30 97.9 F 66 18 153/85 96 - Physical Examination General: Present: Conversant, No Apparent Distress HEENT: Present: Atraumatic Vascular: Present: Pulse, normal, Edema (Left upper extremity swelling is mildly decreased. Patient has the left upper extremity appropriately elevated on 3 pillows and the anterior plane.) - VTE Documentation of Mechanical Device: Intermittent pneumatic compression device Results 11/21/17 05:00 11/21/17 05:00 Lab Results, Last 24 hours 11/21/17 11/21/17 05:00 05:00 WBC 18.2 H Hgb 8.0 L Hct 25.5 L Plt Count 207 Sodium 139 Potassium 4.2 Chloride 104 Carbon Dioxide 34 H BUN 26 H Creatinine 0.77 Glucose 88 Calcium 8.4 L Consult Discharge Plan - Plan Referrals: Nga Blackwell MD [Partnered Physician] - 12/13/17 1:00 pm Eleazar Kee CNP [Primary Care Provider] - 12/06/17 9:30 am
[2017-11-21] MEDS: Budesonide/Formoterol 80/4.5 MDI IH SCH ×2 (08:56→20:53)
[2017-11-21] MEDS ORDERED: *HR* Amiodarone 200 MG TABLET PO SCH ×2 (09:00)
[2017-11-21] MEDS ORDERED: Furosemide 40 MG TABLET PO SCH ×3 (09:00)
[2017-11-21] MEDS ORDERED: Fluticasone Propionate Nasal 50 MCG/SPRAY BOTTLE NS SCH ×2 (09:00)
[2017-11-21] MEDS ORDERED: Heparin 25,000 UNIT/500 ML D5W 25,000 UNIT/500 ML BAG IVC SCH (09:45)
--- NOTE | 2017-11-21 09:56 | Internal Med Progress Note ---
<Jess Shrestha - Last Filed: 11/21/17 14:04> Date of Encounter: 11/21/17 Time of Encounter: 09:00 - Assessment and plan (1) Acute and chronic respiratory failure with hypoxia Current Visit: Yes Status: Acute Assessment and plan: - Initial ABG on 11/11/17 with pH 7.37, pCO2 50, pO2 70 and HCO3 29. - Likely multifactorial including right hemothorax in the setting of COPD and history of right spontaneous pneumothorax. - Improves as patient maintains acceptable oxygenation on 5L NC. - Continue chest tube draining and hemothorax management per cardiothoracic surgery. - Continue Symbicort, scheduled bronchodilators and supplemental oxygen for COPD. - Patient is encouraged to use incentive spirometry. - Continue Flonase for nasal congestion which per patient may contribute to his shortness of breath. - Patient can use non-invasive ventilation as needed. - Continue to monitor closely. (2) DVT (deep venous thrombosis) Current Visit: Yes Status: Chronic Assessment and plan: - Bilateral lower extremity venous duplex on 10/24/17 found acute DVTs in bilateral gastroc veins and L ant tibial vein. - Patient was on Eliquis prior to admission. Anticoagulation had been held since given his hemothorax. - Status post IVC filer placement on 11/11/17. - Left upper extremity venous US on 11/20/17 found acute thrombosis and absent flow in left subclavian, brachial, and ulnar veins. The left axillary and basilic vein also demonstrate thrombosis with flow maintained. - With agreement from patient, cardiothoracic surgery and vascular surgery, will start on low dose heparin drip. - Continue to monitor. Qualifiers: DVT location: lower extremity Affected thrombotic vein of extremity: unspecified vein of extremity Chronicity: chronic Laterality: left Qualified Code(s): I82.502 - Chronic embolism and thrombosis of unspecified deep veins of left lower extremity (3) Hemothorax on right Current Visit: Yes Status: Resolved Assessment and plan: - CT chest on 11/10/17 found right hydropneumothorax with chest tube remaining in place and significant increase in volume of complex pleural fluid in the right chest, evidence of hemothorax. - Status post right posterior lateral thoracotomy with evacuation of hematoma on 11/11/17. - Intraoperative findings of a large amount of loculated, organized hematoma along the diaphragm, right lateral chest wall, and right apex. A loculated serosanguineous fluid flexion was also identified above the diaphragm and removed. - Patient had recurrent right hemothorax on 11/17/17 from intercostal bleeding which may be related to patient's straining during bowel movement. - Status post right posterior lateral thoracotomy, evacuation of right hemothorax and ligation of bleeding intercostal artery on 11/18/17 - Still having drainage from the two chest tubes. - Management per cardiothoracic surgery. (4) Atrial fibrillation Current Visit: Yes Status: Chronic Assessment and plan: - Currently rate-controlled. Continue metoprolol and amiodarone. - Was on Eliquis at home but all anticoagulations have been held since admission due his hemothorax. - Patient had IVC filter placed on 11/11/17. - With agreement from patient, cardiothoracic surgery and vascular surgery, will start on low dose heparin drip. - Continue telemetry monitoring. Qualifiers: Atrial fibrillation type: chronic Qualified Code(s): I48.2 - Chronic atrial fibrillation (5) Anemia Current Visit: Yes Status: Chronic Assessment and plan: - Hgb as low as 6.9 on 11/17/17. - Secondary to right hemothorax. - Patient had received 8 units of pRBC transfusion during current hospitalization. - Stable as Hgb remains 8.0 today. - Continue to monitor closely. Consider more blood transfusion if Hgb < 7. Qualifiers: Anemia type: other cause Other causes of anemia: acute posthemorrhagic Qualified Code(s): D62 - Acute posthemorrhagic anemia (6) COPD (chronic obstructive pulmonary disease) Current Visit: Yes Status: Chronic Assessment and plan: - Continue Symbicort, scheduled bronchodilators and supplemental oxygen. Qualifiers: COPD type: COPD with acute exacerbation Qualified Code(s): J44.1 - Chronic obstructive pulmonary disease with (acute) exacerbation (7) CAD (coronary artery disease) Current Visit: Yes Status: Chronic Assessment and plan: - Status post CABG in August 2014. - Continue metoprolol, Lipitor and prn nitroglycerin. Qualifiers: Coronary Disease-Associated Artery/Lesion type: [place] artery [place] vs. transplanted heart: [place] heart Associated angina: without angina Qualified Code(s): I25.10 - Atherosclerotic heart disease of [place] coronary artery without angina pectoris (8) Spontaneous pneumothorax Current Visit: No Status: Acute Assessment and plan: - Status post right thoracotomy with apical bleb resection on 10/19/17. - Chest tubes in place. - Management per cardiothoracic surgery. (9) Angio-edema Current Visit: Yes Status: Resolved Assessment and plan: - Swelling of tongue, lips, and eyelids noted after thoracotomy on 11/11/17 in the PACU. Patient was reintubated for airway protection at that time. Flat pink blanchable rash in his groin and petichiae on his shins were also noted. - The cause is unclear. Patient received the following medications between admission and occurrence of Angioedema : Albumin, normal saline, Proventil, Symbicort, Precedex, Fentanyl, heparin, Solu-Medrol, Zosyn, Vancomycn, Versed, Zofran, rocuronium, morphine, Lacrilube, and anti-inhibitorcoagulaent complex. - Patient has been on lisinopril for almost a year with no known issue. No known allergies. - Zosyn and lisinopril have been discontinued since. - Resolved as patient's swelling and respiratory status improved. - Will avoid antibiotic and lisnopril at this time unless it's clinically indicated. Qualifiers: Encounter type: initial encounter Qualified Code(s): T78.3XXA - Angioneurotic edema, initial encounter - Subjective Interval history: Patient was seen and examined this morning. Patient still has some cough with white-yellow sputum but otherwise breathing okay. Patient still has some chest wall pain which he graded at 6/10. Patient denies fever, chills, nausea, vomiting, diarrhea. - Constitutional Vitals: Temp Pulse Resp BP Pulse Ox 98.9 F 57 18 151/78 91 11/21/17 07:25 11/21/17 08:00 11/21/17 07:25 11/21/17 07:25 11/21/17 07:25 General appearance: Present: cooperative, A&O X 3, answers questions appropriately - Head Head exam: Present: normal inspection - Eye Eye exam: Present: EOMI, conjuntiva pink, sclera anicteric - Neck Neck exam general surgery: Present: normal inspection, supple, trachea midline - Respiratory Respiratory exam: Present: decreased breath sounds (Right lung base). Absent: accessory muscle use - Cardiovascular Cardiovascular exam: Present: RRR, +S1, +S2 - GI/Abdominal GI/Abdominal exam: Present: normal bowel sounds, soft, no peritoneal signs. Absent: tenderness - Extremities Exam Extremities exam: Present: pedal edema ([id number] BLE edema), warm. Absent: cyanotic - Neurological Exam Neurological exam: Present: alert. Absent: facial droop, speech deficit - Skin Skin exam: Present: dry, warm Internal Medicine: Result - Labs CBC & Chem 7: 11/21/17 05:00 11/21/17 05:00 Labs: Short CBC 11/21/17 Range/Units 05:00 WBC 18.2 H (4.3-11.1) K/mcL Hgb 8.0 L (12.9-16.9) g/dL Hct 25.5 L (37.5-50.1) % Plt Count 207 (140-400) K/mcL Neutrophils # 14.2 H (1.6-8.9) K/mcL BMP 11/21/17 05:00 Sodium 139 Potassium 4.2 Chloride 104 Carbon Dioxide 34 H BUN 26 H Creatinine 0.77 Glucose 88 Calcium 8.4 L - ABG Interpretation ABG results: ABG ABG pH 7.35 pH Units (7.32-7.45) 11/18/17 02:49 ABG pCO2 57 mmHg (35-45) H 11/18/17 02:49 ABG pO2 72 mmHg (85-104) L 11/18/17 02:49 ABG O2 Saturation 93 % (95-98) L 11/18/17 02:49 PT/INR, D-dimer PT 12.6 Seconds (9.4-12.1) H 11/17/17 21:47 - Impressions Impressions Chest X-Ray 11/21/17 00:01 IMPRESSION: Stable appearance of two right-sided chest tubes. Bullous emphysematous changes within the upper lobes with a possible small right apical pneumothorax. D/ / 11/21/2017 07:46:02 Jordy Flowers MD / [facility] Interpreting Provider: Jordy Flowers MD - VTE Documentation of Mechanical Device: Intermittent pneumatic compression device Consult Discharge Plan - Plan Referrals: Nga Blackwell MD [Partnered Physician] - 12/13/17 1:00 pm Eleazar Kee, HEAD BAKER [Primary Care Provider] - 12/06/17 9:30 am <Kandy Alejandre - Last Filed: 11/21/17 15:57> Date of Encounter: 11/21/17 - Constitutional Vitals: Temp Pulse Resp BP Pulse Ox 98.4 F 66 20 122/81 95 11/21/17 15:15 11/21/17 15:15 11/21/17 15:15 11/21/17 15:15 11/21/17 15:15 Internal Medicine: Result - Labs CBC & Chem 7: 11/21/17 05:00 11/21/17 05:00 Labs: Short CBC 11/21/17 Range/Units 05:00 WBC 18.2 H (4.3-11.1) K/mcL Hgb 8.0 L (12.9-16.9) g/dL Hct 25.5 L (37.5-50.1) % Plt Count 207 (140-400) K/mcL Neutrophils # 14.2 H (1.6-8.9) K/mcL BMP 11/21/17 05:00 Sodium 139 Potassium 4.2 Chloride 104 Carbon Dioxide 34 H BUN 26 H Creatinine 0.77 Glucose 88 Calcium 8.4 L - ABG Interpretation ABG results: ABG ABG pH 7.35 pH Units (7.32-7.45) 11/18/17 02:49 ABG pCO2 57 mmHg (35-45) H 11/18/17 02:49 ABG pO2 72 mmHg (85-104) L 11/18/17 02:49 ABG O2 Saturation 93 % (95-98) L 11/18/17 02:49 PT/INR, D-dimer PT 12.4 Seconds (9.4-12.1) H 11/21/17 10:25 - Impressions Impressions Chest X-Ray 11/21/17 00:01 IMPRESSION: Stable appearance of two right-sided chest tubes. Bullous emphysematous changes within the upper lobes with a possible small right apical pneumothorax. D/ / 11/21/2017 07:46:02 [facility] / [facility] Interpreting Provider: Jordy Flowers MD - Attending Attestation I examined this patient and my medical decision-making was reviewed with the Resident Physician Dr. Shrestha. I agree with the documented findings, disposition and treatment plan as described except to the extent set forth below. Mr. Johnson is a 62 year old male patient with history of coronary artery disease, atrial fibrillation, bilateral deep vein thrombosis , COPD, hypertension, recent MRSA pneumonia and bacteremia admitted here this time for acute hypoic resp failure with hemo thorax. He did have thoracotomy on 11/11/17 , however he developed recurrent right hemothorax on 11/17/17 from intercostal bleeding which may be related to patient's straining during bowel movement. He did have Right posterior lateral thoracotomy, evacuation of right hemothorax and ligation of bleeding intercostal artery on 11/18/17. Still having drainage from the two chest tubes. He does c/o some SOB and SANDOVAL today.. Currently on 5 lit O2.. He did develop Left subclavian, brachial and ulnar vein thrombosis where he had PICC line placed in. Gen: A A, O X 3.. Mild Resp distress Chest: Diminished BS b/l basal, mild crackle son Rt basa region no wheezing Heart : S1 S2 + RRR No murmurs Ext: 2+ Pitting edema a/p 1. Acute hypoxic resp failure 2. Recurrent Rt hemo thorax s/p thoracotmoy x 2 3. s/p VDRF -Possible Angioedema 4. Volume overload - mostly due to deconditioning Improving slowly cont bronchodilators regarding steroid use, will defer to Pulm He does have crackles and significant b/l LE edema.. will start him on IV Lasix 5. Acute Left UE DVT Spoke to Vascular surgery will start at low dose Heparin gtt.. To keep PTT @ 50 for today If he tolerates will advanced to therapeutic Heparin No bolus given If he gets blood in in thoracotomy tubes - will hold Heparin
[2017-11-21 10:39] LABS: INR 1.1; Prothrombin Time 12.4 Seconds (9.4-12.1)
[2017-11-21 10:42] LABS: Activated Partial Thrombo Time 22.8 Seconds (26.0-36.0)
--- NOTE | 2017-11-21 11:29 | Cardiothoracic Progress Note ---
Date of Encounter: 11/21/17 Time of Encounter: 11:26 - Assessment and plan (1) Hemothorax on right Current Visit: Yes Status: Resolved The patient remained hemodynamically stable overnight. He is complaining of more labored respiratory effort this morning. I will ask the bindery operator to evaluate the patient and offer treatment recommendations. There has been no further bleeding from the intercostal vessels. The chest tubes should remain on suction. He also was found to have a left subclavian DVT and is currently on a heparin drip for anticoagulation. The assessment and plan as outlined above was discussed with the patient and/or family members who expressed understanding and agreement. All questions were answered. - Subjective Procedure(s) Performed: POD#10 S/P Right thoracotomy with evacuation of hematoma POD#3 S/P Second right thoracotomy with evacuation of hematoma Interval history: The patient remained hemodynamically stable overnight. He believes his respirations are more labored this morning. His chest tube output is minimal without air leak. Vital Signs, Last 4 Hours Pulse 11/21/17 08:00 57 Oxgyen Flow Rate Oxygen Flow Rate (LPM) 6 Clinical Data, last 8 Hours Output, Chest Tube Drainage 0 Amount [RC2] Output, Chest Tube Drainage 10 Amount [RC2] Output, Chest Tube Drainage 10 Amount [RC2] Output, Chest Tube Drainage 0 Amount [RC1] Output, Chest Tube Drainage 0 Amount [RC1] Output, Chest Tube Drainage 0 Amount [RC1] Output, Urine Amount 250 Weight 11/19/17 11/20/17 11/21/17 23:59 23:59 23:59 Weight 84.3 kg 82.4 kg 81.5 kg - Physical Examination General: Conversant, No Apparent Distress Neck: No JVD, Normal carotid pulses Cardiac: Normal S1 and S2, No Murmur, Other (Irregular rate and rhythm (atrial fibrillation)) Incision: No signs of infection, Dry/intact dressing Chest tubes: Minimal drainage, Other (No air leak) Lungs: Normal Breath Sounds, No Wheeze, Rales, Rhonchi Neuro: Alert and responsive, No focal deficits noted Vascular: Normal capillary refill Musculoskeletal: No Chest Wall Tenderness Extremities: No Clubbing, No Cyanosis, No Edema - Labs 11/21/17 05:00 11/21/17 05:00 Lab Results, Last 24 hours 11/21/17 11/21/17 11/21/17 05:00 05:00 10:25 WBC 18.2 H Hgb 8.0 L Hct 25.5 L Plt Count 207 INR 1.1 APTT 22.8 L Sodium 139 Potassium 4.2 Chloride 104 Carbon Dioxide 34 H BUN 26 H Creatinine 0.77 Glucose 88 Calcium 8.4 L - Imaging Chest Xray: image reviewed (Small right apical pneumothorax, unchanged.) - VTE Documentation of Mechanical Device: Intermittent pneumatic compression device Consult Discharge Plan - Plan Referrals: Nga Blackwell MD [Partnered Physician] - 12/13/17 1:00 pm Eleazar Kee CNP [Primary Care Provider] - 12/06/17 9:30 am
[2017-11-21] MEDS: Heparin 25,000 UNIT/500 ML D5W 25,000 UNIT/500 ML BAG IVC SCH (13:11)
[2017-11-21] MEDS: Furosemide 40 MG/4 ML VIAL IVP SCH (16:49)
--- NOTE | 2017-11-21 20:14 | Pulmonology Progress Note ---
Date of Encounter: 11/21/17 Time of Encounter: 14:00 Assessment and Plan (1) Acute and chronic respiratory failure with hypoxia Current Visit: Yes Status: Acute Patient has acute on chronic respiratory failure with hypoxia multifactorial , Right sided hemothorax which is resolving , COPD exacerbation , chronic diastolic heart failure to wean FIO2 to keep around SPO2 around 92% To continue incentive spirometry , encourage sitting so the right basilar atelectasis will get better . (2) COPD exacerbation Current Visit: No Status: Acute To continue bronchodilators and steroids (3) Hemothorax Current Visit: Yes Status: Acute S/p thoractomy and chest tube drainage managment according to . CXR look stable (4) Atrial fibrillation Current Visit: Yes Status: Chronic To continue amiodarone and lopressor Qualifiers: Atrial fibrillation type: chronic Qualified Code(s): I48.2 - Chronic atrial fibrillation Subjective Principal diagnosis: Hemothorax Interval history: Patient is waking up appropriately following commands , Pulmonary status stable. Bleeding getting stable. Objective PUL Vital signs: Last Vital Signs Temp 98.6 F 11/21/17 19:08 Pulse 65 11/21/17 19:08 Resp 17 11/21/17 19:08 BP 134/75 11/21/17 19:08 Pulse Ox 95 11/21/17 19:08 Results - Laboratory Findings CBC and BMP: 11/21/17 05:00 11/21/17 05:00 ABG ABG pH 7.35 pH Units (7.32-7.45) 11/18/17 02:49 ABG pCO2 57 mmHg (35-45) H 11/18/17 02:49 ABG pO2 72 mmHg (85-104) L 11/18/17 02:49 ABG O2 Saturation 93 % (95-98) L 11/18/17 02:49 PT/INR, D-dimer PT 12.4 Seconds (9.4-12.1) H 11/21/17 10:25 Abnormal lab findings: Abnormal lab results WBC 18.2 K/mcL (4.3-11.1) H 11/21/17 05:00 RBC 2.86 M/mcL (4.19-5.50) L 11/21/17 05:00 Hgb 8.0 g/dL (12.9-16.9) L 11/21/17 05:00 Hct 25.5 % (37.5-50.1) L 11/21/17 05:00 MCHC 31.4 g/dL (31.6-35.5) L 11/21/17 05:00 RDW 16.4 % (11.5-14.5) H 11/21/17 05:00 Neutrophils # 14.2 K/mcL (1.6-8.9) H 11/21/17 05:00 Monocytes # 1.9 K/mcL (0.0-1.3) H 11/21/17 05:00 Nucleated RBCs/100 WBC 0.1 /100 WBC (0) H 11/21/17 05:00 PT 12.4 Seconds (9.4-12.1) H 11/21/17 10:25 ABG pCO2 57 mmHg (35-45) H 11/18/17 02:49 ABG pO2 72 mmHg (85-104) L 11/18/17 02:49 ABG HCO3 31 mEq/L (21-27) H 11/18/17 02:49 ABG Total CO2 33 mEq/L (20-26) H 11/18/17 02:49 ABG O2 Saturation 93 % (95-98) L 11/18/17 02:49 ABG Base Excess 5 mEq/L (-2 to 3) H 11/18/17 02:49 VBG pCO2 54 mmHg (41-51) H 11/14/17 07:43 VBG pO2 53 mmHg (25-50) H 11/14/17 07:43 VBG HCO3 31 mEq/L (21-27) H 11/14/17 07:43 Carbon Dioxide 34 mEq/L (23-29) H 11/21/17 05:00 BUN 26 mg/dL (8-23) H 11/21/17 05:00 BUN/Creatinine Ratio 34 (6-26) H 11/21/17 05:00 POC Glucose 150 (58-89) H 11/18/17 23:48 Lactic Acid < 0.2 mmol/L (0.5-2.2) L 11/11/17 08:51 Calcium 8.4 mg/dL (8.6-10.3) L 11/21/17 05:00 Troponin I 0.05 ng/mL (< 0.04) H* 11/11/17 02:12 Serum Total Protein 4.6 g/dL (6.4-8.9) L 11/18/17 05:28 Albumin 2.5 g/dL (3.5-5.7) L 11/18/17 05:28 Globulin 2.1 g/dL (2.4-3.5) L 11/18/17 05:28 Nasal Screen MRSA (PCR) Positive (Negative) A 11/16/17 09:50 - Clinical Findings Intake & Output: Intake & Output 11/21/17 11/21/17 11/21/17 07:59 15:59 23:59 Intake Total 240 / 240 240 / 240 Output Total 270 / 270 1380 / 1380 380 / 380 Balance -30 / -30 -1140 / -1140 -380 / -380 Weight 81.5 kg - VTE Documentation of Mechanical Device: Intermittent pneumatic compression device Consult Discharge Plan - Plan Referrals: Nga Blackwell MD [Partnered Physician] - 12/13/17 1:00 pm Eleazar Kee CNP [Primary Care Provider] - 12/06/17 9:30 am
[2017-11-21] MEDS: Temazepam 15 MG CAPSULE PO PRN (23:00)
[2017-11-22] MEDS: Ipratropium/Albuterol Neb 3 ML IH SCH ×7 (00:19→23:54)
[2017-11-22 01:51] LABS: Basophils % 0.1 %; Eosinophils # 0.1 K/mcL (0.0-0.6); Eosinophils % 0.3 %; Hematocrit 25.5 % (37.5-50.1); Hemoglobin 8.2 g/dL (12.9-16.9); Immature Granulocytes % 1.1 % (0-4); Lymphocytes # 1.6 K/mcL (0.6-4.6); Lymphocytes % 7.5 %; Mean Corpuscular HGB Conc 32.2 g/dL (31.6-35.5); Mean Corpuscular Hemoglobin 28.8 pg (28.0-33.3); Mean Corpuscular Volume 89.5 fL (83.0-100.0); Mean Platelet Volume 9.9 fL (9.4-12.4); Monocytes # 1.9 K/mcL (0.0-1.3); Monocytes % 9.2 %; Nucleated Red Blood Cells 0.1 /100 WBC (0); Platelet Count 232 K/mcL (140-400); Red Blood Count 2.85 M/mcL (4.19-5.50); Red Cell Distribution Width 16.4 % (11.5-14.5); Segmented Neutrophils % 81.8 %
[2017-11-22 02:09] LABS: BUN/Creatinine Ratio 28 (6-26); Blood Urea Nitrogen 23 mg/dL (8-23); Calcium 8.5 mg/dL (8.6-10.3); Carbon Dioxide 31 mEq/L (23-29); Chloride 100 mEq/L (98-107); Glucose 129 mg/dL (70-105); Osmolality,Calculated 287 (280-300); Potassium 4.1 mEq/L (3.5-5.1); Sodium 136 mEq/L (136-145); eGFR For African Americans > 60 (> 60); eGFR For Non-African Americans > 60 (> 60)
[2017-11-22] MEDS: *HR* Morphine 2 MG/ML SYRINGE IVP PRN ×10 (02:28→22:29)
[2017-11-22] MEDS: Levofloxacin 750 MG/150 ML 750 MG/150 ML BAG IVPB SCH (04:00)
[2017-11-22] MEDS: Budesonide/Formoterol 80/4.5 MDI IH SCH ×2 (07:46→20:05)
--- NOTE | 2017-11-22 07:59 | Cardiothoracic Progress Note ---
Date of Encounter: 11/22/17 Time of Encounter: 07:58 - Assessment and plan (1) Hemothorax on right Current Visit: Yes Status: Resolved The patient remained hemodynamically stable overnight. He is complaining of more labored respiratory effort this morning.he also developed a low-grade temp and additional antibiotics will be added to cover for possible pneumonia/ infection. The assessment and plan as outlined above was discussed with the patient and/or family members who expressed understanding and agreement. All questions were answered. - Subjective Procedure(s) Performed: POD#11 S/P Right thoracotomy with evacuation of hematoma POD#4 S/P Second right thoracotomy with evacuation of hematoma Interval history: The patient remained hemodynamically stable overnight. He believes his respirations are more labored this morning. His chest tube output is minimal without air leak. Vital Signs, Last 4 Hours Temp Pulse Resp BP Pulse Ox 11/22/17 07:48 16 92 11/22/17 07:42 100 F H 83 18 143/77 95 11/22/17 04:14 18 97 11/22/17 04:12 98.4 F 76 16 143/69 95 Oxgyen Flow Rate Oxygen Flow Rate (LPM) 7 Clinical Data, last 8 Hours Output, Chest Tube Drainage 50 Amount [RC2] Output, Urine Amount 200 Weight 11/20/17 11/21/17 11/22/17 23:59 23:59 23:59 Weight 82.4 kg 81.5 kg - Physical Examination General: Conversant, No Apparent Distress Neck: No JVD, Normal carotid pulses Cardiac: Normal S1 and S2, No Murmur, Other (Irregular rate and rhythm (atrial fibrillation)) Incision: No signs of infection, Dry/intact dressing Chest tubes: Minimal drainage, Other (No air leak) Lungs: Decreased breath sounds, No Wheeze, Rales, Rhonchi Neuro: Alert and responsive, No focal deficits noted Vascular: Normal capillary refill Extremities: No Clubbing, No Cyanosis, No Edema - Labs 11/22/17 01:40 11/22/17 01:40 Lab Results, Last 24 hours 11/21/17 11/21/17 11/22/17 10:25 18:16 01:40 WBC 20.8 H Hgb 8.2 L Hct 25.5 L Plt Count 232 INR 1.1 APTT 22.8 L 30.3 Sodium Potassium Chloride Carbon Dioxide BUN Creatinine Glucose Calcium 11/22/17 11/22/17 01:40 03:50 WBC Hgb Hct Plt Count INR APTT 34.0 Sodium 136 Potassium 4.1 Chloride 100 Carbon Dioxide 31 H BUN 23 Creatinine 0.81 Glucose 129 H Calcium 8.5 L - Imaging Chest Xray: image reviewed (No pneumothorax. Slight improvement in right base aeration.) - VTE Documentation of Mechanical Device: Intermittent pneumatic compression device Consult Discharge Plan - Plan Referrals: Nga Blackwell MD [Partnered Physician] - 12/13/17 1:00 pm Eleazar Kee CNP [Primary Care Provider] - 12/06/17 9:30 am
[2017-11-22] MEDS ORDERED: Vancomycin 1,250 MG in D5% in Water 250 ML IVPB SCH (08:00)
[2017-11-22] MEDS: Lactulose Oral Soln 20 GM/30 ML UDC PO PRN (08:43)
[2017-11-22] MEDS: *HR* HYDROcodone/Acet 10/325 mg TABLET PO PRN ×4 (08:44→21:08)
[2017-11-22] MEDS: *HR* Amiodarone 200 MG TABLET PO SCH (08:44)
[2017-11-22] MEDS: Sennosides/Docusate Sodium TABLET PO SCH ×2 (08:45→21:08)
[2017-11-22] MEDS: Furosemide 40 MG/4 ML VIAL IVP SCH ×2 (08:45→16:39)
[2017-11-22] MEDS: Fluticasone Propionate Nasal 50 MCG/SPRAY BOTTLE NS SCH (08:57)
[2017-11-22] MEDS: Nystatin Cream 15 GM TUBE TP SCH ×2 (08:58→21:09)
[2017-11-22] MEDS: Piperacillin/Tazobactam 3.375 GM/200 ML BAG IVPB SCH ×2 (09:04→16:45)
--- NOTE | 2017-11-22 09:05 | Internal Med Progress Note ---
<Jess Shrestha - Last Filed: 11/22/17 13:21> Date of Encounter: 11/22/17 Time of Encounter: 08:30 - Assessment and plan (1) Acute and chronic respiratory failure with hypoxia Current Visit: Yes Status: Acute Assessment and plan: - Initial ABG on 11/11/17 with pH 7.37, pCO2 50, pO2 70 and HCO3 29. - Likely multifactorial including right hemothorax in the setting of COPD and history of right spontaneous pneumothorax. - Improves as patient maintains acceptable oxygenation on 5L NC. - Antibiotics for suspected pneumonia. - Continue chest tube draining and hemothorax management per cardiothoracic surgery. - Continue steroid, Symbicort, scheduled bronchodilators and supplemental oxygen for COPD. - Patient is encouraged to use incentive spirometry. - Continue Flonase for nasal congestion which per patient may contribute to his shortness of breath. - Patient can use non-invasive ventilation as needed. - Continue to monitor closely. (2) Pneumonia Current Visit: Yes Status: Suspected Assessment and plan: - Patient had fever 100.6 overnight and worsening leukocytosis (WBC 20.8) along with worsening shortness of breath and cough, concerning of pneumonia. - CXR today found no significant change compared to yesterday. - Will obtain sputum culture and more blood cultures. - Given patient's significant current pulmonary problem and history of MRSA, will continue levofloxacin and start vancomycin and Zosyn for broad-spectrum coverage. Further de-escalation based on clinical picture and culture results. - Patient's hemothorax increases his risk to develop empyema. Consider CT chest if patient's fever and/or respiratory distress persists. Qualifiers: Pneumonia type: due to unspecified organism Laterality: unspecified laterality Lung location: unspecified part of lung Qualified Code(s): J18.9 - Pneumonia, unspecified organism (3) DVT (deep venous thrombosis) Current Visit: Yes Status: Chronic Assessment and plan: - Bilateral lower extremity venous duplex on 10/24/17 found acute DVTs in bilateral gastroc veins and L ant tibial vein. - Patient was on Eliquis prior to admission. Anticoagulation had been held since given his hemothorax. - Status post IVC filer placement on 11/11/17. - Left upper extremity venous US on 11/20/17 found acute thrombosis and absent flow in left subclavian, brachial, and ulnar veins. The left axillary and basilic vein also demonstrate thrombosis with flow maintained. - With agreement from patient, cardiothoracic surgery and vascular surgery, currently on modified low dose heparin drip with close monitoring. The goal is to keep PTT around 50 today. Qualifiers: DVT location: lower extremity Affected thrombotic vein of extremity: unspecified vein of extremity Chronicity: chronic Laterality: left Qualified Code(s): I82.502 - Chronic embolism and thrombosis of unspecified deep veins of left lower extremity (4) Hemothorax on right Current Visit: Yes Status: Resolved Assessment and plan: - CT chest on 11/10/17 found right hydropneumothorax with chest tube remaining in place and significant increase in volume of complex pleural fluid in the right chest, evidence of hemothorax. - Status post right posterior lateral thoracotomy with evacuation of hematoma on 11/11/17. - Intraoperative findings of a large amount of loculated, organized hematoma along the diaphragm, right lateral chest wall, and right apex. A loculated serosanguineous fluid flexion was also identified above the diaphragm and removed. - Patient had recurrent right hemothorax on 11/17/17 from intercostal bleeding which may be related to patient's straining during bowel movement. - Status post right posterior lateral thoracotomy, evacuation of right hemothorax and ligation of bleeding intercostal artery on 11/18/17 - Still having drainage from the two chest tubes. - Management per cardiothoracic surgery. (5) Atrial fibrillation Current Visit: Yes Status: Chronic Assessment and plan: - Currently rate-controlled. Continue metoprolol and amiodarone. - Was on Eliquis at home but all anticoagulations have been held since admission due his hemothorax. - Patient had IVC filter placed on 11/11/17. - Currently on modified low dose heparin drip. - Continue telemetry monitoring. Qualifiers: Atrial fibrillation type: chronic Qualified Code(s): I48.2 - Chronic atrial fibrillation (6) Anemia Current Visit: Yes Status: Chronic Assessment and plan: - Hgb as low as 6.9 on 11/17/17. - Secondary to right hemothorax. - Patient had received 8 units of pRBC transfusion during current hospitalization. - Hgb stable at 8.2 today. - Continue to monitor. Consider more blood transfusion if Hgb < 7. Qualifiers: Anemia type: other cause Other causes of anemia: acute posthemorrhagic Qualified Code(s): D62 - Acute posthemorrhagic anemia (7) COPD (chronic obstructive pulmonary disease) Current Visit: Yes Status: Chronic Assessment and plan: - Continue Symbicort, scheduled bronchodilators and supplemental oxygen. - Start Solu-Medrol 40 mg IV BID given reported worsening dyspnea. Qualifiers: COPD type: COPD with acute exacerbation Qualified Code(s): J44.1 - Chronic obstructive pulmonary disease with (acute) exacerbation (8) CAD (coronary artery disease) Current Visit: Yes Status: Chronic Assessment and plan: - Status post CABG in August 2014. - Continue metoprolol, Lipitor and prn nitroglycerin. Qualifiers: Coronary Disease-Associated Artery/Lesion type: [place] artery [place] vs. transplanted heart: [place] heart Associated angina: without angina Qualified Code(s): I25.10 - Atherosclerotic heart disease of [place] coronary artery without angina pectoris (9) Spontaneous pneumothorax Current Visit: No Status: Acute Assessment and plan: - Status post right thoracotomy with apical bleb resection on 10/19/17. - Chest tubes in place. - Management per cardiothoracic surgery. (10) Angio-edema Current Visit: Yes Status: Resolved Assessment and plan: - Swelling of tongue, lips, and eyelids noted after thoracotomy on 11/11/17 in the PACU. Patient was reintubated for airway protection at that time. Flat pink blanchable rash in his groin and petichiae on his shins were also noted. - The cause is unclear. Patient received the following medications between admission and occurrence of Angioedema : Albumin, normal saline, Proventil, Symbicort, Precedex, Fentanyl, heparin, Solu-Medrol, Zosyn, Vancomycn, Versed, Zofran, rocuronium, morphine, Lacrilube, and anti-inhibitorcoagulaent complex. - Patient has been on lisinopril for almost a year with no known issue. No known allergies. - Zosyn and lisinopril have been discontinued since. - Resolved as patient's swelling and respiratory status improved. - Will avoid antibiotic and lisnopril at this time unless it's clinically indicated. Qualifiers: Encounter type: initial encounter Qualified Code(s): T78.3XXA - Angioneurotic edema, initial encounter - Subjective Interval history: Patient was noted to have fever 100.6 around midnight. Blood culture was collected and patient was started on IV levofloxacin by nighttime physician. Patient was seen and examined this morning. Patient reports worsening shortness of breath and cough. Patient still has some chest wall pain which he wants better pain control. Patient denies abdominal pain, nausea, vomiting, diarrhea. - Constitutional Vitals: Temp Pulse Resp BP Pulse Ox 100 F H 83 16 143/77 92 11/22/17 07:42 11/22/17 07:42 11/22/17 07:48 11/22/17 07:42 11/22/17 07:48 General appearance: Present: cooperative, A&O X 3, answers questions appropriately - Head Head exam: Present: normal inspection - Eye Eye exam: Present: EOMI, conjuntiva pink, sclera anicteric - Neck Neck exam general surgery: Present: normal inspection, supple, trachea midline - Respiratory Respiratory exam: Present: decreased breath sounds (Right lung base). Absent: accessory muscle use - Cardiovascular Cardiovascular exam: Present: RRR, +S1, +S2 - GI/Abdominal GI/Abdominal exam: Present: normal bowel sounds, soft, no peritoneal signs. Absent: tenderness - Extremities Exam Extremities exam: Present: pedal edema ([id number] BLE edema), warm. Absent: cyanotic - Neurological Exam Neurological exam: Present: alert. Absent: facial droop, speech deficit - Skin Skin exam: Present: dry, warm Internal Medicine: Result - Labs CBC & Chem 7: 11/22/17 01:40 11/22/17 01:40 Labs: Short CBC 11/22/17 Range/Units 01:40 WBC 20.8 H (4.3-11.1) K/mcL Hgb 8.2 L (12.9-16.9) g/dL Hct 25.5 L (37.5-50.1) % Plt Count 232 (140-400) K/mcL Neutrophils # 17.0 H (1.6-8.9) K/mcL BMP 11/22/17 01:40 Sodium 136 Potassium 4.1 Chloride 100 Carbon Dioxide 31 H BUN 23 Creatinine 0.81 Glucose 129 H Calcium 8.5 L - ABG Interpretation ABG results: ABG ABG pH 7.35 pH Units (7.32-7.45) 11/18/17 02:49 ABG pCO2 57 mmHg (35-45) H 11/18/17 02:49 ABG pO2 72 mmHg (85-104) L 11/18/17 02:49 ABG O2 Saturation 93 % (95-98) L 11/18/17 02:49 PT/INR, D-dimer PT 12.4 Seconds (9.4-12.1) H 11/21/17 10:25 - Impressions Impressions Chest X-Ray 11/22/17 06:00 IMPRESSION: Stable position of right chest tubes. Unchanged appearance of possible trace right apical pneumothorax. Mild right basilar atelectasis. D/ / Brandon Clark MD / Brandon Clark MD Interpreting Provider: Brandon Clark MD - VTE Documentation of Mechanical Device: Intermittent pneumatic compression device Consult Discharge Plan - Plan Referrals: Nga Blackwell MD [Partnered Physician] - 12/13/17 1:00 pm Eleazar Kee CNP [Primary Care Provider] - 12/06/17 9:30 am <Kandy Alejandre - Last Filed: 11/22/17 15:58> Date of Encounter: 11/22/17 - Constitutional Vitals: Temp Pulse Resp BP Pulse Ox 98.6 F 64 19 107/64 93 11/22/17 11:23 11/22/17 14:55 11/22/17 14:55 11/22/17 11:23 11/22/17 14:55 Internal Medicine: Result - Labs CBC & Chem 7: 11/22/17 01:40 11/22/17 01:40 Labs: Short CBC 11/22/17 Range/Units 01:40 WBC 20.8 H (4.3-11.1) K/mcL Hgb 8.2 L (12.9-16.9) g/dL Hct 25.5 L (37.5-50.1) % Plt Count 232 (140-400) K/mcL Neutrophils # 17.0 H (1.6-8.9) K/mcL BMP 11/22/17 01:40 Sodium 136 Potassium 4.1 Chloride 100 Carbon Dioxide 31 H BUN 23 Creatinine 0.81 Glucose 129 H Calcium 8.5 L - ABG Interpretation ABG results: ABG ABG pH 7.35 pH Units (7.32-7.45) 11/18/17 02:49 ABG pCO2 57 mmHg (35-45) H 11/18/17 02:49 ABG pO2 72 mmHg (85-104) L 11/18/17 02:49 ABG O2 Saturation 93 % (95-98) L 11/18/17 02:49 PT/INR, D-dimer PT 12.4 Seconds (9.4-12.1) H 11/21/17 10:25 - Impressions Impressions Chest X-Ray 11/22/17 06:00 IMPRESSION: Stable position of right chest tubes. Unchanged appearance of possible trace right apical pneumothorax. Mild right basilar atelectasis. D/ / Brandon Clark MD / Brandon Clark MD Interpreting Provider: Brandon Clark MD - Attending Attestation I examined this patient and my medical decision-making was reviewed with the Resident Physician Dr. Shrestha. I agree with the documented findings, disposition and treatment plan as described except to the extent set forth below. Mr. Johnson is a 62 year old male patient with history of coronary artery disease, atrial fibrillation, bilateral deep vein thrombosis , COPD, hypertension, recent MRSA pneumonia and bacteremia admitted here this time for acute hypoic resp failure with hemo thorax. He did have thoracotomy on 11/11/17 , however he developed recurrent right hemothorax on 11/17/17 from intercostal bleeding which may be related to patient's straining during bowel movement. He did have Right posterior lateral thoracotomy, evacuation of right hemothorax and ligation of bleeding intercostal artery on 11/18/17. He did develop Left subclavian, brachial and ulnar vein thrombosis where he had PICC line placed in. He does c/o some SOB and SANDOVAL today.. Currently on 5 lit O2..Also c/o Rt chest wall pain and taking too much pain medication. He did develope fever spikes last night Gen: A A, O X 3.. Mild Resp distress Chest: Diminished BS b/l basal, mild crackle son Rt basa region no wheezing Heart : S1 S2 + RRR No murmurs Ext: 2+ Pitting edema a/p 1. Sepsis with fever and Leukocytosis 2. Pneumonia - mostly bacterial 3. Recent h/o MRSA Bacteremia He does meet Sepsis criteria sent for blood cx broad spec abx - Vanco + Zosyn + Levaquin If he persistently develops fever and WBC stays elevated will get CT of chest I would recommend to keep chest tubes until his fever resolves.. will talk to Dr Blackwell 4. Acute hypoxic resp failure2. Recurrent Rt hemo thorax s/p thoracotmoy x 2 5. s/p VDRF -Possible Angioedema 6. Volume overload - mostly due to deconditioning cont bronchodilators started on low dose steroids He does have crackles and significant b/l LE edema.. cont him on IV Lasix 7. Acute Left UE DVT Since he tolerated heparin gtt well so far.. will give inc Heparin to standard dose 8. Chronic narcotic dependence 9. Chest wall pain adjusted pain meds
[2017-11-22] MEDS: Vancomycin 1,250 MG in D5% in Water 250 ML IVPB SCH ×2 (09:06→21:07)
[2017-11-22] MEDS: Heparin 25,000 UNIT/500 ML D5W 25,000 UNIT/500 ML BAG IVC SCH (10:22)
[2017-11-22] MEDS: MethylPREDNISolone 40 MG/ML VIAL IVP SCH ×2 (10:35→18:16)
[2017-11-22] MEDS: *HR* LORazepam 1 MG TABLET PO PRN ×2 (16:39→21:08)
[2017-11-23] MEDS: Piperacillin/Tazobactam 3.375 GM/200 ML BAG IVPB SCH ×3 (00:56→17:58)
[2017-11-23] MEDS: Levofloxacin 750 MG/150 ML 750 MG/150 ML BAG IVPB SCH (00:57)
[2017-11-23] MEDS: *HR* Morphine 2 MG/ML SYRINGE IVP PRN ×10 (01:00→22:56)
[2017-11-23] MEDS: *HR* HYDROcodone/Acet 10/325 mg TABLET PO PRN ×5 (02:42→20:11)
[2017-11-23] MEDS: Ipratropium/Albuterol Neb 3 ML IH SCH ×6 (04:16→23:17)
[2017-11-23 05:21] LABS: Hematocrit 23.9 % (37.5-50.1); Hemoglobin 7.6 g/dL (12.9-16.9); Mean Corpuscular HGB Conc 31.8 g/dL (31.6-35.5); Mean Corpuscular Hemoglobin 28.4 pg (28.0-33.3); Mean Corpuscular Volume 89.2 fL (83.0-100.0); Mean Platelet Volume 9.7 fL (9.4-12.4); Platelet Count 245 K/mcL (140-400); Red Blood Count 2.68 M/mcL (4.19-5.50)
[2017-11-23] MEDS: MethylPREDNISolone 40 MG/ML VIAL IVP SCH ×2 (05:21→10:35)
[2017-11-23 05:27] LABS: BUN/Creatinine Ratio 25 (6-26); Blood Urea Nitrogen 23 mg/dL (8-23); Calcium 8.3 mg/dL (8.6-10.3); Carbon Dioxide 32 mEq/L (23-29); Chloride 98 mEq/L (98-107); Glucose 120 mg/dL (70-105); Osmolality,Calculated 281 (280-300); Sodium 133 mEq/L (136-145); eGFR For African Americans > 60 (> 60); eGFR For Non-African Americans > 60 (> 60)
[2017-11-23 05:43] LABS: Lymphocytes # 1.1 K/mcL (0.6-4.6); Monocytes # 2.8 K/mcL (0.0-1.3); Neutrophils # 24.2 K/mcL (1.6-8.9); Platelet Estimate Normal (Normal)
[2017-11-23] MEDS: Heparin 25,000 UNIT/500 ML D5W 25,000 UNIT/500 ML BAG IVC SCH (06:32)
[2017-11-23] MEDS: Budesonide/Formoterol 80/4.5 MDI IH SCH ×2 (07:35→20:36)
--- NOTE | 2017-11-23 08:11 | Internal Med Progress Note ---
<Jess Shrestha - Last Filed: 11/23/17 10:24> Date of Encounter: 11/23/17 Time of Encounter: 07:50 - Assessment and plan (1) Acute and chronic respiratory failure with hypoxia Current Visit: Yes Status: Acute Assessment and plan: - Initial ABG on 11/11/17 with pH 7.37, pCO2 50, pO2 70 and HCO3 29. - Likely multifactorial including right hemothorax in the setting of COPD and history of right spontaneous pneumothorax. - Improves as patient reports better breathing and maintains acceptable oxygenation on 5L NC. - Antibiotics for suspected pneumonia. - Continue chest tube draining and hemothorax management per cardiothoracic surgery. - Continue steroid, Symbicort, scheduled bronchodilators and supplemental oxygen for COPD. - Patient is encouraged to use incentive spirometry. - Patient can use non-invasive ventilation as needed. - Continue to monitor closely. (2) Pneumonia Current Visit: Yes Status: Suspected Assessment and plan: - Patient had fever 100.6 and worsening leukocytosis (WBC 20.8) along with worsening shortness of breath and cough on 11/22/17, concerning of pneumonia. - CXR today found no significant change compared to yesterday. - CT chest with contrast today found worsening left lung base consolidation representing pneumonia. Minimal fluid accumulation in the right chest but no evidence of empyema. - Blood cutlures from 11/22/17 no growth so far. - Sputum gram stain from 11/22/17 found few GPC and GPR. Sputum culture pending. - Will obtain sputum culture and more blood cultures. - Continue IV levofloxacin (since 11/22/17), vancomycin (since 11/22/17) and Zosyn (since 11/22/17) for broad-spectrum coverage. Further de-escalation based on clinical picture and culture results. Qualifiers: Pneumonia type: due to unspecified organism Laterality: unspecified laterality Lung location: unspecified part of lung Qualified Code(s): J18.9 - Pneumonia, unspecified organism (3) DVT (deep venous thrombosis) Current Visit: Yes Status: Chronic Assessment and plan: - Bilateral lower extremity venous duplex on 10/24/17 found acute DVTs in bilateral gastroc veins and L ant tibial vein. - Patient was on Eliquis prior to admission. Anticoagulation had been held since given his hemothorax. - Status post IVC filer placement on 11/11/17. - Left upper extremity venous US on 11/20/17 found acute thrombosis and absent flow in left subclavian, brachial, and ulnar veins. The left axillary and basilic vein also demonstrate thrombosis with flow maintained. - Patient was started on low dose heparin drip since 11/21/17 with agreement from patient, cardiothoracic surgery and vascular surgery, - Continue low dose heparin drip with close monitoring. Qualifiers: DVT location: lower extremity Affected thrombotic vein of extremity: unspecified vein of extremity Chronicity: chronic Laterality: left Qualified Code(s): I82.502 - Chronic embolism and thrombosis of unspecified deep veins of left lower extremity (4) Hemothorax on right Current Visit: Yes Status: Resolved Assessment and plan: - CT chest on 11/10/17 found right hydropneumothorax with chest tube remaining in place and significant increase in volume of complex pleural fluid in the right chest, evidence of hemothorax. - Status post right posterior lateral thoracotomy with evacuation of hematoma on 11/11/17. - Intraoperative findings of a large amount of loculated, organized hematoma along the diaphragm, right lateral chest wall, and right apex. A loculated serosanguineous fluid flexion was also identified above the diaphragm and removed. - Patient had recurrent right hemothorax on 11/17/17 from intercostal bleeding which may be related to patient's straining during bowel movement. - Status post right posterior lateral thoracotomy, evacuation of right hemothorax and ligation of bleeding intercostal artery on 11/18/17 - Still having drainage from the two chest tubes. - Management per cardiothoracic surgery. (5) Atrial fibrillation Current Visit: Yes Status: Chronic Assessment and plan: - Currently rate-controlled. Continue metoprolol and amiodarone. - Was on Eliquis at home but all anticoagulations have been held since admission due his hemothorax. - Patient had IVC filter placed on 11/11/17. - Currently on low dose heparin drip. - Continue telemetry monitoring. Qualifiers: Atrial fibrillation type: chronic Qualified Code(s): I48.2 - Chronic atrial fibrillation (6) Anemia Current Visit: Yes Status: Chronic Assessment and plan: - Hgb as low as 6.9 on 11/17/17. - Secondary to right hemothorax. - Patient had received 8 units of pRBC transfusion during current hospitalization. - Hgb dropped slightly to 7.6 today (was 8.2 yesterday) - Continue to monitor closely. Consider more blood transfusion if Hgb < 7. Qualifiers: Anemia type: other cause Other causes of anemia: acute posthemorrhagic Qualified Code(s): D62 - Acute posthemorrhagic anemia (7) COPD (chronic obstructive pulmonary disease) Current Visit: Yes Status: Chronic Assessment and plan: - Continue steroid, Symbicort, scheduled bronchodilators and supplemental oxygen. Qualifiers: COPD type: COPD with acute exacerbation Qualified Code(s): J44.1 - Chronic obstructive pulmonary disease with (acute) exacerbation (8) CAD (coronary artery disease) Current Visit: Yes Status: Chronic Assessment and plan: - Status post CABG in August 2014. - Continue metoprolol, Lipitor and prn nitroglycerin. Qualifiers: Coronary Disease-Associated Artery/Lesion type: [place] artery [place] vs. transplanted heart: [place] heart Associated angina: without angina Qualified Code(s): I25.10 - Atherosclerotic heart disease of [place] coronary artery without angina pectoris (9) Spontaneous pneumothorax Current Visit: No Status: Acute Assessment and plan: - Status post right thoracotomy with apical bleb resection on 10/19/17. - Chest tubes in place. - Management per cardiothoracic surgery. (10) Angio-edema Current Visit: Yes Status: Resolved Assessment and plan: - Swelling of tongue, lips, and eyelids noted after thoracotomy on 11/11/17 in the PACU. Patient was reintubated for airway protection at that time. Flat pink blanchable rash in his groin and petichiae on his shins were also noted. - The cause is unclear. Patient received the following medications between admission and occurrence of Angioedema : Albumin, normal saline, Proventil, Symbicort, Precedex, Fentanyl, heparin, Solu-Medrol, Zosyn, Vancomycn, Versed, Zofran, rocuronium, morphine, Lacrilube, and anti-inhibitorcoagulaent complex. - Patient has been on lisinopril for almost a year with no known issue. No known allergies. - Lisinopril have been discontinued since. - Resolved as patient's swelling and respiratory status improved. Qualifiers: Encounter type: initial encounter Qualified Code(s): T78.3XXA - Angioneurotic edema, initial encounter - Subjective Interval history: Patient was seen and examined this morning. Patient reports some improvement on shortness of breath and cough. Patient still has some chest wall pain which he wants better pain control. Patient denies fever, chills, abdominal pain, nausea , vomiting, diarrhea. - Constitutional Vitals: Temp Pulse Resp BP Pulse Ox 97.5 F L 60 18 122/75 98 11/23/17 07:45 11/23/17 07:45 11/23/17 07:45 11/23/17 07:45 11/23/17 07:45 General appearance: Present: cooperative, A&O X 3, answers questions appropriately - Head Head exam: Present: normal inspection - Eye Eye exam: Present: EOMI, conjuntiva pink, sclera anicteric - Neck Neck exam general surgery: Present: normal inspection, supple, trachea midline - Respiratory Respiratory exam: Present: decreased breath sounds (Right lung base). Absent: accessory muscle use, rales, rhonchi, wheezes - Cardiovascular Cardiovascular exam: Present: RRR, +S1, +S2 - GI/Abdominal GI/Abdominal exam: Present: normal bowel sounds, soft, no peritoneal signs. Absent: tenderness - Extremities Exam Extremities exam: Present: pedal edema (Moderate BLE edema), warm. Absent: cyanotic - Neurological Exam Neurological exam: Present: alert, no focal deficits. Absent: facial droop, speech deficit - Skin Skin exam: Present: dry, warm Internal Medicine: Result - Labs CBC & Chem 7: 11/23/17 05:00 11/23/17 05:00 Labs: Short CBC 11/23/17 Range/Units 05:00 WBC 28.1 H (4.3-11.1) K/mcL Hgb 7.6 L (12.9-16.9) g/dL Hct 23.9 L (37.5-50.1) % Plt Count 245 (140-400) K/mcL Neutrophils # 24.2 H (1.6-8.9) K/mcL BMP 11/23/17 05:00 Sodium 133 L Potassium 4.0 Chloride 98 Carbon Dioxide 32 H BUN 23 Creatinine 0.92 Glucose 120 H Calcium 8.3 L - ABG Interpretation ABG results: ABG ABG pH 7.35 pH Units (7.32-7.45) 11/18/17 02:49 ABG pCO2 57 mmHg (35-45) H 11/18/17 02:49 ABG pO2 72 mmHg (85-104) L 11/18/17 02:49 ABG O2 Saturation 93 % (95-98) L 11/18/17 02:49 PT/INR, D-dimer PT 12.4 Seconds (9.4-12.1) H 11/21/17 10:25 - Impressions Impressions Chest X-Ray 11/22/17 06:00 IMPRESSION: Stable position of right chest tubes. Unchanged appearance of possible trace right apical pneumothorax. Mild right basilar atelectasis. D/ / Brandon Clark MD / Brandon Clark MD Interpreting Provider: Brandon Clark MD Chest X-Ray 11/23/17 06:00 IMPRESSION: Small right apical pneumothorax with chest tubes in place. D/ / Cordell Jeffrey MD / Cordell Jeffrey MD Interpreting Provider: Cordell Jeffrey MD - VTE Documentation of Mechanical Device: Intermittent pneumatic compression device Consult Discharge Plan - Plan Referrals: Nga Blackwell MD [Partnered Physician] - 12/13/17 1:00 pm Eleazar Kee CNP [Primary Care Provider] - 12/06/17 9:30 am <Kandy Alejandre - Last Filed: 11/23/17 12:58> Date of Encounter: 11/23/17 - Constitutional Vitals: Temp Pulse Resp BP Pulse Ox 98.3 F 68 17 115/63 93 11/23/17 12:07 11/23/17 12:07 11/23/17 12:07 11/23/17 12:07 11/23/17 12:07 Internal Medicine: Result - Labs CBC & Chem 7: 11/23/17 05:00 11/23/17 05:00 Labs: Short CBC 11/23/17 Range/Units 05:00 WBC 28.1 H (4.3-11.1) K/mcL Hgb 7.6 L (12.9-16.9) g/dL Hct 23.9 L (37.5-50.1) % Plt Count 245 (140-400) K/mcL Neutrophils # 24.2 H (1.6-8.9) K/mcL BMP 11/23/17 05:00 Sodium 133 L Potassium 4.0 Chloride 98 Carbon Dioxide 32 H BUN 23 Creatinine 0.92 Glucose 120 H Calcium 8.3 L - ABG Interpretation ABG results: ABG ABG pH 7.35 pH Units (7.32-7.45) 11/18/17 02:49 ABG pCO2 57 mmHg (35-45) H 11/18/17 02:49 ABG pO2 72 mmHg (85-104) L 11/18/17 02:49 ABG O2 Saturation 93 % (95-98) L 11/18/17 02:49 PT/INR, D-dimer PT 12.4 Seconds (9.4-12.1) H 11/21/17 10:25 - Impressions Impressions Chest X-Ray 11/23/17 06:00 IMPRESSION: Small right apical pneumothorax with chest tubes in place. D/ / Cordell Jeffrey MD / Cordell Jeffrey MD Interpreting Provider: Cordell Jeffrey MD Chest CT 11/23/17 08:15 IMPRESSION: 1. Right lower lobe consolidation and pleural effusion has markedly improved with minimal bandlike reticular densities and trace pleural effusion. 2. Two right chest tubes remain in place. Small residual right pneumothorax. 3. A right apical region consolidation and fluid also has resolved but the lung appears not to have fully expanded resulting in small residual surrounding pneumothorax in addition to bullae. 4. Near complete resolution of extensive right chest subcutaneous emphysema. 5. Worsening left lung base consolidation representing pneumonia. D/ / Leonard Dale MD / Leonard Dale MD Interpreting Provider: Leonard Dale MD - Attending Attestation I examined this patient and my medical decision-making was reviewed with the Resident Physician Dr. Fady. I agree with the documented findings, disposition and treatment plan as described except to the extent set forth below. Mr. Johnson is a 62 year old male patient with history of coronary artery disease, atrial fibrillation, bilateral deep vein thrombosis , COPD, hypertension, recent MRSA pneumonia and bacteremia admitted here this time for acute hypoic resp failure with hemo thorax. He did have thoracotomy on 11/11/17 , however he developed recurrent right hemothorax on 11/17/17 from intercostal bleeding which may be related to patient's straining during bowel movement. He did have Right posterior lateral thoracotomy, evacuation of right hemothorax and ligation of bleeding intercostal artery on 11/18/17. He did develop Left subclavian, brachial and ulnar vein thrombosis where he had PICC line placed in. Pt stated his SOB is little better today. Currently on 5 lit O2..No fever spikes since last night Gen: A A, O X 3.. Mild Resp distress Chest: Diminished BS b/l basal, mild crackles on Rt basal region, no wheezing Heart : S1 S2 + RRR No murmurs Ext: 2+ Pitting edema a/p 1. Sepsis with fever and Leukocytosis 2. Pneumonia - mostly bacterial 3. Recent h/o MRSA Bacteremia He does meet Sepsis criteria Improving Blood cx - No growth so far broad spec abx - Vanco + Zosyn + Levaquin Since his WBC trending up - we did CT of Chest - showed LLL Pneumonia Encouraged to do more frequent Spirometry 4. Acute hypoxic resp failure with Recurrent Rt hemo thorax s/p thoracotmoy x 2 5. s/p VDRF -Possible Angioedema 6. Volume overload - mostly due to deconditioning cont bronchodilators Cont low dose steroids He does have crackles and significant b/l LE edema.. cont him on IV Lasix 7. Acute Left UE DVT Since he tolerated heparin gtt well so far.. Cont Heparin at standard dose 8. Chronic narcotic dependence 9. Chest wall pain adjusted pain meds
[2017-11-23] MEDS: Sennosides/Docusate Sodium TABLET PO SCH ×2 (09:00→22:42)
[2017-11-23] MEDS: Furosemide 40 MG/4 ML VIAL IVP SCH ×2 (09:01→17:57)
[2017-11-23] MEDS: *HR* LORazepam 1 MG TABLET PO PRN (09:01)
[2017-11-23] MEDS: Vancomycin 1,250 MG in D5% in Water 250 ML IVPB SCH ×2 (09:01→22:43)
[2017-11-23] MEDS: Nystatin Cream 15 GM TUBE TP SCH ×2 (09:03→22:42)
[2017-11-23] MEDS: Fluticasone Propionate Nasal 50 MCG/SPRAY BOTTLE NS SCH (09:03)
[2017-11-23] MEDS: *HR* Amiodarone 200 MG TABLET PO SCH (09:31)
--- NOTE | 2017-11-23 09:35 | Pulmonology Progress Note ---
Date of Encounter: 11/23/17 Time of Encounter: 07:30 Assessment and Plan (1) Acute and chronic respiratory failure with hypoxia Current Visit: Yes Status: Acute Patient has acute on chronic respiratory failure with hypoxia multifactorial , Right sided hemothorax which is almost resolved , COPD exacerbation , chronic diastolic heart failure to wean FIO2 to keep around SPO2 around 92% To continue incentive spirometry , encourage sitting so the right basilar atelectasis will get better . Currently doing well his dyspnea on exertion almost getting to baseline. (2) COPD exacerbation Current Visit: No Status: Acute To continue bronchodilators and steroids can slowly taper the steroids he will need a prolonged taper when he is ready for discharge. (3) Hemothorax Current Visit: Yes Status: Acute S/p thoractomy and chest tube drainage managment according to . Chest CT looks stable , patient is on anticoagulation for his upper extremity DVT . (4) Atrial fibrillation Current Visit: Yes Status: Chronic To continue amiodarone and lopressor Qualifiers: Atrial fibrillation type: chronic Qualified Code(s): I48.2 - Chronic atrial fibrillation (5) Leukocytosis Current Visit: Yes Status: Acute Patient leukocytosis is worsening most likely due to demarginzation of neutrophils due to steroids will closely follow the bands there is no concern for empyema if it is worsening will have low to rule out C diff . Qualifiers: Qualified Code(s): D72.829 - Elevated white blood cell count, unspecified Subjective Principal diagnosis: Hemothorax Interval history: Patient is sitting and playing cards with his son , says shortness of breadth is lot better denies any chest pain or tightness . Objective PUL Vital signs: Last Vital Signs Temp 97.5 F L 11/23/17 07:45 Pulse 71 11/23/17 08:55 Resp 19 11/23/17 08:55 BP 122/75 11/23/17 07:45 Pulse Ox 92 11/23/17 08:55 Auscultation: right: other (scattered carckles ) Results - Laboratory Findings CBC and BMP: 11/23/17 05:00 11/23/17 05:00 ABG ABG pH 7.35 pH Units (7.32-7.45) 11/18/17 02:49 ABG pCO2 57 mmHg (35-45) H 11/18/17 02:49 ABG pO2 72 mmHg (85-104) L 11/18/17 02:49 ABG O2 Saturation 93 % (95-98) L 11/18/17 02:49 PT/INR, D-dimer PT 12.4 Seconds (9.4-12.1) H 11/21/17 10:25 Abnormal lab findings: Abnormal lab results WBC 28.1 K/mcL (4.3-11.1) H 11/23/17 05:00 RBC 2.68 M/mcL (4.19-5.50) L 11/23/17 05:00 Hgb 7.6 g/dL (12.9-16.9) L 11/23/17 05:00 Hct 23.9 % (37.5-50.1) L 11/23/17 05:00 RDW 16.0 % (11.5-14.5) H 11/23/17 05:00 Band Neutrophils % 8.0 % (0-4) H 11/23/17 05:00 Neutrophils # 24.2 K/mcL (1.6-8.9) H 11/23/17 05:00 Monocytes # 2.8 K/mcL (0.0-1.3) H 11/23/17 05:00 Nucleated RBCs/100 WBC 0.1 /100 WBC (0) H 11/22/17 01:40 PT 12.4 Seconds (9.4-12.1) H 11/21/17 10:25 APTT 82.6 Seconds (26.0-36.0) H 11/23/17 05:00 ABG pCO2 57 mmHg (35-45) H 11/18/17 02:49 ABG pO2 72 mmHg (85-104) L 11/18/17 02:49 ABG HCO3 31 mEq/L (21-27) H 11/18/17 02:49 ABG Total CO2 33 mEq/L (20-26) H 11/18/17 02:49 ABG O2 Saturation 93 % (95-98) L 11/18/17 02:49 ABG Base Excess 5 mEq/L (-2 to 3) H 11/18/17 02:49 VBG pCO2 54 mmHg (41-51) H 11/14/17 07:43 VBG pO2 53 mmHg (25-50) H 11/14/17 07:43 VBG HCO3 31 mEq/L (21-27) H 11/14/17 07:43 Sodium 133 mEq/L (136-145) L 11/23/17 05:00 Carbon Dioxide 32 mEq/L (23-29) H 11/23/17 05:00 Glucose 120 mg/dL (70-105) H 11/23/17 05:00 POC Glucose 150 (58-89) H 11/18/17 23:48 Lactic Acid < 0.2 mmol/L (0.5-2.2) L 11/11/17 08:51 Calcium 8.3 mg/dL (8.6-10.3) L 11/23/17 05:00 Troponin I 0.05 ng/mL (< 0.04) H* 11/11/17 02:12 Serum Total Protein 4.6 g/dL (6.4-8.9) L 11/18/17 05:28 Albumin 2.5 g/dL (3.5-5.7) L 11/18/17 05:28 Globulin 2.1 g/dL (2.4-3.5) L 11/18/17 05:28 Nasal Screen MRSA (PCR) Positive (Negative) A 11/16/17 09:50 - Microbiology Findings Microbiology Findings: Microbiology, Last 48 Hours 11/22/17 01:40 Blood Culture - Preliminary Peripheral Venipuncture No growth. 11/22/17 18:15 Sputum Culture - Preliminary Sputum - Clinical Findings Intake & Output: Intake & Output 11/22/17 11/23/17 11/23/17 23:59 07:59 15:59 Intake Total 200 / 200 1220 / 1220 0 / 0 Output Total 80 / 80 550 / 550 0 / 0 Balance 120 / 120 670 / 670 0 / 0 - VTE Documentation of Mechanical Device: Intermittent pneumatic compression device Consult Discharge Plan - Plan Referrals: Nga Blackwell MD [Partnered Physician] - 12/13/17 1:00 pm Eleazar Kee CNP [Primary Care Provider] - 12/06/17 9:30 am
--- NOTE | 2017-11-23 09:38 | Cardiothoracic Progress Note ---
Date of Encounter: 11/23/17 Time of Encounter: 09:35 - Assessment and plan (1) Hemothorax on right Current Visit: Yes Status: Resolved The patient remained hemodynamically stable overnight. He has less breathing difficulty this morning and states that he feels better. The chest tubed have no air leak. The patient had a chest CT this morning which shows minimal fluid accumulation in the right chest and no evidence of empyema. There is a possible left lower lobe pneumonia. He is currently on broad-spectrum antibiotics. The assessment and plan as outlined above was discussed with the patient and/or family members who expressed understanding and agreement. All questions were answered. - Subjective Procedure(s) Performed: POD#13 S/P Right thoracotomy with evacuation of hematoma POD#7 S/P Second right thoracotomy with evacuation of hematoma Interval history: The patient remained hemodynamically stable overnight. He sitting in a chair eating breakfast. He appears more comfortable this morning. He has no complaints. Vital Signs, Last 4 Hours Temp Pulse Resp BP Pulse Ox 11/23/17 08:55 63 19 92 11/23/17 07:45 97.5 F L 60 18 122/75 98 11/23/17 07:35 16 93 Oxgyen Flow Rate Oxygen Flow Rate (LPM) 5 Clinical Data, last 8 Hours Output, Chest Tube Drainage 0 Amount [RC2] Output, Chest Tube Drainage 0 Amount [RC1] Output, Urine Amount 0 Output, Urine Amount 300 Output, Urine Amount 0 Weight 11/21/17 11/22/17 11/23/17 23:59 23:59 23:59 Weight 81.5 kg 81.5 kg - Physical Examination General: Conversant, No Apparent Distress Neck: No JVD, Normal carotid pulses Cardiac: Normal S1 and S2, No Murmur, Other (Irregular rate and rhythm (atrial fibrillation)) Incision: No signs of infection, Dry/intact dressing Chest tubes: Minimal drainage, Other (No air leak) Lungs: Normal Breath Sounds, No Wheeze, Rales, Rhonchi Neuro: Alert and responsive, No focal deficits noted Vascular: Normal capillary refill Extremities: No Clubbing, No Cyanosis, No Edema - Labs 11/23/17 05:00 11/23/17 05:00 Lab Results, Last 24 hours 11/22/17 11/22/17 11/23/17 14:52 23:00 05:00 WBC 28.1 H Hgb 7.6 L Hct 23.9 L Plt Count 245 APTT 55.2 H 71.7 H Sodium Potassium Chloride Carbon Dioxide BUN Creatinine Glucose Calcium 11/23/17 11/23/17 05:00 05:00 WBC Hgb Hct Plt Count APTT 82.6 H Sodium 133 L Potassium 4.0 Chloride 98 Carbon Dioxide 32 H BUN 23 Creatinine 0.92 Glucose 120 H Calcium 8.3 L - Imaging Chest Xray: image reviewed (Small right apical pneumothorax.) - VTE Documentation of Mechanical Device: Intermittent pneumatic compression device Consult Discharge Plan - Plan Referrals: Nga Blackwell MD [Partnered Physician] - 12/13/17 1:00 pm Eleazar Kee CNP [Primary Care Provider] - 12/06/17 9:30 am
--- NOTE | 2017-11-23 12:54 | Vascular/[facility] Progress Note ---
Date of Encounter: 11/23/17 Time of Encounter: 12:52 - Assessment and plan (1) Deep venous thrombosis of left upper extremity Current Visit: Yes Status: Acute left upper extremity shows marked improvement over past 48 hours. Qualifiers: Affected thrombotic vein of extremity: axillary Chronicity: acute Qualified Code(s): I82.A12 - Acute embolism and thrombosis of left axillary vein (2) Hemothorax Current Visit: Yes Status: Acute Patient's hemothorax is treated with right thoracotomies and draining right chest tubes 2. (3) Atrial fibrillation Current Visit: Yes Status: Chronic Patient is under medical treatment for atrial fibrillation. He will eventually need to be restarted on his oral anticoagulants. Qualifiers: Atrial fibrillation type: chronic Qualified Code(s): I48.2 - Chronic atrial fibrillation - Subjective Interval history: Patient has no new complaints overnight. Left arm is feeling better. Vital Signs, Last 4 Hours Temp Pulse Resp BP Pulse Ox 11/23/17 12:07 98.3 F 68 17 115/63 93 11/23/17 11:24 16 93 11/23/17 11:20 68 95 11/23/17 08:55 63 19 92 - Physical Examination General: Present: Conversant, No Apparent Distress Vascular: Present: Edema (left arm edema is significantly improved. No tenderness.) - VTE Documentation of Mechanical Device: Intermittent pneumatic compression device Results 11/23/17 05:00 11/23/17 05:00 Lab Results, Last 24 hours 11/22/17 11/22/17 11/23/17 14:52 23:00 05:00 WBC 28.1 H Hgb 7.6 L Hct 23.9 L Plt Count 245 APTT 55.2 H 71.7 H Sodium Potassium Chloride Carbon Dioxide BUN Creatinine Glucose Calcium 11/23/17 11/23/17 05:00 05:00 WBC Hgb Hct Plt Count APTT 82.6 H Sodium 133 L Potassium 4.0 Chloride 98 Carbon Dioxide 32 H BUN 23 Creatinine 0.92 Glucose 120 H Calcium 8.3 L Consult Discharge Plan - Plan Referrals: Nga Blackwell MD [Partnered Physician] - 12/13/17 1:00 pm Eleazar Kee CNP [Primary Care Provider] - 12/06/17 9:30 am
[2017-11-23] MEDS: Lactulose Oral Soln 20 GM/30 ML UDC PO PRN (12:57)
[2017-11-23 18:25] LABS: Hematocrit 23.1 % (37.5-50.1); Hemoglobin 7.3 g/dL (12.9-16.9)
[2017-11-23] MEDS: Temazepam 15 MG CAPSULE PO PRN (22:46)
[2017-11-24] MEDS: Levofloxacin 750 MG/150 ML 750 MG/150 ML BAG IVPB SCH (00:37)
[2017-11-24] MEDS: Piperacillin/Tazobactam 3.375 GM/200 ML BAG IVPB SCH ×4 (00:38→22:59)
[2017-11-24] MEDS: *HR* HYDROcodone/Acet 10/325 mg TABLET PO PRN ×6 (00:39→22:58)
[2017-11-24] MEDS: Heparin 25,000 UNIT/500 ML D5W 25,000 UNIT/500 ML BAG IVC SCH ×2 (01:41→17:11)
[2017-11-24] MEDS: *HR* LORazepam 1 MG TABLET PO PRN ×2 (01:46→23:17)
[2017-11-24] MEDS: *HR* Morphine 2 MG/ML SYRINGE IVP PRN ×8 (03:59→22:59)
[2017-11-24] MEDS: Ipratropium/Albuterol Neb 3 ML IH SCH ×5 (04:00→20:55)
[2017-11-24 06:35] LABS: Basophils % 0.1 %; Hematocrit 21.6 % (37.5-50.1); Hemoglobin 6.9 g/dL (12.9-16.9); Immature Granulocytes % 0.8 % (0-4); Lymphocytes # 0.7 K/mcL (0.6-4.6); Lymphocytes % 2.9 %; Mean Corpuscular HGB Conc 31.9 g/dL (31.6-35.5); Mean Corpuscular Hemoglobin 28.3 pg (28.0-33.3); Mean Corpuscular Volume 88.5 fL (83.0-100.0); Mean Platelet Volume 9.7 fL (9.4-12.4); Nucleated Red Blood Cells 0.2 /100 WBC (0); Platelet Count 254 K/mcL (140-400); Red Blood Count 2.44 M/mcL (4.19-5.50); Red Cell Distribution Width 15.9 % (11.5-14.5); Segmented Neutrophils % 88.2 %
[2017-11-24 06:51] LABS: BUN/Creatinine Ratio 25 (6-26); Blood Urea Nitrogen 25 mg/dL (8-23); Calcium 8.3 mg/dL (8.6-10.3); Carbon Dioxide 33 mEq/L (23-29); Chloride 98 mEq/L (98-107); Glucose 137 mg/dL (70-105); Osmolality,Calculated 285 (280-300); Potassium 3.8 mEq/L (3.5-5.1); Sodium 134 mEq/L (136-145); eGFR For African Americans > 60 (> 60); eGFR For Non-African Americans > 60 (> 60)
[2017-11-24 06:55] LABS: Platelet Estimate Normal (Normal)
[2017-11-24] MEDS: Budesonide/Formoterol 80/4.5 MDI IH SCH ×2 (07:23→20:55)
--- NOTE | 2017-11-24 07:37 | Cardiothoracic Progress Note ---
Date of Encounter: 11/24/17 Time of Encounter: 07:35 - Assessment and plan (1) Hemothorax on right Current Visit: Yes Status: Resolved The patient remained hemodynamically stable overnight. He has less breathing difficulty this morning and states that he feels better. Chest x-ray shows no change. The patient's WBC is decreasing and he is on broad-spectrum antibiotics. His hemoglobin is below 7 and he will receive 1 unit PRBC today. The assessment and plan as outlined above was discussed with the patient and/or family members who expressed understanding and agreement. All questions were answered. - Subjective Procedure(s) Performed: POD#14 S/P Right thoracotomy with evacuation of hematoma POD#7 S/P Second right thoracotomy with evacuation of hematoma Interval history: The patient remained hemodynamically stable overnight. He can comfortably in his hospital bed. He appears more comfortable this morning. He has no complaints. Vital Signs, Last 4 Hours Temp Pulse Resp BP Pulse Ox 11/24/17 04:25 98.0 F 65 19 130/74 95 11/24/17 04:00 76 Oxgyen Flow Rate Oxygen Flow Rate (LPM) 5 Clinical Data, last 8 Hours Output, Chest Tube Drainage 0 Amount [RC2] Output, Chest Tube Drainage 0 Amount [RC1] Output, Urine Amount 0 Output, Urine Amount 100 Output, Urine Amount 0 Weight 11/22/17 11/23/17 11/24/17 23:59 23:59 23:59 Weight 81.5 kg 81.5 kg 82.3 kg - Physical Examination General: Conversant, No Apparent Distress Neck: No JVD, Normal carotid pulses Cardiac: Reg Rate and Rhythm, Normal S1 and S2, No Murmur Incision: No signs of infection, Dry/intact dressing Chest tubes: Minimal drainage, Other (No air leak) Lungs: Normal Breath Sounds, No Wheeze, Rales, Rhonchi Neuro: Alert and responsive, No focal deficits noted Vascular: Normal capillary refill Extremities: No Clubbing, No Cyanosis, No Edema - Labs 11/24/17 06:15 11/24/17 06:15 Lab Results, Last 24 hours 11/23/17 11/24/17 11/24/17 18:00 06:15 06:15 WBC 24.9 H Hgb 7.3 L 6.9 L Hct 23.1 L 21.6 L Plt Count 254 APTT 43.5 H Sodium Potassium Chloride Carbon Dioxide BUN Creatinine Glucose Calcium 11/24/17 06:15 WBC Hgb Hct Plt Count APTT Sodium 134 L Potassium 3.8 Chloride 98 Carbon Dioxide 33 H BUN 25 H Creatinine 1.02 Glucose 137 H Calcium 8.3 L - Imaging Chest Xray: image reviewed (Small right apical pneumothorax, unchanged.) - VTE Documentation of Mechanical Device: Intermittent pneumatic compression device Consult Discharge Plan - Plan Referrals: Nga Blackwell MD [Partnered Physician] - 12/13/17 1:00 pm Eleazar Kee CNP [Primary Care Provider] - 12/06/17 9:30 am
[2017-11-24] MEDS ORDERED: Aminoglycoside Consult 1 EACH MC ONE (08:12)
[2017-11-24] MEDS: Furosemide 40 MG/4 ML VIAL IVP SCH (08:15)
[2017-11-24] MEDS: Sennosides/Docusate Sodium TABLET PO SCH ×2 (08:16→20:44)
[2017-11-24] MEDS: *HR* Amiodarone 200 MG TABLET PO SCH (08:16)
[2017-11-24] MEDS: Fluticasone Propionate Nasal 50 MCG/SPRAY BOTTLE NS SCH (08:17)
[2017-11-24] MEDS: Nystatin Cream 15 GM TUBE TP SCH ×2 (08:17→20:45)
[2017-11-24] MEDS: Vancomycin 1,250 MG in D5% in Water 250 ML IVPB SCH ×2 (08:31→20:45)
[2017-11-24] MEDS: *HR* Heparin 5,000 UNIT/ML VIAL IVP PRN (08:32)
[2017-11-24] MEDS ORDERED: MethylPREDNISolone 40 MG/ML VIAL IVP SCH (09:00)
--- NOTE | 2017-11-24 09:04 | Pulmonology Progress Note ---
Date of Encounter: 11/24/17 Time of Encounter: 09:00 Assessment and Plan (1) Acute and chronic respiratory failure with hypoxia Current Visit: Yes Status: Acute Patient has acute on chronic respiratory failure with hypoxia multifactorial , Right sided hemothorax which is almost resolved , COPD exacerbation , chronic diastolic heart failure to wean FIO2 to keep around SPO2 around 92% To continue incentive spirometry , encourage sitting so the right basilar atelectasis will get better . Currently doing well his dyspnea on exertion almost getting to baseline. (2) COPD exacerbation Current Visit: No Status: Acute To continue bronchodilators and steroids can slowly taper the steroids he will need a prolonged taper when he is ready for discharge.For now agree with slow taper . (3) Hemothorax Current Visit: Yes Status: Acute S/p thoractomy and chest tube drainage managment according to . Chest CT looks stable , patient is on anticoagulation for his upper extremity DVT . there was sight drop in Hb getting 1 unit of blood . (4) Atrial fibrillation Current Visit: Yes Status: Chronic To continue amiodarone and lopressor Qualifiers: Atrial fibrillation type: chronic Qualified Code(s): I48.2 - Chronic atrial fibrillation (5) Leukocytosis Current Visit: Yes Status: Acute Patient leukocytosis is worsening most likely due to demarginzation of neutrophils due to steroids will closely follow the bands there is no concern for empyema if it is worsening will have low to rule out C diff . 11/24 -Wbc's are trending down if it is trending down further tomorrow we can start descalating antibiotics . Qualifiers: Qualified Code(s): D72.829 - Elevated white blood cell count, unspecified Subjective Principal diagnosis: Hemothorax Interval history: Patient said he had a good night except for chest tube site pain he is doing otherwise well Objective PUL Vital signs: Last Vital Signs Temp 97.9 F 11/24/17 08:40 Pulse 76 11/24/17 08:40 Resp 20 11/24/17 08:40 BP 137/86 11/24/17 08:40 Pulse Ox 94 11/24/17 08:40 Auscultation: right: diminished breath sounds Cardiovascular: irregular rhythm Extremities: edema Results - Laboratory Findings CBC and BMP: 11/24/17 15:57 11/24/17 06:15 ABG ABG pH 7.35 pH Units (7.32-7.45) 11/18/17 02:49 ABG pCO2 57 mmHg (35-45) H 11/18/17 02:49 ABG pO2 72 mmHg (85-104) L 11/18/17 02:49 ABG O2 Saturation 93 % (95-98) L 11/18/17 02:49 PT/INR, D-dimer PT 12.4 Seconds (9.4-12.1) H 11/21/17 10:25 Abnormal lab findings: Abnormal lab results WBC 24.9 K/mcL (4.3-11.1) H 11/24/17 06:15 RBC 2.44 M/mcL (4.19-5.50) L 11/24/17 06:15 Hgb 6.9 g/dL (12.9-16.9) L 11/24/17 06:15 Hct 21.6 % (37.5-50.1) L 11/24/17 06:15 RDW 15.9 % (11.5-14.5) H 11/24/17 06:15 Band Neutrophils % 8.0 % (0-4) H 11/23/17 05:00 Neutrophils # 22.0 K/mcL (1.6-8.9) H 11/24/17 06:15 Monocytes # 2.0 K/mcL (0.0-1.3) H 11/24/17 06:15 Nucleated RBCs/100 WBC 0.2 /100 WBC (0) H 11/24/17 06:15 PT 12.4 Seconds (9.4-12.1) H 11/21/17 10:25 APTT 43.5 Seconds (26.0-36.0) H 11/24/17 06:15 ABG pCO2 57 mmHg (35-45) H 11/18/17 02:49 ABG pO2 72 mmHg (85-104) L 11/18/17 02:49 ABG HCO3 31 mEq/L (21-27) H 11/18/17 02:49 ABG Total CO2 33 mEq/L (20-26) H 11/18/17 02:49 ABG O2 Saturation 93 % (95-98) L 11/18/17 02:49 ABG Base Excess 5 mEq/L (-2 to 3) H 11/18/17 02:49 VBG pCO2 54 mmHg (41-51) H 11/14/17 07:43 VBG pO2 53 mmHg (25-50) H 11/14/17 07:43 VBG HCO3 31 mEq/L (21-27) H 11/14/17 07:43 Sodium 134 mEq/L (136-145) L 11/24/17 06:15 Carbon Dioxide 33 mEq/L (23-29) H 11/24/17 06:15 BUN 25 mg/dL (8-23) H 11/24/17 06:15 Glucose 137 mg/dL (70-105) H 11/24/17 06:15 POC Glucose 150 (58-89) H 11/18/17 23:48 Lactic Acid < 0.2 mmol/L (0.5-2.2) L 11/11/17 08:51 Calcium 8.3 mg/dL (8.6-10.3) L 11/24/17 06:15 Troponin I 0.05 ng/mL (< 0.04) H* 11/11/17 02:12 Serum Total Protein 4.6 g/dL (6.4-8.9) L 11/18/17 05:28 Albumin 2.5 g/dL (3.5-5.7) L 11/18/17 05:28 Globulin 2.1 g/dL (2.4-3.5) L 11/18/17 05:28 Nasal Screen MRSA (PCR) Positive (Negative) A 11/16/17 09:50 - Microbiology Findings Microbiology Findings: Microbiology, Last 48 Hours 11/22/17 03:50 Blood Culture - Preliminary Peripheral Venipuncture No growth. 11/22/17 03:50 Blood Culture - Preliminary Peripheral Venipuncture No growth. 11/22/17 09:43 Blood Culture - Preliminary Peripheral Central Cath, Picc No growth. 11/22/17 18:15 Sputum Culture - Preliminary Sputum 11/22/17 01:40 Blood Culture - Preliminary Peripheral Venipuncture No growth. - Clinical Findings Intake & Output: Intake & Output 11/23/17 11/24/17 11/24/17 23:59 07:59 15:59 Intake Total 760 / 760 1220 / 1220 182 / 182 Output Total 300 / 300 100 / 100 300 / 300 Balance 460 / 460 1120 / 1120 -118 / -118 Weight 82.3 kg - VTE Documentation of Mechanical Device: Intermittent pneumatic compression device Consult Discharge Plan - Plan Referrals: Nga lBackwell MD [Partnered Physician] - 12/13/17 1:00 pm Eleazar Kee CNP [Primary Care Provider] - 12/06/17 9:30 am
--- NOTE | 2017-11-24 09:48 | Internal Med Progress Note ---
Date of Encounter: 11/24/17 Time of Encounter: 09:10 - Assessment and plan (1) Sepsis Current Visit: Yes Status: Acute Assessment and plan: Fever + Elevated WBC + Source of inf as LLL PNA Improving WBC trending down cont broad spec abx another day Levaquin + Zosyn + Vanco Qualifiers: Sepsis type: sepsis due to unspecified organism Qualified Code(s): A41.9 - Sepsis, unspecified organism (2) Hemothorax on right Current Visit: Yes Status: Resolved Assessment and plan: - Patient had recurrent right hemothorax on 11/17/17 from intercostal bleeding which may be related to patient's straining during bowel movement. - Status post right posterior lateral thoracotomy, evacuation of right hemothorax and ligation of bleeding intercostal artery on 11/18/17 - Improved drainage from the two chest tubes - Management per cardiothoracic surgery - Possible d/c chest tubes in AM if pt WBC starts trending down, develops no fever (3) Acute and chronic respiratory failure with hypoxia Current Visit: Yes Status: Acute Assessment and plan: Improving currently on 5 lit O2 does use 3 lit at bed time at home try to wean him off the O2 to baseline as he tolerates cont tapering steroids cont fritz broncodilators (4) Volume overload Current Visit: Yes Status: Acute Assessment and plan: due to deconditioning switch to PO Lasix today Qualifiers: Qualified Code(s): E87.70 - Fluid overload, unspecified (5) COPD exacerbation Current Visit: No Status: Acute Assessment and plan: Improving cont tapering steroids (6) MRSA bacteremia Current Visit: No Status: Resolved Assessment and plan: - Blood cultures from 10/24/17 (2/2) grew MRSA sensitive to vancomycin, daptomycin, doxycycline, gentamicin, linezolid, tetracycline and Bactrim. - Repeat blood cultures on 10/25/17 had no growth. - TTE on 10/30/17 found LVEF 60% and no visible vegetation. - PRAVEENA on 10/31/17LVEF 60% and no evidence of vegetation. Pt already finished full course of IV Vancomycin With his recent fever, and leukocytosis repeated blood cx - no growth so far (7) Lower extremity edema Current Visit: No Status: Acute (8) Atrial fibrillation Current Visit: Yes Status: Chronic Assessment and plan: Rate controlled on Heparin for anti coag Qualifiers: Atrial fibrillation type: chronic Qualified Code(s): I48.2 - Chronic atrial fibrillation (9) Deep venous thrombosis of left upper extremity Current Visit: Yes Status: Acute Assessment and plan: cont heparin gtt for now Qualifiers: Affected thrombotic vein of extremity: axillary Chronicity: acute Qualified Code(s): I82.A12 - Acute embolism and thrombosis of left axillary vein (10) Pneumonia Current Visit: Yes Status: Suspected Assessment and plan: -Improving - Mostly bacterial - Cont broad spec abx coverage Qualifiers: Pneumonia type: due to unspecified organism Laterality: unspecified laterality Lung location: unspecified part of lung Qualified Code(s): J18.9 - Pneumonia, unspecified organism (11) Leukocytosis Current Visit: Yes Status: Acute Assessment and plan: trending down Qualifiers: Qualified Code(s): D72.829 - Elevated white blood cell count, unspecified (12) Anemia Current Visit: Yes Status: Chronic Assessment and plan: Anemia - could be recent hemo thorax no acute drainage noticed now cont close monitoring will transfuse 1 U PRBC today Qualifiers: Anemia type: other cause Other causes of anemia: acute posthemorrhagic Qualified Code(s): D62 - Acute posthemorrhagic anemia - Subjective Interval history: Mr. Johnson is a 62 year old male patient with history of coronary artery disease, atrial fibrillation, bilateral deep vein thrombosis , COPD, hypertension, recent MRSA pneumonia and bacteremia admitted here this time for acute hypoic resp failure with hemo thorax. He did have thoracotomy on 11/11/17 , however he developed recurrent right hemothorax on 11/17/17 from intercostal bleeding which may be related to patient's straining during bowel movement. He did have Right posterior lateral thoracotomy, evacuation of right hemothorax and ligation of bleeding intercostal artery on 11/18/17. He did develop Left subclavian, brachial and ulnar vein thrombosis where he had PICC line placed in. Pt stated his SOB is much better today. Still on 5 lit O2..No fever spikes since last 48hrs - Constitutional Vitals: Temp Pulse Resp BP Pulse Ox 97.9 F 76 20 137/86 94 11/24/17 08:40 11/24/17 08:40 11/24/17 08:40 11/24/17 08:40 11/24/17 08:40 General appearance: Present: cooperative, A&O X 3, answers questions appropriately - Head Head exam: Present: atraumatic, normal inspection - Neck Neck exam general surgery: Present: supple - Respiratory Respiratory exam: Present: decreased breath sounds, wheezes (mild). Absent: rales, respiratory distress, rhonchi Additional comments: chest tubes + Rt side - Cardiovascular Cardiovascular exam: Present: RRR, +S1, +S2. Absent: tachycardia - Extremities Exam Extremities exam: Present: pedal edema (2+ edema.. improving swelling.). Absent : calf tenderness, tenderness - Back Exam Back exam: Absent: CVA tenderness (L), CVA tenderness (R) - Psychiatric Psychiatric exam: Present: normal affect, normal mood - Skin Skin exam: Absent: rash Internal Medicine: Result - Labs CBC & Chem 7: 11/24/17 06:15 11/24/17 06:15 Labs: Short CBC 11/23/17 11/24/17 Range/Units 18:00 06:15 WBC 24.9 H (4.3-11.1) K/mcL Hgb 7.3 L 6.9 L (12.9-16.9) g/dL Hct 23.1 L 21.6 L (37.5-50.1) % Plt Count 254 (140-400) K/mcL Neutrophils # 22.0 H (1.6-8.9) K/mcL BMP 11/24/17 06:15 Sodium 134 L Potassium 3.8 Chloride 98 Carbon Dioxide 33 H BUN 25 H Creatinine 1.02 Glucose 137 H Calcium 8.3 L - ABG Interpretation ABG results: ABG ABG pH 7.35 pH Units (7.32-7.45) 11/18/17 02:49 ABG pCO2 57 mmHg (35-45) H 11/18/17 02:49 ABG pO2 72 mmHg (85-104) L 11/18/17 02:49 ABG O2 Saturation 93 % (95-98) L 11/18/17 02:49 PT/INR, D-dimer PT 12.4 Seconds (9.4-12.1) H 11/21/17 10:25 - Impressions Impressions Chest X-Ray 11/24/17 06:00 IMPRESSION: No change. D/ /24/2017 07:23:49 Prince Schmitt MD / nate Interpreting Provider: Prince Schmitt MD - VTE Documentation of Mechanical Device: Intermittent pneumatic compression device Consult Discharge Plan - Plan Referrals: Nga Blackwell MD [Partnered Physician] - 12/13/17 1:00 pm Eleazar Kee CNP [Primary Care Provider] - 12/06/17 9:30 am
[2017-11-24] MEDS: MethylPREDNISolone 40 MG/ML VIAL IVP SCH (10:29)
[2017-11-24] MEDS ORDERED: 0.9 % Sodium Chloride 250 ML ONE (12:31)
[2017-11-24] MEDS: Furosemide 40 MG TABLET PO SCH (15:41)
[2017-11-24 16:16] LABS: Hematocrit 27.1 % (37.5-50.1); Hemoglobin 8.4 g/dL (12.9-16.9)
[2017-11-24] MEDS: Temazepam 15 MG CAPSULE PO PRN (22:58)
[2017-11-25] MEDS: Ipratropium/Albuterol Neb 3 ML IH SCH ×6 (00:38→20:36)
[2017-11-25] MEDS: Levofloxacin 750 MG/150 ML 750 MG/150 ML BAG IVPB SCH (01:17)
[2017-11-25] MEDS: *HR* Morphine 2 MG/ML SYRINGE IVP PRN ×4 (01:17→22:59)
[2017-11-25 01:53] LABS: Basophils % 0.1 %; Hematocrit 24.4 % (37.5-50.1); Hemoglobin 7.7 g/dL (12.9-16.9); Immature Granulocytes % 0.7 % (0-4); Lymphocytes # 0.7 K/mcL (0.6-4.6); Lymphocytes % 3.7 %; Mean Corpuscular HGB Conc 31.6 g/dL (31.6-35.5); Mean Corpuscular Hemoglobin 27.6 pg (28.0-33.3); Mean Corpuscular Volume 87.5 fL (83.0-100.0); Mean Platelet Volume 9.9 fL (9.4-12.4); Monocytes # 1.4 K/mcL (0.0-1.3); Monocytes % 6.8 %; Neutrophils # 17.7 K/mcL (1.6-8.9); Nucleated Red Blood Cells 0.2 /100 WBC (0); Platelet Count 268 K/mcL (140-400); Red Blood Count 2.79 M/mcL (4.19-5.50); Red Cell Distribution Width 15.9 % (11.5-14.5); Segmented Neutrophils % 88.7 %
[2017-11-25 02:20] LABS: BUN/Creatinine Ratio 24 (6-26); Blood Urea Nitrogen 25 mg/dL (8-23); Carbon Dioxide 31 mEq/L (23-29); Chloride 99 mEq/L (98-107); Glucose 197 mg/dL (70-105); Magnesium 1.7 mg/dL (1.6-2.6); Osmolality,Calculated 292 (280-300); Potassium 3.8 mEq/L (3.5-5.1); Sodium 136 mEq/L (136-145); eGFR For African Americans > 60 (> 60); eGFR For Non-African Americans > 60 (> 60)
[2017-11-25] MEDS: *HR* Heparin 5,000 UNIT/ML VIAL IVP PRN (02:43)
[2017-11-25] MEDS: *HR* LORazepam 1 MG TABLET PO PRN ×3 (04:34→21:13)
[2017-11-25] MEDS: *HR* HYDROcodone/Acet 10/325 mg TABLET PO PRN ×4 (04:34→21:13)
[2017-11-25] MEDS: Fluticasone Propionate Nasal 50 MCG/SPRAY BOTTLE NS SCH (07:44)
[2017-11-25] MEDS: Piperacillin/Tazobactam 3.375 GM/200 ML BAG IVPB SCH ×3 (07:45→22:59)
[2017-11-25] MEDS: *HR* Amiodarone 200 MG TABLET PO SCH (07:45)
[2017-11-25] MEDS: Furosemide 40 MG TABLET PO SCH ×2 (07:45→16:20)
[2017-11-25] MEDS: Sennosides/Docusate Sodium TABLET PO SCH ×2 (07:45→21:13)
[2017-11-25] MEDS: Nystatin Cream 15 GM TUBE TP SCH ×2 (07:46→21:14)
[2017-11-25] MEDS: Budesonide/Formoterol 80/4.5 MDI IH SCH ×2 (08:12→20:37)
[2017-11-25] MEDS: Vancomycin 1,250 MG in D5% in Water 250 ML IVPB SCH (08:30)
--- NOTE | 2017-11-25 09:59 | Cardiothoracic Progress Note ---
Date of Encounter: 11/25/17 Time of Encounter: 09:57 - Assessment and plan (1) Hemothorax on right Current Visit: Yes Status: Resolved The patient remained hemodynamically stable overnight. He has less breathing difficulty this morning and states that he feels better. Chest x-ray shows no change. The patient's WBC is decreasing and he is on broad-spectrum antibiotics. He should continue ambulating the hallways at least 3 times a day and when necessary. The assessment and plan as outlined above was discussed with the patient and/or family members who expressed understanding and agreement. All questions were answered. - Subjective Procedure(s) Performed: POD#15 S/P Right thoracotomy with evacuation of hematoma POD#8 S/P Second right thoracotomy with evacuation of hematoma Interval history: The patient remained hemodynamically stable overnight. He is resting comfortably in his hospital bed. He was able to walk in the hallways last night and again this morning without difficulty. He appears more comfortable this morning. He has no complaints. Vital Signs, Last 4 Hours Temp Pulse Resp BP Pulse Ox 11/25/17 07:54 98.3 F 58 18 157/85 95 Oxgyen Flow Rate Oxygen Flow Rate (LPM) 5 Clinical Data, last 8 Hours Output, Chest Tube Drainage 0 Amount [RC2] Output, Chest Tube Drainage 0 Amount [RC2] Output, Chest Tube Drainage 0 Amount [RC1] Output, Chest Tube Drainage 30 Amount [RC1] Output, Urine Amount 325 Weight 11/23/17 11/24/17 11/25/17 23:59 23:59 23:59 Weight 81.5 kg 82.3 kg - Physical Examination General: Conversant, No Apparent Distress Neck: No JVD, Normal carotid pulses Cardiac: Reg Rate and Rhythm, Normal S1 and S2, No Murmur Incision: No signs of infection, Dry/intact dressing Chest tubes: Minimal drainage, Other (No air leak) Lungs: Normal Breath Sounds, No Wheeze, Rales, Rhonchi Neuro: Alert and responsive, No focal deficits noted Vascular: Normal capillary refill Extremities: No Clubbing, No Cyanosis, No Edema - Labs 11/25/17 00:30 11/25/17 00:30 Lab Results, Last 24 hours 11/24/17 11/24/17 11/25/17 15:57 15:57 00:30 WBC Hgb 8.4 L D Hct 27.1 L Plt Count APTT 70.8 H D 55.6 H Sodium Potassium Chloride Carbon Dioxide BUN Creatinine Glucose Calcium Magnesium 11/25/17 11/25/17 11/25/17 00:30 00:30 08:34 WBC 20.0 H Hgb 7.7 L Hct 24.4 L Plt Count 268 APTT 65.9 H Sodium 136 Potassium 3.8 Chloride 99 Carbon Dioxide 31 H BUN 25 H Creatinine 1.04 Glucose 197 H Calcium 8.0 L Magnesium 1.7 - Imaging Chest Xray: image reviewed (No change in small right apical pneumothorax.) - VTE Documentation of Mechanical Device: Intermittent pneumatic compression device Consult Discharge Plan - Plan Referrals: Nga Blackwell MD [Partnered Physician] - 12/13/17 1:00 pm Eleazar Kee CNP [Primary Care Provider] - 12/06/17 9:30 am
--- NOTE | 2017-11-25 10:43 | Pulmonology Progress Note ---
Date of Encounter: 11/25/17 Time of Encounter: 10:00 Assessment and Plan (1) Acute and chronic respiratory failure with hypoxia Current Visit: Yes Status: Acute Patient has acute on chronic respiratory failure with hypoxia multifactorial , Right sided hemothorax which is almost resolved , COPD exacerbation , chronic diastolic heart failure to wean FIO2 to keep around SPO2 around 92% To continue incentive spirometry , encourage sitting so the right basilar atelectasis will get better . Currently doing well his dyspnea on exertion almost getting to baseline. To continue spirometry , PT/OT will needs exercise oximetry before discharge to ascertain home oxygen needs . (2) COPD exacerbation Current Visit: No Status: Acute To continue bronchodilators and steroids can slowly taper the steroids he will need a prolonged taper when he is ready for discharge.For now agree with slow taper . On discharge send him home 40 mg x 5 days , 30 mg x 5days , 20mg x 5days , 10 mg x 10 days . To continue the home bronchodilator , Duoneb nebulizer q h6rly , Symbciort as BID , MARSHA prn . will sign of call with questions . Patient has a follow up as outpatient . (3) Hemothorax Current Visit: Yes Status: Acute S/p thoractomy and chest tube drainage managment according to . Chest CT looks stable , patient is on anticoagulation for his upper extremity DVT . there was sight drop in Hb got 1 unit blood yesterday . Hb is stable . Chest tubes might come out tomorrow . (4) Atrial fibrillation Current Visit: Yes Status: Chronic To continue amiodarone and lopressor Qualifiers: Atrial fibrillation type: chronic Qualified Code(s): I48.2 - Chronic atrial fibrillation (5) Leukocytosis Current Visit: Yes Status: Acute Patient leukocytosis is worsening most likely due to demarginzation of neutrophils due to steroids will closely follow the bands there is no concern for empyema if it is worsening will have low to rule out C diff . 11/24 -Wbc's are trending down if it is trending down further tomorrow we can start descalating antibiotics . 11/25 - Wbc's trending down will stop vancomycin after the chest tube is removed if the cultures are still negative then we can stop zosyn. Qualifiers: Qualified Code(s): D72.829 - Elevated white blood cell count, unspecified Subjective Principal diagnosis: Hemothorax Interval history: Patient said he had a good night denies any symptoms . Objective PUL Vital signs: Last Vital Signs Temp 98.3 F 11/25/17 07:54 Pulse 62 11/25/17 07:54 Resp 18 11/25/17 07:54 BP 157/85 11/25/17 07:54 Pulse Ox 95 11/25/17 07:54 Auscultation: right: diminished breath sounds (in the base ) Cardiovascular: irregular rhythm Extremities: edema Results - Laboratory Findings CBC and BMP: 11/25/17 00:30 11/25/17 00:30 ABG ABG pH 7.35 pH Units (7.32-7.45) 11/18/17 02:49 ABG pCO2 57 mmHg (35-45) H 11/18/17 02:49 ABG pO2 72 mmHg (85-104) L 11/18/17 02:49 ABG O2 Saturation 93 % (95-98) L 11/18/17 02:49 PT/INR, D-dimer PT 12.4 Seconds (9.4-12.1) H 11/21/17 10:25 Abnormal lab findings: Abnormal lab results WBC 20.0 K/mcL (4.3-11.1) H 11/25/17 00:30 RBC 2.79 M/mcL (4.19-5.50) L 11/25/17 00:30 Hgb 7.7 g/dL (12.9-16.9) L 11/25/17 00:30 Hct 24.4 % (37.5-50.1) L 11/25/17 00:30 MCH 27.6 pg (28.0-33.3) L 11/25/17 00:30 RDW 15.9 % (11.5-14.5) H 11/25/17 00:30 Band Neutrophils % 8.0 % (0-4) H 11/23/17 05:00 Neutrophils # 17.7 K/mcL (1.6-8.9) H 11/25/17 00:30 Monocytes # 1.4 K/mcL (0.0-1.3) H 11/25/17 00:30 Nucleated RBCs/100 WBC 0.2 /100 WBC (0) H 11/25/17 00:30 PT 12.4 Seconds (9.4-12.1) H 11/21/17 10:25 APTT 65.9 Seconds (26.0-36.0) H 11/25/17 08:34 ABG pCO2 57 mmHg (35-45) H 11/18/17 02:49 ABG pO2 72 mmHg (85-104) L 11/18/17 02:49 ABG HCO3 31 mEq/L (21-27) H 11/18/17 02:49 ABG Total CO2 33 mEq/L (20-26) H 11/18/17 02:49 ABG O2 Saturation 93 % (95-98) L 11/18/17 02:49 ABG Base Excess 5 mEq/L (-2 to 3) H 11/18/17 02:49 VBG pCO2 54 mmHg (41-51) H 11/14/17 07:43 VBG pO2 53 mmHg (25-50) H 11/14/17 07:43 VBG HCO3 31 mEq/L (21-27) H 11/14/17 07:43 Carbon Dioxide 31 mEq/L (23-29) H 11/25/17 00:30 BUN 25 mg/dL (8-23) H 11/25/17 00:30 Glucose 197 mg/dL (70-105) H 11/25/17 00:30 POC Glucose 150 (58-89) H 11/18/17 23:48 Lactic Acid < 0.2 mmol/L (0.5-2.2) L 11/11/17 08:51 Calcium 8.0 mg/dL (8.6-10.3) L 11/25/17 00:30 Troponin I 0.05 ng/mL (< 0.04) H* 11/11/17 02:12 Serum Total Protein 4.6 g/dL (6.4-8.9) L 11/18/17 05:28 Albumin 2.5 g/dL (3.5-5.7) L 11/18/17 05:28 Globulin 2.1 g/dL (2.4-3.5) L 11/18/17 05:28 Nasal Screen MRSA (PCR) Positive (Negative) A 11/16/17 09:50 - Microbiology Findings Microbiology Findings: Microbiology, Last 48 Hours 11/22/17 18:15 Sputum Culture - Final Sputum 11/22/17 03:50 Blood Culture - Preliminary Peripheral Venipuncture No growth. 11/22/17 03:50 Blood Culture - Preliminary Peripheral Venipuncture No growth. 11/22/17 09:43 Blood Culture - Preliminary Peripheral Central Cath, Picc No growth. 11/22/17 01:40 Blood Culture - Preliminary Peripheral Venipuncture No growth. - Clinical Findings Intake & Output: Intake & Output 11/24/17 11/25/17 11/25/17 23:59 07:59 15:59 Intake Total 584 / 584 626 / 626 1296 / 1296 Output Total 565 / 565 355 / 355 Balance 271 / 271 1296 / 1296 - VTE Documentation of Mechanical Device: Intermittent pneumatic compression device Consult Discharge Plan - Plan Referrals: Nga Blackwell MD [Partnered Physician] - 12/13/17 1:00 pm Eleazar Kee CNP [Primary Care Provider] - 12/06/17 9:30 am
[2017-11-25] MEDS: MethylPREDNISolone 40 MG/ML VIAL IVP SCH (11:10)
--- NOTE | 2017-11-25 13:54 | Internal Med Progress Note ---
Date of Encounter: 11/25/17 Time of Encounter: 13:52 - Assessment and plan (1) Sepsis Current Visit: Yes Status: Acute Assessment and plan: Fever + Elevated WBC + Source of inf as LLL PNA Improving WBC trending down cont broad spec abx Levaquin + Zosyn Sputum cx no growth..Blood cx no growth so far will d/c Vanco Qualifiers: Sepsis type: sepsis due to unspecified organism Qualified Code(s): A41.9 - Sepsis, unspecified organism (2) Hemothorax on right Current Visit: Yes Status: Resolved Assessment and plan: Patient had recurrent right hemothorax on 11/17/17 from intercostal bleeding which may be related to patient's straining during bowel movement. Status post right posterior lateral thoracotomy, evacuation of right hemothorax and ligation of bleeding intercostal artery on 11/18/17 Improved drainage from the two chest tubes Management per cardiothoracic surgery Possible d/c chest tubes in AM if pt WBC starts trending down, develops no fever (3) Acute and chronic respiratory failure with hypoxia Current Visit: Yes Status: Acute Assessment and plan: Improving currently on 3 lit O2 does use 3 lit at bed time at home try to wean him off the O2 to baseline as he tolerates cont tapering steroids cont fritz broncodilators (4) Volume overload Current Visit: Yes Status: Acute Assessment and plan: due to deconditioning Cont PO Lasix Qualifiers: Qualified Code(s): E87.70 - Fluid overload, unspecified (5) COPD exacerbation Current Visit: No Status: Acute Assessment and plan: Improving cont tapering steroids (6) MRSA bacteremia Current Visit: No Status: Resolved Assessment and plan: Blood cultures from 10/24/17 (2/2) grew MRSA sensitive to vancomycin, daptomycin , doxycycline, gentamicin, linezolid, tetracycline and Bactrim. Repeat blood cultures on 10/25/17 had no growth. TTE on 10/30/17 found LVEF 60% and no visible vegetation. PRAVEENA on 10/31/17LVEF 60% and no evidence of vegetation. Pt already finished full course of IV Vancomycin With his recent fever, and leukocytosis repeated blood cx - no growth so far (7) Lower extremity edema Current Visit: No Status: Acute (8) Atrial fibrillation Current Visit: Yes Status: Chronic Assessment and plan: Rate controlled with Amiodarone and Metoprolol on Heparin for anti coag Qualifiers: Atrial fibrillation type: chronic Qualified Code(s): I48.2 - Chronic atrial fibrillation (9) Deep venous thrombosis of left upper extremity Current Visit: Yes Status: Acute Assessment and plan: cont heparin gtt for now Qualifiers: Affected thrombotic vein of extremity: axillary Chronicity: acute Qualified Code(s): I82.A12 - Acute embolism and thrombosis of left axillary vein (10) Pneumonia Current Visit: Yes Status: Suspected Assessment and plan: -Improving - Mostly bacterial - Cont broad spec abx coverage Qualifiers: Pneumonia type: due to unspecified organism Laterality: unspecified laterality Lung location: unspecified part of lung Qualified Code(s): J18.9 - Pneumonia, unspecified organism (11) Leukocytosis Current Visit: Yes Status: Acute Assessment and plan: trending down Qualifiers: Qualified Code(s): D72.829 - Elevated white blood cell count, unspecified (12) Anemia Current Visit: Yes Status: Chronic Assessment and plan: Anemia - could be recent hemo thorax no acute drainage noticed now s/p 1 U PRBC..Hb stable @ 7.7 cont close monitoring Qualifiers: Anemia type: other cause Other causes of anemia: acute posthemorrhagic Qualified Code(s): D62 - Acute posthemorrhagic anemia - Subjective Interval history: Mr. Johnson is a 62 year old male patient with history of coronary artery disease, atrial fibrillation, bilateral deep vein thrombosis , COPD, hypertension, recent MRSA pneumonia and bacteremia admitted here this time for acute hypoic resp failure with hemo thorax. He did have thoracotomy on 11/11/17 , however he developed recurrent right hemothorax on 11/17/17 from intercostal bleeding which may be related to patient's straining during bowel movement. He did have Right posterior lateral thoracotomy, evacuation of right hemothorax and ligation of bleeding intercostal artery on 11/18/17. He did develop Left subclavian, brachial and ulnar vein thrombosis where he had PICC line placed in. Pt stated his SOB is much better today. Still on 5 lit O2, just turned it down to 3 lit.. so far doing well. No fever spikes since last 3 days - Constitutional Vitals: Temp Pulse Resp BP Pulse Ox 98.0 F 62 18 147/102 93 11/25/17 11:19 11/25/17 11:19 11/25/17 11:19 11/25/17 11:19 11/25/17 11:19 General appearance: Present: cooperative, A&O X 3, answers questions appropriately - Head Head exam: Present: atraumatic, normal inspection - Neck Neck exam general surgery: Present: supple - Respiratory Respiratory exam: Present: decreased breath sounds, wheezes (mild). Absent: rales, respiratory distress, rhonchi Additional comments: chest tubes on Rt side - Cardiovascular Cardiovascular exam: Present: +S1, +S2 - GI/Abdominal GI/Abdominal exam: Present: normal bowel sounds, soft. Absent: rebound, rigid, tenderness - Extremities Exam Extremities exam: Present: pedal edema (2+--Improving). Absent: calf tenderness , tenderness - Back Exam Back exam: Absent: CVA tenderness (L), CVA tenderness (R) - Psychiatric Psychiatric exam: Present: normal affect, normal mood Internal Medicine: Result - Labs CBC & Chem 7: 11/25/17 00:30 11/25/17 00:30 Labs: Short CBC 11/24/17 11/25/17 Range/Units 15:57 00:30 WBC 20.0 H (4.3-11.1) K/mcL Hgb 8.4 L D 7.7 L (12.9-16.9) g/dL Hct 27.1 L 24.4 L (37.5-50.1) % Plt Count 268 (140-400) K/mcL Neutrophils # 17.7 H (1.6-8.9) K/mcL BMP 11/25/17 00:30 Sodium 136 Potassium 3.8 Chloride 99 Carbon Dioxide 31 H BUN 25 H Creatinine 1.04 Glucose 197 H Calcium 8.0 L - ABG Interpretation ABG results: ABG ABG pH 7.35 pH Units (7.32-7.45) 11/18/17 02:49 ABG pCO2 57 mmHg (35-45) H 11/18/17 02:49 ABG pO2 72 mmHg (85-104) L 11/18/17 02:49 ABG O2 Saturation 93 % (95-98) L 11/18/17 02:49 PT/INR, D-dimer PT 12.4 Seconds (9.4-12.1) H 11/21/17 10:25 - Impressions Impressions Chest X-Ray 11/25/17 06:00 IMPRESSION: No change. D/ / 11/25/2017 07:11:03 Prince Schmitt MD / earchris Interpreting Provider: Prince Schmitt MD - VTE Documentation of Mechanical Device: Intermittent pneumatic compression device Consult Discharge Plan - Plan Referrals: Nga Blackwell MD [Partnered Physician] - 12/13/17 1:00 pm Eleazar Kee CNP [Primary Care Provider] - 12/06/17 9:30 am
[2017-11-25] MEDS: Temazepam 15 MG CAPSULE PO PRN (22:59)
[2017-11-26] MEDS: Heparin 25,000 UNIT/500 ML D5W 25,000 UNIT/500 ML BAG IVC SCH (00:04)
[2017-11-26] MEDS: Ipratropium/Albuterol Neb 3 ML IH SCH ×6 (00:45→20:08)
[2017-11-26] MEDS: Levofloxacin 750 MG/150 ML 750 MG/150 ML BAG IVPB SCH (01:18)
[2017-11-26] MEDS: *HR* LORazepam 1 MG TABLET PO PRN ×2 (04:35→19:43)
[2017-11-26] MEDS: *HR* HYDROcodone/Acet 10/325 mg TABLET PO PRN ×4 (04:35→19:43)
[2017-11-26 05:13] LABS: Basophils % 0.1 %; Hematocrit 25.3 % (37.5-50.1); Hemoglobin 8.2 g/dL (12.9-16.9); Immature Granulocytes % 0.7 % (0-4); Lymphocytes # 0.7 K/mcL (0.6-4.6); Lymphocytes % 4.1 %; Mean Corpuscular HGB Conc 32.4 g/dL (31.6-35.5); Mean Corpuscular Hemoglobin 28.6 pg (28.0-33.3); Mean Corpuscular Volume 88.2 fL (83.0-100.0); Mean Platelet Volume 9.7 fL (9.4-12.4); Monocytes # 1.4 K/mcL (0.0-1.3); Monocytes % 8.6 %; Nucleated Red Blood Cells 0.1 /100 WBC (0); Platelet Count 293 K/mcL (140-400); Red Blood Count 2.87 M/mcL (4.19-5.50); Red Cell Distribution Width 15.8 % (11.5-14.5); Segmented Neutrophils % 86.5 %
[2017-11-26 05:34] LABS: BUN/Creatinine Ratio 28 (6-26); Blood Urea Nitrogen 23 mg/dL (8-23); Calcium 8.4 mg/dL (8.6-10.3); Carbon Dioxide 35 mEq/L (23-29); Chloride 100 mEq/L (98-107); Glucose 147 mg/dL (70-105); Osmolality,Calculated 296 (280-300); Potassium 3.8 mEq/L (3.5-5.1); Sodium 140 mEq/L (136-145); eGFR For African Americans > 60 (> 60); eGFR For Non-African Americans > 60 (> 60)
[2017-11-26] MEDS: *HR* Amiodarone 200 MG TABLET PO SCH (07:27)
[2017-11-26] MEDS: Nystatin Cream 15 GM TUBE TP SCH ×2 (07:28→20:55)
[2017-11-26] MEDS: Fluticasone Propionate Nasal 50 MCG/SPRAY BOTTLE NS SCH (07:28)
[2017-11-26] MEDS: predniSONE 20 MG TABLET PO SCH (07:28)
[2017-11-26] MEDS: Sennosides/Docusate Sodium TABLET PO SCH ×2 (07:28→20:55)
[2017-11-26] MEDS: Furosemide 40 MG TABLET PO SCH ×2 (07:28→15:58)
[2017-11-26] MEDS: Piperacillin/Tazobactam 3.375 GM/200 ML BAG IVPB SCH ×2 (07:28→15:58)
[2017-11-26] MEDS: Lactulose Oral Soln 20 GM/30 ML UDC PO PRN ×2 (07:39→19:43)
[2017-11-26] MEDS: *HR* Morphine 2 MG/ML SYRINGE IVP PRN ×3 (07:40→21:34)
[2017-11-26] MEDS: Budesonide/Formoterol 80/4.5 MDI IH SCH ×2 (07:54→20:08)
--- NOTE | 2017-11-26 09:49 | Cardiothoracic Progress Note ---
Date of Encounter: 11/26/17 Time of Encounter: 09:47 - Assessment and plan (1) Hemothorax on right Current Visit: Yes Status: Resolved The patient remained hemodynamically stable overnight. He has less breathing difficulty this morning and states that he is walking in the hallways without difficulty. A chest x-ray showed no change in the apical pneumothorax and the chest tubes have no air leak. The chest tubes were removed. The assessment and plan as outlined above was discussed with the patient and/or family members who expressed understanding and agreement. All questions were answered. - Subjective Procedure(s) Performed: POD#16 S/P Right thoracotomy with evacuation of hematoma POD#9 S/P Second right thoracotomy with evacuation of hematoma Interval history: The patient remained hemodynamically stable overnight. He is resting comfortably in his hospital bed. He was able to walk in the hallways last night and again this morning without difficulty. He appears more comfortable this morning. He has no complaints. Vital Signs, Last 4 Hours Temp Pulse Resp BP Pulse Ox 11/26/17 07:54 16 95 11/26/17 07:53 75 11/26/17 07:08 98.1 F 59 141/92 97 Oxgyen Flow Rate Oxygen Flow Rate (LPM) 3 Clinical Data, last 8 Hours Output, Chest Tube Drainage 0 Amount [RC2] Output, Chest Tube Drainage 0 Amount [RC2] Output, Chest Tube Drainage 0 Amount [RC1] Output, Chest Tube Drainage 0 Amount [RC1] Output, Urine Amount 450 Output, Urine Amount 200 Output, Urine Amount 350 Weight 11/24/17 11/25/17 11/26/17 23:59 23:59 23:59 Weight 82.3 kg 84.368 kg - Physical Examination General: Conversant, No Apparent Distress Neck: No JVD, Normal carotid pulses Cardiac: Normal S1 and S2, No Murmur, Other (Irregular rate and rhythm (atrial fibrillation)) Chest tubes: Minimal drainage, Other (No air leak) Lungs: Normal Breath Sounds, No Wheeze, Rales, Rhonchi Neuro: Alert and responsive, No focal deficits noted Vascular: Normal capillary refill Musculoskeletal: No Chest Wall Tenderness Extremities: No Clubbing, No Cyanosis, No Edema - Labs 11/26/17 04:45 11/26/17 04:45 Lab Results, Last 24 hours 11/25/17 11/26/17 11/26/17 14:45 04:45 04:45 WBC 16.2 H Hgb 8.2 L Hct 25.3 L Plt Count 293 APTT 68.8 H Sodium 140 Potassium 3.8 Chloride 100 Carbon Dioxide 35 H BUN 23 Creatinine 0.81 Glucose 147 H Calcium 8.4 L 11/26/17 04:45 WBC Hgb Hct Plt Count APTT 75.6 H Sodium Potassium Chloride Carbon Dioxide BUN Creatinine Glucose Calcium - Imaging Chest Xray: image reviewed (Small right apical pneumothorax, unchanged.) - VTE Documentation of Mechanical Device: Graduated compression elastic hosiery Consult Discharge Plan - Plan Referrals: Nga Blackwell MD [Partnered Physician] - 12/13/17 1:00 pm Eleazar Kee CNP [Primary Care Provider] - 12/06/17 9:30 am
--- NOTE | 2017-11-26 16:31 | Internal Med Progress Note ---
Date of Encounter: 11/26/17 Time of Encounter: 16:00 - Assessment and plan (1) Sepsis Current Visit: Yes Status: Acute Assessment and plan: Fever + Elevated WBC + Source of inf as LLL PNA Improved WBC trending down - 16.2 cont broad spec abx Levaquin + Zosyn # 6/10 If WBC improves, will deescalate to PO Levaquin in AM Sputum cx no growth..Blood cx no growth so far Qualifiers: Sepsis type: sepsis due to unspecified organism Qualified Code(s): A41.9 - Sepsis, unspecified organism (2) Hemothorax on right Current Visit: Yes Status: Resolved Assessment and plan: Patient had recurrent right hemothorax on 11/17/17 from intercostal bleeding which may be related to patient's straining during bowel movement. Status post right posterior lateral thoracotomy, evacuation of right hemothorax and ligation of bleeding intercostal artery on 11/18/17 Improved drainage from the two chest tubes Management per cardiothoracic surgery chest tubes got d/c d CTS Dr. Blackwell started the pt on Xarelto 10mg for Left UE DVT d/c Heparin (3) Acute and chronic respiratory failure with hypoxia Current Visit: Yes Status: Acute Assessment and plan: Improving currently on 3 lit O2 does use 3 lit at bed time at home try to wean him off the O2 to baseline as he tolerates cont tapering steroids cont fritz bronchodilators (4) Volume overload Current Visit: Yes Status: Acute Assessment and plan: due to deconditioning Cont PO Lasix Qualifiers: Qualified Code(s): E87.70 - Fluid overload, unspecified (5) COPD exacerbation Current Visit: No Status: Acute Assessment and plan: Improving cont tapering steroids (6) MRSA bacteremia Current Visit: No Status: Resolved Assessment and plan: Blood cultures from 10/24/17 (2/2) grew MRSA sensitive to vancomycin, daptomycin , doxycycline, gentamicin, linezolid, tetracycline and Bactrim. Repeat blood cultures on 10/25/17 had no growth. TTE on 10/30/17 found LVEF 60% and no visible vegetation. PRAVEENA on 10/31/17LVEF 60% and no evidence of vegetation. Pt already finished full course of IV Vancomycin With his recent fever, and leukocytosis repeated blood cx - no growth so far (7) Lower extremity edema Current Visit: No Status: Acute (8) Atrial fibrillation Current Visit: Yes Status: Chronic Assessment and plan: Rate controlled with Amiodarone and Metoprolol on Xarelto for anti coag Qualifiers: Atrial fibrillation type: chronic Qualified Code(s): I48.2 - Chronic atrial fibrillation (9) Deep venous thrombosis of left upper extremity Current Visit: Yes Status: Acute Assessment and plan: Dr. Blackwell did stopped heparin and started him on Xarelto 10mg daily Qualifiers: Affected thrombotic vein of extremity: axillary Chronicity: acute Qualified Code(s): I82.A12 - Acute embolism and thrombosis of left axillary vein (10) Pneumonia Current Visit: Yes Status: Suspected Assessment and plan: Improving Mostly bacterial Cont broad spec abx coverage Qualifiers: Pneumonia type: due to unspecified organism Laterality: unspecified laterality Lung location: unspecified part of lung Qualified Code(s): J18.9 - Pneumonia, unspecified organism (11) Leukocytosis Current Visit: Yes Status: Acute Assessment and plan: trending down Qualifiers: Qualified Code(s): D72.829 - Elevated white blood cell count, unspecified (12) Anemia Current Visit: Yes Status: Chronic Assessment and plan: Anemia - could be recent hemo thorax no acute drainage noticed now s/p 1 U PRBC..Hb stable @ 8.2 cont close monitoring Qualifiers: Anemia type: other cause Other causes of anemia: acute posthemorrhagic Qualified Code(s): D62 - Acute posthemorrhagic anemia - Subjective Interval history: Mr. Johnson is a 62 year old male patient with history of coronary artery disease, atrial fibrillation, bilateral deep vein thrombosis , COPD, hypertension, recent MRSA pneumonia and bacteremia admitted here this time for acute hypoic resp failure with hemo thorax. He did have thoracotomy on 11/11/17 , however he developed recurrent right hemothorax on 11/17/17 from intercostal bleeding which may be related to patient's straining during bowel movement. He did have Right posterior lateral thoracotomy, evacuation of right hemothorax and ligation of bleeding intercostal artery on 11/18/17. He did develop Left subclavian, brachial and ulnar vein thrombosis where he had PICC line placed in. Pt stated his SOB is much better today. currently on 3 lit O2. No fever spikes since last 4 days. His chest tubes got removed today - Constitutional Vitals: Temp Pulse Resp BP Pulse Ox 98.8 F 78 16 120/59 96 11/26/17 11:02 11/26/17 11:02 11/26/17 16:04 11/26/17 11:02 11/26/17 16:04 General appearance: Present: cooperative, A&O X 3, answers questions appropriately - Head Head exam: Present: atraumatic, normal inspection - Neck Neck exam general surgery: Present: supple - Respiratory Respiratory exam: Present: decreased breath sounds, wheezes (mild to moderate). Absent: rales, respiratory distress, rhonchi - Cardiovascular Cardiovascular exam: Present: RRR, +S1, +S2. Absent: tachycardia - GI/Abdominal GI/Abdominal exam: Present: normal bowel sounds, soft. Absent: rebound, rigid, tenderness - Extremities Exam Extremities exam: Present: pedal edema (improving). Absent: calf tenderness, tenderness - Back Exam Back exam: Absent: CVA tenderness (L), CVA tenderness (R) - Neurological Exam Neurological exam: Present: alert, oriented X3 - Psychiatric Psychiatric exam: Present: normal affect, normal mood Internal Medicine: Result - Labs CBC & Chem 7: 11/26/17 04:45 11/26/17 04:45 Labs: Short CBC 11/26/17 Range/Units 04:45 WBC 16.2 H (4.3-11.1) K/mcL Hgb 8.2 L (12.9-16.9) g/dL Hct 25.3 L (37.5-50.1) % Plt Count 293 (140-400) K/mcL Neutrophils # 14.0 H (1.6-8.9) K/mcL BMP 11/26/17 04:45 Sodium 140 Potassium 3.8 Chloride 100 Carbon Dioxide 35 H BUN 23 Creatinine 0.81 Glucose 147 H Calcium 8.4 L - ABG Interpretation ABG results: ABG ABG pH 7.35 pH Units (7.32-7.45) 11/18/17 02:49 ABG pCO2 57 mmHg (35-45) H 11/18/17 02:49 ABG pO2 72 mmHg (85-104) L 11/18/17 02:49 ABG O2 Saturation 93 % (95-98) L 11/18/17 02:49 PT/INR, D-dimer PT 12.4 Seconds (9.4-12.1) H 11/21/17 10:25 - Impressions Impressions Chest X-Ray 11/26/17 06:00 IMPRESSION: Stable appearance of the chest demonstrating a persistent small right apical pneumothorax. D/ / 11/26/2017 08:54:22 Jordy Flowers MD / lima Interpreting Provider: Jordy Flowers MD - VTE Documentation of Mechanical Device: Graduated compression elastic hosiery Consult Discharge Plan - Plan Referrals: Nga Blackwell MD [Partnered Physician] - 12/13/17 1:00 pm Eleazar Kee CNP [Primary Care Provider] - 12/06/17 9:30 am
[2017-11-26] MEDS ORDERED: *HR* Rivaroxaban 10 MG TABLET PO SCH (17:00)
[2017-11-26] MEDS: Temazepam 15 MG CAPSULE PO PRN (23:13)
[2017-11-27] MEDS: Ipratropium/Albuterol Neb 3 ML IH SCH ×7 (00:05→20:29)
[2017-11-27] MEDS: Levofloxacin 750 MG/150 ML 750 MG/150 ML BAG IVPB SCH (00:22)
[2017-11-27] MEDS: *HR* HYDROcodone/Acet 10/325 mg TABLET PO PRN ×5 (01:27→19:56)
[2017-11-27] MEDS: Piperacillin/Tazobactam 3.375 GM/200 ML BAG IVPB SCH ×2 (01:59→07:56)
[2017-11-27] MEDS: *HR* Morphine 2 MG/ML SYRINGE IVP PRN ×3 (04:00→18:54)
[2017-11-27 06:43] LABS: Basophils % 0.1 %; Eosinophils % 0.1 %; Hematocrit 24.3 % (37.5-50.1); Hemoglobin 7.7 g/dL (12.9-16.9); Immature Granulocytes % 0.7 % (0-4); Lymphocytes # 1.5 K/mcL (0.6-4.6); Mean Corpuscular HGB Conc 31.7 g/dL (31.6-35.5); Mean Corpuscular Hemoglobin 28.3 pg (28.0-33.3); Mean Corpuscular Volume 89.3 fL (83.0-100.0); Mean Platelet Volume 9.7 fL (9.4-12.4); Monocytes # 1.3 K/mcL (0.0-1.3); Monocytes % 9.6 %; Neutrophils # 10.6 K/mcL (1.6-8.9); Platelet Count 257 K/mcL (140-400); Red Blood Count 2.72 M/mcL (4.19-5.50); Red Cell Distribution Width 15.9 % (11.5-14.5); Segmented Neutrophils % 78.5 %
[2017-11-27 06:49] LABS: BUN/Creatinine Ratio 25 (6-26); Blood Urea Nitrogen 21 mg/dL (8-23); Calcium 8.3 mg/dL (8.6-10.3); Carbon Dioxide 35 mEq/L (23-29); Chloride 100 mEq/L (98-107); Glucose 95 mg/dL (70-105); Osmolality,Calculated 293 (280-300); Potassium 3.5 mEq/L (3.5-5.1); Sodium 140 mEq/L (136-145); eGFR For African Americans > 60 (> 60); eGFR For Non-African Americans > 60 (> 60)
[2017-11-27] MEDS: Budesonide/Formoterol 80/4.5 MDI IH SCH ×2 (07:36→20:30)
[2017-11-27] MEDS: predniSONE 20 MG TABLET PO SCH (07:57)
[2017-11-27] MEDS: Sennosides/Docusate Sodium TABLET PO SCH ×2 (07:57→21:38)
[2017-11-27] MEDS: Furosemide 40 MG TABLET PO SCH ×2 (07:57→16:37)
[2017-11-27] MEDS: *HR* Amiodarone 200 MG TABLET PO SCH (07:57)
[2017-11-27] MEDS: Nystatin Cream 15 GM TUBE TP SCH ×2 (07:58→21:39)
[2017-11-27] MEDS: Fluticasone Propionate Nasal 50 MCG/SPRAY BOTTLE NS SCH (07:58)
--- NOTE | 2017-11-27 08:52 | Cardiothoracic Progress Note ---
Date of Encounter: 11/27/17 Time of Encounter: 08:49 - Assessment and plan (1) Hemothorax on right Current Visit: Yes Status: Resolved The patient remained hemodynamically stable overnight. He has less breathing difficulty this morning and states that he is walking in the hallways without difficulty. The patient's white count is trending towards normal and his other labs are essentially normal. The antibiotics will be discontinued. If Rafa chest x-ray shows no change or improvement in the right apical pneumothorax, he may be discharged home. The assessment and plan as outlined above was discussed with the patient and/or family members who expressed understanding and agreement. All questions were answered. - Subjective Procedure(s) Performed: POD#17 S/P Right thoracotomy with evacuation of hematoma POD#10 S/P Second right thoracotomy with evacuation of hematoma Interval history: The patient remained hemodynamically stable overnight. He is resting comfortably in his hospital bed. He was able to walk in the hallways last night and again this morning without difficulty. He appears more comfortable this morning. He has no complaints. Vital Signs, Last 4 Hours Temp Pulse Resp BP Pulse Ox 11/27/17 08:01 98.6 F 66 18 154/91 95 11/27/17 07:55 69 11/27/17 07:36 16 96 Oxgyen Flow Rate Oxygen Flow Rate (LPM) 3.5 Clinical Data, last 8 Hours Output, Urine Amount 300 Output, Urine Amount 250 Weight 11/25/17 11/26/17 11/27/17 23:59 23:59 23:59 Weight 84.368 kg - Physical Examination General: Conversant, No Apparent Distress Neck: No JVD, Normal carotid pulses Cardiac: Normal S1 and S2, No Murmur, Other (Irregular rate rhythm (atrial fibrillation)) Incision: No signs of infection, Dry/intact dressing Lungs: Normal Breath Sounds, No Wheeze, Rales, Rhonchi Neuro: Alert and responsive, No focal deficits noted Vascular: Normal capillary refill Musculoskeletal: No Chest Wall Tenderness Extremities: No Clubbing, No Cyanosis, Other (2+ lower extremity edema) - Labs 11/27/17 06:25 11/27/17 06:25 Lab Results, Last 24 hours 11/27/17 11/27/17 06:25 06:25 WBC 13.5 H Hgb 7.7 L Hct 24.3 L Plt Count 257 Sodium 140 Potassium 3.5 Chloride 100 Carbon Dioxide 35 H BUN 21 Creatinine 0.85 Glucose 95 Calcium 8.3 L - Imaging Chest Xray: image reviewed (Small right apical pneumothorax, unchanged.) - VTE Documentation of Mechanical Device: Graduated compression elastic hosiery Consult Discharge Plan - Plan Referrals: Nga Blackwell MD [Partnered Physician] - 12/13/17 1:00 pm Eleazar Kee CNP [Primary Care Provider] - 12/06/17 9:30 am
[2017-11-27] MEDS: Apixaban 5 MG TABLET PO SCH (16:37)
[2017-11-27] MEDS: *HR* LORazepam 1 MG TABLET PO PRN ×2 (16:42→22:40)
--- NOTE | 2017-11-27 20:24 | Internal Med Progress Note ---
Date of Encounter: 11/27/17 Time of Encounter: 14:00 - Assessment and plan (1) Acute and chronic respiratory failure with hypoxia Current Visit: Yes Status: Acute Assessment and plan: Improving currently on 3 lit O2 does use 3 lit at bed time at home try to wean him off the O2 to baseline as he tolerates cont tapering steroids cont fritz bronchodilators (2) COPD exacerbation Current Visit: No Status: Acute Assessment and plan: We will continue tapering steroids. De-escalate antibiotic therapy. (3) Chronic systolic CHF (congestive heart failure) Current Visit: No Status: Chronic Assessment and plan: Continue with oral Lasix. Daily weights. Strict I's and O's. (4) Hemothorax on right Current Visit: Yes Status: Resolved Assessment and plan: Appreciate CT surgery follow-up. Patient currently asymptomatic after removal of chest tube. We will continue to monitor clinically. Interval history: Patient had recurrent right hemothorax on 11/17/17 from intercostal bleeding which may be related to patient's straining during bowel movement. Status post right posterior lateral thoracotomy, evacuation of right hemothorax and ligation of bleeding intercostal artery on 11/18/17 Improved drainage from the two chest tubes Management per cardiothoracic surgery chest tubes got d/c d CTS Dr. Blackwell started the pt on Xarelto 10mg for Left UE DVT d/c Heparin (5) Sepsis Current Visit: Yes Status: Acute Assessment and plan: Blood cultures are currently negative. The patient has been afebrile. We will de-escalate antibiotics. Stop Zosyn and continue Levaquin only for 2 more days. Interval history: Fever + Elevated WBC + Source of inf as LLL PNA Improved WBC trending down - 16.2 cont broad spec abx Levaquin + Zosyn # 6/10 If WBC improves, will deescalate to PO Levaquin in AM Sputum cx no growth..Blood cx no growth so far Qualifiers: Sepsis type: sepsis due to unspecified organism Qualified Code(s): A41.9 - Sepsis, unspecified organism (6) Hemothorax Current Visit: Yes Status: Acute (7) Atrial fibrillation Current Visit: Yes Status: Chronic Assessment and plan: Rate controlled with Amiodarone and Metoprolol Was on Xarelto for anti coag during this admission, however he was anticoagulated with Eliquis at home and therefore we will switch back to Eliquis. Qualifiers: Atrial fibrillation type: chronic Qualified Code(s): I48.2 - Chronic atrial fibrillation (8) Deep venous thrombosis of left upper extremity Current Visit: Yes Status: Acute Assessment and plan: Switch to Eliquis. Qualifiers: Affected thrombotic vein of extremity: axillary Chronicity: acute Qualified Code(s): I82.A12 - Acute embolism and thrombosis of left axillary vein - Subjective Interval history: Patient's chest pain and shortness of breath has resolved. Chest tube removed 4 days ago. He tolerated this well. He has increasing exercise capacity. - Constitutional Vitals: Temp Pulse Resp BP Pulse Ox 98.8 F 70 19 164/87 97 11/27/17 19:33 11/27/17 19:33 11/27/17 19:33 11/27/17 19:33 11/27/17 19:33 General appearance: Present: cooperative, A&O X 3, answers questions appropriately - Eye Eye exam: Present: PERRL, conjuntiva pink, sclera anicteric Pupils: Present: PERRL - Respiratory Respiratory exam: Present: CTAB. Absent: accessory muscle use, rales, rhonchi, wheezes - Cardiovascular Cardiovascular exam: Present: RRR, +S1, +S2. Absent: diastolic murmur, gallop, rubs, systolic murmur - GI/Abdominal GI/Abdominal exam: Present: normal bowel sounds, soft, no peritoneal signs. Absent: distended, tenderness - Extremities Exam Extremities exam: Present: warm, radial pulses palpable and symmetrical. Absent : calf tenderness, cyanotic, pedal edema - Skin Skin exam: Present: dry, intact Internal Medicine: Result - Labs CBC & Chem 7: 11/27/17 06:25 11/27/17 06:25 Labs: Short CBC 11/27/17 Range/Units 06:25 WBC 13.5 H (4.3-11.1) K/mcL Hgb 7.7 L (12.9-16.9) g/dL Hct 24.3 L (37.5-50.1) % Plt Count 257 (140-400) K/mcL Neutrophils # 10.6 H (1.6-8.9) K/mcL BMP 11/27/17 06:25 Sodium 140 Potassium 3.5 Chloride 100 Carbon Dioxide 35 H BUN 21 Creatinine 0.85 Glucose 95 Calcium 8.3 L - ABG Interpretation ABG results: ABG ABG pH 7.35 pH Units (7.32-7.45) 11/18/17 02:49 ABG pCO2 57 mmHg (35-45) H 11/18/17 02:49 ABG pO2 72 mmHg (85-104) L 11/18/17 02:49 ABG O2 Saturation 93 % (95-98) L 11/18/17 02:49 PT/INR, D-dimer PT 12.4 Seconds (9.4-12.1) H 11/21/17 10:25 - Impressions Impressions Chest X-Ray 11/27/17 06:00 IMPRESSION: No substantial change in small right apical pneumothorax after thoracostomy tube removal. D/ / Alfred Guerrero / Alfred Guerrero Interpreting Provider: Alfred Guerrero - VTE Documentation of Mechanical Device: Graduated compression elastic hosiery Consult Discharge Plan - Plan Referrals: Nga Blackwell MD [Partnered Physician] - 12/13/17 1:00 pm Eleazar Kee CNP [Primary Care Provider] - 12/06/17 9:30 am
[2017-11-27] MEDS: Temazepam 15 MG CAPSULE PO PRN (22:40)
[2017-11-28] MEDS: Ipratropium/Albuterol Neb 3 ML IH SCH ×4 (00:22→11:02)
[2017-11-28] MEDS: *HR* Morphine 2 MG/ML SYRINGE IVP PRN ×2 (00:51→09:16)
[2017-11-28] MEDS: *HR* HYDROcodone/Acet 10/325 mg TABLET PO PRN ×2 (02:30→06:25)
[2017-11-28] MEDS: Apixaban 5 MG TABLET PO SCH (05:46)
[2017-11-28 06:09] LABS: Basophils % 0.1 %; Eosinophils % 0.1 %; Hematocrit 26.9 % (37.5-50.1); Hemoglobin 8.3 g/dL (12.9-16.9); Immature Granulocytes % 0.6 % (0-4); Lymphocytes # 1.5 K/mcL (0.6-4.6); Mean Corpuscular HGB Conc 30.9 g/dL (31.6-35.5); Mean Corpuscular Hemoglobin 27.4 pg (28.0-33.3); Mean Corpuscular Volume 88.8 fL (83.0-100.0); Mean Platelet Volume 9.6 fL (9.4-12.4); Monocytes # 1.1 K/mcL (0.0-1.3); Monocytes % 8.3 %; Platelet Count 315 K/mcL (140-400); Red Blood Count 3.03 M/mcL (4.19-5.50); Segmented Neutrophils % 79.9 %
[2017-11-28 06:16] LABS: BUN/Creatinine Ratio 27 (6-26); Blood Urea Nitrogen 22 mg/dL (8-23); Calcium 8.4 mg/dL (8.6-10.3); Carbon Dioxide 36 mEq/L (23-29); Chloride 100 mEq/L (98-107); Glucose 85 mg/dL (70-105); Osmolality,Calculated 291 (280-300); Potassium 3.8 mEq/L (3.5-5.1); Sodium 139 mEq/L (136-145); eGFR For African Americans > 60 (> 60); eGFR For Non-African Americans > 60 (> 60)
[2017-11-28 07:08] VITALS: BP 158/92
[2017-11-28] MEDS: Budesonide/Formoterol 80/4.5 MDI IH SCH (07:33)
[2017-11-28] MEDS: predniSONE 20 MG TABLET PO SCH (07:45)
[2017-11-28] MEDS: Furosemide 40 MG TABLET PO SCH (07:45)
[2017-11-28] MEDS: Fluticasone Propionate Nasal 50 MCG/SPRAY BOTTLE NS SCH (07:46)
[2017-11-28] MEDS: *HR* Amiodarone 200 MG TABLET PO SCH (07:46)
[2017-11-28] MEDS: Sennosides/Docusate Sodium TABLET PO SCH (07:46)
[2017-11-28] MEDS: Nystatin Cream 15 GM TUBE TP SCH (07:46)
[2017-11-28] MEDS ORDERED: levoFLOXacin 750 MG TABLET PO SCH (09:00)
--- NOTE | 2017-11-28 10:17 | Discharge Summary ---
Date of Encounter: 11/28/17 Time of Encounter: 10:15 - Discharge Diagnosis (1) Dyspnea Priority: Primary Status: Acute Qualifiers: Qualified Code(s): R06.00 - Dyspnea, unspecified - Discharge Medications Prescriptions: HYDROcodone/Acet 10/325 mg [[place] 10-325 mg] 1 tab PO Q4HR PRN 7 Days #30 tablet PRN Reason: Pain LORazepam [Ativan] 1 mg PO Q4HR PRN #30 tablet PRN Reason: Anxiety predniSONE [PredniSONE] 40 mg PO DAILY #30 tablet Home Medications: Aspirin [Adult Low Dose Aspirin EC] 81 mg PO DAILY 02/02/16 [History] Atorvastatin Calcium [Lipitor] 80 mg PO DAILY 02/02/16 [History] Nitroglycerin [Nitrostat] 0.4 mg SL AD PRN 07/30/16 [History] Amiodarone [Cordarone] 200 mg PO DAILY 04/22/17 [History] Budesonide/Formoterol 80/4.5 [Symbicort 80/4.5] 2 puff IH BID 10/05/17 [History ] Calcium Polycarbophil [Fibercon] 625 mg PO BID PRN 10/05/17 [History] Ipratropium/Albuterol Neb [Duoneb] 3 ml IH QID 10/05/17 [History] Lisinopril [Zestril] 20 mg PO DAILY 10/05/17 [History] Metoprolol [Lopressor] 12.5 mg PO BID 10/05/17 [History] Lactulose 20 gm PO DAILY PRN #30 udc 11/01/17 [Rx] Furosemide [Lasix] 40 mg PO BID 11/06/17 [History] Apixaban [Eliquis] 5 mg PO BID 11/11/17 [History] HYDROcodone/Acet 10/325 mg [[place] 10-325 mg] 1 tab PO Q4HR PRN 7 Days #30 tablet 11/28/17 [Rx] LORazepam [Ativan] 1 mg PO Q4HR PRN #30 tablet 11/28/17 [Rx] predniSONE [PredniSONE] 40 mg PO DAILY #30 tablet 11/28/17 [Rx] Allergies/Adverse Reactions: 3 Allergy/AdvReac Type Severity Reaction Status Date / Time No Known Allergies Allergy Verified 11/06/17 11:37 Date of admission: 11/10/17 20:45 Primary care physician: Eleazar Kee CNP Consults: 11/20/17 10:46 Consult to Invasive Line Access Team [CONS] Routine Reason for Consult: EPIV insertion Line Type: EPIV 11/20/17 13:23 Consult to Vascular Surgery [CONS] Routine Consulting Provider: Vascular Surgery Génesis Reason for Consult: subclavian vein thrombosis Call Completed: Yes 11/26/17 14:15 Consult to Physical Therapy [CONS] Routine Comment: Evaluate, develop and implement POC Reason for Consult: evaluate and treatment 11/26/17 14:16 Consult to Occupational Therapy [CONS] Routine Comment: Evaluate, develop and implement POC Reason for Consult: evaluate and treatment 11/10/17 22:07 Consult to Pulmonology [CONS] Routine Consulting Provider: Pulm Crit Care & Sleep Génesis Reason for Consult: Intensive care management in patient with right sided hemothorax Call Completed: Yes Procedure(s) Performed: November 11, 2017. Right posterolateral thoracotomy with evacuation of hematoma. November 18, 2017. Right posterolateral thoracotomy with evacuation of hematoma and ligation of a bleeding posterior intercostal artery. November 11, 2017. Placement of a inferior caval filter. Discharging clinician: Mansoor Cobos Anticipated date of discharge: 11/28/17 - Patient Status Disposition: Home, Self-Care Condition: Critical Functional capacity at discharge: independent ambulation Overall status at discharge: patient is progressing back to baseline - Discharge Instructions Follow Up With: Nga Blackwell MD [Partnered Physician] - 12/13/17 1:00 pm Eleazar Kee CNP [Primary Care Provider] - 12/06/17 9:30 am - Hospital Course Hospital course: Mr. Johnson is a 62 year old male The patient is a 62-year-old gentleman who underwent open heart surgery several years ago. He does have significant COPD and was using 3 L of oxygen by nasal prong for continuous use. He was admitted to the hospital in late September with a right pneumothorax. Despite prolonged suction, the air leak would not stop. When the chest tube was taken off suction, the lung collapsed. On October 19, I took him to the operating room and performed right thoracotomy with stapling of blebs and pleurodesis. The patient had a prolonged postoperative course, complicated by MRSA pneumonia. The patient was discharged with a Heimlich valve for prolonged air leak. The patient was readmitted to the hospital with bleeding around the chest tube. On November 11, Dr. Blackwell took the patient to the operating room for right thoracotomy with evacuation of hematoma. No active bleeding was seen. He had been on blood thinner for chronic A. fib. Postoperatively he was followed by pulmonary. On November 18, 2017, he was returned to the operating room by Dr. Blackwell for right posterolateral thoracotomy and evacuation of hematoma. He also had ligation of a posterior bleeding intercostal artery. His postoperative course was complicated by left upper extremity swelling. He was seen by vascular surgery. This responded to removal of a PICC line and blood thinner. It should also be noted that the patient had placement of an inferior vena caval filter by vascular surgery on November 11, 2017. The patient's chest tubes were removed. He was started on steroids for COPD. These can be weaned as an outpatient by his primary care providers as tolerated. He otherwise did well and was discharged on November 28, 2017. At that time, lungs were clear to percussion and auscultation. His incision was healing well without signs of infection. The skin clips had been removed. Heart was in an irregular rate and rhythm. Chest x-ray revealed a small , stable right apical pneumothorax. Prescriptions are on the [employer] and include narcotics for pain. He was on chronic narcotics for low back pain. I did check the [place] automated Rx reporting system. He was given a one-week supply and he was postoperative. Appropriate precautions were given. He was to return to his previous and regular diet. He was to avoid heavy lifting for a total of 3 months after surgery. He was to avoid driving for 1 month. He was to follow up and see me in the office in 4 weeks as directed. He was to follow-up with his primary care doctors as directed. He was to call sooner for any difficulties. It should be noted that he was also given Ativan for anxiety. He had been taking this in the hospital and requested a prescription upon discharge. As mentioned, I did check the [place] automated Rx reporting system. - Time Spent with Patient Total time spent providing and/or coordinating discharge services: Physical Examination Vital Signs, Last 4 Hours Temp Pulse Resp BP Pulse Ox 11/28/17 07:37 18 97 11/28/17 07:06 98.2 F 67 16 158/92 95 - VTE Documentation of Mechanical Device: Graduated compression elastic hosiery
--- NOTE | 2017-11-28 10:37 | Internal Med Progress Note ---
Date of Encounter: 11/28/17 Time of Encounter: 10:34 - Assessment and plan (1) Acute and chronic respiratory failure with hypoxia Current Visit: Yes Status: Acute Assessment and plan: Home oxygen which he already has concentrator and portable tank. Back to baseline oxygen requirement. (2) COPD exacerbation Current Visit: No Status: Acute Assessment and plan: Discharge and prednisone 40 and slow taper by PCP. Continue with Symbicort at home. Continue with DuoNeb. (3) Chronic systolic CHF (congestive heart failure) Current Visit: No Status: Chronic Assessment and plan: Continue with oral Lasix per home dose. Sodium restricted diet. Fluid restriction. (4) Hemothorax on right Current Visit: Yes Status: Resolved Assessment and plan: Appreciate CT surgery follow-up. Patient currently asymptomatic after removal of chest tube. Discussed case with CT surgery. The patient is ready for discharge from a surgical standpoint and will need outpatient follow-up. Interval history: Patient had recurrent right hemothorax on 11/17/17 from intercostal bleeding which may be related to patient's straining during bowel movement. Status post right posterior lateral thoracotomy, evacuation of right hemothorax and ligation of bleeding intercostal artery on 11/18/17 Improved drainage from the two chest tubes Management per cardiothoracic surgery chest tubes got d/c d CTS Dr. Blackwell started the pt on Xarelto 10mg for Left UE DVT d/c Heparin (5) Sepsis Current Visit: Yes Status: Acute Assessment and plan: Blood cultures remain negative. Patient has been afebrile. He completed antibiotic course. Qualifiers: Sepsis type: sepsis due to unspecified organism Qualified Code(s): A41.9 - Sepsis, unspecified organism (6) Hemothorax Current Visit: Yes Status: Acute (7) Atrial fibrillation Current Visit: Yes Status: Chronic Assessment and plan: Rate controlled with Amiodarone and Metoprolol He was restarted on Eliquis yesterday. Continue with starting pack. Qualifiers: Atrial fibrillation type: chronic Qualified Code(s): I48.2 - Chronic atrial fibrillation (8) Deep venous thrombosis of left upper extremity Current Visit: Yes Status: Acute Assessment and plan: Continue with Eliquis. Patient is medically stable for discharge home. Qualifiers: Affected thrombotic vein of extremity: axillary Chronicity: acute Qualified Code(s): I82.A12 - Acute embolism and thrombosis of left axillary vein - Subjective Interval history: Patient's chest pain and shortness of breath has resolved. Chest tube removed 5 days ago. He continued to improve. He has increasing exercise capacity. He reports lower extremity swelling has improved with wearing compression stockings. Has been taking Lasix 40 mg twice daily while in the hospital. - Constitutional Vitals: Temp Pulse Resp BP Pulse Ox 98.2 F 67 18 158/92 97 11/28/17 07:06 11/28/17 07:06 11/28/17 07:37 11/28/17 07:06 11/28/17 07:37 General appearance: Present: cooperative, A&O X 3, answers questions appropriately - Respiratory Respiratory exam: Present: wheezes. Absent: accessory muscle use, rales, rhonchi - Cardiovascular Cardiovascular exam: Present: irregular rhythm, +S1, +S2. Absent: diastolic murmur, gallop, rubs, systolic murmur - GI/Abdominal GI/Abdominal exam: Present: normal bowel sounds, soft, no peritoneal signs. Absent: distended, tenderness - Extremities Exam Extremities exam: Present: pedal edema, warm, radial pulses palpable and symmetrical. Absent: calf tenderness, cyanotic Internal Medicine: Result - Labs CBC & Chem 7: 11/28/17 05:50 11/28/17 05:50 Labs: Short CBC 11/28/17 Range/Units 05:50 WBC 13.8 H (4.3-11.1) K/mcL Hgb 8.3 L (12.9-16.9) g/dL Hct 26.9 L (37.5-50.1) % Plt Count 315 (140-400) K/mcL Neutrophils # 11.0 H (1.6-8.9) K/mcL BMP 11/28/17 05:50 Sodium 139 Potassium 3.8 Chloride 100 Carbon Dioxide 36 H BUN 22 Creatinine 0.83 Glucose 85 Calcium 8.4 L - ABG Interpretation ABG results: ABG ABG pH 7.35 pH Units (7.32-7.45) 11/18/17 02:49 ABG pCO2 57 mmHg (35-45) H 11/18/17 02:49 ABG pO2 72 mmHg (85-104) L 11/18/17 02:49 ABG O2 Saturation 93 % (95-98) L 11/18/17 02:49 PT/INR, D-dimer PT 12.4 Seconds (9.4-12.1) H 11/21/17 10:25 - Impressions Impressions Chest X-Ray 11/28/17 06:00 IMPRESSION: Persistent small right apical pneumothorax. D/ /28/2017 08:04:29 Russel Asher MD / spencer Interpreting Provider: Russel Asher MD - VTE Documentation of Mechanical Device: Graduated compression elastic hosiery Consult Discharge Plan - Plan Referrals: Nga Blackwell MD [Partnered Physician] - 12/13/17 1:00 pm Eleazar Kee CNP [Primary Care Provider] - 12/06/17 9:30 am Prescriptions: HYDROcodone/Acet 10/325 mg [[place] 10-325 mg] 1 tab PO Q4HR PRN 7 Days #30 tablet PRN Reason: Pain LORazepam [Ativan] 1 mg PO Q4HR PRN #30 tablet PRN Reason: Anxiety predniSONE [PredniSONE] 40 mg PO DAILY #30 tablet
== END 2017-11-28 11:29 | disposition home or self-care (01) | DRG 853 ==
LOC: EMEROO 19:36 → ICNU 20:45 → SUATTDRO 20:45 → ICNU 22:07 → 2NNU 11-14 19:42 → ICNU 11-17 21:02 → 2NNU 11-20 13:55
PROVIDERS: ADMIT Internal Medicine; ATTEND Internal Medicine

== ENCOUNTER 2018-04-22 14:32 | Observation (INO) ==
[2018-04-22] MEDS ORDERED: *HR* FentaNYL (PF) 100 MCG/2 ML VIAL IVP ONE ×3 (14:56→20:38)
--- NOTE | 2018-04-22 14:56 | Emergency Department Note ---
Disposition Clinical Impression: Elevated troponin Chest pain Qualifiers: Chest pain type: unspecified Qualified Code(s): R07.9 - Chest pain, unspecified Community acquired pneumonia Qualifiers: Laterality: right Lung location: lower lobe of lung Qualified Code(s): J18.1 - Lobar pneumonia, unspecified organism Disposition: Admitted As Inpatient General Adult HPI - General Chief complaint: ED Shortness of Breath/Dyspnea Stated complaint: ZONIA,CP since october Time Seen by Provider: 04/22/18 14:51 Source: patient Limitations: no limitations Nursing Notes Reviewed: Yes Vital Signs Reviewed: Yes - History of Present Illness HPI Narrative: 63-year-old male presents emergency department with concern for chest pain. Patient states symptoms worsen or last week. Patient states that it is right- sided. Patient reports always having chest pain, as he has had thoracotomies in this area, but states that it has worsened some. Patient has known history of coronary artery disease. Patient has history of COPD as well. Pain Scale: 8 - Related Data Home Medications Medication Instructions Recorded Confirmed Atorvastatin Calcium [Lipitor] 80 mg PO HS 02/02/16 04/22/18 Nitroglycerin [Nitrostat] 0.4 mg SL Q5M PRN 07/30/16 04/22/18 Amiodarone [Cordarone] 200 mg PO DAILY 04/22/17 04/22/18 Metoprolol [Lopressor] 12.5 mg PO BID 10/05/17 04/22/18 Furosemide [Lasix] 40 mg PO DAILY 11/06/17 04/22/18 Apixaban [Eliquis] 5 mg PO BID 11/11/17 04/22/18 Albuterol Sulfate [Albuterol 2 puff IH Q6H PRN 01/31/18 04/22/18 Inhaler] HYDROcodone/Acet 10/325 mg [[place] 1 tab PO Q6H PRN 01/31/18 04/22/18 10-325 mg] Lisinopril [Zestril] 20 mg PO DAILY 01/31/18 04/22/18 Aspirin [Adult Aspirin Regimen] 81 mg PO DAILY 04/22/18 04/22/18 Calcium Polycarbophil [Fibercon] 625 mg PO BID 04/22/18 04/22/18 Previous Rx's Medication Instructions Recorded Lactulose 20 gm PO DAILY PRN #30 udc 11/01/17 Potassium Chloride 20 meq PO DAILY #14 tab.er.prt 11/28/17 Allergies Allergy/AdvReac Type Severity Reaction Status Date / Time No Known Allergies Allergy Verified 01/31/18 10:56 All systems ED: reviewed and negative except as stated. Review of Systems: As Per HPI Constitutional: Denies: fever Cardiovascular: Reports: chest pain Respiratory: Reports: cough. Denies: dyspnea, wheezes Gastrointestinal: Denies: abdominal pain, nausea, vomiting Musculoskeletal: Denies: back pain Integumentary: Denies: rash Neurological: Denies: headache Endocrine: Denies: fatigue Past Medical History - Past Medical History Medical history: Reports: asthma, atrial fibrillation, cardiomyopathy, CHF, COPD , coronary artery disease, hyperlipidemia, hypertension, myocardial infarction Surgical history: Reports: coronary bypass (CABG), herniorrhaphy, IVC Filter, other (Right thoracotomy with multiple bleb resections) Psychiatric history: Reports: anxiety - Social History Smoking Status: Former smoker Smokeless Tobacco Status: No Alcohol use: Reports: none Drug use: Reports: none Physical Exam - General Limitations: no limitations General appearance: alert, in no apparent distress - Head Head exam: atraumatic, normocephalic - Eye Eye exam: Present: EOMI. Absent: scleral icterus - ENT ENT exam: normal oropharynx - Neck Neck exam: Present: trachea midline. Absent: tenderness, meningismus - Chest Chest inspection: Present: normal inspection, symmetric chest wall rise - Respiratory Respiratory exam: Present: other (Course lung sounds throughout). Absent: respiratory distress, accessory muscle use - Cardiovascular Cardiovascular exam: Present: regular rate, normal rhythm, normal heart sounds - Abdominal Exam Abdominal exam: Present: soft, Non-Tender. Absent: distention, guarding, rebound, rigidity - Extremities Exam Extremities exam: Present: normal capillary refill. Absent: pedal edema - Back Exam Back exam: Absent: CVA tenderness (R), CVA tenderness (L) - Neurological Exam Neurological exam: Present: alert, oriented X3 - Psychiatric Psychiatric exam: Present: normal affect, normal mood - Skin Skin exam: Present: warm, dry, intact, normal color. Absent: rash Course Vital Signs Temperature 98.5 F 04/22/18 14:40 Pulse Rate 86 04/22/18 14:40 Respiratory Rate 20 04/22/18 14:40 Blood Pressure 124/80 04/22/18 14:40 O2 Sat by Pulse Oximetry 96 04/22/18 14:40 Temperature 98.5 F 04/22/18 14:40 Pulse Rate 59 04/22/18 17:40 Respiratory Rate 15 04/22/18 17:40 Blood Pressure 120/81 04/22/18 17:40 O2 Sat by Pulse Oximetry 97 04/22/18 17:40 Oxygen Delivery Oxygen Delivery Room Air Medical Decision Making - MDM Narrative Medical decision making narrative: 63-year-old male presents emergency department with concern for chest pain. Electrocardiogram was obtained reveals ST segment depressions of V2, V3, V4. Troponin is mildly elevated at 0.07. This is above this patient's baseline. Patient was given aspirin here in the emergency department as well as sublingual nitroglycerin. Nitroglycerin did not help with the patient's chest pain. He was also given fentanyl. I spoke with cardiology and Dr. Marie recommended that we give heparin via ACS protocol. Cardiology agreed to follow patient on the floor. We will obtain CT scan of the chest was also concerned about possible pneumonia as patient has a leukocytosis. Reveals small vessel airway thickening in the right lower lobe which could represent infectious or inflammatory bronchiolitis. Patient was started on Levaquin. Admission was discussed with patient and family bedside. They agreed with plan. Patient hemodynamically stable not in any acute distress at time of admission to the hospital. Vital Signs Temperature 98.5 F 04/22/18 14:40 Pulse Rate 86 04/22/18 14:40 Respiratory Rate 20 04/22/18 14:40 Blood Pressure 124/80 04/22/18 14:40 O2 Sat by Pulse Oximetry 96 04/22/18 14:40 Temperature 98.5 F 04/22/18 14:40 Pulse Rate 64 04/22/18 16:53 Respiratory Rate 15 04/22/18 16:53 Blood Pressure 123/88 04/22/18 16:53 O2 Sat by Pulse Oximetry 98 04/22/18 16:53 Oxygen Delivery Oxygen Delivery Nasal Cannula Chest X-Ray 04/22/18 14:55 IMPRESSION: 1. No active pulmonary disease. 2. COPD. D/ / Alberto Graham MD / Alberto Graham MD Interpreting Provider: Alberto Graham MD Chest CT 04/22/18 16:18 IMPRESSION: 1. Multifocal areas of scarring as well as emphysematous change identified throughout the lung parenchyma; however, no obvious acute process. 2. Fibrotic change in the lateral basal right lower lobe. 3. Small vessel airway thickening in the right lower lobe also identified, which could represent infectious or inflammatory bronchiolitis. 4. Multifocal old rib fractures on the left side, and healing rib fractures on the right. D/ / Azar Shukla / Azar Shukla Interpreting Provider: Azar Shukla - Lab Data Result diagrams: 04/22/18 15:18 04/22/18 15:18 Lab Results 04/22/18 04/22/18 04/22/18 Range/Units 15:18 15:18 15:18 WBC 19.5 H (4.3-11.1) K/mcL RBC 4.51 (4.19-5.50) M/mcL Hgb 12.0 L (12.9-16.9) g/dL Hct 37.9 (37.5-50.1) % MCV 84.0 (83.0-100.0) fL MCH 26.6 L (28.0-33.3) pg MCHC 31.7 (31.6-35.5) g/dL RDW 17.2 H (11.5-14.5) % Plt Count 196 (140-400) K/mcL MPV 10.2 (9.4-12.4) fL Seg Neutrophils % 82.0 % Lymphocytes % 18.0 % Neutrophils # 16.0 H (1.6-8.9) K/mcL Lymphocytes # 3.5 (0.6-4.6) K/mcL Hypersegmented Neuts Present A (Not Present) Platelet Estimate Normal (Normal) PT 15.3 H (9.4-12.1) Seconds INR 1.4 APTT 36.9 H (26.0-36.0) Seconds D-Dimer 370 (0-500) ng/mLFEU Sodium (136-145) mEq/L Potassium (3.5-5.1) mEq/L Chloride (98-107) mEq/L Carbon Dioxide (23-29) mEq/L BUN (8-23) mg/dL Creatinine (0.70-1.30) mg/dL Est GFR ( Amer) (> 60) Est GFR (Non-Af Amer) (> 60) BUN/Creatinine Ratio (6-26) Glucose (70-105) mg/dL Calculated Osmolality (280-300) Calcium (8.6-10.3) mg/dL Troponin I (< 0.04) ng/mL B-Natriuretic Peptide 143 H (Less than 100) pg/mL 04/22/18 Range/Units 15:18 WBC (4.3-11.1) K/mcL RBC (4.19-5.50) M/mcL Hgb (12.9-16.9) g/dL Hct (37.5-50.1) % MCV (83.0-100.0) fL MCH (28.0-33.3) pg MCHC (31.6-35.5) g/dL RDW (11.5-14.5) % Plt Count (140-400) K/mcL MPV (9.4-12.4) fL Seg Neutrophils % % Lymphocytes % % Neutrophils # (1.6-8.9) K/mcL Lymphocytes # (0.6-4.6) K/mcL Hypersegmented Neuts (Not Present) Platelet Estimate (Normal) PT (9.4-12.1) Seconds INR APTT (26.0-36.0) Seconds D-Dimer (0-500) ng/mLFEU Sodium 139 (136-145) mEq/L Potassium 4.2 (3.5-5.1) mEq/L Chloride 102 (98-107) mEq/L Carbon Dioxide 26 (23-29) mEq/L BUN 19 (8-23) mg/dL Creatinine 1.09 (0.70-1.30) mg/dL Est GFR ( Amer) > 60 (> 60) Est GFR (Non-Af Amer) > 60 (> 60) BUN/Creatinine Ratio 17 (6-26) Glucose 99 (70-105) mg/dL Calculated Osmolality 290 (280-300) Calcium 9.7 (8.6-10.3) mg/dL Troponin I 0.08 H* (< 0.04) ng/mL B-Natriuretic Peptide (Less than 100) pg/mL - EKG Data EKG #1 EKG attestation: Yes I reviewed and interpreted this EKG. EKG results narrative: 14:42 Ventricular rate 59 bpm, OR interval 151 ms, QRS duration 90 ms, QTC 480 ms, QTC 408 ms, normal axis. Sinus bradycardia with a ventricular rate of 59 bpm[address] segment depression in leads V4, V5, V6. Compared to previous electrocardiogram obtained on 01/31/2018.
[2018-04-22] MEDS: Nitroglycerin 0.4 MG TAB.SUBL SL PRN ×2 (15:26→15:31)
[2018-04-22 15:27] LABS: Hematocrit 37.9 % (37.5-50.1); Mean Corpuscular HGB Conc 31.7 g/dL (31.6-35.5); Mean Corpuscular Hemoglobin 26.6 pg (28.0-33.3); Mean Platelet Volume 10.2 fL (9.4-12.4); Platelet Count 196 K/mcL (140-400); Red Blood Count 4.51 M/mcL (4.19-5.50); Red Cell Distribution Width 17.2 % (11.5-14.5)
[2018-04-22] MEDS ORDERED: 0.9 % Sodium Chloride 500 ML ONE (15:37)
[2018-04-22 15:52] LABS: BUN/Creatinine Ratio 17 (6-26); Blood Urea Nitrogen 19 mg/dL (8-23); Calcium 9.7 mg/dL (8.6-10.3); Carbon Dioxide 26 mEq/L (23-29); Chloride 102 mEq/L (98-107); Glucose 99 mg/dL (70-105); Osmolality,Calculated 290 (280-300); Potassium 4.2 mEq/L (3.5-5.1); Sodium 139 mEq/L (136-145); eGFR For African Americans > 60 (> 60); eGFR For Non-African Americans > 60 (> 60)
[2018-04-22 15:56] LABS: Troponin I 0.08 ng/mL (< 0.04)
[2018-04-22 16:00] LABS: INR 1.4; Prothrombin Time 15.3 Seconds (9.4-12.1)
[2018-04-22 16:02] LABS: Activated Partial Thrombo Time 36.9 Seconds (26.0-36.0)
[2018-04-22 16:11] LABS: Lymphocytes # 3.5 K/mcL (0.6-4.6)
[2018-04-22] MEDS ORDERED: Aspirin 81 MG TAB.CHEW PO ONE (16:11)
[2018-04-22 16:12] LABS: Hypersegmented Neutrophils Present (Not Present)
[2018-04-22 16:13] LABS: Platelet Estimate Normal (Normal)
[2018-04-22] MEDS ORDERED: *HR* Heparin 5,000 UNIT/ML VIAL IVP ONE (16:20)
[2018-04-22] MEDS ORDERED: *HR* Heparin 5,000 UNIT/ML VIAL IVP PRN (16:20)
--- NOTE | 2018-04-22 16:30 | Emergency Department Note ---
Disposition Clinical Impression: Elevated troponin Chest pain Qualifiers: Chest pain type: unspecified Qualified Code(s): R07.9 - Chest pain, unspecified Disposition: Admitted As Inpatient Forms: ED Satisfaction Letter General Adult HPI - General Chief complaint: ED Shortness of Breath/Dyspnea Stated complaint: ZONIA,CP since october Time Seen by Provider: 04/22/18 14:51 Source: patient Limitations: no limitations - History of Present Illness Pain Scale: 5 - Related Data Home Medications Medication Instructions Recorded Confirmed Aspirin [Adult Low Dose Aspirin EC] 81 mg PO DAILY 02/02/16 01/31/18 Atorvastatin Calcium [Lipitor] 80 mg PO HS 02/02/16 01/31/18 Nitroglycerin [Nitrostat] 0.4 mg SL Q5M PRN 07/30/16 01/31/18 Amiodarone [Cordarone] 200 mg PO DAILY 04/22/17 01/31/18 Budesonide/Formoterol 80/4.5 2 puff IH BID PRN 10/05/17 01/31/18 [Symbicort 80/4.5] Ipratropium/Albuterol Neb [Duoneb] 3 ml IH QID PRN 10/05/17 01/31/18 Metoprolol [Lopressor] 12.5 mg PO BID 10/05/17 01/31/18 Furosemide [Lasix] 40 mg PO DAILY 11/06/17 01/31/18 Apixaban [Eliquis] 5 mg PO BID 11/11/17 01/31/18 Albuterol Sulfate [Albuterol 2 puff IH Q6H PRN 01/31/18 01/31/18 Inhaler] Doxycycline Monohydrate [[place]] 100 mg PO BID 01/31/18 01/31/18 Fiber Lax 250 mg PO BID PRN 01/31/18 01/31/18 HYDROcodone/Acet 10/325 mg [[place] 1 tab PO Q6H PRN 01/31/18 01/31/18 10-325 mg] LORazepam [Ativan] 1 - 2 mg PO HS PRN 01/31/18 01/31/18 Lisinopril [Zestril] 20 mg PO DAILY 01/31/18 01/31/18 Tiotropium [Spiriva] 18 mcg IH 0700 01/31/18 01/31/18 predniSONE [PredniSONE] See Taper PO DAILY 01/31/18 01/31/18 Previous Rx's Medication Instructions Recorded Lactulose 20 gm PO DAILY PRN #30 udc 11/01/17 Potassium Chloride 20 meq PO DAILY #14 tab.er.prt 11/28/17 amLODIPine [Norvasc] 2.5 mg PO DAILY #30 tablet 02/02/18 Allergies Allergy/AdvReac Type Severity Reaction Status Date / Time No Known Allergies Allergy Verified 01/31/18 10:56 Past Medical History - Past Medical History Medical history: Reports: asthma, atrial fibrillation, cardiomyopathy, CHF, COPD , coronary artery disease, hyperlipidemia, hypertension, myocardial infarction Surgical history: Reports: coronary bypass (CABG), herniorrhaphy, IVC Filter, other (Right thoracotomy with multiple bleb resections) Psychiatric history: Reports: anxiety - Social History Smoking Status: Former smoker Smokeless Tobacco Status: No Alcohol use: Reports: none Drug use: Reports: none Physical Exam - General Limitations: no limitations General appearance: alert, in no apparent distress Course Vital Signs Temperature 98.5 F 04/22/18 14:40 Pulse Rate 86 04/22/18 14:40 Respiratory Rate 20 04/22/18 14:40 Blood Pressure 124/80 04/22/18 14:40 O2 Sat by Pulse Oximetry 96 04/22/18 14:40 Temperature 98.5 F 04/22/18 14:40 Pulse Rate 59 04/22/18 15:51 Respiratory Rate 16 04/22/18 15:51 Blood Pressure 107/69 04/22/18 15:51 O2 Sat by Pulse Oximetry 96 04/22/18 15:51 Oxygen Delivery Oxygen Delivery Nasal Cannula Medical Decision Making - Lab Data Result diagrams: 04/22/18 15:18 04/22/18 15:18 Lab Results 04/22/18 04/22/18 04/22/18 Range/Units 15:18 15:18 15:18 WBC 19.5 H (4.3-11.1) K/mcL RBC 4.51 (4.19-5.50) M/mcL Hgb 12.0 L (12.9-16.9) g/dL Hct 37.9 (37.5-50.1) % MCV 84.0 (83.0-100.0) fL MCH 26.6 L (28.0-33.3) pg MCHC 31.7 (31.6-35.5) g/dL RDW 17.2 H (11.5-14.5) % Plt Count 196 (140-400) K/mcL MPV 10.2 (9.4-12.4) fL Seg Neutrophils % 82.0 % Lymphocytes % 18.0 % Neutrophils # 16.0 H (1.6-8.9) K/mcL Lymphocytes # 3.5 (0.6-4.6) K/mcL Hypersegmented Neuts Present A (Not Present) Platelet Estimate Normal (Normal) PT 15.3 H (9.4-12.1) Seconds INR 1.4 APTT 36.9 H (26.0-36.0) Seconds D-Dimer 370 (0-500) ng/mLFEU Sodium (136-145) mEq/L Potassium (3.5-5.1) mEq/L Chloride (98-107) mEq/L Carbon Dioxide (23-29) mEq/L BUN (8-23) mg/dL Creatinine (0.70-1.30) mg/dL Est GFR ( Amer) (> 60) Est GFR (Non-Af Amer) (> 60) BUN/Creatinine Ratio (6-26) Glucose (70-105) mg/dL Calculated Osmolality (280-300) Calcium (8.6-10.3) mg/dL Troponin I (< 0.04) ng/mL B-Natriuretic Peptide 143 H (Less than 100) pg/mL 04/22/18 Range/Units 15:18 WBC (4.3-11.1) K/mcL RBC (4.19-5.50) M/mcL Hgb (12.9-16.9) g/dL Hct (37.5-50.1) % MCV (83.0-100.0) fL MCH (28.0-33.3) pg MCHC (31.6-35.5) g/dL RDW (11.5-14.5) % Plt Count (140-400) K/mcL MPV (9.4-12.4) fL Seg Neutrophils % % Lymphocytes % % Neutrophils # (1.6-8.9) K/mcL Lymphocytes # (0.6-4.6) K/mcL Hypersegmented Neuts (Not Present) Platelet Estimate (Normal) PT (9.4-12.1) Seconds INR APTT (26.0-36.0) Seconds D-Dimer (0-500) ng/mLFEU Sodium 139 (136-145) mEq/L Potassium 4.2 (3.5-5.1) mEq/L Chloride 102 (98-107) mEq/L Carbon Dioxide 26 (23-29) mEq/L BUN 19 (8-23) mg/dL Creatinine 1.09 (0.70-1.30) mg/dL Est GFR ( Amer) > 60 (> 60) Est GFR (Non-Af Amer) > 60 (> 60) BUN/Creatinine Ratio 17 (6-26) Glucose 99 (70-105) mg/dL Calculated Osmolality 290 (280-300) Calcium 9.7 (8.6-10.3) mg/dL Troponin I 0.08 H* (< 0.04) ng/mL B-Natriuretic Peptide (Less than 100) pg/mL Attestation Statement - Attestation Attestation: I examined this patient and my medical decision-making was reviewed with the Resident Physician. I agree with the documented findings, disposition and treatment plan as described except to the extent set forth below. 63 year old male presnte to the ED with complaits of dyspnea and chest paina nd now has an elevated troponin of 0.08 which his basleine is typically 0.04-0.05. Ariana states that he has also had an eeventual year secondary to his bullous emphysema which has resulted in a chest tube and eventually in a chest thoractomy by Dr. Blackwell. He has pain in the Right lower lobe and a WBC of 19.0. Ariana may have pnuemonia. wEw ill followup wih a noncontrst CT of his chest for evlaution of pneumoina. We will admit ot medicine and cardiology has advised for heparin for the troponin.
[2018-04-22] MEDS: Heparin 25,000 UNIT/500 ML D5W 25,000 UNIT/500 ML BAG IVC SCH (16:49)
[2018-04-22] MEDS ORDERED: Levofloxacin 750 MG/150 ML 750 MG/150 ML BAG IVPB ONE (17:09)
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
[2018-04-22] MEDS ORDERED: Naloxone 0.4 MG/ML INJ IVP PRN (19:34)
[2018-04-22] MEDS ORDERED: Acetaminophen 325 MG TABLET PO PRN (19:34)
[2018-04-22] MEDS ORDERED: Nitroglycerin 0.4 MG TAB.SUBL SL PRN (19:35)
[2018-04-22] MEDS: *HR* HYDROcodone/Acet 10/325 mg TABLET PO PRN (20:54)
[2018-04-22] MEDS: Ipratropium/Albuterol Neb 3 ML IH SCH (22:49)
[2018-04-22] MEDS ORDERED: Lactulose Oral Soln 20 GM/30 ML UDC PO PRN (23:10)
[2018-04-23] MEDS: *HR* HYDROcodone/Acet 10/325 mg TABLET PO PRN ×2 (02:26→06:30)
[2018-04-23] MEDS: Ipratropium/Albuterol Neb 3 ML IH SCH ×4 (03:54→21:38)
[2018-04-23 04:33] LABS: Hematocrit 35.3 % (37.5-50.1); Hemoglobin 10.8 g/dL (12.9-16.9); Mean Corpuscular HGB Conc 30.6 g/dL (31.6-35.5); Mean Corpuscular Volume 85.1 fL (83.0-100.0); Mean Platelet Volume 10.6 fL (9.4-12.4); Platelet Count 186 K/mcL (140-400); Red Blood Count 4.15 M/mcL (4.19-5.50); Red Cell Distribution Width 17.2 % (11.5-14.5)
[2018-04-23 04:52] LABS: BUN/Creatinine Ratio 23 (6-26); Blood Urea Nitrogen 23 mg/dL (8-23); Carbon Dioxide 24 mEq/L (23-29); Chloride 106 mEq/L (98-107); Glucose 80 mg/dL (70-105); Osmolality,Calculated 291 (280-300); Potassium 4.4 mEq/L (3.5-5.1); Sodium 139 mEq/L (136-145); eGFR For African Americans > 60 (> 60); eGFR For Non-African Americans > 60 (> 60)
[2018-04-23 05:01] LABS: Lymphocytes # 1.1 K/mcL (0.6-4.6); Neutrophils # 17.7 K/mcL (1.6-8.9)
[2018-04-23 05:02] LABS: Hypersegmented Neutrophils Present (Not Present); Platelet Estimate Normal (Normal)
[2018-04-23] MEDS: *HR* Heparin 5,000 UNIT/ML VIAL IVP PRN ×2 (07:14→21:42)
[2018-04-23] MEDS ORDERED: *HR* HYDROcodone/Acet 10/325 mg TABLET PO PRN (08:02)
[2018-04-23] MEDS: Lisinopril 20 MG TABLET PO SCH (08:22)
[2018-04-23] MEDS: Aspirin Enteric Coated 81 MG Tablet PO SCH (08:22)
[2018-04-23] MEDS: *HR* Amiodarone 200 MG TABLET PO SCH (08:23)
[2018-04-23] MEDS: Furosemide 40 MG TABLET PO SCH (08:23)
[2018-04-23] MEDS ORDERED: Naloxone 0.4 MG/ML INJ IVP PRN (10:16)
--- NOTE | 2018-04-23 10:31 | Cardiology Consult Note ---
<Ivett Stroud - Last Filed: 04/23/18 10:45> Date of Encounter: 04/23/18 Time of Encounter: 09:30 Assessment and Plan (1) Chest pain Current Visit: Yes Status: Chronic Per cardiology: -Reports right sided chest pain, states has been chronic since November after thoracotomy. -However, reports chest pain worsened past 3 weeks. -Denies exertional symptoms. -Denies Anginal equivalent (indigestion, burning pain). -Troponins mildly elevated. -Currently on heparin drip, asa, statin, BB. -ECG with SB, lateral ST depression noted. -Discussed and reviewed with , will check limited echo. Can repeat stress in am. -Will continue to monitor. Qualifiers: Chest pain type: unspecified Qualified Code(s): R07.9 - Chest pain, unspecified (2) Elevated troponin Current Visit: Yes Status: Chronic Per cardiology: -Troponins 0.08, 0.07, 0.07. Troponins chronically elevated. -Denies anginal symptoms. -Reports atypical right sided chest pain. -Known history of CAD s/p CABG 2013. -01/2018 stress test negative for ischemia or infarct, unable to rule out inferior ischemia due to diaphragmatic uptake. -01/2018 TTE with LVEF 55-60%, no segmental wall motion abnormalities. -ECG with SB, HR 59, lateral ST depression noted. -Per discussion with , will repeat limited echo. Will repeat stress test in am due to previous stress with unable to rule out inferior ischemia due to diaphragmatic uptake and with new ST depression lateral lead. (3) CAD (coronary artery disease) Current Visit: No Status: Chronic Per cardiology: -Known history of CAD s/p CABG 2013. -On asa, statin, BB, currently on heparin drip. -PLan for echo and stress in am. Qualifiers: Coronary Disease-Associated Artery/Lesion type: [place] artery [place] vs. transplanted heart: [place] heart Associated angina: without angina Qualified Code(s): I25.10 - Atherosclerotic heart disease of [place] coronary artery without angina pectoris Discussion w patient/family: The assessment and plan as outlined above was discussed with the patient and/or family members who expressed understanding and agreement. All questions were answered. Thank you for involving us in the care of your patient. Please call with any questions. Discussed and reviewed with . History of Present Illness Consult date: 04/22/18 Requesting physician: Osmar Carias Consult reason: chest pain Chief complaint: chest pain History of present illness: Mr. Johnson is a 63 year old male with a relevant past medical history of CAD s /p CABG 2013, HTN, COPD, a.fib, epigatric hernia, recurrent pneumothorax with thoracotomy who presented to [facility] with complaints of right sided chest pain. Patient reports this right sided chest pain has been chronic since November after thoracotomy. Patient states for the past 3 weeks, chest pain has been worse. Patient states pain is right sided, non-radiating. Denies aggravating or alleviating symptoms. Denies exertional symptoms. Reports anginal equivalent of "indigestion, burning pain." Denies anginal equivalent. Past Med Surg Social Fam HX - Past Medical History Attestation: Yes The following information was validated with the patient. Source: patient, old records reviewed, obtained from family Medical history: asthma, atrial fibrillation, cardiomyopathy, CHF, COPD, coronary artery disease, hyperlipidemia, hypertension, myocardial infarction Additional medical history: emphysema Psychiatric history: anxiety - Past Surgical History Surgical History: coronary bypass (CABG), herniorrhaphy, IVC Filter, other ( Right thoracotomy with multiple bleb resections) Additional surgical history: THORACOTOMY - Social History Smoking Status: Former smoker Smokeless Tobacco Status: No Alcohol use: none Drug use: none - Family History Brother Hx Family Cardiac Disorders: Yes (AR) Mother Living Status: Hx Family Cardiac Disorders: No Hx Family Respiratory Disorders: No Hx Family Cancer: No Hx Family GI Disorders: No Hx Family Endocrine Disorder: No Hx Family Neuromuscular Disorders: No Hx Family Neurologic Disorders: No Hx Family HEENT Disorders: No Hx Family Autoimmune Disorders: No Father Living Status: Hx Family Cardiac Disorders: No Hx Family Respiratory Disorders: No Hx Family Cancer: No Hx Family GI Disorders: No Hx Family Endocrine Disorder: No Hx Family Neuromuscular Disorders: No Hx Family Neurologic Disorders: No Hx Family HEENT Disorders: No Hx Family Autoimmune Disorders: No Medications and Allergies Atorvastatin Calcium [Lipitor] 80 mg PO HS 02/02/16 [History] Nitroglycerin [Nitrostat] 0.4 mg SL Q5M PRN 07/30/16 [History] Amiodarone [Cordarone] 200 mg PO DAILY 04/22/17 [History] Metoprolol [Lopressor] 12.5 mg PO BID 10/05/17 [History] Lactulose 20 gm PO DAILY PRN #30 udc 11/01/17 [Rx] Furosemide [Lasix] 40 mg PO DAILY 11/06/17 [History] Apixaban [Eliquis] 5 mg PO BID 11/11/17 [History] Potassium Chloride 20 meq PO DAILY #14 tab.er.prt 11/28/17 [Rx] Albuterol Sulfate [Albuterol Inhaler] 2 puff IH Q6H PRN 01/31/18 [History] HYDROcodone/Acet 10/325 mg [Tinnie 10-325 mg] 1 tab PO Q6H PRN 01/31/18 [History] Lisinopril [Zestril] 20 mg PO DAILY 01/31/18 [History] Aspirin [Adult Aspirin Regimen] 81 mg PO DAILY 04/22/18 [History] Calcium Polycarbophil [Fibercon] 625 mg PO BID 04/22/18 [History] 3 Allergy/AdvReac Type Severity Reaction Status Date / Time No Known Allergies Allergy Verified 01/31/18 10:56 All Systems Review: The remainder of the systems were reviewed and are negative - Cardiovascular Cardiovascular: as per HPI, chest pain at rest Physical Examination Vital Signs, Last 4 Hours Temp Pulse Resp BP Pulse Ox 04/23/18 07:40 98.9 F 61 18 119/67 98 General: Conversant, No Apparent Distress HEENT: Atraumatic, Normocephaly, Mucus Membranes Moist Neck: No JVD, Normal carotid pulses Cardiac: Reg Rate and Rhythm, Normal S1 and S2, No Murmur Lungs: Other (Lung sounds diminished throughout. ) Neuro: Alert and responsive, No focal deficits noted Abdomen: Soft, Non-Tender Skin: No rashes noted on visualized skin Musculoskeletal: No Chest Wall Tenderness Extremities: No Clubbing, No Cyanosis, No Edema, Normal Pulses Results 04/23/18 03:28 04/23/18 03:28 Lab Results Impressions Chest X-Ray 04/22/18 14:55 IMPRESSION: 1. No active pulmonary disease. 2. COPD. D/ / Alberto Graham MD / Alberto Graham MD Interpreting Provider: Alberto Graham MD Chest CT 04/22/18 16:18 IMPRESSION: 1. Multifocal areas of scarring as well as emphysematous change identified throughout the lung parenchyma; however, no obvious acute process. 2. Fibrotic change in the lateral basal right lower lobe. 3. Small vessel airway thickening in the right lower lobe also identified, which could represent infectious or inflammatory bronchiolitis. 4. Multifocal old rib fractures on the left side, and healing rib fractures on the right. D/ / Azar Shukla / Azar Shukla Interpreting Provider: Azar Shukla Active Medications Acetaminophen (Tylenol) 650 mg PO Q6HR PRN PRN Reason: Mild Pain/Fever Stop: 10/22/18 19:35 Hydrocodone Bitart/Acetaminophen (Tinnie 10-325 Mg) 1 each PO Q4H PRN PRN Reason: Moderate to Severe Pain Stop: 10/22/18 20:40 Last Admin: 04/23/18 10:25 Dose: 1 each Albuterol/Ipratropium (Duoneb) 3 ml IH [id number] JERMAINE Stop: 10/22/18 22:01 Last Admin: 04/23/18 10:18 Dose: 3 ml Amiodarone HCl (Cordarone) 200 mg PO DAILY JERMAINE Stop: 10/23/18 09:01 Last Admin: 04/23/18 08:23 Dose: 200 mg Aspirin (Aspirin Ec) 81 mg PO DAILY JERMAINE Stop: 10/23/18 09:01 Last Admin: 04/23/18 08:22 Dose: 81 mg Atorvastatin Calcium (Lipitor) 80 mg PO HS JERMAINE Stop: 10/22/18 21:01 Last Admin: 04/22/18 20:55 Dose: 80 mg Calcium Polycarbophil (Fibercon) 625 mg PO BID JERMAINE Stop: 10/22/18 21:01 Last Admin: 04/23/18 08:22 Dose: 625 mg Furosemide (Lasix) 40 mg PO DAILY JERAMINE Stop: 10/23/18 09:01 Last Admin: 04/23/18 08:23 Dose: 40 mg Heparin Sodium (Porcine) (Heparin) 4,000 unit IVP Q6HR PRN PRN Reason: SEE COMMENTS Stop: 10/22/18 16:21 Heparin Sodium (Porcine) (Heparin) 2,000 unit IVP Q6H PRN PRN Reason: SEE COMMENTS Stop: 10/22/18 16:21 Last Admin: 04/23/18 07:14 Dose: 2,000 unit Heparin Sodium/Dextrose (Heparin 25,000 Unit/500 Ml D5w) 25,000 unit in 500 mls @ 20.031 mls/hr IVC .Q24H JERMAINE; 12 UNIT/KG/HR PRN Reason: Protocol Stop: 10/22/18 16:31 Last Titration: 04/23/18 07:12 Dose: 13.77 unit/kg/hr, 23 mls/hr Levofloxacin/Dextrose (Levaquin Premix 750mg/150 Ml) 750 mg in 150 mls @ 100 mls/hr IVPB QPM JERMAINE PRN Reason: Protocol Stop: 10/23/18 18:01 Lactulose (Lactulose) 20 gm PO DAILY PRN PRN Reason: Constipation Stop: 10/22/18 23:11 Lisinopril (Zestril) 20 mg PO DAILY JERMAINE PRN Reason: Protocol Stop: 10/23/18 09:01 Last Admin: 04/23/18 08:22 Dose: 20 mg Metoprolol Tartrate (Lopressor) 12.5 mg PO BID JERMAINE Stop: 10/22/18 21:01 Last Admin: 04/23/18 08:22 Dose: 12.5 mg Naloxone HCl (Narcan) 0.4 mg IVP Q2MIN PRN PRN Reason: SEE COMMENTS Stop: 10/23/18 10:17 Nitroglycerin (Nitroglycerin) 0.4 mg SL Q5MIN PRN PRN Reason: Chest Pain Stop: 10/22/18 14:59 Last Admin: 04/22/18 15:31 Dose: 0.4 mg Laboratory Tests 04/22/18 04/22/18 04/22/18 15:18 15:18 21:11 WBC 19.5 H Hgb 12.0 L Creatinine Troponin I 0.08 H* 0.07 H* 04/23/18 04/23/18 04/23/18 03:28 03:28 03:28 WBC 18.8 H Hgb 10.8 L Creatinine 1.02 Troponin I 0.07 H* - Imaging and Cardiology Chest Xray: report reviewed Stress Test: report reviewed Echo: report reviewed Cardiac cath: report reviewed - EKG Interpretation EKG results cardiology: personally reviewed (ECG with SB, lateral ST depression noted. HR 59.), other (Telemetry reviewed with average HR previous 12 hours noted to be 65, SR. PVCs and PACs noted.) Consult Discharge Plan - Plan Referrals: Siria Whitehead, [employer] [Primary Care Provider] - (web request sent on 04/23/18) <Davida Marie - Last Filed: 04/23/18 13:08> Date of Encounter: 04/23/18 - Attending Attestation I have personally performed a face to face evaluation on this patient. I have reviewed and agree with the care plan. History and Exam by me shows: 63-year-old male status post thoracotomy for hemothorax in the past and known coronary artery disease status post CABG in 2013 presents with atypical chest pain and mild flat adynamic troponin elevation. On review of his EKG he does have lateral ST depressions which are new. For that reason we will evaluate for ischemia with a chemical stress test. Assessment and Plan Discussion w patient/family: The assessment and plan as outlined above was discussed with the patient and/or family members who expressed understanding and agreement. All questions were answered. Thank you for involving us in the care of your patient. Please call with any questions. History of Present Illness History of present illness: Mr. Johnson is a 63 year old male All Systems Review: The remainder of the systems were reviewed and are negative Physical Examination Vital Signs, Last 4 Hours Temp Pulse Resp BP Pulse Ox 04/23/18 12:01 99.0 F 60 18 115/73 95 04/23/18 10:18 16 97 Results 04/23/18 03:28 04/23/18 03:28 Lab Results 04/22/18 04/22/18 04/23/18 21:11 22:25 03:28 WBC Hgb Hct Plt Count APTT 66.4 H D Sodium Potassium Chloride Carbon Dioxide BUN Creatinine Glucose Calcium Magnesium Troponin I 0.07 H* 0.07 H* 04/23/18 04/23/18 04/23/18 03:28 03:28 06:14 WBC 18.8 H Hgb 10.8 L Hct 35.3 L Plt Count 186 APTT 51.9 H Sodium 139 Potassium 4.4 Chloride 106 Carbon Dioxide 24 BUN 23 Creatinine 1.02 Glucose 80 Calcium 9.0 Magnesium 2.0 Troponin I
[2018-04-23] MEDS: *HR* OxyCODONE/APAP 10/325 TABLET PO PRN ×3 (13:11→21:28)
[2018-04-23] MEDS: Heparin 25,000 UNIT/500 ML D5W 25,000 UNIT/500 ML BAG IVC SCH (15:18)
--- NOTE | 2018-04-23 16:08 | Internal Med Progress Note ---
Date of Encounter: 04/23/18 Time of Encounter: 11:10 - Assessment and plan (1) Bronchiolitis Current Visit: Yes Status: Acute Assessment and plan: CT chest shows multifocal areas of scarring and emphysematous changes throughout the lung parenchyma, no acute process. Possible right lower lobe bronchiolitis. Continue IV Levaquin. Patient has been on outpatient steroids for the last 2 weeks, which is the probable reason for leukocytosis. (2) Chest pain Current Visit: Yes Status: Acute Assessment and plan: Acute on chronic right-sided chest pain related to previous thoracotomy. Continue telemetry monitoring. Serial troponins flat and adynamic, at around 0.07. Cardiology consult appreciated-patient is noted to have EKG changes along with ongoing chest pain, previous nuclear stress test could not be interpreted appropriately. Recommend repeating Limited echocardiogram and nuclear stress test in a.m. Continue antiplatelet coagulation with IV heparin drip, continue aspirin, statin, beta rickie. Pain control with when necessary oxycodone. Qualifiers: Chest pain type: unspecified Qualified Code(s): R07.9 - Chest pain, unspecified (3) Hypertension Current Visit: Yes Status: Chronic Qualifiers: Hypertension type: essential hypertension Qualified Code(s): I10 - Essential (primary) hypertension (4) CAD (coronary artery disease) Current Visit: Yes Status: Chronic Assessment and plan: Plan as above; Qualifiers: Coronary Disease-Associated Artery/Lesion type: [place] artery [place] vs. transplanted heart: [place] heart Associated angina: without angina Qualified Code(s): I25.10 - Atherosclerotic heart disease of [place] coronary artery without angina pectoris (5) COPD (chronic obstructive pulmonary disease) Current Visit: Yes Status: Chronic Assessment and plan: Does not appear to be in acute exacerbation. Continue when necessary breathing treatments, supplemental oxygen, inhaled corticosteroids, when necessary antitussives. Qualifiers: COPD type: emphysema Emphysema type: unspecified Qualified Code(s): J43.9 - Emphysema, unspecified (6) Atrial fibrillation Current Visit: Yes Status: Chronic Assessment and plan: Currently rate controlled. Continue beta rickie. Noted to be on long-term anticoagulation with Xarelto, which is currently held due to being on IV heparin. Qualifiers: Atrial fibrillation type: chronic Qualified Code(s): I48.2 - Chronic atrial fibrillation (7) HLD (hyperlipidemia) Current Visit: Yes Status: Chronic Qualifiers: Hyperlipidemia type: unspecified Qualified Code(s): E78.5 - Hyperlipidemia , unspecified (8) Chronic respiratory failure Current Visit: Yes Status: Chronic Assessment and plan: Noted to be on home oxygen due to underlying COPD. Qualifiers: Respiratory failure complication: hypoxia Qualified Code(s): J96.11 - Chronic respiratory failure with hypoxia - Time Spent With Patient Total time spent is greater than 50% in coordination of care (as documented) at patient's floor/unit and/or counseling patient: - Subjective Interval history: Continues to report moderate to severe dull right-sided chest pain, nonradiating. Patient reports chest pain has got worse in the last 2 weeks. Also reports associated productive cough with yellowish mucus thick. No fever, chills, shortness of breath, wheezing. - Constitutional Vitals: Temp Pulse Resp BP Pulse Ox 99.0 F 60 18 115/73 95 04/23/18 12:01 04/23/18 12:01 04/23/18 12:01 04/23/18 12:01 04/23/18 12:01 General appearance: Present: mild distress, A&O X 3, answers questions appropriately - Respiratory Respiratory exam: Present: CTAB (coarse breath sounds B/L, intermittent rhonchi) . Absent: accessory muscle use, rales, rhonchi, wheezes - Cardiovascular Cardiovascular exam: Present: irregular rhythm, +S1, +S2. Absent: diastolic murmur, gallop, rubs, systolic murmur - GI/Abdominal GI/Abdominal exam: Present: normal bowel sounds, soft, no peritoneal signs. Absent: distended, tenderness - Extremities Exam Extremities exam: Present: full ROM, warm, radial pulses palpable and symmetrical. Absent: calf tenderness, cyanotic, pedal edema - Neurological Exam Neurological exam: Present: CN II-XII intact, oriented X3, no focal deficits. Absent: pronater drift, facial droop, speech deficit Internal Medicine: Result - Labs CBC & Chem 7: 04/23/18 03:28 04/23/18 03:28 Labs: Short CBC 04/23/18 Range/Units 03:28 WBC 18.8 H (4.3-11.1) K/mcL Hgb 10.8 L (12.9-16.9) g/dL Hct 35.3 L (37.5-50.1) % Plt Count 186 (140-400) K/mcL Neutrophils # 17.7 H (1.6-8.9) K/mcL BMP 04/23/18 03:28 Sodium 139 Potassium 4.4 Chloride 106 Carbon Dioxide 24 BUN 23 Creatinine 1.02 Glucose 80 Calcium 9.0 Cardiac Enzymes 04/22/18 04/23/18 Range/Units 21:11 03:28 Troponin I 0.07 H* 0.07 H* (< 0.04) ng/mL - ABG Interpretation ABG results: PT/INR, D-dimer PT 15.3 Seconds (9.4-12.1) H 04/22/18 15:18 D-Dimer 370 ng/mLFEU (0-500) 04/22/18 15:18 Consult Discharge Plan - Plan Referrals: Siria Whitehead, PROFESSOR OF THEATER [Primary Care Provider] - (web request sent on 04/23/18)
[2018-04-23] MEDS ORDERED: Levofloxacin 750 MG/150 ML 750 MG/150 ML BAG IVPB SCH (18:00)
--- NOTE | 2018-04-23 18:20 | Electrocardiograph Report ---
[place] [address] Test Date: 2018-04-22 Pat Name: Jaylen Johnson Department: 104 Room: 2A37 Gender: Tour Coordinator: TYRON : 1955 Requested By: Azeb Morel Order Number: [id number] Reading MD: Juve Hassan Measurements Intervals [place] Rate: 59 P: 22 PA: 151 QRS: 77 QRSD: 90 T: 62 QT: 408 QTc: 408 Interpretive Statements SINUS BRADYCARDIA LEFT VENTRICULAR HYPERTROPHY AND ST-T CHANGE Electronically Signed On 04-23-2018 18:19:20 EDT by Juve Hassan
[2018-04-24] MEDS: *HR* OxyCODONE/APAP 10/325 TABLET PO PRN ×4 (02:26→15:18)
[2018-04-24 04:12] LABS: Basophils % 0.2 %; Eosinophils # 0.2 K/mcL (0.0-0.6); Eosinophils % 1.2 %; Hematocrit 33.1 % (37.5-50.1); Hemoglobin 10.4 g/dL (12.9-16.9); Immature Granulocytes % 0.3 % (0-4); Lymphocytes # 1.8 K/mcL (0.6-4.6); Lymphocytes % 11.8 %; Mean Corpuscular HGB Conc 31.4 g/dL (31.6-35.5); Mean Corpuscular Hemoglobin 26.3 pg (28.0-33.3); Mean Corpuscular Volume 83.8 fL (83.0-100.0); Mean Platelet Volume 10.5 fL (9.4-12.4); Monocytes # 0.8 K/mcL (0.0-1.3); Monocytes % 5.1 %; Neutrophils # 12.2 K/mcL (1.6-8.9); Platelet Count 193 K/mcL (140-400); Red Blood Count 3.95 M/mcL (4.19-5.50); Red Cell Distribution Width 17.1 % (11.5-14.5); Segmented Neutrophils % 81.4 %
[2018-04-24] MEDS: Ipratropium/Albuterol Neb 3 ML IH SCH ×2 (04:22→11:05)
[2018-04-24 04:28] LABS: BUN/Creatinine Ratio 22 (6-26); Blood Urea Nitrogen 20 mg/dL (8-23); Carbon Dioxide 25 mEq/L (23-29); Chloride 105 mEq/L (98-107); Glucose 95 mg/dL (70-105); Osmolality,Calculated 290 (280-300); Potassium 4.1 mEq/L (3.5-5.1); Sodium 139 mEq/L (136-145); eGFR For African Americans > 60 (> 60); eGFR For Non-African Americans > 60 (> 60)
[2018-04-24] MEDS ORDERED: Regadenoson 0.4 MG/5 ML SYRINGE IVP ONE (05:50)
[2018-04-24] MEDS: Aspirin Enteric Coated 81 MG Tablet PO SCH (09:01)
[2018-04-24] MEDS: Lisinopril 20 MG TABLET PO SCH (09:01)
[2018-04-24] MEDS: Furosemide 40 MG TABLET PO SCH (09:01)
[2018-04-24] MEDS: *HR* Amiodarone 200 MG TABLET PO SCH (09:01)
[2018-04-24 10:57] VITALS: BP 95/59
--- NOTE | 2018-04-24 11:27 | Cardiology Progress Note ---
Date of Encounter: 04/24/18 Time of Encounter: 07:30 Assessment and Plan (1) Chest pain Current Visit: Yes Status: Acute Per cardiology: -Reports right sided chest pain, states has been chronic since November after thoracotomy. -However, reports chest pain worsened past 3 weeks. -Denies exertional symptoms. -Denies Anginal equivalent (indigestion, burning pain). -Troponins mildly elevated. -Currently on heparin drip, asa, statin, BB. -ECG with SB, lateral ST depression noted. -TTE with LVEF 55-60%, no segmental wall motion abnormalities. -Stress test pending without evidence of ischemia in visualized ontiveros. -Discussed and reviewed with , cardiology will sign off and will follow in outpatient setting. -OK from cardiac standpoint to stop heparin drip and resume eliquis. Qualifiers: Chest pain type: unspecified Qualified Code(s): R07.9 - Chest pain, unspecified (2) Elevated troponin Current Visit: Yes Status: Chronic Per cardiology: -Troponins 0.08, 0.07, 0.07. Troponins chronically elevated. -Denies anginal symptoms. -Reports atypical right sided chest pain. -Known history of CAD s/p CABG 2013. -01/2018 stress test negative for ischemia or infarct, unable to rule out inferior ischemia due to diaphragmatic uptake. -01/2018 TTE with LVEF 55-60%, no segmental wall motion abnormalities. -ECG with SB, HR 59, lateral ST depression noted. -Do not suspect NSTEMI. Troponins chronically elevated. No cardiac rehab consult warranted. (3) CAD (coronary artery disease) Current Visit: Yes Status: Chronic Per cardiology: -Known history of CAD s/p CABG 2013. -On asa, statin, BB. -known history of PAF. On BB, and eliquis for anticoagulation in outpatient setting. Qualifiers: Coronary Disease-Associated Artery/Lesion type: [place] artery [place] vs. transplanted heart: [place] heart Associated angina: without angina Qualified Code(s): I25.10 - Atherosclerotic heart disease of [place] coronary artery without angina pectoris Discussion w patient/family: The assessment and plan as outlined above was discussed with the patient and/or family members who expressed understanding and agreement. All questions were answered. Thank you for involving us in the care of your patient. Please call with any questions. Discussed and reviewed with . Subjective Principal diagnosis: chest pain Interval history: Patient seen and examined during stress test this am. Patient reports no change in his chest pain. Objective Vital Signs, Last 4 Hours Temp Pulse Resp BP Pulse Ox 04/24/18 11:05 16 95 04/24/18 10:56 99.0 F 56 16 95/59 95 04/24/18 09:04 92 General: Conversant, No Apparent Distress HEENT: Atraumatic, Normocephaly, Mucus Membranes Moist Neck: No JVD, Normal carotid pulses Cardiac: Reg Rate and Rhythm, Normal S1 and S2, No Murmur Lungs: Other (Lung sounds diminished throughout. ) Neuro: Alert and responsive, No focal deficits noted Abdomen: Soft, Non-Tender Skin: No rashes noted on visualized skin Musculoskeletal: No Chest Wall Tenderness Extremities: No Clubbing, No Cyanosis, No Edema, Normal Pulses Results 04/24/18 03:33 04/24/18 03:33 Lab Results Impressions Echocardiogram Limited Views 04/23/18 10:20 Impressions: LVEF 55-60%. Normal LV chamber size, wall thickness and function. Atypical septal motion consistent with post-operative status. Left Ventricular Wall Motion: Rest Echo Findings All wall segments showed normal motion. Findings: Study Quality * Technically adequate exam. ECG Findings * Sinus rhythm with PACs. Left Ventricle * LVEF 55-60%. * Normal LV chamber size, wall thickness and function. * Atypical septal motion consistent with post-operative status. Right Ventricle * Normal right ventricular structure and function. Aorta * Normally sized aortic root. Pericardium * The pericardium appears normal. IVC * Normal IVC dimensions and inspiratory collapse. Active Medications Acetaminophen (Tylenol) 650 mg PO Q6HR PRN PRN Reason: Mild Pain/Fever Stop: 10/22/18 19:35 Albuterol/Ipratropium (Duoneb) 3 ml IH [id number] [facility] Stop: 10/22/18 22:01 Last Admin: 04/24/18 11:05 Dose: 3 ml Amiodarone HCl (Cordarone) 200 mg PO DAILY [facility] Stop: 10/23/18 09:01 Last Admin: 04/24/18 09:01 Dose: 200 mg Aspirin (Aspirin Ec) 81 mg PO DAILY JERMAINE Stop: 10/23/18 09:01 Last Admin: 06/13/18 09:01 Dose: 81 mg Atorvastatin Calcium (Lipitor) 80 mg PO HS JERMAINE Stop: 10/22/18 21:01 Last Admin: 04/23/18 21:28 Dose: 80 mg Calcium Polycarbophil (Fibercon) 625 mg PO BID JERMAINE Stop: 10/22/18 21:01 Last Admin: 04/24/18 09:01 Dose: 625 mg Furosemide (Lasix) 40 mg PO DAILY JERMAINE Stop: 10/23/18 09:01 Last Admin: 04/24/18 09:01 Dose: 40 mg Heparin Sodium (Porcine) (Heparin) 4,000 unit IVP Q6HR PRN PRN Reason: SEE COMMENTS Stop: 10/22/18 16:21 Heparin Sodium (Porcine) (Heparin) 2,000 unit IVP Q6H PRN PRN Reason: SEE COMMENTS Stop: 10/22/18 16:21 Last Admin: 04/23/18 21:42 Dose: 2,000 unit Heparin Sodium/Dextrose (Heparin 25,000 Unit/500 Ml D5w) 25,000 unit in 500 mls @ 20.031 mls/hr IVC .Q24H JERMAINE; 12 UNIT/KG/HR PRN Reason: Protocol Stop: 10/22/18 16:31 Last Titration: 04/24/18 10:45 Dose: 15.57 unit/kg/hr, 26 mls/hr Levofloxacin/Dextrose (Levaquin Premix 750mg/150 Ml) 750 mg in 150 mls @ 100 mls/hr IVPB QPM JERMAINE PRN Reason: Protocol Stop: 10/23/18 18:01 Last Infusion: 04/23/18 21:29 Dose: Infused Lactulose (Lactulose) 20 gm PO DAILY PRN PRN Reason: Constipation Stop: 10/22/18 23:11 Lisinopril (Zestril) 20 mg PO DAILY JERMAINE PRN Reason: Protocol Stop: 10/23/18 09:01 Last Admin: 04/24/18 09:01 Dose: 20 mg Metoprolol Tartrate (Lopressor) 12.5 mg PO BID JERMAINE Stop: 10/22/18 21:01 Last Admin: 04/24/18 09:01 Dose: 12.5 mg Naloxone HCl (Narcan) 0.4 mg IVP Q2MIN PRN PRN Reason: SEE COMMENTS Stop: 10/23/18 10:17 Nitroglycerin (Nitroglycerin) 0.4 mg SL Q5MIN PRN PRN Reason: Chest Pain Stop: 10/22/18 14:59 Last Admin: 04/22/18 15:31 Dose: 0.4 mg Oxycodone/Acetaminophen (Percocet 10/325) 1 each PO Q4HR PRN PRN Reason: Moderate to Severe Pain Stop: 10/23/18 12:26 Last Admin: 04/24/18 11:20 Dose: 1 each Laboratory Tests 04/24/18 04/24/18 03:33 03:33 WBC 15.0 H Hgb 10.4 L Creatinine 0.92 - Imaging and Cardiology Chest Xray: report reviewed Stress Test: report reviewed Echo: report reviewed Cardiac cath: report reviewed - EKG Interpretation EKG results cardiology: other (Telemetry reviewed with average HR previous 12 hours noted to be 66, SR. PVCs and PACs noted.) Consult Discharge Plan - Plan Referrals: Siria Whitehead CNP [Primary Care Provider] - 04/26/18 2:00 pm ()
[2018-04-24] MEDS: Heparin 25,000 UNIT/500 ML D5W 25,000 UNIT/500 ML BAG IVC SCH (12:26)
--- NOTE | 2018-04-24 14:44 | Discharge Summary ---
- NOTES TO OUTPATIENT PROVIDER Notes to Outpatient Provider: Chest pain, likely chronic and musculoskeletal; had normal Echo and nuclear stress testing; Orders not resulted at time of discharge: Pending orders 04/24/18 06:00 NM roshni perf SPECT multi [NM] Routine 04/25/18 09:30 PTT [Activated Partial Thrombo Time] [COAG] Routine Date of Encounter: 04/24/18 Time of Encounter: 14:42 - Discharge Diagnosis (1) Bronchiolitis Priority: Primary Status: Acute (2) Chest pain Priority: Primary Status: Acute Qualifiers: Chest pain type: unspecified Qualified Code(s): R07.9 - Chest pain, unspecified (3) Hypertension Priority: Secondary Status: Chronic Qualifiers: Hypertension type: essential hypertension Qualified Code(s): I10 - Essential (primary) hypertension (4) CAD (coronary artery disease) Priority: Secondary Status: Chronic Qualifiers: Coronary Disease-Associated Artery/Lesion type: [place] artery [place] vs. transplanted heart: [place] heart Associated angina: without angina Qualified Code(s): I25.10 - Atherosclerotic heart disease of [place] coronary artery without angina pectoris (5) COPD (chronic obstructive pulmonary disease) Priority: Secondary Status: Chronic Qualifiers: COPD type: emphysema Emphysema type: unspecified Qualified Code(s): J43.9 - Emphysema, unspecified (6) Atrial fibrillation Priority: Secondary Status: Chronic Qualifiers: Atrial fibrillation type: chronic Qualified Code(s): I48.2 - Chronic atrial fibrillation (7) HLD (hyperlipidemia) Priority: Secondary Status: Chronic Qualifiers: Hyperlipidemia type: unspecified Qualified Code(s): E78.5 - Hyperlipidemia , unspecified (8) Chronic respiratory failure Priority: Secondary Status: Chronic Qualifiers: Respiratory failure complication: hypoxia Qualified Code(s): J96.11 - Chronic respiratory failure with hypoxia Hospital course: Mr. Johnson is a 63 year old male with the above medical problems, admitted with right-sided chest pain and dyspnea. He was noted to have acute on chronic chest pain related to previous thoracotomy, which was subsequently well controlled with pain medications. Initial EKG showed mild history depression in lateral leads along with mild troponin leak. He was started on anticoagulation with IV heparin drip per cardiology recommendations. Serial troponins were flat and adynamic. Limited echocardiogram showed preserved ejection fraction. Nuclear stress test was done which was negative for acute ischemia or infarct. CT chest in the emergency room showed multifocal areas of scarring and emphysema , small vessel AV thickening in the right lower lobe probably bronchiolitis. Patient was started on IV antibiotics. He symptoms improved at this time and he is medically stable for discharge. He is noted to have mild leukocytosis, probably steroid-induced, currently improving. Discharge discussed with: patient, family, nurse - Time Spent with Patient Total time spent providing and/or coordinating discharge services: Greater than 30 minutes (40 min) - Discharge Medications Prescriptions: levoFLOXacin [Levaquin] 500 mg PO DAILY #3 tablet Home Medications: Atorvastatin Calcium [Lipitor] 80 mg PO HS 02/02/16 [History] Nitroglycerin [Nitrostat] 0.4 mg SL Q5M PRN 07/30/16 [History] Amiodarone [Cordarone] 200 mg PO DAILY 04/22/17 [History] Metoprolol [Lopressor] 12.5 mg PO BID 10/05/17 [History] Lactulose 20 gm PO DAILY PRN #30 udc 11/01/17 [Rx] Furosemide [Lasix] 40 mg PO DAILY 11/06/17 [History] Apixaban [Eliquis] 5 mg PO BID 11/11/17 [History] Potassium Chloride 20 meq PO DAILY #14 tab.er.prt 11/28/17 [Rx] Albuterol Sulfate [Albuterol Inhaler] 2 puff IH Q6H PRN 01/31/18 [History] HYDROcodone/Acet 10/325 mg [[place] 10-325 mg] 1 tab PO Q6H PRN 01/31/18 [History] Lisinopril [Zestril] 20 mg PO DAILY 01/31/18 [History] Aspirin [Adult Aspirin Regimen] 81 mg PO DAILY 04/22/18 [History] Calcium Polycarbophil [Fibercon] 625 mg PO BID 04/22/18 [History] levoFLOXacin [Levaquin] 500 mg PO DAILY #3 tablet 04/24/18 [Rx] Allergies/Adverse Reactions: 3 Allergy/AdvReac Type Severity Reaction Status Date / Time No Known Allergies Allergy Verified 01/31/18 10:56 Date of admission: 04/22/18 17:56 Primary care physician: Siria Whitehead CNP Discharging clinician: Gosia C Kavuluri Anticipated date of discharge: 04/24/18 - Constitutional Vitals: Temp Pulse Resp BP Pulse Ox 99.0 F 56 16 95/59 95 04/24/18 10:56 04/24/18 10:56 04/24/18 11:05 04/24/18 10:56 04/24/18 11:05 General appearance: Present: A&O X 3, answers questions appropriately - Cardiovascular Cardiovascular exam: Present: irregular rhythm, +S1, +S2. Absent: diastolic murmur, gallop, rubs, systolic murmur - Patient Status Disposition: Home, Self-Care Condition: Good Functional capacity at discharge: independent ambulation Overall status at discharge: patient is progressing back to baseline - Discharge Instructions Instructions: Heart Failure (DC), Atrial Flutter (DC), Atrial Fibrillation (DC) , Chest Pain (DC), Acute Respiratory Distress Syndrome (DC), Urinary Tract Infection in Men (DC), Peripheral Vascular Disorders (DC), Chronic Obstructive Pulmonary Disease (DC), Sepsis (DC), Chronic Hypertension (DC), Anemia (GEN), Pneumonia (DC) Follow Up With: Siria Whitehead BUS REPAIR SUPERVISOR [Primary Care Provider] - 04/26/18 2:00 pm () Additional Instructions: F/up with Cardiology in 3-4 weeks - Diet and Activity Activity: resume usual activities as tolerated, wear oxygen at all times Diet: low fat, low cholesterol, low salt diet
== END 2018-04-24 15:27 | disposition home or self-care (01) ==
LOC: 2ANU 14:32 → EMEROO 14:32 → 2ANU 19:30 → SUATTDRO 19:33
PROVIDERS: ADMIT Family Medicine; ATTEND Internal Medicine

== ENCOUNTER 2018-11-20 11:59 | Observation (INO) ==
--- NOTE | 2018-11-20 12:10 | Emergency Department Note ---
Disposition Clinical Impression: Atrial fibrillation Qualifiers: Atrial fibrillation type: paroxysmal Qualified Code(s): I48.0 - Paroxysmal atrial fibrillation Disposition: Admitted As Inpatient Condition: Good Forms: ED Satisfaction Letter General Adult HPI - General Chief complaint: ED Arrhythmia/Palpitations Stated complaint: AFIB Time Seen by Provider: 11/20/18 12:05 Source: patient Limitations: no limitations Nursing Notes Reviewed: Yes Vital Signs Reviewed: Yes - History of Present Illness HPI Narrative: Patient is a 63-year-old male with history of paroxysmal A. fib presenting with chest pain, shortness of breath and tachycardia. He states he has been in A. fib for proximally 2 weeks. He was sent from Dr. Marie's office today as he continues in A. fib and they discussed admission for cardioversion. Otherwise the patient states he has right-sided chest pain which is dull and has been constant. Otherwise has a history of emphysema requiring thoracotomy for which he believes this pain stems. Otherwise states he feels lightheaded and slightly dizzy upon walking. Otherwise denies any nausea, vomiting, diarrhea, dysuria, hematuria, abdominal pain he states he is taking eliquis and previously missed a few doses but has not missed any doses in the past week. Pain Scale: 3 - Related Data Home Medications Medication Instructions Recorded Confirmed Atorvastatin Calcium [Lipitor] 80 mg PO HS 02/02/16 04/22/18 Nitroglycerin [Nitrostat] 0.4 mg SL Q5M PRN 07/30/16 04/22/18 Amiodarone [Cordarone] 200 mg PO DAILY 04/22/17 04/22/18 Metoprolol [Lopressor] 12.5 mg PO BID 10/05/17 04/22/18 Furosemide [Lasix] 40 mg PO DAILY 11/06/17 04/22/18 Apixaban [Eliquis] 5 mg PO BID 11/11/17 04/22/18 Albuterol Sulfate [Albuterol 2 puff IH Q6H PRN 01/31/18 04/22/18 Inhaler] HYDROcodone/Acet 10/325 mg [[place] 1 tab PO Q6H PRN 01/31/18 04/22/18 10-325 mg] Lisinopril [Zestril] 20 mg PO DAILY 01/31/18 04/22/18 Aspirin [Adult Aspirin Regimen] 81 mg PO DAILY 04/22/18 04/22/18 Calcium Polycarbophil [Fibercon] 625 mg PO BID 04/22/18 04/22/18 Previous Rx's Medication Instructions Recorded Lactulose 20 gm PO DAILY PRN #30 udc 11/01/17 Potassium Chloride 20 meq PO DAILY #14 tab.er.prt 11/28/17 levoFLOXacin [Levaquin] 500 mg PO DAILY #3 tablet 04/24/18 Metoprolol [Lopressor] 25 mg PO BID #30 tablet 11/13/18 Allergies Allergy/AdvReac Type Severity Reaction Status Date / Time No Known Allergies Allergy Verified 01/31/18 10:56 Constitutional: Denies: fever, chills, weakness Eyes: Denies: eye pain, eye discharge Cardiovascular: Reports: chest pain, palpitations, dyspnea on exertion. Denies: orthopnea, edema, syncope Respiratory: Denies: cough, dyspnea, wheezes, hemoptysis Gastrointestinal: Denies: abdominal pain, nausea, vomiting, diarrhea, constipation, hematemesis Genitourinary: Denies: urgency, dysuria, frequency Musculoskeletal: Denies: back pain, neck pain Integumentary: Denies: rash, abrasion Neurological: Denies: headache, weakness, numbness, paresthesias Psychiatric: Denies: anxiety, depression Endocrine: Denies: fatigue, heat or cold intolerance Hematological/Lymphatic: Denies: easy bleeding, easy bruising Past Medical History - Past Medical History Medical history: Reports: asthma, atrial fibrillation, cardiomyopathy, CHF, COPD, coronary artery disease, hyperlipidemia, hypertension, myocardial infarction Surgical history: Reports: coronary bypass (CABG), herniorrhaphy, IVC Filter, other (Right thoracotomy with multiple bleb resections) Psychiatric history: Reports: anxiety - Social History Smoking Status: Former smoker Smokeless Tobacco Status: No Alcohol use: Reports: none Drug use: Reports: none Physical Exam - General Limitations: no limitations General appearance: alert, in no apparent distress - Head Head exam: atraumatic, normocephalic - Eye Eye exam: Present: normal appearance, PERRL - ENT ENT exam: normal exam, normal oropharynx, mucous membranes moist - Neck Neck exam: Present: normal inspection, full ROM, trachea midline - Chest Chest inspection: Present: normal inspection, symmetric chest wall rise. Absent: tenderness - Respiratory Respiratory exam: Present: normal lung sounds bilaterally. Absent: respiratory distress, wheezes, stridor - Cardiovascular Cardiovascular exam: Present: tachycardia, irregular rhythm, normal heart sounds - Abdominal Exam Abdominal exam: Present: soft, Non-Tender, normal bowel sounds. Absent: distention, guarding, rebound, rigidity - Extremities Exam Extremities exam: Present: normal inspection. Absent: pedal edema - Neurological Exam Neurological exam: Present: alert, oriented X3 - Psychiatric Psychiatric exam: Present: normal affect, normal mood - Skin Skin exam: Present: warm, dry, intact Course Vital Signs Temperature 98.3 F 11/20/18 12:01 Pulse Rate 122 11/20/18 12:01 Respiratory Rate 18 11/20/18 12:01 Blood Pressure 145/101 11/20/18 12:01 O2 Sat by Pulse Oximetry 97 11/20/18 12:01 Temperature 98.3 F 11/20/18 12:01 Pulse Rate 122 11/20/18 12:01 Respiratory Rate 18 11/20/18 12:01 Blood Pressure 145/101 11/20/18 12:01 O2 Sat by Pulse Oximetry 97 11/20/18 12:01 Oxygen Delivery Oxygen Delivery Room Air Medical Decision Making - [facility] Narrative Medical decision making narrative: 63-year-old male with history of paroxysmal A. fib presenting with chest pain, tachycardia and slight shortness of breath. Patient states this feels similar to previous episodes of A. fib. He was seen approximately one week ago for similar symptoms and since that time he has been in A. fib. He was seen at Dr. An's office today who was worried about epigastric pain and given his continuance in atrial fibrillation he will likely be an admission for cardioversion. Laboratory workup including BMP, troponin and EKG. Troponin does show elevation but appears approximately the patient's baseline. Otherwise EKG consistent with atrial fibrillation with rapid ventricular response. He has sustained in the low 100s. Discussed case with on-call hospitalist, Dr. Gómez who agrees with plan for admission. Patient agrees with and understands course of treatment plan including plan for admission. All questions answered. - Medical Records Medical records reviewed: Yes I reviewed the patient's medical records. - Lab Data Lab results reviewed: Yes I reviewed the patient's lab results. Result diagrams: 11/20/18 12:16 Lab Results 11/20/18 Range/Units 12:16 Sodium 140 (136-145) mEq/L Potassium 4.5 (3.5-5.1) mEq/L Chloride 107 (98-107) mEq/L Carbon Dioxide 29 (23-29) mEq/L BUN 21 (8-23) mg/dL Creatinine 1.24 (0.70-1.30) mg/dL Est GFR ( Amer) > 60 (> 60) Est GFR (Non-Af Amer) 59 L (> 60) BUN/Creatinine Ratio 17 (6-26) Glucose 98 (70-105) mg/dL Calculated Osmolality 293 (280-300) Calcium 9.6 (8.6-10.3) mg/dL Troponin I 0.05 H* (< 0.04) ng/mL - Radiology Data Radiology results reviewed: Yes I reviewed the patient's radiology results. Chest X-Ray 11/20/18 12:24 IMPRESSION: No acute abnormalities seen in the chest. Mild stable cardiomegaly D/ / Denton Bhagat MD / Denton Bhagat MD Interpreting Provider: Denton Bhagat MD - EKG Data EKG #1 EKG attestation: Yes I reviewed and interpreted this EKG. EKG results narrative: Atrial fibrillation with rapid ventricular rate of 108. Normal axis. No evidence of ST elevations. When compared with prior from 11/13/18 there are no significant changes.
[2018-11-20 13:07] LABS: BUN/Creatinine Ratio 17 (6-26); Blood Urea Nitrogen 21 mg/dL (8-23); Calcium 9.6 mg/dL (8.6-10.3); Carbon Dioxide 29 mEq/L (23-29); Chloride 107 mEq/L (98-107); Glucose 98 mg/dL (70-105); Osmolality,Calculated 293 (280-300); Potassium 4.5 mEq/L (3.5-5.1); Sodium 140 mEq/L (136-145); eGFR For Non-African Americans 59 (> 60)
[2018-11-20 13:12] LABS: Troponin I 0.05 ng/mL (< 0.04)
[2018-11-20] MEDS ORDERED: Naloxone 0.4 MG/ML INJ IVP PRN (13:42)
--- NOTE | 2018-11-20 14:01 | Internal Med History&Physical ---
Date of Encounter: 11/20/18 Time of Encounter: 13:40 Internal Medicine - H&P: HPI Chief complaint: chest pain and palipitation Admitted From: Home Plans for Post Hospital Care: Home History of present illness: Mr. Johnson is a 63 year old male who has a history of paroxysmal atrial fibrillation, COPD asthma, hypertension hyperlipidemia CAD status post CABG , presented to cardiology clinic for chest pain palpation. In the Dr. Rosas's office he was found atrail fibrillation with rapid ventricular response, then se nt to emergency room for admission plan is cardioversion tomorrow. Patient has chronic otherwise sided chest pain, etc. all 4 out of 10 constant associated was shortness of breasts since he had to thrombectomy. He does have on and off palpation. Denies dizziness diaphoresis. He has been taking Eliquis twice a day regularly, last dose was this morning 9:00. Patient is going to be admitted for A-fib with RVR, patient has normal CBC, troponin 0.05 chest x-ray shows mild cardiomegaly. Discussed it was bacon skinner will have cardioversion tomorrow, continue ELiquis, echocardiogram ordered. Past Med Surg Social Fam HX - Past Medical History Medical history: asthma, atrial fibrillation, cardiomyopathy, CHF, COPD, coronary artery disease, hyperlipidemia, hypertension, myocardial infarction Additional medical history: emphysema Psychiatric history: anxiety - Past Surgical History Surgical History: coronary bypass (CABG), herniorrhaphy, IVC Filter, other (Right thoracotomy with multiple bleb resections) Additional surgical history: THORACOTOMY - Social History Smoking Status: Former smoker Smokeless Tobacco Status: No Alcohol use: none Drug use: none - Family History Brother Hx Family Cardiac Disorders: Yes ([place]) Mother Living Status: Hx Family Cardiac Disorders: No Hx Family Respiratory Disorders: No Hx Family Cancer: No Hx Family GI Disorders: No Hx Family Endocrine Disorder: No Hx Family Neuromuscular Disorders: No Hx Family Neurologic Disorders: No Hx Family HEENT Disorders: No Hx Family Autoimmune Disorders: No Father Living Status: Hx Family Cardiac Disorders: No Hx Family Respiratory Disorders: No Hx Family Cancer: No Hx Family GI Disorders: No Hx Family Endocrine Disorder: No Hx Family Neuromuscular Disorders: No Hx Family Neurologic Disorders: No Hx Family HEENT Disorders: No Hx Family Autoimmune Disorders: No Internal Medicine - H&P: Meds Atorvastatin Calcium [Lipitor] 80 mg PO HS 02/02/16 [History] Nitroglycerin [Nitrostat] 0.4 mg SL Q5M PRN 07/30/16 [History] Amiodarone [Cordarone] 200 mg PO DAILY 04/22/17 [History] Metoprolol [Lopressor] 12.5 mg PO BID 10/05/17 [History] Lactulose 20 gm PO DAILY PRN #30 udc 11/01/17 [Rx] Furosemide [Lasix] 40 mg PO DAILY 11/06/17 [History] Apixaban [Eliquis] 5 mg PO BID 11/11/17 [History] Potassium Chloride 20 meq PO DAILY #14 tab.er.prt 11/28/17 [Rx] Albuterol Sulfate [Albuterol Inhaler] 2 puff IH Q6H PRN 01/31/18 [History] HYDROcodone/Acet 10/325 mg [[place] 10-325 mg] 1 tab PO Q6H PRN 01/31/18 [History] Lisinopril [Zestril] 20 mg PO DAILY 01/31/18 [History] Aspirin [Adult Aspirin Regimen] 81 mg PO DAILY 04/22/18 [History] Calcium Polycarbophil [Fibercon] 625 mg PO BID 04/22/18 [History] levoFLOXacin [Levaquin] 500 mg PO DAILY #3 tablet 04/24/18 [Rx] Metoprolol [Lopressor] 25 mg PO BID #30 tablet 11/13/18 [Rx] Allergy/AdvReac Type Severity Reaction Status Date / Time No Known Allergies Allergy Verified 01/31/18 10:56 All Systems PM: A 10-system review of systems was performed and is negative for pertinent findings except as documented above in the HPI. - Constitutional Vitals: Temp Pulse Resp BP Pulse Ox 98.3 F 122 18 145/101 97 11/20/18 12:01 11/20/18 12:01 11/20/18 12:01 11/20/18 12:01 11/20/18 12:01 General appearance: Present: A&O X 3, pleasant Exam: CONSTITUTIONAL: Patient appears as an age appropriate male well developed, in no acute distress. EYES Clear sclerae, bilateral pupils are equal, reactive to light and accommodation. Extraocular movements are intact RESPIRATORY: No accessory muscle use, bilateral clear to auscultation, no wheezing, no crackles/rales. CARDIOVASCULAR: irRegular heart rate, normal S1 and S2, no murmurs GASTROINTESTINAL: bowel sounds present, soft, no tenderness. No hepatosplenomegaly. No bilateral CVA tenderness MUSCULOSKELETAL: Joints in normal range of motion, no clubbing, no edema, no cyanosis. Bilateral peripheral pulses 2+ LYMPHATIC no lymphadenopathy in neck, groin and axilla bilaterally, no thyromegaly. NEUROLOGIC: CN II to XII are grossly intact, no focal neurological deficit. Deep tendon reflexes 2+ bilaterally. Normal light touch sensation to upper and lower extremity PSYCHIATRIC: Oriented x3, with good insight, mood is euthymic. No hallucinations or delusions. SKIN: Skin warm and dry, no rashes, no open wound. Internal Med - H&P Results - Labs CBC & Chem 7: 11/20/18 12:16 Labs: BMP 11/20/18 12:16 Sodium 140 Potassium 4.5 Chloride 107 Carbon Dioxide 29 BUN 21 Creatinine 1.24 Glucose 98 Calcium 9.6 Cardiac Enzymes 11/20/18 Range/Units 12:16 Troponin I 0.05 H* (< 0.04) ng/mL - Impressions ITS Impressions Chest X-Ray 11/20/18 12:24 IMPRESSION: No acute abnormalities seen in the chest. Mild stable cardiomegaly D/ / Denton Bhagat MD / Denton Bhagat MD Interpreting Provider: Denton Bhagat MD - Assessment and plan (1) Atrial fibrillation Current Visit: Yes Status: Chronic Assessment and plan: Patient has proxysmal atrial fibrillation, he was found in rapid ventricular response and heart rate about 100 will continue home metoprolol Eliquis, consult cardiology. Discussed with cardiology, will have cardioversion tomorrow , TTE ordered Qualifiers: Atrial fibrillation type: paroxysmal Qualified Code(s): I48.0 - Paroxysmal atrial fibrillation (2) Hypertension Current Visit: Yes Status: Chronic Assessment and plan: Continue home meds Qualifiers: Hypertension type: essential hypertension Qualified Code(s): I10 - Essential (primary) hypertension (3) Dyslipidemia Current Visit: Yes Status: Chronic Assessment and plan: statin (4) CAD (coronary artery disease) Current Visit: Yes Status: Chronic Assessment and plan: s/p CABG Qualifiers: Coronary Disease-Associated Artery/Lesion type: [place] artery [place] vs. transplanted heart: [place] heart Associated angina: without angina Qualified Code(s): I25.10 - Atherosclerotic heart disease of [place] coronary artery w ithout angina pectoris (5) Elevated troponin Current Visit: Yes Status: Chronic Assessment and plan: william from demanding ischemia, follow up trop, cardiology is on board (6) COPD (chronic obstructive pulmonary disease) Current Visit: No Status: Chronic Qualifiers: COPD type: emphysema Emphysema type: unspecified Qualified Code(s): J43.9 - Emphysema, unspecified (7) Chronic respiratory failure Current Visit: No Status: Chronic Assessment and plan: from COPD on 3 L NC at night, prn during day Qualifiers: Respiratory failure complication: hypoxia Qualified Code(s): J96.11 - Chronic respiratory failure with hypoxia - Time Spent With Patient Total time spent is greater than 50% in coordination of care (as documented) at patient's floor/unit and/or counseling patient: Greater than 35 minutes
[2018-11-20 14:07] LABS: Hematocrit 37.2 % (37.5-50.1); Hemoglobin 11.3 g/dL (12.9-16.9)
[2018-11-20 14:29] LABS: Troponin I 0.04 ng/mL (< 0.04)
[2018-11-20 14:41] LABS: Thyroid Stimulating Hormone 1.219 mcIU/mL (0.340-5.600)
[2018-11-20] MEDS ORDERED: Lactulose Oral Soln 20 GM/30 ML UDC PO PRN (16:05)
[2018-11-20] MEDS ORDERED: Nitroglycerin 0.4 MG TAB.SUBL SL PRN (16:05)
[2018-11-20] MEDS: D5% in 0.45% NACL 1,000 ML IVC SCH (16:06)
[2018-11-20] MEDS: *HR* HYDROcodone/Acet 10/325 mg TABLET PO PRN ×2 (16:13→22:36)
[2018-11-20] MEDS: Apixaban 5 MG TABLET PO SCH (21:29)
[2018-11-21 01:40] LABS: Basophils % 0.4 %; Eosinophils # 0.2 K/mcL (0.0-0.6); Eosinophils % 3.4 %; Hematocrit 31.5 % (37.5-50.1); Hemoglobin 9.8 g/dL (12.9-16.9); Immature Granulocytes % 0.1 % (0-4); Lymphocytes # 1.9 K/mcL (0.6-4.6); Lymphocytes % 28.2 %; Mean Corpuscular HGB Conc 31.1 g/dL (31.6-35.5); Mean Corpuscular Hemoglobin 26.5 pg (28.0-33.3); Mean Corpuscular Volume 85.1 fL (83.0-100.0); Mean Platelet Volume 10.5 fL (9.4-12.4); Monocytes # 0.7 K/mcL (0.0-1.3); Monocytes % 9.9 %; Platelet Count 195 K/mcL (140-400); Red Cell Distribution Width 17.4 % (11.5-14.5)
[2018-11-21 02:00] LABS: BUN/Creatinine Ratio 21 (6-26); Blood Urea Nitrogen 21 mg/dL (8-23); Calcium 8.6 mg/dL (8.6-10.3); Carbon Dioxide 29 mEq/L (23-29); Chloride 110 mEq/L (98-107); Chol/HDL Ratio 2.9 (0-4.9); Cholesterol 110 mg/dL (< 200); Glucose 118 mg/dL (70-105); HDL Cholesterol 38 mg/dL (40-59); LDL Cholesterol,Calculated 63 mg/dL (0-99); Magnesium 1.9 mg/dL (1.6-2.6); Osmolality,Calculated 290 (280-300); Potassium 4.4 mEq/L (3.5-5.1); Sodium 138 mEq/L (136-145); Triglycerides 44 mg/dL (< 150); eGFR For Non-African Americans > 60 (> 60)
[2018-11-21] MEDS: D5% in 0.45% NACL 1,000 ML IVC SCH (05:20)
[2018-11-21] MEDS: *HR* HYDROcodone/Acet 10/325 mg TABLET PO PRN ×3 (05:23→18:28)
[2018-11-21] MEDS: Aspirin Enteric Coated 81 MG Tablet PO SCH (09:02)
[2018-11-21] MEDS: Furosemide 40 MG TABLET PO SCH (09:02)
[2018-11-21] MEDS: Apixaban 5 MG TABLET PO SCH ×2 (09:03→21:53)
[2018-11-21] MEDS: Lisinopril 20 MG TABLET PO SCH (09:03)
--- NOTE | 2018-11-21 10:28 | Cardiology Consult Note ---
<Urban Sibley R - Last Filed: 11/21/18 10:46> Date of Encounter: 11/21/18 Time of Encounter: 10:26 Assessment and Plan (1) Atrial fibrillation Current Visit: Yes Status: Chronic Known hx of PAF/Fl. On Lopressor 25mg BID and anticoagulated on Eliquis. Eliquis restarted 2 weeks ago. Presented to see Dr. Marie outpt yesterday and was in A-Fib RVR. Was recommended to come to ED and have PRAVEENA/DCCV. Pt remains in A-Fib/Fl. Will increase Lopressor to 50mg BID. K, Mag, TSH WNL. Plan for PRAVEENA/DCCV as recommended by Dr. Marie in attempt to restore SR. R/B/A discussed. Pt agrees to proceed. Of note, HGB has decreased to 9.8. Was 11.3 on admission. Hx of fluctuating HGB. Denies active bleeding. TTE pending to re-evaluate structure and function. Continue to follow. Qualifiers: Atrial fibrillation type: paroxysmal Qualified Code(s): I48.0 - Paroxysmal atrial fibrillation (2) Epigastric pain Current Visit: Yes Status: Chronic Reports epigastric pain as well as chronic right sided chest pain s/p thoracotomy. Will order ABD US today. TTE pending. Discussed repeat ischemic evaluation (stress test). Nuclear stress test 04/2018 sub-diaphragmatic activity limited interpretation of inferior wall. At this time, pt declines repeat ischemic eval. Will re-discuss later today. (3) CAD (coronary artery disease) Current Visit: Yes Status: Chronic Hx CABG in 2013. Continue ASA, Statin, BB, ACEi. Qualifiers: Coronary Disease-Associated Artery/Lesion type: [place] artery [place] vs. transplanted heart: [place] heart Associated angina: without angina Qualified Code(s): I25.10 - Atherosclerotic heart disease of [place] coronary artery w ithout angina pectoris (4) Elevated troponin Current Visit: Yes Status: Chronic Troponins chronically elevated. 0.05, 0.04, 0.05, 0.04 in setting of A-Fib RVR. Suspect demand ischemia, nondiagnostic for ACS. Cardiac rehab not warranted. TTE pending. Nuclear stress test 01/2018 negative for ischemia or infarct, unable to rule out inferior ischemia due to diaphragmatic uptake. TTE 01/2018 with LVEF 55-60%, no segmental wall motion abnormalities. Discussion w patient/family: The assessment and plan as outlined above was discussed with the patient and/or family members who expressed understanding and agreement. All questions were answered. Thank you for involving us in the care of your patient. Please call with any questions. I will discuss all the above with Dr. Reed and make changes as necessary. History of Present Illness Consult date: 11/21/18 Consult reason: A-Fib RVR Chief complaint: epigastric pain, right sided chest pain History of present illness: Mr. Johnson is a 63 year old male with PMH of CAD s/p CABG 2013, HTN, COPD, A- Fib, epigatric pain, recurrent pneumothorax s/p thoracotomy 11/2017 who presented to [facility] from the cardiology office for chest pain and palpitations. He saw Dr. Marie yesterday, was found to be in A-Fib RVR and sent to ED to be admitted for PRAVEENA/DCCV and further work-up. He reports chronic right sided chest pain since he had his thoracotomy. He reports intermittent palpitations and epigastric pain. Pt is anticoagulated on Eliquis. He lost insurance and just restarted Eliquis approximately 2 weeks ago. Cardiology consulted for further recs. Troponin 0.05, 0.04, 0.05, 0.04. Prior CV testing: Limited TTE 04/23/18: LVEF 55-60%. Normal LV chamber size, wall thickness and function. Atypical septal motion consistent with post-operative status. Nuclear stress test 04/24/18: Sub-diaphragmatic activity limits interpretation of the inferior wall. Other segments demonstrate normal rest and stress perfusion without evidence for ischemia or infarct. Gated EF >70%. Past Med Surg Social Fam HX - Past Medical History Medical history: asthma, atrial fibrillation, cardiomyopathy, CHF, COPD, coronary artery disease, hyperlipidemia, hypertension, myocardial infarction Additional medical history: emphysema Psychiatric history: anxiety - Past Surgical History Surgical History: coronary bypass (CABG), herniorrhaphy, IVC Filter, other Additional surgical history: THORACOTOMY - Social History Smoking Status: Former smoker Smokeless Tobacco Status: No Alcohol use: none Drug use: none - Family History Brother Age: 64 Living Status: Still Living Hx Family Cardiac Disorders: Yes (LA, stents x4, CHF) Hx Family Endocrine Disorder: Yes (DM type 2) Mother Living Status: Age at : 75 Cause of : Alzheimer's disease Hx Family Cardiac Disorders: No Hx Family Respiratory Disorders: No Hx Family Cancer: No Hx Family GI Disorders: No Hx Family Endocrine Disorder: No Hx Family Neuromuscular Disorders: No Hx Family Neurologic Disorders: No Hx Family HEENT Disorders: No Hx Family Autoimmune Disorders: No Father Living Status: Age at : 72 Cause of : Cirrhosis Hx Family Cardiac Disorders: No Hx Family Respiratory Disorders: No Hx Family Cancer: No Hx Family GI Disorders: Yes (Cirrhosis) Hx Family Endocrine Disorder: No Hx Family Neuromuscular Disorders: No Hx Family Neurologic Disorders: No Hx Family HEENT Disorders: No Hx Family Autoimmune Disorders: No Hx Family Medical Disorders: Yes (Alcoholism) Medications and Allergies Atorvastatin Calcium [Lipitor] 80 mg PO QPM 02/02/16 [History] Nitroglycerin [Nitrostat] 0.4 mg SL Q5M PRN 07/30/16 [History] Lactulose 20 gm PO DAILY PRN #30 udc 11/01/17 [Rx] Furosemide [Lasix] 40 mg PO DAILY 11/06/17 [History] Apixaban [Eliquis] 5 mg PO BID 11/11/17 [History] Potassium Chloride 20 meq PO DAILY #14 tab.er.prt 11/28/17 [Rx] Albuterol Sulfate [Albuterol Inhaler] 2 puff IH BID PRN 01/31/18 [History] HYDROcodone/Acet 10/325 mg [[place] 10-325 mg] 1 tab PO Q6H PRN 01/31/18 [History] Lisinopril [Zestril] 20 mg PO DAILY 01/31/18 [History] Aspirin [Adult Aspirin Regimen] 81 mg PO DAILY 04/22/18 [History] Metoprolol [Lopressor] 25 mg PO BID #30 tablet 11/13/18 [Rx] Allergy/AdvReac Type Severity Reaction Status Date / Time No Known Allergies Allergy Verified 11/20/18 14:14 All Systems Review: The remainder of the systems were reviewed and are negative - Cardiovascular Cardiovascular: as per HPI, chest pain at rest, chest pain with exertion, dyspnea at rest, dyspnea on exertion, palpitations - Respiratory Respiratory: dyspnea Physical Examination Vital Signs, Last 4 Hours Temp Pulse Resp BP Pulse Ox 11/21/18 08:32 98.6 F 102 16 142/98 94 Vital Signs Temp Pulse Resp BP Pulse Ox 11/21/18 08:32 98.6 F 102 16 142/98 94 11/21/18 04:45 98.2 F 66 15 136/92 98 11/20/18 23:57 98.8 F 99 15 142/95 95 11/20/18 21:30 94 11/20/18 19:29 98.2 F 100 15 126/89 95 11/20/18 16:33 98.8 F 96 18 136/97 93 11/20/18 14:29 98.2 F 123 15 141/98 95 11/20/18 14:04 18 140/105 11/20/18 12:01 98.3 F 122 18 145/101 97 Intake and Output 11/20/18 11/21/18 11/21/18 23:59 07:59 15:59 Intake Total 360 / 360 1000 / 1000 Output Total 650 / 650 0 / 0 Balance -290 / -290 1000 / 1000 Intake: IV Fluids 1000 / 1000 D5% And 0.45% Nacl 1000 Ml Bag 1000 / 1000 1,000 ML @ 75 mls/hr IVC . [id number] JERMAINE Rx#:[id number] Oral 360 / 360 0 / 0 Output: Urine 650 / 650 0 / 0 Other: Meal Dinner NPO Percent of Meal Consumed 100% Weight 80.4 kg 80.4 kg Blood Glucose* 112 Patient Weight 11/21/18 23:59 Weight 80.4 kg General: Conversant, No Apparent Distress HEENT: Atraumatic, Normocephaly, Mucus Membranes Moist Neck: No JVD, Normal carotid pulses Cardiac: Other (irregularly irregular) Lungs: Other (wheezes noted) Neuro: Alert and responsive, No focal deficits noted Abdomen: Soft, Non-Tender Skin: No rashes noted on visualized skin Musculoskeletal: No Chest Wall Tenderness Extremities: No Clubbing, No Cyanosis, No Edema, Normal Pulses Results 11/21/18 01:28 11/21/18 01:28 Lab Results 11/20/18 11/20/18 11/20/18 12:16 13:49 13:49 WBC Hgb 11.3 L Hct 37.2 L Plt Count APTT Sodium 140 Potassium 4.5 Chloride 107 Carbon Dioxide 29 BUN 21 Creatinine 1.24 Glucose 98 Calcium 9.6 Magnesium Troponin I 0.05 H* 0.04 H* B-Natriuretic Peptide TSH 1.219 11/20/18 11/21/18 11/21/18 20:04 01:28 01:28 WBC 6.9 Hgb 9.8 L D Hct 31.5 L Plt Count 195 APTT Sodium Potassium Chloride Carbon Dioxide BUN Creatinine Glucose Calcium Magnesium Troponin I 0.05 H* 0.04 H* B-Natriuretic Peptide TSH 11/21/18 11/21/18 11/21/18 01:28 01:28 01:28 WBC Hgb Hct Plt Count APTT 38.4 H Sodium 138 Potassium 4.4 Chloride 110 H Carbon Dioxide 29 BUN 21 Creatinine 0.98 Glucose 118 H Calcium 8.6 Magnesium 1.9 Troponin I B-Natriuretic Peptide 223 H TSH Short CBC 11/21/18 11/20/18 Range/Units 01:28 13:49 WBC 6.9 (4.3-11.1) K/mcL Hgb 9.8 L D 11.3 L (12.9-16.9) g/dL Hct 31.5 L 37.2 L (37.5-50.1) % Plt Count 195 (140-400) K/mcL Neutrophils # 4.0 (1.6-8.9) K/mcL BMP 11/21/18 11/20/18 Range/Units 01:28 12:16 Sodium 138 140 (136-145) mEq/L Potassium 4.4 4.5 (3.5-5.1) mEq/L Chloride 110 H 107 (98-107) mEq/L Carbon Dioxide 29 29 (23-29) mEq/L BUN 21 21 (8-23) mg/dL Creatinine 0.98 1.24 (0.70-1.30) mg/dL Glucose 118 H 98 (70-105) mg/dL Calcium 8.6 9.6 (8.6-10.3) mg/dL Cardiac Enzymes 11/21/18 11/20/18 11/20/18 Range/Units 01:28 20:04 13:49 Troponin I 0.04 H* 0.05 H* 0.04 H* (< 0.04) ng/mL 11/20/18 Range/Units 12:16 Troponin I 0.05 H* (< 0.04) ng/mL Impressions Chest X-Ray 11/20/18 12:24 IMPRESSION: No acute abnormalities seen in the chest. Mild stable cardiomegaly D/ / Denton Bhagat MD / Denton Bhagat MD Interpreting Provider: Denton Bhagat MD Active Medications Hydrocodone Bitart/Acetaminophen ([place] 10-325 Mg) 1 each PO Q6H PRN PRN Reason: Pain Stop: 05/22/19 16:06 Last Admin: 11/21/18 05:23 Dose: 1 each Albuterol Sulfate (Albuterol Inhaler) 2 puff IH BID PRN PRN Reason: Shortness Of Breath Stop: 05/22/19 14:16 Apixaban (Eliquis) 5 mg PO BID [facility] Stop: 05/22/19 21:01 Last Admin: 11/21/18 09:03 Dose: 5 mg Aspirin (Aspirin Ec) 81 mg PO DAILY [facility] Stop: 05/23/19 09:01 Last Admin: 11/21/18 09:02 Dose: 81 mg Atorvastatin Calcium (Lipitor) 80 mg PO QPM [facility] Stop: 05/22/19 18:01 Last Admin: 11/20/18 18:06 Dose: 80 mg Furosemide (Lasix) 40 mg PO DAILY [facility] Stop: 05/23/19 09:01 Last Admin: 11/21/18 09:02 Dose: 40 mg Dextrose/Sodium Chloride (D5% And 0.45% Nacl 1000 Ml Bag) 1,000 mls @ 75 mls/hr IVC .[id number] [facility] Stop: 11/21/18 16:24 Last Admin: 11/21/18 05:20 Dose: 75 mls/hr Lactulose (Lactulose) 20 gm PO DAILY PRN PRN Reason: Constipation Stop: 05/22/19 16:06 Lisinopril (Zestril) 20 mg PO DAILY [facility]; Protocol Stop: 05/23/19 09:01 Last Admin: 11/21/18 09:03 Dose: 20 mg Metoprolol Tartrate (Lopressor) 25 mg PO BID JERMAINE Stop: 05/22/19 21:01 Last Admin: 11/21/18 09:03 Dose: 25 mg Naloxone HCl (Narcan) 0.4 mg IVP Q2MIN PRN PRN Reason: SEE COMMENTS Stop: 05/22/19 13:43 Nitroglycerin (Nitroglycerin) 0.4 mg SL Q5M PRN PRN Reason: Chest Pain Stop: 05/22/19 16:06 Potassium Chloride (Potassium Chloride) 20 meq PO DAILY [facility]ER[facility] Stop: 05/23/19 09:01 Last Admin: 11/21/18 09:03 Dose: 20 meq - Imaging and Cardiology Stress Test: report reviewed Echo: report reviewed - EKG Interpretation EKG results cardiology: personally reviewed (A-Flutter RVR), other (12 hr tele AVG HR 82, A-Fib) Consult Discharge Plan - Plan Referrals: Siria Whitehead, [employer] TARGETING TECHNICIAN [Primary Care Provider] - <Jared Reed - Last Filed: 11/21/18 14:13> Date of Encounter: 11/21/18 - Attending Attestation I have personally performed a face to face evaluation on this patient. I have reviewed and agree with the documented findings and care plan as documented by the [employer] T[employer]ING TECHNICIAN. History and Exam by me shows: 63-year-old gentleman, patient of Dr. Marie with past history of A. fib on [employer], sent for PRAVEENA cardioversion on account of A. fib with RVR. Additionally he has intermittent epigastric pain. He had a stress test last year which was negative. AAOX3 in NAD at the bedside Hemodynamically stable Cardiopulmonary exam revealed irregularly irregular rhythm S1-S2, lungs are clear Rhythm reviewed -atrial fibrillation Echo preserved ejection fraction Impression/plan: For PRAVEENA cardioversion today for A. fib with RVR. Recommended stress test for epigastric pain after r/o gallbladder disease by obtaining ultrasound. Thanks, Jared Reed MD [facility] Assessment and Plan Discussion w patient/family: The assessment and plan as outlined above was discussed with the patient and/or family members who expressed understanding and agreement. All questions were answered. Thank you for involving us in the care of your patient. Please call with any questions. History of Present Illness History of present illness: Mr. Johnson is a 63 year old male All Systems Review: The remainder of the systems were reviewed and are negative Physical Examination Vital Signs, Last 4 Hours Temp Pulse Resp BP Pulse Ox 11/21/18 14:07 98.1 F 64 16 111/71 92 11/21/18 12:40 85 16 137/102 98 11/21/18 12:16 97.9 F 126 12 146/111 93 Results 11/21/18 01:28 11/21/18 01:28 Lab Results 11/20/18 11/20/18 11/20/18 12:16 13:49 20:04 WBC Hgb Hct Plt Count APTT Sodium 140 Potassium 4.5 Chloride 107 Carbon Dioxide 29 BUN 21 Creatinine 1.24 Glucose 98 Calcium 9.6 Magnesium Troponin I 0.05 H* 0.04 H* 0.05 H* B-Natriuretic Peptide TSH 1.219 11/21/18 11/21/18 11/21/18 01:28 01:28 01:28 WBC 6.9 Hgb 9.8 L D Hct 31.5 L Plt Count 195 APTT 38.4 H Sodium Potassium Chloride Carbon Dioxide BUN Creatinine Glucose Calcium Magnesium Troponin I 0.04 H* B-Natriuretic Peptide TSH 11/21/18 11/21/18 01:28 01:28 WBC Hgb Hct Plt Count APTT Sodium 138 Potassium 4.4 Chloride 110 H Carbon Dioxide 29 BUN 21 Creatinine 0.98 Glucose 118 H Calcium 8.6 Magnesium 1.9 Troponin I B-Natriuretic Peptide 223 H TSH
[2018-11-21] MEDS ORDERED: Lidocaine Viscous Oral Soln 15 ML SOLUTION MM PRN (12:14)
[2018-11-21] MEDS ORDERED: Tetracaine/Benzocaine/Butamben 1 SPRAY AEROSOL MM ONE (12:15)
[2018-11-21] MEDS ORDERED: 0.9 % Sodium Chloride 500 ML IVC ONE (12:15)
[2018-11-21] MEDS: *HR* FentaNYL (PF) 100 MCG/2 ML VIAL IVP PRN ×2 (12:50→13:10)
[2018-11-21] MEDS: *HR* Midazolam HCl 5 MG/5 ML VIAL IVP PRN ×2 (12:51→13:10)
--- NOTE | 2018-11-21 14:04 | Internal Med Progress Note ---
Hospitalist Progress Note - Encounter Date of Encounter: 11/21/18 Time of Encounter: 11:00 - Subjective Interval History: H&P reviewed. Patient with history of paroxysmal A. fib, CAD status post CABG, chronic right-sided chest pain post thoracotomy, is admitted for afib with RVR. Currently plan for DCCV. Complains of mild epigastric pain this morning without fever/chills or N/V. - Exam Vitals: Temp Pulse Resp BP Pulse Ox 97.9 F 85 16 137/102 98 11/21/18 12:16 11/21/18 12:40 11/21/18 12:40 11/21/18 12:40 11/21/18 12:40 Exam: General: Alert and oriented, not in acute distress. Cardiovascular:Normal S1 & S2, No JVD. Pulse regular. Lungs: clear to auscultation, no wheezes/rales Abdomen:Soft, mild epigastric tenderness. No rebound/guarding/rigidity Neurological:Normal cognition and motor skills. Non-focal Skin:Normal color, no rash, no lesions. 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 plan for PRAVEENA + DCCV today continue eliquis and bb (2) Epigastric pain Current Visit: Yes Status: Acute Assessment and Plan: has history of chronic R sided rib pain post thoracotomy will add LFT to morning lab US ordered by cardiology (3) CAD (coronary artery disease) Current Visit: Yes Status: Chronic Assessment and Plan: Resume home meds (4) COPD (chronic obstructive pulmonary disease) Current Visit: No Status: Chronic Assessment and Plan: Not in exacerbation resume PRN albuterol (5) Dyslipidemia Current Visit: Yes Status: Chronic Assessment and Plan: continue statin (6) Elevated troponin Current Visit: Yes Status: Chronic Assessment and Plan: Troponin flat and adynamic in the setting of A. fib with RVR likely demand ischemia Last stress 01/2018 -ve for ischemia/infarct appreciate cardiology input, declines further ischemic workup for now (7) DVT prophylaxis Current Visit: No Status: Acute Assessment and Plan: on eliquis - Time Spent with Patient Total time spent is greater than 50% in coordination of care (as documented) at patient's floor/unit and/or counseling patient: Plan of Care Discussed with: patient (discussed with RN and family members) Internal Medicine: Result - Labs CBC & Chem 7: 11/21/18 01:28 11/21/18 01:28 Labs: Short CBC 11/20/18 11/21/18 Range/Units 13:49 01:28 WBC 6.9 (4.3-11.1) K/mcL Hgb 11.3 L 9.8 L D (12.9-16.9) g/dL Hct 37.2 L 31.5 L (37.5-50.1) % Plt Count 195 (140-400) K/mcL Neutrophils # 4.0 (1.6-8.9) K/mcL BMP 11/20/18 11/21/18 12:16 01:28 Sodium 140 138 Potassium 4.5 4.4 Chloride 107 110 H Carbon Dioxide 29 29 BUN 21 21 Creatinine 1.24 0.98 Glucose 98 118 H Calcium 9.6 8.6 Cardiac Enzymes 11/20/18 11/20/18 11/20/18 Range/Units 12:16 13:49 20:04 Troponin I 0.05 H* 0.04 H* 0.05 H* (< 0.04) ng/mL 11/21/18 Range/Units 01:28 Troponin I 0.04 H* (< 0.04) ng/mL - Impressions Impressions Echocardiogram 11/20/18 13:50 Impressions: LVEF 50-55%. Normal LV chamber size, wall thickness and systolic function. Indeterminate diastolic function. Severely dilated left atrium. Normal right ventricular structure and function. Mild-moderate mitral regurgitation. Unable to estimate RVSP due to lack of TR jet. Left Ventricular Wall Motion: Rest Echo Findings All wall segments showed normal motion. Findings: Study Quality * Technically adequate exam. ECG Findings * Atrial fibrillation. Left Ventricle * LVEF 50-55%. * Normal LV chamber size, wall thickness and systolic function. * Indeterminate diastolic function. Right Ventricle * Normal right ventricular structure and function. Left Atrium * Severely dilated left atrium. Right Atrium * Normal right atrial size. Interatrial Septum * Interatrial septum not well evaluated. Aortic Valve * Aortic valve not well visualized. * No aortic stenosis. * No aortic regurgitation. Mitral Valve * Normal mitral valve structure. * No mitral stenosis. * Mild-moderate mitral regurgitation. Tricuspid Valve * Normal tricuspid valve structure. * No tricuspid stenosis. * Trace tricuspid regurgitation. * Unable to estimate RVSP due to lack of TR jet. * Estimated RA pressure is 15 mmHg. Pulmonic Valve * Pulmonic valve is not well visualized. * No pulmonic stenosis. * No pulmonic regurgitation. Aorta * Normally sized aortic root. Pericardium * The pericardium appears normal. IVC * The IVC is dilated. * < 50% respiratory change. Consult Discharge Plan - Plan Referrals: Siria Whitehead, MEDICAL IMAGING TECHNICIAN [Primary Care Provider] - (1) Atrial fibrillation Qualifiers: Atrial fibrillation type: paroxysmal Qualified Code(s): I48.0 - Paroxysmal atrial fibrillation (3) CAD (coronary artery disease) Qualifiers: Coronary Disease-Associated Artery/Lesion type: [place] artery [place] vs. transplanted heart: [place] heart Associated angina: without angina Qualified Code(s): I25.10 - Atherosclerotic heart disease of [place] coronary artery without angina pectoris (4) COPD (chronic obstructive pulmonary disease) Qualifiers: COPD type: emphysema Emphysema type: panlobular Qualified Code(s): J43.1 - Panlobular emphysema
[2018-11-21 14:12] LABS: Alanine Aminotransferase 10 Units/L (7-52); Albumin 4.2 g/dL (3.5-5.7); Albumin/Globulin Ratio 1.4 (1.1-2.2); Alkaline Phosphatase 89 Units/L (34-104); Aspartate Amino Transferase 16 Units/L (13-39); Bilirubin,Total 0.5 mg/dL (0.3-1.0); Globulin 2.9 g/dL (2.4-3.5); Total Protein 7.1 g/dL (6.4-8.9)
--- NOTE | 2018-11-21 15:56 | Event Note ---
Date of Encounter: 11/21/18 Time of Encounter: 15:53 - Cardiology Event Note TTE--LVEF 50-55%. Normal LV chamber size, wall thickness and systolic function. Indeterminate diastolic function. Severely dilated left atrium. Normal right ventricular structure and function. Mild-moderate mitral regurgitation. Unable to estimate RVSP due to lack of TR jet. S/P successful PRAVEENA/DCCV to SR. SR at bedside HR 60s-80s with PACs. Increased Lopressor from 12.5mg BID to 25mg BID. Anticoagulated on Eliquis. Gallbladder US pending for epigastric pain, not yet completed. If no significant findings on gallbladder US, would be okay for d/c home from cardiac standpoint. Pt declines inpt stress test. Can rediscuss outpt. Cardiology signing off. Reconsult PRN or if pt goes back into A-Fib. Will coordinate outpt follow-up in 1-2 weeks.
[2018-11-22 05:50] LABS: Hemoglobin 10.8 g/dL (12.9-16.9); Mean Corpuscular HGB Conc 30.9 g/dL (31.6-35.5); Mean Corpuscular Hemoglobin 26.3 pg (28.0-33.3); Mean Corpuscular Volume 85.4 fL (83.0-100.0); Mean Platelet Volume 10.6 fL (9.4-12.4); Platelet Count 181 K/mcL (140-400); Red Cell Distribution Width 17.4 % (11.5-14.5)
[2018-11-22 06:11] LABS: Alanine Aminotransferase 7 Units/L (7-52); Albumin 3.5 g/dL (3.5-5.7); Albumin/Globulin Ratio 1.5 (1.1-2.2); Alkaline Phosphatase 79 Units/L (34-104); Aspartate Amino Transferase 12 Units/L (13-39); BUN/Creatinine Ratio 22 (6-26); Bilirubin,Total 0.5 mg/dL (0.3-1.0); Blood Urea Nitrogen 21 mg/dL (8-23); Carbon Dioxide 27 mEq/L (23-29); Chloride 108 mEq/L (98-107); Globulin 2.4 g/dL (2.4-3.5); Glucose 84 mg/dL (70-105); Osmolality,Calculated 292 (280-300); Potassium 4.5 mEq/L (3.5-5.1); Sodium 140 mEq/L (136-145); Total Protein 5.9 g/dL (6.4-8.9); eGFR For Non-African Americans > 60 (> 60)
[2018-11-22] MEDS: Lisinopril 20 MG TABLET PO SCH (08:32)
[2018-11-22] MEDS: Apixaban 5 MG TABLET PO SCH (08:32)
[2018-11-22] MEDS: Aspirin Enteric Coated 81 MG Tablet PO SCH (08:33)
[2018-11-22] MEDS: *HR* HYDROcodone/Acet 10/325 mg TABLET PO PRN (08:33)
[2018-11-22] MEDS: Furosemide 40 MG TABLET PO SCH (08:33)
[2018-11-22 09:46] VITALS: BP 135/79
--- NOTE | 2018-11-22 09:57 | Discharge Summary ---
- NOTES TO OUTPATIENT PROVIDER Notes to Outpatient Provider: Patient was admitted for A. fib with RVR and underwent PRAVEENA and DCCV uneventfully on 11/21. Post-procedure was in NSR with frequent PACs. Will be maintained on lopressor 25mg BID and eliquis for AC. Of note, due to chronic RUQ/epigastric pain, US was performed which showed CBD diameter of 10mm. However, there was no evidence of biliary obstruction on LFTs x 2 or clinical evidence of jaundice/cholangitis, and the decision was made to follow up with outpatient MRCP. Date of Encounter: 11/22/18 Time of Encounter: 07:45 - Discharge Diagnosis (1) Atrial fibrillation Priority: Primary Status: Acute Qualifiers: Atrial fibrillation type: paroxysmal Qualified Code(s): I48.0 - Paroxysmal atrial fibrillation (2) Epigastric pain Priority: Secondary Status: Acute (3) CAD (coronary artery disease) Priority: Secondary Status: Chronic Qualifiers: Coronary Disease-Associated Artery/Lesion type: [place] artery [place] vs. transplanted heart: [place] heart Associated angina: without angina Qualified Code(s): I25.10 - Atherosclerotic heart disease of [place] coronary artery without angina pectoris (4) COPD (chronic obstructive pulmonary disease) Priority: Secondary Status: Chronic Qualifiers: COPD type: emphysema Emphysema type: panlobular Qualified Code(s): J43.1 - Panlobular emphysema (5) Dyslipidemia Priority: Secondary Status: Chronic (6) Elevated troponin Priority: Secondary Status: Chronic (7) DVT prophylaxis Priority: Secondary Status: Acute Hospital course: Mr. Johnson is a 63 year old male who was admitted for A. fib with RVR and underwent PRAVEENA and DCCV uneventfully on 11/21. Post-procedure was in NSR with frequent PACs. Will be maintained on lopressor 25mg BID and eliquis for AC. Of note, due to chronic RUQ/epigastric pain, US was performed which showed CBD diameter of 10mm. However, there was no evidence of biliary obstruction on LFTs x 2 or clinical evidence of jaundice/cholangitis, and the decision was made to follow up with outpatient MRCP. Discharge discussed with: patient, nurse - Time Spent with Patient Total time spent providing and/or coordinating discharge services: 31 mins - Discharge Medications Home Medications: Atorvastatin Calcium [Lipitor] 80 mg PO QPM 02/02/16 [History] Nitroglycerin [Nitrostat] 0.4 mg SL Q5M PRN 07/30/16 [History] Lactulose 20 gm PO DAILY PRN #30 udc 11/01/17 [Rx] Furosemide [Lasix] 40 mg PO DAILY 11/06/17 [History] Apixaban [Eliquis] 5 mg PO BID 11/11/17 [History] Potassium Chloride 20 meq PO DAILY #14 tab.er.prt 11/28/17 [Rx] Albuterol Sulfate [Albuterol Inhaler] 2 puff IH BID PRN 01/31/18 [History] HYDROcodone/Acet 10/325 mg [[place] 10-325 mg] 1 tab PO Q6H PRN 01/31/18 [History] Lisinopril [Zestril] 20 mg PO DAILY 01/31/18 [History] Aspirin [Adult Aspirin Regimen] 81 mg PO DAILY 04/22/18 [History] Metoprolol [Lopressor] 25 mg PO BID #30 tablet 11/13/18 [Rx] Allergies/Adverse Reactions: Allergy/AdvReac Type Severity Reaction Status Date / Time No Known Allergies Allergy Verified 11/20/18 14:14 Date of admission: 11/20/18 13:42 Primary care physician: Siria Whitehead CNP Consults: 11/20/18 13:47 Consult to Physician [CONS] Routine Consulting Provider: BriannaSunday Carley Reason for Consult: atrial fib Call Completed: Yes - Constitutional Vitals: Temp Pulse Resp BP Pulse Ox 98.8 F 60 16 135/79 95 11/22/18 08:45 11/22/18 08:45 11/22/18 08:45 11/22/18 08:45 11/22/18 08:45 General appearance: Present: A&O X 3, pleasant Exam: General: Alert and oriented, not in acute distress. Eyes: anicteric sclera Cardiovascular:Normal S1 & S2, No JVD. Pulse regular. Lungs: clear to auscultation, no wheezes/rales Abdomen:Soft, minimal, intermittent epigastric tenderness. Olivera's negative. No rebound/guarding/rigidity Neurological:Normal cognition and motor skills. Non-focal Skin:Normal color, no rash, no lesions. - Patient Status Disposition: Home, Self-Care Condition: Good Functional capacity at discharge: independent ambulation Overall status at discharge: patient is progressing back to baseline - Discharge Instructions Instructions: Atrial Fibrillation (DC), Chronic Hypertension (DC) Follow Up With: Siria Whitehead, CLINICAL SOCIAL WORK THERAPIST [Primary Care Provider] - Additional Instructions: Follow up with cardiology as outpatient post DCCV - Diet and Activity Activity: resume usual activities as tolerated Diet: low salt diet
--- NOTE | 2018-11-22 14:42 | Electrocardiograph Report ---
[address] [address] Test Date: 2018-11-21 Pat Name: Jaylen Johnson Department: 111 Room: 2N1 Gender: M Fisher Dip Net: RUDDY : [id number] Requested By: Beny Soto Order Number: [id number] Reading MD: Malik Palencia Measurements Intervals [place] Rate: 124 P: VT: 0 QRS: 76 QRSD: 87 T: 32 QT: 296 QTc: 370 Interpretive Statements ATRIAL FLUTTER/TACHYCARDIA WITH RAPID VENTRICULAR RESPONSE NONSPECIFIC ST & T-WAVE ABNORMALITY ABNORMAL RHYTHM ECG Electronically Signed On 11-22-2018 14:40:29 EST by Malik Palencia
--- NOTE | 2018-11-26 10:46 | Emergency Department Note ---
Disposition Clinical Impression: Atrial fibrillation Qualifiers: Atrial fibrillation type: paroxysmal Qualified Code(s): I48.0 - Paroxysmal atrial fibrillation Disposition: Admitted As Inpatient Condition: Good General Adult HPI - General Chief complaint: ED Arrhythmia/Palpitations Stated complaint: AFIB Time Seen by Provider: 11/20/18 12:05 Source: patient Limitations: no limitations - History of Present Illness Pain Scale: 2 - Related Data Home Medications Medication Instructions Recorded Confirmed Atorvastatin Calcium [Lipitor] 80 mg PO QPM 02/02/16 11/20/18 Nitroglycerin [Nitrostat] 0.4 mg SL Q5M PRN 07/30/16 11/20/18 Furosemide [Lasix] 40 mg PO DAILY 11/06/17 11/20/18 Apixaban [Eliquis] 5 mg PO BID 11/11/17 11/20/18 Albuterol Sulfate [Albuterol 2 puff IH BID PRN 01/31/18 11/20/18 Inhaler] HYDROcodone/Acet 10/325 mg [[place] 1 tab PO Q6H PRN 01/31/18 11/20/18 10-325 mg] Lisinopril [Zestril] 20 mg PO DAILY 01/31/18 11/20/18 Aspirin [Adult Aspirin Regimen] 81 mg PO DAILY 04/22/18 11/20/18 Previous Rx's Medication Instructions Recorded Lactulose 20 gm PO DAILY PRN #30 udc 11/01/17 Potassium Chloride 20 meq PO DAILY #14 tab.er.prt 11/28/17 Metoprolol [Lopressor] 25 mg PO BID #30 tablet 11/13/18 Allergies Allergy/AdvReac Type Severity Reaction Status Date / Time No Known Allergies Allergy Verified 11/20/18 14:14 Constitutional: Denies: fever, chills, weakness Eyes: Denies: eye pain, eye discharge Cardiovascular: Reports: chest pain, palpitations, dyspnea on exertion. Denies: orthopnea, edema, syncope Respiratory: Denies: cough, dyspnea, wheezes, hemoptysis Gastrointestinal: Denies: abdominal pain, nausea, vomiting, diarrhea, constipation, hematemesis Genitourinary: Denies: urgency, dysuria, frequency Musculoskeletal: Denies: back pain, neck pain Integumentary: Denies: rash, abrasion Neurological: Denies: headache, weakness, numbness, paresthesias Psychiatric: Denies: anxiety, depression Endocrine: Denies: fatigue, heat or cold intolerance Hematological/Lymphatic: Denies: easy bleeding, easy bruising Past Medical History - Past Medical History Medical history: Reports: asthma, atrial fibrillation, cardiomyopathy, CHF, COPD, coronary artery disease, hyperlipidemia, hypertension, myocardial infarction Surgical history: Reports: coronary bypass (CABG), herniorrhaphy, IVC Filter, other Psychiatric history: Reports: anxiety - Social History Smoking Status: Former smoker Smokeless Tobacco Status: No Alcohol use: Reports: none Drug use: Reports: none Physical Exam - General Limitations: no limitations General appearance: alert, in no apparent distress Course Vital Signs Temperature 98.3 F 11/20/18 12:01 Pulse Rate 122 11/20/18 12:01 Respiratory Rate 18 11/20/18 12:01 Blood Pressure 145/101 11/20/18 12:01 O2 Sat by Pulse Oximetry 97 11/20/18 12:01 Temperature 98.8 F 11/22/18 08:45 Pulse Rate 60 11/22/18 08:45 Respiratory Rate 16 11/22/18 08:45 Blood Pressure 135/79 11/22/18 08:45 O2 Sat by Pulse Oximetry 95 11/22/18 08:45 Oxygen Delivery Oxygen Delivery Room Air Medical Decision Making - Lab Data Result diagrams: 11/22/18 05:28 11/22/18 05:28 Lab Results 11/20/18 Range/Units 12:16 Sodium 140 (136-145) mEq/L Potassium 4.5 (3.5-5.1) mEq/L Chloride 107 (98-107) mEq/L Carbon Dioxide 29 (23-29) mEq/L BUN 21 (8-23) mg/dL Creatinine 1.24 (0.70-1.30) mg/dL Est GFR ( Amer) > 60 (> 60) Est GFR (Non-Af Amer) 59 L (> 60) BUN/Creatinine Ratio 17 (6-26) Glucose 98 (70-105) mg/dL Calculated Osmolality 293 (280-300) Calcium 9.6 (8.6-10.3) mg/dL Total Bilirubin 0.5 (0.3-1.0) mg/dL AST 16 (13-39) Units/L ALT 10 (7-52) Units/L Alkaline Phosphatase 89 (34-104) Units/L Troponin I 0.05 H* (< 0.04) ng/mL Serum Total Protein 7.1 (6.4-8.9) g/dL Albumin 4.2 (3.5-5.7) g/dL Globulin 2.9 (2.4-3.5) g/dL Albumin/Globulin Ratio 1.4 (1.1-2.2) Attestation Statement - Attestation Attestation: I examined this patient and my medical decision-making was reviewed with the Resident Physician. I agree with the documented findings, disposition and treatment plan as described except to the extent set forth below. Pt sent to be admitted for recurrent paroxysmal A-fib. Hemodynamically stable. Labs reviewed, pt admitted.
--- NOTE | 2018-11-27 15:14 | Electrocardiograph Report ---
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
== END 2018-11-22 11:53 | disposition home or self-care (01) ==
LOC: 2NENU 11:59 → EMEROOARM 11:59 → SUATTDRO 13:42 → 2NENU 14:26
PROVIDERS: ADMIT Hospitalist; ATTEND Internal Medicine

== ENCOUNTER 2021-11-02 16:32 | Inpatient (IN) ==
[2021-11-02] MEDS ORDERED: Acetaminophen 325 MG TABLET PO PRN (18:05)
[2021-11-02] MEDS ORDERED: Ondansetron 4 MG/2 ML VIAL IVP PRN (18:05)
[2021-11-02] MEDS ORDERED: Melatonin 3 MG TABLET PO PRN (18:05)
[2021-11-02] MEDS ORDERED: DilTIAZem CD (24hr) 180 MG CAP.ER.24H PO SCH (19:45)
[2021-11-02] MEDS ORDERED: Saliva Stimulant 44.3ml BOTTLE PO PRN (19:52)
[2021-11-02] MEDS ORDERED: Furosemide 20 MG/2 ML VIAL IVP ONE (20:23)
[2021-11-02] MEDS ORDERED: Remdesivir 200 MG in 0.9 % Sodium Chloride 100 ML IVPB ONE (21:00)
[2021-11-02] MEDS: Chlorhexidine Rinse 15 ML MOUTHWASH MM SCH (21:31)
[2021-11-02] MEDS: Apixaban 5 MG TABLET PO SCH (21:32)
[2021-11-02] MEDS ORDERED: Budesonide/Formoterol 80/4.5 1 PUFF INH IH SCH (22:00)
[2021-11-02] MEDS: Ipratropium 1 PUFF INHALER IH SCH (23:00)
[2021-11-02] MEDS: Budesonide/Formoterol 160/4.5 1 PUFF INH IH SCH (23:00)
[2021-11-02] MEDS ORDERED: *HR* HYDROcodone/Acet 10/325 mg TABLET PO ONE (23:55)
[2021-11-03 02:43] LABS: Hematocrit 45.1 % (37.5-50.1); Hemoglobin 14.7 g/dL (12.9-16.9); Mean Corpuscular HGB Conc 32.6 g/dL (31.6-35.5); Mean Corpuscular Hemoglobin 30.1 pg (28.0-33.3); Mean Corpuscular Volume 92.2 fL (83.0-100.0); Mean Platelet Volume 10.9 fL (9.4-12.4); Platelet Count 191 K/mcL (140-400); Red Blood Count 4.89 M/mcL (4.19-5.50); Red Cell Distribution Width 14.1 % (11.5-14.5); White Blood Count 11.6 K/mcL (4.3-11.1)
[2021-11-03 02:55] LABS: INR 1.8; Prothrombin Time 19.7 Seconds (9.4-12.1)
[2021-11-03 03:03] LABS: Alanine Aminotransferase 13 Units/L (7-52); Albumin 3.6 g/dL (3.5-5.7); Albumin/Globulin Ratio 1.2 (1.1-2.2); Alkaline Phosphatase 73 Units/L (34-104); Aspartate Amino Transferase 18 Units/L (13-39); BUN/Creatinine Ratio 32 (6-26); Bilirubin,Total 0.5 mg/dL (0.3-1.0); Blood Urea Nitrogen 29 mg/dL (8-23); C-Reactive Protein 116 mg/L (Less than 10); Calcium 8.5 mg/dL (8.6-10.3); Carbon Dioxide 29 mEq/L (23-29); Chloride 100 mEq/L (98-107); Glucose 109 mg/dL (70-105); Lactate Dehydrogenase 211 Units/L (140-271); Osmolality,Calculated 292 (280-300); Potassium 3.9 mEq/L (3.5-5.1); Sodium 138 mEq/L (136-145); Total Protein 6.6 g/dL (6.4-8.9); eGFR For African Americans > 60 (> 60); eGFR For Non-African Americans > 60 (> 60)
[2021-11-03 03:08] LABS: Magnesium 1.8 mg/dL (1.6-2.6); Phosphorous 2.5 mg/dL (2.7-4.5); Troponin I 0.1 ng/mL (< 0.04)
[2021-11-03] MEDS: *HR* Metoprolol 5 MG/5 ML VIAL IVP PRN ×2 (03:36→17:43)
[2021-11-03] MEDS: Ipratropium 1 PUFF INHALER IH SCH ×4 (03:48→20:03)
[2021-11-03] MEDS: Budesonide/Formoterol 160/4.5 1 PUFF INH IH SCH ×2 (07:50→20:03)
[2021-11-03] MEDS: *HR* HYDROcodone/Acet 10/325 mg TABLET PO PRN ×2 (08:36→16:42)
[2021-11-03] MEDS: lisinopriL 20 MG TABLET PO SCH (08:40)
[2021-11-03] MEDS: Cholecalciferol (D-3) 1,000 UNIT (25MCG) TABLET PO SCH (08:40)
[2021-11-03] MEDS: Furosemide 20 MG/2 ML VIAL IVP SCH (08:43)
[2021-11-03] MEDS: Metoprolol 100 MG TABLET PO SCH ×2 (08:43→20:07)
[2021-11-03] MEDS: (Roflumilast [Daliresp] 500 MCG PO SCH (08:43)
[2021-11-03] MEDS: Apixaban 5 MG TABLET PO SCH ×2 (08:43→20:07)
[2021-11-03] MEDS: Chlorhexidine Rinse 15 ML MOUTHWASH MM SCH ×2 (08:44→20:07)
[2021-11-03] MEDS: DilTIAZem CD (24hr) 120 MG CAP.ER.24H PO SCH (08:44)
[2021-11-03] MEDS: Aspirin 81 MG TAB.CHEW PO SCH (08:44)
[2021-11-03 09:37] LABS: Ferritin 229 ng/mL (20-250)
[2021-11-03] MEDS: hydrOXYzine pamoate 25 MG CAPSULE PO PRN (13:21)
[2021-11-03] MEDS: Remdesivir 100 MG in 0.9 % Sodium Chloride 100 ML IVPB SCH (20:07)
[2021-11-04] MEDS: *HR* HYDROcodone/Acet 10/325 mg TABLET PO PRN ×3 (00:39→17:38)
[2021-11-04 01:50] LABS: Basophils % 0.1 %; Hematocrit 42.5 % (37.5-50.1); Hemoglobin 14.1 g/dL (12.9-16.9); Immature Granulocytes % 0.4 % (0-4); Lymphocytes # 0.6 K/mcL (0.6-4.6); Lymphocytes % 6.6 %; Mean Corpuscular HGB Conc 33.2 g/dL (31.6-35.5); Mean Corpuscular Hemoglobin 30.9 pg (28.0-33.3); Mean Platelet Volume 10.9 fL (9.4-12.4); Monocytes # 0.5 K/mcL (0.0-1.3); Monocytes % 5.2 %; Neutrophils # 8.2 K/mcL (1.6-8.9); Platelet Count 188 K/mcL (140-400); Red Blood Count 4.57 M/mcL (4.19-5.50); Red Cell Distribution Width 14.2 % (11.5-14.5); Segmented Neutrophils % 87.7 %; White Blood Count 9.3 K/mcL (4.3-11.1)
[2021-11-04 02:04] LABS: INR 1.6; Prothrombin Time 17.4 Seconds (9.4-12.1)
[2021-11-04 02:06] LABS: D-Dimer < 215 ng/mLFEU (0-500)
[2021-11-04] MEDS: Ipratropium 1 PUFF INHALER IH SCH ×4 (03:30→21:41)
[2021-11-04] MEDS: *HR* Metoprolol 5 MG/5 ML VIAL IVP PRN ×3 (04:18→19:00)
[2021-11-04 06:47] LABS: Alanine Aminotransferase 11 Units/L (7-52); Albumin 3.5 g/dL (3.5-5.7); Albumin/Globulin Ratio 1.2 (1.1-2.2); Alkaline Phosphatase 69 Units/L (34-104); Aspartate Amino Transferase 17 Units/L (13-39); BUN/Creatinine Ratio 45 (6-26); Bilirubin,Total 0.4 mg/dL (0.3-1.0); Blood Urea Nitrogen 33 mg/dL (8-23); C-Reactive Protein 140 mg/L (Less than 10); Calcium 8.5 mg/dL (8.6-10.3); Carbon Dioxide 23 mEq/L (23-29); Chloride 104 mEq/L (98-107); Glucose 133 mg/dL (70-105); Lactate Dehydrogenase 216 Units/L (140-271); Osmolality,Calculated 295 (280-300); Potassium 4.2 mEq/L (3.5-5.1); Sodium 138 mEq/L (136-145); Total Protein 6.5 g/dL (6.4-8.9); eGFR For African Americans > 60 (> 60); eGFR For Non-African Americans > 60 (> 60)
[2021-11-04] MEDS: Metoprolol 100 MG TABLET PO SCH ×2 (06:47→20:15)
[2021-11-04] MEDS: DilTIAZem CD (24hr) 120 MG CAP.ER.24H PO SCH (08:38)
[2021-11-04] MEDS: Cholecalciferol (D-3) 1,000 UNIT (25MCG) TABLET PO SCH (08:38)
[2021-11-04] MEDS: Apixaban 5 MG TABLET PO SCH ×2 (08:38→20:17)
[2021-11-04] MEDS: Aspirin 81 MG TAB.CHEW PO SCH (08:38)
[2021-11-04] MEDS: lisinopriL 20 MG TABLET PO SCH (08:38)
[2021-11-04] MEDS: Chlorhexidine Rinse 15 ML MOUTHWASH MM SCH ×2 (08:38→20:16)
[2021-11-04] MEDS: Furosemide 20 MG/2 ML VIAL IVP SCH (08:39)
[2021-11-04] MEDS: (Roflumilast [Daliresp] 500 MCG PO SCH (09:46)
[2021-11-04] MEDS: Budesonide/Formoterol 160/4.5 1 PUFF INH IH SCH ×2 (10:34→21:41)
[2021-11-04] MEDS ORDERED: DilTIAZem CD (24hr) 120 MG CAP.ER.24H PO ONE (13:18)
[2021-11-04 15:11] LABS: Ferritin 345 ng/mL (20-250)
[2021-11-04] MEDS: hydrOXYzine pamoate 25 MG CAPSULE PO PRN (17:38)
[2021-11-04] MEDS: Remdesivir 100 MG in 0.9 % Sodium Chloride 100 ML IVPB SCH (20:21)
[2021-11-05] MEDS: *HR* HYDROcodone/Acet 10/325 mg TABLET PO PRN ×2 (00:46→07:46)
[2021-11-05 03:07] LABS: Basophils % 0.1 %; Hematocrit 41.3 % (37.5-50.1); Hemoglobin 13.7 g/dL (12.9-16.9); Immature Granulocytes % 0.5 % (0-4); Lymphocytes # 0.7 K/mcL (0.6-4.6); Lymphocytes % 4.3 %; Mean Corpuscular HGB Conc 33.2 g/dL (31.6-35.5); Mean Corpuscular Hemoglobin 30.3 pg (28.0-33.3); Mean Corpuscular Volume 91.4 fL (83.0-100.0); Mean Platelet Volume 11.2 fL (9.4-12.4); Monocytes # 0.7 K/mcL (0.0-1.3); Monocytes % 4.6 %; Platelet Count 215 K/mcL (140-400); Red Blood Count 4.52 M/mcL (4.19-5.50); Red Cell Distribution Width 14.1 % (11.5-14.5); Segmented Neutrophils % 90.5 %
[2021-11-05] MEDS: Ipratropium 1 PUFF INHALER IH SCH ×2 (03:12→07:35)
[2021-11-05 03:13] LABS: Neutrophils # 14.5 K/mcL (1.6-8.9)
[2021-11-05 03:37] LABS: Alanine Aminotransferase 12 Units/L (7-52); Albumin 3.2 g/dL (3.5-5.7); Albumin/Globulin Ratio 1.1 (1.1-2.2); Alkaline Phosphatase 66 Units/L (34-104); Aspartate Amino Transferase 16 Units/L (13-39); BUN/Creatinine Ratio 52 (6-26); Bilirubin,Total 0.4 mg/dL (0.3-1.0); Blood Urea Nitrogen 39 mg/dL (8-23); C-Reactive Protein 65 mg/L (Less than 10); Calcium 8.5 mg/dL (8.6-10.3); Carbon Dioxide 24 mEq/L (23-29); Chloride 104 mEq/L (98-107); Glucose 140 mg/dL (70-105); Lactate Dehydrogenase 221 Units/L (140-271); Osmolality,Calculated 296 (280-300); Potassium 4.2 mEq/L (3.5-5.1); Sodium 137 mEq/L (136-145); Total Protein 6.2 g/dL (6.4-8.9); eGFR For African Americans > 60 (> 60); eGFR For Non-African Americans > 60 (> 60)
[2021-11-05 05:41] LABS: Ferritin 358 ng/mL (20-250)
[2021-11-05 07:34] VITALS: BP 142/78; PULSE 84; TEMP 97.7
[2021-11-05] MEDS: Budesonide/Formoterol 160/4.5 1 PUFF INH IH SCH (07:35)
[2021-11-05] MEDS: Chlorhexidine Rinse 15 ML MOUTHWASH MM SCH (07:45)
[2021-11-05] MEDS: Furosemide 20 MG/2 ML VIAL IVP SCH (07:45)
[2021-11-05] MEDS: Apixaban 5 MG TABLET PO SCH (07:46)
[2021-11-05] MEDS: Aspirin 81 MG TAB.CHEW PO SCH (07:46)
[2021-11-05] MEDS: Cholecalciferol (D-3) 1,000 UNIT (25MCG) TABLET PO SCH (07:46)
[2021-11-05] MEDS: Metoprolol 100 MG TABLET PO SCH (07:46)
[2021-11-05] MEDS: lisinopriL 20 MG TABLET PO SCH (07:46)
[2021-11-05] MEDS: (Roflumilast [Daliresp] 500 MCG PO SCH (07:47)
[2021-11-05] MEDS ORDERED: DilTIAZem CD (24hr) 240 MG CAP.ER.24H PO SCH (09:00)
[2021-11-05 09:16] VITALS: O2SAT 94
== END 2021-11-05 11:31 | disposition home or self-care (01) | DRG 177 ==
LOC: 3BNU → SUATTDRO 17:51 → 3BNU 17:59
PROVIDERS: ADMIT Internal Medicine; ATTEND Internal Medicine

== ENCOUNTER 2021-11-11 14:42 | Observation (INO) ==
[2021-11-11] MEDS ORDERED: Isovue-370 500 ML BOTTLE IVP ONE (15:24)
[2021-11-11 15:59] LABS: ABG Base Excess 2 mEq/L (-2 to 3); ABG HCO3 26 mEq/L (21-27); ABG Oxygen Saturation 83 % (95-98); ABG PCO2 39 mmHg (35-45); ABG PH 7.44 pH Units (7.32-7.45); ABG PO2 46 mmHg (85-104); ABG TCO2 27 mEq/L (20-26)
[2021-11-11 16:14] LABS: Basophils % 0.1 %; Hemoglobin 15.2 g/dL (12.9-16.9); Immature Granulocytes % 0.9 % (0-4); Lymphocytes # 0.4 K/mcL (0.6-4.6); Lymphocytes % 1.7 %; Mean Corpuscular HGB Conc 31.7 g/dL (31.6-35.5); Mean Corpuscular Hemoglobin 29.1 pg (28.0-33.3); Mean Corpuscular Volume 91.8 fL (83.0-100.0); Mean Platelet Volume 11.6 fL (9.4-12.4); Monocytes # 0.8 K/mcL (0.0-1.3); Monocytes % 3.5 %; Neutrophils # 21.2 K/mcL (1.6-8.9); Platelet Count 185 K/mcL (140-400); Red Blood Count 5.23 M/mcL (4.19-5.50); Red Cell Distribution Width 13.8 % (11.5-14.5); Segmented Neutrophils % 93.8 %; White Blood Count 22.6 K/mcL (4.3-11.1)
[2021-11-11] MEDS ORDERED: cefTRIAXone 1,000 MG in 0.9 % Sodium Chloride Mini Bag 100 ML IVPB ONE (16:21)
[2021-11-11] MEDS ORDERED: 0.9 % Sodium Chloride 500 ML IV ONE (16:22)
[2021-11-11] MEDS ORDERED: Azithromycin 500 MG in 0.9 % Sodium Chloride 250 ML IVPB ONE (16:22)
[2021-11-11 16:24] LABS: INR 1.5; Prothrombin Time 16.9 Seconds (9.4-12.1)
[2021-11-11 16:27] LABS: Activated Partial Thrombo Time 27.3 Seconds (26.0-36.0)
[2021-11-11 16:39] LABS: Platelet Estimate Normal (Normal)
[2021-11-11] MEDS ORDERED: 0.9 % Sodium Chloride 1,000 ML IV ONE (17:11)
[2021-11-11] MEDS ORDERED: Naloxone 0.4 MG/ML INJ IVP PRN (18:33)
[2021-11-11] MEDS ORDERED: Ondansetron 4 MG/2 ML VIAL IVP PRN (18:33)
[2021-11-11] MEDS ORDERED: Acetaminophen 325 MG TABLET PO PRN (18:33)
[2021-11-11] MEDS ORDERED: Perflutren Lipid Microsphere 1.3 ML in 0.9 % Sodium Chloride 8.7 ML IVP PRN (18:47)
[2021-11-11] MEDS: Budesonide/Formoterol 80/4.5 1 PUFF INH IH SCH (20:31)
[2021-11-11] MEDS: Ipratropium/Albuterol Neb 3 ML IH SCH (20:31)
[2021-11-11 20:43] LABS: Influenza A PCR Negative (Negative); Influenza B PCR Negative (Negative); Resp. Syncytial Virus PCR Negative (Negative)
[2021-11-11 20:44] LABS: SARS-CoV-2 by PCR (In House) Positive (Negative)
[2021-11-11] MEDS: Apixaban 5 MG TABLET PO SCH (21:00)
[2021-11-11 21:27] LABS: Bilirubin,Urine Negative (Negative); Blood,Urine Negative (Negative); Clarity,Urine Clear (Clear); Color,Urine Light-Yellow (Yellow); Glucose,Urine (UA) Normal (Normal); Ketones,Urine Negative (Negative); Leukocyte Esterase,Urine Negative (Negative); Nitrite,Urine Negative (Negative); Protein,Urine Trace mg/dL (Neg-Trace); Specific Gravity,Urine 1.027 (1.010-1.025); Urobilinogen,Urine Normal (Normal)
[2021-11-11 22:17] LABS: Alanine Aminotransferase 13 Units/L (7-52); Albumin 3.3 g/dL (3.5-5.7); Albumin/Globulin Ratio 1.1 (1.1-2.2); Alkaline Phosphatase 90 Units/L (34-104); Aspartate Amino Transferase 15 Units/L (13-39); BUN/Creatinine Ratio 50 (6-26); Bilirubin,Direct 0.1 mg/dL (0.0-0.2); Bilirubin,Indirect 0.6 mg/dL (0.0-1.0); Bilirubin,Total 0.7 mg/dL (0.3-1.0); Blood Urea Nitrogen 57 mg/dL (8-23); Calcium 8.7 mg/dL (8.6-10.3); Carbon Dioxide 26 mEq/L (23-29); Chloride 103 mEq/L (98-107); Glucose 166 mg/dL (70-105); Magnesium 2.2 mg/dL (1.6-2.6); Osmolality,Calculated 306 (280-300); Potassium 4.7 mEq/L (3.5-5.1); Sodium 138 mEq/L (136-145); Total Protein 6.3 g/dL (6.4-8.9); Troponin I 0.07 ng/mL (< 0.04); eGFR For African Americans > 60 (> 60); eGFR For Non-African Americans > 60 (> 60)
[2021-11-11] MEDS ORDERED: *HR* Metoprolol 5 MG/5 ML VIAL IVP ONE (23:22)
[2021-11-11] MEDS: Piperacillin/Tazobactam 3.375 GM in 0.9 % Sodium Chloride Mini Bag 100 ML IVPB SCH (23:54)
[2021-11-11] MEDS: MethylPREDNISolone 40 MG/ML VIAL IVP SCH (23:54)
[2021-11-12] MEDS: Ipratropium/Albuterol Neb 3 ML IH SCH (03:21)
[2021-11-12] MEDS ORDERED: Ipratropium 1 PUFF INHALER IH ONE (05:10)
[2021-11-12] MEDS: Ipratropium 1 PUFF INHALER IH SCH ×2 (06:15→07:58)
[2021-11-12] MEDS: Budesonide/Formoterol 80/4.5 1 PUFF INH IH SCH (07:58)
[2021-11-12 08:07] VITALS: BP 131/84; PULSE 78; TEMP 98.1; O2SAT 92
[2021-11-12] MEDS ORDERED: Nitroglycerin 0.4 MG TAB.SUBL SL PRN (08:18)
[2021-11-12] MEDS ORDERED: *HR* HYDROcodone/Acet 10/325 mg TABLET PO PRN (08:18)
[2021-11-12] MEDS ORDERED: Aspirin 81 MG TAB.CHEW PO SCH (09:00)
[2021-11-12] MEDS ORDERED: Metoprolol 100 MG TABLET PO SCH (09:00)
[2021-11-12] MEDS ORDERED: DilTIAZem CD (24hr) 240 MG CAP.ER.24H PO SCH (09:00)
[2021-11-12] MEDS ORDERED: *HR* Metoprolol 5 MG/5 ML VIAL IVP STA (09:12)
[2021-11-12] MEDS ORDERED: *HR* Metoprolol 5 MG/5 ML VIAL IVP ONE (09:14)
[2021-11-12] MEDS: Piperacillin/Tazobactam 3.375 GM in 0.9 % Sodium Chloride Mini Bag 100 ML IVPB SCH (09:18)
[2021-11-12] MEDS: Apixaban 5 MG TABLET PO SCH (09:23)
[2021-11-12] MEDS: MethylPREDNISolone 40 MG/ML VIAL IVP SCH (09:24)
[2021-11-12 11:11] LABS: Basophils % 0.1 %; Hematocrit 44.4 % (37.5-50.1); Hemoglobin 14.2 g/dL (12.9-16.9); Immature Granulocytes % 0.7 % (0-4); Lymphocytes # 0.3 K/mcL (0.6-4.6); Lymphocytes % 1.6 %; Mean Corpuscular Hemoglobin 29.8 pg (28.0-33.3); Mean Corpuscular Volume 93.3 fL (83.0-100.0); Mean Platelet Volume 11.4 fL (9.4-12.4); Monocytes # 0.6 K/mcL (0.0-1.3); Monocytes % 3.3 %; Neutrophils # 15.9 K/mcL (1.6-8.9); Platelet Count 242 K/mcL (140-400); Red Blood Count 4.76 M/mcL (4.19-5.50); Red Cell Distribution Width 13.7 % (11.5-14.5); Segmented Neutrophils % 94.3 %; White Blood Count 16.8 K/mcL (4.3-11.1)
[2021-11-12 11:37] LABS: Alanine Aminotransferase 12 Units/L (7-52); Albumin 3.1 g/dL (3.5-5.7); Albumin/Globulin Ratio 1.2 (1.1-2.2); Alkaline Phosphatase 82 Units/L (34-104); Aspartate Amino Transferase 12 Units/L (13-39); BUN/Creatinine Ratio 39 (6-26); Bilirubin,Total 0.6 mg/dL (0.3-1.0); Blood Urea Nitrogen 45 mg/dL (8-23); Calcium 8.6 mg/dL (8.6-10.3); Carbon Dioxide 24 mEq/L (23-29); Chloride 103 mEq/L (98-107); Globulin 2.6 g/dL (2.4-3.5); Glucose 250 mg/dL (70-105); Osmolality,Calculated 304 (280-300); Potassium 4.2 mEq/L (3.5-5.1); Sodium 137 mEq/L (136-145); Total Protein 5.7 g/dL (6.4-8.9); Troponin I 0.08 ng/mL (< 0.04); eGFR For African Americans > 60 (> 60); eGFR For Non-African Americans > 60 (> 60)
== END 2021-11-12 13:39 | disposition home or self-care (01) ==
LOC: EMEROOARM 14:42 → 3ANU 14:42 → SUATTDRO 18:33 → 3ANU 20:22
PROVIDERS: ADMIT Family Medicine; ATTEND General Practice

== ENCOUNTER 2021-11-16 18:36 | Observation (INO) ==
[2021-11-16] MEDS ORDERED: 0.9 % Sodium Chloride 1,000 ML IV ONE (19:44)
[2021-11-16 19:51] LABS: Basophils % 0.1 %; Eosinophils % 0.1 %; Hematocrit 45.3 % (37.5-50.1); Hemoglobin 14.4 g/dL (12.9-16.9); Immature Granulocytes % 0.7 % (0-4); Lymphocytes # 1.1 K/mcL (0.6-4.6); Lymphocytes % 5.4 %; Mean Corpuscular HGB Conc 31.8 g/dL (31.6-35.5); Mean Corpuscular Hemoglobin 29.8 pg (28.0-33.3); Mean Corpuscular Volume 93.8 fL (83.0-100.0); Mean Platelet Volume 11.3 fL (9.4-12.4); Monocytes # 1.3 K/mcL (0.0-1.3); Monocytes % 6.7 %; Neutrophils # 16.9 K/mcL (1.6-8.9); Platelet Count 189 K/mcL (140-400); Red Blood Count 4.83 M/mcL (4.19-5.50); Red Cell Distribution Width 13.6 % (11.5-14.5); White Blood Count 19.5 K/mcL (4.3-11.1)
[2021-11-16 20:01] LABS: INR 1.7; Prothrombin Time 18.9 Seconds (9.4-12.1)
[2021-11-16 20:04] LABS: Activated Partial Thrombo Time 28.7 Seconds (26.0-36.0); D-Dimer < 215 ng/mLFEU (0-500)
[2021-11-16 20:05] LABS: Calcium 8.8 mg/dL (8.6-10.3); Potassium 4.3 mEq/L (3.5-5.1)
[2021-11-16 20:14] LABS: Troponin I 0.08 ng/mL (< 0.04)
[2021-11-16 20:33] LABS: Magnesium 2.2 mg/dL (1.6-2.6)
[2021-11-16] MEDS ORDERED: Melatonin 3 MG TABLET PO PRN (21:52)
[2021-11-16] MEDS ORDERED: Ondansetron 4 MG/2 ML VIAL IVP PRN (21:52)
[2021-11-16] MEDS ORDERED: Acetaminophen 325 MG TABLET PO PRN (21:52)
[2021-11-16] MEDS ORDERED: Naloxone 0.4 MG/ML INJ IVP PRN (21:52)
[2021-11-16] MEDS ORDERED: MOM Conc 10 ML UD.LIQ PO PRN (21:52)
[2021-11-16 22:20] LABS: Phosphorous 3.3 mg/dL (2.7-4.5)
[2021-11-16] MEDS ORDERED: 0.9 % Sodium Chloride 500 ML IVC ONE (22:50)
[2021-11-16] MEDS ORDERED: 0.9 % Sodium Chloride 1,000 ML IVC SCH (23:00)
[2021-11-17 02:48] LABS: Basophils % 0.1 %; Eosinophils % 0.2 %; Hematocrit 38.9 % (37.5-50.1); Immature Granulocytes % 0.6 % (0-4); Lymphocytes % 6.6 %; Mean Corpuscular HGB Conc 31.9 g/dL (31.6-35.5); Mean Corpuscular Hemoglobin 29.7 pg (28.0-33.3); Mean Corpuscular Volume 93.1 fL (83.0-100.0); Mean Platelet Volume 11.4 fL (9.4-12.4); Monocytes # 1.2 K/mcL (0.0-1.3); Monocytes % 7.9 %; Neutrophils # 13.4 K/mcL (1.6-8.9); Platelet Count 165 K/mcL (140-400); Red Blood Count 4.18 M/mcL (4.19-5.50); Red Cell Distribution Width 13.7 % (11.5-14.5); Segmented Neutrophils % 84.6 %; White Blood Count 15.8 K/mcL (4.3-11.1)
[2021-11-17 02:51] LABS: Hemoglobin 12.4 g/dL (12.9-16.9)
[2021-11-17 03:11] LABS: BUN/Creatinine Ratio 40 (6-26); Blood Urea Nitrogen 47 mg/dL (8-23); Calcium 7.7 mg/dL (8.6-10.3); Carbon Dioxide 24 mEq/L (23-29); Chloride 107 mEq/L (98-107); Glucose 77 mg/dL (70-105); Osmolality,Calculated 297 (280-300); Potassium 3.8 mEq/L (3.5-5.1); Sodium 138 mEq/L (136-145); Troponin I 0.07 ng/mL (< 0.04); eGFR For African Americans > 60 (> 60); eGFR For Non-African Americans > 60 (> 60)
[2021-11-17] MEDS: Apixaban 5 MG TABLET PO SCH ×2 (08:53→20:32)
[2021-11-17] MEDS: Metoprolol 100 MG TABLET PO SCH ×2 (08:54→20:33)
[2021-11-17] MEDS: DilTIAZem CD (24hr) 240 MG CAP.ER.24H PO SCH (08:54)
[2021-11-17] MEDS: Aspirin 81 MG TAB.CHEW PO SCH (08:54)
[2021-11-17 11:29] LABS: Estimated Average Glucose 163 mg/dl; Hemoglobin A1C 7.3 %
[2021-11-17] MEDS ORDERED: Ipratropium/Albuterol Neb 3 ML IH PRN (20:32)
[2021-11-17] MEDS: Budesonide/Formoterol 80/4.5 1 PUFF INH IH SCH (21:13)
[2021-11-18] MEDS ORDERED: Levalbuterol Neb 1.25 MG/3 ML IH PRN (00:32)
[2021-11-18] MEDS: Aspirin 81 MG TAB.CHEW PO SCH (08:41)
[2021-11-18] MEDS: Apixaban 5 MG TABLET PO SCH (08:41)
[2021-11-18] MEDS: DilTIAZem CD (24hr) 240 MG CAP.ER.24H PO SCH (08:41)
[2021-11-18] MEDS: Metoprolol 100 MG TABLET PO SCH (08:41)
[2021-11-18 10:33] VITALS: BP 109/66; PULSE 67; TEMP 98.8
[2021-11-18] MEDS: Budesonide/Formoterol 80/4.5 1 PUFF INH IH SCH (11:30)
[2021-11-18 11:35] VITALS: O2SAT 95
== END 2021-11-18 12:00 | disposition home health service (06) ==
LOC: EMEROOARM 18:36 → 2ANU 18:36 → SUATTDRO 21:56 → 2ANU 22:45
PROVIDERS: ADMIT Internal Medicine; ATTEND Internal Medicine

== ENCOUNTER 2022-04-18 05:58 | Inpatient (IN) ==
[2022-04-18 06:56] LABS: Basophils % 0.1 %; Eosinophils % 0.3 %; Hemoglobin 12.2 g/dL (12.9-16.9); Immature Granulocytes % 0.3 % (0-4); Lymphocytes # 0.5 K/mcL (0.6-4.6); Lymphocytes % 3.4 %; Mean Corpuscular HGB Conc 32.1 g/dL (31.6-35.5); Mean Corpuscular Hemoglobin 29.9 pg (28.0-33.3); Mean Corpuscular Volume 93.1 fL (83.0-100.0); Mean Platelet Volume 10.5 fL (9.4-12.4); Monocytes # 0.4 K/mcL (0.0-1.3); Monocytes % 2.7 %; Neutrophils # 14.5 K/mcL (1.6-8.9); Platelet Count 214 K/mcL (140-400); Red Blood Count 4.08 M/mcL (4.19-5.50); Red Cell Distribution Width 14.8 % (11.5-14.5); Segmented Neutrophils % 93.2 %; White Blood Count 15.5 K/mcL (4.3-11.1)
[2022-04-18 07:04] LABS: Bilirubin,Urine Negative (Negative); Blood,Urine Negative (Negative); Clarity,Urine Clear (Clear); Color,Urine Light-Yellow (Yellow); Glucose,Urine (UA) Normal (Normal); Ketones,Urine Negative (Negative); Leukocyte Esterase,Urine Negative (Negative); Nitrite,Urine Negative (Negative); PH,Urine 7.5 pH Units (5.0-8.0); Protein,Urine Negative (Neg-Trace); Specific Gravity,Urine 1.019 (1.010-1.025); Urobilinogen,Urine Normal (Normal)
[2022-04-18 07:06] LABS: INR 1.2; Prothrombin Time 13.5 Seconds (9.4-12.1)
[2022-04-18 07:08] LABS: Activated Partial Thrombo Time 28.8 Seconds (26.0-36.0)
[2022-04-18] MEDS ORDERED: cefTRIAXone 1,000 MG in 0.9 % Sodium Chloride 10 ML IVP ONE (07:12)
[2022-04-18] MEDS ORDERED: Azithromycin 250 MG TABLET PO ONE (07:12)
[2022-04-18] MEDS ORDERED: Isovue-370 500 ML BOTTLE IVP ONE (07:19)
[2022-04-18] MEDS ORDERED: *HR* Metoprolol 5 MG/5 ML VIAL IVP ONE (07:19)
[2022-04-18] MEDS ORDERED: Acetaminophen 325 MG TABLET PO ONE (07:21)
[2022-04-18] MEDS ORDERED: 0.9 % Sodium Chloride 1,000 ML IVC ONE (07:21)
[2022-04-18 07:22] LABS: Alanine Aminotransferase 11 Units/L (7-52); Albumin 3.7 g/dL (3.5-5.7); Albumin/Globulin Ratio 1.5 (1.1-2.2); Alkaline Phosphatase 84 Units/L (34-104); Aspartate Amino Transferase 15 Units/L (13-39); BUN/Creatinine Ratio 22 (6-26); Bilirubin,Direct 0.2 mg/dL (0.0-0.2); Bilirubin,Indirect 0.4 mg/dL (0.0-1.0); Bilirubin,Total 0.6 mg/dL (0.3-1.0); Blood Urea Nitrogen 19 mg/dL (8-23); Calcium 9.2 mg/dL (8.6-10.3); Carbon Dioxide 28 mEq/L (23-29); Chloride 100 mEq/L (98-107); Globulin 2.4 g/dL (2.4-3.5); Glucose 148 mg/dL (70-105); Lipase 9 Units/L (11-82); Osmolality,Calculated 291 (280-300); Sodium 138 mEq/L (136-145); Total Protein 6.1 g/dL (6.4-8.9); Troponin I 0.04 ng/mL (< 0.04); eGFR For African Americans > 60 (> 60); eGFR For Non-African Americans > 60 (> 60)
[2022-04-18 07:39] LABS: Influenza A PCR Negative (Negative); Influenza B PCR Negative (Negative); Resp. Syncytial Virus PCR Negative (Negative)
[2022-04-18 07:42] LABS: SARS-CoV-2 by PCR (In House) Negative (Negative)
[2022-04-18] MEDS ORDERED: MOM Conc 10 ML UD.LIQ PO PRN (09:17)
[2022-04-18] MEDS ORDERED: Acetaminophen 325 MG TABLET PO PRN (09:17)
[2022-04-18] MEDS ORDERED: Mag Hydrox/Al Hydrox/Simeth 30 ML UDC PO PRN (09:17)
[2022-04-18] MEDS ORDERED: Ondansetron 4 MG/2 ML VIAL IVP PRN (09:17)
[2022-04-18] MEDS ORDERED: Naloxone 0.4 MG/ML INJ IVP PRN (09:17)
[2022-04-18] MEDS ORDERED: NON-FORMULARY MEDICATION 1 EACH EACH (Fluticasone/Umeclidin/Vilanter [Trelegy Ellipta 200- IH SCH (09:30)
[2022-04-18] MEDS ORDERED: Tiotropium 10 INH DOSE IH SCH (10:00)
[2022-04-18] MEDS: Budesonide/Formoterol 160/4.5 1 PUFF INH IH SCH ×2 (10:46→21:14)
[2022-04-18] MEDS: Aspirin 81 MG TAB.CHEW PO SCH (11:04)
[2022-04-18] MEDS: *HR* HYDROcodone/Acet 10/325 mg TABLET PO PRN ×3 (11:04→23:10)
[2022-04-18] MEDS: DilTIAZem CD (24hr) 240 MG CAP.ER.24H PO SCH (11:04)
[2022-04-18] MEDS: lisinopriL 5 MG TABLET PO SCH ×2 (11:04→20:13)
[2022-04-18] MEDS: Metoprolol XL (24 HR) Succ 50 MG TAB.ER.24H PO SCH ×2 (11:18→20:13)
[2022-04-18] MEDS: Apixaban 5 MG TABLET PO SCH ×2 (11:18→20:12)
[2022-04-18] MEDS: 0.9 % Sodium Chloride 1,000 ML IVC SCH ×2 (11:19→22:38)
[2022-04-18] MEDS: calcium polycarbophiL 625 MG TABLET PO SCH ×2 (14:46→22:40)
[2022-04-18] MEDS: Ipratropium/Albuterol Neb 3 ML IH SCH ×2 (15:50→21:13)
[2022-04-18] MEDS: Furosemide 20 MG TABLET PO SCH (17:10)
[2022-04-18] MEDS: MethylPREDNISolone 40 MG/ML VIAL IVP SCH (17:10)
[2022-04-18] MEDS: Famotidine 20 MG TABLET PO SCH (20:12)
[2022-04-18] MEDS: Piperacillin/Tazobactam 3.375 GM in 0.9 % Sodium Chloride Mini Bag 100 ML IVPB SCH (20:37)
[2022-04-19] MEDS: Ipratropium/Albuterol Neb 3 ML IH SCH ×4 (04:00→22:53)
[2022-04-19] MEDS: Piperacillin/Tazobactam 3.375 GM in 0.9 % Sodium Chloride Mini Bag 100 ML IVPB SCH ×3 (04:36→18:14)
[2022-04-19] MEDS: MethylPREDNISolone 40 MG/ML VIAL IVP SCH ×2 (05:06→17:13)
[2022-04-19 05:07] LABS: Hematocrit 35.9 % (37.5-50.1); Hemoglobin 11.3 g/dL (12.9-16.9); Mean Corpuscular HGB Conc 31.5 g/dL (31.6-35.5); Mean Corpuscular Volume 92.3 fL (83.0-100.0); Mean Platelet Volume 10.7 fL (9.4-12.4); Platelet Count 200 K/mcL (140-400); Red Blood Count 3.89 M/mcL (4.19-5.50); Red Cell Distribution Width 15.3 % (11.5-14.5); White Blood Count 18.1 K/mcL (4.3-11.1)
[2022-04-19] MEDS: *HR* HYDROcodone/Acet 10/325 mg TABLET PO PRN ×4 (05:10→23:06)
[2022-04-19 05:27] LABS: BUN/Creatinine Ratio 20 (6-26); Blood Urea Nitrogen 17 mg/dL (8-23); Calcium 9.2 mg/dL (8.6-10.3); Carbon Dioxide 26 mEq/L (23-29); Chloride 105 mEq/L (98-107); Glucose 161 mg/dL (70-105); Magnesium 2.1 mg/dL (1.6-2.6); Osmolality,Calculated 295 (280-300); Potassium 4.2 mEq/L (3.5-5.1); Sodium 140 mEq/L (136-145); eGFR For African Americans > 60 (> 60); eGFR For Non-African Americans > 60 (> 60)
[2022-04-19] MEDS: Metoprolol XL (24 HR) Succ 50 MG TAB.ER.24H PO SCH ×2 (10:10→22:21)
[2022-04-19] MEDS: DilTIAZem CD (24hr) 240 MG CAP.ER.24H PO SCH (10:10)
[2022-04-19] MEDS: Budesonide/Formoterol 160/4.5 1 PUFF INH IH SCH ×2 (10:56→22:53)
[2022-04-19] MEDS: calcium polycarbophiL 625 MG TABLET PO SCH ×2 (11:37→22:21)
[2022-04-19] MEDS: Furosemide 20 MG TABLET PO SCH ×2 (11:37→17:12)
[2022-04-19] MEDS: Apixaban 5 MG TABLET PO SCH ×2 (11:37→22:21)
[2022-04-19] MEDS: Aspirin 81 MG TAB.CHEW PO SCH (11:37)
[2022-04-19] MEDS: lisinopriL 5 MG TABLET PO SCH ×2 (11:37→22:21)
[2022-04-19] MEDS ORDERED: Lidocaine -MPF 2% 2 ML VIAL ONE (13:38)
[2022-04-19] MEDS ORDERED: Lidocaine -MPF 4% 5 ML AMPUL ONE (13:39)
[2022-04-19] MEDS: Famotidine 20 MG TABLET PO SCH (22:21)
[2022-04-20 03:10] LABS: Hematocrit 31.1 % (37.5-50.1); Mean Corpuscular HGB Conc 32.2 g/dL (31.6-35.5); Mean Corpuscular Hemoglobin 29.4 pg (28.0-33.3); Mean Corpuscular Volume 91.5 fL (83.0-100.0); Mean Platelet Volume 10.7 fL (9.4-12.4); Platelet Count 206 K/mcL (140-400); Red Cell Distribution Width 15.4 % (11.5-14.5); White Blood Count 17.2 K/mcL (4.3-11.1)
[2022-04-20 03:27] LABS: BUN/Creatinine Ratio 28 (6-26); Blood Urea Nitrogen 22 mg/dL (8-23); Calcium 8.8 mg/dL (8.6-10.3); Carbon Dioxide 25 mEq/L (23-29); Chloride 105 mEq/L (98-107); Glucose 141 mg/dL (70-105); Osmolality,Calculated 290 (280-300); Sodium 137 mEq/L (136-145); eGFR For African Americans > 60 (> 60); eGFR For Non-African Americans > 60 (> 60)
[2022-04-20] MEDS: Ipratropium/Albuterol Neb 3 ML IH SCH ×4 (03:36→21:57)
[2022-04-20] MEDS: Piperacillin/Tazobactam 3.375 GM in 0.9 % Sodium Chloride Mini Bag 100 ML IVPB SCH ×3 (04:01→18:19)
[2022-04-20] MEDS: MethylPREDNISolone 40 MG/ML VIAL IVP SCH (05:27)
[2022-04-20] MEDS: *HR* HYDROcodone/Acet 10/325 mg TABLET PO PRN ×3 (06:54→21:32)
[2022-04-20] MEDS: Aspirin 81 MG TAB.CHEW PO SCH (08:49)
[2022-04-20] MEDS: predniSONE 20 MG TABLET PO SCH (08:49)
[2022-04-20] MEDS: Apixaban 5 MG TABLET PO SCH ×2 (08:49→21:33)
[2022-04-20] MEDS: lisinopriL 5 MG TABLET PO SCH ×2 (08:50→21:33)
[2022-04-20] MEDS: Furosemide 20 MG TABLET PO SCH ×2 (08:50→14:53)
[2022-04-20] MEDS: Metoprolol XL (24 HR) Succ 50 MG TAB.ER.24H PO SCH ×2 (08:50→21:32)
[2022-04-20] MEDS: DilTIAZem CD (24hr) 240 MG CAP.ER.24H PO SCH (09:51)
[2022-04-20] MEDS: calcium polycarbophiL 625 MG TABLET PO SCH ×2 (11:27→21:33)
[2022-04-20] MEDS: Budesonide/Formoterol 160/4.5 1 PUFF INH IH SCH ×2 (11:32→21:57)
[2022-04-20] MEDS: Famotidine 20 MG TABLET PO SCH (21:32)
[2022-04-21] MEDS: *HR* HYDROcodone/Acet 10/325 mg TABLET PO PRN ×2 (02:47→09:30)
[2022-04-21] MEDS: Piperacillin/Tazobactam 3.375 GM in 0.9 % Sodium Chloride Mini Bag 100 ML IVPB SCH (02:48)
[2022-04-21 03:17] LABS: Hemoglobin 10.3 g/dL (12.9-16.9); Mean Corpuscular HGB Conc 32.2 g/dL (31.6-35.5); Mean Corpuscular Hemoglobin 29.3 pg (28.0-33.3); Mean Corpuscular Volume 90.9 fL (83.0-100.0); Mean Platelet Volume 10.4 fL (9.4-12.4); Platelet Count 210 K/mcL (140-400); Red Blood Count 3.52 M/mcL (4.19-5.50); Red Cell Distribution Width 15.1 % (11.5-14.5); White Blood Count 16.2 K/mcL (4.3-11.1)
[2022-04-21 03:33] LABS: BUN/Creatinine Ratio 30 (6-26); Blood Urea Nitrogen 24 mg/dL (8-23); Calcium 8.6 mg/dL (8.6-10.3); Carbon Dioxide 27 mEq/L (23-29); Chloride 103 mEq/L (98-107); Glucose 132 mg/dL (70-105); Osmolality,Calculated 290 (280-300); Potassium 3.8 mEq/L (3.5-5.1); Sodium 137 mEq/L (136-145); eGFR For African Americans > 60 (> 60); eGFR For Non-African Americans > 60 (> 60)
[2022-04-21] MEDS: Ipratropium/Albuterol Neb 3 ML IH SCH ×2 (04:08→10:55)
[2022-04-21 06:40] VITALS: BP 145/83; PULSE 100; TEMP 97.8; O2SAT 95
[2022-04-21] MEDS: lisinopriL 5 MG TABLET PO SCH (09:30)
[2022-04-21] MEDS: Aspirin 81 MG TAB.CHEW PO SCH (09:30)
[2022-04-21] MEDS: predniSONE 20 MG TABLET PO SCH (09:30)
[2022-04-21] MEDS: DilTIAZem CD (24hr) 240 MG CAP.ER.24H PO SCH (09:31)
[2022-04-21] MEDS: Metoprolol XL (24 HR) Succ 50 MG TAB.ER.24H PO SCH (09:31)
[2022-04-21] MEDS: Furosemide 20 MG TABLET PO SCH (09:31)
[2022-04-21] MEDS: Apixaban 5 MG TABLET PO SCH (09:31)
[2022-04-21] MEDS: Budesonide/Formoterol 160/4.5 1 PUFF INH IH SCH (10:55)
== END 2022-04-21 11:00 | disposition home or self-care (01) | DRG 871 ==
LOC: 3NENU 05:58 → EMEROOARM 05:58 → 3NENU 10:25
PROVIDERS: ADMIT Internal Medicine; ATTEND Internal Medicine